=== PATIENT | female | born 1960 | race Caucasian/White ===

== ENCOUNTER 2023-07-01 11:01 | Emergency (ER) | payer MEDICARE, SELFPAY ==
--- NOTE | ~2023-07-01 | CT_ITS ---
EXAMINATION: CT abdomen pelvis w con DATE: 07/01/2023 12:59 INDICATION: Abdominal pain TECHNIQUE: Computed tomography (CT) of the abdomen and pelvis was performed with 100 mL Omnipaque-350 intravenous contrast. Automated exposure control and iterative reconstruction technique were employe d. The dose-length product was 860.96 mGy-cm. COMPARISON: None FINDINGS: Severe emphysema in the dependent lower lungs. Mild atelectasis/scarring at the lingula. Calcified ri ght lower lobe nodule and calcified splenic nodules consistent with old granulomatous disease. Heart size is normal. Atherosclerotic coronary artery calcification. No pericardial or pleural effusion. Th ere is mild enlargement of the central pulmonary arteries which can be seen with pulmonary arterial h ypertension. Small sliding-type hiatal hernia. Focal hepatic steatosis at the ligamentum teres. Yudy cystectomy clips the gallbladder fossa. Pancreas and bilateral adrenal glands are normal. Bilateral r enal cysts, tiny on the left and large on the right, the largest measuring up to 5.0 cm. Nonobstructi ng 2-3 mm stone at an upper pole calyx of the right kidney. Normal appendix at the tip of the wanderi ng cecum which is located in the left upper quadrant. There are multiple diverticula along the sigmoi d colon where there is some wall thickening and surrounding inflammatory stranding which could be rel ated to diverticulitis or a distal colitis. No bowel obstruction. Bladder is normal. The uterus is no t identified and has likely been surgically resected. Minimal likely reactive free fluid in the deep pelvis. No abscess or free intraperitoneal gas. Small fat-containing umbilical hernia. No pathologica lly enlarged abdominal or pelvic lymphadenopathy. Relatively recent-appearing L4 burst fracture with linear sclerosis underlying the depressed superior endplate with one third vertebral body height loss and with couple millimeter retropulsion. Severe lower thoracic spondylosis with a few chronic mild c ompression fractures in the lower thoracic spine. IMPRESSION: 1. Radiographically uncomplicated sigmoid diverticulitis versus colitis. 2. Relatively recent-appearing L4 burst fracture. 3. Small sliding-type hiatal hernia. Reviewed, dictated and finalized at location A.
[2023-07-01 11:16] VITALS: BP 131/80; PULSE 110; RESP 20; TEMP 36.4; O2SAT 98
[2023-07-01 12:30] LABS: Basophils Percent Auto 0.2 % (0.2-1.2); Eosinophils Absolute Auto 0.5 K/mm3 (0-0.3); Eosinophils Percent Auto 3.8 % (0-4.4); Hematocrit 43.1 % (37.0-47.0); Immature Granulocyte Absolute 0.08 K/mm3 (0.00-0.031); Immature Granulocyte Percent A 0.6 % (0-0.5); Immature Platelet Fraction Pct 3.4 % (0.9-11.2); Lymphocytes Absolute Auto 1.14 K/mm3 (0.9-3.2); Lymphocytes Percent Auto 9.1 % (18.3-44.2); Mean Corpuscular HGB Conc 27.8 g/dl (32-36); Mean Corpuscular Hemoglobin 20.5 pg (26-34); Mean Corpuscular Volume 73.8 fl (80-100); Mean Platelet Volume 9.6 fl (7.4-10.4); Monocytes Absolute Auto 1.1 K/mm3 (0.1-0.6); Monocytes Percent Auto 8.9 % (2.6-8.5); Neutrophils Absolute Auto 9.6 K/mm3 (1.3-6.7); Neutrophils Percent Auto 77.4 % (45.5-73.1); Platelet Count Result 272 k/mm3 (150-375); Red Blood Count 5.84 M/mm3 (4.2-5.4); Red Cell Distribution Width 18.6 % (11.5-14.5); White Blood Count 12.5 K/mm3 (4.5-10.0)
[2023-07-01 12:38] LABS: Lactic Acid Reflex 2.1 mmol/L (0.7-2.0)
[2023-07-01 12:40] LABS: Alanine Aminotransferase 18 U/L (6-35); Albumin Level 4.1 g/dL (3.5-5.1); Alkaline Phosphatase 113 U/L (38-126); Anion Gap 8 mmol/L (8-16); Aspartate Amino Transferase 21 U/L (14-36); Bilirubin,Total 0.6 mg/dL (0.2-1.3); Blood Urea Nitrogen 16 mg/dL (7-17); Calcium 8.9 mg/dL (8.4-10.2); Carbon Dioxide 27 mmol/L (22-30); Chloride 102 mmol/L (98-107); Estimated CRCL calculation 57 ml/min; Estimated Glomerular Filt Rate > 60; Glucose 74 mg/dL (65-110); Lipase 37 U/L (23-300); Potassium 4.1 mmol/L (3.4-5.0); Sodium 137 mmol/L (137-145)
--- NOTE | 2023-07-01 12:40 | ED.ABDPAIN ---
HPI - Abdominal Pain General Chief Complaint: Abdominal Pain Stated Complaint: abdominal pain Time Seen by Provider: 07/01/23 12:04 History of Present Illness HPI narrative: 63-year-old female present emerged department for evaluation of persistent lower abdominal pain. Patient reports she was seen at [facility] approximately 3 weeks ago and was diagnosed with constipation. Patient was treated with a fleets enema but states that symptoms not improved. Patient states she has not been taking stool softeners. Patient reports she is still passing stool. Patient is complaining of lower abdominal pain. Patient denies any pain with urination Related Data Allergies Allergy/AdvReac Type Severity Reaction Status Date / Time codeine Allergy Unknown Swelling Verified 07/01/23 11:02 of Lip/Tongue/Throat Review of Systems Review of Systems: All systems reviewed & are unremarkable except as noted in HPI and below Exam Narrative: APPEARANCE: Well appearing, no pain, no distress, well-nourished. HEAD: normocephalic, atraumatic. EYES: PERRLA/EOMI, conjunctivae clear. NOSE: Normal no drainage NECK: Supple. No adenopathy, no masses. RESPIRATORY: Airway patent, respirations nonlabored. Clear to auscultation bilaterally, no rales, rhonchi, wheezing. CARDIOVASCULAR: Regular rate and rhythm without murmurs rubs or gallops. ABDOMINAL: Soft, suprapubic tenderness to palpation, nondistended, normal bowel sounds MUSCULOSKELETAL: Moves all extremities. Strength/ROM intact, No edema, No calf tenderness. NEURO: Alert. Cranial nerves II through XII intact. Grossly intact SKIN: Warm, dry. Normal Color Course Course Emergency Course: 63-year-old female presented ED for evaluation of persistent abdominal pain. Patient is afebrile with a leukocytosis of 12.5. Hemoglobin stable at 12.0. No significant abnormalities on her CMP mildly elevated lactic acid at 2.1. Patient does feel improved with treatment. CT scan showed uncomplicated diverticulitis versus colitis. Patient was at the results of the work-up and patient is comfortable with discharge to home. Patient has no underlying medication allergies. Patient was started Augmentin in the emergency department discharged home with Augmentin. Patient was also provided medications for pain control for home. Vital Signs Vital signs: Vital Signs Temperature 97.6 F 07/01/23 11:16 Pulse Rate 110 H 07/01/23 11:16 Respiratory Rate 20 10/20/23 11:16 Blood Pressure 131/80 07/01/23 11:16 Pulse Oximetry 98 07/01/23 11:16 Oxygen Delivery Room Air 07/01/23 11:16 Temperature 97.6 F 07/01/23 11:16 Pulse Rate 102 H 07/01/23 14:12 Respiratory Rate 18 07/01/23 14:12 Blood Pressure 106/82 07/01/23 14:12 Pulse Oximetry 100 07/01/23 14:12 Oxygen Delivery Room Air 07/01/23 11:16 MDM - Abdominal Pain Differential Diagnosis Differential diagnosis: Likely abdominal pain, acute appendicitis, constipation, diverticulitis and small bowel obstruction Lab Data Attestation: I reviewed the patient's lab results. 07/01/23 12:22 07/01/23 12:22 Labs: Lab Results 07/01/23 Range/Units 12:22 WBC 12.5 H (4.5-10.0) K/mm3 RBC 5.84 H (4.2-5.4) M/mm3 Hgb 12.0 (12.0-15.0) g/dL Hct 43.1 (37.0-47.0) % MCV 73.8 L (80-100) fl MCH 20.5 L (26-34) pg MCHC 27.8 L (32-36) g/dl RDW 18.6 H (11.5-14.5) % Plt Count 272 (150-375) k/mm3 MPV 9.6 (7.4-10.4) fl Immature Gran % (Auto) 0.6 H (0-0.5) % Neut % (Auto) 77.4 H (45.5-73.1) % Lymph % (Auto) 9.1 L (18.3-44.2) % [place] % (Auto) 8.9 H (2.6-8.5) % Eos % (Auto) 3.8 (0-4.4) % Baso % (Auto) 0.2 (0.2-1.2) % Lymph # (Auto) 1.14 (0.9-3.2) K/mm3 [place] # (Auto) 1.1 H (0.1-0.6) K/mm3 Eos # (Auto) 0.5 H (0-0.3) K/mm3 Baso # (Auto) 0.0 (0.0-0.1) K/mm3 Abs Immat Gran (auto) 0.08 H (0.00-0.031) K/mm3 Absolute Neuts (auto) 9.6 H (1.3-6.7) K/mm3 Ab
[2023-07-01 12:43] LABS: Hypochromasia 2+ (NORMAL); Platelet Estimate Adequate (Adequate)
[2023-07-01 12:44] LABS: Anisocytosis 1+ (NORMAL); INR 0.9; Microcytosis 1+ (NORMAL); Partial Thromboplastin Time 25.6 SECONDS (22.3-36.8); Prothrombin Time 12.6 Seconds (11.1-14.7); Schistocytes None Seen (NORMAL)
[2023-07-01 13:16] VITALS: BP 136/88; PULSE 101; RESP 16; O2SAT 95
[2023-07-01] MEDS: fentaNYL CITRATE INJ (*CRX) 100 MCG/2 ML VIAL 50 MCG IV PUSH (13:23)
[2023-07-01] MEDS: AMOXICILLIN/CLAVULANATE K 875-125 MG TAB 1 TABLET PO (14:11)
[2023-07-01 14:12] VITALS: BP 106/82; PULSE 102; RESP 18; O2SAT 100
[2023-07-01 15:26] LABS: Reflex Lactic Acid Yes or No Add Lactic
== END 2023-07-01 14:23 | disposition home or self-care (01) ==
PROVIDERS: Emergency Provider Emergency Medicine
DX: K57.92 Diverticulitis of intestine, part unspecified, without perforation or abscess without bleeding (principal)
CPT/HCPCS: 36415; 74177; 80053; 83605; 83690; 85025; 85055; 85610; 85730; 96374; 99284; A9270; J3010; Q9967

== ENCOUNTER 2023-07-04 13:09 | Inpatient (IN) | payer MEDICARE, SELFPAY ==
--- NOTE | ~2023-07-04 | XR_ITS ---
Portable chest x-ray Comparison: 02/19/2019 Clinical History: Shortness of breath Findings: There is patchy, hazy airspace disease bilaterally, left lung worse than right. There is a dditional areas of interstitial prominence. Cardiomediastinal silhouette is stable. Bones and soft t issues are unremarkable. Impression: Patchy hazy and interstitial pulmonary disease bilaterally, left lung worse than right. Correlate for pulmonary edema, infection, and/or underlying chronic interstitial disease. Reviewed, dictated and finalized at location . Impression: Patchy hazy and interstitial pulmonary disease bilaterally, left lung worse nohemi n right. Correlate for pulmonary edema, infection, and/or underlying chronic in terstitial disease.
--- NOTE | ~2023-07-04 | CT_ITS ---
EXAMINATION: CT abdomen pelvis w con DATE: 07/04/2023 18:23 INDICATION: abdominal pain TECHNIQUE: Computed tomography (CT) of the abdomen and pelvis was performed with 200 mL Omnipaque-350 intravenous contrast. Automated exposure control and iterative reconstruction technique were employe d. The dose-length product was 942.24 mGy-cm. COMPARISON: None. FINDINGS: Lower thorax: Severe emphysematous change. Coronary artery calcification. Liver: Normal. Biliary/Gallbladder: Gallbladder is normal. No bile duct dilation. Pancreas: Fatty atrophy. Punctate calcifications may be related to chronic pancreatitis or vascular c alcification. Spleen: Granulomatous calcification. Adrenals:No mass. Kidneys: No suspicious mass, obstructing stone, or hydronephrosis. Multiple simple renal cysts and lyons bcentimeter hypodensities that are too small to characterize but most likely represent cysts. GI tract: Mild distal esophageal and gastric wall edema. No small or large bowel dilation. Normal hayes endix. Long segment area of wall thickening, prominent diverticulosis and surrounding inflammatory ch jose in the sigmoid colon, not significantly changed. No abscess or free air. Mesentery/Peritoneum: No ascites, mass, or free air. Retroperitoneum: No mass. Atherosclerotic abdominal aortic and/or arterial calcifications. Pelvis: Normal urinary bladder. Absent uterus. Soft Tissues: Soft tissues and body wall unremarkable. Bones: No acute osseous finding. Stable L4 burst fracture. IMPRESSION: Unchanged sigmoid diverticulitis versus sigmoid colitis. No CT evidence of abscess or perforation. Reviewed, dictated and finalized at location K. IMPRESSION: Unchanged sigmoid diverticulitis versus sigmoid colitis. No CT evidence of absc ess or perforation.
[2023-07-04 13:48] VITALS: BP 128/88; PULSE 114; RESP 20; TEMP 36.2; O2SAT 87
--- NOTE | 2023-07-04 14:54 | ED.GENADULT ---
HPI - General Adult General Chief complaint: Abdominal Pain <Rnadi Lopez A/C TECHNICIAN - Last Filed: 07/04/23 14:56> Stated complaint: abdominal pain <Randi Lopez A/C TECHNICIAN - Last Filed: 07/04/23 14:56> Time Seen by Provider: 07/04/23 17:58 <Randi Hutchison January A/C TECHNICIAN - Last Filed: 07/04/23 14:56> Source: patient <Nakia Neff PA-C - Last Filed: 07/04/23 20:11> Mode of arrival: ambulatory <Nakia Neff PA-C - Last Filed: 07/04/23 20:11> Limitations: no limitations <Nakia Neff PA-C - Last Filed: 07/04/23 20:11> History of Present Illness HPI narrative: Dipti Luna is a 63 y/o female with PMhx of Diverticulitis , she states she was here 3 days ago, d/c home with oral antibiotics but she came back today because her pain is getting much worse to her lower abdomen , worse then it was tuesday. She has been taking her antibiotics. reports some nausea/ last BM was today <Randi Hutchison January, A/C TECHNICIAN - Last Filed: 07/04/23 14:56> Dipti Luna is a 63 y/o female with PMhx of Diverticulitis , she states she was here 3 days ago, d/c home with oral antibiotics but she came back today because her pain is getting much worse to her lower abdomen , worse than it was tuesday. She has been taking her antibiotics. reports some nausea/ last BM was today. Diagnosed with diverticulitis on 07/01, started on oral Augmentin. Denies fevers. Reports occasional rectal bleeding, but states her bowels have been moving. Last took ibuprofen this morning. <Nakia Neff PA-C - Last Filed: 07/04/23 20:11> Related Data Home medications: Home Medications Medication Instructions Recorded Confirmed albuterol sulfate 2.5 mg/3 mL 2.5 mg QID 07/04/23 07/04/23 (0.083 %) solution for nebulization albuterol sulfate 90 mcg/actuation 2 puff inhalation Q6H PRN Wheezing 07/04/23 07/04/23 aerosol inhaler alprazolam 1 mg tablet 1 mg PO TID 07/04/23 07/04/23 atorvastatin 10 mg tablet 10 mg PO QHS 07/04/23 07/04/23 diclofenac sodium 75 mg 75 mg PO BID 07/04/23 07/04/23 tablet,delayed release dicyclomine 20 mg tablet 20 mg PO BID 07/04/23 07/04/23 esomeprazole magnesium 40 mg 40 mg PO BID 07/04/23 07/04/23 capsule,delayed release fluticasone fur. 200 mcg-umeclid 1 inh inhalation DAILY 07/04/23 07/04/23 62.5 mcg-vilant 25 mcg inhalat.powder (Trelegy Ellipta) hydroxyzine HCl 25 mg tablet 25 mg PO DAILY PRN Anxiety 07/04/23 07/04/23 metoclopramide HCl 10 mg tablet 10 mg PO QID 07/04/23 07/04/23 ondansetron HCl 4 mg tablet 4 mg PO Q6H 07/04/23 07/04/23 tizanidine 2 mg tablet 2 mg PO QID 07/04/23 07/04/23 valacyclovir 500 mg tablet 500 mg PO DAILY 07/04/23 07/04/23 venlafaxine 150 mg 300 mg PO DAILY 07/04/23 07/04/23 capsule,extended release 24 hr <Randi Hutchison January, - Last Filed: 07/04/23 14:56> Allergies/adverse reactions: Allergies Allergy/AdvReac Type Severity Reaction Status Date / Time codeine Allergy Unknown Swelling Verified 07/04/23 13:10 of Lip/Tongue/Throat <Randi Hutchison January, - Last Filed: 07/04/23 14:56> Review of Systems Review of Systems: CONSTITUTIONAL: Denies fever, chills, or sweats. CARDIOVASCULAR: Denies chest pain. RESPIRATORY: Denies dyspnea. GASTROINTESTINAL: See HPI. GENITOURINARY: Denies dysuria or hematuria. SKIN: Denies rash or itching. MUSCULOSKELETAL: Denies back pain, joint pain, or myalgia. <Nakia Neff PA-C - Last Filed: 07/04/23 20:11> All systems reviewed & are unremarkable except as noted in HPI and below <Nakia Neff PA-C - Last Filed: 07/04/23 20:11> [facility] Social History Social History: Social History Smoking status: Former smoker Alcohol intake: never Substance use: never Lack of Transportation: YES Lack of Food: Often True Current Housing: I Have Housing Concerned About Future Housing: No Difficulty Paying Gas/Electric Bills: No
[2023-07-04 15:05] LABS: Basophils Percent Auto 0.4 % (0.2-1.2); Eosinophils Absolute Auto 0.5 K/mm3 (0-0.3); Eosinophils Percent Auto 6.6 % (0-4.4); Hematocrit 43.1 % (37.0-47.0); Hemoglobin 12.2 g/dL (12.0-15.0); Immature Granulocyte Absolute 0.12 K/mm3 (0.00-0.031); Immature Granulocyte Percent A 1.5 % (0-0.5); Immature Platelet Fraction Pct 3.5 % (0.9-11.2); Lymphocytes Absolute Auto 1.05 K/mm3 (0.9-3.2); Mean Corpuscular HGB Conc 28.3 g/dl (32-36); Mean Corpuscular Hemoglobin 20.5 pg (26-34); Mean Corpuscular Volume 72.4 fl (80-100); Monocytes Absolute Auto 0.8 K/mm3 (0.1-0.6); Monocytes Percent Auto 9.3 % (2.6-8.5); Neutrophils Absolute Auto 5.6 K/mm3 (1.3-6.7); Neutrophils Percent Auto 69.2 % (45.5-73.1); Platelet Count Result 346 k/mm3 (150-375); Red Blood Count 5.95 M/mm3 (4.2-5.4); Red Cell Distribution Width 18.3 % (11.5-14.5); White Blood Count 8.1 K/mm3 (4.5-10.0)
[2023-07-04 15:13] LABS: Alanine Aminotransferase 16 U/L (6-35); Alkaline Phosphatase 150 U/L (38-126); Anion Gap 10 mmol/L (8-16); Aspartate Amino Transferase 21 U/L (14-36); Bilirubin,Total 0.5 mg/dL (0.2-1.3); Blood Urea Nitrogen 12 mg/dL (7-17); Calcium 8.9 mg/dL (8.4-10.2); Carbon Dioxide 22 mmol/L (22-30); Chloride 106 mmol/L (98-107); Estimated CRCL calculation 72 ml/min; Estimated Glomerular Filt Rate > 60; Glucose 91 mg/dL (65-110); Lipase 86 U/L (23-300); Potassium 3.8 mmol/L (3.4-5.0); Sodium 138 mmol/L (137-145)
[2023-07-04 15:25] LABS: Platelet Estimate Adequate (Adequate); Schistocytes None Seen (NORMAL)
[2023-07-04 15:26] LABS: Anisocytosis 2+ (NORMAL); Microcytosis 2+ (NORMAL)
[2023-07-04 15:27] LABS: Hypochromasia 1+ (NORMAL)
--- NOTE | 2023-07-04 18:33 | ED.ABDPAIN ---
HPI - Abdominal Pain General Chief Complaint: Abdominal Pain Stated Complaint: abdominal pain Time Seen by Provider: 07/04/23 17:58 Related Data Allergies Allergy/AdvReac Type Severity Reaction Status Date / Time codeine Allergy Unknown Swelling Verified 07/04/23 13:10 of Lip/Tongue/Throat Course Vital Signs Vital signs: Vital Signs Temperature 97.2 F L 07/04/23 13:48 Pulse Rate 114 H 07/04/23 13:48 Respiratory Rate 20 07/04/23 13:48 Blood Pressure 128/88 07/04/23 13:48 Pulse Oximetry 87 L 07/04/23 13:48 Oxygen Delivery Room Air 07/04/23 13:48 Temperature 97.2 F L 07/04/23 13:48 Pulse Rate 114 H 07/04/23 13:48 Respiratory Rate 20 07/04/23 13:48 Blood Pressure 128/88 07/04/23 13:48 Pulse Oximetry 87 L 07/04/23 13:48 Oxygen Delivery Room Air 07/04/23 13:48 MDM - Abdominal Pain Lab Data 07/04/23 14:54 07/04/23 14:54 Labs: Lab Results 07/04/23 07/04/23 Range/Units 14:54 14:55 WBC 8.1 (4.5-10.0) K/mm3 RBC 5.95 H (4.2-5.4) M/mm3 Hgb 12.2 (12.0-15.0) g/dL Hct 43.1 (37.0-47.0) % MCV 72.4 L (80-100) fl MCH 20.5 L (26-34) pg MCHC 28.3 L (32-36) g/dl RDW 18.3 H (11.5-14.5) % Plt Count 346 (150-375) k/mm3 MPV 11.0 H (7.4-10.4) fl Immature Gran % (Auto) 1.5 H (0-0.5) % Neut % (Auto) 69.2 (45.5-73.1) % Lymph % (Auto) 13.0 L (18.3-44.2) % [place] % (Auto) 9.3 H (2.6-8.5) % Eos % (Auto) 6.6 H (0-4.4) % Baso % (Auto) 0.4 (0.2-1.2) % Lymph # (Auto) 1.05 (0.9-3.2) K/mm3 [place] # (Auto) 0.8 H (0.1-0.6) K/mm3 Eos # (Auto) 0.5 H (0-0.3) K/mm3 Baso # (Auto) 0.0 (0.0-0.1) K/mm3 Abs Immat Gran (auto) 0.12 H (0.00-0.031) K/mm3 Absolute Neuts (auto) 5.6 (1.3-6.7) K/mm3 Absolute Nucleated RBC 0.0 (0.0-0.012) K/mm3 Nucleated RBC % 0.0 (0.0-0.2) % Platelet Estimate Adequate (Adequate) % Immature Plt Fraction 3.5 (0.9-11.2) % Hypochromasia 1+ (NORMAL) Anisocytosis 2+ (NORMAL) Microcytosis 2+ (NORMAL) Schistocytes None seen (NORMAL) Sodium 138 (137-145) mmol/L Potassium 3.8 (3.4-5.0) mmol/L Chloride 106 (98-107) mmol/L Carbon Dioxide 22 (22-30) mmol/L Anion Gap 10 (8-16) mmol/L BUN 12 (7-17) mg/dL Creatinine 0.70 (0.7-1.0) mg/dL Estim Creat Clear Calc 72 ml/min Estimated GFR > 60 (59 - ) Glucose 91 (65-110) mg/dL Lactic Acid 1.0 (0.7-2.0) mmol/L Calcium 8.9 (8.4-10.2) mg/dL Total Bilirubin 0.5 (0.2-1.3) mg/dL AST 21 (14-36) U/L ALT 16 (6-35) U/L Alkaline Phosphatase 150 H (38-126) U/L Total Protein 8.0 (6.3-8.2) g/dL Albumin 4.0 (3.5-5.1) g/dL Lipase 86 (23-300) U/L Discharge Plan Discharge Instructions: Antibiotic Form Prescriptions: No Action amoxicillin-pot clavulanate 875-125 mg tablet 1 tablet PO Q12H Qty: 14 0RF Follow-up/Referrals: UNKNOWN,DOCTOR [Non-Staff] -
[2023-07-04] MEDS: fentaNYL CITRATE INJ (*CRX) 100 MCG/2 ML VIAL 50 MCG IV PUSH ×3 (18:50→22:19)
[2023-07-04] MEDS: ONDANSETRON INJ 4 MG/2 ML VIAL IV PUSH (18:50)
--- NOTE | 2023-07-04 19:34 | PM.IMHP ---
H&P: HPI History of Present Illness Date/Time: 07/04/23 19:34 Chief Complaint: LLQ pain Narrative: This is a 63-year-old female with past medical history significant for COPD/emphysema, uses 1 L of supplemental oxygen with activity dyslipidemia. Patient presents to the emergency room due to left lower quadrant pain which has been present for the last 3 weeks or so had been to the emergency room the day before and after extensive workup was sent home on oral antibiotics however patient returns due to nausea vomiting and persistent left lower quadrant pain, fevers, chills, generalized malaise, generalize weakness, poor per orally intake, poor appetite. In emergency room patient was found to have low pulse ox and placed on supplemental oxygen by nasal cannula. preliminary workup was significant for CT of abdomen and pelvis was reported as: EXAMINATION: CT abdomen pelvis w con DATE: 07/04/2023 18:23 INDICATION: abdominal pain TECHNIQUE: Computed tomography (CT) of the abdomen and pelvis was performed with 200 mL Omnipaque-350 intravenous contrast. Automated exposure control and iterative reconstruction technique were employed. The dose-length product was 942.24 mGy-cm. COMPARISON: None. FINDINGS: Lower thorax: Severe emphysematous change. Coronary artery calcification. Liver: Normal.? Biliary/Gallbladder: Gallbladder is normal. No bile duct dilation. Pancreas: Fatty atrophy. Punctate calcifications may be related to chronic pancreatitis or vascular calcification. Spleen: Granulomatous calcification. Adrenals:No mass. Kidneys: No suspicious mass, obstructing stone, or hydronephrosis. Multiple simple renal cysts and subcentimeter hypodensities that are too small to characterize but most likely represent cysts. GI tract: Mild distal esophageal and gastric wall edema. No small or large bowel dilation. Normal appendix. Long segment area of wall thickening, prominent diverticulosis and surrounding inflammatory change in the sigmoid colon, not significantly changed. No abscess or free air. Mesentery/Peritoneum: No ascites, mass, or free air. Retroperitoneum: No mass. Atherosclerotic abdominal aortic and/or arterial calcifications. Pelvis: Normal urinary bladder. Absent uterus. Soft Tissues: Soft tissues and body wall unremarkable. Bones:? No acute osseous finding. Stable L4 burst fracture. IMPRESSION: Unchanged sigmoid diverticulitis versus sigmoid colitis. No CT evidence of abscess or perforation. Review of Systems Review of Systems: Left lower quadrant pain Constitutional: Constitutional: Reports chills, Reports fatigue, Reports fever(s), Reports malaise, Reports night sweats, Reports poor appetite and Reports weakness Eyes: Eyes: Denies change in vision ENT: Denies dysphagia, Denies vertigo, Denies dizziness and Denies odynophagia Cardiovascular: Cardiovascular: Denies chest pain, Denies radiating jaw, neck or arm pain and Denies palpitations Respiratory: Respiratory: Denies cough and Denies excessive phlegm production Gastrointestinal: Gastrointestinal: Reports abdominal pain, Reports hematochezia (Single episode), Denies dyspepsia, Denies heartburn, Denies diarrhea, Reports nausea and Denies vomiting Genitourinary: Genitourinary: Denies dysuria and Denies flank pain Musculoskeletal: Musculoskeletal: Denies arthralgias, Denies joint swelling and Denies muscle weakness Integumentary/Breasts: Skin/Breast: Denies rash Neurologic: Denies vertigo, Denies dizziness, Denies focal weakness and Denies Sensory deficit (Neuro) Psychiatric: Psychiatric: Reports no additional psychiatric complaints and Reports as per HPI Endocrine: Endocrine: Denies cold intolerance, Denies flushing, Denies heat intolerance, Denies polyphagia, Denies polydipsia and Denies palpitations Hematologic/Lymphatic: Hematologic/Lymphatic: Reports no additional hematologic/lymphatic complaints and Reports as per HPI Allergic/Immunologic: Allergic/Immuno
[2023-07-04] MEDS: SODIUM CHLORIDE 0.9% IV 1,000 ML 999 ML IV CONT (19:50)
[2023-07-04] MEDS: PIPERACILLN/TAZ 3.375GM/NS50ML 3.375 GM/50 ML BAG IVPB (19:51)
[2023-07-04 20:28] VITALS: BP 106/71; PULSE 99; RESP 18; O2SAT 97
[2023-07-04] MEDS: ACETAMINOPHEN 500 MG TABLET 1000 MG PO (20:41)
[2023-07-04 21:00] VITALS: BP 120/86; PULSE 101; RESP 16; TEMP 35.9; O2SAT 94
[2023-07-04 21:01] LABS: Appearance Urine Clear (Clear); Bacteria Urine None Seen /hpf; Bilirubin Urine Negative (Negative); Blood Urine Negative (Negative); Color Urine Yellow (Yellow); Glucose Urine UA Negative (Negative); Ketones Urine Negative (Negative); Leukocyte Esterase Ur Negative LEU/UL (Negative); Need Manual Microscopic Reviewed; Nitrate Urine Negative (Negative); Non Pathogenic Casts 0-2; Protein Urine Trace mg/dL (Negative); RBC Urine 0-2 /hpf (0-2); Squamous Epithelial Cell Urine None seen /hpf (Few); Urobilinogen Urine 0.2 mg/dL (<2.0); WBC Urine 0-5 /hpf
[2023-07-04 21:04] LABS: Add Urine Microscopic? YES; Specific Grav Ur 1.092 (1.001-1.035)
[2023-07-04 21:58] VITALS: BMI 30.7
--- NOTE | 2023-07-04 22:00 | ADMGEN ---
This patient, Dipti Luna, was admitted to [facility] Surg Room 321-02. Patient/family oriented to hospital policies and general routines including ID bracelet, bed and alarms, visiting hours, pain management, procedures, bathroom and other care routines, personal items, smoking policy, room service/diet, and visiting hours. Information on how to activate the Rapid Response Team has been discussed. Patient/Family are encouraged to report perceived risks to care and to ask questions if they do not understand what they are told or what they should do.
--- NOTE | 2023-07-04 22:36 | PC.NURSE ---
Home meds counted by myself and second RN. Meds placed in security bag and then placed in home med boring machine operator horizontal med room.
[2023-07-05] VITALS (13 sets, daily range): BP systolic 100–125; BP diastolic 61–80; PULSE 87–99; RESP 18–20; TEMP 35.5–36.3; O2SAT 93–94
[2023-07-05] MEDS: PIPERACILLN/TAZ 3.375GM/NS50ML 3.375 GM/50 ML BAG IVPB ×4 (01:22→20:53)
[2023-07-05] MEDS: HYDROmorphone HCL INJ (*CRX) 1 MG/ML SYR 0.5 MG IV PUSH ×5 (01:23→19:59)
[2023-07-05] MEDS: FLUTICASONE/UMECLIDIN/VILANTER 200-62.5-25 MCG ELLIPTA 1 PUFF INHALATION (08:30)
[2023-07-05] MEDS: ALBUTEROL SULFATE NEB 2.5 MG/3 ML INH INHALATION ×4 (08:30→20:28)
[2023-07-05] MEDS: DICLOFENAC SOD 75 MG TABLET.EC PO ×2 (09:22→20:53)
[2023-07-05] MEDS: VENLAFAXINE HCL XR 75 MG CAP.ER.24H 300 MG PO (09:23)
[2023-07-05] MEDS: DICYCLOMINE HCL 10 MG CAPSULE 20 MG PO ×2 (09:23→16:48)
[2023-07-05] MEDS: ALPRAZolam (*CRX) 0.5 MG TABLET 1 MG PO ×3 (09:24→16:48)
[2023-07-05] MEDS: valACYclovir HCL 500 MG TABLET PO (09:25)
[2023-07-05] MEDS: TIZANIDINE HCL 2 MG TABLET PO ×4 (09:25→20:53)
[2023-07-05] MEDS: PANTOPRAZOLE 40 MG TABLET PO ×2 (09:26→20:53)
--- NOTE | 2023-07-05 09:52 | P.PNIM_ITS ---
Progress Note: A&P Assessment and Plan (1) Sepsis: Code(s): A41.9 - Sepsis, unspecified organism Status: Acute Assessment and Plan: 07/05/23: * Patient meeting sepsis criteria with white blood cell count 12.5, respiratory rate 20 rate 99, patient has an active diverticulitis infection. lactic acid 2.1 without hypotension or drop in B/P from baseline. * CT scan of abdomen/pelvis showing unchanged sigmoid diverticulitis versus sigmoid colitis, no CT evidence of abscess or perforation. * Lactic acid down to 1.0 this morning * Patient received 1L NS while in ER * Will obtain blood cultures x2 today, however she has already received antibiotics. * Patient currently on Zosyn 3.375 g q.6 hours * continue to trend labs (2) Diverticulitis large intestine: Qualifiers: Diverticulitis bleeding: with bleeding Diverticulitis complication: without perforation or abscess Qualified Code(s): K57.33 - Diverticulitis of large intestine without perforation or abscess with bleeding Code(s): K57.32 - Diverticulitis of large intestine without perforation or abscess without bleeding Status: Acute Assessment and Plan: 07/04/23: (copied from chart) * Admit to med tele * Patient is started on Zosyn * Cultures in progress * General surgery consult * Supportive care * Continue to monitor 07/05/23: * CT scan of abdomen/pelvis Showing unchanged sigmoid diverticulitis versus sigmoid colitis, no CT evidence of abscess or perforation. * will obtain blood cultures x2 today * continue Zosyn * continue cardiac monitoring * general surgery consulted and is following (3) Acute on chronic respiratory failure with hypoxia: Code(s): J96.21 - Acute and chronic respiratory failure with hypoxia Status: Acute Assessment and Plan: 07/04/23: (copied from chart) * On supplemental oxygen by nasal cannula * Likely secondary to acute illness * Continue to monitor 07/05/23: * patient currently on 2 L nasal cannula, she does use oxygen home * chest x-ray revealed patchy and interstitial pulmonary disease bilaterally, left greater than right. * albuterol neb treatments ordered q.i.d. scheduled, and q.6 hours p.r.n. * continue to monitor (4) Left lower quadrant abdominal pain: Code(s): R10.32 - Left lower quadrant pain Status: Acute Assessment and Plan: 07/04/23: (copied from chart) * Likely secondary to diverticulitis * Supportive care 07/05/23: * secondary to diverticulitis * dilaudid 0.5 mg IV push q.3 hours p.r.n. pain ordered (5) COPD exacerbation: Code(s): J44.1 - Chronic obstructive pulmonary disease with (acute) exacerbation Status: Acute Assessment and Plan: 07/04/23: (copied from chart) * On nebulizer treatments * Continue to monitor 07/05/23: * currently on 2 L nasal cannula * continue nebulizer treatments * see above Time Spent With Patient Time with patient: Greater than 35 minutes Subjective Date/time seen: 07/05/23 09:52 Interval history: This is a 63 year old female who presents to the ER with worsening lower nausea, vomiting, abdominal pain, fever, chills, fatigue, weakness, poor appetite since Tuesday. She was seen 3 days prior and was DC home with oral antibiotics for diverticulitis. workup in hospital includes CT of abdomen pelvis with contrast showing unchanged sigmoid diverticulitis versus sigmoid colitis, no CT evidence of abscess or perforation. No blood or urine cultures obtained. Patient was started on Zosyn 3.375 g q.6 hours. W
--- NOTE | 2023-07-05 09:52 | PM.IMPN ---
Progress Note: A&P Assessment and Plan (1) Sepsis: Code(s): A41.9 - Sepsis, unspecified organism Status: Acute Assessment and Plan: 07/05/23: Patient meeting sepsis criteria with white blood cell count 12.5, respiratory rate 20 rate 99, patient has an active diverticulitis infection. lactic acid 2.1 without hypotension or drop in B/P from baseline. CT scan of abdomen/pelvis showing unchanged sigmoid diverticulitis versus sigmoid colitis, no CT evidence of abscess or perforation. Lactic acid down to 1.0 this morning Patient received 1L NS while in ER Will obtain blood cultures x2 today, however she has already received antibiotics. Patient currently on Zosyn 3.375 g q.6 hours continue to trend labs (2) Diverticulitis large intestine: Qualifiers: Diverticulitis bleeding: with bleeding Diverticulitis complication: without perforation or abscess Qualified Code(s): K57.33 - Diverticulitis of large intestine without perforation or abscess with bleeding Code(s): K57.32 - Diverticulitis of large intestine without perforation or abscess without bleeding Status: Acute Assessment and Plan: 07/04/23: (copied from chart) Admit to med tele Patient is started on Zosyn Cultures in progress General surgery consult Supportive care Continue to monitor 07/05/23: CT scan of abdomen/pelvis Showing unchanged sigmoid diverticulitis versus sigmoid colitis, no CT evidence of abscess or perforation. will obtain blood cultures x2 today continue Zosyn continue cardiac monitoring general surgery consulted and is following (3) Acute on chronic respiratory failure with hypoxia: Code(s): J96.21 - Acute and chronic respiratory failure with hypoxia Status: Acute Assessment and Plan: 07/04/23: (copied from chart) On supplemental oxygen by nasal cannula Likely secondary to acute illness Continue to monitor 07/05/23: patient currently on 2 L nasal cannula, she does use oxygen home chest x-ray revealed patchy and interstitial pulmonary disease bilaterally, left greater than right. albuterol neb treatments ordered q.i.d. scheduled, and q.6 hours p.r.n. continue to monitor (4) Left lower quadrant abdominal pain: Code(s): R10.32 - Left lower quadrant pain Status: Acute Assessment and Plan: 07/04/23: (copied from chart) Likely secondary to diverticulitis Supportive care 07/05/23: secondary to diverticulitis dilaudid 0.5 mg IV push q.3 hours p.r.n. pain ordered (5) COPD exacerbation: Code(s): J44.1 - Chronic obstructive pulmonary disease with (acute) exacerbation Status: Acute Assessment and Plan: 07/04/23: (copied from chart) On nebulizer treatments Continue to monitor 07/05/23: currently on 2 L nasal cannula continue nebulizer treatments see above Time Spent With Patient Time with patient: Greater than 35 minutes Subjective Date/time seen: 07/05/23 09:52 Interval history: This is a 63 year old female who presents to the ER with worsening lower nausea, vomiting, abdominal pain, fever, chills, fatigue, weakness, poor appetite since Tuesday. She was seen 3 days prior and was DC home with oral antibiotics for diverticulitis. workup in hospital includes CT of abdomen pelvis with contrast showing unchanged sigmoid diverticulitis versus sigmoid colitis, no CT evidence of abscess or perforation. No blood or urine cultures obtained. Patient was started on Zosyn 3.375 g q.6 hours. While in the ED she was and to be hypoxic requiring 2 L nasal cannula. Chest x-ray was performed showing patchy hazy and interstitial pulmonary disease bilaterally, L>R. Initial white blood cell count 12.5, absolute neutrophils 9.6, lactic acid 2.1 without hypotension. Patient initially meeting sepsis criteria with a white blood count 12.5, pulse rate 99, respiratory rate 20 on initial assessment. UA was also obtained which was
[2023-07-05 10:27] LABS: Hematocrit 40.9 % (37.0-47.0); Hemoglobin 11.4 g/dL (12.0-15.0); Mean Corpuscular HGB Conc 27.9 g/dl (32-36); Mean Corpuscular Hemoglobin 20.5 pg (26-34); Mean Corpuscular Volume 73.7 fl (80-100); Mean Platelet Volume 10.4 fl (7.4-10.4); Platelet Count Result 356 k/mm3 (150-375); Red Blood Count 5.55 M/mm3 (4.2-5.4); Red Cell Distribution Width 17.4 % (11.5-14.5); White Blood Count 5.3 K/mm3 (4.5-10.0)
[2023-07-05 10:33] LABS: Alanine Aminotransferase 16 U/L (6-35); Albumin Level 3.8 g/dL (3.5-5.1); Alkaline Phosphatase 119 U/L (38-126); Anion Gap 9 mmol/L (8-16); Aspartate Amino Transferase 21 U/L (14-36); Bilirubin,Total 0.4 mg/dL (0.2-1.3); Blood Urea Nitrogen 8 mg/dL (7-17); Calcium 8.7 mg/dL (8.4-10.2); Carbon Dioxide 21 mmol/L (22-30); Chloride 108 mmol/L (98-107); Estimated CRCL calculation 71 ml/min; Estimated Glomerular Filt Rate > 60; Glucose 83 mg/dL (65-110); Potassium 3.1 mmol/L (3.4-5.0); Sodium 138 mmol/L (137-145)
[2023-07-05] MEDS: ATORVASTATIN 10 MG TABLET PO (20:53)
[2023-07-06] VITALS (14 sets, daily range): BP systolic 90–123; BP diastolic 65–73; PULSE 75–93; RESP 14–18; TEMP 35.7–36.4; O2SAT 91–99
[2023-07-06] MEDS: HYDROmorphone HCL INJ (*CRX) 1 MG/ML SYR 0.5 MG IV PUSH ×4 (02:20→21:24)
[2023-07-06] MEDS: PIPERACILLN/TAZ 3.375GM/NS50ML 3.375 GM/50 ML BAG IVPB ×4 (02:20→20:13)
[2023-07-06 06:01] LABS: Hematocrit 34.7 % (37.0-47.0); Hemoglobin 9.7 g/dL (12.0-15.0); Mean Corpuscular Hemoglobin 20.3 pg (26-34); Mean Corpuscular Volume 72.4 fl (80-100); Mean Platelet Volume 10.1 fl (7.4-10.4); Platelet Count Result 298 k/mm3 (150-375); Red Blood Count 4.79 M/mm3 (4.2-5.4); Red Cell Distribution Width 17.3 % (11.5-14.5); White Blood Count 4.3 K/mm3 (4.5-10.0)
[2023-07-06 06:16] LABS: Potassium 3.5 mmol/L (3.4-5.0)
[2023-07-06 06:19] LABS: Alanine Aminotransferase 23 U/L (6-35); Albumin Level 3.1 g/dL (3.5-5.1); Alkaline Phosphatase 139 U/L (38-126); Anion Gap 7 mmol/L (8-16); Aspartate Amino Transferase 39 U/L (14-36); Bilirubin,Total 0.4 mg/dL (0.2-1.3); Blood Urea Nitrogen 6 mg/dL (7-17); Calcium 8.4 mg/dL (8.4-10.2); Carbon Dioxide 24 mmol/L (22-30); Chloride 108 mmol/L (98-107); Estimated CRCL calculation 71 ml/min; Estimated Glomerular Filt Rate > 60; Glucose 79 mg/dL (65-110); Sodium 139 mmol/L (137-145)
[2023-07-06] MEDS: DICYCLOMINE HCL 10 MG CAPSULE 20 MG PO ×2 (07:41→16:55)
[2023-07-06] MEDS: DICLOFENAC SOD 75 MG TABLET.EC PO ×2 (08:11→20:13)
[2023-07-06] MEDS: ALPRAZolam (*CRX) 0.5 MG TABLET 1 MG PO ×3 (08:11→16:55)
[2023-07-06] MEDS: ENOXAPARIN 40 MG/0.4 ML SYRINGE SUB-Q (08:11)
[2023-07-06] MEDS: PANTOPRAZOLE 40 MG TABLET PO ×2 (08:11→20:12)
[2023-07-06] MEDS: TIZANIDINE HCL 2 MG TABLET PO ×4 (08:11→20:12)
[2023-07-06] MEDS: valACYclovir HCL 500 MG TABLET PO (08:12)
[2023-07-06] MEDS: VENLAFAXINE HCL XR 75 MG CAP.ER.24H 300 MG PO (08:12)
[2023-07-06] MEDS: ALBUTEROL SULFATE NEB 2.5 MG/3 ML INH INHALATION ×4 (09:12→22:15)
[2023-07-06] MEDS: FLUTICASONE/UMECLIDIN/VILANTER 200-62.5-25 MCG ELLIPTA 1 PUFF INHALATION (09:12)
--- NOTE | 2023-07-06 16:05 | PM.IMPN ---
Progress Note: A&P Assessment and Plan (1) Sepsis: Code(s): A41.9 - Sepsis, unspecified organism Status: Acute Assessment and Plan: Patient meeting sepsis criteria with white blood cell count 12.5, respiratory rate 20 rate 99, patient has an active diverticulitis infection. lactic acid 2.1 without hypotension or drop in B/P from baseline. CT scan of abdomen/pelvis showing unchanged sigmoid diverticulitis versus sigmoid colitis, no CT evidence of abscess or perforation. Lactic acid Trended down Blood cultures x2 ordered Patient currently on Zosyn 3.375 g q.6 hours Continue to trend labs (2) Diverticulitis large intestine: Qualifiers: Diverticulitis bleeding: with bleeding Diverticulitis complication: without perforation or abscess Qualified Code(s): K57.33 - Diverticulitis of large intestine without perforation or abscess with bleeding Code(s): K57.32 - Diverticulitis of large intestine without perforation or abscess without bleeding Status: Acute Assessment and Plan: CT scan of abdomen/pelvis showing unchanged sigmoid diverticulitis versus sigmoid colitis, no CT evidence of abscess or perforation. blood cultures pending continue Zosyn continue monitor labs. Advance diet as tolerated (3) Acute on chronic respiratory failure with hypoxia: Code(s): J96.21 - Acute and chronic respiratory failure with hypoxia Status: Acute Assessment and Plan: patient currently on 2 L nasal cannula, she does use oxygen home with activity chest x-ray revealed patchy and interstitial pulmonary disease bilaterally, left greater than right. albuterol neb treatments ordered q.i.d. scheduled, and q.6 hours p.r.n. continue to monitor (4) Left lower quadrant abdominal pain: Code(s): R10.32 - Left lower quadrant pain Status: Acute Assessment and Plan: secondary to diverticulitis dilaudid 0.5 mg IV push q.3 hours p.r.n. pain ordered (5) COPD exacerbation: Code(s): J44.1 - Chronic obstructive pulmonary disease with (acute) exacerbation Status: Acute Assessment and Plan: currently on 2 L nasal cannula continue nebulizer treatments see above Subjective Date/time seen: 07/06/23 16:05 Interval history: patient doing well today still complains of some moderate left lower quadrant pain. It is well controlled with medications. Plan on advancing diet as tolerated. Once able to tolerate diet will discharge. Hopeful discharge tomorrow. Exam Narrative: GENERAL: Comfortable, no acute distress HENMT: moist mucous membranes EYES: EOM intact b/l NECK: no lymphadenopathy RESPIRATORY: clear to auscultation CARDIO: RRR GI: soft, Mild left lower quadrant tenderness, bowel sounds present SKIN: no rashes EXTREMITIES: no edema, redness or tenderness Objective Data Vital Signs Vital Signs: Vital Signs - 24 hr 07/05/23 16:38 07/05/23 16:47 07/05/23 20:29 Temperature Pulse Rate 93 92 92 Respiratory Rate 18 18 18 Blood Pressure Pulse Oximetry 94 Oxygen Delivery Nasal Cannula Oxygen Flow Rate 1 07/05/23 20:29 07/05/23 20:34 07/05/23 22:26 Temperature 96 F L Pulse Rate 92 93 88 Respiratory Rate 18 18 20 Blood Pressure 100/62 Pulse Oximetry 93 Oxygen Delivery Oxygen Flow Rate 07/06/23 06:00 07/06/23 08:00 07/06/23 09:13 Temperature 96.3 F L Pulse Rate 84 Respiratory Rate 18 Blood Pressure 120/73 Pulse Oximetry 96 96 91 Oxygen Delivery Nasal Cannula Nasal Cannula Oxygen Flow Rate 2 2 07/06/23 09:10 07/06/23 09:22 07/06/23 14:00 Temperature 96.3 F L Pulse Rate 88 93 93 Respiratory Rate 18 18 14 Blood Pressure 123/70 Pulse Oximetry 97 Oxygen Delivery Oxygen Flow Rate 07/06/23 14:27 07/06/23 14:37 Temperature Pulse Rate 80 83 Respiratory Rate 18 18 Blood Pressure Pulse Oximetry Oxygen Delivery
[2023-07-06] MEDS: ATORVASTATIN 10 MG TABLET PO (20:13)
[2023-07-07] MEDS: PIPERACILLN/TAZ 3.375GM/NS50ML 3.375 GM/50 ML BAG IVPB ×3 (02:09→13:11)
[2023-07-07] MEDS: HYDROmorphone HCL INJ (*CRX) 1 MG/ML SYR 0.5 MG IV PUSH ×2 (02:25→09:14)
[2023-07-07 04:54] VITALS: BP 108/58; PULSE 77; RESP 18; TEMP 36.4; O2SAT 90
[2023-07-07 06:27] LABS: Hematocrit 33.9 % (37.0-47.0); Hemoglobin 9.5 g/dL (12.0-15.0); Mean Corpuscular Hemoglobin 20.7 pg (26-34); Mean Corpuscular Volume 73.9 fl (80-100); Mean Platelet Volume 11.1 fl (7.4-10.4); Platelet Count Result 315 k/mm3 (150-375); Red Blood Count 4.59 M/mm3 (4.2-5.4); Red Cell Distribution Width 17.6 % (11.5-14.5); White Blood Count 4.1 K/mm3 (4.5-10.0)
[2023-07-07 06:38] LABS: Alanine Aminotransferase 18 U/L (6-35); Albumin Level 3.1 g/dL (3.5-5.1); Alkaline Phosphatase 108 U/L (38-126); Anion Gap 2 mmol/L (8-16); Aspartate Amino Transferase 21 U/L (14-36); Bilirubin,Total 0.3 mg/dL (0.2-1.3); Blood Urea Nitrogen 8 mg/dL (7-17); Calcium 8.1 mg/dL (8.4-10.2); Carbon Dioxide 29 mmol/L (22-30); Chloride 107 mmol/L (98-107); Estimated CRCL calculation 71 ml/min; Estimated Glomerular Filt Rate > 60; Glucose 97 mg/dL (65-110); Potassium 3.3 mmol/L (3.4-5.0); Sodium 138 mmol/L (137-145)
[2023-07-07] MEDS: ALBUTEROL SULFATE NEB 2.5 MG/3 ML INH INHALATION (07:30)
[2023-07-07 07:31] VITALS: PULSE 90; RESP 16
[2023-07-07] MEDS: FLUTICASONE/UMECLIDIN/VILANTER 200-62.5-25 MCG ELLIPTA 1 PUFF INHALATION (07:31)
[2023-07-07 07:36] VITALS: PULSE 90; RESP 16; O2SAT 92
[2023-07-07 07:43] VITALS: PULSE 92; RESP 16
[2023-07-07 08:00] VITALS: O2SAT 92
[2023-07-07] MEDS: VENLAFAXINE HCL XR 75 MG CAP.ER.24H 300 MG PO (09:03)
[2023-07-07] MEDS: ALPRAZolam (*CRX) 0.5 MG TABLET 1 MG PO ×2 (09:03→12:49)
[2023-07-07] MEDS: PANTOPRAZOLE 40 MG TABLET PO (09:04)
[2023-07-07] MEDS: DICLOFENAC SOD 75 MG TABLET.EC PO (09:04)
[2023-07-07] MEDS: TIZANIDINE HCL 2 MG TABLET PO ×2 (09:04→12:49)
[2023-07-07] MEDS: valACYclovir HCL 500 MG TABLET PO (09:04)
[2023-07-07] MEDS: DICYCLOMINE HCL 10 MG CAPSULE 20 MG PO (09:04)
[2023-07-07] MEDS: POTASSIUM CHLORIDE 20 MEQ PACKET (FOR LIQUID) 40 MEQ PO (09:14)
--- NOTE | 2023-07-07 11:21 | PM.DS ---
DS: Admitting Diagnosis Discharge Date 07/07/23 Admitting Diagnosis diverticulitis DS: Discharge Diagnosis Discharge Diagnosis (1) Sepsis: Code(s): A41.9 - Sepsis, unspecified organism Status: Acute (2) Diverticulitis large intestine: Qualifiers: Diverticulitis bleeding: with bleeding Diverticulitis complication: without perforation or abscess Qualified Code(s): K57.33 - Diverticulitis of large intestine without perforation or abscess with bleeding Code(s): K57.32 - Diverticulitis of large intestine without perforation or abscess without bleeding Status: Acute (3) Acute on chronic respiratory failure with hypoxia: Code(s): J96.21 - Acute and chronic respiratory failure with hypoxia Status: Acute (4) Left lower quadrant abdominal pain: Code(s): R10.32 - Left lower quadrant pain Status: Acute (5) COPD exacerbation: Code(s): J44.1 - Chronic obstructive pulmonary disease with (acute) exacerbation Status: Acute DS: Summary Hospital Course Hospital Course: this is a 63-year-old female with past medical history of COPD that uses 2 L of oxygen with activity at home the presents to the ED on 07/04/2023 due to left lower quadrant pain this been present for approximately 3 weeks. She was seen in the emergency department the day prior and was sent home on oral antibiotics only to return to the ED due to nausea, vomiting, pain, fever, chills weakness and poor appetite. CT abdomen pelvis revealed unchanged sigmoid diverticulitis without abscess or perforation. She was started on Zosyn and admitted to the hospital. Blood cultures have remained negative x4 days but will continue to monitor. Patient's abdominal pain improved with IV antibiotics and her diet was resumed. Patient tolerated the diet well. She did require 2 L of oxygen while in the hospital which is her home regimen. Advised patient to increase fiber in her diet. Time Spent with Patient Time attestation: Total time spent providing and/or coordinating discharge services: Exam Narrative: GENERAL: Comfortable, no acute distress HENMT: moist mucous membranes EYES: EOM intact b/l NECK: no lymphadenopathy RESPIRATORY: clear to auscultation CARDIO: RRR GI: soft, Mild left lower quadrant tenderness, bowel sounds present SKIN: no rashes EXTREMITIES: no edema, redness or tenderness DS: Data Data Completed and Pending Labs on day of discharge: Labs from last 24 hours 07/07/23 05:49 WBC 4.1 L RBC 4.59 Hgb 9.5 L Hct 33.9 L MCV 73.9 L MCH 20.7 L MCHC 28.0 L RDW 17.6 H Plt Count 315 MPV 11.1 H Sodium 138 Potassium 3.3 L Chloride 107 Carbon Dioxide 29 Anion Gap 2 L BUN 8 Creatinine 0.70 Estim Creat Clear Calc 71 Estimated GFR > 60 Glucose 97 Calcium 8.1 L Total Bilirubin 0.3 AST 21 ALT 18 Alkaline Phosphatase 108 Total Protein 6.0 L Albumin 3.1 L Preliminary micro results at discharge 07/05/23 14:44 Blood Culture - Preliminary Blood 07/05/23 14:34 Blood Culture - Preliminary Blood Discharge Plan Discharge Attending physician on discharge: Marcelino Prajapati Discharging Clinician: Irma Pérez Patient Disposition: Home, Self-Care Activity: as tolerated Diet: regular Discharge Instructions: Augmentin twice daily. Complete entire prescription. Tylenol for pain. Do not exceed more than 4 g daily. Increase daily activity in order to prevent recurrent diverticulitis/diverticulosis Take all medications as prescribed even if feeling better Wear a mask in public, and stay away from large crowds Diet: Recommend increasing fiber in the diet by eating more fruits and vegetables, whole grain food in beings. Would also recommend taking a fiber supplement such as Metamucil or fiber pills. If you should experience any chest pain, shortness of breath, temps >100.4 or any other worrisome symptoms please follow up with your
--- NOTE | 2023-07-07 13:58 | PCRCNOTE ---
Window of time for administration has passed. See next scheduled administration.
[2023-07-07 14:00] VITALS: BP 122/72; PULSE 84; RESP 18; TEMP 36.1; O2SAT 97
== END 2023-07-07 15:25 | disposition home or self-care (01) | DRG 377 ==
LOC: ANHED 20:11 → ANH3MEDSUR 20:33
PROVIDERS: Emergency Medicine; Nurse Practitioner Acute Care; Nurse Practitioner Family; Admitting Provider Internal Medicine; Emergency Provider Physician Assistant; PCP Family Medicine; Visit Provider Internal Medicine Critical Care Medicine
DX: K57.33 Diverticulitis of large intestine without perforation or abscess with bleeding (principal); A41.9 Sepsis, unspecified organism; J96.21 Acute and chronic respiratory failure with hypoxia; Z87.891 Personal history of nicotine dependence; J43.9 Emphysema, unspecified; E78.5 Hyperlipidemia, unspecified
CPT/HCPCS: 36415; 71045; 74177; 80053; 81001; 83605; 83690; 83735; 85025; 85027; 85055; 87040; 94640; 96365; 96366; 96372; 96375; 96376; 99285; A9270; G0378; J1170; J1650; J2405; J2543; J3010; J7030; Q9967

== ENCOUNTER 2023-10-15 16:46 | Emergency (ER) | payer MEDICARE, MEDICAID, SELFPAY ==
--- NOTE | ~2023-10-15 | CT_ITS ---
EXAMINATION: CT thoracic lumbar wo con DATE: 10/15/2023 19:00 INDICATION: pain . TECHNIQUE: Computed tomography (CT) of the thoracic and lumbar spine was performed without intravenou s contrast. Automated exposure control and iterative reconstruction technique were employed. The dose -length product was 1276.62 mGy-cm. COMPARISON: CT abdomen pelvis 07/04/2023 FINDINGS: THORACIC SPINE: Vertebral body alignment intact. Mild scoliosis. Vertebral body heights preserved. Multilevel degener ative disc disease with vacuum phenomenon at multiple levels. No traumatic malalignment or fracture. Visualized lung parenchyma is clear. Small hiatal hernia. Severe paraseptal emphysematous change. Sev ere left neural foraminal narrowing at T7-8 and T8-9. No severe central canal narrowing. LUMBAR SPINE: 5 nonrib-bearing lumbar-type vertebral bodies. Pedicles intact. Normal vertebral body alignment. Supe rior endplate deformity and mild height loss at L4, with involvement of the posterior cortex. Multile adalid degenerative disc disease, severe at L5-S1. Multilevel severe lower lumbar facet arthropathy. No severe central canal or neural foraminal narrowing. Diverticulosis. Partially visualized, likely simp le right renal cysts. IMPRESSION: Severe left neural foraminal narrowing at T7-8 and T8-9, on a degenerative basis. Chronic stable mild burst fracture deformity at L4. Reviewed, dictated and finalized at location [facility] [employer] IMPRESSION: Severe left neural foraminal narrowing at T7-8 and T8-9, on a degenerative basi s. Chronic stable mild burst fracture deformity at L4.
--- NOTE | ~2023-10-15 | CT_ITS ---
EXAMINATION: CT cervical spine wo con DATE: 10/15/2023 18:59 INDICATION: pain TECHNIQUE: Computed tomography (CT) of the cervical spine was performed without intravenous contrast. Automated exposure control and iterative reconstruction technique were employed. The dose-length pro duct was 410.75 mGy-cm. COMPARISON: None. FINDINGS: Vertebral Body Alignment: Intact. Reversed lordosis. Multilevel trace listheses, presumably on a dege nerative basis. Craniocervical and atlantoaxial alignment: Moderate degenerative change. Alignment intact. Osseous structures/fracture: No evidence of a lytic or blastic process in the visualized spine. No e vidence of acute fracture. Cervical soft tissues: The paraspinal soft tissues planes are maintained. Emphysematous change in the lung apices. Degenerative changes: Degenerative changes, without severe neural foraminal or central canal narrowin g. IMPRESSION: No acute fracture or traumatic malalignment in the cervical spine. Reviewed, dictated and finalized at location [facility] [employer]
[2023-10-15 17:17] VITALS: BP 141/98; PULSE 100; RESP 16; TEMP 36.3; O2SAT 99
[2023-10-15 17:27] VITALS: BP 149/97; PULSE 103; RESP 16; TEMP 36.6; O2SAT 95
--- NOTE | 2023-10-15 17:52 | ED.BACK ---
HPI - Back Pain/Injury General Chief Complaint: Back Pain/Injury Stated Complaint: chronic back pain Time Seen by Provider: 10/15/23 17:29 History of Present Illness HPI Narrative: Patient is a 63-year-old female with history of chronic back pain, COPD here with worsening back pain. She states that she has chronic back pain and follows with a pain specialist through [facility]. She has gotten spinal injections in the past, the last was given 2 and half to 3 months ago with no help of her pain. She states that over the last 6-8 weeks she has had significantly worsening of pain. The pain is located in her lower back, mid back, upper back, neck. Pain is worse with movement and does feel stiff. She denies any additional trauma. She does note MRIs in the distant past and has seen a neurosurgeon through [facility] as well who noted no immediate surgery was needed but would likely require surgery in the future. She notes that over the last 6-8 weeks she started having difficulty holding her urine, she notes that a couple of days ago she got out of her car and started urinating on herself as she walked into her apartment. She additionally notes that occasionally she feels diarrhea like stool come out of her rectum without realizing she has to go to the bathroom. Other new symptoms over the last 6-8 weeks include bilateral numbness in her upper extremities as well as some subjective weakness in her bilateral upper extremities. She has chronic aching pain in her bilateral lower extremities associated with her back pain. No numbness or weakness. She notes that yesterday around 4:30 p.m. the pain was finally enough to prompt her to contact her pain medicine specialist. The on-call doctors last night (Dr. Rosenberg and Dr. Waddell) recommended that she go to the [facility] emergency department get an MRI of her neck and back and to see a neurosurgeon for concerns of needing emergent surgery for spinal cord compression. She notes that she went to [facility] yesterday as advised and waited in the emergency department waiting room for approximately 3 hours and then went home because it seems too busy to wait any longer. Today she came to our emergency department. She has never been seen by any specialists in our system for her back pain. Related Data Home Medications Medication Instructions Recorded Confirmed albuterol sulfate 2.5 mg/3 mL 2.5 mg QID 07/04/23 07/04/23 (0.083 %) solution for nebulization albuterol sulfate 90 mcg/actuation 2 puff inhalation Q6H PRN Wheezing 07/04/23 07/04/23 aerosol inhaler alprazolam 1 mg tablet 1 mg PO TID 07/04/23 07/04/23 atorvastatin 10 mg tablet 10 mg PO QHS 07/04/23 07/04/23 diclofenac sodium 75 mg 75 mg PO BID 07/04/23 07/04/23 tablet,delayed release dicyclomine 20 mg tablet 20 mg PO BID 07/04/23 07/04/23 esomeprazole magnesium 40 mg 40 mg PO BID 07/04/23 07/04/23 capsule,delayed release fluticasone fur. 200 mcg-umeclid 1 inh inhalation DAILY 07/04/23 07/04/23 62.5 mcg-vilant 25 mcg inhalat.powder (Trelegy Ellipta) hydroxyzine HCl 25 mg tablet 25 mg PO DAILY PRN Anxiety 07/04/23 07/04/23 metoclopramide HCl 10 mg tablet 10 mg PO QID 07/04/23 07/04/23 ondansetron HCl 4 mg tablet 4 mg PO Q6H 07/04/23 07/04/23 tizanidine 2 mg tablet 2 mg PO QID 07/04/23 07/04/23 valacyclovir 500 mg tablet 500 mg PO DAILY 07/04/23 07/04/23 venlafaxine 150 mg 300 mg PO DAILY 07/04/23 07/04/23 capsule,extended release 24 hr Allergies Allergy/AdvReac Type Severity Reaction Status Date / Time codeine Allergy Unknown Swelling Verified 10/15/23 17:26 of Lip/Tongue/Throat Review of Systems Review of Systems: All systems reviewed & are unremarkable except as noted in HPI and below PMFSH Social History Social History Smoking status: Former smoker Alcohol intake: never Substance use: never Lack of Transportation: YES Lack of Food: Often True Julia
[2023-10-15] MEDS: ACETAMINOPHEN 500 MG TABLET 1000 MG PO (18:41)
[2023-10-15] MEDS: diazePAM (*CRX) 5 MG TABLET PO (18:41)
[2023-10-15 18:42] VITALS: BP 152/91; PULSE 92; RESP 16; O2SAT 99
[2023-10-15 18:50] LABS: Basophils Percent Auto 0.2 % (0.2-1.2); Hematocrit 40.5 % (37.0-47.0); Hemoglobin 11.6 g/dL (12.0-15.0); Immature Granulocyte Absolute 0.05 K/mm3 (0.00-0.031); Immature Granulocyte Percent A 0.5 % (0-0.5); Immature Platelet Fraction Pct 3.5 % (0.9-11.2); Lymphocytes Absolute Auto 1.15 K/mm3 (0.9-3.2); Lymphocytes Percent Auto 10.7 % (18.3-44.2); Mean Corpuscular HGB Conc 28.6 g/dl (32-36); Mean Corpuscular Hemoglobin 20.9 pg (26-34); Mean Corpuscular Volume 73.1 fl (80-100); Mean Platelet Volume 11.4 fl (7.4-10.4); Monocytes Absolute Auto 0.4 K/mm3 (0.1-0.6); Monocytes Percent Auto 4.1 % (2.6-8.5); Neutrophils Absolute Auto 9.1 K/mm3 (1.3-6.7); Neutrophils Percent Auto 84.5 % (45.5-73.1); Platelet Count Result 268 k/mm3 (150-375); Red Blood Count 5.54 M/mm3 (4.2-5.4); Red Cell Distribution Width 19.4 % (11.5-14.5); White Blood Count 10.8 K/mm3 (4.5-10.0)
[2023-10-15 18:57] LABS: INR 0.9; Partial Thromboplastin Time 21.8 SECONDS (22.3-36.8); Prothrombin Time 12.6 Seconds (11.1-14.7)
[2023-10-15 19:06] LABS: Alanine Aminotransferase 23 U/L (6-35); Albumin Level 4.2 g/dL (3.5-5.1); Alkaline Phosphatase 99 U/L (38-126); Anion Gap 10 mmol/L (8-16); Aspartate Amino Transferase 22 U/L (14-36); Bilirubin,Total 0.4 mg/dL (0.2-1.3); Blood Urea Nitrogen 15 mg/dL (7-17); Carbon Dioxide 24 mmol/L (22-30); Chloride 107 mmol/L (98-107); Estimated CRCL calculation 62 ml/min; Estimated Glomerular Filt Rate > 60; Glucose 91 mg/dL (65-110); Potassium 3.7 mmol/L (3.4-5.0); Sodium 141 mmol/L (137-145)
[2023-10-15 19:11] LABS: CRP < 0.5 mg/dL (<1.0)
--- NOTE | 2023-10-15 19:12 | PC.NURSE ---
Report given to Jud KIRBY, all questions answered
[2023-10-15 19:15] LABS: Hypochromasia 1+ (NORMAL); Platelet Estimate Adequate (Adequate); Schistocytes None Seen (NORMAL)
[2023-10-15 19:16] LABS: Anisocytosis 3+ (NORMAL); Microcytosis 1+ (NORMAL)
--- NOTE | 2023-10-15 19:20 | PC.NURSE ---
this rn assumed care of patient. this rn took patient care from ellis evans.
[2023-10-15 19:27] LABS: Erythrocyte Sedimentation Rate 5 mm/hr (0-20)
[2023-10-15] MEDS: ONDANSETRON INJ 4 MG/2 ML VIAL IV PUSH (20:53)
[2023-10-15] MEDS: HYDROmorphone HCL INJ (*CRX) 1 MG/ML SYR IV PUSH (20:53)
[2023-10-15 21:33] VITALS: BP 126/84; PULSE 97; RESP 17; TEMP 36.2; O2SAT 95
== END 2023-10-15 21:53 | disposition short-term general hospital (02) ==
PROVIDERS: Emergency Provider Student in an Organized Health Care Education/Training Program; PCP Family Medicine
DX: M54.50 Low back pain, unspecified (principal); M54.2 Cervicalgia; R32 Unspecified urinary incontinence; R15.9 Full incontinence of feces; J44.9 Chronic obstructive pulmonary disease, unspecified; Z87.891 Personal history of nicotine dependence; M79.605 Pain in left leg; M79.604 Pain in right leg
CPT/HCPCS: 36415; 72125; 72128; 72131; 80053; 85025; 85055; 85610; 85652; 85730; 86140; 96374; 96375; 99284; 99285; A9270; J1170; J2405

== ENCOUNTER 2024-01-28 18:38 | Emergency (ER) | payer MEDICARE, MEDICAID, SELFPAY ==
--- NOTE | 2024-01-28 18:39 | ED.GENADULT ---
HPI - General Adult General Chief complaint: Shortness of Breath/Dyspnea Stated complaint: Fatigue,Shortness of Breath,Cough Time Seen by Provider: 01/28/24 18:50 Source: patient, RN notes reviewed and old records reviewed Mode of arrival: ambulatory Limitations: no limitations History of Present Illness HPI narrative: 63-year-old female presents to the [facility] with significant shortness of breath, cough, fatigue. Reports symptoms started about a week ago when she called her pulmonary doctor and was prescribed doxycycline and prednisone. Patient states that the symptoms got worse 5 days ago but was hoping the prednisone and the doxycycline would start working. Patient finished the doxycycline and prednisone on Tuesday, 4 days ago. Patient states that she was told if those medications did not work that she should be going to the emergency room for further evaluation, so she came to the urgent care Lips and tongue were great of blue, finger tips were blue. Patient is talking 1 or 2 word sentences. Patient placed on oxygen, EKG done. Patient would prefer to go to [facility] for further evaluation Onset (ago): week(s) (2) Related Data Home Medications Medication Instructions Recorded Confirmed albuterol sulfate 2.5 mg/3 mL 2.5 mg QID 07/04/23 01/28/24 (0.083 %) solution for nebulization albuterol sulfate 90 mcg/actuation 2 puff inhalation Q6H PRN Wheezing 07/04/23 01/28/24 aerosol inhaler alprazolam 1 mg tablet 1 mg PO TID 07/04/23 01/28/24 atorvastatin 10 mg tablet 10 mg PO QHS 07/04/23 01/28/24 diclofenac sodium 75 mg 75 mg PO BID 07/04/23 01/28/24 tablet,delayed release dicyclomine 20 mg tablet 20 mg PO BID 07/04/23 01/28/24 esomeprazole magnesium 40 mg 40 mg PO BID 07/04/23 01/28/24 capsule,delayed release fluticasone fur. 200 mcg-umeclid 1 inh inhalation DAILY 07/04/23 01/28/24 62.5 mcg-vilant 25 mcg inhalat.powder (Trelegy Ellipta) hydroxyzine HCl 25 mg tablet 25 mg PO DAILY PRN Anxiety 07/04/23 01/28/24 metoclopramide HCl 10 mg tablet 10 mg PO QID 07/04/23 01/28/24 ondansetron HCl 4 mg tablet 4 mg PO Q6H 07/04/23 01/28/24 tizanidine 2 mg tablet 2 mg PO QID 07/04/23 01/28/24 valacyclovir 500 mg tablet 500 mg PO DAILY 07/04/23 01/28/24 venlafaxine 150 mg 300 mg PO DAILY 07/04/23 01/28/24 capsule,extended release 24 hr Allergies Allergy/AdvReac Type Severity Reaction Status Date / Time codeine Allergy Severe Swelling Verified 01/28/24 18:41 of Lip/Tongue/Throat Review of Systems Review of Systems: All systems reviewed & are unremarkable except as noted in HPI and below Constitutional: Constitutional: Reports no additional constitutional complaints Eyes: Eyes: Reports no additional eye complaints ENT: Reports system reviewed and no additional complaints, except as documented Cardiovascular: Cardiovascular: Reports as per HPI, Reports chest pain, Reports rapid heart rate and Reports dyspnea Respiratory: Respiratory: Reports as per HPI, Reports chest congestion, Reports cough and Reports dyspnea Gastrointestinal: Gastrointestinal: Reports no additional gastrointestinal complaints, Denies abdominal pain, Denies nausea and Denies vomiting Musculoskeletal: Musculoskeletal: Reports no additional musculoskeletal complaints Integumentary/Breasts: Skin/Breast: Reports system reviewed and no additional complaints, except as docu Neurologic: Reports system reviewed and no additional complaints, except as documented Psychiatric: Psychiatric: Reports no additional psychiatric complaints Allergic/Immunologic: Allergic/Immunologic: Reports no additional allergic/immunologic complaints [facility] Past Medical History Medical History Acute on chronic respiratory failure with hypoxia COPD exacerbation Social History Social History Smoking status: Former smoker Alcohol intake: never
[2024-01-28 18:48] VITALS: BP 137/81; PULSE 132; RESP 24; TEMP 36.3; O2SAT 91
--- NOTE | 2024-01-28 18:48 | ECG_ITS ---
SEE SCANNED COPY FOR CONFIRMED REPORT MTDD
[2024-01-28 18:53] VITALS: O2SAT 97
[2024-01-28 19:10] VITALS: O2SAT 97
== END 2024-01-28 19:10 | disposition short-term general hospital (02) ==
PROVIDERS: Emergency Provider Nurse Practitioner; PCP Family Medicine
DX: J44.1 Chronic obstructive pulmonary disease with (acute) exacerbation (principal); R09.02 Hypoxemia; Z87.891 Personal history of nicotine dependence
CPT/HCPCS: 93005; 94640; 99215; G0463

== ENCOUNTER 2024-11-23 15:00 | Emergency (ER) | payer MEDICARE, MEDICAID, SELFPAY ==
--- OUTSIDE RECORDS SUMMARY | 2024-11-23 15:03 | XMS_ITS | Patient Health Summary ---
Author Organization [facility] Social [employer] Step Address [address] [place] [address] Care Team Providers Care Sales Porter Name Role Phone Maya Mcclain MD Primary Care Provider Note from [facility],non-owned Affiliates and Associated Physician Practices is amultiple site organization consisting of ambulatory clinics and hospital sitesin [place] and [place]. This disclosure is being madepursuant to the Care Everywhere program and may not contain all information available regarding this patient. Last updated 18.[facility] Allergies * Codeine(Anaphylaxis,Angioedema,Urticaria,Swelling,Unknown) -High Criticality Medications * Be aware that medications may not be up to date on this document. Alwaysverify current medications with the patient. * Nebulizers MISC * prednisoLONE acetate (PRED FORTE) 1 % ophthalmic suspension(Started 10/24/2020) Instill 1 (one) drop into right eye 4 times daily * cyclopentolate (CYCLOGYL) 1 % ophthalmic solution(Started 10/24/2020) Instill 1 (one) drop into right eye 2 times daily * albuterol HFA (PROVENTIL; VENTOLIN; PROAIR) 108 (90 Base) MCG/ACT inhaler (Started 06/22/2021) Inhale 2 puffs by mouth every 4 hours as needed * ALPRAZolam (XANAX) 1 MG tablet(Started 03/16/2022) Take 1 mg by mouth 3 times daily * ALPRAZolam, disintegrating, (NIRAVAM) 2 MG tablet 1 tablet on the tongue and allow to dissolve * ARIPiprazole (ABILIFY) 5 MG tablet 1 tablet * aspirin EC (ECOTRIN) 81 MG tablet(Started 02/11/2022) Take 1 tablet by mouth once daily * budesonide-formoterol (SYMBICORT) 160-4.5 MCG/ACT inhaler 2 puffs * vitamin D3 (CHOLECALCIFEROL) 125 MCG (5000 UT) capsule(Started 01/09/2022) Take 5,000 Units by mouth once daily * cloNIDine (CATAPRES) 0.2 MG/24HR patch(Started 09/02/2021) Apply 1 patch to skin * clotrimazole-betamethasone (LOTRISONE) 1-0.05 % cream(Started 03/10/2022) APPLY TOPICALLY TO THE AFFECTED AND SURROUNDING AREAS TWICE DAILY IN THE MORNING AND IN THE EVENINGFOR 2 WEEKS * dilTIAZem ER 24hr (TIAZAC) 120 MG capsule(Started 12/23/2021) TAKE 1 CAPSULE(120 MG) BY MOUTH DAILY * Docusate Sodium (DSS) 100 MG(Started 04/12/2022) Take 100 mg by mouth 2 times daily * Cnjvprmhmmw-Rvkmxdmuh-Coygme (TRELEGY ELLIPTA) 100-62.5-25 MCG/INH Inhale 1 puff by mouth once daily * gabapentin (NEURONTIN) 100 MG capsule(Started 03/16/2022) TAKE 1 CAPSULE(100 MG) BY MOUTH TWICE DAILY * hydrOXYzine HCl (ATARAX) 25 MG tablet(Started 10/06/2021) TAKE 1 TABLET BY MOUTH EVERY EVENING NEEDED FOR INSOMINA * ibuprofen (MOTRIN) 600 MG tablet Take 600 mg by mouth 4 times daily * albuterol-ipratropium (DUO-NEB) 0.5-2.5 (3) MG/3ML nebulizer solution Inhale 3 mL by mouth every 6 hours as needed * ondansetron, disintegrating, (ZOFRAN ODT) 4 MG tablet(Started 09/11/2020) * ondansetron (ZOFRAN) 4 MG tablet(Started 04/12/2022) Take 4 mg by mouth every 6 hours * sucralfate (CARAFATE) 1 GM tablet Take 1 g by mouth 4 times daily * esomeprazole (NEXIUM) 40 MG capsule Take 40 mg by mouth 2 times daily * venlafaxine XR 24hr (EFFEXOR XR) 150 MG capsule Take 300 mg by mouth once daily * guaiFENesin ER 12hr (MUCINEX) 600 MG tablet Take 600 mg by mouth every 12 hours Active Problems No known active problems Social History Tobacco Use Types Packs/Day Years Used Date Smoking Tobacco: Former Cigarettes Q uit: 10/24/2009 Smokeless Tobacco: Never Alcohol Use Standard Drinks/Week Comments Never 0 (1 standard drink = 0.6 oz pur e alcohol) Sex and Gender Information Value Date Recorded Sex Assigned at Not on file Gender Identity Not on file Sexual Orientation Not on file Last Filed Vital Signs Vital Sign Reading Time Taken Comments Blood Pressure 114/60 07/09/2014 2:52 PM CDT Pulse - - Temperature - - Respiratory Rate - - Oxygen Saturation - - Inhaled Oxygen Concentration - - Weight 90.7 kg (200 lb) 04/14/2022 9:49 AM CDT Height 167.6 cm (5' 6 ) 04/14/2022 9:49 AM CDT Body Mass Index 32.28 04/14/2022 9:49 AM CDT Procedures * DERMATOPATHOLOGY(Performed 10/14/2023) Performed for Dermatitis, unspecified * ESOPHAGUS/GASTROESOPHAGEAL REFLUX TEST(Performed 04/14/2022) Performed for Dysphagia, unspecified type, Gastroesophageal reflux disease, unspecified whether esophagitis present, Epigastric pain * GASTRIC MOTILITY STUDY(Performed 04/14/2022) Performed for Dysphagia, unspecified type, Gastroesophageal reflux disease, unspecified whether esophagitis present, Epigastric pain * CULTURE URINE COMPREHENSIVE(Performed 07/09/2014) * URINALYSIS - POINT OF CARE (AMB) [facility](Performed 06/19/2014) * CULTURE URINE COMPREHENSIVE(Performed 06/19/2014) * XR SHOULDER RIGHT 2VW OR MORE(Performed 11/12/2012) Results * DERMATOPATHOLOGY (10/14/2023 3:33 AM BLUE PRINT CONTROL CLERK) Case Report Dermatopathology Report Case: [id number] Authorizing Provider: Ketan Sheppard MD Collected: 10/14/2023 03:33 AM Ordering Location: [facility] DermPath Lab Received: 10/17/2023 02:24 PM Pathologist: Ruby Licona MD Specimen: Skin, left buttock 4:27 PM BLUE PRINT CONTROL CLERK DERMATOPATHOLOGY LABORATORY Final Diagnosis Specimen A. SKIN, left buttock: EPIDERMAL NECROSIS SUGGESTIVE OF EXCORIATION (L98.499) (see microscopic description) 4 4:27 PM [facility] DERMATOPATHOLOGY LABORATORY Clinical History Atopic dermatitis vs contact dermatitis other vs scabies 4 4:27 PM [facility] DERMATOPATHOLOGY LABORATORY Gross Description Specimen A: Received is one formalin filled container labeled with the patient's name and designated left buttock. The specimen consists of a punch biopsy measuring 4x4x4 mm, bisected. Jar 0. 4 4:27 PM [facility] DERMATOPATHOLOGY LABORATORY Microscopic Description Specimen A. SKIN, left buttock: The epidermis is focally necrotic and covered with a scale-crust. There is fibrin at the base. Additional deeper sections were obtained and reviewed. Grocott's methenamine silver (GMS) stain is negative for fungal elements in the sections examined. 4:27 PM [facility] DERMATOPATHOLOGY LABORATORY Disclaimer An external and internal positive and negative controls are appropriate for the histochemical, immunohistochemical and immunofluorescence stain(s) in this case (if any), except where stated explicitly. The performance characteristics of the stain(s) cited in this report were developed and its performance characteristic determined by the Dermatopathology Laboratory at [facility], directed by Dr. Jaylan Cunningham. These tests need not be, and therefore are not, approved by the [place] Food and Drug Administration. The tests are used for clinical purposes. Billing Codes Specimen Charges Stain Charges 23640 1 02286 1 4 4:27 PM [facility] DERMATOPATHOLOGY LABORATORY Embedded Images 4 4:27 PM [facility] DERMATOPATHOLOGY LABORATORY Pathology/Cytolo gy TISSUE SPECIMEN FROM SKIN / Unknown 10/14/2023 3:33 AM BLUE PRINT CONTROL CLERK 10/17/2023 2:24 PM BLUE PRINT CONTROL CLERK Ketan Sheppard MD LAB - PATHOLOGY/CYTO LOGY ORDERABLES DERMATOPATHOLOGY LABORATORY [facility] - Department of Dermatology [address], [address] [phone] * CULTURE URINE COMPREHENSIVE (07/09/2014) Only the most recent of2 resultswithin the time period is included. Culture SEE NOTE [facility] ([facility]) Comment: CULTURE, URINE, SPECIAL MICRO NUMBER: [id number] TEST STATUS: FINAL SPECIMEN SOURCE: URINE SPECIMEN QUALITY: ADEQUATE RESULT: No Growth REPORT COMMENT: PREFERRED LAB:->[facility] Test Performed at: [facility] [id number] SALMA CAMPBELL MD Urine specimen (specimen) 07/09/2014 07/10/2014 3:51 AM CDT Narrative [facility] ([facility]) - 07/12/2014 8:00 AM CDT Preferred Lab:->[facility] Victor Hugo Li MD LAB - MICROBIOLOGY O RDERABLES Performing Organization Address City/[facility]/ZIP Co de Phone Number [facility] ([facility]) * URINALYSIS - POINT OF CARE (AMB) [facility] (06/19/2014) Glucose UA neg [facility] Bilirubin UA POCT neg [facility] Ketones UA POCT neg [facility] Specific [place] UA 1.010 [facility] Blood Urine POCT neg [facility] pH UA 5.0 [facility] Protein UA neg [facility] Urobilinogen UA neg [facility] Nitrite UA neg [facility] WBC UA neg [facility] Urine specimen (specimen) 06/19/2014 Victor Hugo Li MD LAB - POINT OF CARE ORDERABLES Performing Organization Address [facility] Co de Phone Number [facility] * XR SHOULDER RIGHT 2VW OR MORE (11/12/2012 1:02 PM BLUE PRINT CONTROL CLERK) Anatomical Region Laterality Modality Upper Extremity Other Impressions 11/12/2012 4:01 PM BLUE PRINT CONTROL CLERK Impression: No radiographic evidence of bone or joint disease. This report has been dictated by Cornelius Grace M.D. (Resident). I, Dr. JACKIE MEDINA M.D. have personally reviewed and interpreted this examination/study. This report was electronically signed by JACKIE MEDINA M.D. on 11/12/2012 4:01 PM . Narrative 11/12/2012 4:01 PM BLUE PRINT CONTROL CLERK Exam: Right shoulder, 3 views Date: 11/12/2012 History: Pain, no injury Comparison: None available Findings: The osseous structures are intact and well aligned. No focal joint space narrowing. No focal soft tissue swelling or focal bone demineralization. Procedure Note Jackie Medina MD - 12/11/2017 Exam: Right shoulder, 3 views Date: 11/12/2012 History: Pain, no injury Comparison: None available Findings: The osseous structures are intact and well aligned. No focal joint spacenarrowing. No focal soft tissue swelling or focal bone demineralization. IMPRESSION Impression: No radiographic evidence of bone or joint disease. This report has been dictated by Cornelius Grace M.D. (Resident). I, Dr. JACKIE MEDINA M.D. have personally reviewed and interpreted thisexamination/study. This report was electronically signed by JACKIE MEDINA M.D. on 11/12/20124:01 PM . Mahogany Gibson MD [facility] Care Teams Sales Porter Relationship Specialty Start Date End Date Maya Mcclain MD [address] [place] [phone] PCP - General 10/31/20
--- OUTSIDE RECORDS SUMMARY | 2024-11-23 15:03 | XMS_ITS | Patient Health Record ---
Author Organization [facility] Address [address] [place] [address] Care Team Providers Care Civil Structural Engineer Name Role Phone Diane Burgess Primary Care Provider Nuvia Ireland [phone] Allergies Allergen (clinical drug ingredient) Drug/Non Drug Allergy documented on EMR Reaction Allergy Type Onset Date Status codeine Codeine anaphylaxis Drug Allergy Activ e Reason For Referral No Information Medications Medication SIG (Take, Route, Frequency, Duration) Notes Start Date End Date Status Dupixent 300 MG/2ML as directed Subcutan eous every other week Active Venlafaxine HCl ER 75 MG 1 capsule with food Orally Once a day for 30 days 11/08/2024 Active ALPRAZolam 1 MG 1 tablet Orally four times a day for 7 days 11/09/2024 Active Metoprolol Succinate 50 MG 1 capsule Ora lly Once a day Active oxyCODONE HCl ER 15 MG 1 tablet as neede d Orally three times a day PRN Active Mirtazapine 15 MG 0.5 tablet for 7.5 m g Orally Once a day for 30 days 11/08/2024 Active valACYclovir HCl 500 MG 1 tablet Orally Once a day Active Venlafaxine HCl ER 37.5 MG 1 capsule wit h food Orally Once a day Active ALPRAZolam 1 MG 1 tablet Orally four times a day for 30 days 11/13/2024 Active Albuterol Sulfate (2.5 MG/3ML) 0.083% 3 mL as needed Inhalation four times a day Active OneTouch Verio Activ e Trelegy Ellipta 200-62.5-25 MCG/ACT 1 puff Inhalation Once a day Active Social History Tobacco Use: Social History Observation Description Date Details (start date - stop date) Former Smoker NA - NA Tobacco Control (Standard) Question Answer Notes Tobacco use: Former smoker Problems Problem Type SNOMED Code ICD Code Onset Dates Problem Status W/U Status Risk Notes Problem Generalized anxiety disorder (13427424) RUSS (generalized anxiety disorder) (F41.1) 025 Active confirmed consideration to separate panic disorder Problem Insomnia due to mental disorder (29791546) Insomnia due to mental disorder (F51.05) 025 Active confirmed Problem Major depressive disorder (477411252) MDD (major depressive disorder) (F32.9) 025 Active confirmed Problem Nondependent cocaine abuse in remission (050475870) Cocaine use disorder, mild, in sustained remission (F14.11) 025 Active confirmed last use age 46 Encounters Encounter Location Date Provider Diagnosis [address] [address] 11/08/2024 Diane Burgess MDD (major depressive disorder) F32.9 ; RUSS (generalized anxiety disorder) F41.1 ; Insomnia due to mental disorder F51.05 and Cocaine use disorder, mild, in sustained remission F14.11 [address] [place] [address] 11/09/2024 Diane Burgess RUSS (generalized anxiety disorder) F41.1 [address] [place] [address] 11/09/2024 Nuvia Ireland [address] [place] [address] 11/09/2024 Diane Burgess Assessments Encounter Date Diagnosis (ICD Code) Assessment Notes Treatment Notes Treatment Clinical Notes Section Notes 11/08/2024 RUSS (generalized anxiety disorder) (ICD-10 - F41.1) consideration to separate panic disorder 11/08/2024 MDD (major depressive disorder) (ICD-10 - F32.9) 11/09/2024 RUSS (generalized anxiety disorder) (ICD-10 - F41.1) consideration to separate panic disorder 11/08/2024 Insomnia due to mental disorder (ICD-10 - F51.05) Today's visit: Patient is a 64-year-old female who presents for a psychiatric evaluation over Zoom and is located in [place], caregiver present in room. PHQ-9 score of 21, RUSS-7 score of 18, MDQ with 7 yes. History of depression, anxiety, panic disorder and cocaine use disorder in sustained remission presenting with worsening depression and anxiety symptoms in the setting of abrupt discontinuation of Effexor. Patient was previously on Effexor 300mg daily with good effect but stopped taking it when forgetting to have it refilled with new provider. Will increase Effexor to 75 mg and recommend f/u in 6 weeks. Will also start mirtazapine 7.5mg qhs for insomnia - off label from FDA use and this was discussed with pt. Continue alprazolam 1mg qid for anxiety, has been taking for 30+ years - has formed dependence and would need a slower taper if decreasing - will discuss further in upcoming appts. No acute safety concerns the time of this appt, he is agreeable to treatment plan and was provided an opportunity to ask questions. May self-administer medications or be administered own oral medications per [facility] protocols. Provided informed consent with understanding of side effects, adverse effects, risks and benefits as well as alternative treatments as previously discussed and with the above recommended medications & other aspects of the treatment program. Agrees to return sooner if symptoms worsen or suicidal or homicidal ideations occur. 11/08/2024 Cocaine use disorder, mild, in sustained remission (ICD-10 - F14.11) last use age 46 Plan Of Treatment No Information Insurance Providers Payer Name Payer Address Payer Phone Subscriber Number Group Number Insured Name Patient Relationship to Insured Coverage Start Date Coverage End Date MEDICAID [address] [place] [phone] [id number] Dipti Luna Self - patient is the insured 5 [employer] [address] [place] [address] [id number] Dipti Luna Self - patient is the insured Medical (General) History Medical History History ICD Code COPD Lupus Chronic pain Diverticulitis Surgical History Surgery Date(Month/Year) tubal ligation oopherectomy tonsillectomy hysterecomy Hospitalization History Reason Date(Month/Year) [facility] 5x for psych iatric inpatient for anxiety one time I had a nervous break down , last time in her 30s Psychiatric inpatient at [facility] for aggravation/HI, was there for a week age 46 Multiple for medical
--- OUTSIDE RECORDS SUMMARY | 2024-11-23 15:03 | XMS_ITS ---
Author Organization [facility] Address [address] [place] [address] Care Team Providers Care Product Support Manager Name Role Phone Diane Burgess Primary Care Provider [phone] REASON FOR VISIT Alprazolam Medications Medication SIG (Take, Route, Fr equency, Duration) Notes Start Date End Date Status ALPRAZolam 1 MG 1 tablet Orally four times a day for 7 days 11/09/2024 Active ALPRAZolam 1 MG 1 tablet Orally four times a day for 30 days 11/13/2024 Active Encounters Encounter Location Date Provider Diagnosis [address] [place] [address] 11/09/2024 Diane Burgess RUSS (generalized anxiety disorder) F41.1 Assessments Encounter Date Diagnosis (ICD Code) Assessment Notes Treatment Notes Treatment Clinical Notes Section Notes 11/09/2024 RUSS (generalized anxiety disorder) (ICD-10 - F41.1) consideration to separate panic disorder Plan Of Treatment Medication Medication Name Sig Start Date Stop Date Notes ALPRAZolam 1 MG 1 tablet Orally four times a day for 7 days 11/09/2024 ALPRAZolam 1 MG 1 tablet Orally four times a day for 30 days 11/13/2024 Progress Notes * Dipti BRIDGESDOB:1960 (64 yo F)Acc No.[id number]:11/09/2024 Patient: Dipti GLEZ :1960 A ge:64 Y S ex:Female Address:[address] [place] [address], [place], [address] * Refills Refill ALPRAZolam Tablet, 1 MG, Orally, 28 Tablet, 1 tablet, four times a day, 7 days, Refills=0 Start ALPRAZolam Tablet, 1 MG, Orally, 120 Tablet, 1 tablet, four times a day, 30 days, Refills=0 * true * Date: Generated for Betzaida alicea/John/Heydiitting on: 0 11/23/2024 03:03 PM CDT
--- OUTSIDE RECORDS SUMMARY | 2024-11-23 15:03 | XMS_ITS ---
Author Organization [facility] Address [address] [place] [address] Care Team Providers Care Patcher Name Role Phone Diane Burgess Primary Care Provider Encounters Encounter Location Date Provider Diagnosis [address] [place] [address] 11/09/2024 Diane Burgess Plan Of Treatment No Information Progress Notes * Dipti LUNADOB:1960 (64 yo F)Acc No.[id number]:11/09/2024 Patient: Dipti GLEZ :1960 A ge:64 Y S ex:Female Address:[address] [place], [address] * true * Date: Generated for Printi ng/Faxing/eTransmitting on: 0 11/23/2024 03:03 PM CDT
--- OUTSIDE RECORDS SUMMARY | 2024-11-23 15:03 | XMS_ITS | Referral Summary ---
Author Organization [facility] [employer] Address [address] [facility] [place] [address] Care Team Providers Care Patrol Guard Name Role Phone Maya Mcclain MD Primary Care Provider [phone] Source Comments [facility] [employer],non-owned Affiliates and Associated Physician Practices is amultiple site organization consisting of ambulatory clinics and hospital sitesin [place], [place], [place] and [place]. This disclosure is being madepursuant to the Care Everywhere program and may not contain all information available regarding this patient. Last updated 18.[employer] Allergies Active Allergy Reactions Criticality Noted Date Comments Codeine Anaphylaxis,Angioede ma,Urtica liz,Swelling,Unknown High 11/12/2012 throat closes Medications * Be aware that medications may not be up to date on this document. Alwaysverify current medications with the patient. Medication Sig Dispensed Refills Start Date End Date Status Nebulizers MISC Active prednisoLONE acetate (PRED FORTE) 1 % ophthalmic suspension Instill 1 (one) drop into right eye 4 times daily 15 mL 10/24/2020 Active Additional Information Patient not taking.Reported on 04/14/2022 cyclopentolate (CYCLOGYL) 1 % ophthalmic solution Instill 1 (one) drop into right eye 2 times daily 5 mL 10/24/2020 Active Additional Information Patient not taking.Reported on 04/14/2022 albuterol HFA (PROVENTIL; VENTOLIN; PROAIR) 108 (90 Base) MCG/ACT inhaler Inhale 2 puffs by mouth every 4 hours as needed 06/22/2021 Active ALPRAZolam (XANAX) 1 MG tablet Take 1 mg by mouth 3 times daily 03/16/2022 Active ALPRAZolam, disintegrating, (NIRAVAM) 2 MG tablet 1 tablet on the tongue and allow to dissolve Active ARIPiprazole (ABILIFY) 5 MG tablet 1 tablet Active aspirin EC (ECOTRIN) 81 MG tablet Take 1 tablet by mouth once daily 02/11/2022 Active budesonide-formotero l (SYMBICORT) 160-4.5 MCG/ACT inhaler 2 puffs Active vitamin D3 (CHOLECALCIFEROL) 125 MCG (5000 UT) capsule Take 5,000 Units by mouth once daily 01/09/2022 Active cloNIDine (CATAPRES) 0.2 MG/24HR patch Apply 1 patch to skin 09/02/2021 Active clotrimazole-betamet hasone (LOTRISONE) 1-0.05 % cream APPLY TOPICALLY TO THE AFFECTED AND SURROUNDING AREAS TWICE DAILY IN THE MORNING AND IN THE EVENING FOR 2 WEEKS 03/10/2022 Active dilTIAZem ER 24hr (TIAZAC) 120 MG capsule TAKE 1 CAPSULE(120 MG) BY MOUTH DAILY 12/23/2021 Active Docusate Sodium (DSS) 100 MG Take 100 mg by mouth 2 times daily 04/12/2022 Active Fluticasone-Umeclidi n-Vilant (TRELEGY ELLIPTA) 100-62.5-25 MCG/INH Inhale 1 puff by mouth once daily Active gabapentin (NEURONTIN) 100 MG capsule TAKE 1 CAPSULE(100 MG) BY MOUTH TWICE DAILY 03/16/2022 Active hydrOXYzine HCl (ATARAX) 25 MG tablet TAKE 1 TABLET BY MOUTH EVERY EVENING NEEDED FOR INSOMINA 10/06/2021 Active ibuprofen (MOTRIN) 600 MG tablet Take 600 mg by mouth 4 times daily Active albuterol-ipratropiu m (DUO-NEB) 0.5-2.5 (3) MG/3ML nebulizer solution Inhale 3 mL by mouth every 6 hours as needed Active ondansetron, disintegrating, (ZOFRAN ODT) 4 MG tablet 09/11/2020 Active ondansetron (ZOFRAN) 4 MG tablet Take 4 mg by mouth every 6 hours 04/12/2022 Active sucralfate (CARAFATE) 1 GM tablet Take 1 g by mouth 4 times daily Active esomeprazole (NEXIUM) 40 MG capsule Take 40 mg by mouth 2 times daily Active venlafaxine XR 24hr (EFFEXOR XR) 150 MG capsule Take 300 mg by mouth once daily Active guaiFENesin ER 12hr (MUCINEX) 600 MG tablet Take 600 mg by mouth every 12 hours Active Active Problems No known active problems Social [...] Mass Index 32.28 04/14/2022 9:49 AM CDT Plan of Treatment Not on file Care Teams Patrol Guard Relationship Specialty Start Date End Date Maya Mcclain MD [address] [place] [phone] PCP - General 10/31/20
[2024-11-23 15:04] VITALS: BP 154/105; PULSE 94; RESP 25; TEMP 36.3; O2SAT 95
--- OUTSIDE RECORDS SUMMARY | 2024-11-23 15:04 | XMS_ITS | Encounter Summary ---
Author Organization [facility] Address [address] [facility] [place] [address] Care Team Providers Care Arcade Game Technician Name Role Phone Maya Mcclain MD Primary Care Provider [phone] Encounter Details Date Type Department Care Team (Late st Contact Info) Description 10/14/2023 Lab Requisition [facility] - DermPath Lab [address] [facility] [place] [address] Ketan Sheppard MD [facility] DERMATOLOGY [address] [place] [phone] Dermatitis, unspecified Social History Tobacco Use Types Packs/Day Years Used Date Smoking Tobacco: Former Cigarettes Q uit: 10/24/2009 Smokeless Tobacco: Never Alcohol Use Standard Drinks/Week Comments Never 0 (1 standard drink = 0.6 oz pur e alcohol) Sex and Gender Information Value Date Recorded Sex Assigned at Not on file Gender Identity Not on file Sexual Orientation Not on file documented as of this encounter Plan of Treatment Not on file documented as of this encounter Procedures Procedure Name Priority Date/Time Associated Diagnosis Comments DERMATOPATHOLOGY Routine 10/14/2023 3:33 AM MANAGER PHYSICAL Dermatitis, unspecified documented in this encounter Results * DERMATOPATHOLOGY (10/14/2023 3:33 AM MANAGER PHYSICAL) Case Report Dermatopathology Report Case: [id number] Authorizing Provider: Ketan Sheppard MD Collected: 10/14/2023 03:33 AM Ordering Location: [facility] DermPath Lab Received: 10/17/2023 02:24 PM Pathologist: Ruby Licona MD Specimen: Skin, left buttock 4:27 PM [facility] DERMATOPATHOLOGY [facility]ORATORY Final Diagnosis Specimen A. SKIN, left buttock: EPIDERMAL NECROSIS SUGGESTIVE OF EXCORIATION (L98.499) (see microscopic description) 4 4:27 PM [facility] DERMATOPATHOLOGY [facility]ORAT[facility] Clinical History Atopic dermatitis vs contact dermatitis other vs scabies 4:27 PM [facility] DERMAT[facility] Gross Description Specimen A: Received is one formalin filled container labeled with the patient's name and designated left buttock. The specimen consists of a punch biopsy measuring 4x4x4 mm, bisected. Jar 0. 4:27 PM [facility] DERMATOPATHOLOGY [facility] Microscopic Description Specimen A. SKIN, left buttock: The epidermis is focally necrotic and covered with a scale-crust. There is fibrin at the base. Additional deeper sections were obtained and reviewed. Grocott's methenamine silver (GMS) stain is negative for fungal elements in the sections examined. 4:27 PM [facility] DERMATOPATHOLOGY [facility]ORATORY Disclaimer An external and internal positive and negative controls are appropriate for the histochemical, immunohistochemical and immunofluorescence stain(s) in this case (if any), except where stated explicitly. The performance characteristics of the stain(s) cited in this report were developed and its performance characteristic determined by the Dermatopathology Laboratory at [facility], directed by Dr. Jaylan Cunningham. These tests need not be, and therefore are not, approved by the [place] Food and Drug Administration. The tests are used for clinical purposes. Billing Codes Specimen Charges Stain Charges 95893 1 65485 1 4 4:27 PM [facility] DERMATOP[facility] Embedded Images 4 4:27 PM [facility]MAT[facility] Pathology/Cytolo gy TISSUE SPECIMEN FROM SKIN / Unknown 10/14/2023 3:33 AM MANAGER PHYSICAL 10/17/2023 2:24 PM MANAGER PHYSICAL Ketan Sheppard MD LAB - PATHOLOGY/CYTO [facility] DERMATOPATHOLOGY LABORATORY [facility] - Department of Dermatology [address] [phone] documented in this encounter Visit Diagnoses Diagnosis Dermatitis, unspecified documented in this encounter Care Teams Arcade Game Technician Relationship Specialty Start Date End Date Maya Mcclain MD [address] [place] [address] [phone] PCP - General 10/31/20 documented as of this encounter
--- OUTSIDE RECORDS SUMMARY | 2024-11-23 15:04 | XMS_ITS | Clinical Summary ---
Author Organization [facility] Address [address] [facility] [place] [address] Care Team Providers Care State'S Attorney Name Role Phone Maya Mcclain MD Primary Care Provider [phone] Source Comments [facility],non-owned Affiliates and Associated Physician Practices is amultiple site organization consisting of ambulatory clinics and hospital sitesin [place], [place], [place] and [place]. This disclosure is being madepursuant to the Care Everywhere program and may not contain all information available regarding this patient. Last updated 18.[facility] Allergies Active Allergy Reactions Criticality Noted Date [...] Active Active Problems No known active problems Family History Medical History Relation Name Comments Cataract Brother Glaucoma Mother Relation Name Status Comments Brother Mother Social History Tobacco Use Types Packs/Day Years [...] 04/14/2022 9:49 AM CDT Plan of Treatment Health Maintenance Due Date Last Done Comments BONE DENSITY TESTING 1960 COLOGUARD (AGES 45-75) - COLON CA SCREENING 1960 COLON MONITORING 1960 COLONOSCOPY - COLON CA SCREENING 1960 CT COLONOGRAPHY - COLON CA SCREENING 1960 Colorectal Cancer Screening 1960 FIT - COLON CA SCREENING 1960 FLEX SIG - COLON CA SCREENING 1960 LIPID TESTING 1960 HEPATITIS C SCREENING 06/24/1976 DTAP/TDAP/TD VACCINES (1 - Tdap) 1977 PNEUMOCOCCAL VACCINE 50+ (1 of 1 - PCV) 2008 ZOSTER VACCINE (1 of 2) 2008 MAMMOGRAM 02/24/2024 02/23/2022 COVID-19 VACCINE (3 - 2023- season) 2024 07/31/2021, 07/03/2021 INFLUENZA VACCINE (#1) 2024 , 07/08/2020, 06/12/2020, Additional history exists DEPRESSION SCREENING 09/12/2024 MEDICARE AWV CALENDAR YEAR 2024 Respiratory Syncytial Virus (RSV) Vaccine Pt: or over 60 yrs (1 - 1-dose 75+ series) 2033 HEPATITIS B VACCINE Aged Out No longe r eligible based on patient's age to complete this topic HIB VACCINE Aged Out No longer eligi ble based on patient's age to complete this topic HPV VACCINE Aged Out No longer eligi ble based on patient's age to complete this topic MENINGOCOCCAL (Group B) VACCINE SHARED DECISION-MAKING Aged Out No longer eligible based on patient's age to complete this topic MENINGOCOCCAL GROUPS A/C/Y/W VACCINE Aged Out No longer eligible based on patient's age to complete this topic Care Teams State'S Attorney Relationship Specialty Start Date End Date Maya Mcclain MD [address] [place] [phone] PCP - General 10/31/20
--- OUTSIDE RECORDS SUMMARY | 2024-11-23 15:04 | XMS_ITS ---
Author Organization [facility] Address [address] [place] [address] Care Team Providers Care Minibus Driver Name Role Phone Diane Burgess Primary Care Provider Nuvia Ireland [phone] Encounters Encounter Location Date Provider Diagnosis [place] [address] [place] [address] 11/09/2024 Nuvia Ireland Plan Of Treatment No Information Progress Notes * Dipti LUNADOB:1960 (64 yo F)Acc No.[id number]:11/09/2024 Patient: Dipti GLEZ :1960 A ge:64 Y S ex:Female [address] [place], [address] * true * Date: Generated for Printi ng/Faxing/eTransmitting on: 0 11/23/2024 03:04 PM CDT
--- NOTE | 2024-11-23 18:58 | PC.NURSE ---
Pt. alerted this RN that she is leaving the [place] and will drive herself home. Pt. has home 02 with her. Requested that security take her out to her car via .
--- OUTSIDE RECORDS SUMMARY | 2024-11-23 19:48 | XMS_ITS | Clinical Summary ---
Author Organization [facility] Address [address] [facility] [place] [address] Care Team Providers Care Twine Winder Name Role Phone Maya Mcclain MD Primary Care Provider [phone] Source Comments [facility],non-owned Affiliates and Associated Physician Practices is amultiple site organization consisting of ambulatory clinics and hospital sitesin [place], [place], [place] and [place]. This disclosure is being madepursuant to the Care Everywhere program and may not contain all information available regarding this patient. Last updated 18.[employer] [facility] Allergies Active Allergy Reactions Criticality Noted Date [...] age to complete this topic Care Teams Twine Winder Relationship Specialty Start Date End Date Maya Mcclain MD [address] [place] [phone] PCP - General 10/31/20
--- OUTSIDE RECORDS SUMMARY | 2024-11-23 19:48 | XMS_ITS | Encounter Summary ---
Author Organization [facility] Address [address] [place] [address] Care Team Providers Care Head Refrigerating Engineer Name Role Phone Luis Saunders MD Unavailable [phone] Jammie Burdick MD Unavailable [phone] Ervin Garcia MD Unavailable [phone] Haleigh Young MD Primary Care Provi naye Jean Carlos Berrios MD Unavailable [phone] Rosa Herr RN Unavailable [phone] Braden Sherwood DO Unavailable [phone] Ladonna Martinez AUTOMAT WATCHER Unavailable [phone] Kamila Witt NP Unavailable [phone] Encounter Details Date Type Department Care Team (Late st Contact Info) Description 10/29/2024 Telephone [facility] Medical Group Family Medicine [address] [phone] Haleigh Young MD [address] [address] Social History Tobacco Use Types Packs/Day Years Used Date Smoking Tobacco: Former Cigarettes 1 40 0 10/05/1972 - 1998 Vaping Smokeless Tobacco: Never Comments:Smoking History Pac ks/day: 1 Packs Alcohol Use Standard Drinks/Week Comments No 0 (1 standard drink = 0.6 oz pur e alcohol) OASIS D0700: Social Isolation Answer Da te Recorded Frequency of experiencing loneliness or isolatio n Often 09/22/2023 OASIS A1250: Transportation Answer Date Recorded Lack of Transportation (Medical) No 09/22/2023 Lack of Transportation (Non-Medical) No 09/22/2023 Patient Unable or Declines to Respond No 09/22/2023 OASIS B1300: Health Literacy Answer Lucas e Recorded Frequency of needing help to read materials from doctor or pharmacy Sometimes 09/22/2023 [facility] Utilities Answer Date Recorded In the past 12 months has th e backstitch, gas, oil, or water PhoneFusion threatened to shut off services in your home? No 10/18/2024 Social Connection and Isolat ion Panel [NHANES] Answer Date Recorded In a typical week, how many times do you talk on the phone with family, friends, or neighbors? More than three times a week 10/18/2024 How often do you get togethe r with friends or relatives? More than three times a week 10/18/2024 How often do you attend chur ch or taoism services? Never 10/18/2024 Do you belong to any clubs o r organizations such as yarsanism groups, unions, fraternal or athletic groups, or school groups? No 10/18/2024 How often do you attend meet ings of the clubs or organizations you belong to? Never 10/18/2024 Are you , , di vorced, , never , or living with a partner? 10/18/2024 AUDIT-C Answer Date Recorded Q1: How often do you have a drink containing alcohol? Never 10/29/2024 Q2: How many drinks containi ng alcohol do you have on a typical day when you are drinking? Patient does not drink Q3: How often do you have si x or more drinks on one occasion? Never 10/29/2024 Overall Financial Resource Strain (CARDIA) Answe r Date Recorded How hard is it for you to pa y for the very basics like food, housing, medical care, and heating? Not very hard 10/18/2024 PHQ-2 Answer Date Recorded PHQ-2 Total Score (If total score is 3 or more points, staff should administer the PHQ-9) 0 10/29/2024 Hunger Vital Sign Answer Date Recorded Within the past 12 months, y ou worried that your food would run out before you got the money to buy more. Never true 10/18/19 25 Within the past 12 months, t he food you bought just didn't last and you didn't have money to get more. Never true 10/18/2024 PRAPARE - Transportation Answer Date Re corded In the past 12 months, has l ack of transportation kept you from medical appointments or from getting medications? No 02/2025 In the past 12 months, has l ack of transportation kept you from meetings, work, or from getting things needed for daily living? No 10/18/2024 Housing Stability Vital Sign Answer Lucas e Recorded In the last 12 months, was t here a time when you were not able to pay the mortgage or rent on time? No 10/17/2023 In the last 12 months, how many places have you lived? 1 10/17/2023 In the last 12 months, was t here a time when you did not have a steady place to sleep or slept in a correction (including now)? No 10/17/2023 Housing Stability Vital Sign Answer Lucas e Recorded In the last 12 months, was t here a time when you were not able to pay the mortgage or rent on time? No 10/18/2024 In the past 12 months, how m any times have you moved where you were living? 1 10/18/2024 At any time in the past 12 m [facility], were you homeless or living in a correction (including now)? No 10/18/2024 Personal Safety Answer Date Recorded Have you ever been in or are you currently in a harmful physical or emotional relationship or is someone making you feel afraid or unsafe? Denies 10/10/2024 Comments No Sex and Gender Information Value Date Recorded Sex Assigned at Not on file Legal Sex Female 1:41 PM HEALTH UNIT CLERK Gender Identity Not on file Sexual Orientation Not on file Occupation Industry Job Start Date Job End Date DISABILITY Not on file Not on file Not on file documented as of this encounter Functional Status * Audit-C Score Answer Date of Assessment Author 0 10/29/2024 1:23 PM HEALTH UNIT CLERK Tami Mota MA * Question Answer Date of Assessment Author Q1: How often do you have a drink containing alcohol? Never 10/29/2024 1:23 PM HEALTH UNIT CLERK Tami Mota MA Q2: How many drinks containing alcohol do you have on a typical day when you are drinking? Patient does not drink 10/29/2024 1:23 PM HEALTH UNIT CLERK Tami Mota MA Q3: How often do you have six or more drinks on one occasion? Never 10/29/2024 1:23 PM HEALTH UNIT CLERK Tami Mota MA documented as of this encounter Miscellaneous Notes * Telephone Encounter - Neda Cisneros LPN - 10/29/2024 11:52 AM CST Referral placed and supporting documentation sent TH UNIT CLERK * Telephone Encounter - Nicolas German LCSW - 10/29/2024 10:29 AM HEALTH UNIT CLERK Good morning. I spoke with patient and she confirmed plan to attend scheduled appointment today. She has if a new referral may be placed to palliative care provider due to chronic health conditions/symptoms management with discontinuous of habit forming medications. Her son will be moving to [place], where her daughter is also located. She will not have local familial support. Please assess/assist. Kindest regards, Nicolas German LCSW [facility] Medical Group Accountable Care Organization [phone] [email or web address] TH UNIT CLERK documented in this encounter Plan of Treatment Not on file documented as of this encounter Goals Goal Patient Goal Type Associated Problems Recent Progress Patient-Stated? Author RIMA General Goal - Patient is knowledgeable about condition when worsening and how to respond ACO Care Management On track(2023 1:13 PM HEALTH UNIT CLERK) Rosa Gu RN Note: Problem: Knowledge deficit related to signs and symptoms of worsening condition Interventions: - Assess patient's level of understanding related to their condition(s), specific medications and self-management of their chronic conditions. - Send educational materials to patient related to their chronic condition, including signs and symptoms, self-management actions, and serious symptoms that require urgent medical intervention. - Assist patient/provider in developing an action plan for symptom management. - Review with patient weekly: s/s worsening condition, self-management actions to take, when to call CM or provider. ACO SW Goal - Patient can identify and utilize needed community resources ACO Care Management On track(2024 10:21 AM HEALTH UNIT CLERK) No Bev Du LCSW Note: Problem: Need for Community Resources Interventions: - Provide patient/family with a list of appropriate resources for their specific need. - Help to coordinate resources. - Follow up to ensure patient/family has connected with the appropriate resources / personnel. CCM Chronic Pain Care Plan Chronic Care Management No Manjula Caal, COLLIN Note: Problem: Chronic Pain Goals: 1. Minimize further functional decline 2. Maximize quality of life 3. Control pain Strategies: - Activity/exercise program recommendation - Conservative stepwise pain medicine strategy with multi-disciplinary approach - Recommend healthy lifestyle strategies and compensatory methods as needed documented as of this encounter Visit Diagnoses Not on filedocumented in this encounter Care Teams Head Refrigerating Engineer Relationship Specialty Start Date End Date Haleigh Young MD [address] [place] [address] PCP - General Family Medicine 11/24/21 Luis Saunders MD Referring Physician Gastroenterology 07/31/18 Jammie Burdick MD Referring Physician Gastroenterology 07/31/18 Ervin Garcia MD [facility] [facility] [place] [address] Consulting Physician Pulmonary Disease 07/08/20 Jean Carlos Berrios MD [address] [place] [address] Referring Physician Obstetrics and Gynecology 02/23/22 Rosa Herr, RN [address] [place] [address] [address] [place] [address] Angular Js Developer 06/03/22 Braden Sherwood DO [address] [facility] [address] [place] [address] Referring Physician Psychiatry 06/04/22 Ladonna Martinez NP [address] [facility] [address] [place] [address] Nurse Practitioner Nurse Practitioner 10/31/23 Kamila Witt NP [address] [facility] [place] [address] Nurse Practitioner Hospice and Palliative Medicine 03/01/24 documented as of this encounter
--- OUTSIDE RECORDS SUMMARY | 2024-11-23 19:48 | XMS_ITS | Clinical Summary ---
Author Organization [facility] Address [address] [place] [address] Care Team Providers Care Day Treatment Clinician/Art Therapist Name Role Phone Luis Saunders MD Unavailable [phone] Jammie Burdick MD Unavailable [phone] Ervin Garcia MD Unavailable Haleigh Young MD Primary Care Provi naye Jean Carlos Berrios MD Unavailable [phone] Rosa Herr RN Unavailable Braden Sherwood DO Unavailable [phone] Ladonna Martinez DONATION WORKER Unavailable Kamila Witt NP Unavailable [phone] Allergies Active Allergy Reactions Criticality Noted Date Comments Codeine Angioedema High throat closes Medications esomeprazole DR (NexIUM) 40 mg capsuleIndications :Treatment of Non-Bleeding Gastric Disorder Take 1 capsule (40 mg total) by mouth 2 (two) times a day Active oxygenIndications: Dyspnea Administer 2 L/min into each nostril continuously Active sucralfate (CARAFATE) 1 gram tablet Take 1 tablet (1 g total) by mouth 4 (four) times a day Active albuterol 2.5 mg /3 mL (0.083 %) nebulizer solutionIndication s:Chronic obstructive pulmonary disease, unspecified COPD type (HCC) USE ONE VIAL IN NEBULIZER FOUR TIMES DAILY 360 mL 3 04/17/20 24 Active SharpSafety Container misc as directed 02/27/20 Active Dupixent Pen pen injector 03/19/20 24 Active metoprolol tartrate (LOPRESSOR) 25 mg immediate release tablet Take 1 tablet (25 mg total) by mouth 2 (two) times a day 60 tablet 11 06/12/20 24 Active aspirin 81 mg enteric coated tablet Take 1 tablet (81 mg total) by mouth daily 30 tablet 11 06/12/20 24 Active atorvastatin (LIPITOR) 10 mg tabletIndications: Mixed hyperlipidemia Take 1 tablet (10 mg total) by mouth nightly 90 tablet 1 06/22/20 Active albuterol HFA (PROVENTIL HFA,VENTOLIN HFA,PROAIR HFA) 90 mcg/actuation inhaler INHALE 2 PUFFS BY MOUTH EVERY 6 HOURS NEEDED FOR WHEEZING 18 g 3 06/25/20 24 Active diclofenac sodium (VOLTAREN) 1 % gel Apply 2 g topically 3 (three) times a day 50 g 07/11/20 24 Active Trelegy Ellipta 200-62.5-25 mcg inhalerIndications :Maintenance Therapy for Asthma INHALE 1 PUFF BY MOUTH DAILY. RINSE MOUTH AFTER USE 180 each 3 08/16/20 24 Active naloxone (NARCAN) 4 mg/actuation spray,non-aerosol Administer 1 spray into affected nostril(s) as needed for opioid reversal or respiratory depression Call 911. Administer a single spray in one nostril. Repeat every 3 minutes as needed if no or minimal response. 1 each 10/02/19 25 Active valACYclovir (VALTREX) 500 mg tablet TAKE 1 TABLET BY MOUTH DAILY 30 tablet 1 10/02/19 25 Active venlafaxine XR (EFFEXOR-XR) 37.5 mg 24 hr capsule Take 1 capsule (37.5 mg total) by mouth daily 30 capsule 1 10/12/19 25 Active benzonatate (TESSALON) 200 mg capsule Take 1 capsule (200 mg total) by mouth 3 (three) times a day as needed for cough for up to 30 doses 30 capsule 2 10/24/19 25 Active alcohol swabs pads, medicatedIndicatio ns:Hyperglycemia Apply 1 each topically daily 200 each 3 02/13/20 25 Active blood-glucose meter kitIndications:Hyp erglycemia Use to check blood sugars daily 1 kit 10/25/19 Active lancets miscIndications:Hy perglycemia 1 each by other route as directed Use to check blood sugars daily 200 each 3 10/25/19 Active blood glucose diagnostic (glucose blood) stripIndications:H yperglycemia Use to check blood sugar daily as directed 100 each 3 10/25/19 Active metroNIDAZOLE (FLAGYL) 500 mg tablet Take 1 tablet (500 mg total) by mouth 2 (two) times a day for 7 days 14 tablet 10/29/19 25 025 ciprofloxacin (CIPRO) 500 mg tablet Take 1 tablet (500 mg total) by mouth 2 (two) times a day for 7 days 14 tablet 10/29/19 25 025 Active Problems Problem Noted Date Diagnosed Date Urinary retention 02/09/2024 Assessment & Plan (02/09/2024 11:32 AM CDT): Mild issue over the last few months but had to be catheterized in the hospital. Currently stable. - continue tamsulosin until you have follow-up with Urology Pulmonary hypertension 01/30/2024 Diastolic dysfunction 01/30/2024 COPD exacerbation 01/28/2024 Assessment & Plan (07/27/2024 3:57 PM SUPERVISOR BUILDING [employer]INTENANCE): Symptom duration 2 weeks Recent covid, flu testing negative from ER Hx of COPD, on trelegy daily, albuterol daily On 3L O2 supplemental oxygen at rest saturating at 96%, lungs CTAB, NAD Chest x-ray ordered, patient declined getting it done at this time, stated she would like to go after 2 days of starting medications. Prednisone as prescribed Azithromycin as prescribed ER for increased SOB, CP, dizziness, fevers, worsening symptoms, confusion See pcp for ongoing memory issues Assessment & Plan (02/09/2024 11:30 AM CDT): With recent hospital admission and pneumonia. Recovering well. - continue nebulizer treatments 4 times daily - continue Trelegy daily - continue albuterol inhaler as needed - follow with pulmonology in February. Chronic bilateral thoracic back pain 11/01/2023 Assessment & Plan (11/01/2023 10:01 AM SUPERVISOR BUILDING [employer]INTENANCE): Chronic, persistent Encouraged to follow up with pain management Encouraged to update me after the visit Continue lyrica as prescribed Urinary incontinence 11/01/2023 Assessment & Plan (11/01/2023 10:05 AM SUPERVISOR BUILDING [employer]INTENANCE): Chronic, persistent Will place referral to urology for guidance Update me after the visit Incontinence of feces with fecal urgency Assessment & Plan (11/01/2023 10:02 AM SUPERVISOR BUILDING MAINTENANCE): Chronic, persistent Encouraged to follow up with Dr Burdick Update me after the visit Call for questions Chronic respiratory failure with hypoxia Assessment & Plan (06/28/2024 11:25 AM CDT): Chronic. Stable. Continue supplemental oxygen, 2 L. continue to follow with pulmonology. Assessment & Plan (04/12/2024 1:17 PM CDT): Chronic, persistent Oxygen level improved today Will reach out to her sole dyer given her numbers, I do worry her oxygen levels running higher We discussed her breathing, palliative care and hospice The patient is visibly tearful and upset, and does not want to go to the hospital Given symptomatically she is better than she has been, we agreed to not go to the hospital currently, but that we will check labs and an x-ray If her symptoms worsen, she does need to be evaluated in the emergency room This was reviewed with the patient and her elderly sitter Assessment & Plan (02/09/2024 11:30 AM CDT): Chronic. Doing well on room air - O2 97%. Continue supplemental oxygen 2 L when at home. Mixed hyperlipidemia 06/17/2023 Irritable bowel syndrome without diarrhea 2022 Osteoporosis 03/29/2023 COVID-19 virus infection 03/26/2022 Assessment & Plan (04/12/2022 11:43 AM CDT): With possible aspiration pneumonia Antibiotics completed, but white count keep climbing Given her shortness of breath cough and overall poor feeling, will refer back to the ER for further evaluation Update me after the visit Call for questions or concerns Menopausal symptom 01/26/2022 Class 1 obesity due to exces s calories with serious comorbidity and body mass index (BMI) of 30.0 to 30.9 in adult 01/26/2022 Assessment & Plan (10/29/2024 1:54 PM SUPERVISOR BUILDING [employer]INTENANCE): BMI Follow-up includes: education provided. Assessment & Plan (10/17/2024 12:08 PM SUPERVISOR [employer]ILDING [employer]INTENANCE): Chronic, stable BMI Follow-up includes: Encouraged healthy changes including eating regularly . Assessment & Plan (12/02/2023 2:30 PM CDT): Chronic, slightly less BMI Follow-up includes: encouraged eating at least 2 meals a day and a snack . Assessment & Plan (03/29/2023 2:24 PM CDT): BMI Follow-up includes: nutrition counseling. Assessment & Plan (02/22/2023 8:26 AM CDT): BMI Follow-up includes: nutrition counseling. Assessment & Plan (01/26/2022 1:06 PM CDT): BMI Follow-up includes: nutrition counseling. Primary hypertension 01/17/2022 Assessment & Plan (06/28/2024 11:24 AM CDT): Chronic. Well-controlled. Per Cardiology she will stay off amlodipine and continue metoprolol. Assessment & Plan (04/12/2024 1:17 PM CDT): Chronic, elevated today For now, continue amlodipine Continue to monitor her blood pressure Update me with how her pressures are running Assessment & Plan (02/09/2024 11:29 AM CDT): Chronic. Stable. Continue amlodipine 2.5 mg Assessment & Plan (01/26/2022 12:54 PM CDT): Continue clonidine and cardizem Continue to follow with her seafood harvester Update me with any changes Call for questions or concerns Assessment & Plan (01/17/2022 12:10 PM CDT): Blood pressure controlled. Continue clonidine 0.2 mg weekly, diltiazem XR 120 mg daily,. Monitor blood pressure, adjust meds accordingly Generalized weakness 01/06/2022 Assessment & Plan (03/29/2023 2:29 PM CDT): Chronic, persistent Continue supportive care We discussed PT- unable to afford. Assessment & Plan (01/26/2022 1:02 PM CDT): We discussed PT/OT Patient said no at the hospital I want her to consider it- it may help! Mild episode of recurrent major depressive disor naye 11/24/2021 Assessment & Plan (03/29/2023 2:35 PM CDT): Chronic, persistent Continue to follow with psychiatry Continue effexor Assessment & Plan (11/24/2021 10:22 AM CDT): Continue to follow with Dr Sherwood Update me with any changes Continue alprazolam and effexor through him Call for questions Cervical spine arthritis 11/24/2021 Assessment & Plan (11/01/2023 10:01 AM SUPERVISOR BUILDING [employer]INTENANCE): Chronic, persistent Encouraged to follow up with pain management Update me after the visit Assessment & Plan (03/29/2023 2:22 PM CDT): Chronic, persistent She has an appt pending with pain management She has had difficulty with her medications- but will check on any issues Update me with any changes Call for questions Assessment & Plan (11/24/2021 10:41 AM CDT): Will check xrays Tylenol, ice/heat as needed, consider salonpas as well Consider PT Consider pain management Attention deficit hyperactiv ity disorder, predominantly inattentive type 08/17/2021 Assessment & Plan (03/29/2023 12:46 PM CDT): Chronic, uncontrolled Continue to follow with her psychiatrist Update me if she starts any new medications Assessment & Plan (11/24/2021 10:32 AM CDT): Currently not on medication Continue to follow with her psychiatrist Atypical chest pain 08/17/2021 Assessment & Plan (02/09/2024 11:27 AM CDT): Chronic. EKG and echocardiogram on 02/03/2024 were overall normal with sinus tachycardia. - follow-up with cardiology as scheduled, may need stress test Assessment & Plan (03/29/2023 12:46 PM CDT): Asymptomatic currently Continue to follow with Cardiology Assessment & Plan (07/01/2022 2:43 PM CDT): CT scan and stress test reviewed Continue to treat GERD, and continue to treat anxiety Continue to follow Cardiology Cobalamin deficiency 08/17/2021 Assessment & Plan (03/29/2023 2:25 PM CDT): By history Will recheck Other dysphagia 08/17/2021 History of drug overdose 08/17/2021 Degenerative joint disease of upper arm 08/17/20 21 Assessment & Plan (03/29/2023 2:25 PM CDT): Chronic Encouraged tylenol arthritis Keep appt with pain management Colitis 08/17/2021 Assessment & Plan (03/29/2023 2:25 PM CDT): Resolved Continue to monitor her symptoms HSV (herpes simplex virus) infection 08/17/2021 Assessment & Plan (03/29/2023 2:30 PM CDT): Chronic, stable Continue valtrex through [employer] MACH[employer] KNIFE SETTER History of Lena fundoplication 08/17/2021 History of diverticulitis 08/17/2021 Palpitations with regular cardiac rhythm 12/06/2 021 Assessment & Plan (11/24/2021 10:39 AM CDT): Continue to follow with cardiology Continue current regimen Update me with any changes Nicotine vapor product user 08/17/2021 History of GI bleed 08/17/2021 Assessment & Plan (03/29/2023 4:55 PM CDT): Low blood counts Advised to set up an appointment with Hematology, she has that referral Tachycardia 08/17/2021 Assessment & Plan (02/09/2024 11:29 AM CDT): Chronic. Mild, 112 today. Patient will follow up with Cardiology though this could be related to lung issues. Assessment & Plan (06/04/2022 12:46 PM CDT): Continue Doug Set up follow-up with her seafood harvester as well Update me with any changes Call for questions or concerns Assessment & Plan (05/21/2022 6:17 PM CDT): With SVT during her hospital stay at [facility] Continue doug Encouraged follow up with cardiology For now- she is being referred to the er for her pain/distress Update me with any changes Assessment & Plan (04/12/2022 11:46 AM CDT): With high white blood cell count, malaise. She was septic in the hospital, I worry about sepsis again Will refer to the emergency room for further guidance Sleep-related hypoxia 08/17/2021 Encounter for Medicare annual wellness exam 02/2021 Overview (03/29/2023): Discussed healthy diet and , working on daily activity to your level, wearing sun screen, seat belts. Discussed importance of scheduling recommended screening tests. Discussed importance of regular physical examinations for health maintenance She has a POA- son Health Maintenance: Last mammogram: scheduled next week Last DEXA: 02/2023- osteoporosis Last colonoscopy: 01/27/17- repeat in 10 years Last Tdap: encouraged Last pneumonia: encouraged Last Shingrix: encouraged Last Flu: up to date Last COVID: up to date Test results: if you have not received communication about test results within 7 days of the test being performed, please contact the office. I strongly encourage myChart sign ups. It can facilitate communication flow. Please contact the office for instructions on signing up. Assessment & Plan (03/29/2023 2:17 PM CDT): Discussed healthy diet and , working on daily activity to your level, wearing sun screen, seat belts. Discussed importance of scheduling recommended screening tests. Discussed importance of regular physical examinations for health maintenance She has a POA- son Health Maintenance: Last mammogram: scheduled next week Last DEXA: 02/2023- osteoporosis Last colonoscopy: 01/27/17- repeat in 10 years Last Tdap: encouraged Last pneumonia: encouraged Last Shingrix: encouraged Last Flu: up to date Last COVID: up to date Test results: if you have not received communication about test results within 7 days of the test being performed, please contact the office. I strongly encourage myChart sign ups. It can facilitate communication flow. Please contact the office for instructions on signing up. Weight loss 08/17/2021 Vitamin D deficiency 09/16/2020 Assessment & Plan (01/26/2022 1:03 PM CDT): Continue replacement Recheck in 6 months Call for questions Assessment & Plan (11/24/2021 10:39 AM CDT): Labs ordered Dizziness 09/16/2020 Assessment & Plan (03/29/2023 2:26 PM CDT): Chronic, intermittent symptoms Continue to monitor Assessment & Plan (09/16/2020 3:02 PM SUPERVISOR BUILDING MAINTENANCE): Unclear etiology She is not specific on her complaint Will provide antivert and scopolamine patches Fibromyalgia 07/15/2020 Assessment & Plan (06/28/2024 11:26 AM CDT): Chronic. Somewhat stable. Patient has also opted for palliative care. Continue venlafaxine, alprazolam, oxycodone per palliative care. She is no longer taking Lyrica she felt this did not help Assessment & Plan (02/09/2024 11:41 AM CDT): Chronic. Stable. We will change from tizanidine to baclofen due to potential interactions of tizanidine with valacyclovir and venlafaxine. Assessment & Plan (03/29/2023 2:27 PM CDT): Chronic Continue tizanidine Keep appt with pain management Consider pt Assessment & Plan (09/16/2020 3:01 PM SUPERVISOR BUILDING MAINTENANCE): Currently only taking effexor contineu current management Assessment & Plan (07/15/2020 8:50 AM SUPERVISOR BUILDING MAINTENANCE): We will start lyrica 150 mg BID When we follow-up with her she will need to submit a drug screen to rule out other possible street drugs with the reported history from previous provider Bipolar disorder 07/08/2020 Assessment & Plan (06/28/2024 11:25 AM CDT): Chronic. Worsening depression recently. Patient may want to see a new psychiatrist, given list of resources today. Continue venlafaxine. - Continue to see counselor - Encouraged to talk with counseling about support groups. Assessment & Plan (11/01/2023 10:06 AM SUPERVISOR BUILDING MAINTENANCE): Chronic, worse Encouraged to reach out to her psychiatrist Continue xanax, effexor for now Continue healthy habits for her mood Update me if anything changes To the er for any dangerous thoughts Call for questions Assessment & Plan (03/29/2023 2:21 PM CDT): Chronic, stable Continue to follow with her psychiatrist Continue Effexor, Xanax Encouraged working with a therapist Update me with any changes Assessment & Plan (05/21/2022 6:13 PM CDT): Tearful, anxious Encouraged to set up follow up with Psych as soon as she is able to Update me with any changes Assessment & Plan (04/12/2022 11:45 AM CDT): Continue to follow with her psychiatrist Assessment & Plan (01/17/2022 12:07 PM CDT): Continue venlafaxine 150 mg daily. Follows up with Dr. Sherwood Assessment & Plan (11/24/2021 10:33 AM CDT): Continue effexor Continue to follow with Dr Sherwood Update me with any changes Call for questions or concerns Assessment & Plan (07/15/2020 8:48 AM SUPERVISOR BUILDING MAINTENANCE): We will continue this current regime, she states she is more in the class of major depressive disorder With her neurological complaints of inablity to move her arm we stopped her abilify and it appears to not have affected her mood Start remeron at night Assessment & Plan (07/08/2020 8:30 AM CDT): Continue Abilify Stopping addrell-does not make much sense to be on this at the age of 60 and unemployed Discuss need to cut back her medications and number of schedule II she is on Also cutting back on the effexor, starting remeron for sleep, hoping to be able to possible change this out Chronic bilateral low back pain with bilateral s ciatica 07/08/2020 Assessment & Plan (11/01/2023 10:01 AM SUPERVISOR BUILDING MAINTENANCE): Chronic, persistent Encouraged to follow up with pain management-she has stated she will follow up Update me with changes Assessment & Plan (03/29/2023 2:24 PM CDT): Chronic, persistent/ poor control Continue tizanidine Reach out to her pharmacy about gabapentin-?if she needs to go to mail order vs other Keep appt with pain management Continue supportive care Assessment & Plan (01/17/2022 12:03 PM CDT): Chronic back pain 2/2multilevel spondylosis seen on CT scan of lumbar spine. Continue pain management with Ballantine 5/325 mg q.6 p.r.n., lidocaine patch, Flexeril 5 mg t.i.d. p.r.n.. PT/OT care. Patient need to follow up with Dr. Delatorre outpatient Assessment & Plan (11/24/2021 10:34 AM CDT): Will check xray We discussed PT- she is unable to afford it She is going home exercises Continue supportive care Further guidance once we have the results Assessment & Plan (07/15/2020 8:48 AM SUPERVISOR BUILDING MAINTENANCE): Recommend THC, we will seek out a medical THC card if she wishes to pursue this Assessment & Plan (07/08/2020 8:36 AM CDT): Has been an issue for years Nothing can be offered from a surgical standpoint Patient admits to taking several schedule II drugs including lyrica and oxycodone Recommend we find a better regime Gastroesophageal reflux disease without esophagi tis 07/08/2020 Assessment & Plan (03/29/2023 2:28 PM CDT): Chronic, stable Continue nexium Continue to follow with Dr Saunders Assessment & Plan (01/26/2022 12:53 PM CDT): With a patchy esophagus Will refer to Dr Saunders Continue nexium Update me after the visit Call for questions or concerns Assessment & Plan (01/17/2022 12:08 PM CDT): Continue Nexium 40 mg daily. Assessment & Plan (11/24/2021 10:37 AM CDT): Currently on nexium BID through Dr Saunders Reviewed the risks/benefits of medication, including c diff, pneumonia, and bone loss Generalized anxiety disorder 07/08/2020 Assessment & Plan (03/29/2023 2:28 PM CDT): Chronic, persistent Continue to follow with psychiatry Continue her current regimen Assessment & Plan (01/17/2022 12:08 PM CDT): Continue alprazolam 0.5 mg b.i.d.. Assessment & Plan (11/24/2021 10:22 AM CDT): Continue to follow with Dr Sherwood Update me with any changes Continue alprazolam and effexor through him Call for questions Assessment & Plan (07/15/2020 8:49 AM SUPERVISOR BUILDING MAINTENANCE): Remeron and effecor Taking only 150 mg of effexor right now Recommend psych phsysician to handle her medications, however I believe her being on double of the recommended dose on top of ambilgy, lyrica and other schedule II drugs likely was playing a component in her medications Assessment & Plan (07/08/2020 8:34 AM CDT): Taking alprazaolam disntergrating table, last recevied this on 05/14, and received 90 tablets on 05/14 We will do atraxax for now Lung nodules 01/09/2019 Assessment & Plan (03/29/2023 2:34 PM CDT): Last CT in 07/03- stable Continue to follow with pulmonary Assessment & Plan (06/04/2022 10:55 AM CDT): CT scan reviewed Will need a F/U CT in 1-3 months Keep appointment with pulmonary Update me with any changes Call for questions or concerns Assessment & Plan (05/21/2022 6:20 PM CDT): Will need repeat CT scan in Sep/2022 Continue to follow with her Pulm/Dr Garcia Update me with any changes or concerns Hiatal hernia with GERD 09/07/2018 Overview (09/07/2018): Added automatically from request for surgery [id number] Assessment & Plan (03/29/2023 4:54 PM CDT): Chronic, stable Continue Nexium Continue to follow with Dr. Saunders Assessment & Plan (01/26/2022 12:53 PM CDT): Referral to Dr Saundesr placed Continue nexium Chronic obstructive pulmonary disease 07/11/2018 Overview (08/17/2021): Patient has diagnosis of COPD. Unable to afford inhalers. Assessment & Plan (04/12/2024 1:16 PM CDT): Chronic, possible COPD exacerbation versus other On exam today, symptomatically improved Continue albuterol, oxygen Start prednisone and doxycycline Will check chest x-ray If her symptoms worsen, she does need to be evaluated in the emergency room Follow-up with me in two weeks Call for questions Assessment & Plan (03/29/2023 2:24 PM CDT): Chronic, stable Continue to follow with pulmonary Continue her inhalers Assessment & Plan (06/04/2022 12:41 PM CDT): It chronic, stable Continue her inhalers Continue to follow with Pulmonary Update me with any changes or concerns Call for questions Assessment & Plan (05/21/2022 6:14 PM CDT): Chronic, but improved today per the patient Continue her inhalers Continue to follow with cardiology Update me with any changes Assessment & Plan (01/17/2022 12:10 PM CDT): Continue albuterol p.r.n., Katharine, Melchor, Mucinex. Follows up with Pulmonary outpatient with Dr. Garcia Assessment & Plan (11/24/2021 10:34 AM CDT): Continue to follow with pulmonary Continue her inhalers Assessment & Plan (09/16/2020 3:02 PM SUPERVISOR BUILDING MAINTENANCE): Continue seeing pulm travel information center supervisor antibiotic and steroids Assessment & Plan (07/08/2020 8:35 AM CDT): Continue to follow-up with pulm History of aspiration pneumonia 05/18/2018 Iron deficiency anemia, unspecified 03/20/2018 Assessment & Plan (11/01/2023 10:09 AM SUPERVISOR BUILDING MAINTENANCE): Chronic, stable Managed by heme/onc Update me with any changes or concerns Call for questions Assessment & Plan (03/29/2023 2:31 PM CDT): Chronic Will place referral to heme Update me after the visit Assessment & Plan (07/08/2020 8:34 AM CDT): As required iron tranfusions in the past per the patient Apparently has a GI bleed somewhere but she is unclear on where Dyspnea on exertion 10/26/2016 Overview (12/17/2016): Dyspnea on exertion Assessment & Plan (02/09/2024 11:26 AM CDT): Chronic. Patient reports shortness of breath is worse when her heart rate seems to be elevated. - she has a call in to the new seafood harvester to see if she can follow-up sooner than May Assessment & Plan (03/29/2023 2:26 PM CDT): Resolved with treatment of her copd Assessment & Plan (04/12/2022 11:44 AM CDT): Chronic but slightly worse since the hospital stay Given her increasing white count, will refer back to the hospital Update me with any changes Call for questions or concerns History of tobacco use 10/26/2016 Overview (12/17/2016): History of tobacco abuse Assessment & Plan (03/29/2023 2:29 PM CDT): Last cigarette was 14 years ago Continue to follow with pulmonary Assessment & Plan (07/08/2020 8:34 AM CDT): Now uses vaping Chronic bullous emphysema ([facility]/HCC) 10/26/2016 Overview (12/17/2016): Bullous emphysema Assessment & Plan (06/28/2024 11:24 AM CDT): Chronic. Stable. Continue to follow with pulmonology. Continue supplemental O2 2 L, Trelegy Ellipta inhaler, albuterol inhaler as needed. Assessment & Plan (02/09/2024 11:27 AM CDT): Chronic. With recent exacerbation and hospitalization. Recovering well. - follow-up with pulmonology as scheduled in February - continue Trelegy inhaler daily - continue nebulizer treatments 4 times daily - continue albuterol inhaler as needed Assessment & Plan (03/29/2023 12:47 PM CDT): Chronic, stable Continue to follow with pulmonology Continue her inhalers Assessment & Plan (04/12/2022 11:45 AM CDT): Past her O2 walk test, but breathing harder during her visit today Will refer back to the emergency room Continue her inhalers Keep her follow-up visit with Pulmonary Update me with any changes or concerns Assessment & Plan (01/26/2022 12:52 PM CDT): Continue to follow with Dr Garcia Continue her inhalers Reviewed both benzos and pain medication could affect her breathing Update me with any changes Call for questions or concerns Assessment & Plan (11/24/2021 10:34 AM CDT): Continue albuterol, trelegy, and duonebs Continue to follow with Dr Garcia Assessment & Plan (07/15/2020 8:47 AM SUPERVISOR [employer]ILD[employer]INTENANCE): Likely resulting in her SOB with the change in medications Continue inhaler and seeing pulm History of gastric ulcer 08/04/2015 Assessment & Plan (03/29/2023 4:54 PM CDT): Resolved Continue Nexium Update me with changes or concerns Continue to follow with GI History of fall Spinal stenosis of lumbar region at multiple lev els Assessment & Plan (11/01/2023 10:02 AM SUPERVIS[employer]INTENANCE): Chronic, persistent Encouraged to follow up with pain management Continue lyrica Call for questions or concerns Assessment & Plan (01/26/2022 1:01 PM CDT): Will refer to Dr Delatorre I reviewed with her that we are not able to do chronic narcotics with her xanax- it is not safe Will do a small of gabapentin twice daily I want to keep doing her home exercises Continue supportive care Update me with any changes Update me in 1 week to review how she is doing Call if her symptoms change or worsen Resolved Problems Problem Noted Date Diagnosed Date Resolved Date Chest pain, unspecified type 06/24/2022 03/29/2023 Abdominal pain 05/27/2022 03/29/2023 Overview (05/30/2022): Added automatically from request for surgery [id number] Diverticulitis large intesti ne w/o perforation or abscess w/o bleeding 05/12/202203/12 Assessment & Plan (06/04/2022 10:51 AM CDT): Recurrent episodes We discussed that she needs to complete her antibiotics She needs to set up an appointment with GI/Dr Saunders If anything worsens or changes, she needs to be evaluated Update me with any concerns Call for questions or concerns Diverticulitis 03/26/2022 03/29/2023 Assessment & Plan (05/21/2022 6:13 PM CDT): Improving at the time of discharge- but now with worsening pain, difficulty eating/drinking We reviewed that she has had a difficult month with 2 hospitalizations With 10/10 pain not responding to medication, encouraged to go to the er Reviewed that if she is admitted, we may need to look at SNF or something similar to recover and get ready to come home Consider referral to social work to help Update us on Tuesday Call for questions Aspiration pneumonia of right lower lobe 03/26/2022 03/29/2023 Assessment & Plan (04/12/2022 11:45 AM CDT): Antibiotics have been completed Continues to have cough and shortness of breath with increasing white count Will refer to ER to complete evaluation Update me with any changes or concerns Inability to perform activit ies of daily living 01/06/2022 03/29/2023 Assessment & Plan (03/29/2023 2:31 PM CDT): Currently able to help with her ADL's Assessment & Plan (05/21/2022 6:22 PM CDT): She has had 2 hospitalizations, and is having difficulty at home I reviewed with her that she may need to look into SNF or a similar option to help her recover Encouraged to be open to It- especially as she has had a difficult time at home Consider social work referral through the ACO if she is not admitted Update me after the visit callf or questions Abdominal pain 08/17/2021 11/24/2021 Acute blood loss anemia 08/17/202111/10 Acute renal failure syndrome 08/17/2021 11/24/2021 Altered level of consciousness 08/17/2021 11/24/2021 Anxiety 08/17/2021 03/29/2023 Assessment & Plan (07/01/2022 2:45 PM CDT): Chronic, followed by Psychiatry Continue Shravan We reviewed controlled substances, and that they normally have to be prescribed by 1 person, and that it is important for her to reach out to her psychiatrist when she is due Advised she has to keep the medication safe Update us with any questions or concerns Assessment & Plan (01/26/2022 12:51 PM CDT): On xanaxshravan Encouraged to follow up with her psychiatrist, psychologist Update me after her visit Call for questions or concerns Anxiety with depression 08/17/202111/10 Adamaris infection 08/17/2021 11/24/2021 Community acquired pneumonia, bilateral 08/17/2021 11/24/2021 Encephalopathy 08/17/2021 03/29/2023 Assessment & Plan (03/29/2023 2:26 PM CDT): resolved Hypokalemia due to loss of potassium 08/17/2021 03/29/2023 Assessment & Plan (03/29/2023 2:30 PM CDT): resolved Hypotension 08/17/2021 03/29/2023 Assessment & Plan (03/29/2023 2:30 PM CDT): resolved Leukocytosis 08/17/2021 03/29/2023 Assessment & Plan (03/29/2023 2:32 PM CDT): resolved Assessment & Plan (04/12/2022 11:46 AM CDT): Getting higher with each lab test, patient with malaise, abdominal pain, shortness of breath Will refer back to the emergency room for further evaluation Update me with any changes or concerns Melena 08/17/2021 03/29/2023 Anemia 08/17/2021 03/29/2023 Assessment & Plan (05/21/2022 6:18 PM CDT): Chronic, persistent Labs reviewed from her exchange architect Referral to hematology pending Update me after the visit Call for questions History of substance abuse 08/17/2021 0 11/01/2023 Chronic, continuous use of opioids 08/17/2021 02/22/2023 Assessment & Plan (06/04/2022 10:52 AM CDT): She was off opioids earlier this year We reviewed at that time, we are not able to do chronic narcotics given her chronic xanax She requested pain medication- I did let her know she has enough until next week. I can give her one refill, but she needs to see pain management Update me with any changes or concerns Assessment & Plan (11/24/2021 10:36 AM CDT): Off opioids currently Reviewed currently guidelines, and that we cannot do chronic medications for anxiety like benzos and opioids Will start with xrays Further guidance once we have the results Nicotine dependence with current use 08/17/2021 11/24/2021 Postprandial epigastric pain 08/17/2021 03/29/2023 Vaginitis 08/17/2021 03/29/2023 UTI (urinary tract infection) 08/17/2021 03/29/2023 Stimulant abuse 08/17/2021 11/01/2023 Weakness 08/17/2021 03/29/2023 Calculus of gallbladder with out cholecystitis without obstruction 09/07/2018 11/24/2021 Overview (09/07/2018): Added automatically from request for surgery [id number] Gastric ulcer 08/04/2015 03/29/2023 Encounters Date Type Department Care Team Description 11/23/2024 Nurse Triage [address] [phone] Haleigh Young MD 11/23/2024 Telephone [facility] Pulmonology [address] [place] [phone] Syl Jaimes RN 11/19/2024 Orders Only [address] [phone] Haleigh Young MD Chronic respiratory failure with hypoxia (HCC) (Primary Dx) 11/14/[address] [phone] Haleigh Young MD Medical Question/Miscellaneo us 11/09/[address] [phone] Haleigh Young MD Medical Question/Miscellaneo us 10/29/2024 1:30 PM [employer] Office Visit [address] [phone] Heather Arteaga PA Acute bilateral lower abdominal pain (Primary Dx); Chronic bullous emphysema (CMS/HCC) (HCC); Chronic respiratory failure with hypoxia (HCC); Class 1 obesity due to excess calories with serious comorbidity and body mass index (BMI) of 30.0 to 30.9 in adult 10/29/2024 Orders Only [address] [phone] Haleigh Young MD Chronic respiratory failure with hypoxia (HCC) (Primary Dx) 10/29/[address] [phone] Haleigh Young MD 10/24/2024 10:55 AM [employer]PER[employer]ILD[employer]INTENAN[employer] Lab [facility] Medical Office Building [address] [place] [address] Hyperglycemia; Iron deficiency anemia due to chronic blood loss 10/24/2024 10:30 AM [employer]TENAN[employer] Office Visit [facility] Pulmonary [place] [address] [facility] [address] [place] [phone] Ervin Garcia MD Chronic obstructive pulmonary disease, unspecified COPD type (HCC) (Primary Dx); PEREZ (dyspnea on exertion); Chronic respiratory failure with hypoxia (HCC) 10/17/2024 10:45 AM [employer]TENAN[employer] Office Visit [address] [phone] Haleigh Young MD Narcotic dependence (HCC) (Primary Dx); Benzodiazepine dependence (HCC); Generalized anxiety disorder; Iron deficiency anemia due to chronic blood loss; Hyperglycemia; Class 1 obesity due to excess calories with serious comorbidity and body mass index (BMI) of 32.0 to 32.9 in adult 10/16/2024 [facility] Outreach [facility] Care Organization [address] [place] [phone] Sally Castañeda MA 10/15/2024 Nurse Triage [address] [phone] Haleigh Young MD 10/12/2024 Orders Only [address] [phone] Heather Arteaga PA 10/12/2024 [facility] Outreach [facility] Accountable Care Organization [address] [place] [address] Sally Castañeda MA 10/11/2024 3:06 AM SUPER[employer]ILD[employer]TENANCE - 10/11/2024 7:25 AM [facility] Emergency [facility] Emergency Department [address] [place] [address] Jean Claude Matta Jr., MD Paruchuri, Tharun, MD Narcotic dependence (HCC) (Primary Dx); Benzodiazepine dependence (HCC); Atypical chest pain; End stage COPD (HCC); Palliative care patient Discharge Disposition: Discharge to home or self care 10/11/2024 Telephone [facility] Palliative Care [address] [place] [phone] Kamila Witt NP 10/11/2024 Orders Only Hospitalists [address] [facility] [address] [place] [address] Manuelito Baltazar MD 10/11/[address] [phone] Haleigh Young MD Med Refill 10/11/[address] [phone] Haleigh Young MD Appointment Request 10/10/2024 Documentation [facility] Palliative Care [address] [place] [phone] Kaimla Witt NP 10/02/2024 Orders Only [facility] Palliative Care [address] [place] [phone] Kamila Witt NP Chronic bilateral low back pain with bilateral sciatica; Spinal stenosis of lumbar region at multiple levels 09/26/[address] [phone] Hlaeigh Young MD Poor Memory/Concentration 09/24/2024 Telephone [facility] Family Medicine [address] [place] [phone] Haleigh Young MD 09/23/2024 5:01 AM [employer]TE[employer]NCE - 09/23/2024 11:05 AM [facility] Emergency Department [address] [place] [address] Sushant Ramirez DO Medication refill (Primary Dx); Chronic pain syndrome; Chronic bilateral low back pain with bilateral sciatica; Spinal stenosis of lumbar region at multiple levels; Hypoglycemia Discharge Disposition: Discharge to home or self care 09/22/2024 Telephone [facility] Palliative Care [address] [place] [phone] Kamila Witt NP 09/18/2024 Orders Only [facility] Palliative Care [address] [place] [phone] Kamila Witt NP COPD exacerbation (HCC) (Primary Dx) 09/10/2024 Orders Only [facility] Palliative Care [address] [place] [phone] Kamila Witt NP Chronic bilateral low back pain with bilateral sciatica; Spinal stenosis of lumbar region at multiple levels 09/07/2024 1:35 PM [facility] - 09/07/2024 1:45 PM [facility] Emergency Department [address] [place] [phone] Discharge Disposition: Left without being seen 09/06/2024 Telephone [facility] Family Medicine [address] [place] [phone] Haleigh Young MD Shortness of Breath 08/30/2024 Telephone [facility] [address] [phone] Ervin Garcia MD Sick Call from Last 3 Months Immunizations Immunization Administration Dates Next Due Influenza, Quadrivalent, Hig h Dose, Preservative Free, Intrr 08/02/2023 Influenza, Quadrivalent, Spl it, Preservative Free, Intramuscular 06/25/2022,07/08/2020,06/12/2018 Influenza, Trivalent, High D ose, Split, Preservative Free, Intramuscular 06/28/2024 Influenza, Trivalent, IM (MDV) 06/01/2019 Influenza, Trivalent, Preser vative Free, Intramuscular 06/11/2018,06/01/2016 Influenza, Unspecified 06/17/2023(Deferr ed: Patient decision),05/21/2022(Deferred: Patient ill today),06/12/2021,06/12/2021(Deferred: Patient Refused),06/12/2021(Deferred: Patient Refused),06/12/2021(Deferred: Patient Refused),06/12/2020,09/01/2012 PPD TEST 01/09/2022 Pneumococcal Conjugate Pcv20 03/29/2023 Pneumococcal Polysaccharide PPV23 07/11/2018, Surgical History Surgery Date Site/Laterality Comments HYSTERECTOMY TUBAL LIGATION HEMORROIDECTOMY BLADDER SUSPENSION CHOLECYSTECTOMY HERNIA REPAIR TONSILLECTOMY ESOPHAGOGASTRODUODENOSCOPY BREAST BIOPSY Right Medical History Medical History Date Comments Depression Depression Pulmonary emphysema (HCC) Emphys edwin Gastroesophageal reflux disease GERD Arthritis Bulging lumbar disc Asthma Anxiety COPD (chronic obstructive pu lmonary disease) (HCC) Peptic ulcer Chronic pain disorder Extremity pain Alcoholism (HCC) Anemia Bipolar disorder (HCC) Gastric reflux History of transfusion Abdominal pain 08/17/2021 Acute blood loss anemia 08/17/2021 Acute renal failure syndrome 08/17/2021 Altered level of consciousness 08/17/2021 Calculus of gallbladder with out cholecystitis without obstruction 09/07/2018 Added automatically from request for surgery [id number] Community acquired pneumonia, bilateral 08/17/20 21 Diverticulitis Kidney infection Chronic, continuous use of opioids 08/17/2021 Diverticulitis large intesti ne w/o perforation or abscess w/o bleeding 05/12/2022 Gastric ulcer 08/04/2015 Hypotension 08/17/2021 Inability to perform activit ies of daily living 01/06/2022 Leukocytosis 08/17/2021 Low back pain Joint pain Knee pain Varicella Family History Medical History Relation Name Comments No Known Problems Brother Lung disease Father No Known Problems Father's Sister No Known Problems Maternal Grandfather No Known Problems Maternal Grandmother Macular degeneration Mother No Known Problems Mother's Brother No Known Problems Mother's Sister Other Other 1 No family histo ry of Asthma; Other Other 2 No family histo ry of Emphysema; Other Other 3 No family histo ry of Cancer, lung; No Known Problems Paternal Grandfather No Known Problems Paternal Grandmother No Known Problems Sister Relation Name Status Comments Brother Father Father's Sister Maternal Grandfather Maternal Grandmother Mother Alive Mother's Brother Mother's Sister Other 1 Other 2 Other 3 Paternal Grandfather Paternal Grandmother Sister Social History Tobacco Use Types Packs/Day Years Used Date Smoking Tobacco: Former Cigarettes 1 40 0 10/05/1972 - 1998 Vaping Smokeless Tobacco: Never Tobacco Cessation:Counseling Given: Not Answered Comments:Smoking History Packs/day: 1 Packs Alcohol Use Standard Drinks/Week Comments [...] materials from doctor or pharmacy Sometimes 09/22/2023 [facility] Utilities Answer Date Recorded In the past 12 months has th e [place], gas, oil, or water [employer] threatened to shut off services in your [...] often do you attend chur ch or religion services? Never 10/18/2024 Do you belong to any clubs o r organizations such as voodoo groups, unions, fraternal or athletic groups, or [...] place to sleep or slept in a care home (including now)? No 10/17/2023 Housing Stability Vital Sign Answer Lucas e Recorded In the last 12 months, was t here a time when you were not able to pay the mortgage or rent on time? No 10/18/2024 In the past 12 months, how m any times have you moved where you were living? 1 10/18/2024 At any time in the past 12 m [facility], were you homeless or living in a care home (including now)? No 10/18/2024 Personal Safety Answer Date Recorded Have you ever been in or are you currently in a harmful physical or emotional relationship or is someone making you feel afraid or unsafe? Denies 10/10/2024 Comments No Sex and Gender Information Value Date Recorded Sex Assigned at Not on file Legal Sex Female 1:41 PM [employer]PER[employer] Gender Identity Not on file Sexual Orientation Not on file Occupation Industry Job Start Date Job End Date DISABILITY Not on file Not on file Not on file Obstetrics History Para Term AB IAB SAB Ectopic Multiple Livin g Live Births 3 3 3 Date Outcome GA Total Labor Labor/2nd/3rd Weight Sex Type Anes PTL Guillermina A1 A5 Name Clin Term Term Term Last Filed Vital Signs Vital Sign Reading Time Taken Comments Blood Pressure 124/78 10/29/2024 1:23 PM [employer] Pulse 97 10/29/2024 1:23 PM [employer] Temperature 36.7 C (98.1 F) 10/29/2024 1:23 PM [employer] Respiratory Rate 16 10/29/2024 1:23 PM [employer]TENANCE Oxygen Saturation 98% 10/29/2024 1:23 PM [employer] Inhaled Oxygen Concentration - - Weight 80.7 kg (178 lb) 10/29/2024 1:23 PM [employer]TE[employer] Height 162.6 cm (5' 4 ) 10/29/2024 1:23 PM [employer]TE[employer] Body Mass Index 30.55 10/29/2024 1:23 PM [employer] Plan of Treatment Health Maintenance Due Date Last Done Comments DTaP/Tdap/Td Vaccine (1 - Tdap) 1969 Zoster Vaccine (1 of 2) 2008 Well Visit 65+ 03/29/2024 03/29/2023 Covid-19 Vaccine (4 - 2023-2 5 season) 2024 07/09/2022, 07/31/2021, 07/03/2021 Fall Risk Assessment 02/03/2025 02/04/2024, 03/29/20 Osteoporosis Screening-Bone Density Scan 02/22/2025 02/22/2023 Breast Cancer Screening-Mammogram 04/09/2025 04/09/2024, 04/06/2023, 10/07/2022, Additional history exists Depression Screening 10/29/2025 10/29/2024, 06/28/2024, 02/09/2024, Additional history exists Cervical Cancer Screening-Pa p and HPV 12/23/2027 12/22/2022 Colon Cancer Screening-Colonoscopy 10/28/2033 10/28/2023, 06/21/2019, 01/27/2017 Cervical Cancer Screening Discontinued 12/22/2022 Pneumococcal vaccine 65+ Completed 023, 07/11/2018, 04/07/2012 Hepatitis B Screening Completed 08/09/2023 Hepatitis C Screening Completed 08/09/2023, 022 Colon Cancer Screening-CT Colonography Discontinued 10/28/2023, 06/21/2019, 01/27/2017 Colon Cancer Screening-DNA Stool Discontinued 10/28/2023, 06/21/2019, 01/27/2017 Colon Cancer Screening-FIT Discontinued 10/28, 06/21/2019, 10/31/2018, Additional history exists Colon Cancer Screening-Sigmoidoscopy Discontinued 10/28/2023, 06/21/2019, 01/27/2017 Influenza Vaccine Completed 06/28/2024, , 06/25/2022, Additional history exists Goals Goal Patient Goal Type Associated Problems Recent Progress Patient-Stated? Author [facility] General Goal - Patient is knowledgeable about condition when worsening and how to respond ACO Care Management On track(2023 1:13 PM SUPER[employer]ILD[employer]INTENANCE) Rosa Gu, RN Note: Problem: Knowledge deficit related to [...] [facility]CO Care Management On track(2024 10:21 AM SUPERVISOR [employer]ILDING [employer]INTENANCE) No Bev Du, TAX REPRESENTATIVE Note: Problem: Need for Community Resources Interventions: - Provide patient/family with a list of appropriate resources for their specific need. - Help to coordinate resources. - Follow up to ensure patient/family has connected with the appropriate resources / personnel. CCM Chronic Pain Care Plan Chronic Care Management No Manjula Caal, DONATION WORKER Note: Problem: Chronic Pain Goals: 1. Minimize further functional decline 2. Maximize quality of life 3. Control pain Strategies: - Activity/exercise program recommendation - Conservative stepwise pain medicine strategy with multi-disciplinary approach - Recommend healthy lifestyle strategies and compensatory methods as needed Medical Devices Implanted Type Area Grip Device Identifier Shelf Expiration Date Model / Serial / Lot Left Foot Screws Foot Procedures Procedure Name Priority Date/Time Associated Diagnosis Comments ALBUMIN CREATININE RATIO, URINE Routine 10/24/2024 11:10 AM [employer] Hyperglycemia IRON PROFILE W/ IBC Routine 10/24/2024 1 1:07 AM [employer] Iron deficiency anemia due to chronic blood loss HEMOGLOBIN A1C Routine 10/24/2024 11:07 AM [employer] Hyperglycemia TROPONIN T HIGH-SENSITIVITY 2-HOUR Timed 10/10/2024 9:50 PM [employer]INTENANCE XR CHEST 1 VIEW ED 10/10/2024 8:17 PM [employer]TENANCE ECG 12-LEAD STAT 10/10/2024 8:07 PM SUPER[employer]ILD[employer]INTENANCE EGFR STAT 10/10/2024 7:55 PM [employer]INTENANCE DIFFERENTIAL AUTO STAT 10/10/2024 7:5 5 PM SUPER[employer]ILDING [employer]INTENANCE TROPONIN T HIGH-SENSITIVITY SERIES (BASELINE, 2HR, 4HR, 6HR) STAT 10/10/2024 7:55 PM SUPER[employer]ILDING [employer]INTENANCE COMPREHENSIVE METABOLIC PANEL STAT 10/10/2024 7:55 PM SUPER[employer]ILDING [employer]INTENANCE CBC WITH AUTO DIFFERENTIAL STAT 10/10/2024 7:55 PM SUPER[employer]ILD[employer]INTENANCE POCT GLUCOSE DEVICE Routine 09/23/2024 1 0:55 AM SUPER[employer]ILD[employer]INTENANCE POCT GLUCOSE DEVICE Routine 09/23/2024 9 :09 AM SU[employer]INTENANCE POCT GLUCOSE DEVICE Routine 09/23/2024 8 :39 AM SUPER[employer]ILD[employer]INTENANCE POCT GLUCOSE DEVICE Routine 09/23/2024 7 :57 AM SUPER[employer]INTENANCE POCT GLUCOSE DEVICE Routine 09/23/2024 7 :07 AM [employer]ILD[employer]INTENANCE URINALYSIS AND REFLEX TO MICROSCOPIC AND CULTURE STAT 09/23/2024 6:06 AM SUPERVISOR [employer]ILDING [employer]INTENANCE EGFR STAT 09/23/2024 5:06 AM SUPER[employer]ILDING [employer]INTENANCE DIFFERENTIAL AUTO STAT 09/23/2024 5:0 6 AM SUPER[employer]ILDING [employer]INTENANCE COMPREHENSIVE METABOLIC PANEL STAT 09/23/2024 5:06 AM SUPER[employer]ILDING [employer]INTENANCE CBC WITH AUTO DIFFERENTIAL STAT 09/23/2024 5:06 AM SUPER[employer]ILDING [employer]INTENANCE POCT GLUCOSE DEVICE Routine 09/23/2024 5 :04 AM SUPERVISOR BUILDING MAINTENANCE DIAGNOSTIC MAMMOGRAM BILATERAL W SUKUMAR Schedule Routine, Read Routine (OP Routine) 04/09/2024 8:33 AM CDT Follow-up examination of abnormal mammogram COLONOSCOPY 10/28/2023 3:01 PM SUPER[employer]ILD[employer]INTENANCE HEPATITIS C ANTIBODY Routine 08/09/2023 1:28 PM SUPER[employer]ILDING [employer]INTENANCE DEXA AXIAL SKELETON BONE DENSITY 1 OR MORE SITES Schedule Routine, Read Routine (OP Routine) 02/22/2023 10:45 AM CDT Chronic midline low back pain without sciatica Spondylolisthesis of lumbar region Sacroiliac joint pain Localized osteoporosis ([place]) PAP AND HIGH RISK HPV, REFLEX TO GENOTYPING Routine 12/22/2022 7:56 AM CDT Encounter for screening for malignant neoplasm of cervix from Last 3 Months or Most Recently Relevant to Health Maintenance Results * (ABNORMAL) Albumin Creatinine Ratio, Urine (10/24/2024 11:10 AM SUPERVISOR BUILDING MAINTENANCE) Albumin Ur <12.0 mg/L Comment: Interpretive Data No reference range established. Current interpretive data was last revised 2019. Testing performed by: [address] [id number] Creatinine Ur 33.4 mg/dL ROSAL[facility] HOLT Comment: Interpretive Data No reference range established. Current interpretive data was last revised 2019. Testing performed by: [address] [address] Albumin Creatinine Ratio, Ur <36(H) 1 - 29 mg/g ROSALBA Comment:Testing performed by : [address] [address] Urine 10/24/2024 11:1 0 AM [employer] 10/24/2024 11:54 AM SUPER[employer]OR [employer]ILD[employer]TENA[employer] us Haleigh Young MD LAB URINE ORDERABLE S Final Result [facility] [facility] [place] [address] * (ABNORMAL) Iron profile w/ IBC (10/24/2024 11:07 AM SUPERVISOR [employer]ILD[employer]INTENANCE) Iron 45 35 - 145 mcg/dL Comment:Testing performed by : [address] [address] TIBC 271 250 - 400 mcg/dL ROSALBA HOLT Comment:Testing performed by : [address] [address] Transferrin saturation 17(L) 20 - 50 % ROSALBA Comment:Testing performed by : [address] [address] Blood 10/24/2024 11:0 7 AM [employer]TE[employer]NCE 10/24/2024 11:53 AM SUPER[employer]OR [employer]ILD[employer]INTENANCE Haleigh Young MD LAB BLOOD ORDERABLE S Final Result Performing Organization Address [facility] Co de Phone Number ROSALBA [address] [place] [address] * Hemoglobin A1c (10/24/2024 11:07 AM SUPER[employer]OR [employer]ILD[employer]INTENANCE) Hgb A1C 5.4 4.0 - 5.6 % Comment:Testing performed by : [address] [address] Estimated Average Glucose 108 mg/dL ROSALBA HOLT Comment: The ADA recommends reporting an estimated Average Glucose (eAG) with all Hemoglobin A1c results using the equation derived from a study of 507 normal and diabetic adults. Minority populations were underrepresented and children were not included. (Diabetes Care 31:0967-0634, 2008). The eAG is not equivalent to a fasting glucose. Testing performed by: [address] [address] Blood 10/24/2024 11:0 7 AM [employer]TE[employer]NCE 10/24/2024 11:57 AM SUPERVISOR BUILDING [employer]INTENANCE Haleigh Young MD LAB BLOOD ORDERABLE S Final Result Performing Organization Address [facility] de Phone Number [place] [id number] [place] [address] * Troponin T high-sensitivity 2-hour (10/10/2024 9:50 PM SUPERVISOR BUILDING [employer]INTENANCE) Pathologist [facility] [place] Trop T hs 10 <=14 ng/L Comment: Interpretive Data For further hscTnT resources including the diagnostic algorithm and an aid in interpretation, copy and paste this link: https://nrl.testcatalog.org/show/hsTrop Current Interpretive Data last revised 2020. Testing performed by: [address] [address] Trop T hs delta -1 ng/L ROSALBA HOLT Comment:Testing performed by : [facility], [address] [place] [address]., [address] Trop T hs interp Insignificant ROSALBA HOLT Comment:Testing performed by : [facility], [address] [place] [address]., [address] Blood 10/10/2024 9:50 PM [employer]ILD[employer]CE 10/10/2024 10:02 PM SUPER[employer]OR [employer]TE[employer] us Jean Claude Matta Jr., MD LAB BLOOD ORDERABLES Fi nal Result ROSALBA HOLT [address] [facility] Department [place] [address] * XR Chest 1 Vw Portable (if patient condition/safety warrant portable) (10/10/2024 8:17 PM SUPERVISOR [employer]ILDING [employer]INTENANCE) Anatomical Region Laterality Modality Body, Chest N/A Computed Radiogr aphy 10/10/2024 9:08 PM SUPERVISOR [employer]ILDING [employer]INTENANCE Narrative 10/10/2024 9:11 PM SUPERVISOR [employer]ILDING [employer]INTENANCE EXAM DESCRIPTION: XR CHEST 1 VIEW REASON FOR STUDY: chest pain Patient states she has chest pain x6 hours TECHNIQUE: Single radiographic view of the chest. COMPARISON: 04/12/2024 04/24/2024 FINDINGS: Suboptimal examination due to patient positioning, rotation, and technique. Findings made within these confines. LINES/TUBES: None. LUNGS: Background of emphysematous changes and chronic scarring. No new focal consolidation. Obscuration of the right costophrenic angle could reflect atelectasis/scarring, or small pleural effusion. Unchanged 8 mm calcified right lower lobe pulmonary nodule, likely sequela of previous granulomatous disease. No definite pneumothorax. HEART/MEDIASTINUM: Unchanged cardiomediastinal contours when accounting for patient rotation. BONES/SOFT TISSUES: No acute osseous abnormality. Degenerative changes of the left glenohumeral joint with osseous remodeling of the left proximal humerus versus chronic deformity of the proximal left humerus. IMPRESSION: Suboptimal examination as above. Obscuration of the right costophrenic angle could reflect atelectasis/scarring or small pleural effusion. Background of emphysematous change and parenchymal scarring. THIS IS AN ELECTRONICALLY VERIFIED FINAL REPORT 10/10/2024 9:11 PM - Electronically signed by Ac Mcdonald M.D. NS: NS Report ID: [id number] Reading Location: [id number] Procedure Note Ac Mcdonald MD - 10/10/2024 EXAM DESCRIPTION: XR CHEST 1 VIEW REASON FOR STUDY: chest pain Patient states she has chest pain x6 hours TECHNIQUE: Single radiographic view of the chest. COMPARISON: 04/12/2024 04/24/2024 FINDINGS: Suboptimal examination due to patient positioning, rotation, andtechnique. Findings made within these confines. LINES/TUBES: None. LUNGS: Background of emphysematous changes and chronic scarring. No new focal consolidation. Obscuration of the right costophrenic angle could reflect atelectasis/scarring, or small pleural effusion. Unchanged 8 mm calcified right lower lobe pulmonary nodule, likely sequela of previous granulomatous disease. No definite pneumothorax. HEART/MEDIASTINUM: Unchanged cardiomediastinal contours when accountingfor patient rotation. BONES/SOFT TISSUES: No acute osseous abnormality. Degenerative changesof the left glenohumeral joint with osseous remodeling of the left proximal humerus versus chronic deformity of the proximal left humerus. IMPRESSION: Suboptimal examination as above. Obscuration of the right costophrenic angle could reflect atelectasis/scarring or small pleural effusion. Background of emphysematous change and parenchymal scarring. THIS IS AN ELECTRONICALLY VERIFIED FINAL REPORT 10/10/2024 9:11 PM - Electronically signed by Ac Mcdonald M.D. NS: NS Report ID: [id number] Reading Location: [id number] us Jean Claude Matta Jr., MD IMG XR PROCEDURES Final Result * ECG 12 lead (10/10/2024 8:07 PM SUPERVISOR [employer]TENANCE) Ventricular Rate EKG/Min 79 BPM [facility] Atrial Rate 79 BPM [facility] TX-Interval (MSEC) 170 ms [facility] QRS-Interval (MSEC) 72 ms [facility] QT-Interval (MSEC) 398 ms [facility] QTc 456 ms [facility] P [place] 57 degrees [facility] R [place] 21 degrees [facility] T [place] 27 degrees [facility] Diagnosis Normal sinus rhythm Normal ECG When compared with ECG of 03-FEB-2024 18:59, No significant change was found Confirmed by LYNDSAY GARLAND M.D. ([id number]) on 10/12/2024 12:10:20 PM [facility] 10/10/2024 8:07 PM SUPER[employer]OR [employer]ILD[employer]TENANCE 10/12/2024 12:10 PM SUPER[employer]OR [employer]ILD[employer]TENANCE us Jean Claude Matta Jr., MD ECG ORDERABLES Final R esult Performing Organization Address City/[facility]/ZIP Co de Phone Number [facility] * Troponin T high-sensitivity series (baseline, 2hr, 4hr, 6hr) (10/10/2024 7:55 PM SUPERVISOR BUILDING [employer]INTENANCE) Pathologist [facility] [place] Trop T hs 11 <=14 ng/L Comment: Interpretive Data For further hscTnT resources including the diagnostic algorithm and an aid in interpretation, copy and paste this link: https://nrl.testcatalog.org/show/hsTrop Current Interpretive Data last revised 2020. Testing performed by: [facility], [address] [place] [address]., [address] Blood 10/10/2024 7:55 PM SUPER[employer]OR [employer]ILD[employer]TENANCE 10/10/2024 8:03 PM SUPERVISOR [employer]TENAN[employer] us Jean Claude Matta Jr., MD LAB BLOOD ORDERABLES Fi nal Result ROSALBA [address] [facility] Department [place] [address] * eGFR (10/10/2024 7:55 PM SUPERVISOR BUILDING [employer]INTENANCE) [facility] eGFR >90 >=60 mL/min/1. 73 m2 Comment: Interpretive Data Reference Interval Normal >/= 90 mL/min/1.73m2 Mildly decreased* 60 - 89 mL/min/1.73m2 Mildly to moderately decreased 45 - 59 mL/min/1.73m2 Moderately to severely decreased 30 - 44 mL/min/1.73m2 Severely decreased 15 - 29 mL/min/1.73m2 Kidney Failure < 15 mL/min/1.73m2 *Relative to young adult level Estimated glomerular filtration rate is determined by the 2020 CKD-EPI equation recommended by the National Kidney Foundation (A Unifying Approach to GFR Estimation: Recommendations of the NKF-ASK Task Force on Reassessing the Inclusion of Race in Diagnosing Kidney Disease, JASN 2020). The CKD-EPI equation should not be used for patients with unstable renal function and has not been validated in children and those over 70. Current interpretive data was last reviewed 2021. Testing performed by: [address] [address] Blood 10/10/2024 7:55 PM SUPERVISOR [employer]ILDING [employer]INTENANCE 10/10/2024 8:03 PM SUPERVISOR [employer]ILD[employer]TENANCE us Jean Claude Matta Jr., MD LAB BLOOD ORDERABLES Fi nal Result ROSALBA [address] [facility] Department [place] [address] * Differential, auto (10/10/2024 7:55 PM SUPERVISOR [employer]ILDING [employer]INTENANCE) Neutrophil abs 4.6 1.5 - 6.5 K/cumm Comment:Testing performed by : [address] [address] Imm gran abs 0.0 0.0 - 0.1 K/cumm ROSALBA Comment:Testing performed by : [address] [address] Lymphocyte abs 1.5 0.8 - 3.3 K/cumm ROSALBA Comment:Testing performed by : [address] [address] Monocyte abs 0.7 0.2 - 0.8 K/cumm ROSALBA Comment:Testing performed by : [address] [address] Eosinophil abs 0.3 0.0 - 0.5 K/cumm ROSALBA Comment:Testing performed by : [address] [address] Basophil abs 0.0 0.0 - 0.1 K/cumm ROSALBA Comment:Testing performed by : [address] [address] Neutrophil pct 64.8 % [facility] Comment: Interpretive Data Percent cell count reference ranges are not reported, since discordance with absolute values may lead to misinterpretation of CBC data. Current Interpretive Data was last revised on 2017. Testing performed by: [address] [address] Imm gran pct 0.4 % [facility] Comment: Interpretive Data Percent cell count reference ranges are not reported, since discordance with absolute values may lead to misinterpretation of CBC data. Current Interpretive Data was last revised on 2017. Testing performed by: [address] [address] Lymphocyte pct 20.8 % [facility] Comment: Interpretive Data Percent cell count reference ranges are not reported, since discordance with absolute values may lead to misinterpretation of CBC data. Current Interpretive Data was last revised on 2017. Testing performed by: [address] [address] Monocyte pct 9.4 % [facility] Comment: Interpretive Data Percent cell count reference ranges are not reported, since discordance with absolute values may lead to misinterpretation of CBC data. Current Interpretive Data was last revised on 2017. Testing performed by: [address] [address] Eosinophil pct 4.2 % [facility] Comment: Interpretive Data Percent cell count reference ranges are not reported, since discordance with absolute values may lead to misinterpretation of CBC data. Current Interpretive Data was last revised on 2017. Testing performed by: [address] [address] Basophil pct 0.4 % [facility] Comment: Interpretive Data Percent cell count reference ranges are not reported, since discordance with absolute values may lead to misinterpretation of CBC data. Current Interpretive Data was last revised on 2017. Testing performed by: [address] [address] Blood 10/10/2024 7:55 PM SUPERVISOR [employer]ILDING [employer]INTENANCE 10/10/2024 8:03 PM SUPERVISOR [employer]INTENANCE us Jean Claude Matta Jr., MD LAB BLOOD ORDERABLES Fi nal Result [facility] [address] [facility] Department [place] [address] * (ABNORMAL) CBC with auto differential (10/10/2024 7:55 PM SUPERVISOR [employer]ILDING [employer]INTENANCE) WBC 7.1 3.8 - 9.9 K/cumm Comment:Testing performed by : [address] [address] Hgb 10.9(L) 11.9 - 15.5 g/dL ROSALBA Comment:Testing performed by : [address] [address] Hct 37.0 35.6 - 45.5 % ROSALBA Comment:Testing performed by : [address] [address] Plt 355 150 - 400 K/cumm ROSALBA Comment:Testing performed by : [address] [address] MPV 10.5 9.1 - 12.3 fL ROSALBA Comment:Testing performed by : [address] [address] RBC 5.01 3.90 - 5.20 M/cumm ROSALBA Comment:Testing performed by : [address] [address] MCV 73.9(L) 81.3 - 96.4 fL ORSALBA Comment:Testing performed by : [address] [address] MCH 21.8(L) 27.1 - 33.3 pg ROSALBA HOLT Comment:Testing performed by : [address] [address] MCHC 29.5(L) 32.3 - 35.7 g/dL ROSALBA HOLT Comment:Testing performed by : [address] [address] RDW CV 17.1(H) 11.1 - 14.9 % ROSALBA HOLT Comment:Testing performed by : [address] [address] RDW SD 44.8 35.7 - 48.1 fL ROSALBA HOLT Comment:Testing performed by : [address] [address] NRBC abs 0.00 0.00 - 0.01 K/cumm ROSALBA HOLT Comment:Testing performed by : [address], [place]., [address] Blood Venous blood specimen / Unknown 10/10/2024 7:55 PM SUPERVISOR [employer]ILD[employer]TENANCE 10/10/2024 8:03 PM SUPERVISOR [employer]TENANCE us Jean Claude Matta Jr., MD LAB BLOOD ORDERABLES Fi nal Result [facility] Department [place] [address] * (ABNORMAL) Comprehensive metabolic panel (10/10/2024 7:55 PM SUPERVISOR [employer]ILDING [employer]INTENANCE) Sodium 136 135 - 145 mmol/L Comment:Testing performed by : [address] [address] Potassium, pl 3.3 3.3 - 4.9 mmol/L ROSALBA HOLT Comment: Hemolyzed; Potassium value may be falsely elevated by as much as 1.0 mmol/L. Suggest redraw and reanalysis. Testing performed by: [address] [address] Chloride 99 97 - 110 mmol/L ROSALBA HOLT Comment:Testing performed by : [address] [address] CO2 23 22 - 32 mmol/L ROSALBA HOLT Comment:Testing performed by : [address] [address] Anion gap 14 2 - 15 mmol/L ROSALBA HOLT Comment:Testing performed by : [address] [place]., [address] BUN 4(L) 6 - 25 mg/dL [facility] Comment:Testing performed by : [address] [address] Creatinine 0.69 0.60 - 1.10 mg/dL ROSALBA Comment:Testing performed by : [address] [address] Glucose 118 70 - 199 mg/dL [facility] Comment: Interpretive Data Fasting glucose >/= 126 mg/dl is diagnostic for diabetes. Fasting is defined as no caloric intake for at least 8 hours. Fasting glucose between 100 mg/dl to 125 mg/dl is diagnostic of prediabetes. In a patient with classic symptoms of hyperglycemia or hyperglycemic crisis, a random glucose >/= 200 mg/dl is diagnostic for diabetes. In the absence of unequivocal hyperglycemia, results should be confirmed by repeat testing. The classification and Diagnosis of Diabetes Diabetes Care 2021; 46: S19-S40. Current interpretive data was last revised 2022. Testing performed by: [address] [address] Calcium 9.7 8.5 - 10.3 mg/dL [facility] Comment:Testing performed by : [address] [address] Bilirubin, total 0.4 0.1 - 1.2 mg/dL [facility] Comment:Testing performed by : [address] [address] Protein, pl 7.0 6.5 - 8.5 g/dL [facility] Comment:Testing performed by : [address] [address] Albumin 3.7 3.5 - 5.0 g/dL [facility] Comment:Testing performed by : [address] [address] Alk phos 124 40 - 130 Units/L ROSALBA Comment:Testing performed by : [address] [address] ALT 16 7 - 45 Units/L ROSALBA Comment:Testing performed by : [address] [address] AST 18 10 - 45 Units/L ROSALBA Comment: Hemolyzed; result may be falsely elevated Testing performed by: [address] [address] Blood 10/10/2024 7:55 PM SUPERVISOR [employer]ILDING [employer]TENANCE 10/10/2024 8:03 PM SUPERVISOR [employer]ILDING [employer]INTENANCE Jean Claude Matta Jr., MD LAB BLOOD ORDERABLES Fi nal Result Performing Organization Address [facility] Co de Phone Number BARBARA[address] [address] * POCT glucose (09/23/2024 10:55 AM SUPERVISOR BUILDING [employer]INTENANCE) Glucose, POC 92 70 - 199 mg/dL Comment:Testing performed by : [address] [address] Glucose comment 1 Use This Result ROSALBA Comment:Testing performed by : [address] [address] Blood 09/23/2024 10:5 5 AM SUPERVISOR [employer]ILDING [employer]INTENANCE 09/23/2024 10:55 AM SUPERVISOR BUILDING MAINTENANCE Sushant Ramirez DO LAB POCT ORDERABLES - DEVICE F inal Result Performing Organization Address [facility] de Phone Number [address] [address] * POCT glucose (09/23/2024 9:09 AM SUPERVISOR BUILDING MAINTENANCE) Glucose, POC 103 70 - 199 mg/dL Comment:Testing performed by : [address] [address] Glucose comment 1 Use This Result ROSALBA Comment:Testing performed by : [address] [address] Blood 09/23/2024 9:09 AM SUPERVISOR BUILDING MAINTENANCE 09/23/2024 9:09 AM SUPERVISOR BUILDING MAINTENANCE Sushant Ramirez DO LAB POCT ORDERABLES - DEVICE F inal Result Performing Organization Address [facility] Co de Phone Number ROSALBA [address] [address] * POCT glucose (09/23/2024 8:39 AM SUPERVISOR BUILDING MAINTENANCE) Glucose, POC 96 70 - 199 mg/dL Comment:Testing performed by : [address] [address] Glucose comment 1 Use This Result ROSALBA Comment:Testing performed by : [address] [address] Blood 09/23/2024 8:39 AM SUPERVISOR BUILDING MAINTENANCE 09/23/2024 8:39 AM SUPERVISOR BUILDING MAINTENANCE Sushant Ramirez DO LAB POCT ORDERABLES - DEVICE F inal Result Performing Organization Address [facility] de Phone Number BARBARA[address] [address] * POCT glucose (09/23/2024 7:57 AM SUPERVISOR BUILDING MAINTENANCE) Glucose, POC 91 70 - 199 mg/dL Comment:Testing performed by : [address] [address] Glucose comment 1 Use This Result ROSALBA Comment:Testing performed by : [address] [address] Blood 09/23/2024 7:57 AM SUPERVISOR BUILDING MAINTENANCE 09/23/2024 7:57 AM SUPERVISOR BUILDING MAINTENANCE Sushant Ramirez DO LAB POCT ORDERABLES - DEVICE F inal Result Performing Organization Address [facility] de Phone Number [address] [address] * (ABNORMAL) POCT glucose (09/23/2024 7:07 AM SUPERVISOR BUILDING MAINTENANCE) Glucose, POC 49(C) 70 - 199 mg/dL Comment:Testing performed by : [address] [address] Glucose comment 1 Use This Result ROSALBA HOLT Comment:Testing performed by : [address] [address] Blood 09/23/2024 7:07 AM SUPERVISOR BUILDING [employer]INTENANCE 09/23/2024 7:07 AM SUPERVISOR BUILDING [employer]INTENANCE us Sushant James DO LAB POCT ORDERABLES - DEVICE F inal Result ROSALBA [address] [facility] [place] [address] * Urinalysis reflex to microscopic and culture Urine (09/23/2024 6:06 AM SUPERVISOR [employer]ILDING [employer]INTENANCE) Color, ur Straw Yellow Comment:Testing performed by : [address] [address] Clarity, ur Clear Clear ROSALBA Comment:Testing performed by : [address] [address] Specific gravity, ur 1.009 1.003 - 1.030 ROSALBA Comment:Testing performed by : [address] [address] pH, urine 6.5 ROSALBA Comment: Interpretive Data U rine pH is affected by diet, medications, systemic acid-base disturbances, and renal tubular function. pH may affect urinary stone formation. For example, urine pH below 6.0 may help reduce the tendency for calcium phosphate stones and pH greater than 6.0 may reduce the tendency for uric acid stone formation. Source: [facility] [employer] Current Interpretive Data was last revised on 2017 Testing performed by: [address] [address] Protein, ur ql Negative Negative ROSALBA HOLT Comment:Testing performed by : [address] [address] Glucose, ur ql Negative Negative ROSALBA HOLT Comment:Testing performed by : [address] [address] Ketones, ur Negative Negative ROSALBA HOLT Comment:Testing performed by : [address] [address] Bilirubin, ur Negative Negative ROSLABA HOLT Comment:Testing performed by : [facility], [address] [place] [address], [place]., [address] Blood, ur Negative Negative ROSALBA HOLT Comment:Testing performed by : [facility], [address] [place] [address], [place]., [address] Urobilinogen, ur <2.0 <2.0 mg/dL ROSALBA HOLT Comment:Testing performed by : [address], [place]., [address] Nitrite, ur Negative Negative ROSALBA Comment:Testing performed by : [address], [place]., [address] Leukocyte esterase, ur Negative Negative ROSALBA Comment:Testing performed by : [address], [place]., [address] UA reflex comment Reflex conditions for microscopic UA and culture not met. ROSALBA HOLT Comment:Testing performed by : [address], [place]., [address] Urine 09/23/2024 6:06 AM SUPERVISOR [employer]ILDING [employer]INTENANCE 09/23/2024 6:09 AM SUPERVISOR [employer]ILDING [employer]INTENANCE us Jean Claude Matta Jr., MD LAB MICROBIOLOGY - GENE RAL ORDERABLES Final Result ROSALBA HOLT [address] [facility] [place] [address] * eGFR (09/23/2024 5:06 AM SUPERVISOR [employer]ILD[employer]INTENANCE) eGFR 81 >=60 mL/min/1. 73 m2 Comment: Interpretive Data Reference Interval Normal >/= 90 mL/min/1.73m2 Mildly decreased* 60 - 89 mL/min/1.73m2 Mildly to moderately decreased 45 - 59 mL/min/1.73m2 Moderately to severely decreased 30 - 44 mL/min/1.73m2 Severely decreased 15 - 29 mL/min/1.73m2 Kidney Failure < 15 mL/min/1.73m2 *Relative to young adult level Estimated glomerular filtration rate is determined by the 2020 CKD-EPI equation recommended by the National Kidney Foundation (A Unifying Approach to GFR Estimation: Recommendations of the NKF-ASK Task Force on Reassessing the Inclusion of Race in Diagnosing Kidney Disease, JASN 2020). The CKD-EPI equation should not be used for patients with unstable renal function and has not been validated in children and those over 70. Current interpretive data was last reviewed 2021. Testing performed by: [address] [address] Blood 09/23/2024 5:06 AM SUPERVISOR BUILDING [employer]INTENANCE 09/23/2024 5:10 AM SUPERVISOR [employer]ILD[employer]INTENANCE us Jean Claude Matta Jr., MD LAB BLOOD ORDERABLES Fi nal Result [facility] [address] [facility] [place] [address] * (ABNORMAL) Differential, auto (09/23/2024 5:06 AM SUPERVISOR [employer]ILDING [employer]INTENANCE) Neutrophil abs 6.8(H) 1.5 - 6.5 K/cumm Comment:Testing performed by : [address] [address] Imm gran abs 0.1 0.0 - 0.1 K/cumm ROSALBA Comment:Testing performed by : [address] [address] Lymphocyte abs 0.8 0.8 - 3.3 K/cumm ROSALBA Comment:Testing performed by : [address] [address] Monocyte abs 0.6 0.2 - 0.8 K/cumm ROSALBA Comment:Testing performed by : [address] [address] Eosinophil abs 0.0 0.0 - 0.5 K/cumm ROSALBA Comment:Testing performed by : [address] [address] Basophil abs 0.0 0.0 - 0.1 K/cumm ROSALBA Comment:Testing performed by : [address] [address] Neutrophil pct 81.8 % ROSALBA Comment: Interpretive Data Percent cell count reference ranges are not reported, since discordance with absolute values may lead to misinterpretation of CBC data. Current Interpretive Data was last revised on 2017. Testing performed by: [address] [address] Imm gran pct 0.7 % CERNER Comment: Interpretive Data Percent cell count reference ranges are not reported, since discordance with absolute values may lead to misinterpretation of CBC data. Current Interpretive Data was last revised on 2017. Testing performed by: [address] [address] Lymphocyte pct 9.3 % CERNER Comment: Interpretive Data Percent cell count reference ranges are not reported, since discordance with absolute values may lead to misinterpretation of CBC data. Current Interpretive Data was last revised on 2017. Testing performed by: [address] [address] Monocyte pct 7.7 % [facility] Comment: Interpretive Data Percent cell count reference ranges are not reported, since discordance with absolute values may lead to misinterpretation of CBC data. Current Interpretive Data was last revised on 2017. Testing performed by: [address] [address] Eosinophil pct 0.5 % [facility] Comment: Interpretive Data Percent cell count reference ranges are not reported, since discordance with absolute values may lead to misinterpretation of CBC data. Current Interpretive Data was last revised on 2017. Testing performed by: [address] [address] Basophil pct 0.0 % [facility] Comment: Interpretive Data Percent cell count reference ranges are not reported, since discordance with absolute values may lead to misinterpretation of CBC data. Current Interpretive Data was last revised on 2017. Testing performed by: [address] [address] Blood 09/23/2024 5:06 AM SUPERVISOR BUILDING MAINTENANCE 09/23/2024 5:10 AM SUPERVISOR BUILDING MAINTENANCE us Jean Claude Matta Jr., MD LAB BLOOD ORDERABLES Fi nal Result [facility] [address] [facility] [place] [address] * (ABNORMAL) CBC with auto differential (09/23/2024 5:06 AM SUPERVISOR BUILDING MAINTENANCE) WBC 8.3 3.8 - 9.9 K/cumm Comment:Testing performed by : [address] [address] Hgb 12.5 11.9 - 15.5 g/dL [facility] Comment:Testing performed by : [address] [address] Hct 41.7 35.6 - 45.5 % [facility]BA Comment:Testing performed by : [address] [address] Plt 207 150 - 400 K/cumm ROSALBA Comment:Testing performed by : [address] [address] MPV 11.7 9.1 - 12.3 fL [facility] Comment:Testing performed by : [address] [address] RBC 5.66(H) 3.90 - 5.20 M/cumm ROSALBA Comment:Testing performed by : [address] [address] MCV 73.7(L) 81.3 - 96.4 fL [facility] Comment:Testing performed by : [address] [address] MCH 22.1(L) 27.1 - 33.3 pg [facility] Comment:Testing performed by : [address] [address] MCHC 30.0(L) 32.3 - 35.7 g/dL [facility] Comment:Testing performed by : [address] [address] RDW CV 18.3(H) 11.1 - 14.9 % [facility] Comment:Testing performed by : [address] [address] RDW SD 45.1 35.7 - 48.1 fL [facility] Comment:Testing performed by : [address] [address] NRBC abs 0.00 0.00 - 0.01 K/cumm ROS[facility] Comment:Testing performed by : [address] [address] Blood 09/23/2024 5:06 AM SUPERVISOR BUILDING MAINTENANCE 09/23/2024 5:10 AM SUPERVISOR BUILDING MAINTENANCE us Jean Claude Matta Jr., MD LAB BLOOD ORDERABLES Fi nal Result [facility] [address] [facility] Department [place] [address] * (ABNORMAL) Comprehensive metabolic panel (09/23/2024 5:06 AM SUPERVISOR BUILDING MAINTENANCE) Sodium 139 135 - 145 mmol/L Comment:Testing performed by : [address] [address] Potassium, pl 3.4 3.3 - 4.9 mmol/L [facility] Comment:Testing performed by : [address] [address] Chloride 103 97 - 110 mmol/L [facility] Comment:Testing performed by : [address] [address] CO2 24 22 - 32 mmol/L [facility] Comment:Testing performed by : [address] [address] Anion gap 12 2 - 15 mmol/L [facility] Comment:Testing performed by : [address] [address] BUN 26(H) 6 - 25 mg/dL [facility] Comment:Testing performed by : [address] [address] Creatinine 0.80 0.60 - 1.10 mg/dL [facility] Comment:Testing performed by : [address] [address] Glucose 77 70 - 199 mg/dL [facility] Comment: Interpretive Data Fasting glucose >/= 126 mg/dl is diagnostic for diabetes. Fasting is defined as no caloric intake for at least 8 hours. Fasting glucose between 100 mg/dl to 125 mg/dl is diagnostic of prediabetes. In a patient with classic symptoms of hyperglycemia or hyperglycemic crisis, a random glucose >/= 200 mg/dl is diagnostic for diabetes. In the absence of unequivocal hyperglycemia, results should be confirmed by repeat testing. The classification and Diagnosis of Diabetes Diabetes Care 2021; 46: S19-S40. Current interpretive data was last revised 2022. Testing performed by: [address] [address] Calcium 9.5 8.5 - 10.3 mg/dL [facility] Comment:Testing performed by : [address] [address] Bilirubin, total 0.5 0.1 - 1.2 mg/dL [facility] Comment:Testing performed by : [address] [address] Protein, pl 7.0 6.5 - 8.5 g/dL [facility] Comment:Testing performed by : [address] [address] Albumin 3.7 3.5 - 5.0 g/dL [facility] Comment:Testing performed by : [address] [address] Alk phos 82 40 - 130 Units/L [facility] Comment:Testing performed by : [address] [address] ALT 11 7 - 45 Units/L [facility] Comment:Testing performed by : [address] [address] AST 11 10 - 45 Units/L [facility] Comment:Testing performed by : [address] [address] Blood 09/23/2024 5:06 AM SUPERVISOR BUILDING MAINTENANCE 09/23/2024 5:10 AM SUPERVISOR BUILDING MAINTENANCE us Jean Claude Matta Jr., MD LAB BLOOD ORDERABLES Fi nal Result [facility] [address] [place] [address] * POCT glucose (09/23/2024 5:04 AM SUPERVISOR BUILDING MAINTENANCE) Glucose, POC 71 70 - 199 mg/dL Comment:Testing performed by : [facility], [address] [place] [address]., [address] Glucose comment 1 Use This Result [facility] HOLT Comment:Testing performed by : [address] [address] Glucose comment 2 RN/MD Notified [facility] HOLT Comment:Testing performed by : [address] [address] Blood 09/23/2024 5:04 AM SUPERVISOR BUILDING MAINTENANCE 09/23/2024 5:04 AM SUPERVISOR BUILDING MAINTENANCE us Notinfile Unknown LAB POCT ORDERABLES - DEVICE F inal Result [facility] [address] [place] [address] * Diagnostic Mammogram Bilateral W Sukumar (04/09/2024 8:33 AM CDT) Anatomical Region Laterality Modality Breast Bilateral Mammography 04/09/2024 8:52 AM CDT Narrative 04/09/2024 8:59 AM CDT EXAM DESCRIPTION: US BREAST BILATERAL LIMITED; DIAGNOSTIC MAMMOGRAM BILATERAL W SUKUMAR REASON FOR STUDY: 63-year-old woman comes in today for follow-up of probably benign findings in both breasts. COMPARISON: Diagnostic mammogram and sonogram dated 04/06/2023, 10/07/2022, 04/05/2022. Screening mammogram dated 02/23/2022. FINDINGS: CC and MLO digital breast tomosynthesis of both breasts with C view was performed. Targeted sonographic examination of both breasts was also performed with real-time grayscale images and color Doppler. FINDINGS: MAMMOGRAPHIC FINDINGS: DENSITY: The breasts are almost entirely fatty. BREASTS: The small probably benign mass of concern previously seen at the 10 o'clock position of the right breast anterior depth has markedly decreased in size, and is nearly imperceptible. No new suspicious findings identified in the right breast. The small oval low-density mass with circumscribed margins at approximately the 9 o'clock position of the left breast anterior depth has not suspiciously changed in size or appearance. No new suspicious findings identified in the left breast. ULTRASOUND FINDINGS: Targeted sonographic examination of the right breast at the 10 o'clock position 5 cm from the nipple demonstrates no suspicious findings. The probably benign mass of concern previously seen at this level is no longer identified. This is in keeping with marked decrease in size on mammogram. Targeted sonographic examination of the left breast at the 9:30 o'clock position 5 cm from the nipple demonstrates a small lobular mass with circumscribed margins, measuring 4 x 3 x 4 mm. The mass has an unchanged mixed anechoic and hypoechoic internal echo pattern, no posterior acoustic enhancement or shadowing, and no internal blood flow on color Doppler. IMPRESSION: 1. The mass of concern at the 10 o'clock position of the right breast anterior depth has markedly decreased in size on mammogram, and is no longer seen on mammogram. The probably benign mass of concern at the 9:30 o'clock position of the left breast 5 cm from the nipple has not suspiciously changed. These findings are now considered benign, and no additional specific workup or follow-up is required. Continued monthly breast self-examination is recommended, and annual bilateral screening mammography in 12 months. BIRADS: 2 - Benign The patient was notified of the results and recommendations at the time of the examination. THIS IS AN ELECTRONICALLY VERIFIED FINAL REPORT 04/09/2024 8:59 AM - Electronically signed by Gen Anderson M.D. RL: REBECCA Report ID: [id number] Reading Location: MAMME us Haleigh Young MD IMG MAMMO PROCEDURE S Final Result * COLONOSCOPY (10/28/2023 3:01 PM SUPERVISOR BUILDING MAINTENANCE) Anatomical Region Laterality Modality Other Narrative Procedure Note Jammie Burdick MD - 10/28/2023 3:01 PM CST [facility] END[facility]COPY Patient Name: Dipti Luna Procedure Date: 10/28/2023 3:01 PM Date of : 1960 Admit Type: Outpatient Age: 63 Gender: Female Attending MD: Jammie Burdick M.D. Room: [facility] ENDOSCOPY ROOM 06 Note Status: Finalized Procedure: Colonoscopy Indications: Abdominal pain in the left lower quadrant Referring MD: Providers: Jammie Burdick M.D. Medicines: See the Anesthesia note for documentation of the administered medications Complications: No immediate complications. Estimated Blood Loss: Estimated blood loss: none. Procedure: Pre-Anesthesia Assessment: - Prior to the procedure, a History and Physicalwas performed, and patient medications, allergies and sensitivities were reviewed. The patient'stolerance of previous anesthesia was reviewed. - The risks and benefits of the procedure and the sedation options and risks were discussed with the patient. All questions were answered and informed consent was obtained. The benefits, risks and alternatives of theprocedure and sedation were discussed and informed consentwas obtained. All questions were answered. Please referto the signed informed consent document in the medical record. The scope was passed under direct vision.The [id number] colonoscope was introduced through theanus and advanced to the cecum, identified byappendiceal orifice and ileocecal valve. The colonoscopy was performed without difficulty. The patient tolerated the procedure well. The quality of the bowel preparation was fair. The ileocecal valve,appendiceal orifice, and rectum were photographed. Prep was administered in a single dose. Findings: The perianal and digital rectal examinations were normal. Pertinent negatives include normal sphincter tone. Multiple large-mouthed diverticula were found in the left colon. Two sessile polyps were found in the sigmoid colon and ascendingcolon. The polyps were 7 to 12 mm in size. These polyps were removed with a cold snare. Resection and retrieval were complete. The retroflexed view of the distal rectum and anal verge was normaland showed no anal or rectal abnormalities. Impression: - Preparation of the colon was fair. - Diverticulosis in the left colon. - Two 7 to 12 mm polyps in the sigmoid colon and in the ascending colon, removed with a cold snare. Resected and retrieved. - The distal rectum and anal verge are normal on retroflexion view. Recommendation: - Resume previous diet. - Continue present medications. - Await pathology results. Jammie Burdick M.D. Jammie Burdick M.D. 10/28/2023 3:54:50 PM . Number of Addenda: 0 Note Initiated On: 10/28/2023 3:01 PM Recognized by the [place] [employer] for promoting quality in endoscopy Jammie Burdick MD ENDOSCOPY PROCEDURES Tash l Result * Hepatitis C antibody Blood (08/09/2023 1:28 PM SUPERVISOR BUILDING MAINTENANCE) Hep C Ab Nonreactive Nonreactive [facility] Comment: Interpretive Data Nonreactive: Antibodies to HCV not detected. Does NOT exclude the possibility of recent exposure to HCV. Equivocal: Equivocal for HCV antibodies. Supplemental molecular testing will be automatically performed to determine infection status in accordance with current CDC screening recommendations. Reactive: Positive for HCV antibodies. This may represent current or past HCV infection. Supplemental molecular testing will be automatically performed to determine current infection status in accordance with current CDC screening recommendations. Interpretive data was last revised on 2019. Blood 08/09/2023 1:28 PM SUPERVISOR BUILDING MAINTENANCE 08/09/2023 6:31 PM SUPERVISOR BUILDING MAINTENANCE us Jammie Burdick MD LAB MICROBIOLOGY - GENERA L ORDERABLES Final Result [facility] [address] [facility] [place] [address] * DEXA Axial Skeleton Bone Density Multi Site (02/22/2023 10:45 AM CDT) Anatomical Region Laterality Modality Body N/A Mammography 02/22/2023 3:45 PM CDT Narrative 02/22/2023 3:45 PM CDT EXAM DESCRIPTION: DEXA AXIAL SKELETON BONE DENSITY 1 OR MORE SITES REASON FOR STUDY: 62 y/o year old F with given history of screening. Grip/Model: WeLab A (S/N [id number]) CLINICAL INFORMATION: Current height: 64 inches Maximum height: 66 inches Weight: 201 pounds Risk factors: None COMPARISON: None available FINDINGS: AP LUMBAR SPINE L1-L4: Total BMD is 0.693 g/cm2 T-score is -3.2 LEFT HIP: Total BMD is 0.750 g/cm2 T-score is -1.6 Femoral neck BMD is 0.592 g/cm2 T-score is -2.3 FRAX: FRAX not reported due to T-scores of hip, femoral neck and/or spine being at or below -2.5 (Osteoporosis). IMPRESSION: Osteoporosis REFERENCE: Bone mineral density: Normal (T-score above or = -1.0) Low bone mass (T-score between -1.0 and -2.5) replaces the previously used term osteopenia Osteoporosis (T-score = or below -2.5) Medical evaluation for secondary causes of low bone mineral density may be appropriate. FRAX is a World Health Organization validated fracture risk assessment tool that calculates a person's 10 year probability of a major osteoporosis related fracture and hip fracture. According to the National Osteoporosis Foundation guidelines, postmenopausal women and men age 50 or older with low bone mass and a 10 year probability of a major osteoporosis related fracture = or greater than 20% or a 10 year probability of a hip fracture = or greater than 3% should be considered for treatment. For further information, including treatment recommendations, please refer to the 2019 ISCD Official Positions (http://www.iscd.org) and the NOF's Clinician's Guide to Prevention and Treatment of Osteoporosis (http://www.nof.org/professionals/clinical-guidelines) THIS IS AN ELECTRONICALLY VERIFIED FINAL REPORT 02/22/2023 3:45 PM - Electronically signed by Elodia Recinos M.D. TW: TW Report ID: [id number] Reading Location: [id number] Procedure Note Elodia Recinos MD - 02/22/2023 EXAM DESCRIPTION: DEXA AXIAL SKELETON BONE DENSITY 1 OR MORE SITES REASON FOR STUDY: 62 y/o year old F with given history of screening. Grip/Model: WeLab A (S/N [id number]) CLINICAL INFORMATION: Current height: 64 inches Maximum height: 66 inches Weight: 201 pounds Risk factors: None COMPARISON: None available FINDINGS: AP LUMBAR SPINE L1-L4: Total BMD is 0.693 g/cm2 T-score is -3.2 LEFT HIP: Total BMD is 0.750 g/cm2 T-score is -1.6 Femoral neck BMD is 0.592 g/cm2 T-score is -2.3 FRAX: FRAX not reported due to T-scores of hip, femoral neck and/or spine beingat or below -2.5 (Osteoporosis). IMPRESSION: Osteoporosis REFERENCE: Bone mineral density: Normal (T-score above or = -1.0) Low bone mass (T-score between -1.0 and -2.5) replaces thepreviously used term osteopenia Osteoporosis (T-score = or below -2.5) Medical evaluation for secondary causes of low bone mineral density may be appropriate. FRAX is a World Health Organization validated fracture risk assessmenttool that calculates a person's 10 year probability of a major osteoporosisrelated fracture and hip fracture. According to the National OsteoporosisFoundation guidelines, postmenopausal women and men age 50 or older with low bonemass and a 10 year probability of a major osteoporosis related fracture = or greater than 20% or a 10 year probability of a hip fracture = or greaterthan 3% should be considered for treatment. For further information, including treatment recommendations, please referto the 2019 ISCD Official Positions (http://www.iscd.org) and the NOF's Clinician's Guide to Prevention and Treatment of Osteoporosis (http://www.nof.org/professionals/clinical-guidelines) THIS IS AN ELECTRONICALLY VERIFIED FINAL REPORT 02/22/2023 3:45 PM - Electronically signed by Elodia Recinos M.D. TW: TW Report ID: [id number] Reading Location: [place] [address] [address] Stewart DONATION WORKER IMG DXA PROCEDURES Final Result * Pap and High Risk HPV, reflex to Genotyping (12/22/2022 7:56 AM CDT) Thin prep (Pap test) 12/22/2022 7:56 AM CDT 12/23/2022 7:56 AM CDT Narrative PATHOLOGY [facility] - 12/28/2022 11:38 AM CDT [facility] Department of Pathology [address] [place] [address] Final Report with Addendum Note to Patients: This report may contain a detailed description of human tissue sent by a health care provider to the laboratory for pathologic evaluation. The content of this report is essential for diagnosis and may provide important critical findings. This information may be unfamiliar to patients to review without a medical professional present. It is advised that the patient review this report in the presence of a health care provider who can answer questions and explain the details. Patient Name: DIPTI LUNA Address: [address] [place] [address], [address] [place] [address] Gender: F : 1960 (Age: 62) [id number] Patient Type: [facility] SPECIMEN Taken: 12/22/2022 Received: 12/23/2022 Accessioned:: 12/24/2022 Reported: 12/28/2022 Physician(s): Nia Alfred M.D. [facility] Diagnosis: SOURCE OF SPECIMEN SCREENING THIN PREP IMAGED PAP w/ HPV: STATEMENT OF ADEQUACY - Specimen satisfactory for evaluation (vaginal pap) GENERAL CATEGORIZATION: - Negative for intraepithelial lesion or malignancy LEANDRO Golden(ASCP) Report Electronically Reviewed and Signed Out By LEANDRO Golden(ASCP) 12/28/2022 11:38:28Addenda: HPV Test Interpretation NEGATIVE for types 16, 18, 31, 33, 35, 39, 45, 51, 52, 56, 58, 59, 66 and 68. Test performed utilizing Gen-Probe Aptima assay. LEANDRO Golden(ASCP)Report Electronically Reviewed and Signed Out By CJ GoldenASCP) 12/27/2022 09:52:45 Specimen(s) Received: A: SCREENING THIN PREP IMAGED PAP w/ HPV Clinical History: Menstrual History: Hysterectomy Clinical History: Vaginal source The Pap test is a screening test used to aid in the detection of cervical cancer and its precursors. It should not be the sole means by which malignant and premalignant lesions are diagnosed. Both false negative and false positive results may occur. It also has poor sensitivity for the detection of endometrial lesions and should not be used to evaluate suspected endometrial abnormalities. For these reasons it is most important to obtain Pap tests at regular intervals. The performance characteristics of some immunohistochemical stains, fluorescence in-situ hybridization tests and immunophenotyping by flow cytometry cited in this report (if any) were determined by the Surgical Pathology Department at [facility] as part of an ongoing senior supplier quality engineer program and in compliance with federally mandated regulations drawn from the Clinical Laboratory Improvement Act of 1988 (CLIA '88). Some of these tests rely on the use of analyte specific reagents and are subject to specific labeling requirements by the US Food and Drug Administration. Such diagnostic tests may only be performed in a facility that is certified by the Department of Health and Human Services as a high complexity laboratory under CLIA '88. The FDA has determined that such clearance or approval is not necessary. This test is used for clinical purposes. It should not be regarded as investigational or for research. Nevertheless, federal rules concerning the medical use of analyte specific reagents require that the following disclaimer be attached to the report: This test was developed and its performance characteristics determined by the Surgical Pathology Department [facility]. It has not been cleared or approved by the U. S. Food and Drug Administration. Nia Alfred MD LAB CYTOLOGY ORDERABLES F inal Result [facility] from Last 3 Months or Most Recently Relevant to Health Maintenance Insurance [facility] [employer] [facility] [employer] Advance Directives For more information, please contact: [phone] Documents on File Type Date Recorded Patient Mold Forms Builder Expl anation ADVANCE DIRECTIVE 02/01/2024 1:59 PM POLST - Phys Order for PT Preferences ADVANCE DIRECTIVE 01/30/2024 1:03 PM Power of Division Supervisor-Medical ADVANCE DIRECTIVE 06/02/2022 12:57 PM Jami r of Division Supervisor-Medical ADVANCE DIRECTIVE 06/02/2022 12:56 PM Yoon ng Will * LIMITED - No CPR (Latest Code Status on File) Date Activated Date Inactivated Comments 02/01/2024 1:55 PM 02/04/2024 4:51 PM * Full Code Date Activated Date Inactivated Comments 01/28/2024 11:17 PM 02/01/2024 1:55 PM * Full Code Date Activated Date Inactivated Comments 06/24/2022 5:32 PM 06/25/2022 9:38 PM * Full Code Date Activated Date Inactivated Comments 05/31/2022 2:29 PM 06/02/2022 10:04 PM * Full Code Date Activated Date Inactivated Comments 05/27/2022 4:56 PM 05/31/2022 2:29 PM Care Teams Day Treatment Clinician/Art Therapist Relationship Specialty Start Date End Date Haleigh Young MD [address] [place], [place] [id number] PCP - General Family Medicine 11/24/21 Luis Saunders MD Referring Physician Gastroenterology 07/31/18 Jammie Burdick MD Referring Physician Gastroenterology 07/31/18 Ervin Garcia MD [address] [facility] [address] [place] [address] Consulting Physician Pulmonary Disease 07/08/20 Jean Carlos Berrios MD [address] [place] [address] Referring Physician Obstetrics and Gynecology 02/23/22 Rosa Herr, MIRTA [address] [place] [address] [facility] [address] [place] [address] Lens Inserter 06/03/22 Braden Sherwood DO [address] [facility] [place] [address] Referring Physician Psychiatry 06/04/22 Ladonna Martinez, COLLIN [address] [facility] [place] [address] Nurse Practitioner Nurse Practitioner 10/31/23 Kamlia Witt NP [address] [place] [address] [place] [address] Nurse Practitioner Hospice and Palliative Medicine 03/01/24
--- OUTSIDE RECORDS SUMMARY | 2024-11-23 19:48 | XMS_ITS | Patient Health Summary ---
Author Organization [facility] [employer] Address [address] [place] [address] Care Team Providers Care Bench Scientist Name Role Phone Maya Mcclain MD Primary Care Provider [phone] Note from [facility],non-owned Affiliates and Associated Physician Practices is amultiple site organization consisting of ambulatory clinics and hospital sitesin [place], [place], [place]. This disclosure is being madepursuant to the Care Everywhere program and may not contain all information available regarding this patient. Last updated 18.[facility] Allergies * Codeine(Anaphylaxis,Angioedema,Urticaria,Swelling,Unknown) -High Criticality Medications * [...] mg by mouth 2 times daily * Tcpnlxzuhsy-Ztzzanptc-Jqjewz (TRELEGY ELLIPTA) 100-62.5-25 MCG/INH Inhale 1 puff [...] 11/12/2012) Results * DERMATOPATHOLOGY (10/14/2023 3:33 AM DRYING TUNNEL OPERATOR) Case Report Dermatopathology Report Case: [id number] Authorizing Provider: Ketan Sheppard MD Collected: 10/14/2023 03:33 AM Ordering Location: [facility] DermPath Lab Received: 10/17/2023 02:24 PM Pathologist: Ruby Licona MD Specimen: Skin, left buttock 4:27 PM DRYING TUNNEL OPERATOR DERMATOPATHOLOGY LABORATORY Final Diagnosis Specimen A. SKIN, left buttock: EPIDERMAL NECROSIS SUGGESTIVE OF EXCORIATION (L98.499) (see microscopic description) 4 4:27 PM [facility] DERMATOPATHOLOGY LABORATORY Clinical History Atopic dermatitis vs contact dermatitis other vs scabies 4 4:27 PM [facility] DERMATOPATHOLOGY LABORATORY Gross Description Specimen A: Received is one formalin filled container labeled with the patient's name and designated left buttock. The specimen consists of a punch biopsy measuring 4x4x4 mm, bisected. Jar 0. 4 4:27 PM [facility] DERMATOPATHOLOGY LABORATORY Microscopic Description Specimen A. SKIN, left buttock: The epidermis is focally necrotic and covered with a scale-crust. There is fibrin at the base. Additional deeper sections were obtained and reviewed. Grocott's methenamine silver (GMS) stain is negative for fungal elements in the sections examined. 4:27 PM [facility] DERMATOPATHOLOGY LABORATORY Disclaimer An external and internal positive and negative controls are appropriate for the histochemical, immunohistochemical and immunofluorescence stain(s) in this case (if any), except where stated explicitly. The performance characteristics of the stain(s) cited in this report were developed and its performance characteristic determined by the Dermatopathology Laboratory at [facility], directed by Dr. Jaylan Cunningham. These tests need not be, and therefore are not, approved by the [place] Food and Drug Administration. The tests are used for clinical purposes. Billing Codes Specimen Charges Stain Charges 00439 1 40718 1 4 4:27 PM [facility] DERMATOPATHOLOGY LABORATORY Embedded Images 4 4:27 PM [facility] DERMATOPATHOLOGY LABORATORY Pathology/Cytolo gy TISSUE SPECIMEN FROM SKIN / Unknown 10/14/2023 3:33 AM DRYING TUNNEL OPERATOR 10/17/2023 2:24 PM DRYING TUNNEL OPERATOR Ketan Sheppard MD LAB - PATHOLOGY/CYTO LOGY ORDERABLES DERMATOPATHOLOGY LABORATORY [facility] - Department of Dermatology [address], [address] [phone] * CULTURE URINE COMPREHENSIVE (07/09/2014) Only the most recent of2 resultswithin the time period is included. Culture SEE NOTE [facility] ([facility]) Comment: CULTURE, URINE, SPECIAL MICRO NUMBER: [id number] TEST STATUS: FINAL SPECIMEN SOURCE: URINE SPECIMEN QUALITY: ADEQUATE RESULT: No Growth REPORT COMMENT: PREFERRED LAB:->[facility] Test Performed at: [facility] [id number] SALMA CAMPBELL MD Urine specimen (specimen) 07/09/2014 07/10/2014 3:51 AM CDT Narrative [facility] ([facility]) - 07/12/2014 8:00 AM CDT Preferred Lab:->[facility] Victor Hugo Li MD LAB - MICROBIOLOGY O RDERABLES Performing Organization Address City/[facility]/ZIP Co de Phone Number [facility] ([facility]) * URINALYSIS - POINT OF CARE (AMB) [facility] (06/19/2014) Glucose UA neg [facility] Bilirubin UA POCT neg [facility] Ketones UA POCT neg [facility] Specific Higgins UA 1.010 [facility] Blood Urine POCT neg [facility] pH UA 5.0 [facility] Protein UA neg [facility] Urobilinogen UA neg [facility] Nitrite UA neg [facility] WBC UA neg [facility] Urine specimen (specimen) 06/19/2014 Victor Hugo Li MD LAB - POINT OF CARE ORDERABLES Performing Organization Address [facility] Co de Phone Number [facility] * XR SHOULDER RIGHT 2VW OR MORE (11/12/2012 1:02 PM DRYING TUNNEL OPERATOR) Anatomical Region Laterality Modality Upper Extremity Other Impressions 11/12/2012 4:01 PM DRYING TUNNEL OPERATOR Impression: No radiographic evidence of bone or joint disease. This report has been dictated by Cornelius Grace M.D. (Resident). I, Dr. JACKIE MEDINA M.D. have personally reviewed and interpreted this examination/study. This report was electronically signed by JACKIE MEDINA M.D. on 11/12/2012 4:01 PM . Narrative 11/12/2012 4:01 PM DRYING TUNNEL OPERATOR Exam: Right shoulder, 3 views Date: 11/12/2012 [...] . Mahogany Gibson MD [facility] Care Teams Bench Scientist Relationship Specialty Start Date End Date Maya Mcclain MD [address] [place] [phone] PCP - General 10/31/20
--- OUTSIDE RECORDS SUMMARY | 2024-11-23 19:48 | XMS_ITS | Patient Health Record ---
[facility] Address [address] [place] [address] Care Team Providers Care Dock Operations Supervisor Name Role Phone Razia Salcedo Primary Care Provider [phone] Jez Giraldo Unavailable [phone] Allergies Allergen (clinical drug ingredient) Drug/Non Drug Allergy documented on EMR Reaction Allergy Type Onset Date Status ammonia AMMONIA INHALANT (uncoded) Unknown Allergy Active codeine CODEINE Unknown Drug Allergy Active AMMONIA AROMATIC Unknown Drug Allergy Active Reason For Referral No Information Medications Medication SIG (Take, Route, Frequency, Duration) Notes Start Date End Date Status Adderall 20 MG 1 tablet Orally Twice a day for 30 days last refill for patient 05/15/2020 Active Zofran 8 MG 1 tablet as needed Orally Once a day for 30 days 02/01/2020 Active Pregabalin 150 MG 1 capsule Orally TID for 30 days 04/02/2020 Active Esomeprazole Magnesium 40 MG 1 capsule Orally Once a day for 30 days 01/11/2020 Active Abilify 5 MG 1 tablet Orally Once a day for 30 Active ALPRAZolam 2 MG 1 tablet on the tongue and allow to dissolve Orally Three times a day for 30 days Active Effexor XR 150 MG take 2 caps Orally Once a day for 30 Active Symbicort 160-4.5 MCG/ACT 2 puffs Inhalation Twice a day Active NexIUM 20 MG 1 capsule ORAL Once a day 09/16/2013 Not-Taking Budesonide 32 MCG/ACT 1 spray in each nostril Nasally Once a day for 30 day(s) 11/30/2019 Active ProAir HFA 90mcg/actuation INHALE 2 PUFFS BY MO INHALATION 03/11/2015 Unknown Immunizations Vaccine Route Administration Date Status Comme nts Flulaval IM Intramuscular 06/01/2019 Administered Influenza (split), 3 yrs and above IM Intramuscular 05/25/2013 Administered Tdap (Boostrix, Adacel) Unknown 05/27/2015 Administered zzFluvirin IM Intramuscular 06/01/2016 Administered zzInfluenza, High dose, injectable, preservative free (Fluzone) Unknown 05/20/2014 Administered Pneumococcal conjugate PCV 13 (Prevnar 13) Unknown 12/25/2015 Administered Social History Tobacco Use: Social History Observation Description Date Details (start date - stop date) Current Smoker NA - NA Tobacco Use/Smoking Question Answer Notes Smoking Status: current smoker How often do you smoke cigarettes? every day Additional Findings: Tobacco User User of moist powdered tobacco Problems Problem Type SNOMED Code ICD Code Onset Dates Problem Status W/U Status Risk Notes Problem Allergic rhinitis (65291636) Allergic rhinitis (J30.9) Active confirmed Problem Depression (048541509) Depression (F32.9) Active confirmed Problem Menopausal symptom (51929201) Hot flashes due to menopause (N95.1) Active confirmed Problem Osteoarthritis (955497853) Osteoarthritis involving multiple joints on both sides of body (M15.9) Active confirmed Problem Cervical arthritis (653137594) Cervical arthritis (M46.92) Active confirmed Problem Iron deficiency anemia (35165389) Iron deficiency anemia, unspecified (D50.9) 0 confirmed Young Problem Morbid obesity (325794392) Morbid (severe) obesity due to excess calories (E66.01) 0 confirmed Young Problem Bipolar disorder (10989309) Bipolar disorder, unspecified (F31.9) 0 confirmed Young Problem Anxiety disorder (161523031) Anxiety disorder, unspecified (F41.9) 0 confirmed Young Problem Chronic obstructive pulmonary disease (59906542) Chronic obstructive pulmonary disease, unspecified (J44.9) 0 confirmed Young Problem Gastro-esophageal reflux disease with esophagitis (742227093) Gastro-esophageal reflux disease with esophagitis (K21.0) 0 confirmed Young Problem Peptic ulcer without haemorrhage AND without perforation (67112864) Peptic ulcer, site unspecified, unspecified as acute or chronic, without hemorrhage or perforation (K27.9) 0 confirmed Young Problem 69174423 Other and unspecified hyperlipidemia (E78.5) 0 confirmed Young Problem 72769978 Vitamin D deficiency (E55.9) 0 confirmed Young Problem 83121447 Lumbar disc disorder (M51.9) 0 confirmed Yougn Plan Of Treatment Pending Test Test Name Order Date Urinalysis, Routine 07/23/2016 REFLEXIVE URINE CULTURE 07/23/2016 Insurance Providers Payer Name Payer Address Payer Phone Subscriber Number Group Number Insured Name Patient Relationship to Insured Coverage Start Date Coverage End Date [facility] [employer] Solutions PPO [address] [address] [place] [address] [phone] [id number] Dipti Luna Self - patient is the insured 6 Medical (General) History Medical History History ICD Code Tonsillectomy Alcoholism Anxiety TAHBSO Right Rotator Cuff Tendinopathy PUD Iron Deficiency Anemia Vitamin D Deficiency Bladder Sling Borderline Diabetes Mellitus COPD
--- OUTSIDE RECORDS SUMMARY | 2024-11-23 19:48 | XMS_ITS | Encounter Summary ---
Author Organization [facility] Healthcare Address [address] [place] [address] Care Team Providers Care Intermediate Accountant Name Role Phone Luis Saunders MD Unavailable [phone] Jammie Burdick MD Unavailable [phone] Ervin Garcia MD Unavailable [phone] Haleigh Young MD Primary Care Provi naye Jean Carlos Berrios MD Unavailable [phone] Rosa Herr RN Unavailable Braden Sherwood DO Unavailable [phone] Ladonna Martinez ACID CORRECTION HAND Unavailable Kamila Witt NP Unavailable Sally Castañeda MA Unavailable [phone] Encounter Details Date Type Department Care Team (Late st Contact Info) Description 02/07/2024 Telephone [facility] Family Medicine [address] [address] Haleigh Young MD [address] [place] [address] Social History Tobacco Use Types Packs/Day [...] materials from doctor or pharmacy Sometimes 09/22/2023 [facility] Utilities Answer Date Recorded In the past 12 months has th e [employer], gas, oil, or water OLED-T threatened to shut off services in your home? No 01/30/2024 Social Connection and Isolat ion Panel [NHANES] Answer Date Recorded In a typical week, how many times do you talk on the phone with family, friends, or neighbors? More than three times a week 01/30/2024 How often do you get togethe r with friends or relatives? More than three times a week 01/30/2024 How often do you attend chur ch or lutheran services? Never 01/30/2024 Do you belong to any clubs o r organizations such as faith groups, unions, fraternal or athletic groups, or school groups? No 01/30/2024 How often do you attend meet ings of the clubs or organizations you belong to? Never 01/30/2024 Are you , , di vorced, , never , or living with a partner? 01/30/2024 AUDIT-C Answer Date Recorded Q1: How often do you have a drink containing alcohol? Never 02/09/2024 Q2: How many drinks containi ng alcohol do you have on a typical day when you are drinking? Patient does not drink Q3: How often do you have si x or more drinks on one occasion? Never 02/09/2024 Overall Financial Resource Strain (CARDIA) Answe r Date Recorded How hard is it for you to pa y for the very basics like food, housing, medical care, and heating? Not very hard 01/30/2024 PHQ-2 Answer Date Recorded PHQ-2 Total Score (If total score is 3 or more points, staff should administer the PHQ-9) 0 02/09/2024 Hunger Vital Sign Answer Date Recorded Within the past 12 months, y ou worried that your food would run out before you got the money to buy more. Never true 01/30/20 24 Within the past 12 months, t he food you bought just didn't last and you didn't have money to get more. Never true 01/30/2024 PRAPARE - Transportation Answer Date Re corded In the past 12 months, has l ack of transportation kept you from medical appointments or from getting medications? No 01/11 In the past 12 months, has l ack of transportation kept you from meetings, work, or from getting things needed for daily living? No 01/30/2024 Housing Stability Vital Sign Answer Lucas e [...] place to sleep or slept in a mcfp (including now)? No 10/17/2023 Housing Stability Vital Sign Answer Lucas e Recorded In the last 12 months, was t here a time when you were not able to pay the mortgage or rent on time? No 01/30/2024 In the past 12 months, how m any times have you moved where you were living? 1 01/30/2024 At any time in the past 12 m [facility], were you homeless or living in a mcfp (including now)? No 01/30/2024 Personal Safety Answer Date Recorded Have you ever been in or are you currently in a harmful physical or emotional relationship or is someone making you feel afraid or unsafe? Denies 01/28/2024 Comments No Sex and Gender Information Value Date Recorded Sex Assigned at Not on file Legal Sex Female 1:41 PM RAPID EXTRACTOR OPERATOR Gender Identity Not on file Sexual Orientation Not on file Occupation Industry Job Start Date Job End Date DISABILITY Not on file Not on file Not on file documented as of this encounter Functional Status * Audit-C Score Answer Date of Assessment Author 0 02/09/2024 10:56 AM CDT Tami Jimenez MA * Question Answer Date of Assessment Author Q1: How often do you have a drink containing alcohol? Never 02/09/2024 10:56 AM CDSergio Sanchez MA Q2: How many drinks containing alcohol do you have on a typical day when you are drinking? Patient does not drink 02/09/2024 10:56 AM Tami Shelley MA Q3: How often do you have six or more drinks on one occasion? Never 02/09/2024 10:56 AM CDSergio Sanchez MA documented as of this encounter Plan of Treatment Not on file documented as of this encounter Goals Goal Patient Goal Type Associated Problems Recent Progress Patient-Stated? Author RIMA General Goal - Patient is knowledgeable about condition when worsening and how to respond ACO Care Management On track(2023 1:13 PM RAPID EXTRACTOR OPERATOR) No Rosa Herr, RN Note: Problem: Knowledge deficit related to [...] ACO Care Management On track(2024 10:21 AM RAPID EXTRACTOR OPERATOR) No Bev Du LCSW Note: Problem: Need for Community Resources Interventions: - Provide patient/family with a list of appropriate resources for their specific need. - Help to coordinate resources. - Follow up to ensure patient/family has connected with the appropriate resources / personnel. CCM Chronic Pain Care Plan Chronic Care Management No Manjula Caal NP Note: Problem: Chronic Pain Goals: 1. Minimize further functional decline 2. Maximize quality of life 3. 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 [address] [place] [address] Consulting Physician Pulmonary Disease 07/08/20 Jean Carlos Berrios MD [address] [facility] [place] [address] Referring Physician Obstetrics and Gynecology 02/23/22 Rosa Herr RN [address] [place] [address] [address] [place] [address] Flatbed Truck Driver 06/03/22 Braden Sherwood DO [address] [facility] [address] [place] [address] Referring Physician Psychiatry 06/04/22 Ladonna Martinez, [place] [address] [facility] [address] [place] [address] Nurse Practitioner Nurse Practitioner 10/31/23 Kamila Witt NP [address] [facility] [place] [address] Nurse Practitioner Hospice and Palliative Medicine 03/01/24 Sally Castañeda, TYRESE [address] [place] [address] [address] [place] [address] ACO Care Speech And Language Specialist 10/15/24 10/15/24 documented as of this encounter
--- OUTSIDE RECORDS SUMMARY | 2024-11-23 19:48 | XMS_ITS | Encounter Summary ---
Author Organization [facility] Address [address] [facility] [address] Care Team Providers Care Salesperson Stereo Equipment Name Role Phone Maya Mcclain MD Primary Care Provider [phone] Encounter Details Date Type Department Care Team (Late st Contact Info) Description 10/14/2023 Lab Requisition [facility] - DermPath Lab [address] [facility] [place] [address] Ketan Sheppard MD [facility] DERMATOLOGY [address] [place] [phone] Dermatitis, unspecified Social History Tobacco Use [...] Diagnosis Comments DERMATOPATHOLOGY Routine 10/14/2023 3:33 AM PROFESSOR COMPUTER SCIENCE Dermatitis, unspecified documented in this encounter Results * DERMATOPATHOLOGY (10/14/2023 3:33 AM PROFESSOR COMPUTER SCIENCE) Case Report Dermatopathology Report Case: [id number] Authorizing Provider: Ketan Sheppard MD Collected: 10/14/2023 03:33 AM Ordering Location: [facility] DermPath Lab Received: 10/17/2023 02:24 PM Pathologist: Ruby Licona MD Specimen: Skin, left buttock 4:27 PM [facility] DERMATOPATHOLOGY LABORATORY Final Diagnosis Specimen A. SKIN, left buttock: EPIDERMAL NECROSIS SUGGESTIVE OF EXCORIATION (L98.499) (see microscopic description) 4 4:27 PM [facility] DERMATOPATHOLOGY LABORATORY Clinical History Atopic dermatitis vs contact dermatitis other vs scabies 4:27 PM [facility] DERMATOPATHOLOGY LABORATORY Gross Description Specimen A: Received is one formalin filled container labeled with the patient's name and designated left buttock. The specimen consists of a punch biopsy measuring 4x4x4 mm, bisected. Jar 0. 4:27 PM [facility] DERMATOPATHOLOGY LABORATORY Microscopic Description Specimen A. SKIN, left buttock: The epidermis is focally necrotic and covered with a scale-crust. There is fibrin at the base. Additional deeper sections were obtained and reviewed. Grocott's methenamine silver (GMS) stain is negative for fungal elements in the sections examined. 4:27 PM [facility] DERMATOPATHOLOGY LABORATORY Disclaimer An external and internal positive and negative controls are appropriate for the histochemical, immunohistochemical and immunofluorescence stain(s) in this case (if any), except where stated explicitly. The performance characteristics of the stain(s) cited in this report were developed and its performance characteristic determined by the Dermatopathology Laboratory at [facility], directed by Dr. Jaylan Cunningham. These tests need not be, and therefore are not, approved by the [place] Food and Drug Administration. The tests are used for clinical purposes. Billing Codes Specimen Charges Stain Charges 41214 1 15752 1 4 4:27 PM [facility] DERMATOPATHOLOGY LABORATORY Embedded Images 4 4:27 PM [facility] DERMATOPATHOLOGY LABORATORY Pathology/Cytolo gy TISSUE SPECIMEN FROM SKIN / Unknown 10/14/2023 3:33 AM PROFESSOR COMPUTER SCIENCE 10/17/2023 2:24 PM PROFESSOR COMPUTER SCIENCE Ketan Sheppard MD LAB - PATHOLOGY/CYTO LOGY ORDERABLES DERMATOPATHOLOGY LABORATORY [facility] - Department of Dermatology [address] [phone] documented in this encounter Visit Diagnoses Diagnosis Dermatitis, unspecified documented in this encounter Care Teams Salesperson Stereo Equipment Relationship Specialty Start Date End Date Maya Mcclain MD [address] [place] [phone] PCP - General 10/31/20 documented as of this encounter
--- OUTSIDE RECORDS SUMMARY | 2024-11-23 19:48 | XMS_ITS | Encounter Summary ---
Author Organization [facility] Healthcare Address [address] [place] [address] Care Team Providers Care Clinical Staff Rn Name Role Phone Luis Saunders MD Unavailable [phone] Jammie Burdick MD Unavailable [phone] Ervin Garcia MD Unavailable [phone] Haleigh Young MD Primary Care Provi naye Jean Carlos Berrios MD Unavailable [phone] Rosa Herr RN Unavailable [phone] Braden Sherwood DO Unavailable [phone] Ladonna Martinez SUPERVISOR PLATE FORMING Unavailable [phone] Kamila Witt NP Unavailable [phone] Encounter Details Date Type Department Care Team (Late st Contact Info) Description 11/23/2024 Telephone [facility] Medical Group Pulmonology [address] [facility] [address] [place] [phone] Syl Jaimes, RN Social History Tobacco Use Types Packs/Day Years [...] doctor or pharmacy Sometimes 09/22/2023 [facility] Utilities Answer Date Recorded In the past 12 months has th e electric, gas, oil, or water company threatened to shut off services in your [...] often do you attend chur ch or mormonism services? Never 10/18/2024 Do you belong to any clubs o r organizations such as yazdanism groups, unions, fraternal or athletic groups, or [...] place to sleep or slept in a fci (including now)? No 10/17/2023 Housing Stability Vital Sign Answer Lucas e Recorded In the last 12 months, was t here a time when you were not able to pay the mortgage or rent on time? No 10/18/2024 In the past 12 months, how m any times have you moved where you were living? 1 10/18/2024 At any time in the past 12 m [facility], were you homeless or living in a fci (including now)? No 10/18/2024 Personal Safety Answer Date Recorded Have you ever been in or are you currently in a harmful physical or emotional relationship or is someone making you feel afraid or unsafe? Denies 10/10/2024 Comments No Sex and Gender Information Value Date Recorded Sex Assigned at Not on file Legal Sex Female 1:41 PM WELFARE SERVICE AIDE Gender Identity Not on file Sexual Orientation Not on file Occupation Industry Job Start Date Job End Date DISABILITY Not on file Not on file Not on file documented as of this encounter Miscellaneous Notes * Telephone Encounter - Syl Jaimes, MIRTA - 11/23/2024 11:19 AM CDT Pt called stating she is experiencing worsening sob. Pt stated she was making her bed this morning,with her oxygen on at 2L, and she desatted to 79%. Informed pt she would need to be evaluated in the ED due to desatting. Pt stated she refused to go to the ED because the staff is always rude to her. Pt stated she thinks she may be low on blood, maybe that's why her oxygen is dropping. Reiterated again, desatting could be caused by a multitude of things, but if it is due to her hgb, this wouldalso warrant an ED visit. Pt again refused. I informed pt that treatment was very limited from an outpt setting for this problem. documented in this encounter Plan of Treatment Not on file documented as of this encounter Goals Goal Patient Goal Type Associated Problems Recent Progress Patient-Stated? Author RIMA General Goal - Patient is knowledgeable about condition when worsening and how to respond ACO Care Management On track(2023 1:13 PM WELFARE SERVICE AIDE) No Rosa Herr, RN Note: Problem: Knowledge [...] ACO Care Management On track(2024 10:21 AM WELFARE SERVICE AIDE) No Bev Du LCSW Note: Problem: Need [...] on filedocumented in this encounter Care Teams Clinical Staff Rn Relationship Specialty Start Date End Date Haleigh Young MD [address] [place] [address] PCP - General Family Medicine 11/24/21 Luis Saunders MD Referring Physician Gastroenterology 07/31/18 Jammie Burdick MD Referring Physician Gastroenterology 07/31/18 Ervin Garcia MD [address] [facility] [address] [place] [address] Consulting Physician Pulmonary Disease 07/08/20 Jean Carlos Berrios MD [address] [place] [address] Referring Physician Obstetrics and Gynecology 02/23/22 Rosa Herr, MIRTA [address] [place] [address] [address] [place] [address] Production Assembler 06/03/22 Braden Sherwood DO [address] [facility] [address] [place] [address] Referring Physician Psychiatry 06/04/22 Ladonna Martinez, COLLIN [address] [facility] [address] [place] [address] Nurse Practitioner Nurse Practitioner 10/31/23 Kamila Witt NP [address] [facility] [place] [address] Nurse Practitioner Hospice and Palliative Medicine 03/01/24 documented as of this encounter
--- OUTSIDE RECORDS SUMMARY | 2024-11-23 19:48 | XMS_ITS | Encounter Summary ---
Author Organization [facility] Healthcare Address [address] [place] [address] Care Team Providers Care Footwear Sales Representative Name Role Phone Luis Saunders MD Unavailable [phone] Jammie Burdick MD Unavailable [phone] Ervin Garcia MD Unavailable [phone] Haleigh Young MD Primary Care Provi naye Jean Carlos Berrios MD Unavailable [phone] Rosa Herr RN Unavailable [phone] Braden Sherwood DO Unavailable [phone] Ladonna Martinez WOODS SUPERINTENDENT Unavailable [phone] Kamila Witt NP Unavailable [phone] Encounter Details Date Type Department Care Team (Late st Contact Info) Description 11/23/2024 Nurse Triage [facility] Medical Group Family Medicine [address] [phone] Haleigh Young MD [address] [place] [id number] Social History Tobacco Use Types Packs/Day [...] materials from doctor or pharmacy Sometimes 09/22/2023 [facility] Utilities Answer Date Recorded In the past 12 months has th e [employer], oil, or water [employer] threatened to shut off services in your [...] often do you attend chur ch or oriental orthodox services? Never 10/18/2024 Do you belong to any clubs o r organizations such as oriental orthodox groups, unions, fraternal or athletic groups, or [...] place to sleep or slept in a mcc (including now)? No 10/17/2023 Housing Stability Vital Sign Answer Lucas e Recorded In the last 12 months, was t here a time when you were not able to pay the mortgage or rent on time? No 10/18/2024 In the past 12 months, how m any times have you moved where you were living? 1 10/18/2024 At any time in the past 12 m [facility], were you homeless or living in a mcc (including now)? No 10/18/2024 Personal Safety Answer Date Recorded Have you ever been in or are you currently in a harmful physical or emotional relationship or is someone making you feel afraid or unsafe? Denies 10/10/2024 Comments No Sex and Gender Information Value Date Recorded Sex Assigned at Not on file Legal Sex Female 1:41 PM IT SECURITY CONSULTING DIRECTOR Gender Identity Not on file Sexual Orientation Not on file Occupation Industry Job Start Date Job End Date DISABILITY Not on file Not on file Not on file documented as of this encounter Miscellaneous Notes * Telephone Encounter - Haleigh Young MD - 11/23/2024 2:49 PM CDT Noted, thank you * Telephone Encounter - Neda Cisneros LPN - 11/23/2024 2:12 PM CDT I spoke with patient, she is going to go to [place]. She will touch base with us when discharged * Telephone Encounter - Lorena Floyd RN - 11/23/2024 12:04 PM CDT Dipti Luna reports SpO2 of 79% on 2 L O2 via NC at home while making bed. Pt states she felt SOB while doing task and checked SAT. Pt increased O2 to 3L with current SpO2 96% during this RN call at 1205. Pt states she is not currently in resp distress. Pt called Pulm and they advised ED. Pt refuses ED. Pt states ED tells her this is chronic condition and needs to be managed by PCP. Pt states ED is unkind to her and does not help. Pt is asking to have her HGB checked as she states this is a causative factor when she gets SOB with activity like this. DISPO: Go to office now Routing to clin pool: Pt asking for lab orders to check HGB instead of Ed visit r/t desaturation on home O2 with activitytoday. Pls contact Dipti Luna at [phone] for further assist. Reason for Disposition Longstanding difficulty breathing (e.g., CHF, COPD, emphysema) and worse than normal Protocols used: Breathing [id number]-Vtkrh-SM * Telephone Encounter - Lorena Floyd RN - 11/23/2024 11:54 AM CDT Regarding: SOB ----- Message from Froylan Silveira sent at 11/23/2024 11:54 AM CDT ----- Symptom Based Call Chief Complaint(s): SOB, oxygen 79 Duration: What type of symptom(s) is the patient experiencing? Red Flag. Is the patient concerned they are experiencing a medical emergency requiring an ambulance? No Additional Comments: patient called purification supervisor to go to ED, she refused. Was advised by lead to send to durability engineer for eval [facility] since backline of [facility] clinical staff was on lunch Does message need to be routed? Yes-Action Needed documented in this encounter Plan of Treatment Not on file documented as of this encounter Goals Goal Patient Goal Type Associated Problems Recent Progress Patient-Stated? Author RIMA General Goal - Patient is knowledgeable about condition when worsening and how to respond ACO Care Management On track(2023 1:13 PM IT SECURITY CONSULTING DIRECTOR) No Rosa Herr, RN Note: Problem: Knowledge [...] ACO Care Management On track(2024 10:21 AM IT SECURITY CONSULTING DIRECTOR) No Bev Du LCSW Note: Problem: Need [...] on filedocumented in this encounter Care Teams Footwear Sales Representative Relationship Specialty Start Date End Date Haleigh Young MD [address] [place] [address] PCP - General Family Medicine 11/24/21 Luis Saunders MD Referring Physician Gastroenterology 07/31/18 Jammie Burdick MD Referring Physician Gastroenterology 07/31/18 Ervin Garcia MD [address] [facility] [address] [address] Consulting Physician Pulmonary Disease 07/08/20 Jean Carlos Berrios MD [address] [place] [address] Referring Physician Obstetrics and Gynecology 02/23/22 Rosa Herr RN [address] [place] [address] [address] [place] [address] Television Operator 06/03/22 Braden Sherwood DO [address] [facility] [address] [place] [address] Referring Physician Psychiatry 06/04/22 Ladonna Martinez, COLLIN [address] [facility] [address] [place] [address] Nurse Practitioner Nurse Practitioner 10/31/23 Kamila Witt NP [address] [facility] [place] [address] Nurse Practitioner Hospice and Palliative Medicine 03/01/24 documented as of this encounter
--- OUTSIDE RECORDS SUMMARY | 2024-11-23 19:48 | XMS_ITS | Encounter Summary ---
Author Organization [facility] Healthcare Address [address] [place] [address] Care Team Providers Care Floor Molder Name Role Phone Luis Saunders MD Unavailable [phone] Jammie Burdick MD Unavailable [phone] Ervin Garcia MD Unavailable [phone] Haleigh Young MD Primary Care Provi naye Jean Carlos Berrios MD Unavailable [phone] Rosa Herr RN Unavailable [phone] Braden Sherwood DO Unavailable [phone] Ladonna Martinez CREDIT REVIEW OFFICER Unavailable [phone] Kamila Witt NP Unavailable [phone] Reason for Visit * Reason Onset Date Comments Medical Question/Miscellaneous 11/09/2024 Encounter Details Date Type Department Care Team (Late st Contact Info) Description 11/09/[address] [facility] Medical Group Family Medicine [address] [phone] Haleigh Young MD [address] [place] [id number] Medical Question/Miscellaneous Social History Tobacco Use Types Packs/Day Years [...] from doctor or pharmacy Sometimes 09/22/2023 [facility] Utilities Answer Date Recorded In the past 12 months has e electric, gas, oil, or water company [...] often do you attend chur ch or yazidi services? Never 10/18/2024 Do you belong to any clubs o r organizations such as rastafari groups, unions, fraternal or athletic groups, or [...] place to sleep or slept in a residential (including now)? No 10/17/2023 Housing Stability Vital Sign Answer Lucas e Recorded In the last 12 months, was t here a time when you were not able to pay the mortgage or rent on time? No 10/18/2024 In the past 12 months, how m any times have you moved where you were living? 1 10/18/2024 At any time in the past 12 m [facility], were you homeless or living in a residential (including now)? No 10/18/2024 Personal Safety Answer Date Recorded Have you ever been in or are you currently in a harmful physical or emotional relationship or is someone making you feel afraid or unsafe? Denies 10/10/2024 Comments No Sex and Gender Information Value Date Recorded Sex Assigned at Not on file Legal Sex Female 1:41 PM PROCUREMENT MANAGER Gender Identity Not on file Sexual Orientation Not on file Occupation Industry Job Start Date Job End Date DISABILITY Not on file Not on file Not on file documented as of this encounter Miscellaneous Notes * Telephone Encounter - Neda Cisneros LPN - 11/09/2024 2:33 PM CST [facility] refused patient, [facility] will not see patient for palliative care. Any other palliative care suggestions? UREMENT MANAGER * Telephone Encounter - Elvia Sterling. - 11/09/2024 1:19 PM CST Medical Question/Miscellaneous Caller???s Concern: Kathe with Paliative Care states they have to Decline the Referral the Office sent to them. Does message need to be routed? Yes-Action Needed UREMENT MANAGER documented in this encounter Plan of Treatment Not on file documented as of this encounter Goals Goal Patient Goal Type Associated Problems Recent Progress Patient-Stated? Author RIMA General Goal - Patient is knowledgeable about condition when worsening and how to respond ACO Care Management On track(2023 1:13 PM PROCUREMENT MANAGER) No Rosa Herr, RN Note: Problem: Knowledge [...] ACO Care Management On track(2024 10:21 AM PROCUREMENT MANAGER) No Bev Du LCSW Note: Problem: Need [...] on filedocumented in this encounter Care Teams Floor Molder Relationship Specialty Start Date End Date Haleigh Young MD [address] [place] [address] PCP - General Family Medicine 11/24/21 Luis Saunders MD Referring Physician Gastroenterology 07/31/18 Jammie Burdick MD Referring Physician Gastroenterology 07/31/18 Ervin Garcia MD [address] [facility] [address] [place] [address] Consulting Physician Pulmonary Disease 07/08/20 Jean Carlos Berrios MD [address] [place] [address] Referring Physician Obstetrics and Gynecology 02/23/22 Rosa Herr RN [address] [place] [address] [address] [place] [address] Associate Professor Of Literature 06/03/22 Brdaen Sherwood DO [address] [facility] [address] [place], [place] [id number] Referring Physician Psychiatry 06/04/22 Ladonna Martinez NP [address] [facility] [address] [place] [address] Nurse Practitioner Nurse Practitioner 10/31/23 Kamila Witt NP [address] [facility] [place] [address] Nurse Practitioner Hospice and Palliative Medicine 03/01/24 documented as of this encounter
--- OUTSIDE RECORDS SUMMARY | 2024-11-23 19:48 | XMS_ITS | Referral Summary ---
Author Organization [facility] [email or web address] Address [address] [facility] [place] [address] Care Team Providers Care Account Clerk Name Role Phone Maya Mcclain MD Primary Care Provider [phone] Source Comments [facility] [email or web address],non-owned Affiliates and Associated Physician Practices is amultiple site organization consisting of ambulatory clinics and hospital sitesin [place], [place], [place] and [place]. This disclosure is being madepursuant to the Care Everywhere program and may not contain all information available regarding this patient. Last updated 18[email or web address] Allergies Active Allergy Reactions Criticality Noted Date [...] of Treatment Not on file Care Teams Account Clerk Relationship Specialty Start Date End Date Maya Mcclain MD [address] [place] [phone] PCP - General 10/31/20
--- OUTSIDE RECORDS SUMMARY | 2024-11-23 19:48 | XMS_ITS | Referral Summary ---
Author Organization [facility] Address [address] [place] [address] Care Team Providers Care Adventure Education Teacher Name Role Phone Luis Saunders MD Unavailable [phone] Jammie Burdick MD Unavailable [phone] Ervin Garcia MD Unavailable Haleigh Young MD Primary Care Provi naye Jean Carlos Berrios MD Unavailable Rosa Herr RN Unavailable [phone] Braden Sherwood DO Unavailable Ladonna Martinez CLINICAL EXERCISE SPECIALIST Unavailable [phone] Kamila Witt CLINICAL EXERCISE SPECIALIST Unavailable [phone] Encounters Date Type Department Care Team Description 11/23/2024 Nurse Triage [facility] Medical [facility] Family Medicine [address] [phone] Haleigh Young MD 11/23/2024 Telephone [facility] Pulmonology [facility] [address] [place] [phone] Syl Jaimes, MIRTA 11/19/2024 Orders Only [facility] Family Medicine [address] [phone] Haleigh Young MD Chronic respiratory failure with hypoxia (HCC) (Primary Dx) 11/14/[address] [phone] Haleigh Young MD Medical Question/Miscellaneo us 11/09/[address] [phone] Haleigh Young MD Medical Question/Miscellaneo us 10/29/2024 Orders Only [address] [phone] Haleigh Young MD Chronic respiratory failure with hypoxia (HCC) (Primary Dx) 10/29/[address] [phone] Haleigh Young MD 10/29/2024 1:30 PM POINTER HELPER Office Visit [address] [phone] Heather Arteaga PA Acute bilateral lower abdominal pain (Primary Dx); Chronic bullous emphysema (CMS/HCC) (HCC); Chronic respiratory failure with hypoxia (HCC); Class 1 obesity due to excess calories with serious comorbidity and body mass index (BMI) of 30.0 to 30.9 in adult 10/24/2024 10:55 AM POINTER HELPER Lab [facility] Office Building [address] [place] [address] Hyperglycemia; Iron deficiency anemia due to chronic blood loss 10/24/2024 10:30 AM POINTER HELPER Office Visit [facility] Pulmonary [address] [place] [phone] Ervin Garcia MD Chronic obstructive pulmonary disease, unspecified COPD type (HCC) (Primary Dx); PEREZ (dyspnea on exertion); Chronic respiratory failure with hypoxia (HCC) 10/17/2024 10:45 AM POINTER HELPER Office Visit [address] [phone] Haleigh Young MD Narcotic dependence (HCC) (Primary Dx); Benzodiazepine dependence (HCC); Generalized anxiety disorder; Iron deficiency anemia due to chronic blood loss; Hyperglycemia; Class 1 obesity due to excess calories with serious comorbidity and body mass index (BMI) of 32.0 to 32.9 in adult 10/16/2024 [facility] [address] [address] Sally Castañeda MA 10/15/2024 Nurse Triage [address] [phone] Haleigh Young MD 10/12/2024 Orders Only [address] [phone] Heather Arteaga PA 10/12/2024 [facility] [address] [address] Sally Castañeda MA 10/11/2024 Telephone [facility] Palliative Care 1 [facility] [address] [place] [phone] Kamila Witt NP 10/11/2024 Orders Only Hospitalists [address] [facility] [address] [place] [phone] Manuelito Baltazar MD 10/11/[address] [phone] Haleigh Young MD Med Refill 10/11/[address] [phone] Haleigh Young MD Appointment Request 10/11/2024 3:06 AM POINTER HELPER - 10/11/2024 7:25 AM [facility] Emergency Department [address] [place] [phone] Jean Claude Matta Jr., MD Paruchuri, Tharun, MD Narcotic dependence (HCC) (Primary Dx); Benzodiazepine dependence (HCC); Atypical chest pain; End stage COPD (HCC); Palliative care patient Discharge Disposition: Discharge to home or self care 10/10/2024 Documentation [facility] Palliative Care [address] [place] [phone] Kamila Witt NP 10/02/2024 Orders Only [facility] Palliative Care [address] [place] [phone] Kamila Witt NP Chronic bilateral low back pain with bilateral sciatica; Spinal stenosis of lumbar region at multiple levels 09/26/[address] [phone] Haleigh Young MD Poor Memory/Concentration 09/24/[address] [phone] Haleigh Young MD 09/23/2024 5:01 AM [facility] - 09/23/2024 11:05 AM [facility] Emergency [facility] Emergency Department [address] [place] [phone] Sushant Ramirez DO Medication refill (Primary Dx); Chronic pain syndrome; Chronic bilateral low back pain with bilateral sciatica; Spinal stenosis of lumbar region at multiple levels; Hypoglycemia Discharge Disposition: Discharge to home or self care 09/22/2024 Telephone [facility] Palliative Care [address] [place] [address] Kamila Witt NP 09/18/2024 Orders Only [facility] Palliative Care [address] [place] [phone] Kamila Witt NP COPD exacerbation (HCC) (Primary Dx) 09/10/2024 Orders Only [facility] Palliative Care [address] [place] [phone] Kamila Witt NP Chronic bilateral low back pain with bilateral sciatica; Spinal stenosis of lumbar region at multiple levels 09/07/2024 1:35 PM POINTER HELPER - 09/07/2024 1:45 PM [facility] Emergency [facility] Emergency Department [address] [place] [address] Discharge Disposition: Left without being seen 09/06/2024 Telephone [facility] Family Medicine [address] [phone] Haleigh Young MD Shortness of Breath 08/30/2024 Telephone [facility] Pulmonary [place] [address] [facility] [address] [place] [address] Ervin Garcia MD Sick Call from Last 3 Months Allergies Active Allergy Reactions Criticality Noted Date [...] NEBULIZER FOUR TIMES DAILY 360 mL 3 12/28/19 24 Active SharpSafety Container misc as directed 02/27/20 24 Active Dupixent Pen pen injector 03/19/20 24 Active metoprolol tartrate (LOPRESSOR) 25 mg immediate release tablet Take 1 tablet (25 mg total) by mouth 2 (two) times a day 60 tablet 11 06/12/20 24 025 Active aspirin 81 mg enteric coated tablet Take 1 tablet (81 mg total) by mouth daily 30 tablet 11 06/12/20 24 025 Active atorvastatin (LIPITOR) 10 mg tabletIndications: Mixed hyperlipidemia Take 1 tablet (10 mg total) by mouth nightly 90 tablet 1 06/22/20 24 Active albuterol HFA (PROVENTIL HFA,VENTOLIN HFA,PROAIR HFA) [...] mouth daily 30 capsule 1 10/12/19 25 025 Active benzonatate (TESSALON) 200 mg capsule Take 1 capsule (200 mg total) by mouth 3 (three) times a day as needed for cough for up to 30 doses 30 capsule 2 10/24/19 25 Active alcohol swabs pads, medicatedIndicatio ns:Hyperglycemia Apply 1 each topically daily 200 each 3 10/25/19 25 Active blood-glucose meter kitIndications:Hyp erglycemia Use to check blood sugars daily 1 kit 10/25/19 25 Active lancets miscIndications:Hy perglycemia 1 each by other route as directed Use to check blood sugars daily 200 each 3 10/25/19 25 Active blood glucose diagnostic (glucose blood) stripIndications:H yperglycemia Use to check blood sugar daily as directed 100 each 3 10/25/19 25 Active metroNIDAZOLE (FLAGYL) 500 mg tablet Take [...] 01/28/2024 Assessment & Plan (07/27/2024 3:57 PM POINTER HELPER): Symptom duration 2 weeks Recent covid, flu [...] 11/01/2023 Assessment & Plan (11/01/2023 10:01 AM POINTER HELPER): Chronic, persistent Encouraged to follow up with pain management Encouraged to update me after the visit Continue lyrica as prescribed Urinary incontinence 11/01/2023 Assessment & Plan (11/01/2023 10:05 AM POINTER HELPER): Chronic, persistent Will place referral to urology for guidance Update me after the visit Incontinence of feces with fecal urgency 024 Assessment & Plan (11/01/2023 10:02 AM POINTER HELPER): Chronic, persistent Encouraged to follow up with Dr Burdick Update me after the visit Call for questions Chronic respiratory failure with hypoxia 024 Assessment & Plan (06/28/2024 11:25 AM CDT): Chronic. Stable. Continue supplemental oxygen, 2 L. continue to follow with pulmonology. Assessment & Plan (04/12/2024 1:17 PM CDT): Chronic, persistent Oxygen level improved today Will reach out to her floor specialist given her numbers, I do worry her [...] was reviewed with the patient and her rubber goods supervisor Assessment & Plan (02/09/2024 11:30 AM CDT): [...] 01/26/2022 Assessment & Plan (10/29/2024 1:54 PM POINTER HELPER): BMI Follow-up includes: education provided. Assessment & Plan (10/17/2024 12:08 PM POINTER HELPER): Chronic, stable BMI Follow-up includes: Encouraged healthy [...] and cardizem Continue to follow with her nailing machine operator automatic Update me with any changes Call for [...] 11/24/2021 Assessment & Plan (11/01/2023 10:01 AM POINTER HELPER): Chronic, persistent Encouraged to follow up with [...] PM CDT): Chronic, stable Continue valtrex through CONSULTING ANALYST History of Lena fundoplication 08/17/2021 History of diverticulitis 08/17/2021 Palpitations with regular cardiac rhythm 021 Assessment & Plan (11/24/2021 10:39 AM [...] Continue Doug Set up follow-up with her nailing machine operator automatic as well Update me with any changes Call for questions or concerns Assessment & Plan (05/21/2022 6:17 PM CDT): With SVT during her hospital stay at [facility] Felicitas hammer Encouraged follow up with cardiology For now- [...] please contact the office. I strongly encourage GTxhart sign ups. It can facilitate communication flow. [...] monitor Assessment & Plan (09/16/2020 3:02 PM POINTER HELPER): Unclear etiology She is not specific on [...] pt Assessment & Plan (09/16/2020 3:01 PM POINTER HELPER): Currently only taking effexor contineu current management Assessment & Plan (07/15/2020 8:50 AM POINTER HELPER): We will start lyrica 150 mg BID [...] groups. Assessment & Plan (11/01/2023 10:06 AM POINTER HELPER): Chronic, worse Encouraged to reach out to [...] concerns Assessment & Plan (07/15/2020 8:48 AM POINTER HELPER): We will continue this current regime, she [...] 07/08/2020 Assessment & Plan (11/01/2023 10:01 AM POINTER HELPER): Chronic, persistent Encouraged to follow up with [...] of lumbar spine. Continue pain management with [place] 5/325 mg q.6 p.r.n., lidocaine patch, Flexeril 5 mg t.i.d. p.r.n.. PT/OT care. Patient need to follow up with Dr. Delatorre outpatient Assessment & Plan (11/24/2021 10:34 AM CDT): Will check xray We discussed PT- she is unable to afford it She is going home exercises Continue supportive care Further guidance once we have the results Assessment & Plan (07/15/2020 8:48 AM POINTER HELPER): Recommend THC, we will seek out a [...] questions Assessment & Plan (07/15/2020 8:49 AM POINTER HELPER): Remeron and effecor Taking only 150 mg [...] (09/07/2018): Added automatically from request for surgery [id number] Assessment & Plan (03/29/2023 4:54 PM CDT): Chronic, stable Continue Nexium Continue to follow with Dr. Saunders Assessment & Plan (01/26/2022 12:53 PM CDT): Referral to Dr Saunders placed Continue nexium Chronic obstructive pulmonary disease [...] (01/17/2022 12:10 PM CDT): Continue albuterol p.r.n., Trelegy, DuoNebs, Mucinex. Follows up with Pulmonary outpatient with Dr. Garcia Assessment & Plan (11/24/2021 10:34 AM CDT): Continue to follow with pulmonary Continue her inhalers Assessment & Plan (09/16/2020 3:02 PM POINTER HELPER): Continue seeing pulm animal maintenance supervisor antibiotic and steroids Assessment & Plan (07/08/2020 8:35 AM CDT): Continue to follow-up with pulm History of aspiration pneumonia 05/18/2018 Iron deficiency anemia, unspecified 03/20/2018 Assessment & Plan (11/01/2023 10:09 AM POINTER HELPER): Chronic, stable Managed by heme/onc Update me [...] has a call in to the new nailing machine operator automatic to see if she can follow-up sooner [...] CDT): Now uses vaping Chronic bullous emphysema ([facility]) 10/26/2016 Overview (12/17/2016): Bullous emphysema Assessment & [...] Garcia Assessment & Plan (07/15/2020 8:47 AM POINTER HELPER): Likely resulting in her SOB with the change in medications Continue inhaler and seeing pulm History of gastric ulcer 08/04/2015 Assessment & Plan (03/29/2023 4:54 PM CDT): Resolved Continue Nexium Update me with changes or concerns Continue to follow with GI History of fall Spinal stenosis of lumbar region at multiple lev els Assessment & Plan (11/01/2023 10:02 AM POINTER HELPER): Chronic, persistent Encouraged to follow up with [...] (05/30/2022): Added automatically from request for surgery [id number] Diverticulitis large intesti ne w/o perforation or [...] PM CDT): Chronic, followed by Psychiatry Continue Stacijaysonkim We reviewed controlled substances, and that they normally have to be prescribed by 1 person, and that it is important for her to reach out to her psychiatrist when she is due Advised she has to keep the medication safe Update us with any questions or concerns Assessment & Plan (01/26/2022 12:51 PM CDT): On xanax, radha Encouraged to follow up with her psychiatrist, [...] CDT): Chronic, persistent Labs reviewed from her building construction superintendent Referral to hematology pending Update me after [...] (09/07/2018): Added automatically from request for surgery [id number] Gastric ulcer 08/04/2015 03/29/2023 Immunizations Immunization Administration Dates Next Due Influenza, [...] Conjugate Pcv20 03/29/2023 Pneumococcal Polysaccharide PPV23 07/11/2018, Social History Tobacco Use Types Packs/Day Years [...] materials from doctor or pharmacy Sometimes 09/22/[address] [facility] Utilities Answer Date Recorded In the past 12 months has th e [employer], gas, oil, or water [employer] threatened to shut off services in your [...] often do you attend chur ch or moravian services? Never 10/18/2024 Do you belong to any clubs o r organizations such as sikh groups, unions, fraternal or athletic groups, or [...] place to sleep or slept in a penitentiary (including now)? No 10/17/2023 Housing Stability Vital [...] time in the past 12 m [facility], were you homeless or living in a penitentiary (including now)? No 10/18/2024 Personal Safety Answer Date Recorded Have you ever been in or are you currently in a harmful physical or emotional relationship or is someone making you feel afraid or unsafe? Denies 10/10/2024 Comments No Sex and Gender Information Value Date Recorded Sex Assigned at Not on file Legal Sex Female 1:41 PM POINTER HELPER Gender Identity Not on file Sexual Orientation Not on file Occupation Industry Job Start Date Job End Date DISABILITY Not on file Not on file Not on file Last Filed Vital Signs Vital Sign Reading Time Taken Comments Blood Pressure 124/78 10/29/2024 1:23 PM POINTER HELPER Pulse 97 10/29/2024 1:23 PM POINTER HELPER Temperature 36.7 C (98.1 F) 10/29/2024 1:23 PM POINTER HELPER Respiratory Rate 16 10/29/2024 1:23 PM POINTER HELPER Oxygen Saturation 98% 10/29/2024 1:23 PM POINTER HELPER Inhaled Oxygen Concentration - - Weight 80.7 kg (178 lb) 10/29/2024 1:23 PM POINTER HELPER Height 162.6 cm (5' 4 ) 10/29/2024 1:23 PM POINTER HELPER Body Mass Index 30.55 10/29/2024 1:23 PM POINTER HELPER Plan of Treatment Not on file Goals Goal Patient Goal Type Associated Problems Recent Progress Patient-Stated? Author [facility] General Goal - Patient is knowledgeable about condition when worsening and how to respond ACO Care Management On track(2023 1:13 PM POINTER HELPER) Rosa Gu, RN Note: Problem: Knowledge deficit [...] ACO Care Management On track(2024 10:21 AM POINTER HELPER) No Bev Du LCSW Note: Problem: Need [...] as needed Medical Devices Implanted Type Area Hspt Tutor Device Identifier Shelf Expiration Date Model / Serial / Lot Left Foot Screws Foot Procedures Procedure Name Priority Date/Time Associated Diagnosis Comments ALBUMIN CREATININE RATIO, URINE Routine 10/24/2024 11:10 AM POINTER HELPER Hyperglycemia IRON PROFILE W/ IBC Routine 10/24/2024 1 1:07 AM POINTER HELPER Iron deficiency anemia due to chronic blood loss HEMOGLOBIN A1C Routine 10/24/2024 11:07 AM POINTER HELPER Hyperglycemia TROPONIN T HIGH-SENSITIVITY 2-HOUR Timed 10/10/2024 9:50 PM POINTER HELPER XR CHEST 1 VIEW ED 10/10/2024 8:17 PM POINTER HELPER ECG 12-LEAD STAT 10/10/2024 8:07 PM POINTER HELPER EGFR STAT 10/10/2024 7:55 PM POINTER HELPER DIFFERENTIAL AUTO STAT 10/10/2024 7:5 5 PM POINTER HELPER TROPONIN T HIGH-SENSITIVITY SERIES (BASELINE, 2HR, 4HR, 6HR) STAT 10/10/2024 7:55 PM POINTER HELPER COMPREHENSIVE METABOLIC PANEL STAT 10/10/2024 7:55 PM POINTER HELPER CBC WITH AUTO DIFFERENTIAL STAT 10/10/2024 7:55 PM POINTER HELPER POCT GLUCOSE DEVICE Routine 09/23/2024 1 0:55 AM POINTER HELPER POCT GLUCOSE DEVICE Routine 09/23/2024 9 :09 AM POINTER HELPER POCT GLUCOSE DEVICE Routine 09/23/2024 8 :39 AM POINTER HELPER POCT GLUCOSE DEVICE Routine 09/23/2024 7 :57 AM POINTER HELPER POCT GLUCOSE DEVICE Routine 09/23/2024 7 :07 AM POINTER HELPER URINALYSIS AND REFLEX TO MICROSCOPIC AND CULTURE STAT 09/23/2024 6:06 AM POINTER HELPER EGFR STAT 09/23/2024 5:06 AM POINTER HELPER DIFFERENTIAL AUTO STAT 09/23/2024 5:0 6 AM POINTER HELPER COMPREHENSIVE METABOLIC PANEL STAT 09/23/2024 5:06 AM POINTER HELPER CBC WITH AUTO DIFFERENTIAL STAT 09/23/2024 5:06 AM POINTER HELPER POCT GLUCOSE DEVICE Routine 09/23/2024 5 :04 AM POINTER HELPER DIAGNOSTIC MAMMOGRAM BILATERAL W SUKUMAR Schedule Routine, Read Routine (OP Routine) 04/09/2024 8:33 AM CDT Follow-up examination of abnormal mammogram COLONOSCOPY 10/28/2023 3:01 PM POINTER HELPER HEPATITIS C ANTIBODY Routine 08/09/2023 1:28 PM POINTER HELPER DEXA AXIAL SKELETON BONE DENSITY 1 OR [...] Albumin Creatinine Ratio, Urine (10/24/2024 11:10 AM POINTER HELPER) Albumin Ur <12.0 mg/L Comment: Interpretive Data No reference range established. Current interpretive data was last revised 2019. Testing performed by: [address] [address] Creatinine Ur 33.4 mg/dL [facility] Comment: Interpretive Data No reference range established. Current interpretive data was last revised 2019. Testing performed by: [address] [address] Albumin Creatinine Ratio, Ur <36(H) 1 - 29 mg/g [facility] Comment:Testing performed by : [address] [address] Urine 10/24/2024 11:1 0 AM POINTER HELPER 10/24/2024 11:54 AM POINTER HELPER us Haleigh Young MD LAB URINE ORDERABLE S Final Result [facility] [address] [facility] Department [place] [address] * (ABNORMAL) Iron profile w/ IBC (10/24/2024 11:07 AM POINTER HELPER) Iron 45 35 - 145 mcg/dL Comment:Testing performed by : [address] [address] TIBC 271 250 - 400 mcg/dL [facility] Comment:Testing performed by : [address] [address] Transferrin saturation 17(L) 20 - 50 % [facility] Comment:Testing performed by : [address] [address] Blood 10/24/2024 11:0 7 AM POINTER HELPER 10/24/2024 11:53 AM POINTER HELPER Haleigh Young MD LAB BLOOD ORDERABLE S Final Result Performing Organization Address [facility] de Phone Number [address] [employer] [place] [address] * Hemoglobin A1c (10/24/2024 11:07 AM POINTER HELPER) [facility] Hgb A1C 5.4 4.0 - 5.6 % Comment:Testing performed by : [address] [address] Estimated Average Glucose 108 mg/dL [facility] Comment: The ADA recommends reporting an estimated Average Glucose (eAG) with all Hemoglobin A1c results using the equation derived from a study of 507 normal and diabetic adults. Minority populations were underrepresented and children were not included. (Diabetes Care 31:3992-5654, 2008). The eAG is not equivalent to a fasting glucose. Testing performed by: [address] [address] Blood 10/24/2024 11:0 7 AM POINTER HELPER 10/24/2024 11:57 AM POINTER HELPER Haleigh Young MD LAB BLOOD ORDERABLE S Final Result Performing Organization Address [facility] de Phone Number [address] [employer] [place] [address] * Troponin T high-sensitivity 2-hour (10/10/2024 9:50 PM POINTER HELPER) Trop T hs 10 <=14 ng/L Comment: Interpretive Data For further hscTnT resources including the diagnostic algorithm and an aid in interpretation, copy and paste this link: https://nrl.testcatalog.org/show/hsTrop Current Interpretive Data last revised 2020. Testing performed by: [facility], [address] [place] [address]., [address] Trop T hs delta -1 ng/L [facility] HOLT Comment:Testing performed by : [facility], [address] [place] [address]., [address] Trop T hs interp Insignificant [facility] HOLT Comment:Testing performed by : [facility], [address] [place] [address]., [address] Blood 10/10/2024 9:50 PM POINTER HELPER 10/10/2024 10:02 PM POINTER HELPER us Jean Claude Matta Jr., MD LAB BLOOD ORDERABLES Fi nal Result Performing Organization Address City/State/[facility] Co de Phone Number [facility] [address] [facility] Department [place] [address] * XR Chest 1 Vw Portable (if patient condition/safety warrant portable) (10/10/2024 8:17 PM POINTER HELPER) Anatomical Region Laterality Modality Body, Chest N/A Computed Radiogr aphy 10/10/2024 9:08 PM POINTER HELPER Narrative 10/10/2024 9:11 PM POINTER HELPER EXAM DESCRIPTION: XR CHEST 1 VIEW REASON [...] Ac Mcdonald M.D. NS: NS Report ID: [id number] Reading Location: [id number] Procedure Note Ac Mcdonald MD - 10/10/2024 [...] Ac Mcdonald M.D. NS: NS Report ID: [id number] Reading Location: [id number] Jean Claude Matta Jr., MD IMG XR PROCEDURES Final Result * ECG 12 lead (10/10/2024 8:07 PM POINTER HELPER) Ventricular Rate EKG/Min 79 BPM [facility] Atrial Rate 79 BPM [facility] ID-Interval (MSEC) 170 ms [facility] QRS-Interval (MSEC) 72 ms [facility] QT-Interval (MSEC) 398 ms [facility] QTc 456 ms [facility] P [place]aver 57 degrees [facility] R Deaver 21 degrees [facility] T Deaver 27 degrees [facility] Diagnosis Normal sinus rhythm Normal ECG When compared with ECG of 03-FEB-2024 18:59, No significant change was found Confirmed by LYNDSAY GARLAND M.D. ([id number]) on 10/12/2024 12:10:20 PM [facility] 10/10/2024 8:07 PM POINTER HELPER 10/12/2024 12:10 PM POINTER HELPER us Jean Claude Matta Jr., MD ECG ORDERABLES Final R esult Performing Organization Address City/[facility]/ZIP Co de Phone Number [facility] * Troponin T high-sensitivity series (baseline, 2hr, 4hr, 6hr) (10/10/2024 7:55 PM POINTER HELPER) Pathologist [facility] Trop T hs 11 <=14 ng/L Comment: Interpretive Data For further hscTnT resources including the diagnostic algorithm and an aid in interpretation, copy and paste this link: https://nrl.testcatalog.org/show/hsTrop Current Interpretive Data last revised 2020. Testing performed by: [facility], [address] [place] [address], [place]., [address] Blood 10/10/2024 7:55 PM POINTER HELPER 10/10/2024 8:03 PM POINTER HELPER Jean Claude Matta Jr., MD LAB BLOOD ORDERABLES Fi nal Result [facility] [address] [facility] Department [place] [address] * eGFR (10/10/2024 7:55 PM POINTER HELPER) Pathologist [facility] eGFR >90 >=60 mL/min/1. 73 m2 Comment: [...] was last reviewed 2021. Testing performed by: [address] [address] Blood 10/10/2024 7:55 PM POINTER HELPER 10/10/2024 8:03 PM POINTER HELPER us Jean Claude Matta Jr., MD LAB BLOOD ORDERABLES Fi nal Result [facility] [address] [facility] Department [place] [address] * Differential, auto (10/10/2024 7:55 PM POINTER HELPER) Pathologist [facility] Neutrophil abs 4.6 1.5 - 6.5 K/cumm Comment:Testing performed by : [address] [address] Imm gran abs 0.0 0.0 - 0.1 K/cumm [facility] Comment:Testing performed by : [address] [address] Lymphocyte abs 1.5 0.8 - 3.3 K/cumm [facility] Comment:Testing performed by : [address] [address] Monocyte abs 0.7 0.2 - 0.8 K/cumm [facility] Comment:Testing performed by : [address], [place]., [address] Eosinophil abs 0.3 0.0 - 0.5 K/cumm [facility] Comment:Testing performed by : [address] [address] Basophil abs 0.0 0.0 - 0.1 K/cumm [facility] Comment:Testing performed by : [address] [address] Neutrophil pct 64.8 % [facility] Comment: Interpretive Data Percent cell count reference ranges are not reported, since discordance with absolute values may lead to misinterpretation of CBC data. Current Interpretive Data was last revised on 2017. Testing performed by: [address] [address] Imm gran pct 0.4 % [facility] Comment: Interpretive Data Percent cell count reference ranges are not reported, since discordance with absolute values may lead to misinterpretation of CBC data. Current Interpretive Data was last revised on 2017. Testing performed by: [address] [address] Lymphocyte pct 20.8 % [facility] Comment: Interpretive Data Percent cell count reference ranges are not reported, since discordance with absolute values may lead to misinterpretation of CBC data. Current Interpretive Data was last revised on 2017. Testing performed by: [address] [address] Monocyte pct 9.4 % [facility] Comment: Interpretive Data Percent cell count reference ranges are not reported, since discordance with absolute values may lead to misinterpretation of CBC data. Current Interpretive Data was last revised on 2017. Testing performed by: [address] [address] Eosinophil pct 4.2 % [facility] Comment: Interpretive Data Percent cell count reference ranges are not reported, since discordance with absolute values may lead to misinterpretation of CBC data. Current Interpretive Data was last revised on 2017. Testing performed by: [address] [address] Basophil pct 0.4 % [facility] Comment: Interpretive Data Percent cell count reference ranges are not reported, since discordance with absolute values may lead to misinterpretation of CBC data. Current Interpretive Data was last revised on 2017. Testing performed by: [address] [address] Blood 10/10/2024 7:55 PM POINTER HELPER 10/10/2024 8:03 PM POINTER HELPER us Jean Claude Matta Jr., MD LAB BLOOD ORDERABLES Fi nal Result [facility]0 [facility] Department [place] [address] * (ABNORMAL) CBC with auto differential (10/10/2024 7:55 PM POINTER HELPER) WBC 7.1 3.8 - 9.9 K/cumm Comment:Testing performed by : [address] [address] Hgb 10.9(L) 11.9 - 15.5 g/dL [facility] Comment:Testing performed by : [address] [address] Hct 37.0 35.6 - 45.5 % [facility] Comment:Testing performed by : [address] [address] Plt 355 150 - 400 K/cumm [facility] Comment:Testing performed by : [address] [address] MPV 10.5 9.1 - 12.3 fL [facility] Comment:Testing performed by : [address] [address] RBC 5.01 3.90 - 5.20 M/cumm [facility] Comment:Testing performed by : [address] [address] MCV 73.9(L) 81.3 - 96.4 fL [facility] Comment:Testing performed by : [address] [address] MCH 21.8(L) 27.1 - 33.3 pg [facility] Comment:Testing performed by : [address] [address] MCHC 29.5(L) 32.3 - 35.7 g/dL [facility] Comment:Testing performed by : [address] [address] RDW CV 17.1(H) 11.1 - 14.9 % [facility] Comment:Testing performed by : [address] [address] RDW SD 44.8 35.7 - 48.1 fL [facility] Comment:Testing performed by : [address] [address] NRBC abs 0.00 0.00 - 0.01 K/cumm [facility] Comment:Testing performed by : [address] [address] Blood Venous blood specimen / Unknown 10/10/2024 7:55 PM POINTER HELPER 10/10/2024 8:03 PM POINTER HELPER us Jean Claude Matta Jr., MD LAB BLOOD ORDERABLES Fi nal Result [facility] [address] [facility] Department of Laboratories [place], [place] [id number] * (ABNORMAL) Comprehensive metabolic panel (10/10/2024 7:55 PM POINTER HELPER) Sodium 136 135 - 145 mmol/L Comment:Testing performed by : [address] [address] Potassium, pl 3.3 3.3 - 4.9 mmol/L [facility] Comment: Hemolyzed; Potassium value may be falsely elevated by as much as 1.0 mmol/L. Suggest redraw and reanalysis. Testing performed by: [address] [address] Chloride 99 97 - 110 mmol/L [facility] Comment:Testing performed by : [address], [place]., [address] CO2 23 22 - 32 mmol/L [facility] Comment:Testing performed by : [address], [place]., [address] Anion gap 14 2 - 15 mmol/L [facility] Comment:Testing performed by : [address], [place]., [address] BUN 4(L) 6 - 25 mg/dL [facility] Comment:Testing performed by : [address], [place]., [address] Creatinine 0.69 0.60 - 1.10 mg/dL [facility] Comment:Testing performed by : [address], [place]., [address] Glucose 118 70 - 199 mg/dL [facility] Comment: Interpretive Data Fasting glucose >/= 126 [...] classification and Diagnosis of Diabetes Diabetes Care 202; 46: S19-S40. Current interpretive data was last revised 2022. Testing performed by: [address] [address] Calcium 9.7 8.5 - 10.3 mg/dL [facility] Comment:Testing performed by : [address] [address] Bilirubin, total 0.4 0.1 - 1.2 mg/dL [facility] Comment:Testing performed by : [address] [address] Protein, pl 7.0 6.5 - 8.5 g/dL [facility] Comment:Testing performed by : [address], [place]., [address] Albumin 3.7 3.5 - 5.0 g/dL [facility] Comment:Testing performed by : [address] [address] Alk phos 124 40 - 130 Units/L [facility] Comment:Testing performed by : [address] [address] ALT 16 7 - 45 Units/L [facility] Comment:Testing performed by : [address] [address] AST 18 10 - 45 Units/L [facility] Comment: Hemolyzed; result may be falsely elevated Testing performed by: [address] [address] Blood 10/10/2024 7:55 PM POINTER HELPER 10/10/2024 8:03 PM POINTER HELPER us Jean Claude Matta Jr., MD LAB BLOOD ORDERABLES Fi nal Result Performing Organization Address [facility] Co de Phone Number BARBARA[address] [place] [address] * POCT glucose (09/23/2024 10:55 AM POINTER HELPER) Glucose, POC 92 70 - 199 mg/dL Comment:Testing performed by : [address] [address] Glucose comment 1 Use This Result [facility] Comment:Testing performed by : [address] [address] Blood 09/23/2024 10:5 5 AM POINTER HELPER 09/23/2024 10:55 AM POINTER HELPER us Sushant Ramirez DO LAB POCT ORDERABLES - DEVICE F inal Result Performing Organization Address [facility] de Phone Number [address] [place] [address] * POCT glucose (09/23/2024 9:09 AM POINTER HELPER) Glucose, POC 103 70 - 199 mg/dL Comment:Testing performed by : [address] [address] Glucose comment 1 Use This Result [facility] Comment:Testing performed by : [address] [address] Blood 09/23/2024 9:09 AM POINTER HELPER 09/23/2024 9:09 AM POINTER HELPER [employer] LAB POCT ORDERABLES - DEVICE F inal Result Performing Organization Address [facility] de Phone Number BARBARA[address] [address] * POCT glucose (09/23/2024 8:39 AM POINTER HELPER) Glucose, POC 96 70 - 199 mg/dL Comment:Testing performed by : [address] [address] Glucose comment 1 Use This Result [facility] Comment:Testing performed by : [address] [address] Blood 09/23/2024 8:39 AM POINTER HELPER 09/23/2024 8:39 AM POINTER HELPER [employer] LAB POCT ORDERABLES - DEVICE F inal Result Performing Organization Address [facility] de Phone Number [address] [address] * POCT glucose (09/23/2024 7:57 AM POINTER HELPER) Glucose, POC 91 70 - 199 mg/dL Comment:Testing performed by : [address] [address] Glucose comment 1 Use This Result [facility] Comment:Testing performed by : [address] [address] Blood 09/23/2024 7:57 AM POINTER HELPER 09/23/2024 7:57 AM POINTER HELPER [employer] DO LAB POCT ORDERABLES - DEVICE F inal Result Performing Organization Address [facility] Co de Phone Number [facility]0 [facility] [place] [address] * (ABNORMAL) POCT glucose (09/23/2024 7:07 AM POINTER HELPER) Glucose, POC 49(C) 70 - 199 mg/dL Comment:Testing performed by : [address] [address] Glucose comment 1 Use This Result [facility] Comment:Testing performed by : [address] [address] Blood 09/23/2024 7:07 AM POINTER HELPER 09/23/2024 7:07 AM POINTER HELPER Sushant Ramirez DO LAB POCT ORDERABLES - DEVICE F inal Result Performing Organization Address [facility] de Phone Number [facility] [address] [place] [address] * Urinalysis reflex to microscopic and culture Urine (09/23/2024 6:06 AM POINTER HELPER) Color, ur Straw Yellow Comment:Testing performed by : [address] [address] Clarity, ur Clear Clear [facility] Comment:Testing performed by : [address] [address] Specific gravity, ur 1.009 1.003 - 1.030 [facility] Comment:Testing performed by : [address] [address] pH, urine 6.5 [facility] Comment: Interpretive Data U rine pH is affected by diet, medications, systemic acid-base disturbances, and renal tubular function. pH may affect urinary stone formation. For example, urine pH below 6.0 may help reduce the tendency for calcium phosphate stones and pH greater than 6.0 may reduce the tendency for uric acid stone formation. Source: [facility] [employer] Current Interpretive Data was last revised on 2017 Testing performed by: [address] [address] Protein, ur ql Negative Negative [facility] Comment:Testing performed by : [facility], [address] [place] [address], [place]., [address] Glucose, ur ql Negative Negative [facility] Comment:Testing performed by : [facility], [address] [place] [address], [place]., [address] Ketones, ur Negative Negative [facility] Comment:Testing performed by : [address], [place]., [address] Bilirubin, ur Negative Negative [facility] Comment:Testing performed by : [facility], [address] [place] [address], [place]., [address] Blood, ur Negative Negative [facility] Comment:Testing performed by : [address], [place]., [address] Urobilinogen, ur <2.0 <2.0 mg/dL [facility] Comment:Testing performed by : [address], [place]., [address] Nitrite, ur Negative Negative [facility] Comment:Testing performed by : [address], [place]., [address] Leukocyte esterase, ur Negative Negative [facility] Comment:Testing performed by : [address], [place]., [address] UA reflex comment Reflex conditions for microscopic UA and culture not met. [facility] Comment:Testing performed by : [facility], [address] [place] [address], [place]., [address] Urine 09/23/2024 6:06 AM POINTER HELPER 09/23/2024 6:09 AM POINTER HELPER us Jean Claude Matta Jr., MD LAB MICROBIOLOGY - GENE RAL ORDERABLES Final Result [facility]2 [facility] Department of Laboratories [place], [place] [id number] * eGFR (09/23/2024 5:06 AM POINTER HELPER) eGFR 81 >=60 mL/min/1. 73 m2 Comment: [...] was last reviewed 2021. Testing performed by: [address] [address] Blood 09/23/2024 5:06 AM POINTER HELPER 09/23/2024 5:10 AM POINTER HELPER Jean Claude Matta Jr., MD LAB BLOOD ORDERABLES Fi nal Result [facility]6 [facility] Department [place] [address] * (ABNORMAL) Differential, auto (09/23/2024 5:06 AM POINTER HELPER) Neutrophil abs 6.8(H) 1.5 - 6.5 K/cumm Comment:Testing performed by : [address] [address] Imm gran abs 0.1 0.0 - 0.1 K/cumm [facility] Comment:Testing performed by : [address] [address] Lymphocyte abs 0.8 0.8 - 3.3 K/cumm [facility] Comment:Testing performed by : [address] [address] Monocyte abs 0.6 0.2 - 0.8 K/cumm [facility] Comment:Testing performed by : [address] [address] Eosinophil abs 0.0 0.0 - 0.5 K/cumm [facility] Comment:Testing performed by : [address] [address] Basophil abs 0.0 0.0 - 0.1 K/cumm [facility] Comment:Testing performed by : [address] [address] Neutrophil pct 81.8 % [facility] Comment: Interpretive Data Percent cell count reference ranges are not reported, since discordance with absolute values may lead to misinterpretation of CBC data. Current Interpretive Data was last revised on 2017. Testing performed by: [address] [address] Imm gran pct 0.7 % [facility] Comment: Interpretive Data Percent cell count reference ranges are not reported, since discordance with absolute values may lead to misinterpretation of CBC data. Current Interpretive Data was last revised on 2017. Testing performed by: [address] [address] Lymphocyte pct 9.3 % [facility] Comment: Interpretive Data Percent cell count reference ranges are not reported, since discordance with absolute values may lead to misinterpretation of CBC data. Current Interpretive Data was last revised on 2017. Testing performed by: [address] [address] Monocyte pct 7.7 % [facility] Comment: Interpretive Data Percent cell count reference ranges are not reported, since discordance with absolute values may lead to misinterpretation of CBC data. Current Interpretive Data was last revised on 2017. Testing performed by: [address] [address] Eosinophil pct 0.5 % [facility] Comment: Interpretive Data Percent cell count reference ranges are not reported, since discordance with absolute values may lead to misinterpretation of CBC data. Current Interpretive Data was last revised on 2017. Testing performed by: [address] [address] Basophil pct 0.0 % [facility] Comment: Interpretive Data Percent cell count reference ranges are not reported, since discordance with absolute values may lead to misinterpretation of CBC data. Current Interpretive Data was last revised on 2017. Testing performed by: [address] [address] Blood 09/23/2024 5:06 AM POINTER HELPER 09/23/2024 5:10 AM POINTER HELPER us Jean Claude Matta Jr., MD LAB BLOOD ORDERABLES Fi nal Result [facility] [address] [facility] Department [place] [address] * (ABNORMAL) CBC with auto differential (09/23/2024 5:06 AM POINTER HELPER) WBC 8.3 3.8 - 9.9 K/cumm Comment:Testing performed by : [address] [address] Hgb 12.5 11.9 - 15.5 g/dL [facility] Comment:Testing performed by : [address] [address] Hct 41.7 35.6 - 45.5 % [facility] Comment:Testing performed by : [address] [address] Plt 207 150 - 400 K/cumm [facility] Comment:Testing performed by : [address] [address] MPV 11.7 9.1 - 12.3 fL [facility] Comment:Testing performed by : [address] [address] RBC 5.66(H) 3.90 - 5.20 M/cumm [facility] Comment:Testing performed by : [address] [address] MCV 73.7(L) 81.3 - 96.4 fL [facility] Comment:Testing performed by : [address] [address] MCH 22.1(L) 27.1 - 33.3 pg [facility] Comment:Testing performed by : [address] [address] MCHC 30.0(L) 32.3 - 35.7 g/dL [facility] Comment:Testing performed by : [address] [address] RDW CV 18.3(H) 11.1 - 14.9 % [facility] Comment:Testing performed by : [address] [address] RDW SD 45.1 35.7 - 48.1 fL [facility] Comment:Testing performed by : [address] [address] NRBC abs 0.00 0.00 - 0.01 K/cumm [facility] Comment:Testing performed by : [address] [address] Blood 09/23/2024 5:06 AM POINTER HELPER 09/23/2024 5:10 AM POINTER HELPER Jean Claude Matta Jr., MD LAB BLOOD ORDERABLES Fi nal Result [facility] [address] [facility] Department [place] [address] * (ABNORMAL) Comprehensive metabolic panel (09/23/2024 5:06 AM POINTER HELPER) Sodium 139 135 - 145 mmol/L Comment:Testing performed by : [address] [address] Potassium, pl 3.4 3.3 - 4.9 mmol/L [facility] Comment:Testing performed by : [address] [address] Chloride 103 97 - 110 mmol/L [facility] Comment:Testing performed by : [address] [address] CO2 24 22 - 32 mmol/L [facility] Comment:Testing performed by : [address] [address] Anion gap 12 2 - 15 mmol/L [facility] Comment:Testing performed by : [address] [address] BUN 26(H) 6 - 25 mg/dL [facility] Comment:Testing performed by : [address] [address] Creatinine 0.80 0.60 - 1.10 mg/dL [facility] Comment:Testing performed by : [address] [address] Glucose 77 70 - 199 mg/dL [facility] [...] was last revised 2022. Testing performed by: [address] [address] Calcium 9.5 8.5 - 10.3 mg/dL [facility] Comment:Testing performed by : [address] [address] Bilirubin, total 0.5 0.1 - 1.2 mg/dL [facility] Comment:Testing performed by : [address] [address] Protein, pl 7.0 6.5 - 8.5 g/dL [facility] Comment:Testing performed by : [address] [address] Albumin 3.7 3.5 - 5.0 g/dL [facility] Comment:Testing performed by : [address] [address] Alk phos 82 40 - 130 Units/L [facility] Comment:Testing performed by : [address] [address] ALT 11 7 - 45 Units/L [facility] Comment:Testing performed by : [address], [address] AST 11 10 - 45 Units/L [facility] Comment:Testing performed by : [address] [address] Blood 09/23/2024 5:06 AM POINTER HELPER 09/23/2024 5:10 AM POINTER HELPER Jean Claude Matta Jr., MD LAB BLOOD ORDERABLES Fi nal Result Performing Organization Address [facility] de Phone Number ROS[facility] [place] [address] * POCT glucose (09/23/2024 5:04 AM POINTER HELPER) Glucose, POC 71 70 - 199 mg/dL Comment:Testing performed by : [address] [address] Glucose comment 1 Use This Result [facility]T Comment:Testing performed by : [address] [address] Glucose comment 2 RN/MD Notified [facility] Comment:Testing performed by : [address] [address] Blood 09/23/2024 5:04 AM POINTER HELPER 09/23/2024 5:04 AM POINTER HELPER Notinfile Unknown LAB POCT ORDERABLES - DEVICE F inal Result Performing Organization Address [facility] de Phone Number ROSALBA [address] [address] * Diagnostic Mammogram Bilateral W Sukumar (04/09/2024 [...] Gen Anderson M.D. RL: REBECCA Report ID: [id number] Reading Location: [facility] us Haleigh Young MD IMG MAMMO PROCEDURE S Final Result * COLONOSCOPY (10/28/2023 3:01 PM POINTER HELPER) Anatomical Region Laterality Modality Other Narrative Procedure Note Jammie Burdick MD - 10/28/2023 3:01 PM CST [facility] GI ENDOSCOPY Patient Name: Dipti Luna Procedure Date: 10/28/2023 3:01 PM Date of : 1960 Admit Type: Outpatient Age: 63 Gender: Female Attending MD: Jammie Burdick M.D. Room: [facility] ENDOSCOPY ROOM 06 Note Status: Finalized [...] The scope was passed under direct vision.The [id number]-[id number] colonoscope was introduced through theanus and advanced [...] On: 10/28/2023 3:01 PM Recognized by the [employer] for promoting quality in endoscopy Jammie Burdick MD ENDOSCOPY PROCEDURES Tash l Result * Hepatitis C antibody Blood (08/09/2023 1:28 PM POINTER HELPER) Hep C Ab Nonreactive Nonreactive [facility] Comment: Interpretive Data Nonreactive: Antibodies to HCV [...] revised on 2019. Blood 08/09/2023 1:28 PM POINTER HELPER 08/09/2023 6:31 PM POINTER HELPER us Jammie Burdikc MD LAB MICROBIOLOGY - [facility] L ORDERABLES Final Result [facility] [address] [facility] Department [place] [address] * DEXA Axial Skeleton Bone Density Multi Site (02/22/2023 10:45 AM CDT) Anatomical Region Laterality Modality Body N/A Mammography 02/22/2023 3:45 PM CDT Narrative 02/22/2023 3:45 PM CDT EXAM DESCRIPTION: DEXA AXIAL SKELETON BONE DENSITY 1 OR MORE SITES REASON FOR STUDY: 62 y/o year old F with given history of screening. Hspt Tutor/Model: Revo Round A (S/N [id number]) CLINICAL INFORMATION: Current height: 64 inches Maximum [...] Elodia Recinos M.D. TW: TW Report ID: [id number] Reading Location: [id number] Procedure Note Elodia Recinos MD - 02/22/2023 EXAM DESCRIPTION: DEXA AXIAL SKELETON BONE DENSITY 1 OR MORE SITES REASON FOR STUDY: 62 y/o year old F with given history of screening. Hspt Tutor/Model: Revo Round A (S/N [id number]) CLINICAL INFORMATION: Current height: 64 inches Maximum [...] Electronically signed by Elodia Recinos M.D. TW: BEV Report ID: [id number] Reading Location: [place] [address] Brenda Stewart NP IMG DXA PROCEDURES Final Result * Pap and High Risk HPV, reflex to Genotyping (12/22/2022 7:56 AM CDT) Thin prep (Pap test) 12/22/2022 7:56 AM CDT 12/23/2022 7:56 AM CDT Narrative PATHOLOGY [facility] - 12/28/2022 11:38 AM CDT [facility] Department of Pathology [address] [place] [id number] Final Report with Addendum Note to Patients: [...] the details. Patient Name: DIPTI LUNA Address: [address] [place] [address], [address] [place] [address] Gender: F : 1960 (Age: 62) Service: Location: N : [id number] [facility] #: [id number] Patient Type: [facility] SPECIMEN Taken: 12/22/2022 Received: 12/23/2022 Accessioned:: 12/24/2022 Reported: 12/28/2022 Physician(s): Nia Alfred M.D. [facility] Diagnosis: SOURCE OF SPECIMEN SCREENING THIN [...] Golden(ASCP)Report Electronically Reviewed and Signed Out By LEANDRO Golden(ASCP) 12/27/2022 09:52:45 Specimen(s) Received: A: SCREENING THIN [...] determined by the Surgical Pathology Department at [facility] as part of an ongoing clinical quality rn program and in compliance with federally mandated [...] characteristics determined by the Surgical Pathology Department [facility]. It has not been cleared or approved by the U. S. Food and Drug Administration. Nia Alfred MD LAB CYTOLOGY ORDERABLES F inal Result PATHOLOGY [facility] from Last 3 Months or Most Recently Relevant to Health Maintenance Insurance [facility] IDMT [employer]ETNA [facility] ADVANTRA Advance Directives For more information, please contact: [phone] Documents on File Type Date Recorded Patient Synthetic Department Supervisor Expl anation ADVANCE DIRECTIVE 02/01/2024 1:59 PM POLST - Phys Order for PT Preferences ADVANCE DIRECTIVE 01/30/2024 1:03 PM Power of Dumper Operator-Medical ADVANCE DIRECTIVE 06/02/2022 12:57 PM Jami r of Dumper Operator-Medical ADVANCE DIRECTIVE 06/02/2022 12:56 PM Yoon ng [...] 4:56 PM 05/31/2022 2:29 PM Care Teams [employer] Education Teacher Relationship Specialty Start Date End Date Haleigh Young MD [address] [place] [address] PCP - General Family Medicine 11/24/21 Luis Saunders MD Referring Physician Gastroenterology 07/31/18 Jammie Burdick MD Referring Physician Gastroenterology 07/31/18 Ervin Garcia MD [address] [place] [address] Consulting Physician Pulmonary Disease 07/08/20 Jean Carlos Berrios MD 2015 [facility] [place] [address] Referring Physician Obstetrics and Gynecology 02/23/22 Rosa Herr, MIRTA [address] [place] [address] [address] [place] [address] Women Specialist 06/03/22 Braden Sherwood DO [address] [facility] [address] [place] [address] Referring Physician Psychiatry 06/04/22 Ladonna Martinez, COLLIN [address] [facility] [address] [place] [address] Nurse Practitioner Nurse Practitioner 10/31/23 Kamila Witt NP [address] [place] [address] Nurse Practitioner Hospice and Palliative Medicine 03/01/24
== END 2024-11-23 19:47 | disposition left against medical advice (07) ==
LOC: ANHED 19:46
PROVIDERS: PCP Family Medicine
DX: R06.02 Shortness of breath (principal)
CPT/HCPCS: 99199

== ENCOUNTER 2024-11-26 09:49 | Emergency (ER) | payer MEDICARE, MEDICAID, SELFPAY ==
[2024-11-26] VITALS (12 sets, daily range): BP systolic 122–136; BP diastolic 71–104; PULSE 78–98; RESP 15–26; TEMP 36.4–36.7; O2SAT 89–100
--- NOTE | ~2024-11-26 | XR_ITS ---
XR chest 2V 11/26/2024 15:28 Indication: Shortness of breath Procedure: PA and lateral views of the chest Comparison: Findings: Heart size normal. There are chronic interstitial infiltrates bilaterally. There is chronic upper lobe scarring bilaterally. Chronic blunting of the costophrenic recesses bilaterally which may represent small effusions or pleural thickening. No acute focal pneumonia, edema or pneumothorax. Impression: 1: No acute cardiopulmonary disease. Stable chronic bilateral interstitial infiltrates and upper lobe scarring. Reviewed, dictated and finalized at location B. Impression: 1: No acute cardiopulmonary disease. Stable chronic bilateral interstitial infi ltrates and upper lobe scarring.
--- OUTSIDE RECORDS SUMMARY | 2024-11-26 11:00 | XMS_ITS ---
Author Organization [facility] Address [address] [place] [address] Care Team Providers Care Financial Operations Consultant Name Role Phone Diane Burgess Primary Care Provider Nuvia Ireland [phone] Encounters Encounter Location Date Provider Diagnosis [place] [address] [place] [address] 11/09/2024 Nuvia Ireland Plan Of Treatment No Information Progress Notes * Dipti LUNADOB:1960 (64 yo F)Acc No.[id number]:11/09/2024 Patient: Dipti GLEZ :1960 A ge:64 Y S ex:Female Address:[address] [place], [address] * true * Date: Generated for Printi ng/Faxing/eTransmitting on: 0 11/26/2024 11:00 AM CDT
--- OUTSIDE RECORDS SUMMARY | 2024-11-26 11:01 | XMS_ITS | Referral Summary ---
Author Organization [facility] Address [address] [place] [address] Care Team Providers Care Clinical Account Executive Name Role Phone Maya Mcclain MD Primary Care Provider [phone] Source Comments [facility],non-owned Affiliates and Associated Physician Practices is amultiple site organization consisting of ambulatory clinics and hospital sitesin [place], [place], [place] and [place]. This disclosure is being madepursuant to the Care Everywhere program and may not contain all information available regarding this patient. Last updated 18.[facility] Allergies Active Allergy Reactions Criticality Noted Date [...] of Treatment Not on file Care Teams Clinical Account Executive Relationship Specialty Start Date End Date Maya Mcclain MD [address] [place] [phone] PCP - General 10/31/20
--- OUTSIDE RECORDS SUMMARY | 2024-11-26 11:01 | XMS_ITS | Referral Summary ---
Author Organization [facility] Address [address] [place] [address] Care Team Providers Care Extra Gang Supervisor Name Role Phone Luis Saunders MD Unavailable [phone] Jammie Burdick MD Unavailable [phone] Ervin Garcia MD Unavailable [phone] Haleigh Young MD Primary Care Provi naye Jean Carlos Berrios MD Unavailable [phone] Rosa Herr RN Unavailable Braden Sherwood DO Unavailable [phone] Ladonna Martinez SUPERVISOR [employer] Unavailable [phone] Kamila Witt SUPERVISOR [employer] Unavailable [phone] Encounters Date Type Department Care Team Description 11/26/2024 Nurse Triage [facility] Family Medicine [address] [place] [phone] Haleigh Young MD 11/23/2024 Nurse Triage [facility] Family Medicine [address] [place] [phone] Haleigh Young MD 11/23/2024 Telephone [facility] Pulmonology [facility] [address] [place] [phone] Syl Jaimes, MIRTA 11/19/2024 Orders Only [address] [phone] Haleigh Young MD Chronic respiratory failure with hypoxia (HCC) (Primary Dx) 11/14/[address] [phone] Haleigh Young MD Medical Question/Miscellaneo us 11/09/[address] [phone] Haleigh Young MD Medical Question/Miscellaneo us 10/29/2024 Orders Only [address] [phone] Haleigh Young MD Chronic respiratory failure with hypoxia (HCC) (Primary Dx) 10/29/[address] [phone] Haleigh Young MD 10/29/2024 1:30 PM [employer] OPERATOR Office Visit [address] [phone] Heather Arteaga PA Acute bilateral lower abdominal pain (Primary Dx); Chronic bullous emphysema (CMS/HCC) (HCC); Chronic respiratory failure with hypoxia (HCC); Class 1 obesity due to excess calories with serious comorbidity and body mass index (BMI) of 30.0 to 30.9 in adult 10/24/2024 10:55 AM [employer] OPERATOR Lab [facility] Office Building [address] [place] [address] Hyperglycemia; Iron deficiency anemia due to chronic blood loss 10/24/2024 10:30 AM [employer] OPERATOR Office Visit [facility] Pulmonary [address] [place] [phone] Ervin Garcia MD Chronic obstructive pulmonary disease, unspecified COPD type (HCC) (Primary Dx); PEREZ (dyspnea on exertion); Chronic respiratory failure with hypoxia (HCC) 10/17/2024 10:45 AM [employer] OPERATOR Office Visit [address] [phone] Haleigh Young MD Narcotic dependence (HCC) (Primary Dx); Benzodiazepine dependence (HCC); Generalized anxiety disorder; Iron deficiency anemia due to chronic blood loss; Hyperglycemia; Class 1 obesity due to excess calories with serious comorbidity and body mass index (BMI) of 32.0 to 32.9 in adult 10/16/2024 [facility] Outreach [address] [address] Sally Castañeda MA 10/15/2024 Nurse Triage [address] [phone] Haleigh Young MD 10/12/2024 Orders Only [address] [phone] Heather rAteaga PA 10/12/2024 [facility] ED Outreach [address] [address] Sally Castañeda MA 10/11/2024 Telephone [facility] [address] [place] [address] [place] [phone] Kamila Witt NP 10/11/2024 Orders Only Hospitalists [address] [facility] [address] [place] [phone] Manuelito Baltazar MD 10/11/[address] [phone] Haleigh Young MD Med Refill 10/11/[address] [phone] Haleigh Young MD Appointment Request 10/11/2024 3:06 AM [employer] OPERATOR - 10/11/2024 7:25 AM [facility] Emergency [facility] Emergency Department [facility] [place] [address] Jean Claude Matta Jr., MD Paruchuri, Tharun, MD Narcotic dependence (HCC) (Primary Dx); Benzodiazepine dependence (HCC); Atypical chest pain; End stage COPD (HCC); Palliative care patient Discharge Disposition: Discharge to home or self care 10/10/2024 Documentation [facility] Palliative Care [address] [place] [phone] Kamila Witt NP 10/02/2024 Orders Only [facility] Palliative Care [address] [place] [address] Kamila Witt NP Chronic bilateral low back pain with bilateral sciatica; Spinal stenosis of lumbar region at multiple levels 09/26/[address] [phone] Haleigh Young MD Poor Memory/Concentration 09/24/[address] [phone] Haleigh Young MD 09/23/2024 5:01 AM [facility] - 09/23/2024 11:05 AM [facility] Emergency [facility] Emergency Department [facility] [place] [address] Sushant Ramirez DO Medication refill (Primary Dx); Chronic pain syndrome; Chronic bilateral low back pain with bilateral sciatica; Spinal stenosis of lumbar region at multiple levels; Hypoglycemia Discharge Disposition: Discharge to home or self care 09/22/2024 Telephone [facility] Palliative Care [address] [place] [phone] Kamila Witt NP 09/18/2024 Orders Only [facility] Palliative Care [address] [place] [address] Eduar, Kamila A., SUPERVISOR [employer] COPD exacerbation (HCC) (Primary Dx) 09/10/2024 Orders Only [facility] Palliative Care [address] [place] [phone] Kamila Witt NP Chronic bilateral low back pain with bilateral sciatica; Spinal stenosis of lumbar region at multiple levels 09/07/2024 1:35 PM [employer] OPERATOR - 09/07/2024 1:45 PM [employer] OPERATOR Emergency [facility] Emergency Department [address] [place] [address] Discharge Disposition: Left without being seen 09/06/2024 Telephone [facility] Family Medicine [address] [phone] Haleigh Young MD Shortness of Breath 08/30/2024 Telephone [facility] Pulmonary [place] [address] [facility] [address] [place] [address] Ervin Garcia MD Sick Call [...] 01/28/2024 Assessment & Plan (07/27/2024 3:57 PM [employer] OPERATOR): Symptom duration 2 weeks Recent covid, flu [...] 11/01/2023 Assessment & Plan (11/01/2023 10:01 AM [employer] OPERATOR): Chronic, persistent Encouraged to follow up with pain management Encouraged to update me after the visit Continue lyrica as prescribed Urinary incontinence 11/01/2023 Assessment & Plan (11/01/2023 10:05 AM [employer] OPERATOR): Chronic, persistent Will place referral to urology for guidance Update me after the visit Incontinence of feces with fecal urgency Assessment & Plan (11/01/2023 10:02 AM [employer] OPERATOR): Chronic, persistent Encouraged to follow up with Dr Burdick Update me after the visit Call for questions Chronic respiratory failure with hypoxia Assessment & Plan (06/28/2024 11:25 AM CDT): Chronic. Stable. Continue supplemental oxygen, 2 L. continue to follow with pulmonology. Assessment & Plan (04/12/2024 1:17 PM CDT): Chronic, persistent Oxygen level improved today Will reach out to her field artillery operations specialist given her numbers, I do worry [...] was reviewed with the patient and her customer experience intern Assessment & Plan (02/09/2024 11:30 AM CDT): [...] 01/26/2022 Assessment & Plan (10/29/2024 1:54 PM [employer] OPERATOR): BMI Follow-up includes: education provided. Assessment & Plan (10/17/2024 12:08 PM [employer] OPERATOR): Chronic, stable BMI Follow-up includes: Encouraged healthy [...] and cardizem Continue to follow with her frame opener Update me with any changes Call for [...] 11/24/2021 Assessment & Plan (11/01/2023 10:01 AM [employer] OPERATOR): Chronic, persistent Encouraged to follow up with [...] PM CDT): Chronic, stable Continue valtrex through [employer] History of Lena fundoplication 08/17/2021 History of [...] Continue Doug Set up follow-up with her frame opener as well Update me with any changes Call for questions or concerns Assessment & Plan (05/21/2022 6:17 PM CDT): With SVT during her hospital stay at [facility] Continue doug Encouraged follow up with cardiology [...] please contact the office. I strongly encourage [employer] sign ups. It can facilitate communication flow. [...] please contact the office. I strongly encourage [employer] sign ups. It can facilitate communication flow. [...] monitor Assessment & Plan (09/16/2020 3:02 PM [employer] OPERATOR): Unclear etiology She is not specific on [...] pt Assessment & Plan (09/16/2020 3:01 PM [employer] OPERATOR): Currently only taking effexor contineu current management Assessment & Plan (07/15/2020 8:50 AM [employer] SE[employer] OPERATOR): We will start lyrica 150 mg BID [...] groups. Assessment & Plan (11/01/2023 10:06 AM [employer] OPERATOR): Chronic, worse Encouraged to reach out to [...] concerns Assessment & Plan (07/15/2020 8:48 AM [employer] OPERATOR): We will continue this current regime, she [...] 07/08/2020 Assessment & Plan (11/01/2023 10:01 AM [employer] OPERATOR): Chronic, persistent Encouraged to follow up with [...] of lumbar spine. Continue pain management with Hope 5/325 mg q.6 p.r.n., lidocaine patch, Flexeril 5 mg t.i.d. p.r.n.. PT/OT care. Patient need to follow up with Dr. Delatorre outpatient Assessment & Plan (11/24/2021 10:34 AM CDT): Will check xray We discussed PT- she is unable to afford it She is going home exercises Continue supportive care Further guidance once we have the results Assessment & Plan (07/15/2020 8:48 AM [employer] SE[employer] PLANT OPERATOR): Recommend THC, we will seek out a [...] questions Assessment & Plan (07/15/2020 8:49 AM [employer] OPERATOR): Remeron and effecor Taking only 150 mg [...] (09/07/2018): Added automatically from request for surgery [id number] Assessment & Plan (03/29/2023 4:54 PM CDT): [...] inhalers Assessment & Plan (09/16/2020 3:02 PM [employer] OPERATOR): Continue seeing pulm backup sawyer antibiotic and steroids Assessment & Plan (07/08/2020 8:35 AM CDT): Continue to follow-up with pulm History of aspiration pneumonia 05/18/2018 Iron deficiency anemia, unspecified 03/20/2018 Assessment & Plan (11/01/2023 10:09 AM [employer] OPERATOR): Chronic, stable Managed by heme/onc Update me [...] has a call in to the new frame opener to see if she can follow-up sooner [...] CDT): Now uses vaping Chronic bullous emphysema ([facility]) 10/26/2016 Overview (12/17/2016): Bullous emphysema Assessment & [...] Garcia Assessment & Plan (07/15/2020 8:47 AM [employer] OPERATOR): Likely resulting in her SOB with the change in medications Continue inhaler and seeing pulm History of gastric ulcer 08/04/2015 Assessment & Plan (03/29/2023 4:54 PM CDT): Resolved Continue Nexium Update me with changes or concerns Continue to follow with GI History of fall Spinal stenosis of lumbar region at multiple lev els Assessment & Plan (11/01/2023 10:02 AM [employer] OPERATOR): Chronic, persistent Encouraged to follow up with [...] (05/30/2022): Added automatically from request for surgery [id number] Diverticulitis large intesti ne w/o perforation or [...] & Plan (01/26/2022 12:51 PM CDT): On xahaleyx, shravan Encouraged to follow up with her psychiatrist, [...] CDT): Chronic, persistent Labs reviewed from her sterile processing manager Referral to hematology pending Update me after [...] (09/07/2018): Added automatically from request for surgery [id number] Gastric ulcer 08/04/2015 03/29/2023 Immunizations Immunization Administration [...] materials from doctor or pharmacy Sometimes 09/22/2023 [facility] Utilities Answer Date Recorded In the past 12 months has th e [employer], gas, oil, or water company threatened to [...] often do you attend chur ch or yazidism services? Never 10/18/2024 Do you belong to any clubs o r organizations such as muslim groups, unions, fraternal or athletic groups, or [...] place to sleep or slept in a halfway (including now)? No 10/17/2023 Housing Stability Vital Sign Answer Lucas e Recorded In the last 12 months, was t here a time when you were not able to pay the mortgage or rent on time? No 10/18/2024 In the past 12 months, how m any times have you moved where you were living? 1 10/18/2024 At any time in the past 12 m [address] [place], were you homeless or living in a halfway (including now)? No 10/18/2024 Personal Safety Answer Date Recorded Have you ever been in or are you currently in a harmful physical or emotional relationship or is someone making you feel afraid or unsafe? Denies 10/10/2024 Comments No Sex and Gender Information Value Date Recorded Sex Assigned at Not on file Legal Sex Female 1:41 PM [employer] OPERATOR Gender Identity Not on file Sexual Orientation Not on file Occupation Industry Job Start Date Job End Date DISABILITY Not on file Not on file Not on file Last Filed Vital Signs Vital Sign Reading Time Taken Comments Blood Pressure 124/78 10/29/2024 1:23 PM [employer] OPERATOR Pulse 97 10/29/2024 1:23 PM [employer] OPERATOR Temperature 36.7 C (98.1 F) 10/29/2024 1:23 PM [employer] OPERATOR Respiratory Rate 16 10/29/2024 1:23 PM [employer] OPERATOR Oxygen Saturation 98% 10/29/2024 1:23 PM [employer] OPERATOR Inhaled Oxygen Concentration - - Weight 80.7 kg (178 lb) 10/29/2024 1:23 PM [employer] OPERATOR Height 162.6 cm (5' 4 ) 10/29/2024 1:23 PM [employer] OPERATOR Body Mass Index 30.55 10/29/2024 1:23 PM [employer] OPERATOR Plan of Treatment Not on file Goals Goal Patient Goal Type Associated Problems Recent Progress Patient-Stated? Author [facility] General Goal - Patient is knowledgeable about condition when worsening and how to respond ACO Care Management On track(2023 1:13 PM [employer] OPERATOR) No Rosa Herr, RN Note: Problem: [...] ACO Care Management On track(2024 10:21 AM [employer] OPERATOR) No Bev Du LCSW Note: Problem: [...] as needed Medical Devices Implanted Type Area Bdc Manager Device Identifier Shelf Expiration Date Model / Serial / Lot Left Foot Screws Foot Procedures Procedure Name Priority Date/Time Associated Diagnosis Comments ALBUMIN CREATININE RATIO, URINE Routine 10/24/2024 11:10 AM [employer] OPERATOR Hyperglycemia IRON PROFILE W/ IBC Routine 10/24/2024 1 1:07 AM [employer] OPERATOR Iron deficiency anemia due to chronic blood loss HEMOGLOBIN A1C Routine 10/24/2024 11:07 AM [employer] OPERATOR Hyperglycemia TROPONIN T HIGH-SENSITIVITY 2-HOUR Timed 10/10/2024 9:50 PM [employer] OPERATOR XR CHEST 1 VIEW ED 10/10/2024 8:17 PM [employer] OPERATOR ECG 12-LEAD STAT 10/10/2024 8:07 PM [employer] OPERATOR EGFR STAT 10/10/2024 7:55 PM [employer] OPERATOR DIFFERENTIAL AUTO STAT 10/10/2024 7:5 5 PM [employer] OPERATOR TROPONIN T HIGH-SENSITIVITY SERIES (BASELINE, 2HR, 4HR, 6HR) STAT 10/10/2024 7:55 PM [employer] OPERATOR COMPREHENSIVE METABOLIC PANEL STAT 10/10/2024 7:55 PM [employer] OPERATOR CBC WITH AUTO DIFFERENTIAL STAT 10/10/2024 7:55 PM [employer] OPERATOR POCT GLUCOSE DEVICE Routine 09/23/2024 1 0:55 AM [employer] OPERATOR POCT GLUCOSE DEVICE Routine 09/23/2024 9 :09 AM [employer] OPERATOR POCT GLUCOSE DEVICE Routine 09/23/2024 8 :39 AM [employer] OPERATOR POCT GLUCOSE DEVICE Routine 09/23/2024 7 :57 AM [employer] OPERATOR POCT GLUCOSE DEVICE Routine 09/23/2024 7 :07 AM [employer] OPERATOR URINALYSIS AND REFLEX TO MICROSCOPIC AND CULTURE STAT 09/23/2024 6:06 AM [employer] OPERATOR EGFR STAT 09/23/2024 5:06 AM [employer] OPERATOR DIFFERENTIAL AUTO STAT 09/23/2024 5:0 6 AM [employer] OPERATOR COMPREHENSIVE METABOLIC PANEL STAT 09/23/2024 5:06 AM [employer] OPERATOR CBC WITH AUTO DIFFERENTIAL STAT 09/23/2024 5:06 AM [employer] OPERATOR POCT GLUCOSE DEVICE Routine 09/23/2024 5 :04 AM [employer] SE[employer] PL[employer] OPERATOR DIAGNOSTIC MAMMOGRAM BILATERAL W SUKUMAR Schedule Routine, Read Routine (OP Routine) 04/09/2024 8:33 AM CDT Follow-up examination of abnormal mammogram COLONOSCOPY 10/28/2023 3:01 PM [employer] OPERATOR HEPATITIS C ANTIBODY Routine 08/09/2023 1:28 PM [employer] OPERATOR DEXA AXIAL SKELETON BONE DENSITY 1 OR [...] Albumin Creatinine Ratio, Urine (10/24/2024 11:10 AM [employer] OPERATOR) Albumin Ur <12.0 mg/L Comment: Interpretive Data No reference range established. Current interpretive data was last revised 2019. Testing performed by: [address] [address] Creatinine Ur 33.4 mg/dL [facility] Comment: Interpretive Data No reference range established. Current interpretive data was last revised 2019. Testing performed by: [address] [address] Albumin Creatinine Ratio, Ur <36(H) 1 - 29 mg/g [facility] Comment:Testing performed by : [address] [address] Urine 10/24/2024 11:1 0 AM [employer] OPERATOR 10/24/2024 11:54 AM [employer] OPERATOR us Haleigh Young MD LAB URINE ORDERABLE S Final Result [facility] [address] [facility] Department [place] [address] * (ABNORMAL) Iron profile w/ IBC (10/24/2024 11:07 AM [employer] SE[employer] PLANT OPERATOR) Iron 45 35 - 145 mcg/dL Comment:Testing performed by : [address] [address] TIBC 271 250 - 400 mcg/dL [facility] Comment:Testing performed by : [address] [address] Transferrin saturation 17(L) 20 - 50 % [facility] Comment:Testing performed by : [address] [address] Blood 10/24/2024 11:0 7 AM [employer] SE[employer]ANT OPERATOR 10/24/2024 11:53 AM [employer] SE[employer] PLANT OPERATOR us Haleigh Young MD LAB BLOOD ORDERABLE S Final Result Performing Organization Address [facility] de Phone Number [place] [phone] [facility] [place] [address] * Hemoglobin A1c (10/24/2024 11:07 AM [employer] SE[employer] PLANT OPERATOR) Hgb A1C 5.4 4.0 - 5.6 % Comment:Testing performed by : [address] [address] Estimated Average Glucose 108 mg/dL [facility] Comment: The ADA recommends reporting an estimated Average Glucose (eAG) with all Hemoglobin A1c results using the equation derived from a study of 507 normal and diabetic adults. Minority populations were underrepresented and children were not included. (Diabetes Care 31:4434-8453, 2008). The eAG is not equivalent to a fasting glucose. Testing performed by: [address] [address] Blood 10/24/2024 11:0 7 AM [employer] SE[employer] PLANT OPERATOR 10/24/2024 11:57 AM [employer] SE[employer]ATION PLANT OPERATOR us Haleigh Young MD LAB BLOOD ORDERABLE S Final Result Performing Organization Address [facility] de Phone Number [place] [phone] Department [place] [address] * Troponin T high-sensitivity 2-hour (10/10/2024 9:50 PM [employer] SE[employer] OPERATOR) Trop T hs 10 <=14 ng/L Comment: Interpretive Data For further hscTnT resources including the diagnostic algorithm and an aid in interpretation, copy and paste this link: https://nrl.testcatalog.org/show/hsTrop Current Interpretive Data last revised 2020. Testing performed by: [facility], [address] [place] [address]., [address] Trop T hs delta -1 ng/L [facility] Comment:Testing performed by : [address] [address] Trop T hs interp Insignificant [facility] Comment:Testing performed by : [address] [address] Blood 10/10/2024 9:50 PM [employer] SE[employer] PLANT OPERATOR 10/10/2024 10:02 PM [employer] SE[employer] PLANT OPERATOR us Jean Claude Matta Jr., MD LAB BLOOD ORDERABLES Fi nal Result [facility] [address] [facility] [place] [address] * XR Chest 1 Vw Portable (if patient condition/safety warrant portable) (10/10/2024 8:17 PM [employer] SE[employer] PLANT OPERATOR) Anatomical Region Laterality Modality Body, Chest N/A Computed Radiogr aphy 10/10/2024 9:08 PM [employer] SE[employer] PLANT OPERATOR Narrative 10/10/2024 9:11 PM [employer] SE[employer]ANT OPERATOR EXAM DESCRIPTION: XR CHEST 1 VIEW REASON [...] Ac Mcdonald M.D. NS: NS Report ID: [id number] Reading Location: [place] [address] Procedure Note Ac Mcdonald MD - 10/10/2024 [...] Ac Mcdonald M.D. NS: NS Report ID: [id number] Reading Location: [id number] us Jean Claude Matta Jr., MD IMG XR PROCEDURES Final Result * ECG 12 lead (10/10/2024 8:07 PM [employer] SE[employer] PLANT OPERATOR) Ventricular Rate EKG/Min 79 BPM [facility] Atrial Rate 79 BPM [facility] LA-Interval (MSEC) 170 ms [facility] QRS-Interval (MSEC) 72 ms [facility] QT-Interval (MSEC) 398 ms [facility] QTc 456 ms [facility] P [place] 57 degrees [facility] R [place] 21 degrees [facility] T [place] 27 degrees [facility] Diagnosis Normal sinus rhythm Normal ECG When compared with ECG of 03-FEB-2024 18:59, No significant change was found Confirmed by LYNDSAY GARLAND M.D. ([id number]) on 10/12/2024 12:10:20 PM [facility] 10/10/2024 8:07 PM [employer] SE[employer] OPERATOR 10/12/2024 12:10 PM [employer] SE[employer] PLANT OPERATOR us Jean Claude Matta Jr., MD ECG ORDERABLES Final R esult [facility] * Troponin T high-sensitivity series (baseline, 2hr, 4hr, 6hr) (10/10/2024 7:55 PM [employer] SE[employer] PLANT OPERATOR) Pathologist [facility] Trop T hs 11 <=14 ng/L Comment: Interpretive Data For further hscTnT resources including the diagnostic algorithm and an aid in interpretation, copy and paste this link: https://nrl.testcatalog.org/show/hsTrop Current Interpretive Data last revised 2020. Testing performed by: [facility], [address] [place] [address]., [address] Blood 10/10/2024 7:5 5 PM [employer] SE[employer] PLANT OPERATOR 10/10/2024 8:03 PM [employer] SE[employer] PLANT OPERATOR us Jean Claude Matta Jr., MD LAB BLOOD ORDERABLES Fi nal Result Performing Organization Address [facility] de Phone Number [facility] [address] [place] [address] * eGFR (10/10/2024 7:55 PM [employer] SE[employer]ANT OPERATOR) eGFR >90 >=60 mL/min/1. 73 m2 Comment: [...] was last reviewed 2021. Testing performed by: [address] [address] Blood 10/10/2024 7:55 PM [employer] SE[employer] PLANT OPERATOR 10/10/2024 8:03 PM [employer] SE[employer] PLANT OPERATOR us Jean Claude Matta Jr., MD LAB BLOOD ORDERABLES Fi nal Result Performing Organization Address [facility] Co de Phone Number [facility] [facility] [place] [address] * Differential, auto (10/10/2024 7:55 PM [employer]) Neutrophil abs 4.6 1.5 - 6.5 K/cumm Comment:Testing performed by : [address] [address] Imm gran abs 0.0 0.0 - 0.1 K/cumm [facility] Comment:Testing performed by : [address], [place]., [address] Lymphocyte abs 1.5 0.8 - 3.3 K/cumm [facility] Comment:Testing performed by : [address], [place]., [address] Monocyte abs 0.7 0.2 - 0.8 K/cumm [facility] Comment:Testing performed by : [address], [place]., [address] Eosinophil abs 0.3 0.0 - 0.5 K/cumm [facility] Comment:Testing performed by : [address] [address] Basophil abs 0.0 0.0 - 0.1 K/cumm [facility] Comment:Testing performed by : [address] [address] Neutrophil pct 64.8 % [facility] Comment: Interpretive Data Percent cell count reference ranges are not reported, since discordance with absolute values may lead to misinterpretation of CBC data. Current Interpretive Data was last revised on 2017. Testing performed by: [address] [address] Imm gran pct 0.4 % [facility] Comment: Interpretive Data Percent cell count reference ranges are not reported, since discordance with absolute values may lead to misinterpretation of CBC data. Current Interpretive Data was last revised on 2017. Testing performed by: [address] [address] Lymphocyte pct 20.8 % [facility] Comment: Interpretive Data Percent cell count reference ranges are not reported, since discordance with absolute values may lead to misinterpretation of CBC data. Current Interpretive Data was last revised on 2017. Testing performed by: [address] [address] Monocyte pct 9.4 % [facility] Comment: Interpretive Data Percent cell count reference ranges are not reported, since discordance with absolute values may lead to misinterpretation of CBC data. Current Interpretive Data was last revised on 2017. Testing performed by: [address] [address] Eosinophil pct 4.2 % [facility] Comment: Interpretive Data Percent cell count reference ranges are not reported, since discordance with absolute values may lead to misinterpretation of CBC data. Current Interpretive Data was last revised on 2017. Testing performed by: [address] [address] Basophil pct 0.4 % [facility] Comment: Interpretive Data Percent cell count reference ranges are not reported, since discordance with absolute values may lead to misinterpretation of CBC data. Current Interpretive Data was last revised on 2017. Testing performed by: [address] [address] Blood 10/10/2024 7:55 PM [employer] 10/10/2024 8:03 PM [employer] us Jean Claude Matta Jr., MD LAB BLOOD ORDERABLES Fi nal Result [facility] 02[address] [facility] Department [place] [address] * (ABNORMAL) CBC with auto differential (10/10/2024 7:55 PM [employer]) WBC 7.1 3.8 - 9.9 K/cumm Comment:Testing performed by : [address] [address] Hgb 10.9(L) 11.9 - 15.5 g/dL [facility] Comment:Testing performed by : [address] [address] Hct 37.0 35.6 - 45.5 % [facility] Comment:Testing performed by : [address] [address] Plt 355 150 - 400 K/cumm [facility] Comment:Testing performed by : [address] [address] MPV 10.5 9.1 - 12.3 fL [facility] Comment:Testing performed by : [address] [address] RBC 5.01 3.90 - 5.20 M/cumm [facility] Comment:Testing performed by : [address] [address] MCV 73.9(L) 81.3 - 96.4 fL [facility] Comment:Testing performed by : [address] [address] MCH 21.8(L) 27.1 - 33.3 pg [facility] Comment:Testing performed by : [address] [address] MCHC 29.5(L) 32.3 - 35.7 g/dL [facility] Comment:Testing performed by : [address] [address] RDW CV 17.1(H) 11.1 - 14.9 % [facility] Comment:Testing performed by : [address] [address] RDW SD 44.8 35.7 - 48.1 fL [facility] Comment:Testing performed by : [address] [address] NRBC abs 0.00 0.00 - 0.01 K/cumm [facility] Comment:Testing performed by : [address] [address] Blood Venous blood specimen / Unknown 10/10/2024 7:55 PM [employer] 10/10/2024 8:03 PM [employer]PER[employer] us Jean Claude Matta Jr., MD LAB BLOOD ORDERABLES Fi nal Result [facility] [facility] Department [place] [address] * (ABNORMAL) Comprehensive metabolic panel (10/10/2024 7:55 PM [employer]) Sodium 136 135 - 145 mmol/L Comment:Testing performed by : [address] [address] Potassium, pl 3.3 3.3 - 4.9 mmol/L [facility] Comment: Hemolyzed; Potassium value may be falsely elevated by as much as 1.0 mmol/L. Suggest redraw and reanalysis. Testing performed by: [address] [address] Chloride 99 97 - 110 mmol/L [facility] Comment:Testing performed by : [address], [place]., [address] CO2 23 22 - 32 mmol/L [facility] Comment:Testing performed by : [address] [address] Anion gap 14 2 - 15 mmol/L [facility] Comment:Testing performed by : [address], [place]., [address] BUN 4(L) 6 - 25 mg/dL [facility] Comment:Testing performed by : [address], [place]., [address] Creatinine 0.69 0.60 - 1.10 mg/dL [facility] Comment:Testing performed by : [address] [address] Glucose 118 70 - 199 mg/dL [facility] Comment: Interpretive [...] was last revised 2022. Testing performed by: [address] [address] Calcium 9.7 8.5 - 10.3 mg/dL [facility] Comment:Testing performed by : [address] [address] Bilirubin, total 0.4 0.1 - 1.2 mg/dL [facility] Comment:Testing performed by : [address] [address] Protein, pl 7.0 6.5 - 8.5 g/dL [facility] Comment:Testing performed by : [address] [address] Albumin 3.7 3.5 - 5.0 g/dL [facility] Comment:Testing performed by : [address] [address] Alk phos 124 40 - 130 Units/L [facility] Comment:Testing performed by : [address] [address] ALT 16 7 - 45 Units/L [facility] Comment:Testing performed by : [address] [address] AST 18 10 - 45 Units/L [facility] Comment: Hemolyzed; result may be falsely elevated Testing performed by: [address] [address] Blood 10/10/2024 7:55 PM [employer] 10/10/2024 8:03 PM [employer]PER[employer] Jean Claude Matta Jr., MD LAB BLOOD ORDERABLES Fi nal Result Performing Organization Address [facility]/ZIP Co de Phone Number [address] [place] [address] * POCT glucose (09/23/2024 10:55 AM [employer]) [facility] Glucose, POC 92 70 - 199 mg/dL Comment:Testing performed by : [address] [address] Glucose comment 1 Use This Result [facility] Comment:Testing performed by : [address] [address] Blood 09/23/2024 10:5 5 AM [employer] 09/23/2024 10:55 AM [employer] Sushant Ramirez DO LAB POCT ORDERABLES - DEVICE F inal Result Performing Organization Address City/[facility] Co de Phone Number [address] [place] [address] * POCT glucose (09/23/2024 9:09 AM [employer]) Glucose, POC 103 70 - 199 mg/dL Comment:Testing performed by : [address] [address] Glucose comment 1 Use This Result [facility] Comment:Testing performed by : [address] [address] Blood 09/23/2024 9:09 AM [employer] 09/23/2024 9:09 AM [employer] OPERATOR [employer] LAB POCT ORDERABLES - DEVICE F inal Result Performing Organization Address [facility] de Phone Number BARBARA[address] [place] [address] * POCT glucose (09/23/2024 8:39 AM [employer]) Glucose, POC 96 70 - 199 mg/dL Comment:Testing performed by : [address] [address] Glucose comment 1 Use This Result [facility] Comment:Testing performed by : [address] [address] Blood 09/23/2024 8:39 AM [employer] OPERATOR 09/23/2024 8:39 AM [employer] OPER[employer] LAB POCT ORDERABLES - DEVICE F inal Result Performing Organization Address City/[facility] Co de Phone Number [address] [place] [address] * POCT glucose (09/23/2024 7:57 AM [employer]) Glucose, POC 91 70 - 199 mg/dL Comment:Testing performed by : [address] [address] Glucose comment 1 Use This Result [facility] Comment:Testing performed by : [address] [address] Blood 09/23/2024 7:57 AM [employer] OPERATOR 09/23/2024 7:57 AM [employer] OPER[employer] LAB POCT ORDERABLES - DEVICE F inal Result Performing Organization Address [facility] de Phone Number [facility] [address] [place] [address] * (ABNORMAL) POCT glucose (09/23/2024 7:07 AM [employer]) Glucose, POC 49(C) 70 - 199 mg/dL Comment:Testing performed by : [address] [address] Glucose comment 1 Use This Result [facility] Comment:Testing performed by : [address] [address] Blood 09/23/2024 7:07 AM [employer]PERATOR 09/23/2024 7:07 AM [employer] OPERATOR [employer] LAB POCT ORDERABLES - DEVICE F inal Result Performing Organization Address [facility] de Phone Number ROSAL[facility] [address] [place] [address] * Urinalysis reflex to microscopic and culture Urine (09/23/2024 6:06 AM [employer]) Color, ur Straw Yellow Comment:Testing performed by : [address] [address] Clarity, ur Clear Clear [facility] Comment:Testing performed by : [address] [address] Specific gravity, ur 1.009 1.003 - 1.030 [facility] Comment:Testing performed by : [address] [address] pH, urine 6.5 [facility] Comment: Interpretive Data U rine pH is affected by diet, medications, systemic acid-base disturbances, and renal tubular function. pH may affect urinary stone formation. For example, urine pH below 6.0 may help reduce the tendency for calcium phosphate stones and pH greater than 6.0 may reduce the tendency for uric acid stone formation. Source: [facility] Current Interpretive Data was last revised on 2017 Testing performed by: [facility], [address] [place] [address], [place]., [address] Protein, ur ql Negative Negative [facility] Comment:Testing performed by : [address], [place]., [address] Glucose, ur ql Negative Negative [facility] Comment:Testing performed by : [address], [place]., [address] Ketones, ur Negative Negative [facility] Comment:Testing performed by : [address], [place]., [address] Bilirubin, ur Negative Negative [facility] Comment:Testing performed by : [address], [place]., [address] Blood, ur Negative Negative [facility] Comment:Testing performed by : [address], [place]., [address] Urobilinogen, ur <2.0 <2.0 mg/dL [facility] Comment:Testing performed by : [address], [place]., [address] Nitrite, ur Negative Negative [facility] Comment:Testing performed by : [address], [place]., [address] Leukocyte esterase, ur Negative Negative [facility] Comment:Testing performed by : [address], [place]., [address] UA reflex comment Reflex conditions for microscopic UA and culture not met. [facility] Comment:Testing performed by : [address], [place]., [address] Urine 09/23/2024 6:06 AM [employer] OPERATOR 09/23/2024 6:09 AM [employer] OPERATOR us Jean Claude Matta Jr., MD LAB MICROBIOLOGY - GENE RAL ORDERABLES Final Result [facility] [address] [facility] Department [place] [address] * eGFR (09/23/2024 5:06 AM [employer]PER[employer]) eGFR 81 >=60 mL/min/1. 73 m2 Comment: [...] was last reviewed 2021. Testing performed by: [address] [address] Blood 09/23/2024 5:06 AM [employer] OPERATOR 09/23/2024 5:10 AM [employer] OPERATOR us Jean Claude Matta Jr., MD LAB BLOOD ORDERABLES Fi nal Result [facility] 265[address] [facility] Department [place] [address] * (ABNORMAL) Differential, auto (09/23/2024 5:06 AM [employer] OPER[employer]) Pathologist [facility] Neutrophil abs 6.8(H) 1.5 - 6.5 K/cumm Comment:Testing performed by : [address] [address] Imm gran abs 0.1 0.0 - 0.1 K/cumm [facility] Comment:Testing performed by : [address] [address] Lymphocyte abs 0.8 0.8 - 3.3 K/cumm [facility] Comment:Testing performed by : [address] [address] Monocyte abs 0.6 0.2 - 0.8 K/cumm [facility] Comment:Testing performed by : [address] [address] Eosinophil abs 0.0 0.0 - 0.5 K/cumm [facility] Comment:Testing performed by : [address] [address] Basophil abs 0.0 0.0 - 0.1 K/cumm [facility] Comment:Testing performed by : [address] [address] Neutrophil pct 81.8 % [facility] Comment: Interpretive Data Percent cell count reference ranges are not reported, since discordance with absolute values may lead to misinterpretation of CBC data. Current Interpretive Data was last revised on 2017. Testing performed by: [address] [address] Imm gran pct 0.7 % [facility] Comment: Interpretive Data Percent cell count reference ranges are not reported, since discordance with absolute values may lead to misinterpretation of CBC data. Current Interpretive Data was last revised on 2017. Testing performed by: [address] [address] Lymphocyte pct 9.3 % [facility] Comment: Interpretive Data Percent cell count reference ranges are not reported, since discordance with absolute values may lead to misinterpretation of CBC data. Current Interpretive Data was last revised on 2017. Testing performed by: [address] [address] Monocyte pct 7.7 % [facility] Comment: Interpretive Data Percent cell count reference ranges are not reported, since discordance with absolute values may lead to misinterpretation of CBC data. Current Interpretive Data was last revised on 2017. Testing performed by: [address] [address] Eosinophil pct 0.5 % [facility] Comment: Interpretive Data Percent cell count reference ranges are not reported, since discordance with absolute values may lead to misinterpretation of CBC data. Current Interpretive Data was last revised on 2017. Testing performed by: [address] [address] Basophil pct 0.0 % [facility] Comment: Interpretive Data Percent cell count reference ranges are not reported, since discordance with absolute values may lead to misinterpretation of CBC data. Current Interpretive Data was last revised on 2017. Testing performed by: [address] [address] Blood 09/23/2024 5:06 AM [employer] OPERATOR 09/23/2024 5:10 AM [employer] OPERATOR us Jean Claude Matta Jr., MD LAB BLOOD ORDERABLES Fi nal Result [facility] [address] [facility] Department of Laboratories [place], [place] [id number] * (ABNORMAL) CBC with auto differential (09/23/2024 5:06 AM [employer] OPERATOR) WBC 8.3 3.8 - 9.9 K/cumm Comment:Testing performed by : [address] [address] Hgb 12.5 11.9 - 15.5 g/dL [facility] Comment:Testing performed by : [address] [address] Hct 41.7 35.6 - 45.5 % [facility] Comment:Testing performed by : [address] [address] Plt 207 150 - 400 K/cumm [facility] Comment:Testing performed by : [address] [address] MPV 11.7 9.1 - 12.3 fL [facility] Comment:Testing performed by : [address] [address] RBC 5.66(H) 3.90 - 5.20 M/cumm [facility] Comment:Testing performed by : [address] [address] MCV 73.7(L) 81.3 - 96.4 fL [facility] Comment:Testing performed by : [address] [address] MCH 22.1(L) 27.1 - 33.3 pg [facility] Comment:Testing performed by : [address] [address] MCHC 30.0(L) 32.3 - 35.7 g/dL [facility] Comment:Testing performed by : [address] [address] RDW CV 18.3(H) 11.1 - 14.9 % [facility] Comment:Testing performed by : [address] [address] RDW SD 45.1 35.7 - 48.1 fL [facility] Comment:Testing performed by : [address] [address] NRBC abs 0.00 0.00 - 0.01 K/cumm [facility] Comment:Testing performed by : [address] [address] Blood 09/23/2024 5:06 AM [employer] OPERATOR 09/23/2024 5:10 AM [employer] OPERATOR us Jean Claude Matta Jr., MD LAB BLOOD ORDERABLES Fi nal Result [facility] [address] [facility] Department [place] [address] * (ABNORMAL) Comprehensive metabolic panel (09/23/2024 5:06 AM [employer] OPERATOR) Sodium 139 135 - 145 mmol/L Comment:Testing performed by : [address] [address] Potassium, pl 3.4 3.3 - 4.9 mmol/L [facility] Comment:Testing performed by : [address] [address] Chloride 103 97 - 110 mmol/L [facility] Comment:Testing performed by : [address] [address] CO2 24 22 - 32 mmol/L [facility]OT Comment:Testing performed by : [address] [address] Anion gap 12 2 - 15 mmol/L [facility] Comment:Testing performed by : [address] [address] BUN 26(H) 6 - 25 mg/dL [facility] Comment:Testing performed by : [address] [address] Creatinine 0.80 0.60 - 1.10 mg/dL [facility] Comment:Testing performed by : [address] [address] Glucose 77 70 - 199 mg/dL [facility] [...] was last revised 2022. Testing performed by: [address] [address] Calcium 9.5 8.5 - 10.3 mg/dL [facility] Comment:Testing performed by : [address] [address] Bilirubin, total 0.5 0.1 - 1.2 mg/dL [facility] Comment:Testing performed by : [address] [address] Protein, pl 7.0 6.5 - 8.5 g/dL [facility] Comment:Testing performed by : [address] [address] Albumin 3.7 3.5 - 5.0 g/dL [facility] Comment:Testing performed by : [address] [address] Alk phos 82 40 - 130 Units/L [facility] Comment:Testing performed by : [address] [address] ALT 11 7 - 45 Units/L [facility] Comment:Testing performed by : [address] [address] AST 11 10 - 45 Units/L [facility] Comment:Testing performed by : [address] [address] Blood 09/23/2024 5:06 AM [employer] OPERATOR 09/23/2024 5:10 AM [employer] OPERATOR Jean Claude Matta Jr., MD LAB BLOOD ORDERABLES Fi nal Result Performing Organization Address [facility] de Phone Number [facility] [address] [place] [address] [place] [address] * POCT glucose (09/23/2024 5:04 AM [employer] OPERATOR) [facility] Glucose, POC 71 70 - 199 mg/dL Comment:Testing performed by : [address] [address] Glucose comment 1 Use This Result [facility] Comment:Testing performed by : [address] [address] Glucose comment 2 RN/MD Notified [facility] Comment:Testing performed by : [address] [address] Blood 09/23/2024 5:04 AM [employer] OPERATOR 09/23/2024 5:04 AM [employer] OPERATOR Notinfile Unknown LAB POCT ORDERABLES - DEVICE F inal Result Performing Organization Address [facility] de Phone Number [facility] [address] [facility] [place] [address] * Diagnostic Mammogram Bilateral W Sukumar (04/09/2024 [...] Gen Anderson M.D. RL: REBECCA Report ID: [id number] Reading Location: [facility] us Haleigh Young MD IMG MAMMO PROCEDURE S Final Result * COLONOSCOPY (10/28/2023 3:01 PM [employer] OPERATOR) Anatomical Region Laterality Modality Other Narrative Procedure Note Jammie Burdick MD - 10/28/2023 3:01 PM CST [facility] ENDOSCOPY Patient Name: Dipti Lnua Procedure Date: 10/28/2023 3:01 PM Date of : 1960 Admit Type: Outpatient Age: 63 Gender: Female Attending MD: Jammie Burdick M.D. Room: [facility] ENDOSCOPY ROOM 06 Note Status: Finalized [...] The scope was passed under direct vision.The [id number]-[id number] colonoscope was introduced through theanus and advanced [...] On: 10/28/2023 3:01 PM Recognized by the [employer] for promoting quality in endoscopy Jammie Burdick MD ENDOSCOPY PROCEDURES Tash l Result * Hepatitis C antibody Blood (08/09/2023 1:28 PM [employer] OPERATOR) Hep C Ab Nonreactive Nonreactive [facility] Comment: Interpretive Data Nonreactive: Antibodies to [...] revised on 2019. Blood 08/09/2023 1:28 PM [employer] OPERATOR 08/09/2023 6:31 PM [employer] OPERATOR Jammie Burdick MD LAB MICROBIOLOGY - GENERA L ORDERABLES Final Result [facility] [address] [facility] Department [place] [address] * DEXA Axial Skeleton Bone Density Multi Site (02/22/2023 10:45 AM CDT) Anatomical Region Laterality Modality Body N/A Mammography 02/22/2023 3:45 PM CDT Narrative 02/22/2023 3:45 PM CDT EXAM DESCRIPTION: DEXA AXIAL SKELETON BONE DENSITY 1 OR MORE SITES REASON FOR STUDY: 62 y/o year old F with given history of screening. Bdc Manager/Model: [employer] A (S/N [id number]) CLINICAL INFORMATION: Current height: 64 inches Maximum [...] Elodia Recinos M.D. TW: TW Report ID: [id number] Reading Location: [place] [address] Procedure Note Elodia Recinos MD - 02/22/2023 EXAM DESCRIPTION: DEXA AXIAL SKELETON BONE DENSITY 1 OR MORE SITES REASON FOR STUDY: 62 y/o year old F with given history of screening. Bdc Manager/Model: [employer] A ([id number]/N [id number]) CLINICAL INFORMATION: Current height: 64 inches Maximum [...] Elodia Recinos M.D. TW: TW Report ID: [id number] Reading Location: [place] [address] Brenda Stewart NP [facility] DXA PROCEDURES Final Result * Pap and High Risk HPV, reflex to Genotyping (12/22/2022 7:56 AM CDT) Thin prep (Pap test) 12/22/2022 7:56 AM CDT 12/23/2022 7:56 AM CDT Narrative PATHOLOGY [facility] - 12/28/2022 11:38 AM CDT [facility] Department of Pathology [address] [place] [id number] Final Report with Addendum Note to [...] the details. Patient Name: DIPTI LUNA Address: [address] [place] [address], [address] [place] [address] Gender: F : 1960 (Age: 62) Service: Location: [facility] : [id number] [facility] #: [id number] Patient Type: [facility] SPECIMEN Taken: 12/22/2022 Received: 12/23/2022 Accessioned:: 12/24/2022 Reported: 12/28/2022 Physician(s): Nia Alfred M.D. [facility] Diagnosis: SOURCE OF SPECIMEN SCREENING THIN [...] determined by the Surgical Pathology Department at [facility] as part of an ongoing clinical [...] determined by the Surgical Pathology Department [facility]. It has not been cleared or approved by the [place]. [place]. Food and Drug Administration. Nia Alfred MD LAB CYTOLOGY ORDERABLES F inal Result PATHOLOGY [facility] from Last 3 Months or Most Recently Relevant to Health Maintenance Insurance [facility] ADVANTRA Advance Directives For more information, please contact: [phone] Documents on File Type Date Recorded Patient Aircraft Captain Expl anation ADVANCE DIRECTIVE 02/01/2024 1:59 PM POLST - Phys Order for PT Preferences ADVANCE DIRECTIVE 01/30/2024 1:03 PM Power of Commercial Leasing Agent-Medical ADVANCE DIRECTIVE 06/02/2022 12:57 PM Jami r of [employer] Agent-Medical ADVANCE DIRECTIVE 06/02/2022 12:56 PM Yoon ng [...] 4:56 PM 05/31/2022 2:29 PM Care Teams Extra Gang Supervisor Relationship Specialty Start Date End Date Haleigh Young MD [address] [address] PCP - General Family Medicine 11/24/21 Luis Saunders MD Referring Physician Gastroenterology 07/31/18 Jammie Burdick MD Referring Physician Gastroenterology 07/31/18 Ervin Garcia MD 46[address] [facility] [address] [address] Consulting Physician Pulmonary Disease 07/08/20 Jean Carlos Berrios MD 2015 [facility] [address] Referring Physician Obstetrics and Gynecology 02/23/22 Rosa Herr RN [address] [place] [address] [facility] [address] [place] [address] Production Mechanic Tin Cans 06/03/22 Braden Sherwood DO [address] [facility] [address] [place] [address] Referring Physician Psychiatry 06/04/22 Ladonna Martinez, COLLIN [address] [facility] [address] [place] [address] Nurse Practitioner Nurse Practitioner 10/31/23 Kamila Witt NP [address] [place] [place] [address] Nurse Practitioner Hospice and Palliative Medicine 03/01/24
--- OUTSIDE RECORDS SUMMARY | 2024-11-26 11:01 | XMS_ITS | Encounter Summary ---
Author Organization [facility] Healthcare Address [address] [place] [address] Care Team Providers Care Renovator Machine Operator Name Role Phone Luis Saunders MD Unavailable [phone] Jammie Burdick MD Unavailable [phone] Ervin Garcia MD Unavailable [phone] Haleigh Young MD Primary Care Provi naye Jean Carlos Berrios MD Unavailable [phone] Rosa Herr RN Unavailable [phone] Braden Sherwood DO Unavailable [phone] Ladonna Martinez TRAINING AND DEVELOPMENT PROFESSIONAL Unavailable [phone] Kamila Witt NP Unavailable [phone] Encounter Details Date Type Department Care Team (Late st Contact Info) Description 10/29/2024 Telephone [facility] Family Medicine [address] [address] Haleigh Young MD [address] [address] Social History Tobacco Use Types [...] materials from doctor or pharmacy Sometimes 09/22/2023 [facility] Utilities Answer Date Recorded In the past 12 months has th e [employer], gas, oil, or water [employer] threatened to shut off services in your [...] often do you attend chur ch or sabianism services? Never 10/18/2024 Do you belong to [...] any time in the past 12 m [facility], were you homeless or living in a [...] on file Legal Sex Female 1:41 PM TRAINING PERSONNEL SUPERVISOR Gender Identity Not on file Sexual Orientation Not on file Occupation Industry Job Start Date Job End Date DISABILITY Not on file Not on file Not on file documented as of this encounter Functional Status * Audit-C Score Answer Date of Assessment Author 0 10/29/2024 1:23 PM TRAINING PERSONNEL SUPERVISOR Tami Mota MA * Question Answer Date of Assessment Author Q1: How often do you have a drink containing alcohol? Never 10/29/2024 1:23 PM TRAINING PERSONNEL SUPERVISOR Tami Mota MA Q2: How many drinks containing alcohol do you have on a typical day when you are drinking? Patient does not drink 10/29/2024 1:23 PM TRAINING PERSONNEL SUPERVISOR Tami Mota MA Q3: How often do you have six or more drinks on one occasion? Never 10/29/2024 1:23 PM TRAINING PERSONNEL SUPERVISOR Tami Mota MA documented as of this encounter Miscellaneous Notes * Telephone Encounter - Neda Cisneros LPN - 10/29/2024 11:52 AM CST Referral placed and supporting documentation sent NING PERSONNEL SUPERVISOR * Telephone Encounter - Nicolas German LCSW - 10/29/2024 10:29 AM TRAINING PERSONNEL SUPERVISOR Good morning. I spoke with patient and she confirmed plan to attend scheduled appointment today. She has if a new referral may be placed to palliative care provider due to chronic health conditions/symptoms management with discontinuous of habit forming medications. Her son will be moving to [place], where her daughter is also located. She will not have local familial support. Please assess/assist. Kindest regards, Nicolas German LCSW [facility] Medical Group Accountable Care Organization [phone] [email or web address] NING PERSONNEL SUPERVISOR documented in this encounter Plan of Treatment Not on file documented as of this encounter Goals Goal Patient Goal Type Associated Problems Recent Progress Patient-Stated? Author RIMA General Goal - Patient is knowledgeable about condition when worsening and how to respond ACO Care Management On track(2023 1:13 PM TRAINING PERSONNEL SUPERVISOR) Rosa Gu RN Note: Problem: Knowledge deficit [...] ACO Care Management On track(2024 10:21 AM TRAINING PERSONNEL SUPERVISOR) No Bev Du LCSW Note: Problem: Need [...] on filedocumented in this encounter Care Teams Renovator Machine Operator Relationship Specialty Start Date End Date Haleigh Young MD [address] [place] [address] PCP - General Family Medicine 11/24/21 Luis Saunders MD Referring Physician Gastroenterology 07/31/18 Jammie Burdick MD Referring Physician Gastroenterology 07/31/18 Ervin Garcia MD [facility] [place] [address] Consulting Physician Pulmonary Disease 07/08/20 Jean Carlos Berrios MD [address] [place] [address] Referring Physician Obstetrics and Gynecology 02/23/22 Rosa Herr, RN [address] [place] [address] [address] [place] [address] Optical Mechanic 06/03/22 Braden Sherwood DO [address] [facility] [address] [place] [address] Referring Physician Psychiatry 06/04/22 Ladonna Martinez NP [address] [facility] [address] [place] [address] Nurse Practitioner Nurse Practitioner 10/31/23 Kamila Witt NP 1 [facility] [place] [address] Nurse Practitioner Hospice and Palliative Medicine 03/01/24 documented as of this encounter
--- OUTSIDE RECORDS SUMMARY | 2024-11-26 11:01 | XMS_ITS | Encounter Summary ---
Author Organization [facility] Healthcare Address [address] [place] [address] Care Team Providers Care Structural Steel Worker Name Role Phone Luis Saunders MD Unavailable [phone] Jammie Burdick MD Unavailable [phone] Ervin Garcia MD Unavailable [phone] Haleigh Young MD Primary Care Provi naye Jean Carlos Berrios MD Unavailable [phone] Rosa Herr RN Unavailable [phone] Braden Sherwood DO Unavailable [phone] Ladonna Martinez BALLISTICS TEACHER Unavailable [phone] Kamila Witt NP Unavailable [phone] Reason for Visit * Reason Onset Date Comments Medical Question/Miscellaneous 11/09/2024 Encounter Details Date Type Department Care Team (Late st Contact Info) Description 11/09/2024 Telephone [facility] Family Medicine [address] [phone] Haleigh Young MD [address] [place] [address] Medical Question/Miscellaneous Social History Tobacco Use [...] materials from doctor or pharmacy Sometimes 09/22/[address] [facility] Utilities Answer Date Recorded In the [...] often do you attend chur ch or sabianist services? Never 10/18/2024 Do you belong to any clubs o r organizations such as taoist groups, unions, fraternal or athletic groups, or [...] place to sleep or slept in a intermediate (including now)? No 10/17/2023 Housing Stability Vital Sign Answer Lucas e Recorded In the last 12 months, was t here a time when you were not able to pay the mortgage or rent on time? No 10/18/2024 In the past 12 months, how m any times have you moved where you were living? 1 10/18/2024 At any time in the past 12 m [facility], were you homeless or living in a intermediate (including now)? No 10/18/2024 Personal Safety Answer Date Recorded Have you ever been in or are you currently in a harmful physical or emotional relationship or is someone making you feel afraid or unsafe? Denies 10/10/2024 Comments No Sex and Gender Information Value Date Recorded Sex Assigned at Not on file Legal Sex Female 1:41 PM WEATHER TEACHER Gender Identity Not on file Sexual Orientation Not on file Occupation Industry Job Start Date Job End Date DISABILITY Not on file Not on file Not on file documented as of this encounter Miscellaneous Notes * Telephone Encounter - Neda Cisneros LPN - 11/09/2024 2:33 PM CST Ardent refused patient, [facility] will not see patient for palliative care. Any other palliative care suggestions? HER TEACHER * Telephone Encounter - Elvia Sterling. - 11/09/2024 1:19 PM CST Medical Question/Miscellaneous Caller???s Concern: Kathe with Paliative Care states they have to Decline the Referral the Office sent to them. Does message need to be routed? Yes-Action Needed HER TEACHER documented in this encounter Plan of Treatment Not on file documented as of this encounter Goals Goal Patient Goal Type Associated Problems Recent Progress Patient-Stated? Author RIMA General Goal - Patient is knowledgeable about condition when worsening and how to respond ACO Care Management On track(2023 1:13 PM WEATHER TEACHER) No Rosa Herr, RN Note: Problem: Knowledge [...] ACO Care Management On track(2024 10:21 AM WEATHER TEACHER) No Bev Du LCSW Note: Problem: Need [...] on filedocumented in this encounter Care Teams Structural Steel Worker Relationship Specialty Start Date End Date Haleigh Young MD [address] [place] [address] PCP - General Family Medicine 11/24/21 Luis Saunders MD Referring Physician Gastroenterology 07/31/18 Jammie Burdick MD Referring Physician Gastroenterology 07/31/18 Ervin Garcia MD 4600 [facility] [address] [place] [address] Consulting Physician Pulmonary Disease 07/08/20 Jean Carlos Berrios MD 2015 [facility] [place] [address] Referring Physician Obstetrics and Gynecology 02/23/22 Rosa Herr RN [address] [place] [address] [address] [place] [address] Tipping Machine Operator 06/03/22 Braden Sherwood DO [address] [facility] [address] [place], [place] [id number] Referring Physician Psychiatry 06/04/22 Ladonna Martinez NP [address] [facility] [address] [place] [address] Nurse Practitioner Nurse Practitioner 10/31/23 Kamila Witt NP [address] [facility] [place] [address] Nurse Practitioner Hospice and Palliative Medicine 03/01/24 documented as of this encounter
--- OUTSIDE RECORDS SUMMARY | 2024-11-26 11:01 | XMS_ITS | Encounter Summary ---
Author Organization [facility] Healthcare Address [address] [place] [address] Care Team Providers Care Floor Scraper Name Role Phone Luis Saunders MD Unavailable [phone] Jammie Burdick MD Unavailable [phone] Ervin Garcia MD Unavailable [phone] Haleigh Young MD Primary Care Provi naye Jean Carlos Berrios MD Unavailable [phone] Rosa Herr RN Unavailable Braden Sherwood DO Unavailable [phone] Ladonna Martinez PSYCHOSOCIAL REHABILITATION COUNSELOR Unavailable Kamila Witt NP Unavailable Sally Castañeda MA Unavailable [phone] Encounter Details Date Type Department Care Team (Late st Contact Info) Description 02/07/2024 Telephone [facility] Family Medicine [address] [address] Haleigh Young MD [address] [place] [address] Social History Tobacco Use Types Packs/Day [...] materials from doctor or pharmacy Sometimes 09/22/2023 [facility] Utilities Answer Date Recorded In the past 12 months has th e [employer], gas, oil, or water [employer] threatened to shut off services in your [...] often do you attend chur ch or episcopal services? Never 01/30/2024 Do you belong to any clubs o r organizations such as nondenominational groups, unions, fraternal or athletic groups, or [...] living in a intermediate (including now)? No 01/30/2024 Personal Safety Answer Date Recorded Have you ever been in or are you currently in a harmful physical or emotional relationship or is someone making you feel afraid or unsafe? Denies 01/28/2024 Comments No Sex and Gender Information Value Date Recorded Sex Assigned at Not on file Legal Sex Female 1:41 PM NEUROLOGY PROFESSOR Gender Identity Not on file Sexual Orientation [...] ACO Care Management On track(2023 1:13 PM NEUROLOGY PROFESSOR) No Rosa Herr, RN Note: Problem: Knowledge [...] ACO Care Management On track(2024 10:21 AM NEUROLOGY PROFESSOR) No Bev Du LCSW Note: Problem: Need [...] Time MRSA 01/30/2024 01/30/2024 07/28/2024 3:05 AM NEUROLOGY PROFESSOR documented as of this encounter Care Teams Floor Scraper Relationship Specialty Start Date End Date Haleigh Young MD [address] [place] [address] PCP - General Family Medicine 11/24/21 Luis Saunders MD Referring Physician Gastroenterology 07/31/18 Jammie Burdick MD Referring Physician Gastroenterology 07/31/18 Ervin Garcia MD [address] [facility] [address] [place] [address] Consulting Physician Pulmonary Disease 07/08/20 Jean Carlos Berrios MD [address] [place] [address] Referring Physician Obstetrics and Gynecology 02/23/22 Rosa Herr RN [address] [place] [address] [address] [place] [address] Railroad Carman 06/03/22 Braden Sherwood DO [address] [facility] [address] [place] [address] Referring Physician Psychiatry 06/04/22 Ladonna Martinez, COLLIN [address] [facility] [address] [place] [address] Nurse Practitioner Nurse Practitioner 10/31/23 Kamila Witt NP 1 [facility] [place] [address] Nurse Practitioner Hospice and Palliative Medicine 03/01/24 Sally Castañeda, TYRESE [address] [place] [address] [address] [place] [address] ACO Care Gas Plant Technician 10/15/24 10/15/24 documented as of this encounter
--- OUTSIDE RECORDS SUMMARY | 2024-11-26 11:01 | XMS_ITS | Clinical Summary ---
Author Organization [facility] [employer] Address [address] [facility] [place] [address] Care Team Providers Care Field Director Name Role Phone Maya Mcclain MD Primary Care Provider [phone] Source Comments [facility] [employer],non-owned Affiliates and Associated Physician Practices is amultiple site organization consisting of ambulatory clinics and hospital sitesin [place], [place], [place] and [place]. This disclosure is being madepursuant to the Care Everywhere program and may not contain all information available regarding this patient. Last updated 18.[employer] Allergies Active Allergy Reactions Criticality Noted Date [...] age to complete this topic Care Teams Field Director Relationship Specialty Start Date End Date Maya Mcclain MD [address] [place] [phone] PCP - General 10/31/20
--- OUTSIDE RECORDS SUMMARY | 2024-11-26 11:01 | XMS_ITS ---
Author Organization [facility] Address [address] [place] [address] Care Team Providers Care Mutual Fund Accountant Name Role Phone Diane Burgess Primary Care Provider REASON FOR VISIT Alprazolam Medications Medication SIG (Take, Route, Fr equency, Duration) Notes Start Date End Date Status ALPRAZolam 1 MG 1 tablet Orally four times a day for 7 days 11/09/2024 Active ALPRAZolam 1 MG 1 tablet Orally four times a day for 30 days 11/13/2024 Active Encounters Encounter Location Date Provider Diagnosis [address] [place] [address] 11/09/2024 Diane Burgess RUSS (generalized anxiety disorder) [...] Notes * Dipti BRIDGESDOB:1960 (64 yo F)Acc No.[id number]:11/09/2024 Patient: Dipti GLEZ :1960 A ge:64 Y S ex:Female Address:[address] [place] [address], [place], [address] * Refills Refill ALPRAZolam Tablet, 1 MG, Orally, 28 Tablet, 1 tablet, four times a day, 7 days, Refills=0 Start ALPRAZolam Tablet, 1 MG, Orally, 120 Tablet, 1 tablet, four times a day, 30 days, Refills=0 * true * Date: Generated for Betzaida alicea/John/Heydiitting on: 0 11/26/2024 11:01 AM CDT
--- OUTSIDE RECORDS SUMMARY | 2024-11-26 11:01 | XMS_ITS | Encounter Summary ---
Author Organization [facility] Address [address] [facility] [place] [address] Care Team Providers Care Quality Assurance Supervisor Trim Name Role Phone Maya Mcclain MD Primary Care Provider [phone] Encounter Details Date Type Department Care Team (Late st Contact Info) Description 10/14/2023 Lab Requisition [facility] - DermPath Lab [address] [facility] [place] [address] Ketan Sheppard MD [facility] DER[facility] [address] [place] [phone] Dermatitis, unspecified Social History Tobacco Use [...] Diagnosis Comments DERMATOPATHOLOGY Routine 10/14/2023 3:33 AM RN DELIVERY Dermatitis, unspecified documented in this encounter Results * DERMATOPATHOLOGY (10/14/2023 3:33 AM RN DELIVERY) Case Report Dermatopathology Report Case: [id number] Authorizing Provider: Ketan Sheppard MD Collected: 10/14/2023 03:33 AM Ordering Location: [facility] DermPath Lab Received: 10/17/2023 02:24 PM Pathologist: Ruby Licona MD Specimen: Skin, left buttock 4:27 PM [facility] DERMATOPATHOLOGY [facility]OR[facility] Final Diagnosis Specimen A. SKIN, left buttock: EPIDERMAL NECROSIS SUGGESTIVE OF EXCORIATION (L98.499) (see microscopic description) 4 4:27 PM [facility] DERMATOPATHOLOGY [facility]OR[facility] Clinical History Atopic dermatitis vs contact dermatitis other vs scabies 4:27 PM [facility] DERMATOPATHOLOGY [facility] Gross Description Specimen A: Received is one formalin filled container labeled with the patient's name and designated left buttock. The specimen consists of a punch biopsy measuring 4x4x4 mm, bisected. Jar 0. 4:27 PM [facility] DERMATOPATHOLOGY [facility] Microscopic Description Specimen A. SKIN, left buttock: The epidermis is focally necrotic and covered with a scale-crust. There is fibrin at the base. Additional deeper sections were obtained and reviewed. Grocott's methenamine silver (GMS) stain is negative for fungal elements in the sections examined. 4:27 PM [facility] DERMATOPATHOLOGY [facility]OR[facility] Disclaimer An external and internal positive and negative controls are appropriate for the histochemical, immunohistochemical and immunofluorescence stain(s) in this case (if any), except where stated explicitly. The performance characteristics of the stain(s) cited in this report were developed and its performance characteristic determined by the Dermatopathology Laboratory at [facility], directed by Dr. Jaylan Cunningham. These tests need not be, and therefore are not, approved by the [place] Food and Drug Administration. The tests are used for clinical purposes. Billing Codes Specimen Charges Stain Charges 74531 1 96423 1 4 4:27 PM [facility] DERMATOPATH[facility]Y [facility] Embedded Images 4 4:27 PM [facility] DERMATOPATH[facility]Y [facility] Pathology/Cytolo gy TISSUE SPECIMEN FROM SKIN / Unknown 10/14/2023 3:33 AM RN DELIVERY 10/17/2023 2:24 PM RN DELIVERY Ketan Sheppard MD LAB - PATHOLOGY/CYTO LOGY ORDER[facility]LES DERMATOPATHOLOGY LABORATORY [facility] - Department of Dermatology [address], [address] [phone] documented in this encounter Visit Diagnoses Diagnosis Dermatitis, unspecified documented in this encounter Care Teams Quality Assurance Supervisor Trim Relationship Specialty Start Date End Date Maya Mcclain MD [address] [place] [phone] PCP - General 10/31/20 documented as of this encounter
--- OUTSIDE RECORDS SUMMARY | 2024-11-26 11:01 | XMS_ITS | Encounter Summary ---
Author Organization [facility] Address [address] [place] [address] Care Team Providers Care Fiberglass Container Winding Operator Name Role Phone Luis Saunders MD Unavailable [phone] Jammie Burdick MD Unavailable [phone] Ervin Garcia MD Unavailable [phone] Haleigh Young MD Primary Care Provi naye Jean Carlos Berrios MD Unavailable [phone] Rosa Herr RN Unavailable [phone] Braden Sherwood DO Unavailable [phone] Ladonna Martinez PRODUCE FIELD MERCHANDISER Unavailable [phone] Kamila Witt PRODUCE FIELD MERCHANDISER Unavailable [phone] Reason for Visit * Reason Onset Date Comments Shortness of Breath 11/26/2024 Encounter Details Date Type Department Care Team (Late st Contact Info) Description 11/26/2024 Nurse Triage [facility] Family Medicine [address] [phone] Haleigh Young MD [address] [place] [id number] Social History Tobacco Use Types Packs/Day [...] materials from doctor or pharmacy Sometimes 09/22/2023 [facility] Utilities Answer Date Recorded In the past 12 months has e [employer], gas, oil, or water [employer] threatened to shut off services in your [...] often do you attend chur ch or uatsdin services? Never 10/18/2024 Do you belong to any clubs o r organizations such as mu-ism groups, unions, fraternal or athletic groups, or [...] place to sleep or slept in a usp (including now)? No 10/17/2023 Housing Stability Vital Sign Answer Lucas e Recorded In the last 12 months, was t here a time when you were not able to pay the mortgage or rent on time? No 10/18/2024 In the past 12 months, how m any times have you moved where you were living? 1 10/18/2024 At any time in the past 12 m [facility], were you homeless or living in a usp (including now)? No 10/18/2024 Personal Safety Answer Date Recorded Have you ever been in or are you currently in a harmful physical or emotional relationship or is someone making you feel afraid or unsafe? Denies 10/10/2024 Comments No Sex and Gender Information Value Date Recorded Sex Assigned at Not on file Legal Sex Female 1:41 PM NON DESTRUCTIVE TESTING ENGINEER Gender Identity Not on file Sexual Orientation Not on file Occupation Industry Job Start Date Job End Date DISABILITY Not on file Not on file Not on file documented as of this encounter Miscellaneous Notes * Telephone Encounter - Latasha Vyas RN - 11/26/2024 8:43 AM CDT Tearful and upset on phone. Chronic breathing issues for years and sees air gun operator. She reports last direction from air gun operator-was ED or PCP. Pt called on 11/23/24 for SOB with pulse ox in 80%s-pt was redirected to ED by PCP office as well. Pt went to [facility] on 11/23/24 and reports she waited for 5 hours without being seen and left. She has been home in same condition-On 3L(pt upped on her own from 2L), coughing, congestion and increased SOB at rest, pulse ox ranges all over in the 80srange with oxygen, generalized fatigue. Pt is terribly upset and reports she can no longer handle the EDs and wants tot discuss hospice (she sees no other way-has no family and no assistance)(air gun operator when discussing hospice directs her to PCP)Provider contacted via secure chat for ED disposition consult. Recommendation from provider:Other: Alvaro PA- ED is her best option now to get stabilized and once stabilized an office visit would be appropriate w/ PCP. With much discussion pt agreed to [facility]. Reason for Disposition Oxygen level (e.g., pulse oximetry) 90% or lower Protocols used: Breathing [id number] * Telephone Encounter - Latasha Vyas RN - 11/26/2024 8:29 AM CDT Regarding: SOB, Generalized Weakness & Low Oxygen ----- Message from Arlen Dumont sent at 11/26/2024 8:25 AM CDT ----- Symptom Based Call Chief Complaint(s): SOB, Generalized Weakness & Low Oxygen Duration: 3 weeks What type of symptom(s) is the patient experiencing? Red Flag. Is the patient concerned they are experiencing a medical emergency requiring an ambulance? No Additional Comments: Patient calling symptomatic with SOB and low oxygen in the 70's when walking, pt spoke with press writer on 11/23/2024 and was advised to be seen in the ED. Pt states she went to [facility] on Tuesday and waited 5 hours and still hadn't been seen, pt ended up leaving without treatment. Pt would like to discuss Hospice care, CS will route over as HP due to red flag symptoms and ptis aware of the turnaround timeframe. Does message need to be routed? Yes-Action Needed documented in this encounter Plan of Treatment Not on file documented as of this encounter Goals Goal Patient Goal Type Associated Problems Recent Progress Patient-Stated? Author RIMA General Goal - Patient is knowledgeable about condition when worsening and how to respond ACO Care Management On track(2023 1:13 PM NON DESTRUCTIVE TESTING ENGINEER) No Rosa Herr, RN Note: Problem: Knowledge [...] ACO Care Management On track(2024 10:21 AM NON DESTRUCTIVE TESTING ENGINEER) No Bev Du LCSW Note: Problem: Need [...] on filedocumented in this encounter Care Teams Fiberglass Container Winding Operator Relationship Specialty Start Date End Date Haleigh Young MD [address] [place] [id number] PCP - General Family Medicine 11/24/21 Luis Saunders MD Referring Physician Gastroenterology 07/31/18 Jammie Burdick MD Referring Physician Gastroenterology 07/31/18 Ervin Garcia MD [address] [facility] [address] [place] [address] Consulting Physician Pulmonary Disease 07/08/20 Jean Carlos Berrios MD [address] [address] Referring Physician Obstetrics and Gynecology 02/23/22 Rosa Herr, MIRTA [address] [place] [address] [address] [place] [address] Quality Assurance Representative 06/03/22 Braden Sherwood DO [address] [facility] [address] [place] [address] Referring Physician Psychiatry 06/04/22 Ladonna Martinez, COLLIN [address] [facility] [address] [place] [address] Nurse Practitioner Nurse Practitioner 10/31/23 Kamila Witt NP [address] [place] [address] Nurse Practitioner Hospice and Palliative Medicine 03/01/24 documented as of this encounter
--- OUTSIDE RECORDS SUMMARY | 2024-11-26 11:01 | XMS_ITS | Clinical Summary ---
Author Organization [facility] Address [address] [place] [address] Care Team Providers Care Stiff Straw Hat Washer Name Role Phone Luis Saunders MD Unavailable [phone] Jammie Burdick MD Unavailable [phone] Ervin Garcia MD Unavailable Haleigh Young MD Primary Care Provi naye Jean Carlos Berrios MD Unavailable [phone] Rosa Herr RN Unavailable Braden Sherwood DO Unavailable [phone] Ladonna Martinez MAITRE D' Unavailable Kamila Witt NP Unavailable [phone] Allergies Active Allergy Reactions Criticality Noted Date [...] 01/28/2024 Assessment & Plan (07/27/2024 3:57 PM VICE PRESIDENT CORPORATE COMMUNICATIONS): Symptom duration 2 weeks Recent covid, flu [...] 11/01/2023 Assessment & Plan (11/01/2023 10:01 AM VICE PRESIDENT CORPORATE COMMUNICATIONS): Chronic, persistent Encouraged to follow up with pain management Encouraged to update me after the visit Continue lyrica as prescribed Urinary incontinence 11/01/2023 Assessment & Plan (11/01/2023 10:05 AM VICE PRESIDENT CORPORATE COMMUNICATIONS): Chronic, persistent Will place referral to urology for guidance Update me after the visit Incontinence of feces with fecal urgency Assessment & Plan (11/01/2023 10:02 AM VICE PRESIDENT CORPORATE COMMUNICATIONS): Chronic, persistent Encouraged to follow up with Dr Burdick Update me after the visit Call for questions Chronic respiratory failure with hypoxia Assessment & Plan (06/28/2024 11:25 AM CDT): Chronic. Stable. Continue supplemental oxygen, 2 L. continue to follow with pulmonology. Assessment & Plan (04/12/2024 1:17 PM CDT): Chronic, persistent Oxygen level improved today Will reach out to her industrial chemicals supervisor given her numbers, I do worry her [...] was reviewed with the patient and her electronic warfare operator Assessment & Plan (02/09/2024 11:30 AM CDT): [...] 01/26/2022 Assessment & Plan (10/29/2024 1:54 PM VICE PRESIDENT CORPORATE COMMUNICATIONS): BMI Follow-up includes: education provided. Assessment & Plan (10/17/2024 12:08 PM VICE PRESIDENT CORPORATE COMMUNICATIONS): Chronic, stable BMI Follow-up includes: Encouraged healthy [...] and cardizem Continue to follow with her real estate legal assistant Update me with any changes Call for [...] 11/24/2021 Assessment & Plan (11/01/2023 10:01 AM VICE PRESIDENT CORPORATE COMMUNICATIONS): Chronic, persistent Encouraged to follow up with [...] PM CDT): Chronic, stable Continue valtrex through HAND I THERMAL CUTTER History of Lena fundoplication 08/17/2021 History of [...] Continue Doug Set up follow-up with her real estate legal assistant as well Update me with any changes Call for questions or concerns Assessment & Plan (05/21/2022 6:17 PM CDT): With SVT during her hospital stay at [facility] Continue doug Encouraged follow up with [...] monitor Assessment & Plan (09/16/2020 3:02 PM VICE PRESIDENT CORPORATE COMMUNICATIONS): Unclear etiology She is not specific on [...] pt Assessment & Plan (09/16/2020 3:01 PM VICE PRESIDENT CORPORATE COMMUNICATIONS): Currently only taking effexor contineu current management Assessment & Plan (07/15/2020 8:50 AM VICE PRESIDENT CORPORATE COMMUNICATIONS): We will start lyrica 150 mg BID [...] groups. Assessment & Plan (11/01/2023 10:06 AM VICE PRESIDENT CORPORATE COMMUNICATIONS): Chronic, worse Encouraged to reach out to [...] concerns Assessment & Plan (07/15/2020 8:48 AM VICE PRESIDENT CORPORATE COMMUNICATIONS): We will continue this current regime, she [...] 07/08/2020 Assessment & Plan (11/01/2023 10:01 AM VICE PRESIDENT CORPORATE COMMUNICATIONS): Chronic, persistent Encouraged to follow up with [...] of lumbar spine. Continue pain management with [place] 5/325 mg q.6 p.r.n., lidocaine patch, Flexeril 5 mg t.i.d. p.r.n.. PT/OT care. Patient need to follow up with Dr. Delatorre outpatient Assessment & Plan (11/24/2021 10:34 AM CDT): Will check xray We discussed PT- she is unable to afford it She is going home exercises Continue supportive care Further guidance once we have the results Assessment & Plan (07/15/2020 8:48 AM VICE PRESIDENT CORPORATE COMMUNICATIONS): Recommend THC, we will seek out a [...] questions Assessment & Plan (07/15/2020 8:49 AM VICE PRESIDENT CORPORATE COMMUNICATIONS): Remeron and effecor Taking only 150 mg [...] (09/07/2018): Added automatically from request for surgery [id number] Assessment & Plan (03/29/2023 4:54 PM CDT): [...] inhalers Assessment & Plan (09/16/2020 3:02 PM VICE PRESIDENT CORPORATE COMMUNICATIONS): Continue seeing pulm faculty support coordinator antibiotic and steroids Assessment & Plan (07/08/2020 8:35 AM CDT): Continue to follow-up with pulm History of aspiration pneumonia 05/18/2018 Iron deficiency anemia, unspecified 03/20/2018 Assessment & Plan (11/01/2023 10:09 AM VICE PRESIDENT CORPORATE COMMUNICATIONS): Chronic, stable Managed by heme/onc Update me [...] has a call in to the new real estate legal assistant to see if she can follow-up sooner [...] CDT): Now uses vaping Chronic bullous emphysema ([facility]/HCC) 10/26/2016 Overview (12/17/2016): Bullous emphysema Assessment & [...] Garcia Assessment & Plan (07/15/2020 8:47 AM VICE PRESIDENT CORPORATE COMMUNICATIONS): Likely resulting in her SOB with the change in medications Continue inhaler and seeing pulm History of gastric ulcer 08/04/2015 Assessment & Plan (03/29/2023 4:54 PM CDT): Resolved Continue Nexium Update me with changes or concerns Continue to follow with GI History of fall Spinal stenosis of lumbar region at multiple lev els Assessment & Plan (11/01/2023 10:02 AM VICE PRESIDENT CORPORATE COMMUNICATIONS): Chronic, persistent Encouraged to follow up with [...] (05/30/2022): Added automatically from request for surgery [id number] Diverticulitis large intesti ne w/o perforation or [...] CDT): Chronic, persistent Labs reviewed from her materials engineer Referral to hematology pending Update me after [...] (09/07/2018): Added automatically from request for surgery [id number] Gastric ulcer 08/04/2015 03/29/2023 Encounters Date Type Department Care Team Description 11/26/2024 Nurse Triage [address] [phone] Haleigh Young MD 11/23/2024 Nurse Triage [address] [phone] Haleigh Young MD 11/23/2024 Telephone [facility] Pulmonology [address] [place] [address] [place] [phone] Syl Jaimes, MIRTA 11/19/2024 Orders Only [address] [phone] Haleigh Young MD Chronic respiratory failure with hypoxia (HCC) (Primary Dx) 11/14/[address] [phone] Haleigh Young MD Medical Question/Miscellaneo us 11/09/[address] [phone] Haleigh Young MD Medical Question/Miscellaneo us 10/29/2024 1:30 PM VICE PRESIDENT CORPORATE COMMUNICATIONS Office Visit [address] [phone] Heather Arteaga PA Acute bilateral lower abdominal pain (Primary Dx); Chronic bullous emphysema (CMS/HCC) (HCC); Chronic respiratory failure with hypoxia (HCC); Class 1 obesity due to excess calories with serious comorbidity and body mass index (BMI) of 30.0 to 30.9 in adult 10/29/2024 Orders Only [address] [phone] Haleigh Young MD Chronic respiratory failure with hypoxia (HCC) (Primary Dx) 10/29/[address] [phone] Haleigh Young MD 10/24/2024 10:55 AM VICE PRESIDENT CORPORATE COMMUNICATIONS Lab [facility] [address] [place] [id number] Hyperglycemia; Iron deficiency anemia due to chronic blood loss 10/24/2024 10:30 AM VICE PRESIDENT CORPORATE COMMUNICATIONS Office Visit [facility] Pulmonary [address] [place] [phone] Ervin Garcia MD Chronic obstructive pulmonary disease, unspecified COPD type (HCC) (Primary Dx); PEREZ (dyspnea on exertion); Chronic respiratory failure with hypoxia (HCC) 10/17/2024 10:45 AM VICE PRESIDENT CORPORATE COMMUNICATIONS Office Visit [address] [phone] Haleigh Young MD Narcotic dependence (HCC) (Primary Dx); Benzodiazepine dependence (HCC); Generalized anxiety disorder; Iron deficiency anemia due to chronic blood loss; Hyperglycemia; Class 1 obesity due to excess calories with serious comorbidity and body mass index (BMI) of 32.0 to 32.9 in adult 10/16/2024 [facility] Outreach [facility] Organization [address] [place] [phone] Sally Castañeda MA 10/15/2024 Nurse Triage [address] [phone] Haleigh Young MD 10/12/2024 Orders Only [facility] [address] [phone] Heather Arteaga PA 10/12/2024 [facility] ED Outreach [facility] Accountable Care Organization [address] [place] [address] Sally Castañeda MA 10/11/2024 3:06 AM VICE PRESIDENT CORPORATE COMMUNICATIONS - 10/11/2024 7:25 AM [facility] Emergency Department [address] [place] [address] Jean Claude Matta Jr., MD Paruchuri, Tharun, MD Narcotic dependence (HCC) (Primary Dx); Benzodiazepine dependence (HCC); Atypical chest pain; End stage COPD (HCC); Palliative care patient Discharge Disposition: Discharge to home or self care 10/11/2024 Telephone [facility] Pall[facility] Care [address] [place] [phone] Kamila Witt NP 10/11/2024 Orders Only Hospitalists [address] [facility] Suite [facility] [place] [address] Manuelito Baltazar MD 10/11/[address] [phone] Haleigh Young MD Med Refill 10/11/2024 Telephone [facility] [address] [phone] Haleigh Young MD Appointment Request 10/10/2024 Documentation [facility] Palliative Care [address] [place] [phone] Kamila Witt NP 10/02/2024 Orders Only [facility] Palliative Care [address] [place] [phone] Kamila Witt NP Chronic bilateral low back pain with bilateral sciatica; Spinal stenosis of lumbar region at multiple levels 09/26/2024 Telephone [facility] [address] [phone] Haleigh Young MD Poor Memory/Concentration 09/24/2024 Telephone [facility] [address] [phone] Haleigh Young MD 09/23/2024 5:01 AM [facility] - 09/23/2024 11:05 AM [facility] Emergency [facility] Emergency Department [address] [place] [address] Sushant Ramirez DO Medication refill (Primary Dx); Chronic pain syndrome; Chronic bilateral low back pain with bilateral sciatica; Spinal stenosis of lumbar region at multiple levels; Hypoglycemia Discharge Disposition: Discharge to home or self care 09/22/2024 Telephone [facility] Palliative Care [address] [place] [phone] Kamila Witt NP 09/18/2024 Orders Only [facility] Palliative Care [address] [place] [phone] Kamila Witt NP COPD exacerbation (HCC) (Primary Dx) 09/10/2024 Orders Only [facility] Palliative Care [address] [place] [phone] Kamila Witt NP Chronic bilateral low back pain with bilateral sciatica; Spinal stenosis of lumbar region at multiple levels 09/07/2024 1:35 PM [facility] - 09/07/2024 1:45 PM [facility] Emergency Department [address] [place] [address] Discharge Disposition: Left without being seen 09/06/[address] [phone] Haleigh Young MD Shortness of Breath 08/30/2024 Telephone [facility] [address] [facility] [address] [place] [address] Ervin Garcia MD Sick Call [...] 09/07/2018 Added automatically from request for surgery [id number] Community acquired pneumonia, bilateral 08/17/20 Diverticulitis Kidney infection Chronic, continuous use of [...] materials from doctor or pharmacy Sometimes 09/22/2023 [facility] Utilities Answer Date Recorded In the past 12 months has th e [employer], gas, oil, or water [employer] threatened to shut off services in your [...] week 10/18/2024 How often do you attend [facility] or temple services? Never 10/18/2024 Do you belong to any clubs o r organizations such as christian groups, unions, fraternal or athletic groups, or [...] place to sleep or slept in a custodial (including now)? No 10/17/2023 Housing Stability Vital Sign Answer Lucas e Recorded In the last 12 months, was t here a time when you were not able to pay the mortgage or rent on time? No 10/18/2024 In the past 12 months, how m any times have you moved where you were living? 1 10/18/2024 At any time in the past 12 m [facility], were you homeless or living in a custodial (including now)? No 10/18/2024 Personal Safety Answer Date Recorded Have you ever been in or are you currently in a harmful physical or emotional relationship or is someone making you feel afraid or unsafe? Denies 10/10/2024 Comments No Sex and Gender Information Value Date Recorded Sex Assigned at Not on file Legal Sex Female 1:41 PM VICE PRESIDENT CORPORATE COMMUNICATIONS Gender Identity Not on file Sexual Orientation [...] Comments Blood Pressure 124/78 10/29/2024 1:23 PM VICE PRESIDENT CORPORATE COMMUNICATIONS Pulse 97 10/29/2024 1:23 PM VICE PRESIDENT CORPORATE COMMUNICATIONS Temperature 36.7 C (98.1 F) 10/29/2024 1:23 PM VICE PRESIDENT CORPORATE COMMUNICATIONS Respiratory Rate 16 10/29/2024 1:23 PM VICE PRESIDENT CORPORATE COMMUNICATIONS Oxygen Saturation 98% 10/29/2024 1:23 PM VICE PRESIDENT CORPORATE COMMUNICATIONS Inhaled Oxygen Concentration - - Weight 80.7 kg (178 lb) 10/29/2024 1:23 PM VICE PRESIDENT CORPORATE COMMUNICATIONS Height 162.6 cm (5' 4 ) 10/29/2024 1:23 PM VICE PRESIDENT CORPORATE COMMUNICATIONS Body Mass Index 30.55 10/29/2024 1:23 PM VICE PRESIDENT CORPORATE COMMUNICATIONS Plan of Treatment Health Maintenance Due Date Last Done Comments DTaP/Tdap/Td Vaccine (1 - Tdap) 1969 Zoster Vaccine (1 of 2) 2008 Well Visit 65+ 03/29/2024 03/29/2023 Covid-19 Vaccine (4 - 2023-2 5 season) 2024 07/09/2022, 07/31/2021, 07/03/2021 Fall Risk Assessment 02/03/2025 02/04/2024, 03/29/20 23 Osteoporosis Screening-Bone Density Scan 02/22/2025 02/22/2023 Breast [...] ACO Care Management On track(2023 1:13 PM VICE PRESIDENT CORPORATE COMMUNICATIONS) Rosa Gu, RN Note: Problem: Knowledge deficit [...] ACO Care Management On track(2024 10:21 AM VICE PRESIDENT CORPORATE COMMUNICATIONS) No Bev Du LCSW Note: Problem: Need for Community Resources Interventions: - Provide patient/family with a list of appropriate resources for their specific need. - Help to coordinate resources. - Follow up to ensure patient/family has connected with the appropriate resources / personnel. CCM Chronic Pain Care Plan Chronic Care Management No Manjula Caal MAITRE D' Note: Problem: Chronic Pain Goals: 1. Minimize further functional decline 2. Maximize quality of life 3. Control pain Strategies: - Activity/exercise program recommendation - Conservative stepwise pain medicine strategy with multi-disciplinary approach - Recommend healthy lifestyle strategies and compensatory methods as needed Medical Devices Implanted Type Area Cloth Washer Operator Device Identifier Shelf Expiration Date Model / Serial / Lot Left Foot Screws Foot Procedures Procedure Name Priority Date/Time Associated Diagnosis Comments ALBUMIN CREATININE RATIO, URINE Routine 10/24/2024 11:10 AM VICE PRESIDENT CORPORATE COMMUNICATIONS Hyperglycemia IRON PROFILE W/ IBC Routine 10/24/2024 1 1:07 AM VICE PRESIDENT CORPORATE COMMUNICATIONS Iron deficiency anemia due to chronic blood loss HEMOGLOBIN A1C Routine 10/24/2024 11:07 AM VICE PRESIDENT CORPORATE COMMUNICATIONS Hyperglycemia TROPONIN T HIGH-SENSITIVITY 2-HOUR Timed 10/10/2024 9:50 PM VICE PRESIDENT CORPORATE COMMUNICATIONS XR CHEST 1 VIEW ED 10/10/2024 8:17 PM VICE PRESIDENT CORPORATE COMMUNICATIONS ECG 12-LEAD STAT 10/10/2024 8:07 PM VICE PRESIDENT CORPORATE COMMUNICATIONS EGFR STAT 10/10/2024 7:55 PM VICE PRESIDENT CORPORATE COMMUNICATIONS DIFFERENTIAL AUTO STAT 10/10/2024 7:5 5 PM VICE PRESIDENT CORPORATE COMMUNICATIONS TROPONIN T HIGH-SENSITIVITY SERIES (BASELINE, 2HR, 4HR, 6HR) STAT 10/10/2024 7:55 PM VICE PRESIDENT CORPORATE COMMUNICATIONS COMPREHENSIVE METABOLIC PANEL STAT 10/10/2024 7:55 PM VICE PRESIDENT CORPORATE COMMUNICATIONS CBC WITH AUTO DIFFERENTIAL STAT 10/10/2024 7:55 PM VICE PRESIDENT CORPORATE COMMUNICATIONS POCT GLUCOSE DEVICE Routine 09/23/2024 1 0:55 AM VICE PRESIDENT CORPORATE COMMUNICATIONS POCT GLUCOSE DEVICE Routine 09/23/2024 9 :09 AM VICE PRESIDENT CORPORATE COMMUNICATIONS POCT GLUCOSE DEVICE Routine 09/23/2024 8 :39 AM VICE PRESIDENT CORPORATE COMMUNICATIONS POCT GLUCOSE DEVICE Routine 09/23/2024 7 :57 AM VICE PRESIDENT CORPORATE COMMUNICATIONS POCT GLUCOSE DEVICE Routine 09/23/2024 7 :07 AM VICE PRESIDENT CORPORATE COMMUNICATIONS URINALYSIS AND REFLEX TO MICROSCOPIC AND CULTURE STAT 09/23/2024 6:06 AM VICE PRESIDENT CORPORATE COMMUNICATIONS EGFR STAT 09/23/2024 5:06 AM VICE PRESIDENT CORPORATE COMMUNICATIONS DIFFERENTIAL AUTO STAT 09/23/2024 5:0 6 AM VICE PRESIDENT CORPORATE COMMUNICATIONS COMPREHENSIVE METABOLIC PANEL STAT 09/23/2024 5:06 AM VICE PRESIDENT CORPORATE COMMUNICATIONS CBC WITH AUTO DIFFERENTIAL STAT 09/23/2024 5:06 AM VICE PRESIDENT CORPORATE COMMUNICATIONS POCT GLUCOSE DEVICE Routine 09/23/2024 5 :04 AM VICE PRESIDENT CORPORATE COMMUNICATIONS DIAGNOSTIC MAMMOGRAM BILATERAL W SUKUMAR Schedule Routine, Read Routine (OP Routine) 04/09/2024 8:33 AM CDT Follow-up examination of abnormal mammogram COLONOSCOPY 10/28/2023 3:01 PM VICE PRESIDENT CORPORATE COMMUNICATIONS HEPATITIS C ANTIBODY Routine 08/09/2023 1:28 PM VICE PRESIDENT CORPORATE COMMUNICATIONS DEXA AXIAL SKELETON BONE DENSITY 1 OR [...] Albumin Creatinine Ratio, Urine (10/24/2024 11:10 AM VICE PRESIDENT CORPORATE COMMUNICATIONS) Albumin Ur <12.0 mg/L Comment: Interpretive Data No reference range established. Current interpretive data was last revised 2019. Testing performed by: [address] [address] Creatinine Ur 33.4 mg/dL [facility] Comment: Interpretive Data No reference range established. Current interpretive data was last revised 2019. Testing performed by: [address] [address] Albumin Creatinine Ratio, Ur <36(H) 1 - 29 mg/g [facility] Comment:Testing performed by : [address] [address] Urine 10/24/2024 11:1 0 AM VICE PRESIDENT CORPORATE COMMUNICATIONS 10/24/2024 11:54 AM VICE PRESIDENT CORPORATE COMMUNICATIONS us Haleigh Young MD LAB URINE ORDERABLE S Final Result [facility] [address] [facility] Department [place] [address] * (ABNORMAL) Iron profile w/ IBC (10/24/2024 11:07 AM VICE PRESIDENT CORPORATE COMMUNICATIONS) Pathologist [facility] Iron 45 35 - 145 mcg/dL Comment:Testing performed by : [address] [address] TIBC 271 250 - 400 mcg/dL [facility] HOLT Comment:Testing performed by : [address] [address] Transferrin saturation 17(L) 20 - 50 % [facility] Comment:Testing performed by : [address] [address] Blood 10/24/2024 11:0 7 AM VICE PRESIDENT CORPORATE COMMUNICATIONS 10/24/2024 11:53 AM VICE PRESIDENT CORPORATE COMMUNICATIONS Haleigh Young MD LAB BLOOD ORDERABLE S Final Result Performing Organization Address [facility] [[email or web address]] Co de Phone Number [facility] [place] [address] * Hemoglobin A1c (10/24/2024 11:07 AM VICE PRESIDENT CORPORATE COMMUNICATIONS) Pathologist [facility] Hgb A1C 5.4 4.0 - 5.6 % Comment:Testing performed by : [address] [address] Estimated Average Glucose 108 mg/dL [facility] Comment: The ADA recommends reporting an estimated Average Glucose (eAG) with all Hemoglobin A1c results using the equation derived from a study of 507 normal and diabetic adults. Minority populations were underrepresented and children were not included. (Diabetes Care 31:6457-6805, 2008). The eAG is not equivalent to a fasting glucose. Testing performed by: [address] [address] Blood 10/24/2024 11:0 7 AM VICE PRESIDENT CORPORATE COMMUNICATIONS 10/24/2024 11:57 AM VICE PRESIDENT CORPORATE COMMUNICATIONS us Haleigh Young MD LAB BLOOD ORDERABLE S Final Result Performing Organization Address City/[facility] [[email or web address]] Co de Phone Number [facility] Department [place] [address] * Troponin T high-sensitivity 2-hour (10/10/2024 9:50 PM VICE PRESIDENT CORPORATE COMMUNICATIONS) Pathologist [facility] Trop T hs 10 <=14 ng/L Comment: Interpretive Data For further hscTnT resources including the diagnostic algorithm and an aid in interpretation, copy and paste this link: [email or web address].testcatalog.org/show/[email or web address] Current Interpretive Data last revised 2020. Testing performed by: [facility], [address] [place] [address]., [address] Trop T hs delta -1 ng/L [facility] HOLT Comment:Testing performed by : [facility], [address] [place] [address]., [address] Trop T hs interp Insignificant [facility] HOLT Comment:Testing performed by : [address] [address] Blood 10/10/2024 9:50 PM VICE PRESIDENT CORPORATE COMMUNICATIONS 10/10/2024 10:02 PM VICE PRESIDENT CORPORATE COMMUNICATIONS us Jean Claude Matta Jr., MD LAB BLOOD ORDERABLES Fi nal Result [facility] [address] [facility] Department [place] [address] * XR Chest 1 Vw Portable (if patient condition/safety warrant portable) (10/10/2024 8:17 PM VICE PRESIDENT CORPORATE COMMUNICATIONS) Anatomical Region Laterality Modality Body, Chest N/A Computed Radiogr aphy 10/10/2024 9:08 PM VICE PRESIDENT CORPORATE COMMUNICATIONS Narrative 10/10/2024 9:11 PM VICE PRESIDENT CORPORATE COMMUNICATIONS EXAM DESCRIPTION: XR CHEST 1 VIEW REASON [...] Ac Mcdonald M.D. NS: NS Report ID: [id number] Reading Location: [id number] Procedure Note Ac Mcdonald MD - 10/10/2024 [...] Ac Mcdonald M.D. NS: NS Report ID: [id number] Reading Location: [id number] Jean Claude Matta Jr., MD IMG XR PROCEDURES Final Result * ECG 12 lead (10/10/2024 8:07 PM VICE PRESIDENT CORPORATE COMMUNICATIONS) Ventricular Rate EKG/Min 79 BPM [facility] Atrial Rate [address] [facility] OR-Interval (MSEC) [address] [facility] QRS-Interval (MSEC) [address] [facility] QT-Interval (MSEC) [address] [facility] QTc [address] [facility] P [place] [address] [facility] R [place] [address] [facility] T [place] [address] [facility] Diagnosis Normal sinus rhythm Normal ECG When compared with ECG of 03-FEB-2024 18:59, No significant change was found Confirmed by LYNDSAY GARLAND M.D. ([id number]) on 10/12/2024 12:10:[address] [facility] 10/10/2024 8:07 PM VICE PRESIDENT CORPORATE COMMUNICATIONS 10/12/2024 12:10 PM VICE PRESIDENT CORPORATE COMMUNICATIONS us Jean Claude Matta Jr., MD ECG ORDERABLES Final R esult Performing Organization Address [facility] [[email or web address]] Co de Phone Number [facility] * Troponin T high-sensitivity series (baseline, 2hr, 4hr, 6hr) (10/10/2024 7:55 PM VICE PRESIDENT CORPORATE COMMUNICATIONS) [facility] Trop T hs 11 <=14 ng/L Comment: Interpretive Data For further hscTnT resources including the diagnostic algorithm and an aid in interpretation, copy and paste this link: [email or web address].testcatalog.org/[email or web address] Current Interpretive Data last revised 2020. Testing performed by: [facility], [address] [place] [address]., [address] Blood 10/10/2024 7:55 PM VICE PRESIDENT CORPORATE COMMUNICATIONS 10/10/2024 8:03 PM VICE PRESIDENT CORPORATE COMMUNICATIONS us Jean Claude Matta Jr., MD LAB BLOOD ORDERABLES Fi nal Result ROSALBA [address] [facility] [place] [address] * eGFR (10/10/2024 7:55 PM VICE PRESIDENT CORPORATE COMMUNICATIONS) [facility] eGFR >90 >=60 mL/min/1. 73 m2 Comment: [...] was last reviewed 2021. Testing performed by: [address] [address] Blood 10/10/2024 7:55 PM VICE PRESIDENT CORPORATE COMMUNICATIONS 10/10/2024 8:03 PM VICE PRESIDENT CORPORATE COMMUNICATIONS us Jean Claude Matta Jr., MD LAB BLOOD ORDERABLES nal Result BARBARAMEHDI [address] [facility] [place] [address] * Differential, auto (10/10/2024 7:55 PM VICE PRESIDENT CORPORATE COMMUNICATIONS) Neutrophil abs 4.6 1.5 - 6.5 K/cumm Comment:Testing performed by : [address] [address] Imm gran abs 0.0 0.0 - 0.1 K/cumm ROSALBA HOLT Comment:Testing performed by : [address] [address] Lymphocyte abs 1.5 0.8 - 3.3 K/cumm ROSALBA HOLT Comment:Testing performed by : [address] [address] Monocyte abs 0.7 0.2 - 0.8 K/cumm ROSALBA HOLT Comment:Testing performed by : [address] [address] Eosinophil abs 0.3 0.0 - 0.5 K/cumm ROSALBA Comment:Testing performed by : [address] [address] Basophil abs 0.0 0.0 - 0.1 K/cumm ROSALBA Comment:Testing performed by : [address] [address] Neutrophil pct 64.8 % ROSALBA Comment: Interpretive Data Percent cell count reference ranges are not reported, since discordance with absolute values may lead to misinterpretation of CBC data. Current Interpretive Data was last revised on 2017. Testing performed by: [address] [address] Imm gran pct 0.4 % ROSALBA Comment: Interpretive Data Percent cell count reference ranges are not reported, since discordance with absolute values may lead to misinterpretation of CBC data. Current Interpretive Data was last revised on 2017. Testing performed by: [address] [address] Lymphocyte pct 20.8 % [facility] Comment: Interpretive Data Percent cell count reference ranges are not reported, since discordance with absolute values may lead to misinterpretation of CBC data. Current Interpretive Data was last revised on 2017. Testing performed by: [address] [address] Monocyte pct 9.4 % ROSALBA Comment: Interpretive Data Percent cell count reference ranges are not reported, since discordance with absolute values may lead to misinterpretation of CBC data. Current Interpretive Data was last revised on 2017. Testing performed by: [address] [address] Eosinophil pct 4.2 % ROSALBA Comment: Interpretive Data Percent cell count reference ranges are not reported, since discordance with absolute values may lead to misinterpretation of CBC data. Current Interpretive Data was last revised on 2017. Testing performed by: [address] [address] Basophil pct 0.4 % [facility]ER[facility] HOLT Comment: Interpretive Data Percent cell count reference ranges are not reported, since discordance with absolute values may lead to misinterpretation of CBC data. Current Interpretive Data was last revised on 2017. Testing performed by: [address] [address] Blood 10/10/2024 7:55 PM VICE PRESIDENT CORPORATE COMMUNICATIONS 10/10/2024 8:03 PM VICE PRESIDENT CORPORATE COMMUNICATIONS us Jean Claude Matta Jr., MD LAB BLOOD ORDERABLES Fi nal Result ROSALBA [address] [facility] Department [place] [address] * (ABNORMAL) CBC with auto differential (10/10/2024 7:55 PM VICE PRESIDENT CORPORATE COMMUNICATIONS) WBC 7.1 3.8 - 9.9 K/cumm Comment:Testing performed by : [address] [address] Hgb 10.9(L) 11.9 - 15.5 g/dL ROSALBA HOLT Comment:Testing performed by : [address] [address] Hct 37.0 35.6 - 45.5 % ROSALBA HOLT Comment:Testing performed by : [address] [address] Plt 355 150 - 400 K/cumm ROSALBA HOLT Comment:Testing performed by : [address] [address] MPV 10.5 9.1 - 12.3 fL ROSALBA Comment:Testing performed by : [address] [address] RBC 5.01 3.90 - 5.20 M/cumm ROSALBA HOLT Comment:Testing performed by : [address] [address] MCV 73.9(L) 81.3 - 96.4 fL ROSALBA HOLT Comment:Testing performed by : [address] [address] MCH 21.8(L) 27.1 - 33.3 pg ROSALBA HOLT Comment:Testing performed by : [address] [address] MCHC 29.5(L) 32.3 - 35.7 g/dL ROSALBA HOLT Comment:Testing performed by : [address] [address] RDW CV 17.1(H) 11.1 - 14.9 % ROSALBA HOLT Comment:Testing performed by : [address] [address] RDW SD 44.8 35.7 - 48.1 fL ROSALBA HOLT Comment:Testing performed by : [address] [address] NRBC abs 0.00 0.00 - 0.01 K/cumm ROSALBA HOLT Comment:Testing performed by : [address] [address] Blood Venous blood specimen / Unknown 10/10/2024 7:55 PM VICE PRESIDENT CORPORATE COMMUNICATIONS 10/10/2024 8:03 PM VICE PRESIDENT CORPORATE COMMUNICATIONS us Jean Claude Matta Jr., MD LAB BLOOD ORDERABLES Fi nal Result ROSALBA [address] [facility] Department of Laboratories [place], [place] [id number] * (ABNORMAL) Comprehensive metabolic panel (10/10/2024 7:55 PM VICE PRESIDENT CORPORATE COMMUNICATIONS) Sodium 136 135 - 145 mmol/L Comment:Testing performed by : [address] [address] Potassium, pl 3.3 3.3 - 4.9 mmol/L ROSALBA HOLT Comment: Hemolyzed; Potassium value may be falsely elevated by as much as 1.0 mmol/L. Suggest redraw and reanalysis. Testing performed by: [address] [address] Chloride 99 97 - 110 mmol/L ROSALBA HOLT Comment:Testing performed by : [address] [address] CO2 23 22 - 32 mmol/L ROSALBA HOLT Comment:Testing performed by : [address] [address] Anion gap 14 2 - 15 mmol/L ROSALBA Comment:Testing performed by : [address] [address] BUN 4(L) 6 - 25 mg/dL ROSALBA Comment:Testing performed by : [address] [address] Creatinine 0.69 0.60 - 1.10 mg/dL ROSALBA Comment:Testing performed by : [address] [address] Glucose 118 70 - 199 mg/dL ROSALBA [...] was last revised 2022. Testing performed by: [address] [address] Calcium 9.7 8.5 - 10.3 mg/dL ROSALBA Comment:Testing performed by : [address] [address] Bilirubin, total 0.4 0.1 - 1.2 mg/dL ROSALBA Comment:Testing performed by : [address] [address] Protein, pl 7.0 6.5 - 8.5 g/dL ROSALBA Comment:Testing performed by : [address] [address] Albumin 3.7 3.5 - 5.0 g/dL ROSALBA Comment:Testing performed by : [address] [address] Alk phos 124 40 - 130 Units/L ROSALBA Comment:Testing performed by : [address] [place]., [address] ALT 16 7 - 45 Units/L ROSALBA Comment:Testing performed by : [address] [address] AST 18 10 - 45 Units/L ROSALBA Comment: Hemolyzed; result may be falsely elevated Testing performed by: [address] [address] Blood 10/10/2024 7:55 PM VICE PRESIDENT CORPORATE COMMUNICATIONS 10/10/2024 8:03 PM VICE PRESIDENT CORPORATE COMMUNICATIONS Jean Claude Matta Jr., MD LAB BLOOD ORDERABLES Fi nal Result Performing Organization Address [facility] de Phone Number [address] [employer] [place] [address] * POCT glucose (09/23/2024 10:55 AM VICE PRESIDENT CORPORATE COMMUNICATIONS) Glucose, POC 92 70 - 199 mg/dL Comment:Testing performed by : [address], [address] Glucose comment 1 Use This Result ROSALBA Comment:Testing performed by : [address] [address] Blood 09/23/2024 10:5 5 AM VICE PRESIDENT CORPORATE COMMUNICATIONS 09/23/2024 10:55 AM VICE PRESIDENT CORPORATE COMMUNICATIONS Sushant Ramirez DO LAB POCT ORDERABLES - DEVICE F inal Result Performing Organization Address [facility] de Phone Number [address] [employer] [place] [address] * POCT glucose (09/23/2024 9:09 AM VICE PRESIDENT CORPORATE COMMUNICATIONS) Glucose, POC 103 70 - 199 mg/dL Comment:Testing performed by : [address] [address] Glucose comment 1 Use This Result ROSALBA Comment:Testing performed by : [address] [address] Blood 09/23/2024 9:09 AM VICE PRESIDENT CORPORATE COMMUNICATIONS 09/23/2024 9:09 AM VICE PRESIDENT CORPORATE COMMUNICATIONS Sushant [employer] LAB POCT ORDERABLES - DEVICE F inal Result Performing Organization Address City/[facility] [[email or web address]] Co de Phone Number ROSALBA [facility] [employer] [place] [address] * POCT glucose (09/23/2024 8:39 AM VICE PRESIDENT CORPORATE COMMUNICATIONS) Glucose, POC 96 70 - 199 mg/dL Comment:Testing performed by : [address] [address] Glucose comment 1 Use This Result ROSALBA Comment:Testing performed by : [address] [address] Blood 09/23/2024 8:39 AM VICE PRESIDENT CORPORATE COMMUNICATIONS 09/23/2024 8:39 AM VICE PRESIDENT CORPORATE COMMUNICATIONS Sushant [employer] LAB POCT ORDERABLES - DEVICE F inal Result Performing Organization Address [facility] de Phone Number BARBARA[address] [address] * POCT glucose (09/23/2024 7:57 AM VICE PRESIDENT CORPORATE COMMUNICATIONS) Glucose, POC 91 70 - 199 mg/dL Comment:Testing performed by : [address] [address] Glucose comment 1 Use This Result ROSALBA Comment:Testing performed by : [address] [address] Blood 09/23/2024 7:57 AM VICE PRESIDENT CORPORATE COMMUNICATIONS 09/23/2024 7:57 AM VICE PRESIDENT CORPORATE COMMUNICATIONS Sushant [employer] LAB POCT ORDERABLES - DEVICE F inal Result Performing Organization Address City/[facility] [[email or web address] Co de Phone Number ROSALBA [facility] [employer] [place] [address] * (ABNORMAL) POCT glucose (09/23/2024 7:07 AM VICE PRESIDENT CORPORATE COMMUNICATIONS) Glucose, POC 49(C) 70 - 199 mg/dL Comment:Testing performed by : [address] [address] Glucose comment 1 Use This Result ROSALBA HOLT Comment:Testing performed by : [address] [address] Blood 09/23/2024 7:07 AM VICE PRESIDENT CORPORATE COMMUNICATIONS 09/23/2024 7:07 AM VICE PRESIDENT CORPORATE COMMUNICATIONS us Sushant Aidanrukhsana DO LAB POCT ORDERABLES - DEVICE F inal Result ROSALBA [address] [facility] Department [place] [address] * Urinalysis reflex to microscopic and culture Urine (09/23/2024 6:06 AM VICE PRESIDENT CORPORATE COMMUNICATIONS) Color, ur Straw Yellow Comment:Testing performed by : [address] [address] Clarity, ur Clear Clear ROSALBA Comment:Testing performed by : [address] [address] Specific gravity, ur 1.009 1.003 - 1.030 ROSALBA Comment:Testing performed by : [address] [address] pH, urine 6.5 ROSALBA Comment: Interpretive Data U rine pH is affected by diet, medications, systemic acid-base disturbances, and renal tubular function. pH may affect urinary stone formation. For example, urine pH below 6.0 may help reduce the tendency for calcium phosphate stones and pH greater than 6.0 may reduce the tendency for uric acid stone formation. Source: [employer] Current Interpretive Data was last revised on 2017 Testing performed by: [address] [address] Protein, ur ql Negative Negative ROSALBA HOLT Comment:Testing performed by : [address] [address] Glucose, ur ql Negative Negative ROSALBA HOLT Comment:Testing performed by : [place] [address], [place]., [address] Ketones, ur Negative Negative ROSALBA Comment:Testing performed by : [address], [place]., [address] Bilirubin, ur Negative Negative ROSALBA Comment:Testing performed by : [address], [place]., [address] Blood, ur Negative Negative ROSALBA Comment:Testing performed by : [address], [place]., [address] Urobilinogen, ur <2.0 <2.0 mg/dL ROSALBA Comment:Testing performed by : [address], [place]., [address] Nitrite, ur Negative Negative ROSALBA Comment:Testing performed by : [address], [place]., [address] Leukocyte esterase, ur Negative Negative ROSALBA Comment:Testing performed by : [address], [place]., [address] UA reflex comment Reflex conditions for microscopic UA and culture not met. ROSALBA Comment:Testing performed by : [address], [place]., [address] Urine 09/23/2024 6:06 AM VICE PRESIDENT CORPORATE COMMUNICATIONS 09/23/2024 6:09 AM VICE PRESIDENT CORPORATE COMMUNICATIONS us Jean Claude Matta Jr., MD LAB MICROBIOLOGY - GENE RAL ORDERABLES Final Result ROSALBA [address] [facility] Department of Laboratories [place], [place] [id number] * eGFR (09/23/2024 5:06 AM VICE PRESIDENT CORPORATE COMMUNICATIONS) eGFR 81 >=60 mL/min/1. 73 m2 Comment: [...] was last reviewed 2021. Testing performed by: [address] [address] Blood 09/23/2024 5:06 AM VICE PRESIDENT CORPORATE COMMUNICATIONS 09/23/2024 5:10 AM VICE PRESIDENT CORPORATE COMMUNICATIONS us Jean Claude Matta Jr., MD LAB BLOOD ORDERABLES Fi nal Result [place] [address] [facility] [place] [address] * (ABNORMAL) Differential, auto (09/23/2024 5:06 AM VICE PRESIDENT CORPORATE COMMUNICATIONS) Neutrophil abs 6.8(H) 1.5 - 6.5 K/cumm Comment:Testing performed by : [address] [address] Imm gran abs 0.1 0.0 - 0.1 K/cumm ROSALBA Comment:Testing performed by : [address] [address] Lymphocyte abs 0.8 0.8 - 3.3 K/cumm ROSALBA Comment:Testing performed by : [address] [address] Monocyte abs 0.6 0.2 - 0.8 K/cumm ROSALBA Comment:Testing performed by : [address] [address] Eosinophil abs 0.0 0.0 - 0.5 K/cumm ROSALBA Comment:Testing performed by : [address] [address] Basophil abs 0.0 0.0 - 0.1 K/cumm ROSALBA Comment:Testing performed by : [address] [address] Neutrophil pct 81.8 % ROSALBA Comment: Interpretive Data Percent cell count reference ranges are not reported, since discordance with absolute values may lead to misinterpretation of CBC data. Current Interpretive Data was last revised on 2017. Testing performed by: [address] [address] Imm gran pct 0.7 % ROSALBA Comment: Interpretive Data Percent cell count reference ranges are not reported, since discordance with absolute values may lead to misinterpretation of CBC data. Current Interpretive Data was last revised on 2017. Testing performed by: [address] [address] Lymphocyte pct 9.3 % [facility] Comment: Interpretive Data Percent cell count reference ranges are not reported, since discordance with absolute values may lead to misinterpretation of CBC data. Current Interpretive Data was last revised on 2017. Testing performed by: [address] [address] Monocyte pct 7.7 % [facility] Comment: Interpretive Data Percent cell count reference ranges are not reported, since discordance with absolute values may lead to misinterpretation of CBC data. Current Interpretive Data was last revised on 2017. Testing performed by: [address] [address] Eosinophil pct 0.5 % [facility] Comment: Interpretive Data Percent cell count reference ranges are not reported, since discordance with absolute values may lead to misinterpretation of CBC data. Current Interpretive Data was last revised on 2017. Testing performed by: [address] [address] Basophil pct 0.0 % [facility] Comment: Interpretive Data Percent cell count reference ranges are not reported, since discordance with absolute values may lead to misinterpretation of CBC data. Current Interpretive Data was last revised on 2017. Testing performed by: [address] [address] Blood 09/23/2024 5:06 AM VICE PRESIDENT CORPORATE COMMUNICATIONS 09/23/2024 5:10 AM VICE PRESIDENT CORPORATE COMMUNICATIONS us Jean Claude Matta Jr., MD LAB BLOOD ORDERABLES Fi nal Result ROSALBA [address] [facility] Department [place] [address] * (ABNORMAL) CBC with auto differential (09/23/2024 5:06 AM VICE PRESIDENT CORPORATE COMMUNICATIONS) WBC 8.3 3.8 - 9.9 K/cumm Comment:Testing performed by : [address] [address] Hgb 12.5 11.9 - 15.5 g/dL ROSALBA Comment:Testing performed by : [address], [address] Hct 41.7 35.6 - 45.5 % ROSALBA Comment:Testing performed by : [address] [address]23 Plt 207 150 - 400 K/cumm ROSALBA Comment:Testing performed by : [address] [address] MPV 11.7 9.1 - 12.3 fL ROSALBA Comment:Testing performed by : [address] [address] RBC 5.66(H) 3.90 - 5.20 M/cumm ROSALBA Comment:Testing performed by : [address] [address] MCV 73.7(L) 81.3 - 96.4 fL ROSALBA Comment:Testing performed by : [address] [address] MCH 22.1(L) 27.1 - 33.3 pg ROSALBA HOLT Comment:Testing performed by : [address] [address] MCHC 30.0(L) 32.3 - 35.7 g/dL ROSALBA Comment:Testing performed by : [address] [address] RDW CV 18.3(H) 11.1 - 14.9 % ROSALBA HOLT Comment:Testing performed by : [address] [address] RDW SD 45.1 35.7 - 48.1 fL ROSALBA HOLT Comment:Testing performed by : [address] [address] NRBC abs 0.00 0.00 - 0.01 K/cumm ROSALBA HOLT Comment:Testing performed by : [address] [address] Blood 09/23/2024 5:06 AM VICE PRESIDENT CORPORATE COMMUNICATIONS 09/23/2024 5:10 AM VICE PRESIDENT CORPORATE COMMUNICATIONS us Jean Claude Matta Jr., MD LAB BLOOD ORDERABLES Fi nal Result ROSALBA [facility] [place] [address] * (ABNORMAL) Comprehensive metabolic panel (09/23/2024 5:06 AM VICE PRESIDENT CORPORATE COMMUNICATIONS) Sodium 139 135 - 145 mmol/L Comment:Testing performed by : [address] [address] Potassium, pl 3.4 3.3 - 4.9 mmol/L ROSALBA HOLT Comment:Testing performed by : [address] [address] Chloride 103 97 - 110 mmol/L ROSALBA HOLT Comment:Testing performed by : [address] [address] CO2 24 22 - 32 mmol/L ROSALAB HOLT Comment:Testing performed by : [address] [address] Anion gap 12 2 - 15 mmol/L ROSALBA HOLT Comment:Testing performed by : [address] [address] BUN 26(H) 6 - 25 mg/dL ROSALBA HOLT Comment:Testing performed by : [address] [address] Creatinine 0.80 0.60 - 1.10 mg/dL ROSALBA HOLT Comment:Testing performed by : [address] [address] Glucose 77 70 - 199 mg/dL ROSALBA [...] was last revised 2022. Testing performed by: [address] [address] Calcium 9.5 8.5 - 10.3 mg/dL ROSALBA Comment:Testing performed by : [address] [address] Bilirubin, total 0.5 0.1 - 1.2 mg/dL ROSALBA Comment:Testing performed by : [address] [address] Protein, pl 7.0 6.5 - 8.5 g/dL ROSALBA Comment:Testing performed by : [address] [address] Albumin 3.7 3.5 - 5.0 g/dL ROSALBA Comment:Testing performed by : [address] [address] Alk phos 82 40 - 130 Units/L ROSALBA Comment:Testing performed by : [address] [address] ALT 11 7 - 45 Units/L ROSALBA Comment:Testing performed by : [address] [address] AST 11 10 - 45 Units/L ROSALBA Comment:Testing performed by : [address] [address] Blood 09/23/2024 5:06 AM VICE PRESIDENT CORPORATE COMMUNICATIONS 09/23/2024 5:10 AM VICE PRESIDENT CORPORATE COMMUNICATIONS us Jean Claude Matta Jr., MD LAB BLOOD ORDERABLES Fi nal Result Performing Organization Address [facility] [[email or web address]] Co de Phone Number ROSALBA [facility] [employer] [place] [address] * POCT glucose (09/23/2024 5:04 AM VICE PRESIDENT CORPORATE COMMUNICATIONS) Glucose, POC 71 70 - 199 mg/dL Comment:Testing performed by : [address] [address] Glucose comment 1 Use This Result ROSALBA Comment:Testing performed by : [address] [address] Glucose comment 2 RN/MD Notified ROSALBA Comment:Testing performed by : [address] [address] Blood 09/23/2024 5:04 AM VICE PRESIDENT CORPORATE COMMUNICATIONS 09/23/2024 5:04 AM VICE PRESIDENT CORPORATE COMMUNICATIONS Notinfile Unknown LAB POCT ORDERABLES - DEVICE F inal Result Performing Organization Address [facility] [[email or web address]] Co de Phone Number ROSALBA [facility] [employer] [place] [address] * Diagnostic Mammogram Bilateral W Sukumar (04/09/2024 [...] Gen Anderson M.D. RL: REBECCA Report ID: [id number] Reading Location: [facility] us Haleigh Young MD IMG MAMMO PROCEDURE S Final Result * COLONOSCOPY (10/28/2023 3:01 PM VICE PRESIDENT CORPORATE COMMUNICATIONS) Anatomical Region Laterality Modality Other Narrative Procedure Note Jammie Burdick MD - 10/28/2023 3:01 PM CST [facility] GI ENDOSCOPY Patient Name: Dipti Luna Procedure Date: 10/28/2023 3:01 PM Date of : 1960 Admit Type: Outpatient Age: 63 Gender: Female Attending MD: Jammie Burdick M.D. Room: [facility] ENDOSCOPY ROOM 06 Note Status: Finalized Procedure: [...] The scope was passed under direct vision.The PCF-[id number] colonoscope was introduced through theanus and advanced [...] On: 10/28/2023 3:01 PM Recognized by the [employer] for promoting quality in endoscopy Jammie Burdick MD ENDOSCOPY PROCEDURES Tash asencio Result * Hepatitis C antibody Blood (08/09/2023 1:28 PM VICE PRESIDENT CORPORATE COMMUNICATIONS) Hep C Ab Nonreactive Nonreactive ROSALBA Comment: [...] revised on 2019. Blood 08/09/2023 1:28 PM VICE PRESIDENT CORPORATE COMMUNICATIONS 08/09/2023 6:31 PM VICE PRESIDENT CORPORATE COMMUNICATIONS us Jammie Burdick MD LAB MICROBIOLOGY - [facility] L ORDERABLES Final Result [facility] [address] [facility] [place] [address] * DEXA Axial Skeleton Bone Density Multi Site (02/22/2023 10:45 AM CDT) Anatomical Region Laterality Modality Body N/A Mammography 02/22/2023 3:45 PM CDT Narrative 02/22/2023 3:45 PM CDT EXAM DESCRIPTION: DEXA AXIAL SKELETON BONE DENSITY 1 OR MORE SITES REASON FOR STUDY: 62 y/o year old F with given history of screening. 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 TW: TW Report ID: [id number] Reading Location: [place] [address] Procedure Note Elodia Recinos MD - 02/22/2023 EXAM DESCRIPTION: DEXA AXIAL SKELETON BONE DENSITY 1 OR MORE SITES REASON FOR STUDY: 62 y/o year old F with given history of screening. 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 TW: TW Report ID: [id number] Reading Location: [place] [address] Brenda Stewart NP IMG DXA PROCEDURES Final Result * Pap and High Risk HPV, reflex to Genotyping (12/22/2022 7:56 AM CDT) Thin prep (Pap test) 12/22/2022 7:56 AM CDT 12/23/2022 7:56 AM CDT Narrative PATHOLOGY [facility] - 12/28/2022 11:[address] [facility] Department of Pathology [address] [place] [address] Final Report with Addendum Note to Patients: [...] the details. Patient Name: DIPTI LUNA [address]: [address] [place] [address], [address] [place] [address] Gender: F : 1960 (Age: 62) Service: Location: [facility] #: [id number] Patient Type: [facility] SPECIMEN Taken: 12/22/2022 Received: 12/23/2022 Accessioned:: 12/24/2022 Reported: 12/28/2022 Physician(s): Nia Alfred M.D. [facility] Diagnosis: SOURCE OF SPECIMEN SCREENING THIN [...] determined by the Surgical Pathology Department at [facility] as part of an ongoing quality audit representative program and in compliance with federally mandated [...] determined by the Surgical Pathology Department [facility]. It has not been cleared or approved by the U. S. Food and Drug Administration. 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 Expl anation ADVANCE DIRECTIVE 02/01/2024 1:59 PM POLST - Phys Order for PT Preferences ADVANCE DIRECTIVE 01/30/2024 1:03 PM Power of Campus Administrator-Medical ADVANCE DIRECTIVE 06/02/2022 12:57 PM Jami r of Campus Administrator-Medical ADVANCE DIRECTIVE 06/02/2022 12:56 PM Yoon ng [...] 4:56 PM 05/31/2022 2:29 PM Care Teams Stiff Straw Hat Washer Relationship Specialty Start Date End Date Haleigh Young MD [address] [place] [address] PCP - General Family Medicine 11/24/21 Luis Saunders MD Referring Physician Gastroenterology 07/31/18 Jammie Burdick MD Referring Physician Gastroenterology 07/31/18 Ervin Garcia MD [address] [facility] [address] [address] Consulting Physician Pulmonary Disease 07/08/20 Jean Carlos Berrios MD [address] [facility] [place] [address] Referring Physician Obstetrics and Gynecology 02/23/22 Rosa Herr RN [address] [place] [address] DR ADAIR [address] [place] [address] Carbon Brusher Assembler 06/03/22 Braden Sherwood DO [address] [facility] [place] [address] Referring Physician Psychiatry 06/04/22 Ladonna Martinez, COLLIN [address] [facility] [place] [address] Nurse Practitioner Nurse Practitioner 10/31/23 Kamila Witt NP [address] [facility] [place] [address] Nurse Practitioner Hospice and Palliative Medicine 03/01/24
--- OUTSIDE RECORDS SUMMARY | 2024-11-26 11:01 | XMS_ITS | Patient Health Summary ---
Author Organization [facility] [employer] Address [address] [place] [address] Care Team Providers Care Certified Medical Coder Name Role Phone Maya Mcclain MD Primary Care Provider [phone] Note from [facility],non-owned Affiliates and Associated Physician Practices is amultiple site organization consisting of ambulatory clinics and hospital sitesin [place], [place], [place] and [place]. This disclosure is being madepursuant to the Care Everywhere program and may not contain all information available regarding this patient. Last updated 18.[facility] Allergies * Codeine(Anaphylaxis,Angioedema,Urticaria,Swelling,Unknown) -High Criticality Medications [...] mg by mouth 2 times daily * Llvmfqwjatc-Rsimsucid-Ouhslv (TRELEGY ELLIPTA) 100-62.5-25 MCG/INH Inhale 1 puff [...] 11/12/2012) Results * DERMATOPATHOLOGY (10/14/2023 3:33 AM STAKING ENGINEER) Case Report Dermatopathology Report Case: [id number] Authorizing Provider: Ketan Sheppard MD Collected: 10/14/2023 03:33 AM Ordering Location: [facility] DermPath Lab Received: 10/17/2023 02:24 PM Pathologist: Ruby Licona MD Specimen: Skin, left buttock 4:27 PM STAKING ENGINEER DERMATOPATHOLOGY LABORATORY Final Diagnosis Specimen A. SKIN, left buttock: EPIDERMAL NECROSIS SUGGESTIVE OF EXCORIATION (L98.499) (see microscopic description) 4 4:27 PM [facility] DERMATOPATH[facility]ORAT[facility] Clinical History Atopic dermatitis vs contact dermatitis other vs scabies 4 4:27 PM [facility] DERMAT[facility] Gross Description Specimen A: Received is one formalin filled container labeled with the patient's name and designated left buttock. The specimen consists of a punch biopsy measuring 4x4x4 mm, bisected. Jar 0. 4 4:27 PM [facility] DERMATOP[facility] Microscopic Description Specimen A. SKIN, left buttock: The epidermis is focally necrotic and covered with a scale-crust. There is fibrin at the base. Additional deeper sections were obtained and reviewed. Grocott's methenamine silver (GMS) stain is negative for fungal elements in the sections examined. 4:27 PM [facility] DERMAT[facility] Disclaimer An external and internal positive and negative controls are appropriate for the histochemical, immunohistochemical and immunofluorescence stain(s) in this case (if any), except where stated explicitly. The performance characteristics of the stain(s) cited in this report were developed and its performance characteristic determined by the Dermatopathology Laboratory at [facility], directed by Dr. Jaylan Cunningham. These tests need not be, and therefore are not, approved by the [place] Food and Drug Administration. The tests are used for clinical purposes. Billing Codes Specimen Charges Stain Charges 62504 1 25188 1 4 4:27 PM [facility] Embedded Images 4 4:27 PM [facility] Pathology/Cytolo gy TISSUE SPECIMEN FROM SKIN / Unknown 10/14/2023 3:33 AM STAKING ENGINEER 10/17/2023 2:24 PM STAKING ENGINEER Ketan Sheppard MD LAB - PATHOLOGY/CYTO LOGY ORDERABLES DERMATOPATHOLOGY LABORATORY [facility] - Department of Dermatology [address], [address] [phone] * CULTURE URINE COMPREHENSIVE (07/09/2014) Only the most recent of2 resultswithin the time period is included. Culture SEE NOTE [facility] ([facility]) Comment: CULTURE, URINE, SPECIAL MICRO NUMBER: [id number] TEST STATUS: FINAL SPECIMEN SOURCE: URINE SPECIMEN QUALITY: ADEQUATE RESULT: No Growth REPORT COMMENT: PREFERRED LAB:->[facility] Test Performed at: [facility] [address] SALMA CAMPBELL MD Urine specimen (specimen) 07/09/2014 07/10/2014 3:51 AM CDT Narrative [facility] ([facility]) - 07/12/2014 8:00 AM CDT Preferred Lab:->[facility] Victor Hugo Li MD LAB - MICROBIOLOGY O RDERABLES Performing Organization Address City/[facility]/ZIP Co de Phone Number [facility] ([facility]) * URINALYSIS - POINT OF CARE (AMB) [facility] (06/19/2014) Glucose UA neg [facility] Bilirubin UA POCT neg [facility] Ketones UA POCT neg [facility] Specific [place] UA 1.010 [facility] Blood Urine POCT neg [facility] pH UA 5.0 [facility] Protein UA neg [facility] Urobilinogen UA neg [facility] Nitrite UA neg [facility] WBC UA neg [facility] Urine specimen (specimen) 06/19/2014 Victor Hugo Li MD LAB - POINT OF CARE ORDERABLES Performing Organization Address [facility] Co de Phone Number [facility] * XR SHOULDER RIGHT 2VW OR MORE (11/12/2012 1:02 PM STAKING ENGINEER) Anatomical Region Laterality Modality Upper Extremity Other Impressions 11/12/2012 4:01 PM STAKING ENGINEER Impression: No radiographic evidence of bone or joint disease. This report has been dictated by Cornelius Grace M.D. (Resident). I, Dr. JACKIE MEDINA M.D. have personally reviewed and interpreted this examination/study. This report was electronically signed by JACKIE MEDINA M.D. on 11/12/2012 4:01 PM . Narrative 11/12/2012 4:01 PM STAKING ENGINEER Exam: Right shoulder, 3 views Date: 11/12/2012 [...] . Mahogany Gibson MD [facility] Care Teams Certified Medical Coder Relationship Specialty Start Date End Date Maya Mcclain MD [address] [place] [id number] PCP - General 10/31/20
--- OUTSIDE RECORDS SUMMARY | 2024-11-26 11:02 | XMS_ITS ---
Author Organization [facility] Address [address] [place] [address] Care Team Providers Care Ramp Service Employee Name Role Phone Diane Burgess Primary Care Provider Encounters Encounter Location Date Provider Diagnosis [address] [place] [address] 11/09/2024 Diane Burgess Plan Of Treatment No Information Progress Notes * Dipti LUNADOB:1960 (64 yo F)Acc No.[id number]:11/09/2024 Patient: Dipti GLEZ :1960 A ge:64 Y S ex:Female Address:[address] [place], [address] * true * Date: Generated for Printi ng/Fasethg/eTransmitting on: 0 11/26/2024 11:01 AM CDT
--- OUTSIDE RECORDS SUMMARY | 2024-11-26 11:02 | XMS_ITS | Patient Health Record ---
Author Organization [facility] Address [address] [place] [address] Care Team Providers Care Product Development Engineer Name Role Phone Diane Burgess Primary Care Provider Nuvia Ireland [phone] Allergies Allergen (clinical drug ingredient) Drug/Non Drug [...] Status Risk Notes Problem Generalized anxiety disorder (30712796) RUSS (generalized anxiety disorder) (F41.1) 025 Active confirmed consideration to separate panic disorder Problem Insomnia due to mental disorder (05808134) Insomnia due to mental disorder (F51.05) 025 Active confirmed Problem Major depressive disorder (151478138) MDD (major depressive disorder) (F32.9) 025 Active confirmed Problem Nondependent cocaine abuse in remission (033686494) Cocaine use disorder, mild, in sustained remission (F14.11) 025 Active confirmed last use age 46 Encounters Encounter Location Date Provider Diagnosis [address] [address] 11/08/2024 Diane Burgess MDD (major depressive disorder) F32.9 ; RUSS (generalized anxiety disorder) F41.1 ; Insomnia due to mental disorder F51.05 and Cocaine use disorder, mild, in sustained remission F14.11 [place] [address] [place] [address] 11/09/2024 Diane Burgess RUSS (generalized anxiety disorder) F41.1 [place] [place] [address] 11/09/2024 Nuvia Ireland [address] [place] [address] 11/09/2024 Diane Burgess Assessments Encounter Date Diagnosis [...] evaluation over Zoom and is located in [place], caregiver present in room. PHQ-9 score of [...] or be administered own oral medications per [place] protocols. Provided informed consent with understanding of [...] End Date MEDICAID [address] [place] [phone] [id number] Dipti Luna Self - patient is the insured 5 [employer] [address] [place] [address] [id number] Dipti Luna Self - patient is the insured Medical (General) History Medical History History ICD Code COPD Lupus Chronic pain Diverticulitis Surgical History Surgery Date(Month/Year) tubal ligation oopherectomy tonsillectomy hysterecomy Hospitalization History Reason Date(Month/Year) [facility] 5x for psych iatric inpatient for anxiety one time I had a nervous break down , last time in her 30s Psychiatric inpatient at [facility] for aggravation/HI, was there for a week age 46 Multiple for medical
--- NOTE | 2024-11-26 14:32 | ECG_ITS ---
Test Date: 2024-11-26 15:40:03 Measurements Intervals [place] Rate: 81 P: 33 [place]: 180 QRS: 6 QRSD: 81 T: 42 QT: 356 QTc: 414 Interpretive Statements SINUS RHYTHM No previous ECG available for comparison Electronically Signed On 11-27-2024 16:41:13 CDT by Mina Real M.D.
--- NOTE | 2024-11-26 14:34 | ED.WEAKNESS ---
HPI - Weakness General Chief complaint: Weakness <Dee Taylor APRN - Last Filed: 11/26/24 14:38> Stated complaint: sob <Dee Taylor APRN - Last Filed: 11/26/24 14:38> Time Seen by Provider: 11/26/24 14:52 <Dee Taylor APRN - Last Filed: 11/26/24 14:38> Focused HPI: Patient is a 64-year-old female who presents to the ER with complaints shortness of breath and lower extremity pain. She reports she has had extensive discussions with her nipping machine operator and primary care provider who have advised her to go on hospice. Patient reports she has come to terms with this and is ready to proceed. She endorses a significant history of COPD and fibromyalgia. Patient denies any current chest pain, recent fevers, altered mental status, or urinary symptoms. GENERAL: Well-appearing, well-nourished, and in mild distress d/t dyspnea. HEAD: Normocephalic, atraumatic. CHEST: Crackles upon auscultation. ?Mild respiratory distress. HEART: Regular rate and rhythm.? NEURO: ?Alert and oriented x3. Patient screened in triage and initial orders placed.? ?Additional care and disposition to be based upon?diagnostic testing and treatment. <Dee Taylor APRN - Last Filed: 11/26/24 14:38> History of Present Illness HPI Narrative: Agree with HPI. Reports she has been wearing 4 L nasal cannula. She reports she gets short of breath when she walks but no chest pain. No cough. She has not been him wheezing. She has been in touch with any hospice but they cannot come out for several weeks. <Kobe Guillen MD - Last Filed: 11/26/24 18:22> Related Data Home medications: Home Medications ?Medication ?Instructions ?Recorded ?Confirmed ?Last Taken ?Type albuterol sulfate 2.5 mg/3 mL 2.5 mg QID 07/04/23 01/28/24 1 Day Ago History (0.083 %) solution for nebulization ~07/03/23 albuterol sulfate 90 mcg/actuation 2 puff inhalation Q6H PRN Wheezing 07/04/23 01/28/24 Unknown History aerosol inhaler alprazolam 1 mg tablet 1 mg PO TID 07/04/23 01/28/24 1 Day Ago History ~07/03/23 atorvastatin 10 mg tablet 10 mg PO QHS 07/04/23 01/28/24 1 Day Ago History ~07/03/23 diclofenac sodium 75 mg 75 mg PO BID 07/04/23 01/28/24 1 Day Ago History tablet,delayed release ~07/03/23 dicyclomine 20 mg tablet 20 mg PO BID 07/04/23 01/28/24 1 Day Ago History ~07/03/23 esomeprazole magnesium 40 mg 40 mg PO BID 07/04/23 01/28/24 1 Day Ago History capsule,delayed release ~07/03/23 fluticasone fur. 200 mcg-umeclid 1 inh inhalation DAILY 07/04/23 01/28/24 1 Day Ago History 62.5 mcg-vilant 25 mcg ~07/03/23 inhalat.powder (Trelegy Ellipta) hydroxyzine HCl 25 mg tablet 25 mg PO DAILY PRN Anxiety 07/04/23 01/28/24 Unknown History metoclopramide HCl 10 mg tablet 10 mg PO QID 07/04/23 01/28/24 1 Day Ago History ~07/03/23 ondansetron HCl 4 mg tablet 4 mg PO Q6H 07/04/23 01/28/24 1 Day Ago History ~07/03/23 tizanidine 2 mg tablet 2 mg PO QID 07/04/23 01/28/24 1 Day Ago History ~07/03/23 valacyclovir 500 mg tablet 500 mg PO DAILY 07/04/23 01/28/24 1 Day Ago History ~07/03/23 venlafaxine 150 mg 300 mg PO DAILY 07/04/23 01/28/24 1 Day Ago History capsule,extended release 24 hr ~07/03/23 <Dee Taylor APRN - Last Filed: 11/26/24 14:38> Allergies/Adverse reactions: Allergies Allergy/AdvReac Type Severity Reaction Status Date / Time codeine Allergy Severe Swelling Verified 11/26/24 17:57 of Lip/Tongue/Throat <Dee Taylor APRN - Last Filed: 11/26/24 14:38> Review of Systems Review of Systems: All systems reviewed & are unremarkable except as noted in HPI and below <Kobe Guillen MD - Last Filed: 11/26/24 18:22> Constitutional: Constitutional: Reports no additional constitutional complaints <Kobe Guillen MD - Last Filed: 11/26/24 18:22> Cardiovascular: Cardiovascular: Reports no additional cardiovascular complaints <Kobe Guillen MD - Last Filed: 11/26/24 18:22> Respiratory: Respiratory: Reports no additional respiratory complaints <Kobe Guillen MD - Last Filed: 11/26/24 18:22> Gastrointestinal: Gastrointestinal: Reports no additional gastrointestinal complaints <Kobe Guillen MD - Last Filed: 11/26/24 18:22> PMFSH Past Medical History Medical History: Medical History Acute on chronic respiratory failure with hypoxia COPD exacerbation <Dee Taylor APRN - Last Filed: 11/26/24 14:38> Social History Social History: Social History Smoking status: Former smoker Alcohol intake: never Substance use: never Lack of Transportation: YES Lack of Food: Often True Current Housing: I Have Housing Concerned About Future Housing: No Difficulty Paying Gas/Electric Bills: No Difficulty Paying for Meds: No Currently Unemployed: No Education: High School Diploma/GED Difficulty w/ Childcare or Family Care: No Spiritual care concerns: No <Dee Taylor APRN - Last Filed: 11/26/24 14:38> Exam Narrative: GENERAL: Chronically ill-appearing, well-nourished, and in no acute distress. HEAD: Normocephalic, atraumatic. ENT: Nares clear, no rhinorrhea or epistaxis. Mucous membranes moist. CHEST: Clear to auscultation. No respiratory distress. HEART: Regular rate and rhythm. Normal peripheral pulses. ABDOMEN: Soft, nontender, nondistended. EXTREMITIES: Normal range of motion. No edema. SKIN: Warm, dry, no rash. NEURO: Alert and oriented x3. PSYCH: Normal mood and affect. <Kobe Guillen MD - Last Filed: 11/26/24 18:22> Course Course Emergency Course: Unremarkable evaluation patient. X-ray without acute findings. Labs within normal limits. No hypoxia no wheezing. Patient was given a breathing treatment. Care coordination has seen the patient. She does have numbers for palliative care and hospice care. One palliative care that she spoke to is not willing to let her have narcotics at home due to the previous issues with [facility] hospice where she accused a care provider of stealing her medications. They feel she has drug-seeking behavior. Patient stable for discharge and can arrange hospice and/or palliative care. <Kobe Guillen MD - Last Filed: 11/26/24 18:22> Vital Signs Vital signs: Vital Signs Temperature 97.6 F 11/26/24 09:57 Pulse Rate 94 11/26/24 09:57 Respiratory Rate 26 H 11/26/24 09:57 Blood Pressure 136/95 H 11/26/24 09:57 Pulse Oximetry 95 11/26/24 09:57 Oxygen Delivery Nasal Cannula 11/26/24 09:57 Oxygen Flow Rate 2 11/26/24 09:57 Temperature 98.1 F 11/26/24 12:20 Pulse Rate 90 11/26/24 16:10 Respiratory Rate 22 H 11/26/24 16:10 Blood Pressure 122/71 11/26/24 12:20 Pulse Oximetry 98 11/26/24 15:40 Oxygen Delivery Nasal Cannula 11/26/24 15:40 Oxygen Flow Rate 4 11/26/24 15:40 Fraction of Inspired Oxygen 36 11/26/24 15:40 <Dee Taylor, ALMA ROSA - Last Filed: 11/26/24 14:38> Vital Signs Temperature 97.6 F 11/26/24 09:57 Pulse Rate 94 11/26/24 09:57 Respiratory Rate 26 H 11/26/24 09:57 Blood Pressure 136/95 H 11/26/24 09:57 Pulse Oximetry 95 11/26/24 09:57 Oxygen Delivery Nasal Cannula 11/26/24 09:57 Oxygen Flow Rate 2 11/26/24 09:57 Temperature 98.1 F 11/26/24 12:20 Pulse Rate 90 11/26/24 16:10 Respiratory Rate 22 H 11/26/24 16:10 Blood Pressure 122/71 11/26/24 12:20 Pulse Oximetry 98 11/26/24 15:40 Oxygen Delivery Nasal Cannula 11/26/24 15:40 Oxygen Flow Rate 4 11/26/24 15:40 Fraction of Inspired Oxygen 36 11/26/24 15:40 <Kobe Guillen MD - Last Filed: 11/26/24 18:22> MDM - Weakness Lab Data Result diagrams: 11/26/24 14:57 11/26/24 14:57 <Dee Taylor APRN - Last Filed: 11/26/24 14:38> Labs: Lab Results 11/26/24 Range/Units 14:57 WBC 7.1 (4.5-10.0) K/mm3 RBC 5.41 H (4.2-5.4) M/mm3 Hgb 12.3 (12.0-15.0) g/dL Hct 42.2 (37.0-47.0) % MCV 78.0 L (80-100) fl MCH 22.7 L (26-34) pg MCHC 29.1 L (32-36) g/dl RDW 19.6 H (11.5-14.5) % Plt Count 291 (150-375) k/mm3 MPV 10.0 (7.4-10.4) fl Immature Gran % (Auto) 0.4 (0-0.5) % Neut % (Auto) 60.2 (45.5-73.1) % Lymph % (Auto) 26.6 (18.3-44.2) % Haskell % (Auto) 6.8 (2.6-8.5) % Eos % (Auto) 5.6 H (0-4.4) % Baso % (Auto) 0.4 (0.2-1.2) % Lymph # (Auto) 1.88 (0.9-3.2) K/mm3 Haskell # (Auto) 0.5 (0.1-0.6) K/mm3 Eos # (Auto) 0.4 H (0-0.3) K/mm3 Baso # (Auto) 0.0 (0.0-0.1) K/mm3 Abs Immat Gran (auto) 0.03 (0.00-0.031) K/mm3 Absolute Neuts (auto) 4.3 (1.3-6.7) K/mm3 Absolute Nucleated RBC 0.000 (0.0-0.012) K/mm3 Band Neutrophils % 0 (0-6) % Nucleated RBC % 0.0 (0.0-0.2) % Platelet Estimate Adequate (Adequate) Hypochromasia 1+ Anisocytosis 3+ Schistocytes None seen PT 12.8 (11.1-14.7) Seconds INR 0.9 APTT 25.0 (22.3-36.8) Seconds Sodium 140 (137-145) mmol/L Potassium 3.5 (3.4-5.0) mmol/L Chloride 107 (98-107) mmol/L Carbon Dioxide 19 L (22-30) mmol/L Anion Gap 14 H (4-12) mmol/L BUN 24 H (7-17) mg/dL Creatinine 0.69 L (0.7-1.0) mg/dL Estim Creat Clear Calc 70 ml/min Estimated GFR > 60 (59 - ) Glucose 89 (65-110) mg/dL Calcium 9.8 (8.4-10.2) mg/dL Magnesium 1.8 (1.6-2.3) mg/dL Total Bilirubin 0.4 (0.2-1.3) mg/dL AST 24 (14-36) U/L ALT 36 H (6-35) U/L Alkaline Phosphatase 111 (38-126) U/L Troponin I < 0.012 (0.000-0.034) ng/mL Total Protein 8.0 (6.3-8.2) g/dL Albumin 4.6 (3.5-5.1) g/dL <Dee Taylor, [employer] - Last Filed: 11/26/24 14:38> Lab Results 11/26/24 Range/Units 14:57 WBC 7.1 (4.5-10.0) K/mm3 RBC 5.41 H (4.2-5.4) M/mm3 Hgb 12.3 (12.0-15.0) g/dL Hct 42.2 (37.0-47.0) % MCV 78.0 L (80-100) fl MCH 22.7 L (26-34) pg MCHC 29.1 L (32-36) g/dl RDW 19.6 H (11.5-14.5) % Plt Count 291 (150-375) k/mm3 MPV 10.0 (7.4-10.4) fl Immature Gran % (Auto) 0.4 (0-0.5) % Neut % (Auto) 60.2 (45.5-73.1) % Lymph % (Auto) 26.6 (18.3-44.2) % Haskell % (Auto) 6.8 (2.6-8.5) % Eos % (Auto) 5.6 H (0-4.4) % Baso % (Auto) 0.4 (0.2-1.2) % Lymph # (Auto) 1.88 (0.9-3.2) K/mm3 Haskell # (Auto) 0.5 (0.1-0.6) K/mm3 Eos # (Auto) 0.4 H (0-0.3) K/mm3 Baso # (Auto) 0.0 (0.0-0.1) K/mm3 Abs Immat Gran (auto) 0.03 (0.00-0.031) K/mm3 Absolute Neuts (auto) 4.3 (1.3-6.7) K/mm3 Absolute Nucleated RBC 0.000 (0.0-0.012) K/mm3 Band Neutrophils % 0 (0-6) % Nucleated RBC % 0.0 (0.0-0.2) % Platelet Estimate Adequate (Adequate) Hypochromasia 1+ Anisocytosis 3+ Schistocytes None seen PT 12.8 (11.1-14.7) Seconds INR 0.9 APTT 25.0 (22.3-36.8) Seconds Sodium 140 (137-145) mmol/L Potassium 3.5 (3.4-5.0) mmol/L Chloride 107 (98-107) mmol/L Carbon Dioxide 19 L (22-30) mmol/L Anion Gap 14 H (4-12) mmol/L BUN 24 H (7-17) mg/dL Creatinine 0.69 L (0.7-1.0) mg/dL Estim Creat Clear Calc 70 ml/min Estimated GFR > 60 (59 - ) Glucose 89 (65-110) mg/dL Calcium 9.8 (8.4-10.2) mg/dL Magnesium 1.8 (1.6-2.3) mg/dL Total Bilirubin 0.4 (0.2-1.3) mg/dL AST 24 (14-36) U/L ALT 36 H (6-35) U/L Alkaline Phosphatase 111 (38-126) U/L Troponin I < 0.012 (0.000-0.034) ng/mL Total Protein 8.0 (6.3-8.2) g/dL Albumin 4.6 (3.5-5.1) g/dL <Kobe Guillen MD - Last Filed: 11/26/24 18:22> Imaging Data Radiologist's impression: ITS Impressions Chest X-Ray 11/26/24 15:30 Impression: 1: No acute cardiopulmonary disease. Stable chronic bilateral interstitial infiltrates and upper lobe scarring. <Kobe Guillen MD - Last Filed: 11/26/24 18:22> ECG Data EKG #1: ECG completion date: 11/26/24 <Kobe Guillen MD - Last Filed: 11/26/24 18:22> ECG completion time: 15:40 <Kobe Guillen MD - Last Filed: 11/26/24 18:22> EKG Interpretation: normal rate (81), sinus rhythm, non-specific ST changes, normal QRS, normal QT and NL axis <Kobe Guillen MD - Last Filed: 11/26/24 18:22> Discharge Plan Discharge Clinical Impression: COPD (chronic obstructive pulmonary disease) <Dee Taylor APRN - Last Filed: 11/26/24 14:38> Patient Disposition: Home, Self-Care <Dee Taylor APRN - Last Filed: 11/26/24 14:38> Condition: Stable <Dee Taylor APRN - Last Filed: 11/26/24 14:38> Instructions: COPD (Chronic Obstructive Pulmonary Disease) (ED) <Dee Taylor APRN - Last Filed: 11/26/24 14:38> Additional Instructions: Please return to the emergency department if you develop severe and persistent chest pain, difficulty breathing, dizziness, leg swelling or if you are coughing up blood as these can be signs of a medical emergency. Please call your doctor for a follow up appointment to determine the need for further testing. <Dee Taylor APRN - Last Filed: 11/26/24 14:38> Patient Language: Kenyan <Dee Taylor APRN - Last Filed: 11/26/24 14:38> Prescriptions: No Action tizanidine 2 mg tablet 2 mg PO QID albuterol sulfate 2.5 mg /3 mL (0.083 %) solution for nebulization 2.5 mg QID atorvastatin 10 mg tablet 10 mg PO QHS alprazolam 1 mg tablet 1 mg PO TID ondansetron HCl 4 mg tablet 4 mg PO Q6H venlafaxine 150 mg capsule,extended release 24hr 300 mg PO DAILY valacyclovir 500 mg tablet 500 mg PO DAILY dicyclomine 20 mg tablet 20 mg PO BID esomeprazole magnesium 40 mg capsule,delayed release(DR/EC) 40 mg PO BID diclofenac sodium 75 mg tablet,delayed release (DR/EC) 75 mg PO BID hydroxyzine HCl 25 mg tablet 25 mg PO DAILY PRN (Reason: Anxiety) albuterol sulfate 90 mcg/actuation HFA aerosol inhaler 2 puff INHALATION Q6H PRN (Reason: Wheezing) metoclopramide HCl 10 mg tablet 10 mg PO QID Trelegy Ellipta 200-62.5-25 mcg blister with device 1 inh INHALATION DAILY <Dee Taylor APRN - Last Filed: 11/26/24 14:38> Follow-up/Referrals: Hector,MD Haleigh [Primary Care Provider] - 1 Week <Dee Taylor APRN - Last Filed: 11/26/24 14:38>
[2024-11-26 15:05] LABS: Basophils Percent Auto 0.4 % (0.2-1.2); Eosinophils Absolute Auto 0.4 K/mm3 (0-0.3); Eosinophils Percent Auto 5.6 % (0-4.4); Hematocrit 42.2 % (37.0-47.0); Hemoglobin 12.3 g/dL (12.0-15.0); Immature Granulocyte Absolute 0.03 K/mm3 (0.00-0.031); Immature Granulocyte Percent A 0.4 % (0-0.5); Lymphocytes Absolute Auto 1.88 K/mm3 (0.9-3.2); Lymphocytes Percent Auto 26.6 % (18.3-44.2); Mean Corpuscular HGB Conc 29.1 g/dl (32-36); Mean Corpuscular Hemoglobin 22.7 pg (26-34); Monocytes Absolute Auto 0.5 K/mm3 (0.1-0.6); Monocytes Percent Auto 6.8 % (2.6-8.5); Neutrophils Absolute Auto 4.3 K/mm3 (1.3-6.7); Neutrophils Percent Auto 60.2 % (45.5-73.1); Platelet Count Result 291 k/mm3 (150-375); Red Blood Count 5.41 M/mm3 (4.2-5.4); Red Cell Distribution Width 19.6 % (11.5-14.5); White Blood Count 7.1 K/mm3 (4.5-10.0)
[2024-11-26 15:16] LABS: Alanine Aminotransferase 36 U/L (6-35); Albumin Level 4.6 g/dL (3.5-5.1); Alkaline Phosphatase 111 U/L (38-126); Anion Gap 14 mmol/L (4-12); Aspartate Amino Transferase 24 U/L (14-36); Bilirubin,Total 0.4 mg/dL (0.2-1.3); Blood Urea Nitrogen 24 mg/dL (7-17); Calcium 9.8 mg/dL (8.4-10.2); Carbon Dioxide 19 mmol/L (22-30); Chloride 107 mmol/L (98-107); Estimated CRCL calculation 70 ml/min; Estimated Glomerular Filt Rate > 60; Glucose 89 mg/dL (65-110); Magnesium 1.8 mg/dL (1.6-2.3); Potassium 3.5 mmol/L (3.4-5.0); Sodium 140 mmol/L (137-145)
[2024-11-26 15:20] LABS: INR 0.9; Prothrombin Time 12.8 Seconds (11.1-14.7)
[2024-11-26 15:24] LABS: Platelet Estimate Adequate (Adequate); Schistocytes None Seen
[2024-11-26 15:25] LABS: Anisocytosis 3+; Hypochromasia 1+
[2024-11-26 15:27] LABS: Band Neutrophils Percent 0 % (0-6)
[2024-11-26 15:28] LABS: Troponin I < 0.012 ng/mL (0.000-0.034)
[2024-11-26] MEDS: ALPRAZolam (*CRX) 0.5 MG TABLET 1 MG PO (15:35)
[2024-11-26] MEDS: IPRATROPIUM 0.5 MG/ALBUTEROL SULFATE 2.5 MG AMPUL.NEB 3 ML INHALATION ×4 (15:40→15:47)
--- NOTE | 2024-11-26 16:32 | PCCCNOTE ---
Called to the ED to talk to pt about palliative and hospice care. Pt expressed to the ED that she wanted hospice, but to me she wanted palliative care. She said she has been talking to [facility] regarding palliative care, but it was going to be 4-5 weeks before they could start seeing her. I called and spoke with Cristal with [facility], she said they could see her for palliative care, but would be unable to prescribe her pain or anxiety medications due to pt being let go by [facility] for drug seeking. Therefore they can not provide this for her. I told her this information and I gave her the list of hospice/palliative care companies so she could try one of the other ones if she wanted to. Pt is being discharged. She did not have any further questions for me at this time.
--- OUTSIDE RECORDS SUMMARY | 2024-11-26 17:14 | XMS_ITS | Referral Summary ---
Author Organization [facility] Address [address] [place] [address] Care Team Providers Care Neurology Epilepsy Physician Name Role Phone Luis Saunders MD Unavailable [phone] Jammie Burdick MD Unavailable [phone] Ervin Garcia MD Unavailable [phone] Haleigh Young MD Primary Care Provi naye Jean Carlos Berrios MD Unavailable Rosa Herr RN Unavailable Braden Sherwood DO Unavailable [phone] Ladonna Martinez HOME CARE NURSE Unavailable [phone] Kamila Witt HOME CARE NURSE Unavailable [phone] Encounters Date Type Department Care Team Description 11/26/2024 Nurse Triage [facility] Family Medicine [address] [place] [phone] Haleigh Young MD 11/23/2024 Nurse Triage [facility] Family Medicine [address] [place] [phone] Haleigh Young MD 11/23/2024 Telephone [facility] Pulmonology [facility] [address] [place] [phone] Syl Jaimes, MIRTA 11/19/2024 Orders Only [address] [phone] Haleigh Young MD Chronic respiratory failure with hypoxia (HCC) (Primary Dx) 11/14/[address] [phone] Haleigh Young MD Medical Question/Miscellaneo us 11/09/[address] [phone] Haleigh Young MD Medical Question/Miscellaneo us 10/29/2024 Orders Only [address] [phone] Haleigh Young MD Chronic respiratory failure with hypoxia (HCC) (Primary Dx) 10/29/[address] [phone] Haleigh Young MD 10/29/2024 1:30 PM ADVERTISING PRODUCTION MANAGER Office Visit [address] [phone] Heather Arteaga PA Acute bilateral lower abdominal pain (Primary Dx); Chronic bullous emphysema (CMS/HCC) (HCC); Chronic respiratory failure with hypoxia (HCC); Class 1 obesity due to excess calories with serious comorbidity and body mass index (BMI) of 30.0 to 30.9 in adult 10/24/2024 10:55 AM ADVERTISING PRODUCTION MANAGER Lab [facility] Medical Office Building [address] [place] [address] Hyperglycemia; Iron deficiency anemia due to chronic blood loss 10/24/2024 10:30 AM ADVERTISING PRODUCTION MANAGER Office Visit [facility] Pulmonary [address] [place] [phone] Ervin Garcia MD Chronic obstructive pulmonary disease, unspecified COPD type (HCC) (Primary Dx); PEREZ (dyspnea on exertion); Chronic respiratory failure with hypoxia (HCC) 10/17/2024 10:45 AM ADVERTISING PRODUCTION MANAGER Office Visit [address] [phone] Haleigh Young MD Narcotic dependence (HCC) (Primary Dx); Benzodiazepine dependence (HCC); Generalized anxiety disorder; Iron deficiency anemia due to chronic blood loss; Hyperglycemia; Class 1 obesity due to excess calories with serious comorbidity and body mass index (BMI) of 32.0 to 32.9 in adult 10/16/2024 [facility] Outreach [address] [address] Sally Castañeda MA 10/15/2024 Nurse Triage [address] [phone] Haleigh Young MD 10/12/2024 Orders Only [address] [phone] Heather Arteaga PA 10/12/2024 [facility] ED Outreach [address] [address] Sally Castañeda MA 10/11/2024 Telephone [facility] [address] [place] [address] [place] [phone] Kamila Witt NP 10/11/2024 Orders Only Hospitalists [address] [facility] [address] [place] [phone] Manuelito Baltazar MD 10/11/[address] [phone] Haleigh Young MD Med Refill 10/11/[address] [phone] Haleigh Young MD Appointment Request 10/11/2024 3:06 AM ADVERTISING PRODUCTION MANAGER - 10/11/2024 7:25 AM [facility] Emergency Department [facility] [place] [address] Jean Claude Matta Jr., MD Paruchuri, Tharun, MD Narcotic dependence (HCC) (Primary Dx); Benzodiazepine dependence (HCC); Atypical chest pain; End stage COPD (HCC); Palliative care patient Discharge Disposition: Discharge to home or self care 10/10/2024 Documentation [facility] [address] [place] [phone] Kamila Witt NP 10/02/2024 Orders Only [facility] [address] [place] [address] Kamila Witt NP Chronic bilateral low back pain with bilateral sciatica; Spinal stenosis of lumbar region at multiple levels 09/26/[address] [phone] Haleigh Young MD Poor Memory/Concentration 09/24/[address] [phone] Haleigh Young MD 09/23/2024 5:01 AM RUST - 09/23/2024 11:05 AM [facility] Emergency Department [facility] [place] [address] Sushant Ramirez DO Medication refill (Primary Dx); Chronic pain syndrome; Chronic bilateral low back pain with bilateral sciatica; Spinal stenosis of lumbar region at multiple levels; Hypoglycemia Discharge Disposition: Discharge to home or self care 09/22/2024 Telephone [facility] [address] [place] [phone] Kamila Witt NP 09/18/2024 Orders Only [facility] [address] [place] [phone] Eduar, Kamila A., HOME CARE NURSE COPD exacerbation (HCC) (Primary Dx) 09/10/2024 Orders Only [facility] [address] [place] [phone] Kamila Witt NP Chronic bilateral low back pain with bilateral sciatica; Spinal stenosis of lumbar region at multiple levels 09/07/2024 1:35 PM ADVERTISING PRODUCTION MANAGER - 09/07/2024 1:45 PM ADVERTISING PRODUCTION MANAGER [facility] Emergency Department [address] [place] [address] Discharge Disposition: Left without being seen 09/06/2024 Telephone [facility] Family Medicine [address] [phone] Haleigh Young MD Shortness of Breath 08/30/2024 Telephone [facility] Pulmonary [place] [address] [facility] [address] [place] [phone] Ervin Garcia MD Sick Call [...] 01/28/2024 Assessment & Plan (07/27/2024 3:57 PM ADVERTISING PRODUCTION MANAGER): Symptom duration 2 weeks Recent covid, flu [...] 11/01/2023 Assessment & Plan (11/01/2023 10:01 AM ADVERTISING PRODUCTION MANAGER): Chronic, persistent Encouraged to follow up with pain management Encouraged to update me after the visit Continue lyrica as prescribed Urinary incontinence 11/01/2023 Assessment & Plan (11/01/2023 10:05 AM ADVERTISING PRODUCTION MANAGER): Chronic, persistent Will place referral to urology for guidance Update me after the visit Incontinence of feces with fecal urgency Assessment & Plan (11/01/2023 10:02 AM ADVERTISING PRODUCTION MANAGER): Chronic, persistent Encouraged to follow up with Dr Burdick Update me after the visit Call for questions Chronic respiratory failure with hypoxia Assessment & Plan (06/28/2024 11:25 AM CDT): Chronic. Stable. Continue supplemental oxygen, 2 L. continue to follow with pulmonology. Assessment & Plan (04/12/2024 1:17 PM CDT): Chronic, persistent Oxygen level improved today Will reach out to her supervisor claims given her numbers, I do worry her [...] was reviewed with the patient and her learning and development intern Assessment & Plan (02/09/2024 11:30 AM [...] 01/26/2022 Assessment & Plan (10/29/2024 1:54 PM ADVERTISING PRODUCTION MANAGER): BMI Follow-up includes: education provided. Assessment & Plan (10/17/2024 12:08 PM ADVERTISING PRODUCTION MANAGER): Chronic, stable BMI Follow-up includes: Encouraged healthy [...] and cardizem Continue to follow with her environmental maintenance worker Update me with any changes Call for [...] 11/24/2021 Assessment & Plan (11/01/2023 10:01 AM ADVERTISING PRODUCTION MANAGER): Chronic, persistent Encouraged to follow up with [...] PM CDT): Chronic, stable Continue valtrex through TECHNICAL BUYER History of Lena fundoplication 08/17/2021 History of [...] Continue Doug Set up follow-up with her environmental maintenance worker as well Update me with any changes Call for questions or concerns Assessment & Plan (05/21/2022 6:17 PM CDT): With SVT during her hospital stay at [facility] Continue doug Encouraged follow up with [...] please contact the office. I strongly encourage [employer] sign ups. It can facilitate communication flow. [...] please contact the office. I strongly encourage [employer] sign ups. It can facilitate communication flow. [...] monitor Assessment & Plan (09/16/2020 3:02 PM ADVERTISING PRODUCTION MANAGER): Unclear etiology She is not specific on [...] pt Assessment & Plan (09/16/2020 3:01 PM ADVERTISING PRODUCTION MANAGER): Currently only taking effexor contineu current management Assessment & Plan (07/15/2020 8:50 AM ADVERTISING PRODUCTION MANAGER): We will start lyrica 150 mg BID [...] groups. Assessment & Plan (11/01/2023 10:06 AM ADVERTISING PRODUCTION MANAGER): Chronic, worse Encouraged to reach out to [...] concerns Assessment & Plan (07/15/2020 8:48 AM ADVERTISING PRODUCTION MANAGER): We will continue this current regime, she [...] 07/08/2020 Assessment & Plan (11/01/2023 10:01 AM ADVERTISING PRODUCTION MANAGER): Chronic, persistent Encouraged to follow up with [...] of lumbar spine. Continue pain management with Savannah 5/325 mg q.6 p.r.n., lidocaine patch, Flexeril 5 mg t.i.d. p.r.n.. PT/OT care. Patient need to follow up with Dr. Delatorre outpatient Assessment & Plan (11/24/2021 10:34 AM CDT): Will check xray We discussed PT- she is unable to afford it She is going home exercises Continue supportive care Further guidance once we have the results Assessment & Plan (07/15/2020 8:48 AM ADVERTISING PRODUCTION MANAGER): Recommend THC, we will seek out a [...] questions Assessment & Plan (07/15/2020 8:49 AM ADVERTISING PRODUCTION MANAGER): Remeron and effecor Taking only 150 mg [...] (09/07/2018): Added automatically from request for surgery [id number] Assessment & Plan (03/29/2023 4:54 PM CDT): [...] (01/17/2022 12:10 PM CDT): Continue albuterol p.r.n., Ktaharine, Melchor, Mucinex. Follows up with Pulmonary outpatient with Dr. Garcia Assessment & Plan (11/24/2021 10:34 AM CDT): Continue to follow with pulmonary Continue her inhalers Assessment & Plan (09/16/2020 3:02 PM ADVERTISING PRODUCTION MANAGER): Continue seeing pulm spinning and winding supervisor antibiotic and steroids Assessment & Plan (07/08/2020 8:35 AM CDT): Continue to follow-up with pulm History of aspiration pneumonia 05/18/2018 Iron deficiency anemia, unspecified 03/20/2018 Assessment & Plan (11/01/2023 10:09 AM ADVERTISING PRODUCTION MANAGER): Chronic, stable Managed by heme/onc Update me [...] has a call in to the new environmental maintenance worker to see if she can follow-up sooner [...] CDT): Now uses vaping Chronic bullous emphysema ([facility]) 10/26/2016 Overview (12/17/2016): Bullous emphysema Assessment & [...] Garcia Assessment & Plan (07/15/2020 8:47 AM ADVERTISING PRODUCTION MANAGER): Likely resulting in her SOB with the change in medications Continue inhaler and seeing pulm History of gastric ulcer 08/04/2015 Assessment & Plan (03/29/2023 4:54 PM CDT): Resolved Continue Nexium Update me with changes or concerns Continue to follow with GI History of fall Spinal stenosis of lumbar region at multiple lev els Assessment & Plan (11/01/2023 10:02 AM ADVERTISING PRODUCTION MANAGER): Chronic, persistent Encouraged to follow up with [...] (05/30/2022): Added automatically from request for surgery [id number] Diverticulitis large intesti ne w/o perforation or [...] CDT): Chronic, persistent Labs reviewed from her working second hand Referral to hematology pending Update me after [...] (09/07/2018): Added automatically from request for surgery [id number] Gastric ulcer 08/04/2015 03/29/2023 Immunizations Immunization Administration [...] materials from doctor or pharmacy Sometimes 09/22/2023 [facility] Utilities Answer Date Recorded In the past 12 months has th e [employer], gas, oil, or water company threatened to [...] often do you attend chur ch or congregational services? Never 10/18/2024 Do you belong to any clubs o r organizations such as zoroastrian groups, unions, fraternal or athletic groups, or [...] place to sleep or slept in a chcf (including now)? No 10/17/2023 Housing Stability Vital [...] time in the past 12 m [facility], were you homeless or living in a chcf (including now)? No 10/18/2024 Personal Safety Answer Date Recorded Have you ever been in or are you currently in a harmful physical or emotional relationship or is someone making you feel afraid or unsafe? Denies 10/10/2024 Comments No Sex and Gender Information Value Date Recorded Sex Assigned at Not on file Legal Sex Female 1:41 PM ADVERTISING PRODUCTION MANAGER Gender Identity Not on file Sexual Orientation Not on file Occupation Industry Job Start Date Job End Date DISABILITY Not on file Not on file Not on file Last Filed Vital Signs Vital Sign Reading Time Taken Comments Blood Pressure 124/78 10/29/2024 1:23 PM ADVERTISING PRODUCTION MANAGER Pulse 97 10/29/2024 1:23 PM ADVERTISING PRODUCTION MANAGER Temperature 36.7 C (98.1 F) 10/29/2024 1:23 PM ADVERTISING PRODUCTION MANAGER Respiratory Rate 16 10/29/2024 1:23 PM ADVERTISING PRODUCTION MANAGER Oxygen Saturation 98% 10/29/2024 1:23 PM ADVERTISING PRODUCTION MANAGER Inhaled Oxygen Concentration - - Weight 80.7 kg (178 lb) 10/29/2024 1:23 PM ADVERTISING PRODUCTION MANAGER Height 162.6 cm (5' 4 ) 10/29/2024 1:23 PM ADVERTISING PRODUCTION MANAGER Body Mass Index 30.55 10/29/2024 1:23 PM ADVERTISING PRODUCTION MANAGER Plan of Treatment Not on file Goals Goal Patient Goal Type Associated Problems Recent Progress Patient-Stated? Author [facility] General Goal - Patient is knowledgeable about condition when worsening and how to respond ACO Care Management On track(2023 1:13 PM ADVERTISING PRODUCTION MANAGER) No Rosa Herr, RN Note: Problem: [...] ACO Care Management On track(2024 10:21 AM ADVERTISING PRODUCTION MANAGER) No Bev Du LCSW Note: Problem: [...] as needed Medical Devices Implanted Type Area Skip Locator Device Identifier Shelf Expiration Date Model / Serial / Lot Left Foot Screws Foot Procedures Procedure Name Priority Date/Time Associated Diagnosis Comments ALBUMIN CREATININE RATIO, URINE Routine 10/24/2024 11:10 AM ADVERTISING PRODUCTION MANAGER Hyperglycemia IRON PROFILE W/ IBC Routine 10/24/2024 1 1:07 AM ADVERTISING PRODUCTION MANAGER Iron deficiency anemia due to chronic blood loss HEMOGLOBIN A1C Routine 10/24/2024 11:07 AM ADVERTISING PRODUCTION MANAGER Hyperglycemia TROPONIN T HIGH-SENSITIVITY 2-HOUR Timed 10/10/2024 9:50 PM ADVERTISING PRODUCTION MANAGER XR CHEST 1 VIEW ED 10/10/2024 8:17 PM ADVERTISING PRODUCTION MANAGER ECG 12-LEAD STAT 10/10/2024 8:07 PM ADVERTISING PRODUCTION MANAGER EGFR STAT 10/10/2024 7:55 PM ADVERTISING PRODUCTION MANAGER DIFFERENTIAL AUTO STAT 10/10/2024 7:5 5 PM ADVERTISING PRODUCTION MANAGER TROPONIN T HIGH-SENSITIVITY SERIES (BASELINE, 2HR, 4HR, 6HR) STAT 10/10/2024 7:55 PM ADVERTISING PRODUCTION MANAGER COMPREHENSIVE METABOLIC PANEL STAT 10/10/2024 7:55 PM ADVERTISING PRODUCTION MANAGER CBC WITH AUTO DIFFERENTIAL STAT 10/10/2024 7:55 PM ADVERTISING PRODUCTION MANAGER POCT GLUCOSE DEVICE Routine 09/23/2024 1 0:55 AM ADVERTISING PRODUCTION MANAGER POCT GLUCOSE DEVICE Routine 09/23/2024 9 :09 AM ADVERTISING PRODUCTION MANAGER POCT GLUCOSE DEVICE Routine 09/23/2024 8 :39 AM ADVERTISING PRODUCTION MANAGER POCT GLUCOSE DEVICE Routine 09/23/2024 7 :57 AM ADVERTISING PRODUCTION MANAGER POCT GLUCOSE DEVICE Routine 09/23/2024 7 :07 AM ADVERTISING PRODUCTION MANAGER URINALYSIS AND REFLEX TO MICROSCOPIC AND CULTURE STAT 09/23/2024 6:06 AM ADVERTISING PRODUCTION MANAGER EGFR STAT 09/23/2024 5:06 AM ADVERTISING PRODUCTION MANAGER DIFFERENTIAL AUTO STAT 09/23/2024 5:0 6 AM ADVERTISING PRODUCTION MANAGER COMPREHENSIVE METABOLIC PANEL STAT 09/23/2024 5:06 AM ADVERTISING PRODUCTION MANAGER CBC WITH AUTO DIFFERENTIAL STAT 09/23/2024 5:06 AM ADVERTISING PRODUCTION MANAGER POCT GLUCOSE DEVICE Routine 09/23/2024 5 :04 AM ADVERTISING PRODUCTION MANAGER DIAGNOSTIC MAMMOGRAM BILATERAL W SUKUMAR Schedule Routine, Read Routine (OP Routine) 04/09/2024 8:33 AM CDT Follow-up examination of abnormal mammogram COLONOSCOPY 10/28/2023 3:01 PM ADVERTISING PRODUCTION MANAGER HEPATITIS C ANTIBODY Routine 08/09/2023 1:28 PM ADVERTISING PRODUCTION MANAGER DEXA AXIAL SKELETON BONE DENSITY 1 OR [...] Albumin Creatinine Ratio, Urine (10/24/2024 11:10 AM ADVERTISING PRODUCTION MANAGER) Albumin Ur <12.0 mg/L Comment: Interpretive Data No reference range established. Current interpretive data was last revised 2019. Testing performed by: [address] [address] Creatinine Ur 33.4 mg/dL [facility] Comment: Interpretive Data No reference range established. Current interpretive data was last revised 2019. Testing performed by: [address] [address] Albumin Creatinine Ratio, Ur <36(H) 1 - 29 mg/g [facility] Comment:Testing performed by : [address] [address] Urine 10/24/2024 11:1 0 AM ADVERTISING PRODUCTION MANAGER 10/24/2024 11:54 AM ADVERTISING PRODUCTION MANAGER us Haleigh Young MD LAB URINE ORDERABLE S Final Result [facility] [address] [facility] Department [place] [address] * (ABNORMAL) Iron profile w/ IBC (10/24/2024 11:07 AM ADVERTISING PRODUCTION MANAGER) Iron 45 35 - 145 mcg/dL Comment:Testing performed by : [address] [address] TIBC 271 250 - 400 mcg/dL [facility] Comment:Testing performed by : [address] [address] Transferrin saturation 17(L) 20 - 50 % [facility] Comment:Testing performed by : [address] [address] Blood 10/24/2024 11:0 7 AM ADVERTISING PRODUCTION MANAGER 10/24/2024 11:53 AM ADVERTISING PRODUCTION MANAGER us Haleigh Young MD LAB BLOOD ORDERABLE S Final Result Performing Organization Address [facility] de Phone Number [place] [id number] [facility] [place] [address] * Hemoglobin A1c (10/24/2024 11:07 AM ADVERTISING PRODUCTION MANAGER) Hgb A1C 5.4 4.0 - 5.6 % Comment:Testing performed by : [address] [address] Estimated Average Glucose 108 mg/dL [facility] Comment: The ADA recommends reporting an estimated Average Glucose (eAG) with all Hemoglobin A1c results using the equation derived from a study of 507 normal and diabetic adults. Minority populations were underrepresented and children were not included. (Diabetes Care 31:2631-6748, 2008). The eAG is not equivalent to a fasting glucose. Testing performed by: [address] [address] Blood 10/24/2024 11:0 7 AM ADVERTISING PRODUCTION MANAGER 10/24/2024 11:57 AM ADVERTISING PRODUCTION MANAGER us Haleigh Young MD LAB BLOOD ORDERABLE S Final Result Performing Organization Address [facility] de Phone Number [place] [phone] Department [place] [address] * Troponin T high-sensitivity 2-hour (10/10/2024 9:50 PM ADVERTISING PRODUCTION MANAGER) Trop T hs 10 <=14 ng/L Comment: Interpretive Data For further hscTnT resources including the diagnostic algorithm and an aid in interpretation, copy and paste this link: https://nrl.testcatalog.org/show/hsTrop Current Interpretive Data last revised 2020. Testing performed by: [facility], [address] [place] [address]., [address] Trop T hs delta -1 ng/L [facility] Comment:Testing performed by : [address] [address] Trop T hs interp Insignificant [facility] Comment:Testing performed by : [address] [address] Blood 10/10/2024 9:50 PM ADVERTISING PRODUCTION MANAGER 10/10/2024 10:02 PM ADVERTISING PRODUCTION MANAGER us Jean Claude Matta Jr., MD LAB BLOOD ORDERABLES Fi nal Result [facility] [address] [facility] [place] [address] * XR Chest 1 Vw Portable (if patient condition/safety warrant portable) (10/10/2024 8:17 PM ADVERTISING PRODUCTION MANAGER) Anatomical Region Laterality Modality Body, Chest N/A Computed Radiogr aphy 10/10/2024 9:08 PM ADVERTISING PRODUCTION MANAGER Narrative 10/10/2024 9:11 PM ADVERTISING PRODUCTION MANAGER EXAM DESCRIPTION: XR CHEST 1 VIEW REASON [...] Ac Mcdonald M.D. NS: NS Report ID: [id number] Reading Location: [place] [address] Procedure Note Ac Mcdonald MD - 10/10/2024 [...] Ac Mcdonald M.D. NS: NS Report ID: [id number] Reading Location: [id number] us Jean Claude Matta Jr., MD IMG XR PROCEDURES Final Result * ECG 12 lead (10/10/2024 8:07 PM ADVERTISING PRODUCTION MANAGER) Ventricular Rate EKG/Min 79 BPM [facility] Atrial Rate 79 BPM [facility] AL-Interval (MSEC) 170 ms [facility] QRS-Interval (MSEC) 72 ms [facility] QT-Interval (MSEC) 398 ms [facility] QTc 456 ms [facility] P [place] 57 degrees [facility] R [place] 21 degrees [facility] T [place] 27 degrees [facility] Diagnosis Normal sinus rhythm Normal ECG When compared with ECG of 03-FEB-2024 18:59, No significant change was found Confirmed by LYNDSAY GARLAND M.D. ([id number]) on 10/12/2024 12:10:20 PM [facility] 10/10/2024 8:07 PM ADVERTISING PRODUCTION MANAGER 10/12/2024 12:10 PM ADVERTISING PRODUCTION MANAGER us Jean Claude Matta Jr., MD ECG ORDERABLES Final R esult [facility] * Troponin T high-sensitivity series (baseline, 2hr, 4hr, 6hr) (10/10/2024 7:55 PM ADVERTISING PRODUCTION MANAGER) Pathologist [facility] Trop T hs 11 <=14 ng/L Comment: Interpretive Data For further hscTnT resources including the diagnostic algorithm and an aid in interpretation, copy and paste this link: https://nrl.testcatalog.org/show/hsTrop Current Interpretive Data last revised 2020. Testing performed by: [facility], [address] [place] [address]., [address] Blood 10/10/2024 7:5 5 PM ADVERTISING PRODUCTION MANAGER 10/10/2024 8:03 PM ADVERTISING PRODUCTION MANAGER us Jean Claude Matta Jr., MD LAB BLOOD ORDERABLES Fi nal Result Performing Organization Address [facility] de Phone Number [facility] [address] [place] [address] * eGFR (10/10/2024 7:55 PM ADVERTISING PRODUCTION MANAGER) eGFR >90 >=60 mL/min/1. 73 m2 Comment: [...] was last reviewed 2021. Testing performed by: [address] [address] Blood 10/10/2024 7:55 PM ADVERTISING PRODUCTION MANAGER 10/10/2024 8:03 PM ADVERTISING PRODUCTION MANAGER us Jean Claude Matta Jr., MD LAB BLOOD ORDERABLES Fi nal Result Performing Organization Address [facility] Co de Phone Number [facility] [place] [address] * Differential, auto (10/10/2024 7:55 PM ADVERTISING PRODUCTION MANAGER) Neutrophil abs 4.6 1.5 - 6.5 K/cumm Comment:Testing performed by : [address] [address] Imm gran abs 0.0 0.0 - 0.1 K/cumm [facility] Comment:Testing performed by : [address], [place]., [address] Lymphocyte abs 1.5 0.8 - 3.3 K/cumm [facility] Comment:Testing performed by : [address], [place]., [address] Monocyte abs 0.7 0.2 - 0.8 K/cumm [facility] Comment:Testing performed by : [address], [place]., [address] Eosinophil abs 0.3 0.0 - 0.5 K/cumm [facility] Comment:Testing performed by : [address] [address] Basophil abs 0.0 0.0 - 0.1 K/cumm [facility] Comment:Testing performed by : [address] [address] Neutrophil pct 64.8 % [facility] Comment: Interpretive Data Percent cell count reference ranges are not reported, since discordance with absolute values may lead to misinterpretation of CBC data. Current Interpretive Data was last revised on 2017. Testing performed by: [address] [address] Imm gran pct 0.4 % [facility] Comment: Interpretive Data Percent cell count reference ranges are not reported, since discordance with absolute values may lead to misinterpretation of CBC data. Current Interpretive Data was last revised on 2017. Testing performed by: [address] [address] Lymphocyte pct 20.8 % [facility] Comment: Interpretive Data Percent cell count reference ranges are not reported, since discordance with absolute values may lead to misinterpretation of CBC data. Current Interpretive Data was last revised on 2017. Testing performed by: [address] [address] Monocyte pct 9.4 % [facility] Comment: Interpretive Data Percent cell count reference ranges are not reported, since discordance with absolute values may lead to misinterpretation of CBC data. Current Interpretive Data was last revised on 2017. Testing performed by: [address] [address] Eosinophil pct 4.2 % [facility] Comment: Interpretive Data Percent cell count reference ranges are not reported, since discordance with absolute values may lead to misinterpretation of CBC data. Current Interpretive Data was last revised on 2017. Testing performed by: [address] [address] Basophil pct 0.4 % [facility] Comment: Interpretive Data Percent cell count reference ranges are not reported, since discordance with absolute values may lead to misinterpretation of CBC data. Current Interpretive Data was last revised on 2017. Testing performed by: [address] [address] Blood 10/10/2024 7:55 PM ADVERTISING PRODUCTION MANAGER 10/10/2024 8:03 PM ADVERTISING PRODUCTION MANAGER us Jean Claude Matta Jr., MD LAB BLOOD ORDERABLES Fi nal Result [facility] [address] [facility] Department [place] [address] * (ABNORMAL) CBC with auto differential (10/10/2024 7:55 PM ADVERTISING PRODUCTION MANAGER) WBC 7.1 3.8 - 9.9 K/cumm Comment:Testing performed by : [address] [address] Hgb 10.9(L) 11.9 - 15.5 g/dL [facility] Comment:Testing performed by : [address] [address] Hct 37.0 35.6 - 45.5 % [facility] Comment:Testing performed by : [address] [address] Plt 355 150 - 400 K/cumm [facility] Comment:Testing performed by : [address] [address] MPV 10.5 9.1 - 12.3 fL [facility] Comment:Testing performed by : [address] [address] RBC 5.01 3.90 - 5.20 M/cumm [facility] Comment:Testing performed by : [address] [address] MCV 73.9(L) 81.3 - 96.4 fL [facility] Comment:Testing performed by : [address] [address] MCH 21.8(L) 27.1 - 33.3 pg [facility] Comment:Testing performed by : [address] [address] MCHC 29.5(L) 32.3 - 35.7 g/dL [facility] Comment:Testing performed by : [address] [address] RDW CV 17.1(H) 11.1 - 14.9 % [facility] Comment:Testing performed by : [address] [address] RDW SD 44.8 35.7 - 48.1 fL [facility] Comment:Testing performed by : [address] [address] NRBC abs 0.00 0.00 - 0.01 K/cumm [facility] Comment:Testing performed by : [address] [address] Blood Venous blood specimen / Unknown 10/10/2024 7:55 PM ADVERTISING PRODUCTION MANAGER 10/10/2024 8:03 PM ADVERTISING PRODUCTION MANAGER us Jean Claude Matta Jr., MD LAB BLOOD ORDERABLES Fi nal Result [facility] [address] [facility] Department [place] [address] * (ABNORMAL) Comprehensive metabolic panel (10/10/2024 7:55 PM ADVERTISING PRODUCTION MANAGER) Sodium 136 135 - 145 mmol/L Comment:Testing performed by : [address] [address] Potassium, pl 3.3 3.3 - 4.9 mmol/L [facility] Comment: Hemolyzed; Potassium value may be falsely elevated by as much as 1.0 mmol/L. Suggest redraw and reanalysis. Testing performed by: [address] [address] Chloride 99 97 - 110 mmol/L [facility] Comment:Testing performed by : [address], [place]., [address] CO2 23 22 - 32 mmol/L [facility] Comment:Testing performed by : [address] [address] Anion gap 14 2 - 15 mmol/L [facility] Comment:Testing performed by : [address], [place]., [address] BUN 4(L) 6 - 25 mg/dL [facility] Comment:Testing performed by : [address], [place]., [address] Creatinine 0.69 0.60 - 1.10 mg/dL [facility] Comment:Testing performed by : [address] [address] Glucose 118 70 - 199 mg/dL [facility] [...] was last revised 2022. Testing performed by: [address] [address] Calcium 9.7 8.5 - 10.3 mg/dL [facility] Comment:Testing performed by : [address] [address] Bilirubin, total 0.4 0.1 - 1.2 mg/dL [facility] Comment:Testing performed by : [address] [address] Protein, pl 7.0 6.5 - 8.5 g/dL [facility] Comment:Testing performed by : [address] [address] Albumin 3.7 3.5 - 5.0 g/dL [facility] Comment:Testing performed by : [address] [address] Alk phos 124 40 - 130 Units/L [facility] Comment:Testing performed by : [address] [address] ALT 16 7 - 45 Units/L [facility] Comment:Testing performed by : [address] [address] AST 18 10 - 45 Units/L [facility] Comment: Hemolyzed; result may be falsely elevated Testing performed by: [address] [address] Blood 10/10/2024 7:55 PM ADVERTISING PRODUCTION MANAGER 10/10/2024 8:03 PM ADVERTISING PRODUCTION MANAGER Jean Claude Matta Jr., MD LAB BLOOD ORDERABLES Fi nal Result Performing Organization Address [facility]/ZIP Co de Phone Number [address] [place] [address] * POCT glucose (09/23/2024 10:55 AM ADVERTISING PRODUCTION MANAGER) [facility] Glucose, POC 92 70 - 199 mg/dL Comment:Testing performed by : [address] [address] Glucose comment 1 Use This Result [facility] Comment:Testing performed by : [address] [address] Blood 09/23/2024 10:5 5 AM ADVERTISING PRODUCTION MANAGER 09/23/2024 10:55 AM ADVERTISING PRODUCTION MANAGER Sushant Ramirez DO LAB POCT ORDERABLES - DEVICE F inal Result Performing Organization Address City/[facility] Co de Phone Number [address] [place] [employer] [place] [address] * POCT glucose (09/23/2024 9:09 AM ADVERTISING PRODUCTION MANAGER) Glucose, POC 103 70 - 199 mg/dL Comment:Testing performed by : [address] [address] Glucose comment 1 Use This Result [facility] Comment:Testing performed by : [address] [address] Blood 09/23/2024 9:09 AM ADVERTISING PRODUCTION MANAGER 09/23/2024 9:09 AM ADVERTISING PRODUCTION MANAGER Qonf LAB POCT ORDERABLES - DEVICE F inal Result Performing Organization Address [facility] de Phone Number [address] [place] [address] * POCT glucose (09/23/2024 8:39 AM ADVERTISING PRODUCTION MANAGER) Glucose, POC 96 70 - 199 mg/dL Comment:Testing performed by : [address] [address] Glucose comment 1 Use This Result [facility] Comment:Testing performed by : [address] [address] Blood 09/23/2024 8:39 AM ADVERTISING PRODUCTION MANAGER 09/23/2024 8:39 AM ADVERTISING PRODUCTION MANAGER Qonf LAB POCT ORDERABLES - DEVICE F inal Result Performing Organization Address City/[facility] Co de Phone Number [address] [place] [address] * POCT glucose (09/23/2024 7:57 AM ADVERTISING PRODUCTION MANAGER) Glucose, POC 91 70 - 199 mg/dL Comment:Testing performed by : [address] [address] Glucose comment 1 Use This Result [facility] Comment:Testing performed by : [address] [address] Blood 09/23/2024 7:57 AM ADVERTISING PRODUCTION MANAGER 09/23/2024 7:57 AM ADVERTISING PRODUCTION MANAGER Qonf LAB POCT ORDERABLES - DEVICE F inal Result Performing Organization Address [facility] de Phone Number [facility] [address] [place] [address] * (ABNORMAL) POCT glucose (09/23/2024 7:07 AM ADVERTISING PRODUCTION MANAGER) Glucose, POC 49(C) 70 - 199 mg/dL Comment:Testing performed by : [address] [address] Glucose comment 1 Use This Result [facility] Comment:Testing performed by : [address] [address] Blood 09/23/2024 7:07 AM ADVERTISING PRODUCTION MANAGER 09/23/2024 7:07 AM ADVERTISING PRODUCTION MANAGER Qonf LAB POCT ORDERABLES - DEVICE F inal Result Performing Organization Address [facility] de Phone Number [facility] [address] [place] [address] * Urinalysis reflex to microscopic and culture Urine (09/23/2024 6:06 AM ADVERTISING PRODUCTION MANAGER) Color, ur Straw Yellow Comment:Testing performed by : [address] [address] Clarity, ur Clear Clear [facility] Comment:Testing performed by : [address] [address] Specific gravity, ur 1.009 1.003 - 1.030 [facility] Comment:Testing performed by : [address] [address] pH, urine 6.5 [facility] Comment: Interpretive Data U rine pH is affected by diet, medications, systemic acid-base disturbances, and renal tubular function. pH may affect urinary stone formation. For example, urine pH below 6.0 may help reduce the tendency for calcium phosphate stones and pH greater than 6.0 may reduce the tendency for uric acid stone formation. Source: [facility] Current Interpretive Data was last revised on 2017 Testing performed by: [facility], [address] [place] [address], [place]., [address] Protein, ur ql Negative Negative [facility] Comment:Testing performed by : [address], [place]., [address] Glucose, ur ql Negative Negative [facility] Comment:Testing performed by : [address], [place]., [address] Ketones, ur Negative Negative [facility] Comment:Testing performed by : [address], [place]., [address] Bilirubin, ur Negative Negative [facility] Comment:Testing performed by : [address], [place]., [address] Blood, ur Negative Negative [facility] Comment:Testing performed by : [address], [place]., [address] Urobilinogen, ur <2.0 <2.0 mg/dL [facility] Comment:Testing performed by : [address], [place]., [address] Nitrite, ur Negative Negative [facility] Comment:Testing performed by : [address], [place]., [address] Leukocyte esterase, ur Negative Negative [facility] Comment:Testing performed by : [address], [place]., [address] UA reflex comment Reflex conditions for microscopic UA and culture not met. [facility] Comment:Testing performed by : [address], [place]., [address] Urine 09/23/2024 6:06 AM ADVERTISING PRODUCTION MANAGER 09/23/2024 6:09 AM ADVERTISING PRODUCTION MANAGER us Jean Claude Matta Jr., MD LAB MICROBIOLOGY - GENE RAL ORDERABLES Final Result [facility] [address] [facility] Department [place] [address] * eGFR (09/23/2024 5:06 AM ADVERTISING PRODUCTION MANAGER) eGFR 81 >=60 mL/min/1. 73 m2 Comment: [...] was last reviewed 2021. Testing performed by: [address] [address] Blood 09/23/2024 5:06 AM ADVERTISING PRODUCTION MANAGER 09/23/2024 5:10 AM ADVERTISING PRODUCTION MANAGER us Jean Claude Matta Jr., MD LAB BLOOD ORDERABLES Fi nal Result [facility] [address] [facility] Department [place] [address] * (ABNORMAL) Differential, auto (09/23/2024 5:06 AM ADVERTISING PRODUCTION MANAGER) Pathologist [facility] Neutrophil abs 6.8(H) 1.5 - 6.5 K/cumm Comment:Testing performed by : [address] [address] Imm gran abs 0.1 0.0 - 0.1 K/cumm [facility] Comment:Testing performed by : [address] [address] Lymphocyte abs 0.8 0.8 - 3.3 K/cumm [facility] Comment:Testing performed by : [address] [address] Monocyte abs 0.6 0.2 - 0.8 K/cumm [facility] Comment:Testing performed by : [address] [address] Eosinophil abs 0.0 0.0 - 0.5 K/cumm [facility] Comment:Testing performed by : [address] [address] Basophil abs 0.0 0.0 - 0.1 K/cumm [facility] Comment:Testing performed by : [address] [address] Neutrophil pct 81.8 % [facility] Comment: Interpretive Data Percent cell count reference ranges are not reported, since discordance with absolute values may lead to misinterpretation of CBC data. Current Interpretive Data was last revised on 2017. Testing performed by: [address] [address] Imm gran pct 0.7 % [facility] Comment: Interpretive Data Percent cell count reference ranges are not reported, since discordance with absolute values may lead to misinterpretation of CBC data. Current Interpretive Data was last revised on 2017. Testing performed by: [address] [address] Lymphocyte pct 9.3 % [facility] Comment: Interpretive Data Percent cell count reference ranges are not reported, since discordance with absolute values may lead to misinterpretation of CBC data. Current Interpretive Data was last revised on 2017. Testing performed by: [address] [address] Monocyte pct 7.7 % [facility] Comment: Interpretive Data Percent cell count reference ranges are not reported, since discordance with absolute values may lead to misinterpretation of CBC data. Current Interpretive Data was last revised on 2017. Testing performed by: [address] [address] Eosinophil pct 0.5 % [facility] Comment: Interpretive Data Percent cell count reference ranges are not reported, since discordance with absolute values may lead to misinterpretation of CBC data. Current Interpretive Data was last revised on 2017. Testing performed by: [address] [address] Basophil pct 0.0 % [facility] Comment: Interpretive Data Percent cell count reference ranges are not reported, since discordance with absolute values may lead to misinterpretation of CBC data. Current Interpretive Data was last revised on 2017. Testing performed by: [address] [address] Blood 09/23/2024 5:06 AM ADVERTISING PRODUCTION MANAGER 09/23/2024 5:10 AM ADVERTISING PRODUCTION MANAGER us Jean Claude Matta Jr., MD LAB BLOOD ORDERABLES Fi nal Result [facility] [address] [facility] Department of Laboratories [place], [place] [id number] * (ABNORMAL) CBC with auto differential (09/23/2024 5:06 AM ADVERTISING PRODUCTION MANAGER) WBC 8.3 3.8 - 9.9 K/cumm Comment:Testing performed by : [address] [address] Hgb 12.5 11.9 - 15.5 g/dL [facility] Comment:Testing performed by : [address] [address] Hct 41.7 35.6 - 45.5 % [facility] Comment:Testing performed by : [address] [address] Plt 207 150 - 400 K/cumm [facility] Comment:Testing performed by : [address] [address] MPV 11.7 9.1 - 12.3 fL [facility] Comment:Testing performed by : [address] [address] RBC 5.66(H) 3.90 - 5.20 M/cumm [facility] Comment:Testing performed by : [address] [address] MCV 73.7(L) 81.3 - 96.4 fL [facility] Comment:Testing performed by : [address] [address] MCH 22.1(L) 27.1 - 33.3 pg [facility] Comment:Testing performed by : [address] [address] MCHC 30.0(L) 32.3 - 35.7 g/dL [facility] Comment:Testing performed by : [address] [address] RDW CV 18.3(H) 11.1 - 14.9 % [facility] Comment:Testing performed by : [address] [address] RDW SD 45.1 35.7 - 48.1 fL [facility] Comment:Testing performed by : [address] [address] NRBC abs 0.00 0.00 - 0.01 K/cumm [facility] Comment:Testing performed by : [address] [address] Blood 09/23/2024 5:06 AM ADVERTISING PRODUCTION MANAGER 09/23/2024 5:10 AM ADVERTISING PRODUCTION MANAGER us Jean Claude Matta Jr., MD LAB BLOOD ORDERABLES Fi nal Result [facility] [address] [facility] Department [place] [address] * (ABNORMAL) Comprehensive metabolic panel (09/23/2024 5:06 AM ADVERTISING PRODUCTION MANAGER) Sodium 139 135 - 145 mmol/L Comment:Testing performed by : [address] [address] Potassium, pl 3.4 3.3 - 4.9 mmol/L [facility] Comment:Testing performed by : [address] [address] Chloride 103 97 - 110 mmol/L [facility] Comment:Testing performed by : [address] [address] CO2 24 22 - 32 mmol/L [facility] Comment:Testing performed by : [address] [address] Anion gap 12 2 - 15 mmol/L [facility] Comment:Testing performed by : [address] [address] BUN 26(H) 6 - 25 mg/dL [facility] Comment:Testing performed by : [address] [address] Creatinine 0.80 0.60 - 1.10 mg/dL [facility] Comment:Testing performed by : [address] [address] Glucose 77 70 - 199 mg/dL [facility] [...] was last revised 2022. Testing performed by: [address] [address] Calcium 9.5 8.5 - 10.3 mg/dL [facility] Comment:Testing performed by : [address] [address] Bilirubin, total 0.5 0.1 - 1.2 mg/dL [facility] Comment:Testing performed by : [address] [address] Protein, pl 7.0 6.5 - 8.5 g/dL [facility] Comment:Testing performed by : [address] [address] Albumin 3.7 3.5 - 5.0 g/dL [facility] Comment:Testing performed by : [address] [address] Alk phos 82 40 - 130 Units/L [facility] Comment:Testing performed by : [address] [address] ALT 11 7 - 45 Units/L [facility] Comment:Testing performed by : [address] [address] AST 11 10 - 45 Units/L [facility] Comment:Testing performed by : [address] [address] Blood 09/23/2024 5:06 AM ADVERTISING PRODUCTION MANAGER 09/23/2024 5:10 AM ADVERTISING PRODUCTION MANAGER Jean Claude Matta Jr., MD LAB BLOOD ORDERABLES Fi nal Result Performing Organization Address [facility] de Phone Number [facility] [address] [place] [address] [place] [address] * POCT glucose (09/23/2024 5:04 AM ADVERTISING PRODUCTION MANAGER) [facility] Glucose, POC 71 70 - 199 mg/dL Comment:Testing performed by : [address] [address] Glucose comment 1 Use This Result [facility] Comment:Testing performed by : [address] [address] Glucose comment 2 RN/MD Notified [facility] Comment:Testing performed by : [address] [address] Blood 09/23/2024 5:04 AM ADVERTISING PRODUCTION MANAGER 09/23/2024 5:04 AM ADVERTISING PRODUCTION MANAGER Notinfile Unknown LAB POCT ORDERABLES - DEVICE F inal Result Performing Organization Address [facility] de Phone Number [facility] [address] [facility] [place] [address] * Diagnostic Mammogram Bilateral W Sukumar (04/09/2024 [...] Gen Anderson M.D. RL: REBECCA Report ID: [id number] Reading Location: [facility] us Haleigh Young MD IMG MAMMO PROCEDURE S Final Result * COLONOSCOPY (10/28/2023 3:01 PM ADVERTISING PRODUCTION MANAGER) Anatomical Region Laterality Modality Other Narrative Procedure Note Jammie Burdick MD - 10/28/2023 3:01 PM CST [facility] ENDOSCOPY Patient Name: Dipti Luna Procedure Date: 10/28/2023 3:01 PM Date of : 1960 Admit Type: Outpatient Age: 63 Gender: Female Attending MD: Jammie Burdick M.D. Room: [facility] ENDOSCOPY ROOM 06 Note Status: [...] The scope was passed under direct vision.The [id number] colonoscope was introduced through theanus and advanced [...] On: 10/28/2023 3:01 PM Recognized by the [employer] for promoting quality in endoscopy Jammie Burdick MD ENDOSCOPY PROCEDURES Tash l Result * Hepatitis C antibody Blood (08/09/2023 1:28 PM ADVERTISING PRODUCTION MANAGER) Hep C Ab Nonreactive Nonreactive [facility] [...] revised on 2019. Blood 08/09/2023 1:28 PM ADVERTISING PRODUCTION MANAGER 08/09/2023 6:31 PM ADVERTISING PRODUCTION MANAGER Jammie Burdick MD LAB MICROBIOLOGY - GENERA L ORDERABLES Final Result [facility] [address] [facility] Department [place] [address] * DEXA Axial Skeleton Bone Density Multi Site (02/22/2023 10:45 AM CDT) Anatomical Region Laterality Modality Body N/A Mammography 02/22/2023 3:45 PM CDT Narrative 02/22/2023 3:45 PM CDT EXAM DESCRIPTION: DEXA AXIAL SKELETON BONE DENSITY 1 OR MORE SITES REASON FOR STUDY: 62 y/o year old F with given history of screening. Skip Locator/Model: Cartour A (S/N [id number]) CLINICAL INFORMATION: Current height: 64 inches Maximum [...] Elodia Recinos M.D. TW: TW Report ID: [id number] Reading Location: [place] [address] Procedure Note Elodia Recinos MD - 02/22/2023 EXAM DESCRIPTION: DEXA AXIAL SKELETON BONE DENSITY 1 OR MORE SITES REASON FOR STUDY: 62 y/o year old F with given history of screening. Skip Locator/Model: HoloTruist A (S/N [id number]) CLINICAL INFORMATION: Current height: 64 inches Maximum [...] Elodia Recinos M.D. TW: TW Report ID: [id number] Reading Location: [place] [address] [facility] DXA PROCEDURES Final Result * Pap and High Risk HPV, reflex to Genotyping (12/22/2022 7:56 AM CDT) Thin prep (Pap test) 12/22/2022 7:56 AM CDT 12/23/2022 7:56 AM CDT Narrative PATHOLOGY [facility] - 12/28/2022 11:38 AM CDT [facility] Department of Pathology [address] [place] [id number] Final Report with Addendum Note to [...] the details. Patient Name: DIPTI LUNA Address: [address] [place] [address], [address] [place] [address] Gender: F : 1960 (Age: 62) Service: Location: [facility] : [id number] [facility] #: [id number] Patient Type: [facility] SPECIMEN Taken: 12/22/2022 Received: 12/23/2022 Accessioned:: 12/24/2022 Reported: 12/28/2022 Physician(s): Nia Alfred M.D. [facility] Diagnosis: SOURCE OF SPECIMEN SCREENING THIN [...] determined by the Surgical Pathology Department at [facility] as part of an ongoing quality assurance director program and in compliance with federally mandated [...] characteristics determined by the Surgical Pathology Department [facility]. It has not been cleared or approved by the U. S. Food and Drug Administration. Nai Alfred MD LAB CYTOLOGY ORDERABLES F inal Result PATHOLOGY [facility] from Last 3 Months or Most Recently Relevant to Health Maintenance Insurance [facility]ANTRA Advance Directives For more information, please contact: [phone] Documents on File Type Date Recorded Patient Adult Basic Studies Teacher Expl anation ADVANCE DIRECTIVE 02/01/2024 1:59 PM POLST - Phys Order for PT Preferences ADVANCE DIRECTIVE 01/30/2024 1:03 PM Power of Territory Service Representative-Medical ADVANCE DIRECTIVE 06/02/2022 12:57 PM Jami r of Territory Service Representative-Medical ADVANCE DIRECTIVE 06/02/2022 12:56 PM Yoon ng [...] 4:56 PM 05/31/2022 2:29 PM Care Teams Neurology Epilepsy Physician Relationship Specialty Start Date End Date Haleigh Young MD [address] [address] PCP - General Family Medicine 11/24/21 Luis Saunders MD Referring Physician Gastroenterology 07/31/18 Jammie Burdick MD Referring Physician Gastroenterology 07/31/18 Ervin Garcia MD [address] [facility] [address] [address] Consulting Physician Pulmonary Disease 07/08/20 Jean Carlos Berrios MD [address] [place] [address] Referring Physician Obstetrics and Gynecology 02/23/22 Rosa Herr RN [address] [place] [address] [facility] [address] [place] [address] Blow Mold Technician 06/03/22 Braden Sherwood DO [address] [facility] [address] [place] [address] Referring Physician Psychiatry 06/04/22 Ladonna Martinez, COLLIN [address] [facility] [address] [place] [address] Nurse Practitioner Nurse Practitioner 10/31/23 Kamila Witt NP [address] [facility] [place] [address] Nurse Practitioner Hospice and Palliative Medicine 03/01/24
--- OUTSIDE RECORDS SUMMARY | 2024-11-26 17:14 | XMS_ITS | Encounter Summary ---
Author Organization [facility] Healthcare Address [address] [place] [address] Care Team Providers Care Supervisor Feed Mill Name Role Phone Luis Saunders MD Unavailable [phone] Jammie Burdick MD Unavailable [phone] Ervin Garcia MD Unavailable [phone] Haleigh Young MD Primary Care Provi naye Jean Carlos Berrios MD Unavailable [phone] Rosa Herr RN Unavailable [phone] Braden Sherwood DO Unavailable [phone] Ladonna Martinez INSPECTOR PACKER GLASS CONTAINER Unavailable [phone] Kamila Witt NP Unavailable [phone] Encounter Details Date Type Department Care Team (Late st Contact Info) Description 10/29/2024 Telephone [facility] Family Medicine [address] [address] Haleigh Young MD [address] [address] Social History Tobacco Use Types [...] materials from doctor or pharmacy Sometimes 09/22/2023 [facility] Utilities Answer Date Recorded In the past 12 months has th e [employer], gas, oil, or water [employer] threatened to shut off services in your [...] often do you attend chur ch or rastafari services? Never 10/18/2024 Do you belong to any clubs o r organizations such as judaism groups, unions, fraternal or athletic groups, or [...] place to sleep or slept in a nursing home (including now)? No 10/17/2023 Housing Stability [...] were you homeless or living in a nursing home (including now)? No 10/18/2024 Personal Safety Answer Date Recorded Have you ever been in or are you currently in a harmful physical or emotional relationship or is someone making you feel afraid or unsafe? Denies 10/10/2024 Comments No Sex and Gender Information Value Date Recorded Sex Assigned at Not on file Legal Sex Female 1:41 PM INFORMATION ASSURANCE ANALYST Gender Identity Not on file Sexual Orientation Not on file Occupation Industry Job Start Date Job End Date DISABILITY Not on file Not on file Not on file documented as of this encounter Functional Status * Audit-C Score Answer Date of Assessment Author 0 10/29/2024 1:23 PM INFORMATION ASSURANCE ANALYST Tami Mota MA * Question Answer Date of Assessment Author Q1: How often do you have a drink containing alcohol? Never 10/29/2024 1:23 PM INFORMATION ASSURANCE ANALYST Tami Mota MA Q2: How many drinks containing alcohol do you have on a typical day when you are drinking? Patient does not drink 10/29/2024 1:23 PM INFORMATION ASSURANCE ANALYST Tami Mota MA Q3: How often do you have six or more drinks on one occasion? Never 10/29/2024 1:23 PM INFORMATION ASSURANCE ANALYST Tami Mota MA documented as of this encounter Miscellaneous Notes * Telephone Encounter - Neda Cisneros LPN - 10/29/2024 11:52 AM CST Referral placed and supporting documentation sent RMATION ASSURANCE ANALYST * Telephone Encounter - Nicolas German LCSW - 10/29/2024 10:29 AM INFORMATION ASSURANCE ANALYST Good morning. I spoke with patient and she confirmed plan to attend scheduled appointment today. She has if a new referral may be placed to palliative care provider due to chronic health conditions/symptoms management with discontinuous of habit forming medications. Her son will be moving to [place], where her daughter is also located. She will not have local familial support. Please assess/assist. Kindest regards, Nicolas German LCSW [facility] Medical Group Accountable Care Organization [phone] [email or web address] RMATION ASSURANCE ANALYST documented in this encounter Plan of Treatment Not on file documented as of this encounter Goals Goal Patient Goal Type Associated Problems Recent Progress Patient-Stated? Author RIMA General Goal - Patient is knowledgeable about condition when worsening and how to respond ACO Care Management On track(2023 1:13 PM INFORMATION ASSURANCE ANALYST) Rosa Gu RN Note: Problem: Knowledge deficit [...] ACO Care Management On track(2024 10:21 AM INFORMATION ASSURANCE ANALYST) No Bev Du LCSW Note: Problem: Need [...] on filedocumented in this encounter Care Teams Supervisor Feed Mill Relationship Specialty Start Date End Date Haleigh Young MD [address] [place] [address] PCP - General Family Medicine 11/24/21 Luis Saunders MD Referring Physician Gastroenterology 07/31/18 Jammie Burdick MD Referring Physician Gastroenterology 07/31/18 Ervin Garcia MD [facility] [facility] [place] [address] Consulting Physician Pulmonary Disease 07/08/20 Jean Carlos Berrios MD [address] [place] [address] Referring Physician Obstetrics and Gynecology 02/23/22 Rosa Herr, RN [address] [place] [address] [address] [place] [address] Land Economist 06/03/22 Braden Sherwood DO [address] [facility] [address] [place] [address] Referring Physician Psychiatry 06/04/22 Ladonna Martinez NP [address] [facility] [address] [place] [address] Nurse Practitioner Nurse Practitioner 10/31/23 Kamila Witt NP [address] [facility] [place] [address] Nurse Practitioner Hospice and Palliative Medicine 03/01/24 documented as of this encounter
--- OUTSIDE RECORDS SUMMARY | 2024-11-26 17:14 | XMS_ITS | Encounter Summary ---
Author Organization [facility] Healthcare Address [address] [place] [address] Care Team Providers Care Skidder Runner Name Role Phone Luis Saunders MD Unavailable [phone] Jammie Burdick MD Unavailable [phone] Ervin Garcia MD Unavailable [phone] Haleigh Young MD Primary Care Provi naye Jean Carlos Berrios MD Unavailable [phone] Rosa Herr RN Unavailable [phone] Braden Sherwood DO Unavailable [phone] Ladonna Martinez CLINICAL APPLICATIONS SPECIALIST Unavailable [phone] Kamila Witt NP Unavailable [phone] Reason for Visit * Reason Onset Date Comments Medical Question/Miscellaneous 11/09/2024 Encounter Details Date Type Department Care Team (Late st Contact Info) Description 11/09/2024 Telephone [facility] Medical Group Family Medicine [address] [address] Haleigh Young MD [address] [place] [address] Medical Question/Miscellaneous Social History Tobacco Use [...] materials from doctor or pharmacy Sometimes 09/22/2023 [facility] Utilities Answer Date Recorded In the [...] often do you attend chur ch or anglican services? Never 10/18/2024 Do you belong to any clubs o r organizations such as anabaptism groups, unions, fraternal or athletic groups, or [...] place to sleep or slept in a fpc (including now)? No 10/17/2023 Housing Stability Vital Sign Answer Lucas e Recorded In the last 12 months, was t here a time when you were not able to pay the mortgage or rent on time? No 10/18/2024 In the past 12 months, how m any times have you moved where you were living? 1 10/18/2024 At any time in the past [address] [facility], were you homeless or living in a fpc (including now)? No 10/18/2024 Personal Safety Answer Date Recorded Have you ever been in or are you currently in a harmful physical or emotional relationship or is someone making you feel afraid or unsafe? Denies 10/10/2024 Comments No Sex and Gender Information Value Date Recorded Sex Assigned at Not on file Legal Sex Female 1:41 PM COMMUNITY AMBASSADOR Gender Identity Not on file Sexual Orientation Not on file Occupation Industry Job Start Date Job End Date DISABILITY Not on file Not on file Not on file documented as of this encounter Miscellaneous Notes * Telephone Encounter - Neda Cisneros LPN - 11/09/2024 2:33 PM CST Ardent refused patient, [facility] will not see patient for palliative care. Any other palliative care suggestions? UNITY AMBASSADOR * Telephone Encounter - Elvia Sterling. - 11/09/2024 1:19 PM CST Medical Question/Miscellaneous Caller???s Concern: Kathe with Paliative Care states they have to Decline the Referral the Office sent to them. Does message need to be routed? Yes-Action Needed UNITY AMBASSADOR documented in this encounter Plan of Treatment Not on file documented as of this encounter Goals Goal Patient Goal Type Associated Problems Recent Progress Patient-Stated? Author RIMA General Goal - Patient is knowledgeable about condition when worsening and how to respond ACO Care Management On track(2023 1:13 PM COMMUNITY AMBASSADOR) No Rosa Herr, RN Note: Problem: Knowledge [...] ACO Care Management On track(2024 10:21 AM COMMUNITY AMBASSADOR) No Bev Du LCSW Note: Problem: Need [...] on filedocumented in this encounter Care Teams Skidder Runner Relationship Specialty Start Date End Date Haleigh Young MD [address] [place] [address] PCP - General Family Medicine 11/24/21 Luis Saunders MD Referring Physician Gastroenterology 07/31/18 Jammie Burdick MD Referring Physician Gastroenterology 07/31/18 Ervin Garcia MD [address] [facility] [address] [place] [address] Consulting Physician Pulmonary Disease 07/08/20 Jean Carlos Berrios MD [address] [place] [address] Referring Physician Obstetrics and Gynecology 02/23/22 Rosa Herr RN [address] [place] [address] [address] [place] [address] Supervisor Braiding 06/03/22 Braden Sherwood DO [address] [place], [place] [id number] Referring Physician Psychiatry 06/04/22 Ladonna Martinez NP [address] [place] [address] Nurse Practitioner Nurse Practitioner 10/31/23 Kamila Witt NP [address] [facility] [place] [address] Nurse Practitioner Hospice and Palliative Medicine 03/01/24 documented as of this encounter
--- OUTSIDE RECORDS SUMMARY | 2024-11-26 17:14 | XMS_ITS | Patient Health Summary ---
Author Organization [facility] [employer] Address [address] [facility] [place] [address] Care Team Providers Care Music Industry Intern Name Role Phone Maya Mcclain MD Primary Care Provider [phone] Note from [facility],non-owned Affiliates and Associated Physician Practices is amultiple site organization consisting of ambulatory clinics and hospital sitesin [place], [place], [place] and [place]. This disclosure is being madepursuant to the Care Everywhere program and may not contain all information available regarding this patient. Last updated 18.[facility] Allergies * Codeine(Anaphylaxis,Angioedema,Urticaria,Swelling,Unknown) -High Criticality Medications * [...] mg by mouth 2 times daily * Ewgormjgddt-Xpazdelwn-Uiffyn (TRELEGY ELLIPTA) 100-62.5-25 MCG/INH Inhale 1 puff [...] 11/12/2012) Results * DERMATOPATHOLOGY (10/14/2023 3:33 AM DOOR CUTTER) Case Report Dermatopathology Report Case: [id number] Authorizing Provider: Ketan Sheppard MD Collected: 10/14/2023 03:33 AM Ordering Location: [facility] DermPath Lab Received: 10/17/2023 02:24 PM Pathologist: Ruby Licona MD Specimen: Skin, left buttock 4:27 PM DOOR CUTTER DERMATOPATHOLOGY LABORATORY Final Diagnosis Specimen A. SKIN, left buttock: EPIDERMAL NECROSIS SUGGESTIVE OF EXCORIATION (L98.499) (see microscopic description) 4 4:27 PM [facility] DERMATOPATHOLOGY LABORATORY Clinical History Atopic dermatitis vs contact dermatitis other vs scabies 4 4:27 PM [facility] DERMATOPATHOLOGY LABORATORY Gross Description Specimen A: Received is one formalin filled container labeled with the patient's name and designated left buttock. The specimen consists of a punch biopsy measuring 4x4x4 mm, bisected. Jar 0. 4 4:27 PM [facility] DERMATOPATHOLOGY LABORATORY Microscopic Description Specimen A. SKIN, left buttock: The epidermis is focally necrotic and covered with a scale-crust. There is fibrin at the base. Additional deeper sections were obtained and reviewed. Grocott's methenamine silver (GMS) stain is negative for fungal elements in the sections examined. 4:27 PM [facility] DERMATOPATHOLOGY LABORATORY Disclaimer An external and internal positive and negative controls are appropriate for the histochemical, immunohistochemical and immunofluorescence stain(s) in this case (if any), except where stated explicitly. The performance characteristics of the stain(s) cited in this report were developed and its performance characteristic determined by the Dermatopathology Laboratory at [facility], directed by Dr. Jaylan Cunningham. These tests need not be, and therefore are not, approved by the [place] Food and Drug Administration. The tests are used for clinical purposes. Billing Codes Specimen Charges Stain Charges 17838 1 35940 1 4 4:27 PM [facility] DERMATOPATHOLOGY LABORATORY Embedded Images 4 4:27 PM [facility] DERMATOPATHOLOGY LABORATORY Pathology/Cytolo gy TISSUE SPECIMEN FROM SKIN / Unknown 10/14/2023 3:33 AM DOOR CUTTER 10/17/2023 2:24 PM DOOR CUTTER Ketan Sheppard MD LAB - PATHOLOGY/CYTO LOGY ORDERABLES DERMATOPATHOLOGY LABORATORY [facility] - Department of Dermatology [address], [address] [phone] * CULTURE URINE COMPREHENSIVE (07/09/2014) Only the most recent of2 resultswithin the time period is included. Culture SEE NOTE [facility] ([facility]) Comment: CULTURE, URINE, SPECIAL MICRO NUMBER: [id number] TEST STATUS: FINAL SPECIMEN SOURCE: URINE SPECIMEN QUALITY: ADEQUATE RESULT: No Growth REPORT COMMENT: PREFERRED LAB:->[facility] Test Performed at: [facility] [address] SALMA CAMPBELL MD Urine specimen (specimen) 07/09/2014 07/10/2014 3:51 AM CDT Narrative [facility] ([facility]) - 07/12/2014 8:00 AM CDT Preferred Lab:->[facility] Victor Hugo Li MD LAB - MICROBIOLOGY O RDERABLES Performing Organization Address City/[facility]/ZIP Co de Phone Number [facility] ([facility]) * URINALYSIS - POINT OF CARE (AMB) [facility] (06/19/2014) Glucose UA neg [facility] Bilirubin UA POCT neg [facility] Ketones UA POCT neg [facility] Specific [place] UA 1.010 [facility] Blood Urine POCT neg [facility] pH UA 5.0 [facility] Protein UA neg [facility] Urobilinogen UA neg [facility] Nitrite UA neg [facility] WBC UA neg [facility] Urine specimen (specimen) 06/19/2014 Victor Hugo Li MD LAB - POINT OF CARE ORDERABLES Performing Organization Address [facility] Co de Phone Number [facility] * XR SHOULDER RIGHT 2VW OR MORE (11/12/2012 1:02 PM DOOR CUTTER) Anatomical Region Laterality Modality Upper Extremity Other Impressions 11/12/2012 4:01 PM DOOR CUTTER Impression: No radiographic evidence of bone or joint disease. This report has been dictated by Cornelius Grace M.D. (Resident). I, Dr. JACKIE MEDINA M.D. have personally reviewed and interpreted this examination/study. This report was electronically signed by JACKIE MEDINA M.D. on 11/12/2012 4:01 PM . Narrative 11/12/2012 4:01 PM DOOR CUTTER Exam: Right shoulder, 3 views Date: 11/12/2012 [...] . Mahogany Gibson MD [facility]STIC [facility] Care Teams Music Industry Intern Relationship Specialty Start Date End Date Maya Mcclain MD [address] [place] [phone] PCP - General 10/31/20
--- OUTSIDE RECORDS SUMMARY | 2024-11-26 17:14 | XMS_ITS | Clinical Summary ---
Author Organization [facility] [email or web address] Address [address] [facility] [place] [address] Care Team Providers Care Industrial Safety And Health Specialist Name Role Phone Maya Mcclain MD Primary Care Provider [phone] Source Comments [facility] [email or web address],non-owned Affiliates and Associated Physician Practices is amultiple site organization consisting of ambulatory clinics and hospital sitesin [place], [place], [place] and [place]. This disclosure is being madepursuant to the Care Everywhere program and may not contain all information available regarding this patient. Last updated 18.[email or web address] Allergies Active Allergy Reactions Criticality Noted Date [...] age to complete this topic Care Teams Industrial Safety And Health Specialist Relationship Specialty Start Date End Date aMya Mcclain MD [address] [place] [phone] PCP - General 10/31/20
--- OUTSIDE RECORDS SUMMARY | 2024-11-26 17:14 | XMS_ITS | Referral Summary ---
Author Organization [facility] [employer] Address [address] [facility] [place] [address] Care Team Providers Care Non Clinical Advisor Name Role Phone Maya Mcclain MD Primary Care Provider [phone] Source Comments [facility] [employer],non-owned Affiliates and Associated Physician Practices is amultiple site organization consisting of ambulatory clinics and hospital sitesin [place], [place], [place] and [place]. This disclosure is being madepursuant to the Care Everywhere program and may not contain all information available regarding this patient. Last updated 18.[employer] Allergies Active Allergy Reactions Criticality Noted [...] of Treatment Not on file Care Teams Non Clinical Advisor Relationship Specialty Start Date End Date Maya Mcclain MD [address] [place] [phone] PCP - General 10/31/20
--- OUTSIDE RECORDS SUMMARY | 2024-11-26 17:14 | XMS_ITS | Patient Health Record ---
Author [facility] Address [address] [place] [address] Care Team Providers Care Diesel Engine Operator Name Role Phone Razia Salcedo Primary Care Provider [phone] Jez Giraldo Unavailable [phone] Allergies Allergen (clinical drug ingredient) Drug/Non Drug [...] W/U Status Risk Notes Problem Allergic rhinitis (14628958) Allergic rhinitis (J30.9) Active confirmed Problem Depression (268841379) Depression (F32.9) Active confirmed Problem Menopausal symptom (86133532) Hot flashes due to menopause (N95.1) Active confirmed Problem Osteoarthritis (103894170) Osteoarthritis involving multiple joints on both sides of body (M15.9) Active confirmed Problem Cervical arthritis (733775815) Cervical arthritis (M46.92) Active confirmed Problem Iron deficiency anemia (82817512) Iron deficiency anemia, unspecified (D50.9) 0 confirmed Young Problem Morbid obesity (946030414) Morbid (severe) obesity due to excess calories (E66.01) 0 confirmed Young Problem Bipolar disorder (88828603) Bipolar disorder, unspecified (F31.9) 0 confirmed Young Problem Anxiety disorder (818467650) Anxiety disorder, unspecified (F41.9) 0 confirmed Young Problem Chronic obstructive pulmonary disease (22042415) Chronic obstructive pulmonary disease, unspecified (J44.9) 0 confirmed Young Problem Gastro-esophageal reflux disease with esophagitis (722115808) Gastro-esophageal reflux disease with esophagitis (K21.0) 0 confirmed Young Problem Peptic ulcer without haemorrhage AND without perforation (40149740) Peptic ulcer, site unspecified, unspecified as acute or chronic, without hemorrhage or perforation (K27.9) 0 confirmed Young Problem 74375973 Other and unspecified hyperlipidemia (E78.5) 0 confirmed Young Problem 55397634 Vitamin D deficiency (E55.9) 0 confirmed Oyung Problem 27749621 Lumbar disc disorder (M51.9) 0 confirmed Young Plan Of Treatment Pending Test Test Name Order Date Urinalysis, Routine 07/23/2016 REFLEXIVE URINE CULTURE 07/23/2016 Insurance Providers Payer Name Payer Address Payer Phone Subscriber Number Group Number Insured Name Patient Relationship to Insured Coverage Start Date Coverage End Date [facility] [employer] PPO [address] [address] [place] [address] [phone] [id number] Dipti Luna Self - patient is the insured 6 Medical (General) History Medical History History ICD Code Tonsillectomy Alcoholism Anxiety TAHBSO Right Rotator Cuff Tendinopathy PUD Iron Deficiency Anemia Vitamin D Deficiency Bladder Sling Borderline Diabetes Mellitus COPD
--- OUTSIDE RECORDS SUMMARY | 2024-11-26 17:14 | XMS_ITS | Clinical Summary ---
Author Organization [facility] Address [address] [place] [address] Care Team Providers Care Recreational Assistant Name Role Phone Luis Saunders MD Unavailable [phone] Jammie Burdick MD Unavailable [phone] Ervin Garcia MD Unavailable Haleigh Young MD Primary Care Provi naye Jean Carlos Berrios MD Unavailable [phone] Rosa Herr RN Unavailable [phone] Braden Sherwood DO Unavailable [phone] Ladonna Martinez AIRCRAFT SYSTEMS TECHNICIAN Unavailable Kamila Witt NP Unavailable [phone] Allergies Active Allergy Reactions Criticality Noted Date [...] 01/28/2024 Assessment & Plan (07/27/2024 3:57 PM MARINE ENGINE MECHANIC): Symptom duration 2 weeks Recent covid, flu [...] 11/01/2023 Assessment & Plan (11/01/2023 10:01 AM MARINE ENGINE MECHANIC): Chronic, persistent Encouraged to follow up with pain management Encouraged to update me after the visit Continue lyrica as prescribed Urinary incontinence 11/01/2023 Assessment & Plan (11/01/2023 10:05 AM MARINE ENGINE MECHANIC): Chronic, persistent Will place referral to urology for guidance Update me after the visit Incontinence of feces with fecal urgency Assessment & Plan (11/01/2023 10:02 AM MARINE ENGINE MECHANIC): Chronic, persistent Encouraged to follow up with Dr Burdick Update me after the visit Call for questions Chronic respiratory failure with hypoxia Assessment & Plan (06/28/2024 11:25 AM CDT): Chronic. Stable. Continue supplemental oxygen, 2 L. continue to follow with pulmonology. Assessment & Plan (04/12/2024 1:17 PM CDT): Chronic, persistent Oxygen level improved today Will reach out to her petroleum refinery operator given her numbers, I do worry her [...] was reviewed with the patient and her insulation installer Assessment & Plan (02/09/2024 11:30 AM CDT): [...] 01/26/2022 Assessment & Plan (10/29/2024 1:54 PM MARINE ENGINE MECHANIC): BMI Follow-up includes: education provided. Assessment & Plan (10/17/2024 12:08 PM MARINE ENGINE MECHANIC): Chronic, stable BMI Follow-up includes: Encouraged healthy [...] and cardizem Continue to follow with her skilled labor Update me with any changes Call for [...] 11/24/2021 Assessment & Plan (11/01/2023 10:01 AM MARINE ENGINE MECHANIC): Chronic, persistent Encouraged to follow up with [...] PM CDT): Chronic, stable Continue valtrex through BIOMEDICAL INSTRUMENT TECHNICIAN History of Lena fundoplication 08/17/2021 History of [...] Continue Doug Set up follow-up with her skilled labor as well Update me with any changes Call for questions or concerns Assessment & Plan (05/21/2022 6:17 PM CDT): With SVT during her hospital stay at [facility] Continue doug Encouraged follow up with [...] monitor Assessment & Plan (09/16/2020 3:02 PM MARINE ENGINE MECHANIC): Unclear etiology She is not specific on [...] pt Assessment & Plan (09/16/2020 3:01 PM MARINE ENGINE MECHANIC): Currently only taking effexor contineu current management Assessment & Plan (07/15/2020 8:50 AM MARINE ENGINE MECHANIC): We will start lyrica 150 mg BID [...] groups. Assessment & Plan (11/01/2023 10:06 AM MARINE ENGINE MECHANIC): Chronic, worse Encouraged to reach out to [...] concerns Assessment & Plan (07/15/2020 8:48 AM MARINE ENGINE MECHANIC): We will continue this current regime, she [...] 07/08/2020 Assessment & Plan (11/01/2023 10:01 AM MARINE ENGINE MECHANIC): Chronic, persistent Encouraged to follow up with [...] of lumbar spine. Continue pain management with Rico 5/325 mg q.6 p.r.n., lidocaine patch, Flexeril 5 mg t.i.d. p.r.n.. PT/OT care. Patient need to follow up with Dr. Delatorre outpatient Assessment & Plan (11/24/2021 10:34 AM CDT): Will check xray We discussed PT- she is unable to afford it She is going home exercises Continue supportive care Further guidance once we have the results Assessment & Plan (07/15/2020 8:48 AM MARINE ENGINE MECHANIC): Recommend THC, we will seek out a [...] questions Assessment & Plan (07/15/2020 8:49 AM MARINE ENGINE MECHANIC): Remeron and effecor Taking only 150 mg [...] (09/07/2018): Added automatically from request for surgery [id number] Assessment & Plan (03/29/2023 4:54 PM CDT): [...] inhalers Assessment & Plan (09/16/2020 3:02 PM MARINE ENGINE MECHANIC): Continue seeing pulm head up operator antibiotic and steroids Assessment & Plan (07/08/2020 8:35 AM CDT): Continue to follow-up with pulm History of aspiration pneumonia 05/18/2018 Iron deficiency anemia, unspecified 03/20/2018 Assessment & Plan (11/01/2023 10:09 AM MARINE ENGINE MECHANIC): Chronic, stable Managed by heme/onc Update me [...] has a call in to the new skilled labor to see if she can follow-up sooner [...] CDT): Now uses vaping Chronic bullous emphysema ([facility]/HCC) 10/26/2016 Overview (12/17/2016): Bullous emphysema Assessment [...] Garcia Assessment & Plan (07/15/2020 8:47 AM MARINE ENGINE MECHANIC): Likely resulting in her SOB with the change in medications Continue inhaler and seeing pulm History of gastric ulcer 08/04/2015 Assessment & Plan (03/29/2023 4:54 PM CDT): Resolved Continue Nexium Update me with changes or concerns Continue to follow with GI History of fall Spinal stenosis of lumbar region at multiple lev els Assessment & Plan (11/01/2023 10:02 AM MARINE ENGINE MECHANIC): Chronic, persistent Encouraged to follow up with [...] (05/30/2022): Added automatically from request for surgery [id number] Diverticulitis large intesti ne w/o perforation or [...] CDT): Chronic, persistent Labs reviewed from her plastic printer Referral to hematology pending Update me after [...] (09/07/2018): Added automatically from request for surgery [id number] Gastric ulcer 08/04/2015 03/29/2023 Encounters Date Type Department Care Team Description 11/26/2024 Nurse Triage [address] [phone] Haleigh Young MD 11/23/2024 Nurse Triage [address] [phone] Haleigh Young MD 11/23/2024 Telephone [facility] Pulmonology [address] [place] [address] [place] [phone] Syl Jaimes, MIRTA 11/19/2024 Orders Only [address] [phone] Haleigh Young MD Chronic respiratory failure with hypoxia (HCC) (Primary Dx) 11/14/[address] [phone] Haleigh Young MD Medical Question/Miscellaneo us 11/09/[address] [phone] Haleigh Young MD Medical Question/Miscellaneo us 10/29/2024 1:30 PM MARINE ENGINE MECHANIC Office Visit [address] [phone] Heather Arteaga PA Acute bilateral lower abdominal pain (Primary Dx); Chronic bullous emphysema (CMS/HCC) (HCC); Chronic respiratory failure with hypoxia (HCC); Class 1 obesity due to excess calories with serious comorbidity and body mass index (BMI) of 30.0 to 30.9 in adult 10/29/2024 Orders Only [address] [phone] Haleigh Young MD Chronic respiratory failure with hypoxia (HCC) (Primary Dx) 10/29/[address] [phone] Haleigh Young MD 10/24/2024 10:55 AM MARINE ENGINE MECHANIC Lab [facility] Medical Office Building [address] [place] [id number] Hyperglycemia; Iron deficiency anemia due to chronic blood loss 10/24/2024 10:30 AM MARINE ENGINE MECHANIC Office Visit [facility] Pulmonary [address] [place] [phone] Ervin Garcia MD Chronic obstructive pulmonary disease, unspecified COPD type (HCC) (Primary Dx); PEREZ (dyspnea on exertion); Chronic respiratory failure with hypoxia (HCC) 10/17/2024 10:45 AM MARINE ENGINE MECHANIC Office Visit [address] [phone] Haleigh Young MD Narcotic dependence (HCC) (Primary Dx); Benzodiazepine dependence (HCC); Generalized anxiety disorder; Iron deficiency anemia due to chronic blood loss; Hyperglycemia; Class 1 obesity due to excess calories with serious comorbidity and body mass index (BMI) of 32.0 to 32.9 in adult 10/16/2024 [facility] ED Outreach [facility] [address] [place] [address] Sally Castañeda MA 10/15/2024 Nurse Triage [address] [phone] Haleigh Young MD 10/12/2024 Orders Only [facility] [address] [phone] Heather Arteaga PA 10/12/2024 [facility] ED Outreach [facility] Accountable Care Organization [address] [place] [address] Sally Castañeda MA 10/11/2024 3:06 AM MARINE ENGINE MECHANIC - 10/11/2024 7:25 AM [facility] Emergency Department [address] [place] [address] Jean Claude Matta Jr., MD Paruchuri, Tharun, MD Narcotic dependence (HCC) (Primary Dx); Benzodiazepine dependence (HCC); Atypical chest pain; End stage COPD (HCC); Palliative care patient Discharge Disposition: Discharge to home or self care 10/11/2024 Telephone [facility] Pall[facility] Care [address] [place] [phone] Kamila Witt NP 10/11/2024 Orders Only Hospitalists [address] [facility] [address] [facility] [place] [address] Manuelito Baltazar MD 10/11/[address] [phone] Haleigh Young MD Med Refill 10/11/2024 Telephone [facility] [address] [phone] Haleigh Young MD Appointment Request 10/10/2024 Documentation [facility] Palliative Care [address] [place] [phone] Kamila Witt NP 10/02/2024 Orders Only [facility] Palliative Care [address] [place] [phone] Kamila Witt NP Chronic bilateral low back pain with bilateral sciatica; Spinal stenosis of lumbar region at multiple levels 09/26/2024 Telephone [facility] [address] [phone] Haleigh Young MD Poor Memory/Concentration 09/24/2024 Telephone [facility] [address] [phone] Haleigh Young MD 09/23/2024 5:01 AM [facility] - 09/23/2024 11:05 AM [facility] Emergency [facility] Emergency Department [address] [place] [address] Sushant Ramirez DO Medication refill (Primary Dx); Chronic pain syndrome; Chronic bilateral low back pain with bilateral sciatica; Spinal stenosis of lumbar region at multiple levels; Hypoglycemia Discharge Disposition: Discharge to home or self care 09/22/2024 Telephone [facility] Palliative Care [address] [place] [phone] Kamila Witt NP 09/18/2024 Orders Only [facility] Palliative Care [address] [place] [phone] Kamila Witt NP COPD exacerbation (HCC) (Primary Dx) 09/10/2024 Orders Only [facility] Palliative Care [address] [place] [phone] Kamila Witt NP Chronic bilateral low back pain with bilateral sciatica; Spinal stenosis of lumbar region at multiple levels 09/07/2024 1:35 PM [facility] - 09/07/2024 1:45 PM [facility] Emergency Department [address] [place] [address] Discharge Disposition: Left without being seen 09/06/[address] [phone] Haleigh Young MD Shortness of Breath 08/30/2024 Telephone [facility] [address] [facility] [address] [place] [address] Ervin Garcia MD Sick Call [...] 09/07/2018 Added automatically from request for surgery [id number] Community acquired pneumonia, bilateral 08/17/20 Diverticulitis Kidney [...] materials from doctor or pharmacy Sometimes 09/22/2023 [facility] Utilities Answer Date Recorded In the past 12 months has th e [employer], gas, oil, or water [employer] threatened to shut off services in your [...] week 10/18/2024 How often do you attend [facility] or [facility] services? Never 10/18/2024 Do you belong to [...] place to sleep or slept in a assisted (including now)? No 10/17/2023 Housing Stability Vital Sign Answer Lucas e Recorded In the last 12 months, was t here a time when you were not able to pay the mortgage or rent on time? No 10/18/2024 In the past 12 months, how m any times have you moved where you were living? 1 10/18/2024 At any time in the past 12 m [facility], were you homeless or living in a assisted (including now)? No 10/18/2024 Personal Safety Answer Date Recorded Have you ever been in or are you currently in a harmful physical or emotional relationship or is someone making you feel afraid or unsafe? Denies 10/10/2024 Comments No Sex and Gender Information Value Date Recorded Sex Assigned at Not on file Legal Sex Female 1:41 PM MARINE ENGINE MECHANIC Gender Identity Not on file Sexual Orientation [...] Comments Blood Pressure 124/78 10/29/2024 1:23 PM MARINE ENGINE MECHANIC Pulse 97 10/29/2024 1:23 PM MARINE ENGINE MECHANIC Temperature 36.7 C (98.1 F) 10/29/2024 1:23 PM MARINE ENGINE MECHANIC Respiratory Rate 16 10/29/2024 1:23 PM MARINE ENGINE MECHANIC Oxygen Saturation 98% 10/29/2024 1:23 PM MARINE ENGINE MECHANIC Inhaled Oxygen Concentration - - Weight 80.7 kg (178 lb) 10/29/2024 1:23 PM MARINE ENGINE MECHANIC Height 162.6 cm (5' 4 ) 10/29/2024 1:23 PM MARINE ENGINE MECHANIC Body Mass Index 30.55 10/29/2024 1:23 PM MARINE ENGINE MECHANIC Plan of Treatment Health Maintenance Due Date [...] ACO Care Management On track(2023 1:13 PM MARINE ENGINE MECHANIC) Rosa Gu, RN Note: Problem: Knowledge deficit [...] ACO Care Management On track(2024 10:21 AM MARINE ENGINE MECHANIC) No Bev Du LCSW Note: Problem: Need for Community Resources Interventions: - Provide patient/family with a list of appropriate resources for their specific need. - Help to coordinate resources. - Follow up to ensure patient/family has connected with the appropriate resources / personnel. CCM Chronic Pain Care Plan Chronic Care Management No Manjula Caal AIRCRAFT SYSTEMS TECHNICIAN Note: Problem: Chronic Pain Goals: 1. Minimize further functional decline 2. Maximize quality of life 3. Control pain Strategies: - Activity/exercise program recommendation - Conservative stepwise pain medicine strategy with multi-disciplinary approach - Recommend healthy lifestyle strategies and compensatory methods as needed Medical Devices Implanted Type Area Courtesy Bus Driver Device Identifier Shelf Expiration Date Model / Serial / Lot Left Foot Screws Foot Procedures Procedure Name Priority Date/Time Associated Diagnosis Comments ALBUMIN CREATININE RATIO, URINE Routine 10/24/2024 11:10 AM MARINE ENGINE MECHANIC Hyperglycemia IRON PROFILE W/ IBC Routine 10/24/2024 1 1:07 AM MARINE ENGINE MECHANIC Iron deficiency anemia due to chronic blood loss HEMOGLOBIN A1C Routine 10/24/2024 11:07 AM MARINE ENGINE MECHANIC Hyperglycemia TROPONIN T HIGH-SENSITIVITY 2-HOUR Timed 10/10/2024 9:50 PM MARINE ENGINE MECHANIC XR CHEST 1 VIEW ED 10/10/2024 8:17 PM MARINE ENGINE MECHANIC ECG 12-LEAD STAT 10/10/2024 8:07 PM MARINE ENGINE MECHANIC EGFR STAT 10/10/2024 7:55 PM MARINE ENGINE MECHANIC DIFFERENTIAL AUTO STAT 10/10/2024 7:5 5 PM MARINE ENGINE MECHANIC TROPONIN T HIGH-SENSITIVITY SERIES (BASELINE, 2HR, 4HR, 6HR) STAT 10/10/2024 7:55 PM MARINE ENGINE MECHANIC COMPREHENSIVE METABOLIC PANEL STAT 10/10/2024 7:55 PM MARINE ENGINE MECHANIC CBC WITH AUTO DIFFERENTIAL STAT 10/10/2024 7:55 PM MARINE ENGINE MECHANIC POCT GLUCOSE DEVICE Routine 09/23/2024 1 0:55 AM MARINE ENGINE MECHANIC POCT GLUCOSE DEVICE Routine 09/23/2024 9 :09 AM MARINE ENGINE MECHANIC POCT GLUCOSE DEVICE Routine 09/23/2024 8 :39 AM MARINE ENGINE MECHANIC POCT GLUCOSE DEVICE Routine 09/23/2024 7 :57 AM MARINE ENGINE MECHANIC POCT GLUCOSE DEVICE Routine 09/23/2024 7 :07 AM MARINE ENGINE MECHANIC URINALYSIS AND REFLEX TO MICROSCOPIC AND CULTURE STAT 09/23/2024 6:06 AM MARINE ENGINE MECHANIC EGFR STAT 09/23/2024 5:06 AM MARINE ENGINE MECHANIC DIFFERENTIAL AUTO STAT 09/23/2024 5:0 6 AM MARINE ENGINE MECHANIC COMPREHENSIVE METABOLIC PANEL STAT 09/23/2024 5:06 AM MARINE ENGINE MECHANIC CBC WITH AUTO DIFFERENTIAL STAT 09/23/2024 5:06 AM MARINE ENGINE MECHANIC POCT GLUCOSE DEVICE Routine 09/23/2024 5 :04 AM MARINE ENGINE MECHANIC DIAGNOSTIC MAMMOGRAM BILATERAL W SUKUMAR Schedule Routine, Read Routine (OP Routine) 04/09/2024 8:33 AM CDT Follow-up examination of abnormal mammogram COLONOSCOPY 10/28/2023 3:01 PM MARINE ENGINE MECHANIC HEPATITIS C ANTIBODY Routine 08/09/2023 1:28 PM MARINE ENGINE MECHANIC DEXA AXIAL SKELETON BONE DENSITY 1 OR [...] Albumin Creatinine Ratio, Urine (10/24/2024 11:10 AM MARINE ENGINE MECHANIC) Albumin Ur <12.0 mg/L Comment: Interpretive Data No reference range established. Current interpretive data was last revised 2019. Testing performed by: [address] [address] Creatinine Ur 33.4 mg/dL [facility] Comment: Interpretive Data No reference range established. Current interpretive data was last revised 2019. Testing performed by: [address] [address] Albumin Creatinine Ratio, Ur <36(H) 1 - 29 mg/g [facility] Comment:Testing performed by : [address] [address] Urine 10/24/2024 11:1 0 AM MARINE ENGINE MECHANIC 10/24/2024 11:54 AM MARINE ENGINE MECHANIC us Haleigh Young MD LAB URINE ORDERABLE S Final Result [facility] [address] [facility] Department [place] [address] * (ABNORMAL) Iron profile w/ IBC (10/24/2024 11:07 AM MARINE ENGINE MECHANIC) Pathologist [facility] Iron 45 35 - 145 mcg/dL Comment:Testing performed by : [address] [address] TIBC 271 250 - 400 mcg/dL [facility] Comment:Testing performed by : [address] [address] Transferrin saturation 17(L) 20 - 50 % [facility] Comment:Testing performed by : [address] [address] Blood 10/24/2024 11:0 7 AM MARINE ENGINE MECHANIC 10/24/2024 11:53 AM MARINE ENGINE MECHANIC Haleigh Young MD LAB BLOOD ORDERABLE S Final Result Performing Organization Address [facility] Co de Phone Number [facility] [place] [address] * Hemoglobin A1c (10/24/2024 11:07 AM MARINE ENGINE MECHANIC) Pathologist [facility] Hgb A1C 5.4 4.0 - 5.6 % Comment:Testing performed by : [address] [address] Estimated Average Glucose 108 mg/dL [facility] Comment: The ADA recommends reporting an estimated Average Glucose (eAG) with all Hemoglobin A1c results using the equation derived from a study of 507 normal and diabetic adults. Minority populations were underrepresented and children were not included. (Diabetes Care 31:7866-8045, 2008). The eAG is not equivalent to a fasting glucose. Testing performed by: [address] [address] Blood 10/24/2024 11:0 7 AM MARINE ENGINE MECHANIC 10/24/2024 11:57 AM MARINE ENGINE MECHANIC us Haleigh Young MD LAB BLOOD ORDERABLE S Final Result Performing Organization Address City/[facility] Co de Phone Number [facility] Department [place] [address] * Troponin T high-sensitivity 2-hour (10/10/2024 9:50 PM MARINE ENGINE MECHANIC) Pathologist [facility] Trop T hs 10 <=14 ng/L Comment: Interpretive Data For further hscTnT resources including the diagnostic algorithm and an aid in interpretation, copy and paste this link: https://nrl.testcatalog.org/show/hsTrop Current Interpretive Data last revised 2020. Testing performed by: [facility], [address] [place] [address]., [address] Trop T hs delta -1 ng/L [facility] Comment:Testing performed by : [facility], [address] [place] [address]., [address] Trop T hs interp Insignificant [facility] Comment:Testing performed by : [address] [address] Blood 10/10/2024 9:50 PM MARINE ENGINE MECHANIC 10/10/2024 10:02 PM MARINE ENGINE MECHANIC us Jean Claude Matta Jr., MD LAB BLOOD ORDERABLES Fi nal Result [facility] [address] [facility] Department [place] [address] * XR Chest 1 Vw Portable (if patient condition/safety warrant portable) (10/10/2024 8:17 PM MARINE ENGINE MECHANIC) Anatomical Region Laterality Modality Body, Chest N/A Computed Radiogr aphy 10/10/2024 9:08 PM MARINE ENGINE MECHANIC Narrative 10/10/2024 9:11 PM MARINE ENGINE MECHANIC EXAM DESCRIPTION: XR CHEST 1 VIEW REASON [...] Ac Mcdonald M.D. NS: NS Report ID: [id number] Reading Location: [id number] Procedure Note Ac Mcdonald MD - 10/10/2024 [...] Ac Mcdonald M.D. NS: NS Report ID: [id number] Reading Location: [id number] Jean Claude Matta Jr., MD IMG XR PROCEDURES Final Result * ECG 12 lead (10/10/2024 8:07 PM MARINE ENGINE MECHANIC) Ventricular Rate EKG/Min 79 BPM [facility] Atrial Rate 79 BPM [facility] TX-Interval (MSEC) 170 ms [facility] QRS-Interval (MSEC) 72 ms [facility] QT-Interval (MSEC) 398 ms [facility] QTc 456 ms [facility] P [place] 57 degrees [facility] R [place] 21 degrees [facility] T [place] 27 degrees [facility] Diagnosis Normal sinus rhythm Normal ECG When compared with ECG of 03-FEB-2024 18:59, No significant change was found Confirmed by LYNDSAY GARLAND M.D. ([id number]) on 10/12/2024 12:10:20 PM [facility] 10/10/2024 8:07 PM MARINE ENGINE MECHANIC 10/12/2024 12:10 PM MARINE ENGINE MECHANIC us Jean Claude Matta Jr., MD ECG ORDERABLES Final R esult Performing Organization Address [facility] Co de Phone Number [facility] * Troponin T high-sensitivity series (baseline, 2hr, 4hr, 6hr) (10/10/2024 7:55 PM MARINE ENGINE MECHANIC) [facility] Trop T hs 11 <=14 ng/L Comment: Interpretive Data For further hscTnT resources including the diagnostic algorithm and an aid in interpretation, copy and paste this link: https://nrl.testcatalog.org/show/hsTrop Current Interpretive Data last revised 2020. Testing performed by: [facility], [address] [place] [address]., [address] Blood 10/10/2024 7:55 PM MARINE ENGINE MECHANIC 10/10/2024 8:03 PM MARINE ENGINE MECHANIC us Jean Claude Matta Jr., MD LAB BLOOD ORDERABLES Fi nal Result [facility] [address] [facility] Department [place] [address] * eGFR (10/10/2024 7:55 PM MARINE ENGINE MECHANIC) [facility] eGFR >90 >=60 mL/min/1. 73 m2 Comment: [...] was last reviewed 2021. Testing performed by: [address] [address] Blood 10/10/2024 7:55 PM MARINE ENGINE MECHANIC 10/10/2024 8:03 PM MARINE ENGINE MECHANIC us Jean Claude Matta Jr., MD LAB BLOOD ORDERABLES nal Result [facility] [address] [facility] Department [place] [address] * Differential, auto (10/10/2024 7:55 PM MARINE ENGINE MECHANIC) Neutrophil abs 4.6 1.5 - 6.5 K/cumm Comment:Testing performed by : [address] [address] Imm gran abs 0.0 0.0 - 0.1 K/cumm [facility] Comment:Testing performed by : [address] [address] Lymphocyte abs 1.5 0.8 - 3.3 K/cumm [facility] Comment:Testing performed by : [address] [address] Monocyte abs 0.7 0.2 - 0.8 K/cumm [facility] Comment:Testing performed by : [address] [address] Eosinophil abs 0.3 0.0 - 0.5 K/cumm [facility] Comment:Testing performed by : [address] [address] Basophil abs 0.0 0.0 - 0.1 K/cumm [facility] Comment:Testing performed by : [address] [address] Neutrophil pct 64.8 % [facility] Comment: Interpretive Data Percent cell count reference ranges are not reported, since discordance with absolute values may lead to misinterpretation of CBC data. Current Interpretive Data was last revised on 2017. Testing performed by: [address] [address] Imm gran pct 0.4 % [facility] Comment: Interpretive Data Percent cell count reference ranges are not reported, since discordance with absolute values may lead to misinterpretation of CBC data. Current Interpretive Data was last revised on 2017. Testing performed by: [address] [address] Lymphocyte pct 20.8 % [facility] Comment: Interpretive Data Percent cell count reference ranges are not reported, since discordance with absolute values may lead to misinterpretation of CBC data. Current Interpretive Data was last revised on 2017. Testing performed by: [address] [address] Monocyte pct 9.4 % [facility] Comment: Interpretive Data Percent cell count reference ranges are not reported, since discordance with absolute values may lead to misinterpretation of CBC data. Current Interpretive Data was last revised on 2017. Testing performed by: [address] [address] Eosinophil pct 4.2 % [facility] Comment: Interpretive Data Percent cell count reference ranges are not reported, since discordance with absolute values may lead to misinterpretation of CBC data. Current Interpretive Data was last revised on 2017. Testing performed by: [address] [address] Basophil pct 0.4 % [facility] Comment: Interpretive Data Percent cell count reference ranges are not reported, since discordance with absolute values may lead to misinterpretation of CBC data. Current Interpretive Data was last revised on 2017. Testing performed by: [address] [address] Blood 10/10/2024 7:55 PM MARINE ENGINE MECHANIC 10/10/2024 8:03 PM MARINE ENGINE MECHANIC us Jean Claude Matta Jr., MD LAB BLOOD ORDERABLES Fi nal Result [facility] [address] [facility] Department [place] [address] * (ABNORMAL) CBC with auto differential (10/10/2024 7:55 PM MARINE ENGINE MECHANIC) WBC 7.1 3.8 - 9.9 K/cumm Comment:Testing performed by : [address] [address] Hgb 10.9(L) 11.9 - 15.5 g/dL [facility] HOLT Comment:Testing performed by : [address] [address] Hct 37.0 35.6 - 45.5 % [facility] HOLT Comment:Testing performed by : [address] [address] Plt 355 150 - 400 K/cumm [facility] HOLT Comment:Testing performed by : [address] [address] MPV 10.5 9.1 - 12.3 fL [facility] Comment:Testing performed by : [address] [address] RBC 5.01 3.90 - 5.20 M/cumm [facility] HOLT Comment:Testing performed by : [address] [address] MCV 73.9(L) 81.3 - 96.4 fL [facility] HOLT Comment:Testing performed by : [address] [address] MCH 21.8(L) 27.1 - 33.3 pg [facility] HOLT Comment:Testing performed by : [address] [address] MCHC 29.5(L) 32.3 - 35.7 g/dL [facility] HOLT Comment:Testing performed by : [address] [address] RDW CV 17.1(H) 11.1 - 14.9 % [facility] HOLT Comment:Testing performed by : [address] [address] RDW SD 44.8 35.7 - 48.1 fL [facility] HOLT Comment:Testing performed by : [address] [address] NRBC abs 0.00 0.00 - 0.01 K/cumm [facility] HOLT Comment:Testing performed by : [address] [address] Blood Venous blood specimen / Unknown 10/10/2024 7:55 PM MARINE ENGINE MECHANIC 10/10/2024 8:03 PM MARINE ENGINE MECHANIC us Jean Claude Matta Jr., MD LAB BLOOD ORDERABLES Fi nal Result [facility] [address] [facility] Department of Laboratories [place], [place] [id number] * (ABNORMAL) Comprehensive metabolic panel (10/10/2024 7:55 PM MARINE ENGINE MECHANIC) Sodium 136 135 - 145 mmol/L Comment:Testing performed by : [address] [address] Potassium, pl 3.3 3.3 - 4.9 mmol/L [facility] HOLT Comment: Hemolyzed; Potassium value may be falsely elevated by as much as 1.0 mmol/L. Suggest redraw and reanalysis. Testing performed by: [address] [address] Chloride 99 97 - 110 mmol/L [facility] HOLT Comment:Testing performed by : [address] [address] CO2 23 22 - 32 mmol/L [facility] HOLT Comment:Testing performed by : [address] [address] Anion gap 14 2 - 15 mmol/L [facility] Comment:Testing performed by : [address] [address] BUN 4(L) 6 - 25 mg/dL [facility] Comment:Testing performed by : [address] [address] Creatinine 0.69 0.60 - 1.10 mg/dL [facility] Comment:Testing performed by : [address] [address] Glucose 118 70 - 199 mg/dL ROSALBA [...] was last revised 2022. Testing performed by: [address] [address] Calcium 9.7 8.5 - 10.3 mg/dL [facility] Comment:Testing performed by : [address] [address] Bilirubin, total 0.4 0.1 - 1.2 mg/dL [facility] Comment:Testing performed by : [address] [address] Protein, pl 7.0 6.5 - 8.5 g/dL [facility] Comment:Testing performed by : [address] [address] Albumin 3.7 3.5 - 5.0 g/dL [facility] Comment:Testing performed by : [address] [address] Alk phos 124 40 - 130 Units/L [facility] Comment:Testing performed by : [address] [place]., [address] ALT 16 7 - 45 Units/L [facility] Comment:Testing performed by : [address] [address] AST 18 10 - 45 Units/L [facility] Comment: Hemolyzed; result may be falsely elevated Testing performed by: [address] [address] Blood 10/10/2024 7:55 PM MARINE ENGINE MECHANIC 10/10/2024 8:03 PM MARINE ENGINE MECHANIC Jean Claude Matta Jr., MD LAB BLOOD ORDERABLES Fi nal Result Performing Organization Address [facility] de Phone Number [address] [place] [address] * POCT glucose (09/23/2024 10:55 AM MARINE ENGINE MECHANIC) Glucose, POC 92 70 - 199 mg/dL Comment:Testing performed by : [address], [address] Glucose comment 1 Use This Result [facility] Comment:Testing performed by : [address] [address] Blood 09/23/2024 10:5 5 AM MARINE ENGINE MECHANIC 09/23/2024 10:55 AM MARINE ENGINE MECHANIC Sushant Ramirez DO LAB POCT ORDERABLES - DEVICE F inal Result Performing Organization Address [facility] de Phone Number [address] [place] [address] * POCT glucose (09/23/2024 9:09 AM MARINE ENGINE MECHANIC) Glucose, POC 103 70 - 199 mg/dL Comment:Testing performed by : [address] [address] Glucose comment 1 Use This Result [facility] Comment:Testing performed by : [address] [address] Blood 09/23/2024 9:09 AM MARINE ENGINE MECHANIC 09/23/2024 9:09 AM MARINE ENGINE MECHANIC Sushant [employer]points LAB POCT ORDERABLES - DEVICE F inal Result Performing Organization Address [facility] Co de Phone Number [facility] [place] [address] * POCT glucose (09/23/2024 8:39 AM MARINE ENGINE MECHANIC) Glucose, POC 96 70 - 199 mg/dL Comment:Testing performed by : [address] [address] Glucose comment 1 Use This Result [facility] Comment:Testing performed by : [address] [address] Blood 09/23/2024 8:39 AM MARINE ENGINE MECHANIC 09/23/2024 8:39 AM MARINE ENGINE MECHANIC Sushant [employer] LAB POCT ORDERABLES - DEVICE F inal Result Performing Organization Address [facility] de Phone Number BARBARA[address] [address] * POCT glucose (09/23/2024 7:57 AM MARINE ENGINE MECHANIC) Glucose, POC 91 70 - 199 mg/dL Comment:Testing performed by : [address] [address] Glucose comment 1 Use This Result [facility] Comment:Testing performed by : [address] [address] Blood 09/23/2024 7:57 AM MARINE ENGINE MECHANIC 09/23/2024 7:57 AM MARINE ENGINE MECHANIC Sushant [employer] LAB POCT ORDERABLES - DEVICE F inal Result Performing Organization Address [facility] Co de Phone Number [facility] [place] [address] * (ABNORMAL) POCT glucose (09/23/2024 7:07 AM MARINE ENGINE MECHANIC) Glucose, POC 49(C) 70 - 199 mg/dL Comment:Testing performed by : [address] [address] Glucose comment 1 Use This Result [facility]BA HOLT Comment:Testing performed by : [address] [address] Blood 09/23/2024 7:07 AM MARINE ENGINE MECHANIC 09/23/2024 7:07 AM MARINE ENGINE MECHANIC us Sushant Aidanrukhsana DO LAB POCT ORDERABLES - DEVICE F inal Result [facility] [address] [facility] Department [place] [address] * Urinalysis reflex to microscopic and culture Urine (09/23/2024 6:06 AM MARINE ENGINE MECHANIC) Color, ur Straw Yellow Comment:Testing performed by : [address] [address] Clarity, ur Clear Clear [facility]BA Comment:Testing performed by : [address] [address] Specific gravity, ur 1.009 1.003 - 1.030 [facility] Comment:Testing performed by : [address] [address] pH, urine 6.5 [facility] Comment: Interpretive Data U rine pH is affected by diet, medications, systemic acid-base disturbances, and renal tubular function. pH may affect urinary stone formation. For example, urine pH below 6.0 may help reduce the tendency for calcium phosphate stones and pH greater than 6.0 may reduce the tendency for uric acid stone formation. Source: [employer] Current Interpretive Data was last revised on 2017 Testing performed by: [address] [address] Protein, ur ql Negative Negative [facility] HOLT Comment:Testing performed by : [address] [address] Glucose, ur ql Negative Negative [facility] HOLT Comment:Testing performed by : [place] [address], [place]., [address] Ketones, ur Negative Negative [facility] Comment:Testing performed by : [address], [place]., [address] Bilirubin, ur Negative Negative [facility] Comment:Testing performed by : [address], [place]., [address] Blood, ur Negative Negative [facility] Comment:Testing performed by : [address], [place]., [address] Urobilinogen, ur <2.0 <2.0 mg/dL [facility] Comment:Testing performed by : [address], [place]., [address] Nitrite, ur Negative Negative [facility] Comment:Testing performed by : [address], [place]., [address] Leukocyte esterase, ur Negative Negative [facility] Comment:Testing performed by : [address], [place]., [address] UA reflex comment Reflex conditions for microscopic UA and culture not met. [facility] Comment:Testing performed by : [address], [place]., [address] Urine 09/23/2024 6:06 AM MARINE ENGINE MECHANIC 09/23/2024 6:09 AM MARINE ENGINE MECHANIC us Jean Claude Matta Jr., MD LAB MICROBIOLOGY - GENE RAL ORDERABLES Final Result [facility] [address] [facility] Department of Laboratories [place], [place] [id number] * eGFR (09/23/2024 5:06 AM MARINE ENGINE MECHANIC) eGFR 81 >=60 mL/min/1. 73 m2 Comment: [...] was last reviewed 2021. Testing performed by: [address] [address] Blood 09/23/2024 5:06 AM MARINE ENGINE MECHANIC 09/23/2024 5:10 AM MARINE ENGINE MECHANIC us Jean Claude Matta Jr., MD LAB BLOOD ORDERABLES Fi nal Result [place] [address] [facility] Department [place] [address] * (ABNORMAL) Differential, auto (09/23/2024 5:06 AM MARINE ENGINE MECHANIC) Neutrophil abs 6.8(H) 1.5 - 6.5 K/cumm Comment:Testing performed by : [address] [address] Imm gran abs 0.1 0.0 - 0.1 K/cumm ROS[facility]BA Comment:Testing performed by : [address] [address] Lymphocyte abs 0.8 0.8 - 3.3 K/cumm [facility] Comment:Testing performed by : [address] [address] Monocyte abs 0.6 0.2 - 0.8 K/cumm [facility] Comment:Testing performed by : [address] [address] Eosinophil abs 0.0 0.0 - 0.5 K/cumm ROS[facility] Comment:Testing performed by : [address] [address] Basophil abs 0.0 0.0 - 0.1 K/cumm ROS[facility] Comment:Testing performed by : [address] [address] Neutrophil pct 81.8 % ROS[facility]BA Comment: Interpretive Data Percent cell count reference ranges are not reported, since discordance with absolute values may lead to misinterpretation of CBC data. Current Interpretive Data was last revised on 2017. Testing performed by: [address] [address] Imm gran pct 0.7 % ROASLBA Comment: Interpretive Data Percent cell count reference ranges are not reported, since discordance with absolute values may lead to misinterpretation of CBC data. Current Interpretive Data was last revised on 2017. Testing performed by: [address] [address] Lymphocyte pct 9.3 % [facility] Comment: Interpretive Data Percent cell count reference ranges are not reported, since discordance with absolute values may lead to misinterpretation of CBC data. Current Interpretive Data was last revised on 2017. Testing performed by: [address] [address] Monocyte pct 7.7 % [facility] Comment: Interpretive Data Percent cell count reference ranges are not reported, since discordance with absolute values may lead to misinterpretation of CBC data. Current Interpretive Data was last revised on 2017. Testing performed by: [address] [address] Eosinophil pct 0.5 % [facility] Comment: Interpretive Data Percent cell count reference ranges are not reported, since discordance with absolute values may lead to misinterpretation of CBC data. Current Interpretive Data was last revised on 2017. Testing performed by: [address] [address] Basophil pct 0.0 % [facility] Comment: Interpretive Data Percent cell count reference ranges are not reported, since discordance with absolute values may lead to misinterpretation of CBC data. Current Interpretive Data was last revised on 2017. Testing performed by: [address] [address] Blood 09/23/2024 5:06 AM MARINE ENGINE MECHANIC 09/23/2024 5:10 AM MARINE ENGINE MECHANIC us Jean Claude Matta Jr., MD LAB BLOOD ORDERABLES Fi nal Result [facility] [address] [facility] Department [place] [address] * (ABNORMAL) CBC with auto differential (09/23/2024 5:06 AM MARINE ENGINE MECHANIC) WBC 8.3 3.8 - 9.9 K/cumm Comment:Testing performed by : [address] [address] Hgb 12.5 11.9 - 15.5 g/dL [facility] Comment:Testing performed by : [address], [address] Hct 41.7 35.6 - 45.5 % [facility]BA Comment:Testing performed by : [address] [address] Plt 207 150 - 400 K/cumm [facility] Comment:Testing performed by : [address] [address] MPV 11.7 9.1 - 12.3 fL [facility] Comment:Testing performed by : [address] [address] RBC 5.66(H) 3.90 - 5.20 M/cumm [facility] Comment:Testing performed by : [address] [address] MCV 73.7(L) 81.3 - 96.4 fL [facility] Comment:Testing performed by : [address] [address] MCH 22.1(L) 27.1 - 33.3 pg [facility] HOLT Comment:Testing performed by : [address] [address] MCHC 30.0(L) 32.3 - 35.7 g/dL [facility] Comment:Testing performed by : [address] [address] RDW CV 18.3(H) 11.1 - 14.9 % [facility] HOLT Comment:Testing performed by : [address] [address] RDW SD 45.1 35.7 - 48.1 fL [facility] HOLT Comment:Testing performed by : [address] [address] NRBC abs 0.00 0.00 - 0.01 K/cumm [facility] HOLT Comment:Testing performed by : [address] [address] Blood 09/23/2024 5:06 AM MARINE ENGINE MECHANIC 09/23/2024 5:10 AM MARINE ENGINE MECHANIC us Jean Claude Matta Jr., MD LAB BLOOD ORDERABLES Fi nal Result [facility] Department [place] [address] * (ABNORMAL) Comprehensive metabolic panel (09/23/2024 5:06 AM MARINE ENGINE MECHANIC) Sodium 139 135 - 145 mmol/L Comment:Testing performed by : [address] [address] Potassium, pl 3.4 3.3 - 4.9 mmol/L [facility] HOLT Comment:Testing performed by : [address] [address] Chloride 103 97 - 110 mmol/L ROS[facility] HOLT Comment:Testing performed by : [address] [address] CO2 24 22 - 32 mmol/L [facility] HOLT Comment:Testing performed by : [address] [address] Anion gap 12 2 - 15 mmol/L [facility] HOLT Comment:Testing performed by : [address] [address] BUN 26(H) 6 - 25 mg/dL [facility] HOLT Comment:Testing performed by : [address] [address] Creatinine 0.80 0.60 - 1.10 mg/dL [facility] HOLT Comment:Testing performed by : [address] [address] Glucose 77 70 - 199 mg/dL ROSALBA [...] was last revised 2022. Testing performed by: [address] [address] Calcium 9.5 8.5 - 10.3 mg/dL [facility] Comment:Testing performed by : [address] [address] Bilirubin, total 0.5 0.1 - 1.2 mg/dL [facility] Comment:Testing performed by : [address] [address] Protein, pl 7.0 6.5 - 8.5 g/dL [facility] Comment:Testing performed by : [address] [address] Albumin 3.7 3.5 - 5.0 g/dL [facility] Comment:Testing performed by : [address] [address] Alk phos 82 40 - 130 Units/L [facility] Comment:Testing performed by : [address] [address] ALT 11 7 - 45 Units/L [facility] Comment:Testing performed by : [address] [address] AST 11 10 - 45 Units/L [facility] Comment:Testing performed by : [address] [address] Blood 09/23/2024 5:06 AM MARINE ENGINE MECHANIC 09/23/2024 5:10 AM MARINE ENGINE MECHANIC us Jean Claude Matta Jr., MD LAB BLOOD ORDERABLES Fi nal Result Performing Organization Address [facility] Co de Phone Number [facility] [place] [address] * POCT glucose (09/23/2024 5:04 AM MARINE ENGINE MECHANIC) Glucose, POC 71 70 - 199 mg/dL Comment:Testing performed by : [address] [address] Glucose comment 1 Use This Result ROS[facility]BA Comment:Testing performed by : [address] [address] Glucose comment 2 RN/MD Notified [facility] Comment:Testing performed by : [address] [address] Blood 09/23/2024 5:04 AM MARINE ENGINE MECHANIC 09/23/2024 5:04 AM MARINE ENGINE MECHANIC Notinfile Unknown LAB POCT ORDERABLES - DEVICE F inal Result Performing Organization Address [facility] Co de Phone Number [facility] [place] [address] * Diagnostic Mammogram Bilateral W Sukumar (04/09/2024 [...] Gen Anderson M.D. RL: REBECCA Report ID: [id number] Reading Location: [facility] us Haleigh Young MD IMG MAMMO PROCEDURE S Final Result * COLONOSCOPY (10/28/2023 3:01 PM MARINE ENGINE MECHANIC) Anatomical Region Laterality Modality Other Narrative Procedure Note Jammie Burdick MD - 10/28/2023 3:01 PM CST ED [facility] GI ENDOSCOPY Patient Name: Dipti Luna Procedure Date: 10/28/2023 3:01 PM Date of : 1960 Admit Type: Outpatient Age: 63 Gender: Female Attending MD: Jammie Burdick M.D. Room: [facility] ENDOSCOPY ROOM 06 Note Status: Finalized [...] The scope was passed under direct vision.The [id number] colonoscope was introduced through theanus and advanced [...] On: 10/28/2023 3:01 PM Recognized by the [employer] for promoting quality in endoscopy Jammie Burdick MD ENDOSCOPY PROCEDURES Tash asencio Result * Hepatitis C antibody Blood (08/09/2023 1:28 PM MARINE ENGINE MECHANIC) Hep C Ab Nonreactive Nonreactive [facility] Comment: [...] revised on 2019. Blood 08/09/2023 1:28 PM MARINE ENGINE MECHANIC 08/09/2023 6:31 PM MARINE ENGINE MECHANIC us Jammie Burdick MD LAB MICROBIOLOGY - [facility] L ORDERABLES Final Result [facility] [address] [facility] Department [place] [address] * DEXA Axial Skeleton Bone Density Multi Site (02/22/2023 10:45 AM CDT) Anatomical Region Laterality Modality Body N/A Mammography 02/22/2023 3:45 PM CDT Narrative 02/22/2023 3:45 PM CDT EXAM DESCRIPTION: DEXA AXIAL SKELETON BONE DENSITY 1 OR MORE SITES REASON FOR STUDY: 62 y/o year old F with given history of screening. 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 TW: TW Report ID: [id number] Reading Location: [place] [address] Procedure Note Elodia Recinos MD - 02/22/2023 EXAM DESCRIPTION: DEXA AXIAL SKELETON BONE DENSITY 1 OR MORE SITES REASON FOR STUDY: 62 y/o year old F with given history of screening. 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 TW: TW Report ID: [id number] Reading Location: [place] [address] Brenda Stewart NP IMG DXA PROCEDURES Final Result * Pap and High Risk HPV, reflex to Genotyping (12/22/2022 7:56 AM CDT) Thin prep (Pap test) 12/22/2022 7:56 AM CDT 12/23/2022 7:56 AM CDT Narrative PATHOLOGY [facility] - 12/28/2022 11:38 AM CDT [facility] Department of Pathology [address] [place] [address] Final Report with Addendum Note to Patients: [...] the details. Patient Name: DIPTI LUNA Address: [address] [place] [address], [address] [place] [address] Gender: F : 1960 (Age: 62) Service: Location: [facility] #: [id number] Patient Type: [facility] SPECIMEN Taken: 12/22/2022 Received: 12/23/2022 Accessioned:: 12/24/2022 Reported: 12/28/2022 Physician(s): Nia Alfred M.D. [facility] Diagnosis: SOURCE OF SPECIMEN SCREENING THIN [...] determined by the Surgical Pathology Department at [facility] as part of an ongoing quality and reliability engineer program and in compliance with federally [...] characteristics determined by the Surgical Pathology Department [facility]. It has not been cleared or approved by the U. S. Food and Drug Administration. Nia Alfred MD LAB CYTOLOGY ORDERABLES F inal Result PATHOLOGY [facility] from Last 3 Months or Most Recently Relevant to Health Maintenance Insurance [facility] [employer] Advance Directives For more information, please contact: [phone] Documents on File Type Date Recorded Patient High Reach Operator Expl anation ADVANCE DIRECTIVE 02/01/2024 1:59 PM POLST - Phys Order for PT Preferences ADVANCE DIRECTIVE 01/30/2024 1:03 PM Power of Photonic Laboratory Technician-Medical ADVANCE DIRECTIVE 06/02/2022 12:57 PM Jami r of Photonic Laboratory Technician-Medical ADVANCE DIRECTIVE 06/02/2022 12:56 PM Yoon ng [...] 4:56 PM 05/31/2022 2:29 PM Care Teams Recreational Assistant Relationship Specialty Start Date End Date Haleigh Young MD [address] [place] [address] PCP - General Family Medicine 11/24/21 Luis Saunders MD Referring Physician Gastroenterology 07/31/18 Jammie Burdick MD Referring Physician Gastroenterology 07/31/18 Ervin Garcia MD [address] [facility] [address] [address] Consulting Physician Pulmonary Disease 07/08/20 Jean Carlos Berrios MD [address] [facility] [place] [address] Referring Physician Obstetrics and Gynecology 02/23/22 Rosa Herr RN [address] [place] [address] DR ADAIR [address] [place] [address] Hand Hide Stretcher 06/03/22 Braden Sherwood DO [address] [facility] [place] [address] Referring Physician Psychiatry 06/04/22 Ladonna Martinez, COLLIN [address] [facility] [place] [address] Nurse Practitioner Nurse Practitioner 10/31/23 Kamila Witt NP [address] [facility] [place] [address] Nurse Practitioner Hospice and Palliative Medicine 03/01/24
--- OUTSIDE RECORDS SUMMARY | 2024-11-26 17:14 | XMS_ITS | Encounter Summary ---
Author Organization [facility] Address [address] [place] [address] Care Team Providers Care Circuit Board Repair Technician Name Role Phone Maya Mcclain MD Primary Care Provider [phone] Encounter Details Date Type Department Care Team (Late st Contact Info) Description 10/14/2023 Lab Requisition [facility] - DermPath Lab [address] [facility] [place] [address] Ketan Sheppard MD [facility] DERMATOLOGY [address] [place] [phone] Dermatitis, unspecified Social History Tobacco Use [...] Diagnosis Comments DERMATOPATHOLOGY Routine 10/14/2023 3:33 AM CONSIGNEE Dermatitis, unspecified documented in this encounter Results * DERMATOPATHOLOGY (10/14/2023 3:33 AM CONSIGNEE) Case Report Dermatopathology Report Case: [id number] Authorizing Provider: Ketan Sheppard MD Collected: 10/14/2023 03:33 AM Ordering Location: [facility] DermPath Lab Received: 10/17/2023 02:24 PM Pathologist: Ruby Licona MD Specimen: Skin, left buttock 4:27 PM [facility] DERMATOPATHOLOGY LABORATORY Final Diagnosis Specimen A. SKIN, left buttock: EPIDERMAL NECROSIS SUGGESTIVE OF EXCORIATION (L98.499) (see microscopic description) 4 4:27 PM [facility] DERMATOPATHOLOGY LABORATORY Clinical History Atopic dermatitis vs contact dermatitis other vs scabies 4:27 PM [facility] DERMATOPATHOLOGY LABORATORY Gross Description Specimen A: Received is one formalin filled container labeled with the patient's name and designated left buttock. The specimen consists of a punch biopsy measuring 4x4x4 mm, bisected. Jar 0. 4:27 PM [facility] DERMATOPATHOLOGY LABORATORY Microscopic Description Specimen A. SKIN, left buttock: The epidermis is focally necrotic and covered with a scale-crust. There is fibrin at the base. Additional deeper sections were obtained and reviewed. Grocott's methenamine silver (GMS) stain is negative for fungal elements in the sections examined. 4:27 PM [facility] DERMATOPATHOLOGY LABORATORY Disclaimer An external and internal positive and negative controls are appropriate for the histochemical, immunohistochemical and immunofluorescence stain(s) in this case (if any), except where stated explicitly. The performance characteristics of the stain(s) cited in this report were developed and its performance characteristic determined by the Dermatopathology Laboratory at [facility], directed by Dr. Jaylan Cunningham. These tests need not be, and therefore are not, approved by the [place] Food and Drug Administration. The tests are used for clinical purposes. Billing Codes Specimen Charges Stain Charges 71039 1 35509 1 4 4:27 PM [facility] DERMATOPATHOLOGY LABORATORY Embedded Images 4 4:27 PM [facility] DERMATOPATHOLOGY LABORATORY Pathology/Cytolo gy TISSUE SPECIMEN FROM SKIN / Unknown 10/14/2023 3:33 AM CONSIGNEE 10/17/2023 2:24 PM CONSIGNEE Ketan Sheppard MD LAB - PATHOLOGY/[facility]TO [facility] ORDER[facility]LES DERMATOPATHOLOGY LABORATORY [facility] - Department of Dermatology [address], [address] [phone] documented in this encounter Visit Diagnoses Diagnosis Dermatitis, unspecified documented in this encounter Care Teams Circuit Board Repair Technician Relationship Specialty Start Date End Date Maya Mcclain MD [address] [place] [phone] PCP - General 10/31/20 documented as of this encounter
--- OUTSIDE RECORDS SUMMARY | 2024-11-26 17:14 | XMS_ITS | Encounter Summary ---
Author Organization [facility] Address [address] [place] [address] Care Team Providers Care Baby Attendant Name Role Phone Luis Saunders MD Unavailable [phone] Jammie Burdick MD Unavailable [phone] Ervin Garcia MD Unavailable [phone] Haleigh Young MD Primary Care Provi naye Jean Carlos Berrios MD Unavailable [phone] Rosa Herr RN Unavailable [phone] Braden Sherwood DO Unavailable [phone] Ladonna Martinez TREE GIRDLER Unavailable [phone] Kamila Witt TREE GIRDLER Unavailable [phone] Reason for Visit * Reason Onset Date Comments Shortness of Breath 11/26/2024 Encounter Details Date Type Department Care Team (Late st Contact Info) Description 11/26/2024 Nurse Triage [facility] Family Medicine [address] [phone] Haleigh Young MD [address] [place] [id number] Social History Tobacco Use Types Packs/Day [...] materials from doctor or pharmacy Sometimes 09/22/2023 [facility] Utilities Answer Date Recorded In the past 12 months has e [employer] gas, oil, or water [employer] threatened to shut off services in your [...] often do you attend chur ch or muslim services? Never 10/18/2024 Do you belong to any clubs o r organizations such as druze groups, unions, fraternal or athletic groups, or [...] place to sleep or slept in a detention (including now)? No 10/17/2023 Housing Stability Vital [...] time in the past 12 m [facility], were you homeless or living in a detention (including now)? No 10/18/2024 Personal Safety Answer Date Recorded Have you ever been in or are you currently in a harmful physical or emotional relationship or is someone making you feel afraid or unsafe? Denies 10/10/2024 Comments No Sex and Gender Information Value Date Recorded Sex Assigned at Not on file Legal Sex Female 1:41 PM LIBRARY CONSULTANT Gender Identity Not on file Sexual Orientation Not on file Occupation Industry Job Start Date Job End Date DISABILITY Not on file Not on file Not on file documented as of this encounter Miscellaneous Notes * Telephone Encounter - Latasha Vyas RN - 11/26/2024 8:43 AM CDT Tearful and upset on phone. Chronic breathing issues for years and sees player development executive. She reports last direction from player development executive-was ED or PCP. Pt called on 11/23/24 for SOB with pulse ox in 80%s-pt was redirected to ED by PCP office as well. Pt went to [facility] on 11/23/24 and reports she waited [...] no other way-has no family and no assistance)(player development executive when discussing hospice directs her to PCP)Provider contacted via secure chat for ED disposition consult. Recommendation from provider:Other: Alvaro PA- ED is her best option now to get stabilized and once stabilized an office visit would be appropriate w/ PCP. With much discussion pt agreed to [facility]. Reason for Disposition Oxygen level (e.g., pulse oximetry) 90% or lower Protocols used: Breathing Zeybcudgmi-Petef-EU * Telephone Encounter - Latasha Vyas RN [...] the 70's when walking, pt spoke with rn clinical coordinator on 11/23/2024 and was advised to be seen in the ED. Pt states she went to [facility] on Tuesday and waited 5 hours [...] ACO Care Management On track(2023 1:13 PM LIBRARY CONSULTANT) No Rosa Herr, RN Note: Problem: Knowledge [...] ACO Care Management On track(2024 10:21 AM LIBRARY CONSULTANT) No Bev Du LCSW Note: Problem: Need [...] on filedocumented in this encounter Care Teams Baby Attendant Relationship Specialty Start Date End Date Haleigh Young MD [address] [place] [address] PCP - General Family Medicine 11/24/21 Luis Saunders MD Referring Physician Gastroenterology 07/31/18 Jammie Burdick MD Referring Physician Gastroenterology 07/31/18 Ervin Garcia MD [address] [facility] [address] [place] [address] Consulting Physician Pulmonary Disease 07/08/20 Jean Carlos Berrios MD [address] [facility] [place] [address] Referring Physician Obstetrics and Gynecology 02/23/22 Rosa Herr, MIRTA [address] [place] [address] [address] [place] [address] Third Rail Installer 06/03/22 Braden Sherwood DO [address] [facility] [address] [place] [address] Referring Physician Psychiatry 06/04/22 Ladonna Martinez, COLLIN [address] [facility] [address] [place] [address] Nurse Practitioner Nurse Practitioner 10/31/23 Kamila Witt NP [address] [facility] [place] [address] Nurse Practitioner Hospice and Palliative Medicine 03/01/24 documented as of this encounter
--- OUTSIDE RECORDS SUMMARY | 2024-11-26 17:14 | XMS_ITS | Encounter Summary ---
Author Organization [facility] Healthcare Address [address] [place] [address] Care Team Providers Care Club Manager Name Role Phone Luis Saunders MD Unavailable [phone] Jammie Burdick MD Unavailable [phone] Ervin Garcia MD Unavailable [phone] Haleigh Young MD Primary Care Provi naye Jean Carlos Berrios MD Unavailable [phone] Rosa Herr RN Unavailable Braden Sherwood DO Unavailable [phone] Ladonna Martinez [employer] Unavailable Kamila Witt NP Unavailable Sally Castañeda MA Unavailable [phone] Encounter Details Date Type Department Care Team (Late st Contact Info) Description 02/07/2024 Telephone [facility] Family Medicine [address] [phone] Haleigh Young MD [address] [place] [address] Social History Tobacco Use Types Packs/Day [...] materials from doctor or pharmacy Sometimes 09/22/2023 [facility] Utilities Answer Date Recorded In the past 12 months has th e [employer], gas, oil, or water [employer] threatened to shut off services in your [...] often do you attend chur ch or islam services? Never 01/30/2024 Do you belong to [...] place to sleep or slept in a half-way (including now)? No 10/17/2023 Housing Stability Vital Sign Answer Lucas e Recorded In the last 12 months, was t here a time when you were not able to pay the mortgage or rent on time? No 01/30/2024 In the past 12 months, how m any times have you moved where you were living? 1 01/30/2024 At any time in the past [address] [facility], were you homeless or living in a half-way (including now)? No 01/30/2024 Personal Safety Answer Date Recorded Have you ever been in or are you currently in a harmful physical or emotional relationship or is someone making you feel afraid or unsafe? Denies 01/28/2024 Comments No Sex and Gender Information Value Date Recorded Sex Assigned at Not on file Legal Sex Female 1:41 PM HEAD RESIDENT Gender Identity Not on file Sexual Orientation [...] ACO Care Management On track(2023 1:13 PM HEAD RESIDENT) No Rosa Herr, RN Note: Problem: Knowledge [...] ACO Care Management On track(2024 10:21 AM HEAD RESIDENT) No Bev Du LCSW Note: Problem: Need [...] Time MRSA 01/30/2024 01/30/2024 07/28/2024 3:05 AM HEAD RESIDENT documented as of this encounter Care Teams Club Manager Relationship Specialty Start Date End Date Haleigh Young MD [address] [place] [address] PCP - General Family Medicine 11/24/21 Luis Saunders MD Referring Physician Gastroenterology 07/31/18 Jammie Burdick MD Referring Physician Gastroenterology 07/31/18 Ervin Garcia MD [address] [facility] [address] [place] [address] Consulting Physician Pulmonary Disease 07/08/20 Jean Carlos Berrios MD [address] [facility] [place] [address] Referring Physician Obstetrics and Gynecology 02/23/22 Rosa Herr RN [address] [place] [address] [address] [place] [address] Social Studies Teacher 06/03/22 Braden Sherwood DO [address] [facility] [address] [place] [address] Referring Physician Psychiatry 06/04/22 Ladonna Martinez, COLLIN [address] [facility] [address] [place] [address] Nurse Practitioner Nurse Practitioner 10/31/23 Kamila Witt NP [address] [place] [address] Nurse Practitioner Hospice and Palliative Medicine 03/01/24 Sally Castañeda, TYRESE [address] [place] [address] [address] [place] [address] ACO Care Mine Superintendent 10/15/24 10/15/24 documented as of this encounter
== END 2024-11-26 18:48 | disposition home or self-care (01) ==
PROVIDERS: Registered Nurse; Emergency Provider Emergency Medicine; PCP Family Medicine
DX: J44.9 Chronic obstructive pulmonary disease, unspecified (principal); J96.11 Chronic respiratory failure with hypoxia; M79.7 Fibromyalgia; Z87.891 Personal history of nicotine dependence; Z79.899 Other long term (current) drug therapy; Z79.51 Long term (current) use of inhaled steroids
CPT/HCPCS: 36415; 71046; 80053; 83735; 84484; 85025; 85610; 85730; 93005; 94640; 99284; A9270

== ENCOUNTER 2025-06-15 15:47 | Emergency (ER) | payer MEDICARE, MEDICAID, SELFPAY ==
[2025-06-15 15:48] VITALS: BP 119/74; PULSE 100; RESP 19; TEMP 36.7; O2SAT 96
[2025-06-15] MEDS: ONDANSETRON HCL ODT 4 MG TABLET PO (16:02)
--- NOTE | 2025-06-15 16:02 | ED.FEMALEGU ---
HPI - Female Genitourinary General Chief complaint: Urogenital-Female Stated complaint: possible UTI, fever Source: patient and EMS Mode of arrival: EMS Limitations: no limitations History of Present Illness HPI Narrative: This is a 64-year-old female, with history COPD on hospice and 4 L of O2, brought in by EMS from home with complaints of increased urination and not feeling well. The patient states she has had frequent, dark urine without abdominal pain. She states she has had some a nausea and vomiting but is able to pass gas and has nonbloody stools. She prefers to avoid IVs or invasive interventions. She has no other complaints at this time. Related Data Home Medications ?Medication ?Instructions ?Recorded ?Confirmed ?Last Taken ?Type albuterol sulfate 2.5 mg/3 mL 2.5 mg QID 07/04/23 01/28/24 1 Day Ago History (0.083 %) solution for nebulization ~07/03/23 albuterol sulfate 90 mcg/actuation 2 puff inhalation Q6H PRN Wheezing 07/04/23 01/28/24 Unknown History aerosol inhaler alprazolam 1 mg tablet 1 mg PO TID 07/04/23 01/28/24 1 Day Ago History ~07/03/23 atorvastatin 10 mg tablet 10 mg PO QHS 07/04/23 01/28/24 1 Day Ago History ~07/03/23 diclofenac sodium 75 mg 75 mg PO BID 07/04/23 01/28/24 1 Day Ago History tablet,delayed release ~07/03/23 dicyclomine 20 mg tablet 20 mg PO BID 07/04/23 01/28/24 1 Day Ago History ~07/03/23 esomeprazole magnesium 40 mg 40 mg PO BID 07/04/23 01/28/24 1 Day Ago History capsule,delayed release ~07/03/23 fluticasone fur. 200 mcg-umeclid 1 inh inhalation DAILY 07/04/23 01/28/24 1 Day Ago History 62.5 mcg-vilant 25 mcg ~07/03/23 inhalat.powder (Trelegy Ellipta) hydroxyzine HCl 25 mg tablet 25 mg PO DAILY PRN Anxiety 07/04/23 01/28/24 Unknown History metoclopramide HCl 10 mg tablet 10 mg PO QID 07/04/23 01/28/24 1 Day Ago History ~07/03/23 ondansetron HCl 4 mg tablet 4 mg PO Q6H 07/04/23 01/28/24 1 Day Ago History ~07/03/23 tizanidine 2 mg tablet 2 mg PO QID 07/04/23 01/28/24 1 Day Ago History ~07/03/23 valacyclovir 500 mg tablet 500 mg PO DAILY 07/04/23 01/28/24 1 Day Ago History ~07/03/23 venlafaxine 150 mg 300 mg PO DAILY 07/04/23 01/28/24 1 Day Ago History capsule,extended release 24 hr ~07/03/23 Allergies Allergy/AdvReac Type Severity Reaction Status Date / Time codeine Allergy Severe Swelling Verified 06/15/25 15:58 of Lip/Tongue/Throat Review of Systems Review of Systems: All systems reviewed & are unremarkable except as noted in HPI and below PMFSH Past Medical History Medical History COPD exacerbation Acute on chronic respiratory failure with hypoxia Social History Social History Smoking status: Former smoker Alcohol intake: never Substance use: never Lack of Transportation: YES Lack of Food: Often True Current Housing: I Have Housing Concerned About Future Housing: No Difficulty Paying Gas/Electric Bills: No Difficulty Paying for Meds: No Currently Unemployed: No Education: High School Diploma/GED Difficulty w/ Childcare or Family Care: No Spiritual care concerns: No Exam Narrative: GENERAL: Well-developed, well-nourished, and in no acute distress. HEAD: Normocephalic, atraumatic. EYES: PERRLA and EOMI. ENT: Nares clear, no rhinorrhea or epistaxis. Mucous membranes dry. Oropharynx without tonsillar hypertrophy exudate or other lesions. CHEST: Clear to auscultation. No respiratory distress. No wheezes rales or rhonchi HEART: Regular rate and rhythm. No murmur heard. Normal peripheral pulses. ABDOMEN: Soft, nontender, nondistended, normal active bowel sounds. No CVA tenderness EXTREMITIES: Normal range of motion. No edema. SKIN: Warm, dry, no rash. NEURO: Alert and oriented x3. No focal deficit. Moving all 4 limbs spontaneously PSYCH: Normal mood and affect. Course Course Emergency Course: 17:41 - Urinalysis shows changes consistent with urinary tract infection. The patient's vital signs have been within normal limits. Her O2 saturations remained in the high 90s on her baseline 4 L of oxygen. I had a shared decision-making conversation with the patient. She did not have a strong preference for admission verses discharge with oral antibiotics. Considering her home hospice status and exam not concerning for acute decompensation, will discharge with oral antibiotics and recommendation for hospice and primary care follow-up. I discussed the findings and recommendations with the patient. Discussed return and emergency precautions including signs/symptoms of acute abdomen and intractable vomiting. The patient voiced understanding and agreement with the plan. All questions answered to her satisfaction. Vital Signs Vital signs: Vital Signs Temperature 98.1 F 06/15/25 15:48 Pulse Rate 100 06/15/25 15:48 Respiratory Rate 19 06/15/25 15:48 Blood Pressure 119/74 06/15/25 15:48 Pulse Oximetry 96 06/15/25 15:48 Oxygen Delivery Nasal Cannula 06/15/25 15:48 Oxygen Flow Rate 4 06/15/25 15:48 Temperature 98.1 F 06/15/25 15:48 Pulse Rate 75 06/15/25 18:17 Respiratory Rate 18 06/15/25 18:17 Blood Pressure 111/64 06/15/25 18:17 Pulse Oximetry 100 06/15/25 18:17 Oxygen Delivery Nasal Cannula 06/15/25 15:48 Oxygen Flow Rate 4 06/15/25 15:48 MDM - Female Genitourinary MDM Narrative Medical decision making narrative: Plan: Labs, comfort care, reassess Differential Diagnosis Differential diagnosis: Likely urinary tract infection and other (COPD, other) Lab Data Labs: Lab Results 06/15/25 Range/Units 16:52 Urine Color Dark yellow (Yellow) Urine Appearance Turbid H (Clear) Urine pH 5.5 (5.0-9.0) Ur Specific [employer] 1.023 (1.001-1.035) Urine Protein 1+ H (Negative) mg/dL Urine Glucose (UA) Negative (Negative) mg/dL Urine Ketones Trace H (Negative) mg/dL Ur Blood (Man) Negative (Negative) Urine Nitrate Negative (Negative) Urine Bilirubin 1+ H (Negative) Urine Urobilinogen 1.0 (<2.0) mg/dL Add Ur Microanalysis Reviewed Leukocyte Esterase Rfl 1+ H (Negative) JOSE/UL Urine RBC 0-2 (0-2) /hpf Urine WBC 6-10 H (0-3) /hpf Ur Squamous Epith Cells Many H (Few) /hpf Urine Bacteria 3+ H /hpf Urine Casts >20 Hyaline Casts Present (None) /lpf Discharge Plan Discharge Clinical Impression: Acute UTI COPD (chronic obstructive pulmonary disease) Qualifiers: COPD type: unspecified COPD Qualified Code(s): J44.9 - Chronic obstructive pulmonary disease, unspecified Patient Disposition: Hospice - Home Condition: Stable Instructions: Acute Urinary Retention in Women (ED) Additional Instructions: You were seen in the emergency department. Your labs are changes consistent with urinary tract infection. I recommend a course of oral antibiotics and follow-up with your primary care doctor and hospice team. If you develop severe abdominal pain, abdominal pain with fevers, persistent vomiting, or if you have other emergent concerns for life, limb, or eyesight, return to the emergency department. Patient Language: Norwegian Prescriptions: New sulfamethoxazole-trimethoprim 800-160 mg tablet 1 tablet PO Q12H 7 Days Qty: 14 0RF No Action tizanidine 2 mg tablet 2 mg PO QID albuterol sulfate 2.5 mg /3 mL (0.083 %) solution for nebulization 2.5 mg QID atorvastatin 10 mg tablet 10 mg PO QHS alprazolam 1 mg tablet 1 mg PO TID ondansetron HCl 4 mg tablet 4 mg PO Q6H venlafaxine 150 mg capsule,extended release 24hr 300 mg PO DAILY valacyclovir 500 mg tablet 500 mg PO DAILY dicyclomine 20 mg tablet 20 mg PO BID esomeprazole magnesium 40 mg capsule,delayed release(DR/EC) 40 mg PO BID diclofenac sodium 75 mg tablet,delayed release (DR/EC) 75 mg PO BID hydroxyzine HCl 25 mg tablet 25 mg PO DAILY PRN (Reason: Anxiety) albuterol sulfate 90 mcg/actuation HFA aerosol inhaler 2 puff INHALATION Q6H PRN (Reason: Wheezing) metoclopramide HCl 10 mg tablet 10 mg PO QID Trelegy Ellipta 200-62.5-25 mcg blister with device 1 inh INHALATION DAILY Follow-up/Referrals: Hector,MD Haleigh [Non-Staff, Unknown] - 3 Days Time of Disposition: 17:45
[2025-06-15 17:04] LABS: Add Urine Microscopic? YES; Appearance Urine Turbid (Clear); Glucose Urine UA Negative (Negative); Leukocyte Esterase Ur 1+ LEU/UL (Negative); Need Manual Microscopic Reviewed; Nitrate Urine Negative (Negative); Non Pathogenic Casts >20; Specific Grav Ur 1.023 (1.001-1.035)
[2025-06-15] MEDS: SULFAMETHOXAZOLE/TRIMETHOPRIM 800/160 MG DS TABLET 1 TAB PO (18:13)
[2025-06-15] MEDS: HYDROmorphone HCL (*CRX) 2 MG TABLET PO (18:13)
[2025-06-15 18:17] VITALS: BP 111/64; PULSE 75; RESP 18; O2SAT 100
--- NOTE | 2025-06-15 18:39 | PC.NURSE ---
Notified Darrin, hospice clinical manager, that patient will be discharged home with oral antibiotics.
[2025-06-15 19:39] VITALS: BP 106/79; PULSE 89; RESP 20; O2SAT 95
--- NOTE | 2025-06-15 19:39 | PC.NURSE ---
Report received from MIRTA Valdes. Assumed care of patient at this time. Patient waiting for transport back home.
--- NOTE | 2025-06-15 21:09 | PC.NURSE ---
Patient requesting her home pain med, ERP notified and orders placed. Patient updated on ETA for transport.
[2025-06-15] MEDS: MORPHINE SULFATE (*CRX) 15 MG TAB IR PO (21:34)
[2025-06-16] VITALS (7 sets, daily range): BP systolic 107–124; BP diastolic 60–61; PULSE 88–94; RESP 17–18; O2SAT 96–100
[2025-06-16] MEDS: HYDROmorphone HCL (*CRX) 2 MG TABLET PO (01:05)
--- NOTE | 2025-06-16 03:56 | PC.NURSE ---
EMS here to take patient back home.
== END 2025-06-16 03:56 | disposition hospice, home (50) ==
PROVIDERS: Emergency Provider Preventive Medicine Aerospace Medicine
DX: N39.0 Urinary tract infection, site not specified (principal); J44.9 Chronic obstructive pulmonary disease, unspecified; Z99.81 Dependence on supplemental oxygen
CPT/HCPCS: 81001; 99283; A9270

== ENCOUNTER 2025-06-19 05:41 | Observation (INO) | payer MEDICARE, MEDICAID, SELFPAY ==
[2025-06-19] VITALS (45 sets, daily range): BP systolic 94–135; BP diastolic 60–107; PULSE 89–102; RESP 11–26; TEMP 36.6–37; O2SAT 81–99
--- NOTE | ~2025-06-19 | XR_ITS ---
Examination: XR chest 1V portable Clinical History: Trauma Comparison: 11/26/2024 Technique: Portable AP Findings: Slightly widened mediastinum but low lung volumes. Airspace opacity left upper lobe. Chronic interstitial markings. No acute bony abnormality. IMPRESSION: 1. Widened upper mediastinum. Recommend CT chest to exclude vascular injury. 2. Left upper lobe airspace opacity possibly contusion or airspace disease. Reviewed, dictated and finalized at location R.
--- NOTE | ~2025-06-19 | CT_ITS ---
EXAMINATION: CT pelvis wo con DATE: 06/19/2025 06:23 INDICATION: Right hip pain. TECHNIQUE: Computed tomography (CT) of the pelvis was performed without intravenous contrast. Automated exposure control and iterative reconstruction technique were employed. The dose-length product was 907.26 mGy-cm. COMPARISON: CT abdomen and pelvis 07/04/2023 FINDINGS: Alignment is normal. No fracture. There is mild osteoarthritis of the hips. There is severe osteoarthritis of the sacroiliac joints. There is severe lumbar spondylosis. IMPRESSION: 1. Mild osteoarthritis of the hips. Reviewed, dictated and finalized at location E.
--- NOTE | ~2025-06-19 | XR_ITS ---
EXAMINATION: XR hip RT 2V w AP pelvis, 06/19/2025 6:30 CDT HISTORY: Right hip pain COMPARISON: No comparisons available. Findings: No acute fracture or malalignment. Moderate degenerative changes Soft tissues unremarkable. Impression: No acute fracture or malalignment. Reviewed, dictated and finalized at location P. Impression: No acute fracture or malalignment.
--- NOTE | ~2025-06-19 | CT_ITS ---
EXAMINATION: CT lumbar spine wo con COMPARISON: None HISTORY: Back pain status post fall TECHNIQUE: Axial images were obtained through the spine without IV contrast. Coronal, sagittal reconstruction images were obtained from the axial views. CT scan performed using dose optimization techniques including the following automated exposure control; adjustment of mA and/or kV; use of iterative reconstruction technique. Automatic exposure control was used to reduce radiation dose. Permanent radiation dose record is archived to PACS. FINDINGS: There is a remote superior endplate fracture of L4 with loss of height 50%. Grade 1 anterolisthesis of L5 on S1, no acute fracture is identified. There is moderate to severe loss of disc height in the visualized thoracic spine with moderate loss of disc height at L3-4, L4-5 and L5-S1 with circumferential bulging of the disc and facet hypertrophy producing moderate to severe canal and foraminal stenosis. Soft tissues demonstrate a small hiatal hernia, right renal calculus 4 mm, large simple appearing right renal cyst 6 x 7 cm, outpatient ultrasound is suggested. Impression: No acute fracture. Incidental findings above Reviewed, dictated and finalized at location P. Impression: No acute fracture. Incidental findings above
--- NOTE | ~2025-06-19 | CT_ITS ---
EXAMINATION:CT diagnostic chest w con DATE: 06/19/2025 07:52 INDICATION: Widened mediastinum. Abnormal chest radiograph. Trauma. TECHNIQUE: Computed tomography (CT) of the chest was performed with 75 mL Omnipaque 350 intravenous contrast. Automated exposure control and iterative reconstruction technique were employed. The dose-length product (DLP) was 920.38 mGy-cm. COMPARISON: Chest single view 06/19/2025 FINDINGS: There is severe emphysema. There is mild atelectasis and scarring bilaterally. There are airspace opacities and nodules in right upper lobe, right middle lobe, and right lower lobe, consistent with pneumonia. A calcified right lung nodule is consistent with old granulomatous disease. No pleural effusion. The heart size is normal. There are coronary artery calcifications. No pericardial effusion. The central pulmonary arteries are enlarged, consistent with pulmonary arterial hypertension. There is a small sliding hiatal hernia. There are changes of cholecystectomy. There is a 4.0 cm cyst in right kidney. There is a 3 mm stone in right kidney. Calcifications in the spleen are consistent with old granulomatous disease. Aortic atherosclerosis is noted. There is severe thoracic spondylosis. There is mild chronic height loss of multiple vertebral bodies. IMPRESSION: 1. Multifocal right lung disease, consistent with pneumonia. 2. Severe emphysema. 3. Small sliding hiatal hernia. Reviewed, dictated and finalized at location E.
--- NOTE | ~2025-06-19 | CT_ITS ---
CT HEAD NON-CONTRAST CT C-SPINE Clinical History: fall, head injury Comparison: None Technique: Unenhanced axial images skull base to vertex. Coronal, sagittal reformats. Axial images thoracic inlet to skull base. Sagittal and coronal reformats. CT images acquired with automatic exposure control for dose reduction DLP: 605 mGy-cm Findings: Head: Sulci, ventricles: Unremarkable. No intracerebral hemorrhage. No evidence acute territorial infarct. No mass effect, midline shift, intra-/extra-axial fluid collection. Bony calvarium intact. Visualized paranasal sinuses: Clear. Mastoid air cells: Clear. C-spine: No acute fracture. Grade 1 anterolisthesis C2 on 3, C3 on 4, C4 on 5. Straightening of normal cervical lordosis. Mild degenerative changes. Disc spaces maintained. Prevertebral soft tissues within normal limits. Visualized lung apices: Emphysema. Scarring. A few small mediastinal nodes. Visualized thyroid: Unremarkable. IMPRESSION: HEAD: 1. No acute intracranial findings. C-SPINE: 1. No acute fracture. 2. Upper mediastinal widening due to fat. If any hemodynamic instability exists, can consider CT chest. Reviewed, dictated and finalized at location R. IMPRESSION: HEAD: 1. No acute intracranial findings. C-SPINE: 1. No acute fracture. 2. Upper mediastinal widening due to fat. If any hemodynamic instability exist s, can consider CT chest.
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
[2025-06-19 06:10] LABS: Hematocrit 37.3 % (37.0-47.0); Hemoglobin 10.4 g/dL (12.0-15.0); Immature Granulocyte Percent A 2.2 % (0-0.5); Lymphocytes Absolute Auto 1.55 K/mm3 (0.9-3.2); Mean Corpuscular HGB Conc 27.9 g/dl (32-36); Mean Corpuscular Hemoglobin 23.6 pg (26-34); Mean Corpuscular Volume 84.8 fl (80-100); Nucleated Red Blood Cells Absolute Auto 0.020 K/mm3 (0.0-0.012); Nucleated Red Blood Cells Perc 0.1 % (0.0-0.2); Platelet Count Result 276 k/mm3 (150-375); Red Blood Count 4.40 M/mm3 (4.2-5.4); White Blood Count 14.1 K/mm3 (4.5-10.0)
[2025-06-19 06:36] LABS: Alanine Aminotransferase 22 U/L (6-35); Albumin Level 3.8 g/dL (3.5-5.1); Alkaline Phosphatase 94 U/L (38-126); Anion Gap 9 mmol/L (4-12); Aspartate Amino Transferase 25 U/L (14-36); Bilirubin,Total 0.4 mg/dL (0.2-1.3); Blood Urea Nitrogen 21 mg/dL (7-17); Calcium 9.1 mg/dL (8.4-10.2); Carbon Dioxide 23 mmol/L (22-30); Chloride 107 mmol/L (98-107); Estimated Glomerular Filt Rate 41; Glucose 96 mg/dL (65-110); Potassium 4.8 mmol/L (3.4-5.0); Sodium 139 mmol/L (137-145); Total Protein 7.1 g/dL (6.3-8.2)
--- OUTSIDE RECORDS SUMMARY | 2025-06-19 06:39 | XMS_ITS | Encounter Summary ---
Author Organization [facility] Address [address] [place] [id number] Care Team Providers Care Biology Laboratory Assistant Name Role Phone Maya Mcclain MD Primary Care Provider [phone] None, Provider Primary Care Provider Haleigh Bai MD Primary Care Provider Encounter Details Date Type Department Care Team (Late st Contact Info) Description 12/08/[address] [facility] [place], [place] [id number] Luis Saunders MD [address] [id number] Social History Tobacco Use Types Packs/Day Years Used Date Smoking Tobacco: Every Day Electronic Cigarettes Smokeless Tobacco: Never Alcohol Use Standard Drinks/Week Comments Not Currently 0 (1 standard drink = 0.6 oz pur e alcohol) AUDIT-C Answer Date Recorded Q1: How often do you have a drink containing alc ohol? Never 07/03/2020 Average Number of Drinks Not on file 020 Frequency of Binge Drinking Not on file 06/13 Comments No Sex and Gender Information Value Date Recorded Sex Assigned at Female 12/19/2024 3:58 PM CDT Legal Sex Female 8:02 PM CDT Gender Identity Not on file Sexual Orientation Not on file COVID-19 Exposure Response Date Recorded In the last month, have you been in contact with someone who was confirmed or suspected to have Coronavirus / COVID-19? No / Unsure 12/11/2020 12:21 PM CDT documented as of this encounter Plan of Treatment Not on file documented as of this encounter Results * PRE-SURGICAL/PRE-PROCEDURE CORONAVIRUS (COVID 19) (12/08/2020 11:15 AM CDT) CORONAVIRUS SARS COV 2 PCR (RESP) NOT DETECTED NOT DETECTED 12/09/2020 6:16 PM CDT [facility] Comment: A Not Detected (negative) test result for this test means that SARS- CoV-2 RNA was not present in the specimen above the limit of detection. A negative result does not rule out the possibility of COVID-19 and should not be used as the sole basis for treatment or patient management decisions. If COVID-19 is still suspected, based on exposure history together with other clinical findings, re-testing should be considered in consultation with public health authorities. Laboratory test results should always be considered in the context of clinical observations and epidemiological data in making a final diagnosis and patient management decisions. Please review the Fact Sheets and FDA authorized labeling available for health care providers and patients using the following websites: https://www.[employer].com/home/Covid-19/HCP/[facility]/fact- sheet.html https://www.[employer]/home/Covid-19/Patients/ [employer]/fact-sheet.html This test has been authorized by the FDA under an Emergency Use Authorization (EUA) for use by authorized laboratories. Due to the current public health emergency, [facility] is receiving a high volume of samples from a wide variety of swabs and media for COVID-19 testing. In order to serve patients during this public health crisis, samples from appropriate clinical sources are being tested. Negative test results derived from specimens received in non-commercially manufactured viral collection and transport media, or in media and sample collection kits not yet authorized by FDA for COVID-19 testing should be cautiously evaluated and the patient potentially subjected to extra precautions such as additional clinical monitoring, including collection of an additional specimen. Methodology: Nucleic Acid Amplification Test (NAAT) includes RT-PCR or TMA Additional information about COVID-19 can be found at the [facility] website: www.[employer]/Covid19. Test performed at [facility] [address] [id number] Director: JAYLEEN CHO DO,MPH FIRST TEST NO 12/08/2020 1:31 PM CDT [facility] EMPLOYED IN HEALTHCARE NO 12/08/2020 1:31 PM CDT [facility] SYMPTOMATIC DEFINED BY CDC NO 12/08/2020 1:31 PM CDT [facility] DATE OF SYMPTOM ONSET UNKNOWN 12/08/2020 1:33 PM CDT [facility] HOSPITALIZATION STATUS NO 12/08/2020 1:31 PM CDT [facility] PATIENT IN ICU NO 12/08/2020 1:31 PM CDT [facility] RESIDENT OF [facility] NO 12/08/2020 1:31 PM CDT [facility] UNKNOWN 12/08/2020 1:33 PM CDT [facility] PATIENT'S RACE WHITE OR 12/08/2020 1:31 PM CDT [facility] ETHNICITY NONHISPANIC 12/08/2020 1:31 PM CDT [facility] SOURCE (QST) NASOPHARYNGEAL SWAB 12/08/2020 1:31 PM CDT [facility] NASOPHARYNGEAL SWAB / Unknown 12/08/2020 11:15 AM CDT us Luis Saunders MD MICROBIOLOGY - GENERAL KHLOE DURAND Final Result [facility] [address] [place] [address], [place] [phone] [facility] [address] [place] [address], documented in this encounter Visit Diagnoses Diagnosis Dysphagia- Primary Dysphagia, unspecified documented in this encounter Additional Health Concerns Infection Onset Date Last Indicated Resolved Time COVID-19 Rule Out 12/08/2020 12/08/2020 12/09/2020 6:16 PM CDT COVID-19 Rule Out 05/06/2022 05/06/2022 05/06/2022 11:48 PM CDT documented as of this encounter Care Teams Biology Laboratory Assistant Relationship Specialty Start Date End Date Maya Mcclain MD [facility] [address] [place] [address] PCP - General FAMILY PRACTICE 10/23/20 05/05/22 None, MD Margot PCP - General 05/06/22 12/18/24 Haleigh Young MD [facility] [address] [place] [address] PCP - General FAMILY PRACTICE 12/19/24 documented as of this encounter
[2025-06-19 06:45] LABS: Hypochromasia 2+
[2025-06-19 06:46] LABS: Anisocytosis 1+
[2025-06-19 06:47] LABS: Schistocytes None Seen
[2025-06-19 09:34] LABS: Alveolar/Arterial O2 Gradient 90.5 mmHg; Carboxyhemoglobin 0.7 % THb (0-2.0); Fractional Inspired Oxygen 28 %; HCO3 ABG 20.6 mEq/l (22.0-26.0); Methemoglobin ABG 0.2 %THb (0-1.5); Oxygen Content ABG 14.3 %vol (16.0-22.0); PCO2 ABG 45.2 mmHg (35.0-45.0); PO2 ABG 55.8 mmHg (80.0-100.0); PO2 FiO2 Ratio Arterial Blood 1.99 %; Reduced Hemoglobin 14.3 %THb (0-5.0)
[2025-06-19 09:37] LABS: Liters per Minute 2.0 LPM; Modified Allen's Test Pass; Oxygen Saturation ABG 85.1 % (95.0-100.0); Site Drawn LEFT RADIAL
--- NOTE | 2025-06-19 09:39 | PCRCNOTE ---
ABG'S done late pt is a hard stick
--- NOTE | 2025-06-19 09:42 | PCCCNOTE ---
Spoke with [facility] [phone] regarding pt. Pt has AMS possible d/t PNA or UTI and is not safe to return home at this time. I spoke with pt and she admits that she is having hallucinations more frequently. She is open to being placed in a care facility but she states she does not have the funds to afford one. Roxie Mora (career law clerk) from [facility] returned call and states that pt can be admitted as OBS for 24hr and stay on hospice; after 24 Hrs she would have to come off hospice. Dr. Elias will place as OBS from the ER.
[2025-06-19] MEDS: AZITHROMYCIN 250 MG TABLET 500 MG PO (09:43)
[2025-06-19] MEDS: MORPHINE SULFATE (*CRX) 4 MG/ML INJ 2 MG IV PUSH (09:43)
--- NOTE | 2025-06-19 10:29 | PC.NURSE ---
Pt refused being placed in a gown prior to being taken upstairs. Yifan KIRBY from [facility] was notified that the pt refused this when report was called.
--- NOTE | 2025-06-19 10:30 | PC.NURSE ---
Report was called to Yifan KIRBY at 1025 am. Hospitalist is in the room with the pt so she has not been brought up to her room yet.
--- NOTE | 2025-06-19 10:36 | ECG_ITS ---
Test Date: 2025-06-19 12:37:08 Measurements Intervals [place] Rate: 96 P: 43 MA: 170 QRS: -2 QRSD: 81 T: 3 QT: 316 QTc: 400 Interpretive Statements SINUS RHYTHM EARLY PRECORDIAL R/S TRANSITION BASELINE ARTIFACT- I, II, III, AVR, AVL, AVF, V1-V6 BORDERLINE ECG Compared to ECG 11/26/2024 15:40:03 No significant changes Electronically Signed On 06-19-2025 12:59:11 CDT by Shawn Rodriguez D.O.
--- NOTE | 2025-06-19 11:00 | PCCCNOTE ---
Spoke with Anna (Program Manufacturing Leader) [phone] at [facility]. She has been following pt. Anna states that she has had dicussions with pt regarding SNF or assisted living placement. At times pt receptive to placement then changes her mind. Kiel tierney is resistant to pt with high O2 requirements. Anna will continue to explore more placement options. Please contact her for more information regarding work done for placement. Anna [phone].
--- NOTE | 2025-06-19 11:19 | ADMGEN ---
This patient, Dipti Luna, was admitted to Medical Room 347-. Patient/family oriented to hospital policies and general routines including ID bracelet, bed and alarms, visiting hours, pain management, procedures, bathroom and other care routines, personal items, smoking policy, room service/diet, and visiting hours. Information on how to activate the Rapid Response Team has been discussed. Patient/Family are encouraged to report perceived risks to care and to ask questions if they do not understand what they are told or what they should do.
[2025-06-19] MEDS: LORazepam (*CRX) 1 MG TABLET PO (12:14)
--- NOTE | 2025-06-19 14:20 | PC.NURSE ---
Pt is a poor historian. Med list reconciled to the best of patient and this nurses ability.
[2025-06-19] MEDS: ALBUTEROL SULFATE NEB 2.5 MG/3 ML INH INHALATION (14:23)
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
--- NOTE | 2025-06-19 15:03 | PCCCNOTE ---
Attempted to contact Kobe Sharon (POA & Son) [phone]; no answer message left to call back. Called Jeanette Wang (daughter) [phone] with no answer and no message left.
[2025-06-19 15:26] LABS: Hematocrit 35.4 % (37.0-47.0); Hemoglobin 10.2 g/dL (12.0-15.0); Immature Granulocyte Percent A 2.6 % (0-0.5); Lymphocytes Absolute Auto 1.73 K/mm3 (0.9-3.2); Mean Corpuscular HGB Conc 28.8 g/dl (32-36); Mean Corpuscular Hemoglobin 23.9 pg (26-34); Mean Corpuscular Volume 83.1 fl (80-100); Nucleated Red Blood Cells Absolute Auto 0.000 K/mm3 (0.0-0.012); Nucleated Red Blood Cells Perc 0.0 % (0.0-0.2); Platelet Count Result 258 k/mm3 (150-375); Red Blood Count 4.26 M/mm3 (4.2-5.4); White Blood Count 11.0 K/mm3 (4.5-10.0)
[2025-06-19 15:35] LABS: Alanine Aminotransferase 19 U/L (6-35); Albumin Level 3.7 g/dL (3.5-5.1); Alkaline Phosphatase 88 U/L (38-126); Anion Gap 9 mmol/L (4-12); Aspartate Amino Transferase 24 U/L (14-36); Bilirubin,Total 0.2 mg/dL (0.2-1.3); Blood Urea Nitrogen 19 mg/dL (7-17); Calcium 9.0 mg/dL (8.4-10.2); Carbon Dioxide 22 mmol/L (22-30); Chloride 106 mmol/L (98-107); Estimated Glomerular Filt Rate 41; Glucose 117 mg/dL (65-110); Potassium 3.8 mmol/L (3.4-5.0); Sodium 137 mmol/L (137-145); Total Protein 6.6 g/dL (6.3-8.2)
[2025-06-19 15:41] LABS: Anisocytosis 1+; Hypochromasia 1+; Schistocytes None Seen
[2025-06-19 16:21] LABS: Add Urine Microscopic? YES; Appearance Urine Clear (Clear); Glucose Urine UA Negative (Negative); Leukocyte Esterase Ur Negative LEU/UL (Negative); Nitrate Urine Negative (Negative); Non Pathogenic Casts 0-2; Specific Grav Ur > 1.045 (1.001-1.035)
[2025-06-19 16:49] LABS: Magnesium 2.2 mg/dL (1.6-2.3)
[2025-06-19] MEDS: CEFEPIME 2 GM in SODIUM CHLORIDE 0.9% IV 50 ML 100 ML IVPB (16:55)
[2025-06-19] MEDS: LACTATED RINGERS 1,000 ML 50 ML IV CONT (16:55)
[2025-06-19] MEDS: BENZONATATE 100 MG CAPSULE 200 MG PO (16:57)
[2025-06-19] MEDS: clonazePAM (*CRX) 0.5 MG TABLET 1 MG PO (16:57)
[2025-06-19] MEDS: SENNA/DOCUSATE SODIUM TABLET 1 TAB PO (16:57)
--- NOTE | 2025-06-19 16:57 | PCCCNOTE ---
Spoke with Addie Ray from [facility] office [phone] mobile [phone] regarding?Dipti Luna?[id number]. She informed me that they have made arrangements for respite care at [facility] until permanent placement can be made.? The pt needs to be ready for transport at 9AM 06/20/25.? I spoke with Rosa the warehouse assistant and she will attempt to get the doctor to put in the dc order for tomorrow AM.??
[2025-06-19] MEDS: HYDROmorphone HCL (*CRX) 2 MG TABLET PO (17:21)
[2025-06-19] MEDS: MIRTAZAPINE 30 MG TABLET PO (21:37)
[2025-06-19] MEDS: guaiFENesin 12 HR 600 MG TABCR 1200 MG PO (21:37)
[2025-06-19] MEDS: MORPHINE SULFATE (*CRX) 15 MG TABCR PO (21:37)
[2025-06-19] MEDS: METOPROLOL TARTRATE 25 MG TABLET PO (21:37)
--- NOTE | 2025-06-19 22:56 | PC.NURSE ---
During assessment group underwriter noticed patient purse at bedside. Belt Sander noticed prescription bottles in purse and retrieved them to place in safe. 1st bottle: labeled Morphine 15mg q12H filled on Jun 13, 2025 quantity 30 (8 pills in bottle verified by group underwriter and charge nurse Kenyetta Finney), 2nd bottle: labeled Hydromorphone 2 mg Q4H filled Jun quantity 45 (13 pills in bottle verified by group underwriter and charge nurse Kenyetta Finney). Assessment of patient at the time included AXO 2/resp 16/ O2 98% on 4 L/ alert and following commands. No indication that patient had access or had taking any of these medications HospitalistReyna notified. Prescriptions counted and secured in med room
[2025-06-20] VITALS (9 sets, daily range): BP systolic 127; BP diastolic 80; PULSE 68–90; RESP 16–20; TEMP 36.3; O2SAT 91–100
--- NOTE | 2025-06-20 00:12 | PCRCNOTE ---
Window of time for administration has passed. See next scheduled administration.
[2025-06-20] MEDS: ALBUTEROL SULFATE NEB 2.5 MG/3 ML INH INHALATION ×2 (02:35→07:25)
[2025-06-20 04:44] LABS: Hematocrit 36.1 % (37.0-47.0); Hemoglobin 10.2 g/dL (12.0-15.0); Immature Granulocyte Percent A 3.8 % (0-0.5); Lymphocytes Absolute Auto 1.60 K/mm3 (0.9-3.2); Mean Corpuscular HGB Conc 28.3 g/dl (32-36); Mean Corpuscular Hemoglobin 23.9 pg (26-34); Mean Corpuscular Volume 84.5 fl (80-100); Nucleated Red Blood Cells Absolute Auto 0.000 K/mm3 (0.0-0.012); Nucleated Red Blood Cells Perc 0.0 % (0.0-0.2); Platelet Count Result 237 k/mm3 (150-375); Red Blood Count 4.27 M/mm3 (4.2-5.4); White Blood Count 7.6 K/mm3 (4.5-10.0)
[2025-06-20 04:59] LABS: Alanine Aminotransferase 19 U/L (6-35); Albumin Level 3.6 g/dL (3.5-5.1); Alkaline Phosphatase 88 U/L (38-126); Anion Gap 7 mmol/L (4-12); Aspartate Amino Transferase 20 U/L (14-36); Bilirubin,Total 0.3 mg/dL (0.2-1.3); Blood Urea Nitrogen 18 mg/dL (7-17); Calcium 8.9 mg/dL (8.4-10.2); Carbon Dioxide 26 mmol/L (22-30); Chloride 105 mmol/L (98-107); Estimated CRCL calculation 42 ml/min; Estimated Glomerular Filt Rate 38; Glucose 89 mg/dL (65-110); Potassium 4.0 mmol/L (3.4-5.0); Sodium 138 mmol/L (137-145); Total Protein 6.5 g/dL (6.3-8.2)
[2025-06-20 05:52] LABS: Anisocytosis 1+; Hypochromasia 1+; Ovalocytes 1+; Schistocytes None Seen
[2025-06-20 05:53] LABS: Polychromasia Occasional
[2025-06-20] MEDS: CEFEPIME 2 GM in SODIUM CHLORIDE 0.9% IV 50 ML 100 ML IVPB (07:25)
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
[2025-06-20] MEDS: guaiFENesin 12 HR 600 MG TABCR 1200 MG PO (08:53)
[2025-06-20] MEDS: ASPIRIN 81 MG ENTERIC TABLET PO (08:53)
[2025-06-20] MEDS: METOPROLOL TARTRATE 25 MG TABLET PO (08:53)
[2025-06-20] MEDS: VENLAFAXINE HCL XR 75 MG CAP.ER.24H 300 MG PO (08:54)
[2025-06-20] MEDS: BENZONATATE 100 MG CAPSULE 200 MG PO (08:54)
[2025-06-20] MEDS: FLUTICASONE/UMECLIDIN/VILANTER 200-62.5-25 MCG ELLIPTA 1 PUFF INHALATION (09:12)
[2025-06-20] MEDS: MORPHINE SULFATE (*CRX) 15 MG TABCR PO (10:44)
== END 2025-06-20 12:00 | disposition hospice, inpatient (51) ==
LOC: ANHED 09:53 → ANH3MED 10:08
PROVIDERS: Emergency Medicine; Admitting Provider Student in an Organized Health Care Education/Training Program; Emergency Provider Emergency Medicine; Visit Provider Student in an Organized Health Care Education/Training Program
DX: J15.9 Unspecified bacterial pneumonia (principal); J44.1 Chronic obstructive pulmonary disease with (acute) exacerbation; J96.21 Acute and chronic respiratory failure with hypoxia; N17.9 Acute kidney failure, unspecified; R41.82 Altered mental status, unspecified; D72.829 Elevated white blood cell count, unspecified; F41.9 Anxiety disorder, unspecified; R94.31 Abnormal electrocardiogram [ECG] [EKG]; D63.8 Anemia in other chronic diseases classified elsewhere; W18.30XA Fall on same level, unspecified, initial encounter; Z51.5 Encounter for palliative care; Z99.81 Dependence on supplemental oxygen; Z91.199 Patient's noncompliance with other medical treatment and regimen due to unspecified reason; M16.0 Bilateral primary osteoarthritis of hip; J43.9 Emphysema, unspecified; K44.9 Diaphragmatic hernia without obstruction or gangrene; Z79.51 Long term (current) use of inhaled steroids; Z79.82 Long term (current) use of aspirin; Z79.891 Long term (current) use of opiate analgesic; Z79.52 Long term (current) use of systemic steroids; Z87.891 Personal history of nicotine dependence
CPT/HCPCS: 36415; 36600; 70450; 71045; 71260; 72125; 72131; 72192; 73502; 80053; 81001; 82375; 82805; 83050; 83605; 83735; 84100; 85018; 85025; 87040; 87449; 87899; 93005; 94640; 96365; 96372; 96374; 96376; 99285; A9270; G0378; J0692; J1644; J2270; J7120; Q9967

== ENCOUNTER 2025-07-04 12:28 | Emergency (ER) | payer MEDICARE, MEDICAID, SELFPAY ==
[2025-07-04] VITALS (17 sets, daily range): BP systolic 85–157; BP diastolic 59–79; PULSE 95–118; RESP 17–36; O2SAT 93–98
--- NOTE | ~2025-07-04 | XR_ITS ---
Clinical history:Shortness of breath EXAM:X-ray chest 2 views TECHNIQUE:Frontal and lateral images of the chest were obtained. Comparisons:06/19/2025 FINDINGS: Cardiomediastinal silhouette is enlarged, unchanged. No pneumothorax. No pleural effusion. No free air under the diaphragm. Moderate-sized patchy opacities scattered throughout both lungs. There is a 5.9 x 4.3 cm masslike opacities in the left hilar region. Stable pulmonary nodule in the right lower lung. IMPRESSION: 1.There is a 5.9 x 4.3 cm masslike opacity in the left hilar region. Differential includes overlapping vasculature, focal consolidation, mass or vascular abnormality. A chest CT with contrast is recommended. The finding was not definitely seen in the chest x-ray from 06/19/2025. 2. Moderate-sized patchy opacities scattered throughout both lungs. Differential includes but is not limited to edema or pneumonia. Reviewed, dictated and finalized at location Q. IMPRESSION: 1.There is a 5.9 x 4.3 cm masslike opacity in the left hilar region. Differenti al includes overlapping vasculature, focal consolidation, mass or vascular abno rmality. A chest CT with contrast is recommended. The finding was not definitel y seen in the chest x-ray from 06/19/2025. 2. Moderate-sized patchy opacities scattered throughout both lungs. Differentia l includes but is not limited to edema or pneumonia.
--- NOTE | 2025-07-04 12:32 | ECG_ITS ---
Test Date: 2025-07-04 12:32:07 Measurements Intervals [place] Rate: 117 P: 17 SD: 175 QRS: 11 QRSD: 78 T: 28 QT: 285 QTc: 399 Interpretive Statements SINUS TACHYCARDIA EARLY PRECORDIAL R/S TRANSITION BASELINE ARTIFACT- I, II, III, AVR, AVL, AVF, V4-V6 ABNORMAL ECG Compared to ECG 06/19/2025 12:37:08 HEART RATE HAS INCREASED Electronically Signed On 07-04-2025 12:46:53 CDT by Shawn Rodriguez D.O.
[2025-07-04 12:43] LABS: Hematocrit 35.9 % (37.0-47.0); Hemoglobin 10.4 g/dL (12.0-15.0); Immature Granulocyte Percent A 1.4 % (0-0.5); Lymphocytes Absolute Auto 2.04 K/mm3 (0.9-3.2); Mean Corpuscular HGB Conc 29.0 g/dl (32-36); Mean Corpuscular Hemoglobin 23.5 pg (26-34); Mean Corpuscular Volume 81.0 fl (80-100); Nucleated Red Blood Cells Absolute Auto 0.020 K/mm3 (0.0-0.012); Nucleated Red Blood Cells Perc 0.1 % (0.0-0.2); Platelet Count Result 223 k/mm3 (150-375); Red Blood Count 4.43 M/mm3 (4.2-5.4); White Blood Count 14.9 K/mm3 (4.5-10.0)
[2025-07-04] MEDS: MORPHINE SULFATE (*CRX) 4 MG/ML INJ IV PUSH (13:01)
[2025-07-04 13:02] LABS: Alanine Aminotransferase 52 U/L (6-35); Albumin Level 4.0 g/dL (3.5-5.1); Alkaline Phosphatase 118 U/L (38-126); Anion Gap 8 mmol/L (4-12); Aspartate Amino Transferase 53 U/L (14-36); Bilirubin,Total 1.2 mg/dL (0.2-1.3); Blood Urea Nitrogen 15 mg/dL (7-17); Calcium 8.5 mg/dL (8.4-10.2); Carbon Dioxide 27 mmol/L (22-30); Chloride 101 mmol/L (98-107); Estimated Glomerular Filt Rate > 60; Glucose 99 mg/dL (65-110); Potassium 3.8 mmol/L (3.4-5.0); Sodium 136 mmol/L (137-145); Total Protein 6.9 g/dL (6.3-8.2)
[2025-07-04 13:03] LABS: Hypochromasia 1+; Schistocytes None Seen
[2025-07-04] MEDS: diazePAM INJ (*CRX) 10 MG/2 ML SYRINGE 2.5 MG IV PUSH (13:53)
--- NOTE | 2025-07-04 14:02 | ED_ITS ---
HPI - SOB/Dyspnea General Chief Complaint: Shortness of Breath/Dyspnea Stated Complaint: resp. distress Time Seen by Provider: 07/04/25 12:32 Source: patient Mode of arrival: EMS Limitations: no limitations History of Present Illness HPI Narrative: 65-year-old with a history of end-stage COPD presently on hospice care was brought in from home with the complaints of increased shortness of breath and low O2 sats. Patient is on home O2 however are O2 sats were in high 70 's she denies having any chest pain. No history of fever . Hospice care patient want pt to be admitted for stablization MD elicited complaint: shortness of breath Pertinent past history: COPD Onset (ago): day(s) (3) Timing: constant Severity: severe Exacerbating factors: nothing Relieving factors: oxygen Known history of: COPD Associated symptoms: denies other symptoms Related Data Home Medications ?Medication ?Instructions ?Recorded ?Confirmed ?Last Taken ?Type buspirone 5 mg tablet 5 mg PO TID 06/16/25 5 06/18/25 History hydromorphone 2 mg tablet 2 mg PO Q4H PRN pain 5 06/19/25 Unknown History morphine 15 mg tablet,extended 15 mg PO Q12H 06/16/25 06/19/25 06/18/25 History release Allergies Allergy/AdvReac Type Severity Reaction Status Date / Time codeine Allergy Severe Swelling Verified 07/04/25 12:34 of Lip/Tongue/Throat Review of Systems 2 Review of Systems: All systems reviewed & are unremarkable except as noted in HPI and below Constitutional: Constitutional: Reports no additional constitutional complaints Eyes: Eyes: Reports no additional eye complaints ENT: Reports system reviewed and no additional complaints, except as documented Cardiovascular: Cardiovascular: Reports no additional cardiovascular complaints Respiratory: Respiratory: Reports no additional respiratory complaints Gastrointestinal: Gastrointestinal: Reports no additional gastrointestinal complaints Musculoskeletal: Musculoskeletal: Reports no additional musculoskeletal complaints [facility] Past Medical History Medical History (Updated 07/04/25 @ 14:04 by Wander Moya MD) Anxiety Anemia in chronic illness Hospice care patient COPD exacerbation Acute on chronic respiratory failure with hypoxia Social History Social History Smoking status: Former smoker Alcohol intake: never Substance use: never Lack of Transportation: YES Lack of Food: Often True Current Housing: I Have Housing Concerned About Future Housing: No Difficulty Paying Gas/Electric Bills: No Difficulty Paying for Meds: No Currently Unemployed: No Education: High School Diploma/GED Difficulty w/ Childcare or Family Care: No Spiritual care concerns: No Exam 2 Narrative: GENERAL: Well-appearing, well-nourished, in moderate resp distress HEAD: Normocephalic, atraumatic. EYES: PERRLA and EOMI. ENT: Nares clear, no rhinorrhea or epistaxis. Mucous membranes moist. NECK: Supple. CHEST: Decreased air entry. HEART: Regular rate and rhythm. No murmur heard. Normal peripheral pulses. ABDOMEN: Soft, nontender, nondistended, normal active bowel sounds. EXTREMITIES: Normal range of motion. No edema. SKIN: Warm, dry, no rash. NEURO: No focal deficits. Alert and oriented x3. PSYCH: Normal mood and affect. Course Course Emergency Course: Patient finally calmed down with IV morphine and Valium. She was given IV Solu- Medrol. We will admit her to the hospital and continue hospice care Vital Signs Vital signs: Vital Signs Pulse Rate 118 H 07/04/25 12:26 Respiratory Rate 26 H 07/04/25 12:26 Blood Pressure 157/79 H 07/04/25 12:26 Pulse Oximetry 97 07/04/25 12:26 Oxygen Delivery Nasal Cannula 07/04/25 12:26 Oxygen Flow Rate 6 07/04/25 12:26 Pulse Rate 118 H 07/04/25 12:26 Respiratory Rate 26 H 07/04/25 12:26 Blood Pressure 157/79 H 07/04/25 12:26 Pulse Oximetry 97 07/04/25 12:42 Oxygen Delivery Nasal Cannula 07/04/25 12:42 Oxygen Flow Rate 6 07/04/25 12:42 MDM - SOB/Dyspnea MDM Narrative Medical decision making narrative: 65-year-old with his history of end-stage COPD now having exacerbation will do lab work control and chest x-rays needed meanwhile the morphine and Valium for agitation. Differential Diagnosis Differential diagnosis: Likely acute exacerbation of chronic obstructive airways disease, congestive heart failure, community acquired pneumonia and asthma with exacerbation Medical Records Attestation: I reviewed the patient's medical records. Lab Data Attestation: I reviewed the patient's lab results. 07/04/25 12:38 07/04/25 12:38 Labs: Lab Results 07/04/25 Range/Units 12:38 WBC 14.9 H (4.5-10.0) K/mm3 RBC 4.43 (4.2-5.4) M/mm3 Hgb 10.4 L (12.0-15.0) g/dL Hct 35.9 L (37.0-47.0) % MCV 81.0 (80-100) fl MCH 23.5 L (26-34) pg MCHC 29.0 L (32-36) g/dl RDW 16.0 H (11.5-14.5) % Plt Count 223 (150-375) k/mm3 MPV 10.8 H (7.4-10.4) fl Immature Gran % (Auto) 1.4 H (0-0.5) % Neut % (Auto) 76.5 H (45.5-73.1) % Lymph % (Auto) 13.7 L (18.3-44.2) % [place] % (Auto) 7.2 (2.6-8.5) % Eos % (Auto) 0.9 (0-4.4) % Baso % (Auto) 0.3 (0.2-1.2) % Lymph # (Auto) 2.04 (0.9-3.2) K/mm3 [place] # (Auto) 1.1 H (0.1-0.6) K/mm3 Eos # (Auto) 0.1 (0-0.3) K/mm3 Baso # (Auto) 0.1 (0.0-0.1) K/mm3 Abs Immat Gran (auto) 0.21 H (0.00-0.031) K/mm3 Absolute Neuts (auto) 11.4 H (1.3-6.7) K/mm3 Absolute Nucleated RBC 0.020 H (0.0-0.012) K/mm3 Band Neutrophils % Not Reportable Nucleated RBC % 0.1 (0.0-0.2) % Platelet Estimate Adequate (Adequate) Hypochromasia 1+ Schistocytes None seen Sodium 136 L (137-145) mmol/L Potassium 3.8 (3.4-5.0) mmol/L Chloride 101 (98-107) mmol/L Carbon Dioxide 27 (22-30) mmol/L Anion Gap 8 (4-12) mmol/L BUN 15 (7-17) mg/dL Creatinine 0.80 (0.7-1.0) mg/dL Estim Creat Clear Calc Not Reportable Estimated GFR > 60 (59 - ) Glucose 99 (65-110) mg/dL Calcium 8.5 (8.4-10.2) mg/dL Total Bilirubin 1.2 (0.2-1.3) mg/dL AST 53 H (14-36) U/L ALT 52 H (6-35) U/L Alkaline Phosphatase 118 (38-126) U/L Total Protein 6.9 (6.3-8.2) g/dL Albumin 4.0 (3.5-5.1) g/dL Imaging Data Radiologist's impression: ITS Impressions Chest X-Ray 07/04/25 13:26 IMPRESSION: 1.There is a 5.9 x 4.3 cm masslike opacity in the left hilar region. Differential includes overlapping vasculature, focal consolidation, mass or vascular abnormality. A chest CT with contrast is recommended. The finding was not definitely seen in the chest x-ray from 06/19/2025. 2. Moderate-sized patchy opacities scattered throughout both lungs. Differential includes but is not limited to edema or pneumonia. ECG Data EKG #1: ECG completion date: 07/04/25 ECG completion time: 12:32 EKG Interpretation: tachycardia (117), no ectopy, no ST changes, normal QRS, normal QT and NL axis Discharge Plan Discharge Clinical Impression: COPD exacerbation, Hospice care patient Patient Disposition: Still a Patient Condition: Stable Patient Language: Danish Prescriptions: No Action buspirone 5 mg tablet 5 mg PO TID hydromorphone 2 mg tablet 2 mg PO Q4H PRN (Reason: pain) morphine 15 mg tablet extended release 15 mg PO Q12H levofloxacin 750 mg tablet 750 mg PO .q48 3 Days Qty: 2 0RF Rx Instructions: take one tablet on 06/22, and another on 06/24 cefpodoxime 200 mg tablet 200 mg PO Q12H 4 Days Qty: 8 0RF Rx Instructions: must administer with a meal/food prednisone 10 mg tablet 10 mg PO DAILY 30 Days Qty: 0 0RF mirtazapine 30 mg tablet,disintegrating 30 mg PO HS 30 Days Qty: 0 0RF albuterol sulfate 2.5 mg /3 mL (0.083 %) solution for nebulization 2.5 mg continuous nebulization QID 30 Days Qty: 0 0RF benzonatate 200 mg capsule 200 mg PO TID 30 Days Qty: 0 0RF ondansetron HCl 4 mg tablet 4 mg PO DAILY PRN (Reason: nausea and vomiting) 30 Days Qty: 0 0RF sennosides-docusate sodium [Stimulant Laxative Plus] 8.6-50 mg tablet 1 tab-cap PO BID 30 Days Qty: 0 0RF venlafaxine 150 mg capsule,extended release 24hr 300 mg PO DAILY 30 Days Qty: 0 0RF aspirin 81 mg tablet,delayed release (DR/EC) 81 mg PO DAILY 30 Days Qty: 0 0RF hydromorphone 2 mg tablet 2 mg PO Q4H PRN (Reason: pain) 30 Days Qty: 0 0RF montelukast 10 mg tablet 10 mg PO DAILY 30 Days Qty: 0 0RF morphine 15 mg tablet extended release 15 mg PO Q12H 30 Days Qty: 0 0RF lorazepam 1 mg tablet 1 mg PO Q4H PRN (Reason: anxiety) 30 Days Qty: 0 0RF polyethylene glycol 3350 17 gram/dose powder 17 g PO DAILY PRN (Reason: constipation) 30 Days Qty: 0 0RF albuterol sulfate 90 mcg/actuation HFA aerosol inhaler 2 puff INHALATION Q6H PRN (Reason: Wheezing) 30 Days Qty: 0 0RF metoprolol tartrate 25 mg tablet 25 mg PO Q12H 30 Days Qty: 0 0RF guaifenesin [Mucinex] 1,200 mg tablet extended release 12hr 1,200 mg PO Q12H 30 Days Qty: 0 0RF Dupixent Pen 300 mg/2 mL pen injector 300 mg SUBCUT .COMPLEX 30 Days Qty: 0 0RF Rx Instructions: 300 mg subcutaneously every two weeks.; Trelegy Ellipta 200-62.5-25 mcg blister with device 1 inh INHALATION DAILY 30 Days Qty: 0 0RF Follow-up/Referrals: UNKNOWN,DOCTOR [Primary Care Provider] Time of Disposition: 15:04
--- OUTSIDE RECORDS SUMMARY | 2025-07-04 14:49 | XMS_ITS | Clinical Summary ---
Author Organization [facility] Address [address] [place] [address] Care Team Providers Care Sap Crm Developer Name Role Phone Luis Saunders MD Unavailable [phone] Jammie Burdick MD Unavailable [phone] Ervin Garcia MD Unavailable [phone] Haleigh Young MD Primary Care Provi naye Jean Carlos Berrios MD Unavailable [phone] Braden Sherwood DO Unavailable [phone] Ladonna Martinez NP Unavailable [phone] Kamila Witt NP Unavailable [phone] Allergies Active Allergy Reactions Criticality Noted Date Comments Codeine Angioedema High throat closes Medications oxygenIndications:Dyspn ea Administer 2 L/min into each nostril continuously Active SharpSafety Container misc as directed Active Dupixent Pen pen injector Active metoprolol tartrate (LOPRESSOR) 25 mg immediate release tablet Take 1 tablet (25 mg total) by mouth 2 (two) times a day 60 tablet 11 Active aspirin 81 mg enteric coated tablet Take 1 tablet (81 mg total) by mouth daily 30 tablet 11 Active diclofenac sodium (VOLTAREN) 1 % gel Apply 2 g topically 3 (three) times a day 50 g 10/30/2 024 Active naloxone (NARCAN) 4 mg/actuation spray,non-aerosol Administer 1 spray into affected nostril(s) as needed for opioid reversal or respiratory depression Call 911. Administer a single spray in one nostril. Repeat every 3 minutes as needed if no or minimal response. 1 each 025 Active alcohol swabs pads, medicatedIndications:Hy perglycemia Apply 1 each topically daily 200 each 3 025 Active blood-glucose meter kitIndications:Hypergly cemia Use to check blood sugars daily 1 kit 025 Active lancets miscIndications:Hypergl ycemia 1 each by other route as directed Use to check blood sugars daily 200 each 3 025 Active blood glucose diagnostic (glucose blood) stripIndications:Hyperg lycemia Use to check blood sugar daily as directed 100 each 3 025 Active ALPRAZolam (XANAX) 1 mg tablet Take 1 tablet (1 mg total) by mouth 4 (four) times a day 025 Active dicyclomine (BENTYL) 10 mg capsule TAKE 1 CAPSULE BY MOUTH THREE TIMES DAILY NEEDED 025 Active ondansetron (ZOFRAN) 4 mg tablet Take 1 tablet (4 mg total) by mouth daily as needed 025 Active venlafaxine XR (EFFEXOR-XR) 150 mg 24 hr capsule Take 1 capsule (150 mg total) by mouth 025 Active valACYclovir (VALTREX) 500 mg tabletIndications:HSV (herpes simplex virus) infection Take 1 tablet (500 mg total) by mouth daily 90 tablet [address] (NexIUM) 40 mg capsuleIndications:Skyla tment of Non-Bleeding Gastric Disorder Take 1 capsule (40 mg total) by mouth 2 (two) times a day 180 capsule 1 025 Active mirtazapine (REMERON) 15 mg tablet 025 Active atorvastatin (LIPITOR) 40 mg tabletIndications:Coron dinorah artery disease involving [place] coronary artery of [place] heart without angina pectoris,Pure hypercholesterolemia Take 1 tablet (40 mg total) by mouth nightly 90 tablet 3 025 Active benzonatate (TESSALON) 200 mg capsule Take 1 capsule (200 mg total) by mouth 3 (three) times a day as needed for cough 60 capsule 2 025 Active vvmzyyecupb-avadcfunl-k ilanter (Trelegy Ellipta) 200-62.5-25 mcg inhalerIndications:Main tenance Therapy for Asthma Inhale 1 puff daily 180 each 11 025 Active albuterol HFA (PROVENTIL HFA,VENTOLIN HFA,PROAIR HFA) 90 mcg/actuation inhalerIndications:[place]ry Baker blanca obstructive pulmonary disease, unspecified COPD type (HCC) Inhale 2 puffs every 6 (six) hours as needed for shortness of breath or wheezing for wheezing 18 g 3 025 Active albuterol 2.5 mg /3 mL (0.083 %) nebulizer solutionIndications:Chr onic obstructive pulmonary disease, unspecified COPD type (HCC) Take 3 mL (2.5 mg total) by nebulization every 6 (six) hours as needed for wheezing 360 mL 025 Active Active Problems Problem Noted Date Diagnosed Date Urinary retention 02/09/2024 Assessment & Plan (02/09/2024 11:32 AM CDT): Mild issue over the last few months but had to be catheterized in the hospital. Currently stable. - continue tamsulosin until you have follow-up with Urology Pulmonary hypertension 01/30/2024 Diastolic dysfunction 01/30/2024 Chronic bilateral thoracic back pain 11/01/2023 Assessment & Plan (11/01/2023 10:01 AM COAL HAULER OPERATOR): Chronic, persistent Encouraged to follow up with pain management Encouraged to update me after the visit Continue lyrica as prescribed Urinary incontinence 11/01/2023 Assessment & Plan (11/01/2023 10:05 AM COAL HAULER OPERATOR): Chronic, persistent Will place referral to urology for guidance Update me after the visit Incontinence of feces with fecal urgency 024 Assessment & Plan (11/01/2023 10:02 AM COAL HAULER OPERATOR): Chronic, persistent Encouraged to follow up with Dr Burdick Update me after the visit Call for questions Chronic respiratory failure with hypoxia 024 Assessment & Plan (06/28/2024 11:25 AM CDT): Chronic. Stable. Continue supplemental oxygen, 2 L. continue to follow with pulmonology. Assessment & Plan (04/12/2024 1:17 PM CDT): Chronic, persistent Oxygen level improved today Will reach out to her curator of manuscripts given her numbers, I do worry her [...] was reviewed with the patient and her maritime pilot Assessment & Plan (02/09/2024 11:30 AM CDT): Chronic. Doing well on room air - O2 97%. Continue supplemental oxygen 2 L when at home. Mixed hyperlipidemia 06/17/2023 Irritable bowel syndrome without diarrhea 2022 Osteoporosis 03/29/2023 Menopausal symptom 01/26/2022 Class 1 obesity due to exces s calories with serious comorbidity and body mass index (BMI) of 32.0 to 32.9 in adult 01/26/2022 Assessment & Plan (01/01/2025 1:24 PM CDT): Chronic, variable BMI Follow-up includes: education provided. Assessment & Plan (10/29/2024 1:54 PM COAL HAULER OPERATOR): BMI Follow-up includes: education provided. Assessment & Plan (10/17/2024 12:08 PM COAL HAULER OPERATOR): Chronic, stable BMI Follow-up includes: Encouraged [...] and cardizem Continue to follow with her rubber roller grinder operator Update me with any changes Call for [...] her to consider it- it may help! Cervical spine arthritis 11/24/2021 Assessment & Plan (11/01/2023 10:01 AM COAL HAULER OPERATOR): Chronic, persistent Encouraged to follow up [...] PM CDT): Chronic, stable Continue valtrex through [employer]Y CELL SEALER History of Lena fundoplication 08/17/2021 Leukocytosis 08/17/2021 Assessment & Plan (03/29/2023 2:32 PM CDT): resolved Assessment & Plan (04/12/2022 11:46 AM CDT): Getting higher with each lab test, patient with malaise, abdominal pain, shortness of breath Will refer back to the emergency room for further evaluation Update me with any changes or concerns History of diverticulitis 08/17/2021 Palpitations with regular [...] & Plan (06/04/2022 12:46 PM CDT): Continue Cardizem Set up follow-up with her rubber roller grinder operator as well Update me with any changes Call for questions or concerns Assessment & Plan (05/21/2022 6:17 PM CDT): With SVT during her hospital stay at [facility] Continue harman Encouraged follow up with cardiology For now- [...] for Medicare annual wellness exam 02/2021 Overview (01/01/2025): Discussed healthy diet and , working on daily activity to your level She has a POA- son Health Maintenance: Last mammogram: 04/09/24- benign Last DEXA: 01/26/2023- osteoporosis-ordered Last colonoscopy: 01/27/17- repeat in 10 years Last Tdap: encouraged Last pneumonia: encouraged Last Shingrix: encouraged Last Flu: up to date Last COVID: encouraged Test results: if you have not received communication about test results within 7 days of the test being performed, please contact the office. I strongly encourage myChart sign ups. It can facilitate communication flow. Please contact the office for instructions on signing up. Assessment & Plan (01/01/2025 12:59 PM CDT): Discussed healthy diet and , working on daily activity to your level She has a POA- son Health Maintenance: Last mammogram: 04/09/24- benign Last DEXA: 01/26/2023- osteoporosis-ordered Last colonoscopy: 01/27/17- repeat in 10 years Last Tdap: encouraged Last pneumonia: encouraged Last Shingrix: encouraged Last Flu: up to date Last COVID: encouraged Test results: if you have not received [...] please contact the office. I strongly encourage [employer] sign ups. It can facilitate communication flow. [...] monitor Assessment & Plan (09/16/2020 3:02 PM COAL HAULER OPERATOR): Unclear etiology She is not specific [...] pt Assessment & Plan (09/16/2020 3:01 PM COAL HAULER OPERATOR): Currently only taking effexor contineu current management Assessment & Plan (07/15/2020 8:50 AM COAL HAULER OPERATOR): We will start lyrica 150 mg [...] groups. Assessment & Plan (11/01/2023 10:06 AM COAL HAULER OPERATOR): Chronic, worse Encouraged to reach out [...] concerns Assessment & Plan (07/15/2020 8:48 AM COAL HAULER OPERATOR): We will continue this current regime, [...] 07/08/2020 Assessment & Plan (11/01/2023 10:01 AM COAL HAULER OPERATOR): Chronic, persistent Encouraged to follow up [...] of lumbar spine. Continue pain management with Conesus 5/325 mg q.6 p.r.n., lidocaine patch, Flexeril 5 mg t.i.d. p.r.n.. PT/OT care. Patient need to follow up with Dr. Delatorre outpatient Assessment & Plan (11/24/2021 10:34 AM CDT): Will check xray We discussed PT- she is unable to afford it She is going home exercises Continue supportive care Further guidance once we have the results Assessment & Plan (07/15/2020 8:48 AM COAL HAULER OPERATOR): Recommend THC, we will seek out [...] questions Assessment & Plan (07/15/2020 8:49 AM COAL HAULER OPERATOR): Remeron and effecor Taking only 150 [...] (09/07/2018): Added automatically from request for surgery [id number] Assessment & Plan (03/29/2023 4:54 PM CDT): Chronic, stable Continue Nexium Continue to follow with Dr. Saunders Assessment & Plan (01/26/2022 12:53 PM CDT): Referral to Dr Saunders placed Continue nexium History of aspiration pneumonia 05/18/2018 Iron deficiency anemia, unspecified 03/20/2018 Assessment & Plan (11/01/2023 10:09 AM COAL HAULER OPERATOR): Chronic, stable Managed by heme/onc Update me with any changes or concerns Call for questions Assessment & Plan (03/29/2023 2:31 PM CDT): Chronic Will place referral to heme Gilberto me after the visit Assessment & Plan (07/08/2020 8:34 AM CDT): As required iron tranfusions in the past per the patient Apparently has a GI bleed somewhere but she is unclear on where History of tobacco use 10/26/2016 Overview (12/17/2016): History of tobacco abuse Assessment & Plan (03/29/2023 2:29 PM CDT): Last cigarette was 14 years ago Continue to follow with pulmonary Assessment & Plan (07/08/2020 8:34 AM CDT): Now uses vaping Chronic bullous emphysema ([facility]) 10/26/2016 Overview (12/17/2016): Bullous emphysema Assessment [...] Garcia Assessment & Plan (07/15/2020 8:47 AM COAL HAULER OPERATOR): Likely resulting in her SOB with the change in medications Continue inhaler and seeing pulm History of gastric ulcer 08/04/2015 Assessment & Plan (03/29/2023 4:54 PM CDT): Resolved Continue Nexium Update me with changes or concerns Continue to follow with GI History of fall Spinal stenosis of lumbar region at multiple [facility] Assessment & Plan (11/01/2023 10:02 AM COAL HAULER OPERATOR): Chronic, persistent Encouraged to follow up [...] Problem Noted Date Diagnosed Date Resolved Date Acute on chronic respiratory failure with hypoxia 04/01/2025 04/02/2025 Pneumonia of right upper lob e due to infectious organism 03/27/2025 04/02/2025 Transaminitis 03/27/2025 04/02/2025 COPD exacerbation 01/28/2024 01/01/2025 Assessment & Plan (07/27/2024 3:57 PM COAL HAULER OPERATOR): Symptom duration 2 weeks Recent covid, [...] needed - follow with pulmonology in February. Chest pain, unspecified type 06/24/2022 03/29/2023 Abdominal pain 05/27/2022 03/29/2023 Overview (05/30/2022): Added automatically from request for surgery [id number] Diverticulitis large intesti ne w/o perforation or [...] Update us on Tuesday Call for questions COVID-19 virus infection 03/26/2022 Assessment & Plan (04/12/2022 11:43 AM CDT): With possible aspiration pneumonia Antibiotics completed, but white count keep climbing Given her shortness of breath cough and overall poor feeling, will refer back to the ER for further evaluation Update me after the visit Call for questions or concerns Aspiration pneumonia of right lower lobe 03/26/2022 [...] me after the visit callf or questions 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 11/24/2021 01/01/2025 Assessment & Plan (03/29/2023 2:35 PM CDT): Chronic, persistent Continue to follow with psychiatry Continue effexor Assessment & Plan (11/24/2021 10:22 AM CDT): Continue to follow with Dr Sherwood Update me with any changes Continue alprazolam and effexor through him Call for questions Abdominal pain 08/17/2021 11/24/2021 Acute blood [...] Plan (01/26/2022 12:51 PM CDT): On xanax, shravan Encouraged to follow up with her [...] & Plan (03/29/2023 2:30 PM CDT): resolved Melena 08/17/2021 03/29/2023 Anemia 08/17/2021 03/29/2023 Assessment & Plan (05/21/2022 6:18 PM CDT): Chronic, persistent Labs reviewed from her facilities manager Referral to hematology pending Update me [...] (09/07/2018): Added automatically from request for surgery [id number] COPD with acute exacerbation 07/11/2018 04/02/2025 Overview (08/17/2021): Patient has diagnosis of COPD. [...] (01/17/2022 12:10 PM CDT): Continue albuterol p.r.n., Treledalton, Melchor, Mucinex. Follows up with Pulmonary outpatient with Dr. Garcia Assessment & Plan (11/24/2021 10:34 AM CDT): Continue to follow with pulmonary Continue her inhalers Assessment & Plan (09/16/2020 3:02 PM COAL HAULER OPERATOR): Continue seeing pulm audit clerks supervisor antibiotic and steroids Assessment & Plan (07/08/2020 8:35 AM CDT): Continue to follow-up with pulm Shortness of breath 10/26/2016 01/02/20 25 Overview (12/17/2016): Dyspnea on exertion Assessment & Plan (02/09/2024 11:26 AM CDT): Chronic. Patient reports shortness of breath is worse when her heart rate seems to be elevated. - she has a call in to the new rubber roller grinder operator to see if she can follow-up sooner than May Assessment & Plan (03/29/2023 2:26 PM CDT): Resolved with treatment of her copd Assessment & Plan (04/12/2022 11:44 AM CDT): Chronic but slightly worse since the hospital stay Given her increasing white count, will refer back to the hospital Update me with any changes Call for questions or concerns Gastric ulcer 08/04/2015 03/29/2023 Encounters Date Type Department Care Team Description 07/02/2025 Telephone [facility] Family Medicine [address] [phone] Haleigh Young MD 06/19/2025 Telephone [facility] Cardiology [address] [facility] [address] [phone] González Dunlap MD 04/24/2025 10:30 AM CDT Office Visit [facility] Pulmonary [address] [place] [address] Ervin Garcia MD Dyspnea on exertion; Chronic obstructive pulmonary disease, unspecified COPD type (HCC); Wheezing 04/24/2025 Telephone [facility] Pulmonary [address] [place] [address] Ervin Garcia MD Medical Question/Miscellaneo us 04/03/2025 Telephone [facility] Medicine [facility] [address] [place] [address] [address] [place] [address] Fer Mckeon DO 04/03/2025 Telephone [facility] Family Medicine [address] [phone] Haleigh Young MD Medical Question/Miscellaneo us from Last 3 Months Immunizations Immunization Administration [...] History Date Comments Depression Depression Pulmonary emphysema Emphysema Gastroesophageal reflux disease GERD Arthritis Bulging lumbar disc Asthma Anxiety COPD (chronic obstructive pu lmonary disease) Peptic ulcer Chronic pain disorder Extremity pain Alcoholism (HCC) Anemia Bipolar disorder Gastric reflux History of transfusion Abdominal pain 08/17/2021 Acute blood loss anemia 08/17/2021 Acute renal failure syndrome 08/17/2021 Altered level of consciousness 08/17/2021 Calculus of gallbladder with out cholecystitis without obstruction 09/07/2018 Added automatically from request for surgery [id number] Community acquired pneumonia, bilateral 08/17/20 21 Diverticulitis [...] materials from doctor or pharmacy Sometimes 09/22/2023 [facility] Utilities Answer Date Recorded In the past 12 months has th e [employer], gas, oil, or water [employer] threatened to shut off services in your home? No 03/28/2025 Social Connection and Isolation Panel Answer Date Recorded In a typical week, how many times do you talk on the phone with family, friends, or neighbors? More than three times a week 03/28/2025 How often do you get togethe r with friends or relatives? More than three times a week 03/28/2025 How often do you attend [facility] or synagogue services? Never 03/28/2025 Do you belong to any clubs o r organizations such as baptism groups, unions, fraternal or athletic groups, or school groups? No 03/28/2025 How often do you attend meet ings of the clubs or organizations you belong to? Never 03/28/2025 Are you , , di vorced, , never , or living with a partner? 03/28/2025 AUDIT-C Answer Date Recorded Q1: How often do you have a drink containing alcohol? Never 01/01/2025 Q2: How many drinks containi ng alcohol do you have on a typical day when you are drinking? Patient does not drink Q3: How often do you have si x or more drinks on one occasion? Never 01/01/2025 Overall Financial Resource Strain (CARDIA) Answe r Date Recorded How hard is it for you to pa y for the very basics like food, housing, medical care, and heating? Not very hard 03/28/2025 PHQ-2 Answer Date Recorded PHQ-2 Total Score (If total score is 3 or more points, staff should administer the PHQ-9) 0 01/01/2025 Hunger Vital Sign Answer Date Recorded Within the past 12 months, y ou worried that your food would run out before you got the money to buy more. Never true 03/28/20 25 Within the past 12 months, t he food you bought just didn't last and you didn't have money to get more. Never true 03/28/2025 PRAPARE - Transportation Answer Date Re corded In the past 12 months, has l ack of transportation kept you from medical appointments or from getting medications? No 03/12 In the past 12 months, has l ack of transportation kept you from meetings, work, or from getting things needed for daily living? No 03/28/2025 Housing Stability Vital Sign Answer Lucas e [...] place to sleep or slept in a prison (including now)? No 10/17/2023 PHQ-9 Answer Date Recorded PHQ-9 Total Score 4 01/01/2025 Housing Stability Vital Sign Answer Lucas e Recorded In the last 12 months, was t here a time when you were not able to pay the mortgage or rent on time? No 03/28/2025 In the past 12 months, how m any times have you moved where you were living? 0 03/28/2025 At any time in the past 12 m [facility], were you homeless or living in a prison (including now)? No 03/28/2025 Personal Safety Answer Date Recorded Have you ever been in or are you currently in a harmful physical or emotional relationship or is someone making you feel afraid or unsafe? Denies 03/27/2025 Comments No Sex and Gender Information Value Date Recorded Sex Assigned at Not on file Legal Sex Female 1:41 PM COAL HAULER OPERATOR Gender Identity Not on file Sexual [...] Sign Reading Time Taken Comments Blood Pressure 112/62 04/24/2025 10:37 AM CDT Pulse 88 04/24/2025 10:37 AM CDT Temperature 36.2 C (97.1 F) 04/24/2025 10:37 AM CDT Respiratory Rate 20 04/24/2025 10:37 AM CDT Oxygen Saturation 98% 04/24/2025 10:37 AM CDT 5L 02 Inhaled Oxygen Concentration - - Weight 104.8 kg (231 lb) 04/24/2025 10:37 AM CDT Height 162.6 cm (5' 4) 04/24/2025 10:37 AM CDT Body Mass Index 39.65 04/24/2025 10:37 AM CDT Plan of Treatment Health Maintenance Due Date Last Done Comments DTaP/Tdap/Td Vaccine (1 - Tdap) 1969 Zoster Vaccine (1 of 2) 2008 Osteoporosis Screening-Bone Density Scan 02/22/2025 02/22/2023 Breast Cancer Screening-Mammogram 04/09/2025 04/09/2024, 04/06/2023, 10/07/2022, Additional history exists Covid-19 Vaccine (4 - 2024-2 6 season) 2025 07/09/2022, 07/31/2021, 07/03/2021 Influenza Vaccine (#1) 2025 , 08/02/2023, 06/25/2022, Additional history exists Depression Screening 01/01/2026 01/01/2025, 01/01/2025, 10/29/2024, Additional history exists Well Visit 65+ 01/01/2026 01/01/2025, 03/29/2023 Fall Risk Assessment 04/02/2026 04/02/2025, 01/01/2025, 03/29/2023 Cervical Cancer Screening-Pa p and HPV 12/23/2027 [...] Colon Cancer Screening-Sigmoidoscopy Discontinued 10/28/2023, 06/21/2019, 01/27/2017 Goals Goal Patient Goal Type Associated Problems Recent Progress Patient-Stated? Author ACO SW Goal - Patient can identify and utilize needed community resources ACO Care Management On track( 025 10:21 AM COAL HAULER OPERATOR) Bev Walton, COMMUNITY SERVICE COORDINATOR Note: Problem: Need for Community Resources Interventions: - Provide patient/family with a list of appropriate resources for their specific need. - Help to coordinate resources. - Follow up to ensure patient/family has connected with the appropriate resources / personnel. Medical Devices Implanted Type Area News Camera Person Device Identifier Shelf Expiration Date Model / Serial / Lot Left Foot Screws Foot Procedures Procedure Name Priority Date/Time Associated Diagnosis Comments DIAGNOSTIC MAMMOGRAM BILATERAL W SUKUMAR Schedule Routine, Read Routine (OP Routine) 04/09/2024 8:33 AM CDT Follow-up examination of abnormal mammogram COLONOSCOPY 10/28/2023 3:01 PM COAL HAULER OPERATOR HEPATITIS C ANTIBODY Routine 08/09/2023 1:28 PM COAL HAULER OPERATOR DEXA AXIAL SKELETON BONE DENSITY 1 [...] Recently Relevant to Health Maintenance Results * Diagnostic Mammogram Bilateral W Sukumar (04/09/2024 [...] Gen Anderson M.D. RL: REBECCA Report ID: [id number] Reading Location: [facility] us Haleigh Young MD IMG MAMMO PROCEDURE S Final Result * COLONOSCOPY (10/28/2023 3:01 PM COAL HAULER OPERATOR) Anatomical Region Laterality Modality Other Narrative Procedure Note Jammie Burdick MD - 10/28/2023 3:01 PM CST [facility] ENDOS[facility] Patient Name: Dipti Luna Procedure Date: 10/28/2023 3:01 PM Date of : 1960 Admit Type: Outpatient Age: 63 Gender: Female Attending MD: Jammie Burdick M.D. Room: [facility] ENDOSCOPY ROOM 06 Note Status: Finalized Procedure: [...] The scope was passed under direct vision.The [id number] colonoscope was introduced through theanus and advanced [...] On: 10/28/2023 3:01 PM Recognized by the [employer] for promoting quality in endoscopy Jammie Burdick MD ENDOSCOPY PROCEDURES Tash l Result * Hepatitis C antibody Blood (08/09/2023 1:28 PM COAL HAULER OPERATOR) Hep C Ab Nonreactive Nonreactive [facility]T [...] revised on 2019. Blood 08/09/2023 1:28 PM COAL HAULER OPERATOR 08/09/2023 6:31 PM COAL HAULER OPERATOR Jammie Burdick MD LAB MICROBIOLOGY - GENERA L ORDERABLES Final Result [facility] [address] [facility] Department [place] [address] * DEXA Axial Skeleton Bone Density Multi Site (02/22/2023 10:45 AM CDT) Anatomical Region Laterality Modality Body N/A Mammography 02/22/2023 3:45 PM CDT Narrative 02/22/2023 3:45 PM CDT EXAM DESCRIPTION: DEXA AXIAL SKELETON BONE DENSITY 1 OR MORE SITES REASON FOR STUDY: 62 y/o year old F with given history of screening. News Camera Person/Model: Birdpost A (S/N [id number]) CLINICAL INFORMATION: Current height: 64 inches Maximum [...] Elodia Recinos M.D. TW: BEV Report ID: [id number] Reading Location: [id number] Procedure Note Elodia Recinos MD - 02/22/2023 EXAM DESCRIPTION: DEXA AXIAL SKELETON BONE DENSITY 1 OR MORE SITES REASON FOR STUDY: 62 y/o year old F with given history of screening. News Camera Person/Model: Birdpost A (S/N [id number]) CLINICAL INFORMATION: Current height: 64 inches Maximum [...] Elodia Recinos M.D. TW: BEV Report ID: [id number] Reading Location: [id number] Brenda Stewart SHOT DROPPER IMG DXA PROCEDURES Final Result * Pap and High Risk HPV, reflex to Genotyping (12/22/2022 7:56 AM CDT) Thin prep (Pap test) 12/22/2022 7:56 AM CDT 12/23/2022 7:56 AM CDT Narrative PATHOLOGY [facility] - 12/28/2022 11:38 AM CDT [facility] Department of Pathology [address] [place] [address] Final Report with Addendum Note to Patients: [...] the details. Patient Name: DIPTI LUNA Address: [address] [place] [address], [address] [address] [place], [place] [address] Gender: F : 1960 (Age: 62) Service: Location: [facility] : [id number] [facility] #: [id number] Patient Type: [facility] SPECIMEN Taken: 12/22/2022 Received: 12/23/2022 Accessioned:: 12/24/2022 Reported: 12/28/2022 Physician(s): Nia Alfred M.D. [facility] Diagnosis: SOURCE OF SPECIMEN SCREENING THIN PREP [...] determined by the Surgical Pathology Department at [facility] as part of an ongoing quality assistant program and in compliance with federally mandated [...] characteristics determined by the Surgical Pathology Department [facility]. It has not been cleared or approved by the U. S. Food and Drug Administration. Nia Alfred MD LAB CYTOLOGY ORDERABLES F inal Result PATHOLOGY [facility] from Last 3 Months or Most Recently Relevant to Health Maintenance Insurance [facility] Advance Directives For more information, please contact: [phone] Documents on File Type Date Recorded Patient Water Fabricator Operator Expl anation ADVANCE DIRECTIVE 02/01/2024 1:59 PM POLST - Phys Order for PT Preferences ADVANCE DIRECTIVE 01/30/2024 1:03 PM Power of Online Communications Manager-Medical ADVANCE DIRECTIVE 06/02/2022 12:57 PM Jami r of Online Communications Manager-Medical ADVANCE DIRECTIVE 06/02/2022 12:56 PM Yoon ng Will * LIMITED - No CPR (Latest Code Status on File) Date Activated Date Inactivated Comments 03/27/2025 6:42 PM 04/02/2025 6:30 PM Question Answer Comments Provide aggressive medical m anagement before a full cardiopulmonary arrest occurs. Use antibiotics, IV Fluids, and medical treatment unless specifically selected below: No intubation * LIMITED - No CPR Date Activated Date Inactivated Comments 02/01/2024 1:55 PM 02/04/2024 4:51 PM * Full Code Date Activated Date Inactivated Comments 01/28/2024 11:17 PM 02/01/2024 1:55 PM * Full Code Date Activated Date Inactivated Comments 06/24/2022 5:32 PM 06/25/2022 9:38 PM * Full Code Date Activated Date Inactivated Comments 05/31/2022 2:29 PM 06/02/2022 10:04 PM Care Teams Sap Crm Developer Relationship Specialty Start Date End Date Haleigh Young MD [address] [place] [address] PCP - General Family Medicine 11/24/21 Luis Saunders MD Referring Physician Gastroenterology 07/31/18 Jammie Burdick MD Referring Physician Gastroenterology 07/31/18 Ervin Garcia MD [address] [facility] [address] [place] [address] Consulting Physician Pulmonary Disease 07/08/20 Jean Carlos Berrios MD [address] [facility] [place] [address] Referring Physician Obstetrics and Gynecology 02/23/22 Braden Sherwood DO [address] [facility] [address] [place] [address] Referring Physician Psychiatry 06/04/22 Ladonna Martinez, COLLIN [address] [facility] [address] [place] [address] Nurse Practitioner Nurse Practitioner 10/31/23 Kamila Witt NP [address] [facility] [address] [place] [address] Nurse Practitioner Hospice and Palliative Medicine 03/01/24
--- OUTSIDE RECORDS SUMMARY | 2025-07-04 14:49 | XMS_ITS | Encounter Summary ---
Author Organization [facility] Address [address] [place] [address] Care Team Providers Care Epic Beacon Specialists Name Role Phone Maya Mcclain MD Primary Care Provider [phone] Encounter Details Date Type Department Care Team (Late st Contact Info) Description 10/14/2023 Lab Requisition [facility] - DermPath Lab [address] [facility] [place] [address] Ketan Sheppard MD [facility] DERMATOLOGY [address] [place] [phone] Dermatitis, unspecified Social History Tobacco Use Types Packs/Day Years Used Date Smoking Tobacco: Former Cigarettes Q uit: 10/24/2009 Smokeless Tobacco: Never Alcohol Use Standard Drinks/Week Comments Never 0 (1 standard drink = 0.6 oz pur e alcohol) Comments Unknown Sex and Gender Information Value Date Recorded Sex Assigned at Not on file 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 Gender Identity Not on file Sexual Orientation Not on file documented as of this encounter Plan of Treatment Not on file documented as of this encounter Procedures Procedure Name Priority Date/Time Associated Diagnosis Comments DERMATOPATHOLOGY Routine 10/14/2023 3:33 AM VACUUM FRAME OPERATOR Dermatitis, unspecified documented in this encounter Results * DERMATOPATHOLOGY (10/14/2023 3:33 AM VACUUM FRAME OPERATOR) Case Report Dermatopathology Report Case: [id number] Authorizing Provider: Ketan Sheppard MD Collected: 10/14/2023 03:33 AM Ordering Location: [facility] DermPath Lab Received: 10/17/2023 02:24 PM Pathologist: Ruby Licona MD Specimen: Skin, left buttock 4:27 PM [facility] DERMATOPATHOLOGY LABORATORY Final Diagnosis Specimen A. SKIN, left buttock: EPIDERMAL NECROSIS SUGGESTIVE OF EXCORIATION (L98.499) (see microscopic description) 4:27 PM [facility] DERMATOPATHOLOGY LABORATORY at 1627 VACUUM FRAME OPERATOR Clinical History Atopic dermatitis vs contact dermatitis other vs scabies 4:27 PM [facility] DERMATOPATHOLOGY [facility]ORATORY Gross Description Specimen A: Received is one formalin filled container labeled with the patient's name and designated left buttock. The specimen consists of a punch biopsy measuring 4x4x4 mm, bisected. Jar 0. 4:27 PM [facility] DERMATOPATHOLOGY [facility]ORATORY Microscopic Description Specimen A. SKIN, left buttock: The epidermis is focally necrotic and covered with a scale-crust. There is fibrin at the base. Additional deeper sections were obtained and reviewed. Grocott's methenamine silver (GMS) stain is negative for fungal elements in the sections examined. 4:27 PM [facility] DERMATOPATHOLOGY LABORATORY Disclaimer An external and internal positive and negative controls are appropriate for the histochemical, immunohistochemical and immunofluorescence stain(s) in this case (if any), except where stated explicitly. The performance characteristics of the stain(s) cited in this report were developed and its performance characteristic determined by the Dermatopathology Laboratory at [facility] [place] [facility], directed by Dr. Jaylan Cunningham. These tests need not be, and therefore are not, approved by the [place] Food and Drug Administration. The tests are used for clinical purposes. Billing Codes Specimen Charges Stain Charges 15551 1 20512 1 4 4:27 PM [facility] DERMATOPATHOLOGY [facility]ORATORY Embedded Images 4 4:27 PM [facility] DERMATOPATHOLOGY [facility] Pathology/Cytolo gy TISSUE SPECIMEN FROM SKIN / Unknown 10/14/2023 3:33 AM VACUUM FRAME OPERATOR 10/17/2023 2:24 PM VACUUM FRAME OPERATOR us Ketan Sheppard MD LAB - PATHOLOGY/CYTOLOGY [facility]E [facility] Final Result DERMATOPATHOLOGY LABORATORY [facility] - Department of Dermatology [facility] Specialized Medicine [address] [place] [address], [address] [phone] documented in this encounter Visit Diagnoses Diagnosis Dermatitis, unspecified documented in this encounter Care Teams Epic [facility] Relationship Specialty Start Date End Date Maya Mcclain MD [address] [place] [phone] PCP - General 10/31/20 documented as of this encounter
--- OUTSIDE RECORDS SUMMARY | 2025-07-04 14:49 | XMS_ITS | Patient Health Record ---
Author Organization [facility] Address [address] [place] [address] Care Team Providers Care Refiner Operator Name Role Phone Razia Salcedo Primary Care Provider [phone] Jez Giraldo Unavailable [phone] Allergies Allergen (clinical drug ingredient) Drug/Non Drug [...] W/U Status Risk Notes Problem Allergic rhinitis (20617162) Allergic rhinitis (J30.9) Active confirmed Problem Depression (490890886) Depression (F32.9) Active confirmed Problem Menopausal symptom (42783808) Hot flashes due to menopause (N95.1) Active confirmed Problem Osteoarthritis (455167108) Osteoarthritis involving multiple joints on both sides of body (M15.9) Active confirmed Problem Cervical arthritis (125866074) Cervical arthritis (M46.92) Active confirmed Problem Iron deficiency anemia (27823562) Iron deficiency anemia, unspecified (D50.9) 0 confirmed Young Problem Morbid obesity (disorder) (562205117) Morbid (severe) obesity due to excess calories (E66.01) 0 confirmed Young Problem Bipolar disorder (42130901) Bipolar disorder, unspecified (F31.9) 0 confirmed Young Problem Anxiety disorder (840564320) Anxiety disorder, unspecified (F41.9) 0 confirmed Young Problem Chronic obstructive pulmonary disease (30077563) Chronic obstructive pulmonary disease, unspecified (J44.9) 0 confirmed Young Problem Gastro-esophageal reflux disease with esophagitis (555328869) Gastro-esophageal reflux disease with esophagitis (K21.0) 0 confirmed Young Problem Peptic ulcer without haemorrhage AND without perforation (47039670) Peptic ulcer, site unspecified, unspecified as acute or chronic, without hemorrhage or perforation (K27.9) 0 confirmed Young Problem Hyperlipidemia (17870207) Other and unspecified hyperlipidemia (E78.5) 0 confirmed Young Problem Vitamin D deficiency (92383161) Vitamin D deficiency (E55.9) 0 confirmed Young Problem Disorder of lumbar disc (297711638) Lumbar disc disorder (M51.9) 0 confirmed Young Plan Of Treatment Pending Test Test Name Order Date Urinalysis, Routine 07/23/2016 REFLEXIVE URINE CULTURE 07/23/2016 Insurance Providers Payer Name Payer Address Payer Phone Subscriber Number Group Number Insured Name Patient Relationship to Insured Coverage Start Date Coverage End Date [employer] PPO [address] [address] [place] [address] [id number] Dipti Luna Self - patient is the insured 6 Medical (General) History Medical History History ICD Code Tonsillectomy Alcoholism Anxiety TAHBSO Right Rotator Cuff Tendinopathy PUD Iron Deficiency Anemia Vitamin D Deficiency Bladder Sling Borderline Diabetes Mellitus COPD
--- OUTSIDE RECORDS SUMMARY | 2025-07-04 14:49 | XMS_ITS | Clinical Summary ---
Author Organization [facility] [employer] Address [address] [address] Care Team Providers Care Unit Receptionist Name Role Phone Maya Mcclain MD Primary Care Provider [phone] Source Comments [facility] [employer],non-owned Affiliates and Associated Physician Practices is amultiple site organization consisting of ambulatory clinics and hospital sitesin [place], [place], [place] and [place]. This disclosure is being madepursuant to the Care Everywhere program and may not contain all information available regarding this patient. 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
--- OUTSIDE RECORDS SUMMARY | 2025-07-04 14:49 | XMS_ITS | Encounter Summary ---
Author Organization [facility] Address [address] [place] [address] Care Team Providers Care Printer Maintainer Name Role Phone Maya Mcclain MD Primary Care Provider [phone] None, Provider Primary Care Provider Haleigh Bai MD Primary Care Provider Encounter Details Date Type Department Care Team (Late st Contact Info) Description 12/08/2020 Prep for Procedure [facility] [place], [place] [phone] Luis Saunders MD [address] [id number] Social History Tobacco Use Types Packs/Day Years [...] DETECTED NOT DETECTED 12/09/2020 6:16 PM CDT [facility] Comment: A Not Detected (negative) [...] providers and patients using the following websites: https://www.[employer].com/home/Covid-19/HCP/Quest[facility]/fact- sheet.html https://www.[employer]atro/home/Covid-19/Patients/ QuestIVD/fact-sheet.html This test has been authorized by the FDA under an Emergency Use Authorization (EUA) for use by authorized laboratories. Due to the current public health emergency, [facility] is receiving a high volume of samples [...] about COVID-19 can be found at the [facility] website: www.[employer].El Teatro/Covid19. Test performed at [facility] [address] [address] Director: JAYLEEN CHO DO,MPH FIRST TEST NO 12/08/2020 1:31 PM CDT [facility] EMPLOYED IN HEALTHCARE NO 12/08/2020 1:31 PM CDT [facility] SYMPTOMATIC DEFINED BY CDC NO 12/08/2020 1:31 PM CDT [facility] DATE OF SYMPTOM ONSET UNKNOWN 12/08/2020 1:33 PM CDT [facility] HOSPITALIZATION STATUS NO 12/08/2020 1:31 PM CDT [facility] PATIENT IN ICU NO 12/08/2020 1:31 PM CDT [facility] RESIDENT OF [facility] NO 12/08/2020 1:31 PM CDT [facility] UNKNOWN 12/08/2020 1:33 PM CDT [facility] PATIENT'S RACE WHITE OR 12/08/2020 1:31 PM CDT [facility] ETHNICITY NONHISPANIC 12/08/2020 1:31 PM CDT [facility] SOURCE (QST) NASOPHARYNGEAL SWAB 12/08/2020 1:31 PM CDT [facility] NASOPHARYNGEAL SWAB / Unknown 12/08/2020 11:15 AM CDT us Luis Saunders MD MICROBIOLOGY - GENERAL KHLOE DURAND Final Result [facility] [address] [place] [address], [place] [phone] [facility] [address] [place] [address], documented in this encounter Visit Diagnoses Diagnosis Dysphagia- Primary Dysphagia, unspecified documented in this encounter Additional Health Concerns Infection Onset Date Last Indicated Resolved Time COVID-19 Rule Out 12/08/2020 12/08/2020 12/09/2020 6:16 PM CDT COVID-19 Rule Out 05/06/2022 05/06/2022 05/06/2022 11:48 PM CDT documented as of this encounter Care Teams Printer Maintainer Relationship Specialty Start Date End Date Maya Mcclain MD [facility] [address] [place] [address] PCP - General FAMILY PRACTICE 10/23/20 05/05/22 None, MD Margot PCP - General 05/06/22 12/18/24 Haleigh Young MD [facility] [address] [facility] [address] [place] [address] PCP - General FAMILY PRACTICE 12/19/24 documented as of this encounter
--- OUTSIDE RECORDS SUMMARY | 2025-07-04 14:50 | XMS_ITS | Patient Health Record ---
Author Organization [facility] Address [address] [place] [address] Care Team Providers Care Laundry Aid Name Role Phone Angelina Taylor Primary Care Provider [phone] Nuvia Ireland Unavailable [phone] Diane Burgess Unavailable [phone] Allergies Allergen (clinical drug ingredient) Drug/Non Drug Allergy documented on EMR Reaction Allergy Type Onset Date Status codeine Codeine anaphylaxis Drug Allergy Activ e Reason For Referral No Information Medications Medication SIG (Take, Route, Frequency, Duration) Notes Start Date End Date Status valACYclovir HCl 500 MG 1 tablet Orally Once a day Active Metoprolol Succinate 50 MG 1 capsule Orally Once a day Active Morphine Sulfate 15 MG 1 tablet as neede d Orally twice a day Active Dilaudid 2 MG 1 tablet as needed Orally every 4 hrs Active Dupixent 300 MG/2ML as directed Subcutan eous every other week Active Trelegy Ellipta 200-62.5-25 MCG/ACT 1 puff Inhalation Once a day Active OneTouch Verio Activ e Albuterol Sulfate (2.5 MG/3ML) 0.083% 3 mL as needed Inhalation four times a day Active LORazepam 1 MG 1 tablet up to 6 hector es daily as needed Orally daily Active oxyCODONE HCl ER 15 MG 1 tablet as neede d Orally three times a day PRN Not-Taking Venlafaxine HCl ER 150 MG 2 capsules with food Orally Once a day; Duration: 30 days Active Social History Tobacco Use: Social History Observation Description Date Details (start date - stop date) Former Smoker NA - NA Tobacco Control (Standard) Question Answer Notes Tobacco use: Former smoker How long has it been since you last smoked? Grea ter than 10 years Problems Problem Type SNOMED Code ICD Code Onset Dates Problem Status W/U Status Risk Notes Problem Generalized anxiety disorder (68175850) RUSS (generalized anxiety disorder) (F41.1) 025 Active confirmed consideration to separate panic disorder Problem Insomnia due to mental disorder (09393503) Insomnia due to mental disorder (F51.05) 025 Active confirmed Problem Major depressive disorder (211390412) MDD (major depressive disorder) (F32.9) 025 Active confirmed Problem Nondependent cocaine abuse in remission (225773303) Cocaine use disorder, mild, in sustained remission (F14.11) 025 Active confirmed last use age 46 Vital Signs Weight 217 lbs 06/03/2025 Encounters Encounter Location Date Provider Diagnosis [address] [address] 11/08/2024 Diane Burgess MDD (major depressive disorder) F32.9 ; RUSS (generalized anxiety disorder) F41.1 ; Insomnia due to mental disorder F51.05 and Cocaine use disorder, mild, in sustained remission F14.[address] [address] 12/20/2024 Diane Burgess RUSS (generalized anxiety disorder) F41.1 ; MDD (major depressive disorder) F32.9 ; Insomnia due to mental disorder F51.05 and Cocaine use disorder, mild, in sustained remission F14.[address] [address] 02/14/2025 Diane Burgess RUSS (generalized anxiety disorder) F41.1 ; MDD (major depressive disorder) F32.9 ; Insomnia due to mental disorder F51.05 and Cocaine use disorder, mild, in sustained remission F14.[address] [address] 03/27/2025 Angelina Taylor RUSS (generalized anxiety disorder) F41.1 ; MDD (major depressive disorder) F32.9 ; Insomnia due to mental disorder F51.05 and Cocaine use disorder, mild, in sustained remission F14.11 Count Includes [facility] [address] [address] 04/15/2025 Angelina Brandon RUSS (generalized anxiety disorder) F41.1 ; MDD (major depressive disorder) F32.9 ; Insomnia due to mental disorder F51.05 and Cocaine use disorder, mild, in sustained remission F14.11 Count Includes [facility] [address] [address] 06/03/2025 Angelina Brandon RUSS (generalized anxiety disorder) F41.1 ; MDD (major depressive disorder) F32.9 ; Insomnia due to mental disorder F51.05 and Cocaine use disorder, mild, in sustained remission F14.[address] [place] [address] 03/27/2025 Angelina Taylor [place] [address] [place] [address] 11/09/2024 Kyliz Burgess RUSS (generalized anxiety disorder) F41.1 [address] [place] [place] [address] 11/09/2024 Nuvia Ireland [address] [place] [address] 11/09/2024 Diane Burgess [address] [place] [address] 12/12/2024 Kyria Burgess RUSS (generalized anxiety disorder) F41.1 Count Includes [facility] [address] [address] 02/15/2025 Diane Burgess [address] [place] [address] 02/22/2025 Kyria Burgess MDD (major depressive disorder) F32.9 Count Includes [facility] [address] [address] 04/22/2025 Angelina Taylor RUSS (generalized anxiety disorder) F41.1 Count Includes [facility] [address] [place] [address] 04/24/2025 Angelina Taylor Assessments Encounter Date Diagnosis (ICD Code) Assessment Notes Treatment Notes Treatment Clinical Notes Section Notes 11/08/2024 RUSS (generalized anxiety disorder) (ICD-10 - F41.1) consideration to separate panic disorder 11/08/2024 MDD (major depressive disorder) (ICD-10 - F32.9) 12/12/2024 RUSS (generalized anxiety disorder) (ICD-10 - F41.1) consideration to separate panic disorder 12/20/2024 RUSS (generalized anxiety disorder) (ICD-10 - F41.1) consideration to separate panic disorder 02/14/2025 RUSS (generalized anxiety disorder) (ICD-10 - F41.1) consideration to separate panic disorder 03/27/2025 RUSS (generalized anxiety disorder) (ICD-10 - F41.1) consideration to separate panic disorder 06/03/2025 RUSS (generalized anxiety disorder) (ICD-10 - F41.1) consideration to separate panic disorder 04/22/2025 RUSS (generalized anxiety disorder) (ICD-10 - F41.1) consideration to separate panic disorder 04/15/2025 RUSS (generalized anxiety disorder) (ICD-10 - F41.1) consideration to separate panic disorder 04/15/2025 MDD (major depressive disorder) (ICD-10 - F32.9) 02/22/2025 MDD (major depressive disorder) (ICD-10 - F32.9) 11/09/2024 RUSS (generalized anxiety disorder) (ICD-10 - F41.1) consideration to separate panic disorder 04/15/2025 Insomnia due to mental disorder (ICD-10 - F51.05) 06/03/2025 MDD (major depressive disorder) (ICD-10 - F32.9) 03/27/2025 MDD (major depressive disorder) (ICD-10 - F32.9) 02/14/2025 MDD (major depressive disorder) (ICD-10 - F32.9) 12/20/2024 MDD (major depressive disorder) (ICD-10 - F32.9) 11/08/2024 Insomnia due to mental disorder (ICD-10 - F51.05) Today's visit: Patient is a 64-year-old female who presents for a psychiatric evaluation over Zoom and is located in [place], caregiver present in room. PHQ-9 score of [...] or be administered own oral medications per [facility] protocols. Provided informed consent with understanding of side effects, adverse effects, risks and benefits as well as alternative treatments as previously discussed and with the above recommended medications & other aspects of the treatment program. Agrees to return sooner if symptoms worsen or suicidal or homicidal ideations occur. 11/08/2024 Cocaine use disorder, mild, in sustained remission (ICD-10 - F14.11) last use age 46 12/20/2024 Insomnia due to mental disorder (ICD-10 - F51.05) Today's visit: Patient is a 64-year-old female who presents for a psychiatric follow up over phone and is in [place]. Previous PHQ-9 score of 21, today is 17. Continue mirtazapine 15mg qhs (helping with sleep). Continue alprazolam at the current dose, with the long-term goal to taper if anxiety is controlled with venlafaxine. Increase venlafaxine from 75mg to 150mg daily for better anxiety control and possible improvement in concentration and for depression. Discussed Adderall; not recommended at this time. Will follow up in 2 months. No acute safety concerns the time of this appt, he is agreeable to treatment plan and was provided an opportunity to ask questions. May self-administer medications or be administered own oral medications per [facility] protocols. Provided informed consent with understanding of side effects, adverse effects, risks and benefits as well as alternative treatments as previously discussed and with the above recommended medications & other aspects of the treatment program. Agrees to return sooner if symptoms worsen or suicidal or homicidal ideations occur. 02/14/2025 Insomnia due to mental disorder (ICD-10 - F51.05) Today's visit: Patient is a 64-year-old female who presents for a psychiatric follow-up over phone and is in [place]. Last appt 12/20/24 and was increased on venlafaxine to 150 mg. Previous PHQ-9 score of 17, today is 18. Reports some improvement on venlafaxine however interpersonal stressors with son leaving (feeling more lonely) and chronic pain/medical conditions also significantly impacting her mood. She would like to trial increase dose of Effexor to 225 mg. Continues to take alprazolam for ongoing anxiety/panic-denie s any s/e. Will continue mirtazapine 7.5 mg for sleep - has been helpful. No acute safety concerns the time of this appt, he is agreeable to treatment plan and was provided an opportunity to ask questions. May self-administer medications or be administered own oral medications per [facility] protocols. Provided informed consent with understanding of side effects, adverse effects, risks and benefits as well as alternative treatments as previously discussed and with the above recommended medications & other aspects of the treatment program. Agrees to return sooner if symptoms worsen or suicidal or homicidal ideations occur. 03/27/2025 Insomnia due to mental disorder (ICD-10 - F51.05) 06/03/2025 Insomnia due to mental disorder (ICD-10 - F51.05) 04/15/2025 Cocaine use disorder, mild, in sustained remission (ICD-10 - F14.11) last use age 46 06/03/2025 Cocaine use disorder, mild, in sustained remission (ICD-10 - F14.11) last use age 46 03/27/2025 Cocaine use disorder, mild, in sustained remission (ICD-10 - F14.11) last use age 46 02/14/2025 Cocaine use disorder, mild, in sustained remission (ICD-10 - F14.11) last use age 46 12/20/2024 Cocaine use disorder, mild, in sustained remission (ICD-10 - F14.11) last use age 46 03/27/2025 Other May self-administer medications or be administered own oral medications per [facility] protocols. Provided informed consent with understanding of side effects, adverse effects, risks and benefits as well as alternative treatments as previously discussed and with the above recommended medications & other aspects of the treatment program. Agrees to return sooner if symptoms worsen or suicidal or homicidal ideations occur. Medication Hx: -Paxil -Prozac -Wellbutrin -Nortriptyline -Effexor for a long time and effective for anxiety, helped with thinking -Abilify 5 mg -hydroxyzine (ineffective) -trazodone (states she has to crawl when she takes it) -Seroquel (does not like the way it makes her feel) Plan: -Continue Venlafaxine HCl ER 150 mg once daily w/ food TOTAL 225 MG -Start Venlafaxine HCl ER 75 mg once daily w/ food TOTAL 225 MG -Continue Alprazolam 1 mg up to four times daily PRN *30 day filled 03/23 -Continue Mirtazapine 15 mg 0.5 tablet QHS for insomnia -Start OTC Melatonin 5-10 mg QHS PRN *labs reviewed in [facility], drawn on 02/2025 -Follow up: 3 weeks [] Hard Rx handed to patient [] Rx phoned into pharmacy [x] Rx faxed/e-prescribed into pharmacy [x] PDMP Reviewed [] [facility] Reviewed Encouraged by Angelina Taylor PMP- to: [x] consider utilizing therapist/counselor /social media marketing specialist/psychologist , referral given [] continue with therapist/counselor /social media marketing specialist/psychologist Psychoeducation: -Treatment options discussed in detail with patient/guardian verbalizing understanding of treatment rationales. -Side effects and benefits of all medications prescribed discussed at length between psychiatric prescribing provider and patient/guardian along with the risks associated of huyv-ny-zyed interactions, including but not limited to prescription medications, OTC medications, vitamins, minerals and herbal supplements. -Patient/Guardian and provider dialogue showcased verbalized understanding from patient on rationales of medication risk vs benefits. -Information with neurobiology of presenting neurotransmitter disorder, mood stability, sleep hygiene and 7-8 hours of uninterrupted sleep per night with wakeful and refreshed awakening and day long alertness discussed. -Reduction of stress and anxiety to aid in focus and concentration discussed, again, with patient/guardian physically nodding, voicing understanding, and engaged in treatment plan with Angelina Taylor [facility]. -Perceiving complete understanding of rationale by patient/guardian and willingness to adhere to formulated plan of care by prescriber with patient/guardian buy-in, willingness to participate actively in plan of care and willing to take charge of own care. -Although geared for female patients, all patients/guardians are informed by prescribing provider of risks of medications that could potentially be taken by female/women within their [place] and that women who use medicine during have a higher chance of having a baby with defects. -Patient/Guardian denies being and/or knowing of women who are at present and denies wanting to become in the foreseeable future, 0-6 months from now. -Patient/Guardian again informed of the risk of pharmaceutical medications consumed during and how there are potential negative effects on the developing fetus. -Patient/Guardian verbalizes understanding of rationale and physically nods head in agreement that if a should occur, to consult with provider, MODELING AGENT and/or Nurse Supervisor Carding to determine if prescribed medications should or should not be continued. -Instructions regarding both the medical/pharmacolog ical and non-pharmacologic aspects of the treatments employed were given, and the patient/guardian seemed to understand this. Risks and benefits of treatment, and of non-treatment, were also discussed. The patient/guardian understands the more frequent side effects associated with the medications. -The use of psychotherapy was addressed today and will continue on an as needed basis for the foreseeable future. The choice is, of course, ultimately left to the patient/guardian. -Patient/Guardian was encouraged to make a follow-up appointment for the next visit. -Additional treatment was discussed and has been addressed on an ongoing basis within the context of this patient's illness, resources, progress, and other appropriate factors. Being compliant with a regular exercise routine, consistent medication use, ongoing psychotherapy, eating and sleeping well, as well as the importance of handling stress, was discussed. 04/15/2025 Other May self-administer medications or be administered own oral medications per [facility] protocols. Provided informed consent with understanding of side effects, adverse effects, risks and benefits as well as alternative treatments as previously discussed and with the above recommended medications & other aspects of the treatment program. Agrees to return sooner if symptoms worsen or suicidal or homicidal ideations occur. Medication Hx: -Paxil -Prozac -Wellbutrin -Nortriptyline -Effexor for a long time and effective for anxiety, helped with thinking -Abilify 5 mg -hydroxyzine (ineffective) -trazodone (states she has to crawl when she takes it) -Seroquel (does not like the way it makes her feel) Medication Plan: -Increase Venlafaxine HCl ER to 300 mg once daily w/ food -Switch Alprazolam to dissolvable 1 mg and increase to 1-1.5 tablets up to four times daily PRN -Increase Mirtazapine to 15 mg tablet QHS for insomnia -Continue OTC Melatonin 5-10 mg QHS PRN Treatment Plan: -If insurance will not pay for the Xanax disintegrating tablets, switch back to regular ones at new dose. -Patient is on hospice care -Follow up: 4 weeks [] Hard Rx handed to patient [] Rx phoned into pharmacy [x] Rx faxed/e-prescribed into pharmacy [x] PDMP Reviewed [] [facility] Reviewed Encouraged by Angelina Taylor PMHNP-BC to: [x] consider utilizing therapist/counselor /social media marketing specialist/psychologist , referral given [] continue with therapist/counselor /social media marketing specialist/psychologist Psychoeducation: -Treatment options discussed in detail with patient/guardian verbalizing understanding of treatment rationales. -Side effects and benefits of all medications prescribed discussed at length between psychiatric prescribing provider and patient/guardian along with the risks associated of bwpe-jc-[id number] interactions, including but not limited to prescription medications, OTC medications, vitamins, minerals and herbal supplements. -Patient/Guardian and provider dialogue showcased verbalized understanding from patient on rationales of medication risk vs benefits. -Information with neurobiology of presenting neurotransmitter disorder, mood stability, sleep hygiene and 7-8 hours of uninterrupted sleep per night with wakeful and refreshed awakening and day long alertness discussed. -Reduction of stress and anxiety to aid in focus and concentration discussed, again, with patient/guardian physically nodding, voicing understanding, and engaged in treatment plan with Angelina Taylor [facility]. -Perceiving complete understanding of rationale by patient/guardian and willingness to adhere to formulated plan of care by prescriber with patient/guardian buy-in, willingness to participate actively in plan of care and willing to take charge of own care. -Although geared for female patients, all patients/guardians are informed by prescribing provider of risks of medications that could potentially be taken by female/women within their [place] and that women who use medicine during have a higher chance of having a baby with defects. -Patient/Guardian denies being and/or knowing of women who are at present and denies wanting to become in the foreseeable future, 0-6 months from now. -Patient/Guardian again informed of the risk of pharmaceutical medications consumed during and how there are potential negative effects on the developing fetus. -Patient/Guardian verbalizes understanding of rationale and physically nods head in agreement that if a should occur, to consult with provider, MODELING AGENT and/or Nurse Supervisor Carding to determine if prescribed medications should or should not be continued. -Instructions regarding both the medical/pharmacolog ical and non-pharmacologic aspects of the treatments employed were given, and the patient/guardian seemed to understand this. Risks and benefits of treatment, and of non-treatment, were also discussed. The patient/guardian understands the more frequent side effects associated with the medications. -The use of psychotherapy was addressed today and will continue on an as needed basis for the foreseeable future. The choice is, of course, ultimately left to the patient/guardian. -Patient/Guardian was encouraged to make a follow-up appointment for the next visit. -Additional treatment was discussed and has been addressed on an ongoing basis within the context of this patient's illness, resources, progress, and other appropriate factors. Being compliant with a regular exercise routine, consistent medication use, ongoing psychotherapy, eating and sleeping well, as well as the importance of handling stress, was discussed. 06/03/2025 Other May self-administer medications or be administered own oral medications per [facility] protocols. Provided informed consent with understanding of side effects, adverse effects, risks and benefits as well as alternative treatments as previously discussed and with the above recommended medications & other aspects of the treatment program. Agrees to return sooner if symptoms worsen or suicidal or homicidal ideations occur. Medication Hx: -Paxil -Prozac -Wellbutrin -Nortriptyline -Effexor for a long time and effective for anxiety, helped with thinking -Abilify 5 mg -hydroxyzine (ineffective) -trazodone (states she has to crawl when she takes it) -Seroquel (does not like the way it makes her feel) -Mirtazapine Medication Plan: -Continue Venlafaxine XR 300 mg once daily w/ food -Stop Mirtazapine 15 mg tablet QHS for insomnia (not effective) -Continue OTC Melatonin 5-10 mg QHS PRN -Stop Alprazolam 1 mg and increase to 1 tablet up to four times daily PRN *Pt has been receiving Lorazepam 1 mg up to 6 times daily from Tanish[facility] Rosenthal per [facility] Treatment Plan: -Patient is on hospice care -Follow up: 4 weeks [] Hard Rx handed to patient [] Rx phoned into pharmacy [x] Rx faxed/e-prescribed into pharmacy [x] PDMP Reviewed [] [facility] Reviewed Encouraged by Angelina BORREGOP-BC to: [] consider utilizing therapist/counselor /social media marketing specialist/psychologist , referral given [] continue with therapist/counselor /social media marketing specialist/psychologist Psychoeducation: -Treatment options discussed in detail with patient/guardian verbalizing understanding of treatment rationales. -Side effects and benefits of all medications prescribed discussed at length between psychiatric prescribing provider and patient/guardian along with the risks associated of [id number] interactions, including but not limited to prescription medications, OTC medications, vitamins, minerals and herbal supplements. -Patient/Guardian and provider dialogue showcased verbalized understanding from patient on rationales of medication risk vs benefits. -Information with neurobiology of presenting neurotransmitter disorder, mood stability, sleep hygiene and 7-8 hours of uninterrupted sleep per night with wakeful and refreshed awakening and day long alertness discussed. -Reduction of stress and anxiety to aid in focus and concentration discussed, again, with patient/guardian physically nodding, voicing understanding, and engaged in treatment plan with Angelina BORREGOP-BC. -Perceiving complete understanding of rationale by patient/guardian and willingness to adhere to formulated plan of care by prescriber with patient/guardian buy-in, willingness to participate actively in plan of care and willing to take charge of own care. -Although geared for female patients, all patients/guardians are informed by prescribing provider of risks of medications that could potentially be taken by female/women within their [place] and that women who use medicine during have a higher chance of having a baby with defects. -Patient/Guardian denies being and/or knowing of women who are at present and denies wanting to become in the foreseeable future, 0-6 months from now. -Patient/Guardian again informed of the risk of pharmaceutical medications consumed during and how there are potential negative effects on the developing fetus. -Patient/Guardian verbalizes understanding of rationale and physically nods head in agreement that if a should occur, to consult with provider, MODELING AGENT and/or Nurse Supervisor Carding to determine if prescribed medications should or should not be continued. -Instructions regarding both the medical/pharmacolog ical and non-pharmacologic aspects of the treatments employed were given, and the patient/guardian seemed to understand this. Risks and benefits of treatment, and of non-treatment, were also discussed. The patient/guardian understands the more frequent side effects associated with the medications. -The use of psychotherapy was addressed today and will continue on an as needed basis for the foreseeable future. The choice is, of course, ultimately left to the patient/guardian. -Patient/Guardian was encouraged to make a follow-up appointment for the next visit. -Additional treatment was discussed and has been addressed on an ongoing basis within the context of this patient's illness, resources, progress, and other appropriate factors. Being compliant with a regular exercise routine, consistent medication use, ongoing psychotherapy, eating and sleeping well, as well as the importance of handling stress, was discussed. Plan Of Treatment Next Appt Details Provider Name:Angelina Son sourav, 07/11/2025 10:00:00 AM, [address] [place] [address], [id number], Insurance Providers Payer Name Payer Address Payer Phone Subscriber Number Group Number Insured Name Patient Relationship to Insured Coverage Start Date Coverage End Date Aetna Medicare [address] [place] [address] [id number] Dipti Luna Self - patient is the insured 5 MEDICAID [employer] [address] [place] [address] [id number] Dipti Luna Self - patient is the insured 5 Medical (General) History Medical History History ICD Code COPD Lupus Chronic pain Diverticulitis Surgical History Surgery Date(Month/Year) tubal ligation oopherectomy tonsillectomy hysterecomy Hospitalization History Reason Date(Month/Year) [address] for psych iatric inpatient for anxiety one time I had a nervous break down, last time in her 30s Psychiatric inpatient at [facility] for aggravation/HI, was there for a week age 46 Multiple for medical
--- NOTE | 2025-07-04 15:49 | P.HP_ITS ---
<Statement entered by Lydia Adams APRN - 07/11/25 19:21> Entered in error under the incorrect encounter. Disregard this note H&P: HPI History of Present Illness Date/Time: 07/04/25 15:49 Chief Complaint: Acute respiratory distress: GIP admission Narrative: 65-year-old female past medical history of end-stage COPD, anxiety, fibromyalgia presents to the ED on 07/04/2025 via EMS from home alone with complaints of increased shortness of breath and hypoxia. She is active with [facility] and lives alone. Patient was initially recommended for hospice care in November 2024. Unsure when she was actually admitted to hospice. Today is the patient's 3rd ED visit this month for acute on chronic respiratory failure. Patient did not revoked hospice and will be admitted under GIP for symptom control of dyspnea, pain, and anxiety. Will likely need placement due to inability to take care of herself and living home alone. Discontinued labs and care directed therapies. Comfort meds ordered. Review of Systems Review of Systems: ROS unobtainable: Yes unobtainable due to mental status PMFSH Past Medical History Medical History Anxiety Anemia in chronic illness Hospice care patient COPD exacerbation Acute on chronic respiratory failure with hypoxia Social History Social History Smoking status: Current some day smoker Tobacco type: cigarettes Additional smoking assessment comments: Uses vape pen. Quit smoking 2000. Alcohol intake: never Substance use: never Lack of Transportation: YES Lack of Food: Often True Current Housing: I Have Housing Concerned About Future Housing: No Difficulty Paying Gas/Electric Bills: No Difficulty Paying for Meds: No Currently Unemployed: No Education: High School Diploma/GED Difficulty w/ Childcare or Family Care: No Spiritual care concerns: No Meds Home Medications and Allergies Home Medications ?Medication ?Instructions ?Recorded ?Confirmed ?Type buspirone 5 mg tablet 5 mg PO TID 06/16/25 5 History hydromorphone 2 mg tablet 2 mg PO Q4H PRN pain 5 07/04/25 History morphine 15 mg tablet,extended 15 mg PO Q12H 06/16/25 07/04/25 History release albuterol sulfate 2.5 mg/3 mL 2.5 mg (3 mL) continuous 06/20/25 07/04/25 Rx (0.083 %) solution for nebulization nebulization QID 3 0 days #0 mL albuterol sulfate 90 mcg/actuation 2 puff inhalation Q 6H PRN Wheezing 06/20/25 07/04/25 Rx aerosol inhaler 30 days #0 grams aspirin 81 mg tablet,delayed 81 mg PO DAILY 30 days #0 tabs 06/20/25 07/04/25 Rx release benzonatate 200 mg capsule 200 mg PO TID cough 30 days #0 caps 06/20/25 07/04/25 Rx dupilumab 300 mg/2 mL subcutaneous 300 mg (2 mL) subcu t .COMPLEX 30 06/20/25 07/04/25 Rx pen injector (Dupixent) days #0 mL fluticasone fur. 200 mcg-umeclid 1 inh inhalation RAMON Y 30 days #0 06/20/25 07/04/25 Rx 62.5 mcg-vilant 25 mcg ea inhalat.powder (Trelegy Ellipta) guaifenesin 1,200 mg tablet, 1,200 mg PO Q12H 30 days #0 tabs 06/20/25 07/04/25 Rx extended release 12 hr (Mucinex) hydromorphone 2 mg tablet 2 mg PO Q4H PRN pain 30 days #0 06/20/25 07/04/25 Rx tabs lorazepam 1 mg tablet 1 mg PO Q4H PRN anxiety 30 d ays #0 06/20/25 07/04/25 Rx tabs metoprolol tartrate 25 mg tablet 25 mg PO Q12H 30 days #0 tabs 06/20/25 07/04/25 Rx mirtazapine 30 mg disintegrating 30 mg PO HS 30 days # 0 tabs 06/20/25 07/04/25 Rx tablet ondansetron HCl 4 mg tablet 4 mg PO DAILY PRN nausea a nd 06/20/25 07/04/25 Rx vomiting 30 days #0 tabs prednisone 10 mg tablet 10 mg PO DAILY 30 days #0 ta bs 06/20/25 07/04/25 Rx sennosides 8.6 mg-docusate sodium 1 tab-cap PO BID 30 days #0 tabs 10/09/25 10/23/25 Rx 50 mg tablet (Stimulant Laxative Plus) venlafaxine 150 mg 300 mg (2 x 150 mg) PO DAILY 30 06/20/25 07/04/25 Rx capsule,extended release 24 hr days #0 caps diazepam 5 mg tablet (Valium) 5 mg PO TID PRN anxiety 07/04/25 07/04/25 History sertraline 50 mg tablet 50 mg PO QHS 07/04/25 History Allergies Allergy/AdvReac Type Severity Reaction Status Date / Time codeine Allergy Severe Swelling Verified 07/04/25 16:18 of Lip/Tongue/Throat Vital Signs Vital Signs - 24 hr 07/04/25 12:26 07/04/25 12:42 Pulse Rate 118 H Respiratory Rate 26 H Blood Pressure 157/79 H Pulse Oximetry 97 97 Oxygen Delivery Nasal Cannula Nasal Cannula Oxygen Flow Rate 6 6 Exam Narrative: GENERAL: non-toxic appearing, in no acute distress. HEAD: Normocephalic, atraumatic. EYES: PERRLA. Conjunctivae clear. EARS: NOSE: Normal no drainage. THROAT: Pharynx clear, no exudate. NECK: Trachea midline. Thyroid not palpable. No adenopathy, no masses. RESPIRATORY: Airway patent, respirations nonlabored. CTA. CARDIOVASCULAR: Regular rate and rhythm without murmurs, rubs, or gallops. BREASTS: Defer GASTROINTESTINAL: Abdomen is soft and nontender. No organomegaly. Bowel sounds normal in all quadrants. GENITOURINARY: Defer MUSCULOSKELETAL: Moves all extremities. No gross deformities. Moves all extremities well. No calf tenderness. SKIN: Warm, dry, normal color. NEURO: A&O X4. Speech clear PSYCHIATRIC: Normal interaction H&P: Results Labs Labs: Short CBC 07/04/25 Range/Units 12:38 WBC 14.9 H (4.5-10.0) K/mm3 Hgb 10.4 L (12.0-15.0) g/dL Hct 35.9 L (37.0-47.0) % Plt Count 223 (150-375) k/mm3 BMP 07/04/25 12:38 Sodium 136 L Potassium 3.8 Chloride 101 Carbon Dioxide 27 BUN 15 Creatinine 0.80 Glucose 99 Calcium 8.5 Liver Function 07/04/25 Range/Units 12:38 Total Bilirubin 1.2 (0.2-1.3) mg/dL AST 53 H (14-36) U/L ALT 52 H (6-35) U/L Alkaline Phosphatase 118 (38-126) U/L Albumin 4.0 (3.5-5.1) g/dL Assessment and Plan Assessment and plan (1) Hospice care patient: Code(s): Z51.5 - Encounter for palliative care Status: Acute Quality If No VTE Prophylaxis Answer both mechanical and pharmacologic: Reason no mechanical VTE proph: low risk/not indicated (Patient is hospice admit) Hospitalist MIPS Advance Care Plan The patient's Advanced Care plan is not present because:: Hospice care is currently being or has been provided this calendar yr Medication Reconciliation I have utilized all available resources to obtain, update and review the patients current medications (includes all prescriptions, OTC, herbals, cannabis, and nutritional supplements).: Yes
--- NOTE | 2025-07-04 15:56 | ADMGEN ---
This patient, Dipti Luna, was admitted to -. Patient/family oriented to hospital policies and general routines including ID bracelet, bed and alarms, visiting hours, pain management, procedures, bathroom and other care routines, personal items, smoking policy, room service/diet, and visiting hours. Information on how to activate the Rapid Response Team has been discussed. Patient/Family are encouraged to report perceived risks to care and to ask questions if they do not understand what they are told or what they should do.
== END 2025-07-08 15:59 | disposition hospice, inpatient (51) ==
PROVIDERS: Emergency Medicine; Emergency Provider Family Medicine
DX: J44.1 Chronic obstructive pulmonary disease with (acute) exacerbation (principal); Z51.5 Encounter for palliative care; J96.11 Chronic respiratory failure with hypoxia; Z99.81 Dependence on supplemental oxygen; D63.8 Anemia in other chronic diseases classified elsewhere; F41.9 Anxiety disorder, unspecified; Z79.82 Long term (current) use of aspirin; Z79.899 Other long term (current) drug therapy
CPT/HCPCS: 36415; 71046; 80053; 85025; 93005; 96374; 96375; 99284; 99285; J2270; J3360

== ENCOUNTER 2025-07-04 17:24 | HOS | payer OTHER, MEDICARE, MEDICAID, SELFPAY ==
[2025-07-04] VITALS (25 sets, daily range): BP systolic 85–157; BP diastolic 58–79; PULSE 92–118; RESP 17–36; TEMP 36.4–36.9; O2SAT 93–98; BMI 39.3
--- NOTE | ~2025-07-04 | XR_ITS ---
Clinical history:Shortness of breath EXAM:X-ray chest 2 views TECHNIQUE:Frontal and lateral images of the chest were obtained. Comparisons:06/19/2025 FINDINGS: Cardiomediastinal silhouette is enlarged, unchanged. No pneumothorax. No pleural effusion. No free air under the diaphragm. Moderate-sized patchy opacities scattered throughout both lungs. There is a 5.9 x 4.3 cm masslike opacities in the left hilar region. Stable pulmonary nodule in the right lower lung. IMPRESSION: 1.There is a 5.9 x 4.3 cm masslike opacity in the left hilar region. Differential includes overlapping vasculature, focal consolidation, mass or vascular abnormality. A chest CT with contrast is recommended. The finding was not definitely seen in the chest x-ray from 06/19/2025. 2. Moderate-sized patchy opacities scattered throughout both lungs. Differential includes but is not limited to edema or pneumonia. Reviewed, dictated and finalized at location Q.
--- NOTE | ~2025-07-04 | XR_ITS ---
CORRECTED REPORT moved images/report to [id number] from [id number] [place] 09/16/2025 This report was recreated on 09/16/2025. Original report was C Clinical history:Shortness of breath EXAM:X-ray chest 2 views TECHNIQUE:Frontal and lateral images of the chest were obtained. Comparisons:06/19/2025 FINDINGS: Cardiomediastinal silhouette is enlarged, unchanged. No pneumothorax. No pleural effusion. No free air under the diaphragm. Moderate-sized patchy opacities scattered throughout both lungs. There is a 5.9 x 4.3 cm masslike opacities in the left hilar region. Stable pulmonary nodule in the right lower lung. IMPRESSION: 1.There is a 5.9 x 4.3 cm masslike opacity in the left hilar region. Differential includes overlapping vasculature, focal consolidation, mass or vascular abnormality. A chest CT with contrast is recommended. The finding was not definitely seen in the chest x-ray from 06/19/2025. 2. Moderate-sized patchy opacities scattered throughout both lungs. Differential includes but is not limited to edema or pneumonia. Reviewed, dictated and finalized at location Q. IMPRESSION: 1.There is a 5.9 x 4.3 cm masslike opacity in the left hilar region. Differenti al includes overlapping vasculature, focal consolidation, mass or vascular abno rmality. A chest CT with contrast is recommended. The finding was not definitel y seen in the chest x-ray from 06/19/2025. 2. Moderate-sized patchy opacities scattered throughout both lungs. Differentia l includes but is not limited to edema or pneumonia.
--- NOTE | 2025-07-04 12:32 | ECG_ITS ---
Test Date: 2025-07-04 12:32:07 Measurements Intervals [place] Rate: 117 P: 17 [place]: 175 QRS: 11 QRSD: 78 T: 28 QT: 285 QTc: 399 Interpretive Statements SINUS TACHYCARDIA EARLY PRECORDIAL R/S TRANSITION BASELINE ARTIFACT- I, II, III, AVR, AVL, AVF, V4-V6 ABNORMAL ECG Compared to ECG 06/19/2025 12:37:08 HEART RATE HAS INCREASED Electronically Signed On 07-04-2025 12:46:53 CDT by Shawn Rodriguez D.O.
[2025-07-04 12:43] LABS: Hematocrit 35.9 % (37.0-47.0); Hemoglobin 10.4 g/dL (12.0-15.0); Immature Granulocyte Percent A 1.4 % (0-0.5); Lymphocytes Absolute Auto 2.04 K/mm3 (0.9-3.2); Mean Corpuscular HGB Conc 29.0 g/dl (32-36); Mean Corpuscular Hemoglobin 23.5 pg (26-34); Mean Corpuscular Volume 81.0 fl (80-100); Nucleated Red Blood Cells Absolute Auto 0.020 K/mm3 (0.0-0.012); Nucleated Red Blood Cells Perc 0.1 % (0.0-0.2); Platelet Count Result 223 k/mm3 (150-375); Red Blood Count 4.43 M/mm3 (4.2-5.4); White Blood Count 14.9 K/mm3 (4.5-10.0)
[2025-07-04] MEDS: MORPHINE SULFATE (*CRX) 4 MG/ML INJ IV PUSH ×2 (13:01→23:33)
[2025-07-04 13:02] LABS: Alanine Aminotransferase 52 U/L (6-35); Albumin Level 4.0 g/dL (3.5-5.1); Alkaline Phosphatase 118 U/L (38-126); Anion Gap 8 mmol/L (4-12); Aspartate Amino Transferase 53 U/L (14-36); Bilirubin,Total 1.2 mg/dL (0.2-1.3); Blood Urea Nitrogen 15 mg/dL (7-17); Calcium 8.5 mg/dL (8.4-10.2); Carbon Dioxide 27 mmol/L (22-30); Chloride 101 mmol/L (98-107); Estimated Glomerular Filt Rate > 60; Glucose 99 mg/dL (65-110); Potassium 3.8 mmol/L (3.4-5.0); Sodium 136 mmol/L (137-145); Total Protein 6.9 g/dL (6.3-8.2)
[2025-07-04 13:03] LABS: Hypochromasia 1+; Schistocytes None Seen
[2025-07-04] MEDS: diazePAM INJ (*CRX) 10 MG/2 ML SYRINGE 2.5 MG IV PUSH (13:53)
--- NOTE | 2025-07-04 14:04 | ER_ITS ---
This report was moved to the correct visit on 09/16/2025. The original report was signed by Wander Moya MD on 07/04/25 [id number]. HPI - SOB/Dyspnea General Chief Complaint: Shortness of Breath/Dyspnea Stated Complaint: resp. distress Time Seen by Provider: 07/04/25 12:32 Source: patient Mode of arrival: EMS Limitations: no limitations History of Present Illness HPI Narrative: 65-year-old with a history of end-stage COPD presently on hospice care was brought in from home with the complaints of increased shortness of breath and low O2 sats. Patient is on home O2 however are O2 sats were in high 70 's she denies having any chest pain. No history of fever . Hospice care patient want pt to be admitted for stablization MD elicited complaint: shortness of breath Pertinent past history: COPD Onset (ago): day(s) (3) Timing: constant Severity: severe Exacerbating factors: nothing Relieving factors: oxygen Known history of: COPD Associated symptoms: denies other symptoms Related Data Home Medications ?Medication ?Instructions ?Recorded ?Confirmed ?Last Taken ?Type buspirone 5 mg tablet 5 mg PO TID 06/16/25 06/19/25 06/18/25 H istory hydromorphone 2 mg tablet 2 mg PO Q4H PRN pain 06/16/25 06/19/25 U nknown History morphine 15 mg tablet,extended 15 mg PO Q12H 06/16/25 06/19/25 06/18/25 History release Allergies Allergy/AdvReac Type Severity Reaction Status Date / Time codeine Allergy Severe Swelling Verified 07/04/25 12:34 of Lip/Tongue/Throat Review of Systems Review of Systems: All systems reviewed & are unremarkable except as noted in HPI and below Constitutional: Constitutional: Reports no additional constitutional complaints Eyes: Eyes: Reports no additional eye complaints ENT: Reports system reviewed and no additional complaints, except as documented Cardiovascular: Cardiovascular: Reports no additional cardiovascular complaints Respiratory: Respiratory: Reports no additional respiratory complaints Gastrointestinal: Gastrointestinal: Reports no additional gastrointestinal complaints Musculoskeletal: Musculoskeletal: Reports no additional musculoskeletal complaints [facility] Past Medical History Medical History (Updated 07/04/25 @ 14:04 by Wander Moya MD) Anxiety Anemia in chronic illness Hospice care patient COPD exacerbation Acute on chronic respiratory failure with hypoxia Social History Social History Smoking status: Former smoker Alcohol intake: never Substance use: never Lack of Transportation: YES Lack of Food: Often True Current Housing: I Have Housing Concerned About Future Housing: No Difficulty Paying Gas/Electric Bills: No Difficulty Paying for Meds: No Currently Unemployed: No Education: High School Diploma/GED Difficulty w/ Childcare or Family Care: No Spiritual care concerns: No Exam Narrative: GENERAL: Well-appearing, well-nourished, in moderate resp distress HEAD: Normocephalic, atraumatic. EYES: PERRLA and EOMI. ENT: Nares clear, no rhinorrhea or epistaxis. Mucous membranes moist. NECK: Supple. CHEST: Decreased air entry. HEART: Regular rate and rhythm. No murmur heard. Normal peripheral pulses. ABDOMEN: Soft, nontender, nondistended, normal active bowel sounds. EXTREMITIES: Normal range of motion. No edema. SKIN: Warm, dry, no rash. NEURO: No focal deficits. Alert and oriented x3. PSYCH: Normal mood and affect. Course Course Emergency Course: Patient finally calmed down with IV morphine and Valium. She was given IV Solu- Medrol. We will admit her to the hospital and continue hospice care Vital Signs Vital signs: Vital Signs Pulse Rate 118 H 07/04/25 12:26 Respiratory Rate 26 H 07/04/25 12:26 Blood Pressure 157/79 H 07/04/25 12:26 Pulse Oximetry 97 07/04/25 12:26 Oxygen Delivery Nasal Cannula 07/04/25 12:26 Oxygen Flow Rate 6 07/04/25 12:26 Pulse Rate 118 H 07/04/25 12:26 Respiratory Rate 26 H 07/04/25 12:26 Blood Pressure 157/79 H 07/04/25 12:26 Pulse Oximetry 97 07/04/25 12:42 Oxygen Delivery Nasal Cannula 07/04/25 12:42 Oxygen Flow Rate 6 07/04/25 12:42 MDM - SOB/Dyspnea MDM Narrative Medical decision making narrative: 65-year-old with his history of end-stage COPD now having exacerbation will do lab work control and chest x-rays needed meanwhile the morphine and Valium for agitation. Differential Diagnosis Differential diagnosis: Likely acute exacerbation of chronic obstructive airways disease, congestive heart failure, community acquired pneumonia and asthma with exacerbation Medical Records Attestation: I reviewed the patient's medical records. Lab Data Attestation: I reviewed the patient's lab results. 07/04/25 12:38 07/04/25 12:38 Labs: Lab Results 07/04/25 Range/Units 12:38 WBC 14.9 H (4.5-10.0) K/mm3 RBC 4.43 (4.2-5.4) M/mm3 Hgb 10.4 L (12.0-15.0) g/dL Hct 35.9 L (37.0-47.0) % MCV 81.0 (80-100) fl MCH 23.5 L (26-34) pg MCHC 29.0 L (32-36) g/dl RDW 16.0 H (11.5-14.5) % Plt Count 223 (150-375) k/mm3 MPV 10.8 H (7.4-10.4) fl Immature Gran % (Auto) 1.4 H (0-0.5) % Neut % (Auto) 76.5 H (45.5-73.1) % Lymph % (Auto) 13.7 L (18.3-44.2) % [place] % (Auto) 7.2 (2.6-8.5) % Eos % (Auto) 0.9 (0-4.4) % Baso % (Auto) 0.3 (0.2-1.2) % Lymph # (Auto) 2.04 (0.9-3.2) K/mm3 [place] # (Auto) 1.1 H (0.1-0.6) K/mm3 Eos # (Auto) 0.1 (0-0.3) K/mm3 Baso # (Auto) 0.1 (0.0-0.1) K/mm3 Abs Immat Gran (auto) 0.21 H (0.00-0.031) K/mm3 Absolute Neuts (auto) 11.4 H (1.3-6.7) K/mm3 Absolute Nucleated RBC 0.020 H (0.0-0.012) K/mm3 Band Neutrophils % Not Reportable Nucleated RBC % 0.1 (0.0-0.2) % Platelet Estimate Adequate (Adequate) Hypochromasia 1+ Schistocytes None seen Sodium 136 L (137-145) mmol/L Potassium 3.8 (3.4-5.0) mmol/L Chloride 101 (98-107) mmol/L Carbon Dioxide 27 (22-30) mmol/L Anion Gap 8 (4-12) mmol/L BUN 15 (7-17) mg/dL Creatinine 0.80 (0.7-1.0) mg/dL Estim Creat Clear Calc Not Reportable Estimated GFR > 60 (59 - ) Glucose 99 (65-110) mg/dL Calcium 8.5 (8.4-10.2) mg/dL Total Bilirubin 1.2 (0.2-1.3) mg/dL AST 53 H (14-36) U/L ALT 52 H (6-35) U/L Alkaline Phosphatase 118 (38-126) U/L Total Protein 6.9 (6.3-8.2) g/dL Albumin 4.0 (3.5-5.1) g/dL Imaging Data Radiologist's impression: ITS Impressions Chest X-Ray 07/04/25 13:26 IMPRESSION: 1.There is a 5.9 x 4.3 cm masslike opacity in the left hilar region. Differential includes overlapping vasculature, focal consolidation, mass or vascular abnormality. A chest CT with contrast is recommended. The finding was not definitely seen in the chest x-ray from 06/19/2025. 2. Moderate-sized patchy opacities scattered throughout both lungs. Differential includes but is not limited to edema or pneumonia. ECG Data EKG #1: ECG completion date: 07/04/25 ECG completion time: 12:32 EKG Interpretation: tachycardia (117), no ectopy, no ST changes, normal QRS, normal QT and NL axis Discharge Plan Discharge Clinical Impression: COPD exacerbation, Hospice care patient Patient Disposition: Still a Patient Condition: Stable Patient Language: Hungarian Prescriptions: No Action buspirone 5 mg tablet 5 mg PO TID hydromorphone 2 mg tablet 2 mg PO Q4H PRN (Reason: pain) morphine 15 mg tablet extended release 15 mg PO Q12H levofloxacin 750 mg tablet 750 mg PO .q48 3 Days Qty: 2 0RF Rx Instructions: take one tablet on 06/22, and another on 06/24 cefpodoxime 200 mg tablet 200 mg PO Q12H 4 Days Qty: 8 0RF Rx Instructions: must administer with a meal/food prednisone 10 mg tablet 10 mg PO DAILY 30 Days Qty: 0 0RF mirtazapine 30 mg tablet,disintegrating 30 mg PO HS 30 Days Qty: 0 0RF albuterol sulfate 2.5 mg /3 mL (0.083 %) solution for nebulization 2.5 mg continuous nebulization QID 30 Days Qty: 0 0RF benzonatate 200 mg capsule 200 mg PO TID 30 Days Qty: 0 0RF ondansetron HCl 4 mg tablet 4 mg PO DAILY PRN (Reason: nausea and vomiting) 30 Days Qty: 0 0RF sennosides-docusate sodium [Stimulant Laxative Plus] 8.6-50 mg tablet 1 tab-cap PO BID 30 Days Qty: 0 0RF venlafaxine 150 mg capsule,extended release 24hr 300 mg PO DAILY 30 Days Qty: 0 0RF aspirin 81 mg tablet,delayed release (DR/EC) 81 mg PO DAILY 30 Days Qty: 0 0RF hydromorphone 2 mg tablet 2 mg PO Q4H PRN (Reason: pain) 30 Days Qty: 0 0RF montelukast 10 mg tablet 10 mg PO DAILY 30 Days Qty: 0 0RF morphine 15 mg tablet extended release 15 mg PO Q12H 30 Days Qty: 0 0RF lorazepam 1 mg tablet 1 mg PO Q4H PRN (Reason: anxiety) 30 Days Qty: 0 0RF polyethylene glycol 3350 17 gram/dose powder 17 g PO DAILY PRN (Reason: constipation) 30 Days Qty: 0 0RF albuterol sulfate 90 mcg/actuation HFA aerosol inhaler 2 puff INHALATION Q6H PRN (Reason: Wheezing) 30 Days Qty: 0 0RF metoprolol tartrate 25 mg tablet 25 mg PO Q12H 30 Days Qty: 0 0RF guaifenesin [Mucinex] 1,200 mg tablet extended release 12hr 1,200 mg PO Q12H 30 Days Qty: 0 0RF Dupixent Pen 300 mg/2 mL pen injector 300 mg SUBCUT .COMPLEX 30 Days Qty: 0 0RF Rx Instructions: 300 mg subcutaneously every two weeks.; Trelegy Ellipta 200-62.5-25 mcg blister with device 1 inh INHALATION DAILY 30 Days Qty: 0 0RF Follow-up/Referrals: UNKNOWN,DOCTOR [Primary Care Provider] Time of Disposition: 15:04 Please be advised this is a medical document. It is intended for [id number] communication. It is written in medical language and may contain unfamiliar abbreviations or verbiage. Medical documents are intended to carry relevant information, facts as evident, and the clinical opinion of the practitioner at the time of the encounter. This report may have been done utilizing a voice recognition system. Attempts have been made to correct errors. However, there may be uncorrected grammatical, spelling, and recognition errors present. The file time of this note does not necessarily represent the time the patient was seen. Report Initialized date/time: Wander Moya MD 07/04/25 / [id number] Electronically signed by: Wander Moya MD 07/04/25 [id number]
--- OUTSIDE RECORDS SUMMARY | 2025-07-04 14:49 | XMS_ITS | Patient Health Record ---
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 Name Role Phone Razia Salcedo Primary Care Provider [phone] Jez Giraldo Unavailable [phone] Allergies Allergen (clinical drug ingredient) Drug/Non Drug Allergy documented on EMR Reaction Allergy Type Onset Date Status ammonia AMMONIA INHALANT (uncoded) Unknown Allergy Active codeine CODEINE Unknown Drug Allergy Active AMMONIA AROMATIC Unknown Drug Allergy Active Reason For Referral No Information Medications Medication SIG (Take, Route, Frequency, Duration) Notes Start Date End Date Status Adderall 20 MG 1 tablet Orally Twice a day; Duration: 30 days last refill for patient 05/15/2020 Active Zofran 8 MG 1 tablet as needed Orally Once a day; Duration: 30 days 02/01/2020 Active Pregabalin 150 MG 1 capsule Orally TID; Duration: 30 days 04/02/2020 Active Esomeprazole Magnesium 40 MG 1 capsule Orally Once a day; Duration: 30 days 01/11/2020 Active Abilify 5 MG 1 tablet Orally Once a day; Duration: 30 Active ALPRAZolam 2 MG 1 tablet on the tongue and allow to dissolve Orally Three times a day; Duration: 30 days Active Effexor XR 150 MG take 2 caps Orally Once a day; Duration: 30 Active Symbicort 160-4.5 MCG/ACT 2 puffs Inhalation Twice a day Active NexIUM 20 MG 1 capsule ORAL Once a day 09/16/2013 Not-Taking Budesonide 32 MCG/ACT 1 spray in each nostril Nasally Once a day; Duration: 30 day(s) 11/30/2019 Active ProAir HFA 90mcg/actuation INHALE 2 PUFFS BY MO INHALATION 03/11/2015 Unknown Immunizations Vaccine Route Administration Date Status Comme nts zzInfluenza, High dose, injectable, preservative free (Fluzone) Unknown 05/20/2014 Administered zzFluvirin IM Intramuscular 06/01/2016 Administered Tdap (Boostrix, Adacel) Unknown 05/27/2015 Administered Influenza (split), 3 yrs and above IM Intramuscular 05/25/2013 Administered Flulaval IM Intramuscular 06/01/2019 Administered Pneumococcal conjugate PCV 13 (Prevnar 13) [...] W/U Status Risk Notes Problem Allergic rhinitis (13135706) Allergic rhinitis (J30.9) Active confirmed Problem Depression (319066322) Depression (F32.9) Active confirmed Problem Menopausal symptom (17061430) Hot flashes due to menopause (N95.1) Active confirmed Problem Osteoarthritis (537193082) Osteoarthritis involving multiple joints on both sides of body (M15.9) Active confirmed Problem Cervical arthritis (176033938) Cervical arthritis (M46.92) Active confirmed Problem Iron deficiency anemia (01687064) Iron deficiency anemia, unspecified (D50.9) 0 confirmed Young Problem Morbid obesity (disorder) (498368068) Morbid (severe) obesity due to excess calories (E66.01) 0 confirmed Young Problem Bipolar disorder (97177424) Bipolar disorder, unspecified (F31.9) 0 confirmed Young Problem Anxiety disorder (344195960) Anxiety disorder, unspecified (F41.9) 0 confirmed Young Problem Chronic obstructive pulmonary disease (64523989) Chronic obstructive pulmonary disease, unspecified (J44.9) 0 confirmed Young Problem Gastro-esophageal reflux disease with esophagitis (343147101) Gastro-esophageal reflux disease with esophagitis (K21.0) 0 confirmed Young Problem Peptic ulcer without haemorrhage AND without perforation (94735744) Peptic ulcer, site unspecified, unspecified as acute or chronic, without hemorrhage or perforation (K27.9) 0 confirmed Young Problem Hyperlipidemia (19360067) Other and unspecified hyperlipidemia (E78.5) 0 confirmed Young Problem Vitamin D deficiency (42864408) Vitamin D deficiency (E55.9) 0 confirmed Young Problem Disorder of lumbar disc (634180963) Lumbar disc disorder (M51.9) 0 confirmed Young Plan Of Treatment Pending Test Test Name Order Date Urinalysis, Routine 07/23/2016 REFLEXIVE URINE CULTURE 07/23/2016 Insurance Providers Payer Name Payer Address Payer Phone Subscriber Number Group Number Insured Name Patient Relationship to Insured Coverage Start Date Coverage End Date [facility] [employer] PPO [address] [address] [place] [address] [id number] Dipti Luna Self - patient is the insured 6 Medical (General) History Medical History History ICD Code Tonsillectomy Alcoholism Anxiety TAHBSO Right Rotator Cuff Tendinopathy PUD Iron Deficiency Anemia Vitamin D Deficiency Bladder Sling Borderline Diabetes Mellitus COPD
--- OUTSIDE RECORDS SUMMARY | 2025-07-04 14:49 | XMS_ITS | Clinical Summary ---
Author Organization [facility] Address [address] [facility] [place] [address] Care Team Providers Care Program Dir Name Role Phone Maya Mcclain MD Primary Care Provider Source Comments [facility],non-owned Affiliates and Associated Physician Practices is amultiple site organization consisting of ambulatory clinics and hospital sitesin [place], [place], [place] and [place]. This disclosure is being madepursuant to the Care Everywhere program and may not contain all information available regarding this patient. Last updated 18.[employer] [facility] Allergies Active Allergy Reactions Criticality Noted Date Comments Codeine Anaphylaxis,Angioede ma,Urtica liz,Swelling,Unknown High 11/12/2012 throat closes Medications * This document contains information received from the source organization and may not represent a complete record from that organization. * Be aware that medications may not be up to date on this document. Alwaysverify current medications with the patient. Nebulizers MISC Acti ve prednisoLONE acetate (PRED FORTE) 1 % ophthalmic suspension Instill 1 (one) drop into right eye 4 times daily 15 mL 1 Active Additional Information Patient not taking.Reported on 04/14/2022 cyclopentolate (CYCLOGYL) 1 % ophthalmic solution Instill 1 (one) drop into right eye 2 times daily 5 mL 1 Active Additional Information Patient not taking.Reported on 04/14/2022 albuterol HFA (PROVENTIL; VENTOLIN; PROAIR) 108 (90 Base) MCG/ACT inhaler Inhale 2 puffs by mouth every 4 hours as needed 1 Active ALPRAZolam (XANAX) 1 MG tablet Take 1 mg by mouth 3 times daily 2 Active ALPRAZolam, disintegrating, (NIRAVAM) 2 MG tablet 1 tablet on the tongue and allow to dissolve Active ARIPiprazole (ABILIFY) 5 MG tablet 1 tablet Active aspirin EC (ECOTRIN) 81 MG tablet Take 1 tablet by mouth once daily 2 Active budesonide-form oterol (SYMBICORT) 160-4.5 MCG/ACT inhaler 2 puffs Active vitamin D3 (CHOLECALCIFERO L) 125 MCG (5000 UT) capsule Take 5,000 Units by mouth once daily 2 Active cloNIDine (CATAPRES) 0.2 MG/24HR patch Apply 1 patch to skin 1 Active clotrimazole-be tamethasone (LOTRISONE) 1-0.05 % cream APPLY TOPICALLY TO THE AFFECTED AND SURROUNDING AREAS TWICE DAILY IN THE MORNING AND IN THE EVENING FOR 2 WEEKS 2 Active dilTIAZem ER 24hr (TIAZAC) 120 MG capsule TAKE 1 CAPSULE(120 MG) BY MOUTH DAILY 2 Active Docusate Sodium (DSS) 100 MG Take 100 mg by mouth 2 times daily 2 Active Fluticasone-Ume clidin-Vilant (TRELEGY ELLIPTA) 100-62.5-25 MCG/INH Inhale 1 puff by mouth once daily Active gabapentin (NEURONTIN) 100 MG capsule TAKE 1 CAPSULE(100 MG) BY MOUTH TWICE DAILY 2 Active hydrOXYzine HCl (ATARAX) 25 MG tablet TAKE 1 TABLET BY MOUTH EVERY EVENING NEEDED FOR INSOMINA 2 Active ibuprofen (MOTRIN) 600 MG tablet Take 600 mg by mouth 4 times daily Active albuterol-iprat ropium (DUO-NEB) 0.5-2.5 (3) MG/3ML nebulizer solution Inhale 3 mL by mouth every 6 hours as needed Active ondansetron, disintegrating, (ZOFRAN ODT) 4 MG tablet 0 Active ondansetron (ZOFRAN) 4 MG tablet Take 4 mg by mouth every 6 hours 2 Active sucralfate (CARAFATE) 1 GM tablet Take [...] drink = 0.6 oz pur e alcohol) Comments Unknown Sex and Gender Information Value Date Recorded Sex Assigned at Not on file 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 Gender Identity Not on file Sexual Orientation Not on file Last Filed Vital Signs Vital Sign Reading Time Taken Comments Blood Pressure 114/60 07/09/2014 2:52 PM CDT Pulse - - Temperature - - Respiratory Rate - - Oxygen Saturation - - Inhaled Oxygen Concentration - - Weight 90.7 kg (200 lb) 04/14/2022 9:49 AM CDT Height 167.6 cm (5' 6) 04/14/2022 9:49 AM CDT Body Mass Index [...] (1 of 2) 2008 MAMMOGRAM 02/24/2024 02/23/2022 DEPRESSION SCREENING 09/12/2024 MEDICARE AWV CALENDAR YEAR 2024 COVID-19 VACCINE ( - season) 2025 07/31/2021, 07/03/2021 INFLUENZA VACCINE (#1) 2025 , 07/08/2020, 06/12/2020, Additional history exists Respiratory Syncytial Virus (RSV) Vaccine Pt: or [...] on patient's age to complete this topic Insurance AETNA AETNA AETNA MEDICARE ADV Care Teams Program Dir Relationship Specialty Start Date End Date Maya Mcclain MD [address] [place] [phone] PCP - General 10/31/20
--- OUTSIDE RECORDS SUMMARY | 2025-07-04 14:49 | XMS_ITS | Encounter Summary ---
Author Organization [facility] Address [address] [place] [address] Care Team Providers Care Auto Dealership Porter Name Role Phone Maya Mcclain MD Primary Care Provider [phone] None, Provider Primary Care Provider Haleigh Bai MD Primary Care Provider Encounter Details Date Type Department Care Team (Late st Contact Info) Description 12/08/2020 Prep for Procedure [facility] Day [facility] ONE [place], [place] [id number] Luis Saunders MD [address] [id number] Social History Tobacco Use Types Packs/Day Years [...] DETECTED NOT DETECTED 12/09/2020 6:16 PM CDT [facility] Comment: A Not Detected (negative) test result [...] providers and patients using the following websites: https://www.[employer].com/home/Covid-19/HCP/QuestIVD/fact- sheet.html https://www.[employer].Zackfire.com/home/Covid-19/Patients/ QuestIVD/fact-sheet.html This test has been authorized by the FDA under an Emergency Use Authorization (EUA) for use by authorized laboratories. Due to the current public health emergency, [employer] is receiving a high volume of samples [...] about COVID-19 can be found at the [employer] website: www.[employer].Zackfire.com/Covid19. Test performed at [facility] [address] [address] Director: JAYLEEN CHO DO,MPH FIRST TEST NO 12/08/2020 1:31 PM CDT [facility] EMPLOYED IN HEALTHCARE NO 12/08/2020 1:31 PM CDT [facility] SYMPTOMATIC DEFINED BY CDC NO 12/08/2020 1:31 PM CDT [facility] DATE OF SYMPTOM ONSET UNKNOWN 12/08/2020 1:33 PM CDT [facility] HOSPITALIZATION STATUS NO 12/08/2020 1:31 PM CDT [facility] PATIENT IN ICU NO 12/08/2020 1:31 PM CDT [facility] RESIDENT OF [facility] NO 12/08/2020 1:31 PM CDT [facility] UNKNOWN 12/08/2020 1:33 PM CDT [facility] PATIENT'S RACE WHITE OR 12/08/2020 1:31 PM CDT [facility] ETHNICITY NONHISPANIC 12/08/2020 1:31 PM CDT [facility] SOURCE (QST) NASOPHARYNGEAL SWAB 12/08/2020 1:31 PM CDT [facility] NASOPHARYNGEAL SWAB / Unknown 12/08/2020 11:15 AM CDT us Luis Saunders MD MICROBIOLOGY - GENERAL [facility] Final Result [facility] [address] [place] [address], [place] [phone] [facility] [address] [place] [address], documented in this encounter Visit Diagnoses Diagnosis Dysphagia- Primary Dysphagia, unspecified documented in this encounter Additional Health Concerns Infection Onset Date Last Indicated Resolved Time COVID-19 Rule Out 12/08/2020 12/08/2020 12/09/2020 6:16 PM CDT COVID-19 Rule Out 05/06/2022 05/06/2022 05/06/2022 11:48 PM CDT documented as of this encounter Care Teams Auto Dealership Porter Relationship Specialty Start Date End Date Maya Mcclain MD [facility] [address] [place] [address] PCP - General FAMILY PRACTICE 10/23/20 05/05/22 None, MD Margot PCP - General 05/06/22 12/18/24 Haleigh Young MD [facility] [address] [place] [address] PCP - General FAMILY PRACTICE 12/19/24 documented as of this encounter
--- OUTSIDE RECORDS SUMMARY | 2025-07-04 14:49 | XMS_ITS | Clinical Summary ---
Author Organization [facility] Address [address] [place] [address] Care Team Providers Care Spoke Maker Name Role Phone Luis Saunders MD Unavailable [phone] Jammie Burdick MD Unavailable [phone] Ervin Garcia MD Unavailable [phone] Haleigh Young MD Primary Care Provi naye Jean Carlos Berrios MD Unavailable [phone] Braden Sherwood DO Unavailable [phone] Ladonna Martinez NP Unavailable [phone] Kamila Witt NP Unavailable [phone] Allergies Active Allergy Reactions Criticality Noted Date [...] 40 mg tabletIndications:Coron dinorah artery disease involving [place] coronary artery of [place] heart without angina pectoris,Pure hypercholesterolemia Take 1 tablet (40 mg total) by mouth nightly 90 tablet 3 025 Active benzonatate (TESSALON) 200 mg capsule Take 1 capsule (200 mg total) by mouth 3 (three) times a day as needed for cough 60 capsule 2 025 Active sxvqfbkevjr-fulahgkhw-w ilanter (Trelegy Ellipta) 200-62.5-25 mcg inhalerIndications:Main tenance Therapy for Asthma Inhale 1 puff daily 180 each 11 025 Active albuterol HFA (PROVENTIL HFA,VENTOLIN HFA,PROAIR HFA) 90 mcg/actuation inhalerIndications:C Consultant blanca obstructive pulmonary disease, unspecified COPD type [...] Assessment & Plan (11/01/2023 10:01 AM SUPERVISOR HAND SILVERING): Chronic, persistent Encouraged to follow up with pain management Encouraged to update me after the visit Continue lyrica as prescribed Urinary incontinence 11/01/2023 Assessment & Plan (11/01/2023 10:05 AM SUPERVISOR HAND SILVERING): Chronic, persistent Will place referral to urology for guidance Update me after the visit Incontinence of feces with fecal urgency 024 Assessment & Plan (11/01/2023 10:02 AM SUPERVISOR HAND SILVERING): Chronic, persistent Encouraged to follow up with Dr Burdick Update me after the visit Call for questions Chronic respiratory failure with hypoxia 024 Assessment & Plan (06/28/2024 11:25 AM CDT): Chronic. Stable. Continue supplemental oxygen, 2 L. continue to follow with pulmonology. Assessment & Plan (04/12/2024 1:17 PM CDT): Chronic, persistent Oxygen level improved today Will reach out to her door worker given her numbers, I do worry her [...] was reviewed with the patient and her animation producer Assessment & Plan (02/09/2024 11:30 AM CDT): [...] provided. Assessment & Plan (10/29/2024 1:54 PM SUPERVISOR HAND SILVERING): BMI Follow-up includes: education provided. Assessment & Plan (10/17/2024 12:08 PM SUPERVISOR HAND SILVERING): Chronic, stable BMI Follow-up includes: Encouraged healthy [...] and cardizem Continue to follow with her editorial manager Update me with any changes Call for [...] Assessment & Plan (11/01/2023 10:01 AM SUPERVISOR HAND SILVERING): Chronic, persistent Encouraged to follow up with [...] PM CDT): Chronic, stable Continue valtrex through [employer] SALES REPRESENTATIVE History of Lena fundoplication 08/17/2021 Leukocytosis 08/17/2021 [...] Continue Cardizem Set up follow-up with her editorial manager as well Update me with any changes Call for questions or concerns Assessment & Plan (05/21/2022 6:17 PM CDT): With SVT during her hospital stay at [facility] Continue harman Encouraged follow up with cardiology [...] please contact the office. I strongly encourage Curriculethart sign ups. It can facilitate communication flow. [...] Assessment & Plan (09/16/2020 3:02 PM SUPERVISOR HAND SILVERING): Unclear etiology She is not specific on [...] Assessment & Plan (09/16/2020 3:01 PM SUPERVISOR HAND SILVERING): Currently only taking effexor contineu current management Assessment & Plan (07/15/2020 8:50 AM SUPERVISOR HAND SILVERING): We will start lyrica 150 mg BID [...] Assessment & Plan (11/01/2023 10:06 AM SUPERVISOR HAND SILVERING): Chronic, worse Encouraged to reach out to [...] Assessment & Plan (07/15/2020 8:48 AM SUPERVISOR HAND SILVERING): We will continue this current regime, she [...] Assessment & Plan (11/01/2023 10:01 AM SUPERVISOR HAND SILVERING): Chronic, persistent Encouraged to follow up with [...] of lumbar spine. Continue pain management with Wolcott 5/325 mg q.6 p.r.n., lidocaine patch, Flexeril 5 mg t.i.d. p.r.n.. PT/OT care. Patient need to follow up with Dr. Delatorre outpatient Assessment & Plan (11/24/2021 10:34 AM CDT): Will check xray We discussed PT- she is unable to afford it She is going home exercises Continue supportive care Further guidance once we have the results Assessment & Plan (07/15/2020 8:48 AM SUPERVISOR HAND SILVERING): Recommend THC, we will seek out a [...] Assessment & Plan (07/15/2020 8:49 AM SUPERVISOR HAND SILVERING): Remeron and effecor Taking only 150 mg [...] (09/07/2018): Added automatically from request for surgery [id number] Assessment & Plan (03/29/2023 4:54 PM CDT): Chronic, stable Continue Nexium Continue to follow with Dr. Saunders Assessment & Plan (01/26/2022 12:53 PM CDT): Referral to Dr Saunders placed Continue nexium History of aspiration pneumonia 05/18/2018 Iron deficiency anemia, unspecified 03/20/2018 Assessment & Plan (11/01/2023 10:09 AM SUPERVISOR HAND SILVERING): Chronic, stable Managed by heme/onc Update me [...] CDT): Now uses vaping Chronic bullous emphysema ([facility]) 10/26/2016 Overview (12/17/2016): Bullous emphysema Assessment & [...] Assessment & Plan (07/15/2020 8:47 AM SUPERVISOR HAND SILVERING): Likely resulting in her SOB with the change in medications Continue inhaler and seeing pulm History of gastric ulcer 08/04/2015 Assessment & Plan (03/29/2023 4:54 PM CDT): Resolved Continue Nexium Update me with changes or concerns Continue to follow with GI History of fall Spinal stenosis of lumbar region at [facility] Assessment & Plan (11/01/2023 10:02 AM SUPERVISOR HAND SILVERING): Chronic, persistent Encouraged to follow up with [...] 01/01/2025 Assessment & Plan (07/27/2024 3:57 PM SUPERVISOR HAND SILVERING): Symptom duration 2 weeks Recent covid, flu [...] (05/30/2022): Added automatically from request for surgery [id number] Diverticulitis large intesti ne w/o perforation or [...] CDT): Chronic, persistent Labs reviewed from her pacu rn Referral to hematology pending Update me after [...] (09/07/2018): Added automatically from request for surgery [id number] COPD with acute exacerbation 07/11/2018 04/02/2025 Overview [...] Assessment & Plan (09/16/2020 3:02 PM SUPERVISOR HAND SILVERING): Continue seeing pulm cigar tobacco processing supervisor antibiotic and steroids Assessment & Plan (07/08/2020 8:35 AM CDT): Continue to follow-up with pulm Shortness of breath 10/26/2016 01/02/20 25 Overview (12/17/2016): Dyspnea on exertion Assessment & Plan (02/09/2024 11:26 AM CDT): Chronic. Patient reports shortness of breath is worse when her heart rate seems to be elevated. - she has a call in to the new editorial manager to see if she can follow-up sooner [...] Type Department Care Team Description 07/02/2025 Telephone [facility] Family Medicine [address] [address] Haleigh Young MD 06/19/2025 Telephone [facility] Cardiology [address] [facility] [address] [phone] González Dunlap MD 04/24/2025 10:30 AM CDT Office Visit [facility] Pulmonary [address] [place] [address] Ervin Garcia MD Dyspnea on exertion; Chronic obstructive pulmonary disease, unspecified COPD type (HCC); Wheezing 04/24/2025 Telephone [facility] Pulmonary [address] [place] [address] Ervin Garcia MD Medical Question/Miscellaneo us 04/03/2025 Telephone [facility] Oncology [address] [place] [address] [address] [place] [address] Fer Mckeon DO 04/03/2025 Telephone [facility] Family Medicine [address] [address] Haleigh Young MD Medical Question/Miscellaneo [...] 09/07/2018 Added automatically from request for surgery [id number] Community acquired pneumonia, bilateral 08/17/20 21 Diverticulitis [...] doctor or pharmacy Sometimes 09/22/2023 [facility] Utilities Answer Date Recorded In the past 12 months has th e [employer], gas, oil, or water [employer] threatened to shut off services in your [...] week 03/28/2025 How often do you attend [facility] or christianity services? Never 03/28/2025 Do you belong to any clubs o r organizations such as congregation groups, unions, fraternal or athletic groups, or [...] place to sleep or slept in a long-term (including now)? No 10/17/2023 PHQ-9 Answer Date [...] any time in the past 12 m [facility], were you homeless or living in a long-term (including now)? No 03/28/2025 Personal Safety Answer Date Recorded Have you ever been in or are you currently in a harmful physical or emotional relationship or is someone making you feel afraid or unsafe? Denies 03/27/2025 Comments No Sex and Gender Information Value Date Recorded Sex Assigned at Not on file Legal Sex Female 1:41 PM SUPERVISOR HAND SILVERING Gender Identity Not on file Sexual Orientation [...] Care Management On track( 025 10:21 AM SUPERVISOR HAND SILVERING) Bev Walton, POT HOLDER BINDER Note: Problem: Need for Community Resources Interventions: - Provide patient/family with a list of appropriate resources for their specific need. - Help to coordinate resources. - Follow up to ensure patient/family has connected with the appropriate resources / personnel. Medical Devices Implanted Type Area Communication Technician Device Identifier Shelf Expiration Date Model / Serial / Lot Left Foot Screws Foot Procedures Procedure Name Priority Date/Time Associated Diagnosis Comments DIAGNOSTIC MAMMOGRAM BILATERAL W SUKUMAR Schedule Routine, Read Routine (OP Routine) 04/09/2024 8:33 AM CDT Follow-up examination of abnormal mammogram COLONOSCOPY 10/28/2023 3:01 PM SUPERVISOR HAND SILVERING HEPATITIS C ANTIBODY Routine 08/09/2023 1:28 PM SUPERVISOR HAND SILVERING DEXA AXIAL SKELETON BONE DENSITY 1 OR [...] Gen Anderson M.D. RL: REBECCA Report ID: [id number] Reading Location: [facility] us Haleigh Young MD IMG MAMMO PROCEDURE S Final Result * COLONOSCOPY (10/28/2023 3:01 PM SUPERVISOR HAND SILVERING) Anatomical Region Laterality Modality Other Narrative Procedure Note Jammie Burdick MD - 10/28/2023 3:01 PM CST [facility] GI ENDOSCOPY Patient Name: Dipti Luna Procedure Date: 10/28/2023 3:01 PM Date of : 1960 Admit Type: Outpatient Age: 63 Gender: Female Attending MD: Jammie Burdick M.D. Room: [facility] ENDOSCOPY ROOM 06 Note Status: Finalized [...] The scope was passed under direct vision.The [id number]-[id number] colonoscope was introduced through theanus and advanced [...] On: 10/28/2023 3:01 PM Recognized by the [employer] for promoting quality in endoscopy Jammie Burdick MD ENDOSCOPY PROCEDURES Tash l Result * Hepatitis C antibody Blood (08/09/2023 1:28 PM SUPERVISOR HAND SILVERING) Hep C Ab Nonreactive Nonreactive ROSALBA HOLT [...] on 2019. Blood 08/09/2023 1:28 PM SUPERVISOR HAND SILVERING 08/09/2023 6:31 PM SUPERVISOR HAND SILVERING Jammie Burdick MD LAB MICROBIOLOGY - GENERA L ORDERABLES Final Result ROSALBA [address] [facility] Department [place] [address] * DEXA Axial Skeleton Bone Density Multi Site (02/22/2023 10:45 AM CDT) Anatomical Region Laterality Modality Body N/A Mammography 02/22/2023 3:45 PM CDT Narrative 02/22/2023 3:45 PM CDT EXAM DESCRIPTION: DEXA AXIAL SKELETON BONE DENSITY 1 OR MORE SITES REASON FOR STUDY: 62 y/o year old F with given history of screening. Communication Technician/Model: Mibio A (S/N [id number]) CLINICAL INFORMATION: Current height: 64 inches Maximum [...] Elodia Recinos M.D. TW: BEV Report ID: [id number] Reading Location: [id number] Procedure Note Eldoia Recinos MD - 02/22/2023 EXAM DESCRIPTION: DEXA AXIAL SKELETON BONE DENSITY 1 OR MORE SITES REASON FOR STUDY: 62 y/o year old F with given history of screening. Communication Technician/Model: Mibio A (S/N [id number]) CLINICAL INFORMATION: Current height: 64 inches Maximum [...] Elodia Recinos M.D. TW: BEV Report ID: [id number] Reading Location: [id number] Brenda Stewart SPORTS LEADERSHIP INSTRUCTOR IMG DXA PROCEDURES Final Result * Pap and High Risk HPV, reflex to Genotyping (12/22/2022 7:56 AM CDT) Thin prep (Pap test) 12/22/2022 7:56 AM CDT 12/23/2022 7:56 AM CDT Narrative PATHOLOGY [facility] - 12/28/2022 11:38 AM CDT [facility] Department of Pathology [address] [place] [address] Final Report with Addendum Note to Patients: [...] the details. Patient Name: DIPTI LUNA [address]: [address] [place] [address], [address] [place], [place] [address] Gender: F : 1960 (Age: 62) Service: Location: [facility] : [id number] [facility] #: [id number] Patient Type: [facility] SPECIMEN Taken: 12/22/2022 Received: 12/23/2022 Accessioned:: 12/24/2022 Reported: 12/28/2022 Physician(s): Nia Alfred M.D. [facility] Diagnosis: SOURCE OF SPECIMEN SCREENING THIN PREP [...] by the Surgical Pathology Department at [facility] as part of an ongoing senior quality methods specialist program and in compliance with federally mandated [...] characteristics determined by the Surgical Pathology Department [facility]. It has not been cleared or approved by the U. S. Food and Drug Administration. Nia Alfred MD LAB CYTOLOGY ORDERABLES F inal Result PATHOLOGY [facility] from Last 3 Months or Most Recently Relevant to Health Maintenance Insurance [facility] Advance Directives For more information, please contact: [phone] Documents on File Type Date Recorded Patient Assistant Teacher Expl anation ADVANCE DIRECTIVE 02/01/2024 1:59 PM POLST - Phys Order for PT Preferences ADVANCE DIRECTIVE 01/30/2024 1:03 PM Power of Anthropology Professor-Medical ADVANCE DIRECTIVE 06/02/2022 12:57 PM Jami r of Anthropology Professor-Medical ADVANCE DIRECTIVE 06/02/2022 12:56 PM Yoon ng [...] 2:29 PM 06/02/2022 10:04 PM Care Teams Spoke Maker Relationship Specialty Start Date End Date Haleigh Young MD [address] [place] [address] PCP - General Family Medicine 11/24/21 Luis Saunders MD Referring Physician Gastroenterology 07/31/18 Jammie Burdick MD Referring Physician Gastroenterology 07/31/18 Ervin Garcia MD [address] [facility] [address] [place] [address] Consulting Physician Pulmonary Disease 07/08/20 Jean Carlos Berrios MD [address] [facility] [place] [address] Referring Physician Obstetrics and Gynecology 02/23/22 Braden Sherwood DO [address] [facility] [address] [place] [address] Referring Physician Psychiatry 06/04/22 Ladonna Martinez, COLLIN [address] [facility] [address] [place] [address] Nurse Practitioner Nurse Practitioner 10/31/23 Kamila Witt NP [address] [facility] [address] [place] [address] Nurse Practitioner Hospice and Palliative Medicine 03/01/24
--- OUTSIDE RECORDS SUMMARY | 2025-07-04 14:49 | XMS_ITS | Encounter Summary ---
Author Organization [facility] Address [address] [place] [address] Care Team Providers Care Transportation Associate Name Role Phone Maya Mcclain MD Primary Care Provider [phone] Encounter Details Date Type Department Care Team (Late st Contact Info) Description 10/14/2023 Lab Requisition [facility] [address] [facility] [place] [address] Ketan Sheppard MD [facility] DERMATOLOGY [address] [place] [phone] Dermatitis, unspecified Social History Tobacco Use Types Packs/Day Years Used Date Smoking Tobacco: Former Cigarettes Q uit: 10/24/2009 Smokeless Tobacco: Never Alcohol Use Standard Drinks/Week Comments Never 0 (1 standard drink = 0.6 oz pur e alcohol) Comments Unknown Sex and Gender Information Value Date Recorded Sex Assigned at Not on file Legal Sex Female 6:32 AM JEWELRY DRILL OPERATOR Gender Identity Not on file Sexual Orientation Not on file documented as of this encounter Plan of Treatment Not on file documented as of this encounter Procedures Procedure Name Priority Date/Time Associated Diagnosis Comments DERMATOPATHOLOGY Routine 10/14/2023 3:33 AM JEWELRY DRILL OPERATOR Dermatitis, unspecified documented in this encounter Results * DERMATOPATHOLOGY (10/14/2023 3:33 AM JEWELRY DRILL OPERATOR) Case Report Dermatopathology Report Case: [id number] Authorizing Provider: Ketan Sheppard MD Collected: 10/14/2023 03:33 AM Ordering Location: [facility] DermPath Lab Received: 10/17/2023 02:24 PM Pathologist: Ruby Licona MD Specimen: Skin, left buttock 4:27 PM [facility] DERMATOPATHOLOGY LABORATORY Final Diagnosis Specimen A. SKIN, left buttock: EPIDERMAL NECROSIS SUGGESTIVE OF EXCORIATION (L98.499) (see microscopic description) 4:27 PM [facility] DERMATOPATHOLOGY LABORATORY at [address] JEWELRY DRILL OPERATOR Clinical History Atopic dermatitis vs contact dermatitis other vs scabies 4:27 PM [facility] DERMATOPATHOLOGY LABORATORY Gross Description Specimen A: Received is one formalin filled container labeled with the patient's name and designated left buttock. The specimen consists of a punch biopsy measuring 4x4x4 mm, bisected. Jar 0. 4:27 PM [facility] DERMATOPATHOLOGY LABORATORY Microscopic Description Specimen A. SKIN, left buttock: The epidermis is focally necrotic and covered with a scale-crust. There is fibrin at the base. Additional deeper sections were obtained and reviewed. Grocott's methenamine silver (GMS) stain is negative for fungal elements in the sections examined. 4:27 PM [facility] DERMATOPATHOLOGY LABORATORY Disclaimer An external and internal positive and negative controls are appropriate for the histochemical, immunohistochemical and immunofluorescence stain(s) in this case (if any), except where stated explicitly. The performance characteristics of the stain(s) cited in this report were developed and its performance characteristic determined by the Dermatopathology Laboratory at [facility], directed by Dr. Jaylan Cunningham. These tests need not be, and therefore are not, approved by the [place] Food and Drug Administration. The tests are used for clinical purposes. Billing Codes Specimen Charges Stain Charges 89492 1 [address]9519 1 4 4:27 PM [facility] DERMATOPATHOLOGY LABORATORY Embedded Images 4 4:27 PM [facility] DERMATOPATHOLOGY LABORATORY Pathology/Cytolo gy TISSUE SPECIMEN FROM SKIN / Unknown 10/14/2023 3:33 AM JEWELRY DRILL OPERATOR 10/17/2023 2:24 PM JEWELRY DRILL OPERATOR us Ketan Sheppard MD LAB - PATHOLOGY/CYTOLOGY KHLOE DURAND Final Result DERMATOPATHOLOGY LABORATORY [facility] - Department of Dermatology [facility] Specialized Medicine [address] [place] [address], [address] [phone] documented in this encounter Visit Diagnoses Diagnosis Dermatitis, unspecified documented in this encounter Care Teams Transportation Associate Relationship Specialty Start Date End Date Maya Mcclain MD [address] [place] [phone] PCP - General 10/31/20 documented as of this encounter
--- OUTSIDE RECORDS SUMMARY | 2025-07-04 14:50 | XMS_ITS | Patient Health Record ---
Author Organization [facility]ly [facility], later [facility] Address [address] [place] [address] Care Team Providers Care Motorcycle Police Name Role Phone Angelina Taylor Primary Care Provider [phone] Nvuia Ireland Unavailable [phone] Diane Burgess Unavailable [phone] Allergies Allergen (clinical drug ingredient) Drug/Non Drug [...] Status Risk Notes Problem Generalized anxiety disorder (53295876) RUSS (generalized anxiety disorder) (F41.1) 025 Active confirmed consideration to separate panic disorder Problem Insomnia due to mental disorder (01766170) Insomnia due to mental disorder (F51.05) 025 Active confirmed Problem Major depressive disorder (167754538) MDD (major depressive disorder) (F32.9) 025 Active confirmed Problem Nondependent cocaine abuse in remission (582115252) Cocaine use disorder, mild, in sustained remission (F14.11) 025 Active confirmed last use age 46 Vital Signs Weight 217 lbs 06/03/2025 Encounters Encounter Location Date Provider Diagnosis [address] [address] 11/08/2024 Diane Burgess MDD (major depressive disorder) F32.9 ; RUSS (generalized anxiety disorder) F41.1 ; Insomnia due to mental disorder F51.05 and Cocaine use disorder, mild, in sustained remission F14.[address] [address] 12/20/2024 Diane Burgess RUSS (generalized anxiety disorder) F41.1 ; MDD (major depressive disorder) F32.9 ; Insomnia due to mental disorder F51.05 and Cocaine use disorder, mild, in sustained remission F14.[address] [address] 02/14/2025 Diane Burgess RUSS (generalized anxiety disorder) F41.1 ; MDD (major depressive disorder) F32.9 ; Insomnia due to mental disorder F51.05 and Cocaine use disorder, mild, in sustained remission F14.[address] [address] 03/27/2025 Angelina Taylor RUSS (generalized anxiety disorder) F41.1 ; MDD (major depressive disorder) F32.9 ; Insomnia due to mental disorder F51.05 and Cocaine use disorder, mild, in sustained remission F14.11 [facility] [address] [address] 04/15/2025 Angelina [place] RUSS (generalized anxiety disorder) F41.1 ; MDD (major depressive disorder) F32.9 ; Insomnia due to mental disorder F51.05 and Cocaine use disorder, mild, in sustained remission F14.11 [facility] [address] [address] 06/03/2025 Angelina [place] RUSS (generalized anxiety disorder) F41.1 ; MDD (major depressive disorder) F32.9 ; Insomnia due to mental disorder F51.05 and Cocaine use disorder, mild, in sustained remission F14.[address] [place] [address] 03/27/2025 Angelina Taylor [place] [address] [place] [address] 11/09/2024 Kyliz Burgess RUSS (generalized anxiety disorder) F41.1 [place] [place] [address] 11/09/2024 Nuvia Ireland [address] [place] [address] 11/09/2024 Diane Burgess [address] [place] [address] 12/12/2024 Kyria Burgess RUSS (generalized anxiety disorder) F41.1 [facility] [address] [place] [address] 02/15/2025 Diane Burgess [address] [place] [address] 02/22/2025 Kyria Burgess MDD (major depressive disorder) F32.9 [facility] [address] [address] 04/22/2025 Angelina Taylor RUSS (generalized anxiety disorder) F41.1 [facility] [address] [place] [address] 04/24/2025 Angelina Taylor Assessments Encounter Date Diagnosis [...] over Zoom and is located in [place], caregiver present in room. PHQ-9 score of [...] or be administered own oral medications per [facility] protocols. Provided informed consent with understanding of [...] follow up over phone and is in [place]. Previous PHQ-9 score of 21, today is [...] or be administered own oral medications per [facility] protocols. Provided informed consent with understanding of [...] psychiatric follow-up over phone and is in [place]. Last appt 12/20/24 and was increased on [...] or be administered own oral medications per [facility] protocols. Provided informed consent with understanding of [...] or be administered own oral medications per [facility] protocols. Provided informed consent with understanding of [...] PMP- to: [x] consider utilizing therapist/counselor /social contact worker/psychologist , referral given [] continue with therapist/counselor /social contact worker/psychologist Psychoeducation: -Treatment options discussed in detail with patient/guardian verbalizing understanding of treatment rationales. -Side effects and benefits of all medications prescribed discussed at length between psychiatric prescribing provider and patient/guardian along with the risks associated of digj-yz-kvth interactions, including but not limited to prescription [...] engaged in treatment plan with Angelina Taylor [facility]. -Perceiving complete understanding of rationale by patient/guardian and willingness to adhere to formulated plan of care by prescriber with patient/guardian buy-in, willingness to participate actively in plan of care and willing to take charge of own care. -Although geared for female patients, all patients/guardians are informed by prescribing provider of risks of medications that could potentially be taken by female/women within their [place] influence and that women who use [...] a should occur, to consult with provider, PERSONAL PROPERTY APPRAISER and/or Nurse Doctor Of Veterinary Medicine to determine if prescribed medications should or [...] or be administered own oral medications per [facility] protocols. Provided informed consent with understanding of [...] PMHNP-BC to: [x] consider utilizing therapist/counselor /social contact worker/psychologist , referral given [] continue with therapist/counselor /social contact worker/psychologist Psychoeducation: -Treatment options discussed in detail with patient/guardian verbalizing understanding of treatment rationales. -Side effects and benefits of all medications prescribed discussed at length between psychiatric prescribing provider and patient/guardian along with the risks associated of wrok-fz-goyj interactions, including but not limited to prescription [...] engaged in treatment plan with Angelina Taylor [facility]. -Perceiving complete understanding of rationale by patient/guardian and willingness to adhere to formulated plan of care by prescriber with patient/guardian buy-in, willingness to participate actively in plan of care and willing to take charge of own care. -Although geared for female patients, all patients/guardians are informed by prescribing provider of risks of medications that could potentially be taken by female/women within their [place] influence and that women who use [...] a should occur, to consult with provider, PERSONAL PROPERTY APPRAISER and/or Nurse Doctor Of Veterinary Medicine to determine if prescribed medications should or [...] or be administered own oral medications per [facility] protocols. Provided informed consent with understanding of [...] 6 times daily from Tanisha Rosenthal per [facility] Treatment Plan: -Patient is on hospice care -Follow up: 4 weeks [] Hard Rx handed to patient [] Rx phoned into pharmacy [x] Rx faxed/e-prescribed into pharmacy [x] PDMP Reviewed [] [employer] Reviewed Encouraged by Angelina BORREGOP-BC to: [] consider utilizing therapist/counselor /social contact worker/psychologist , referral given [] continue with therapist/counselor /social contact worker/psychologist Psychoeducation: -Treatment options discussed in detail with patient/guardian verbalizing understanding of treatment rationales. -Side effects and benefits of all medications prescribed discussed at length between psychiatric prescribing provider and patient/guardian along with the risks associated of gexh-ho-bhza interactions, including but not limited to prescription [...] potentially be taken by female/women within their [place] influence and that women who use [...] a should occur, to consult with provider, PERSONAL PROPERTY APPRAISER and/or Nurse Doctor Of Veterinary Medicine to determine if prescribed medications should or [...] Son sourav, 07/11/2025 10:00:00 AM, [address] [place] [address], [phone], Insurance Providers Payer Name Payer Address Payer Phone Subscriber Number Group Number Insured Name Patient Relationship to Insured Coverage Start Date Coverage End Date Aetna Medicare [address] [place] [address] [id number] Dipti Luna Self - patient is the insured 5 MEDICAID [employer] [address] [place] [address] [id number] Dipti Luna Self - patient is the insured 5 Medical (General) History Medical History History ICD Code COPD Lupus Chronic pain Diverticulitis Surgical History Surgery Date(Month/Year) tubal ligation oopherectomy tonsillectomy hysterecomy Hospitalization History Reason Date(Month/Year) [address] for psych iatric inpatient for anxiety one time I had a nervous break down, last time in her 30s Psychiatric inpatient at [facility] for aggravation/HI, was there for a week age 46 Multiple for medical
--- NOTE | 2025-07-04 16:35 | PCCCNOTE ---
Called by Angelica with [facility] regarding pt in the ED. Pt is on their service at this time and they would like pt. admitted GIP for her COPD exacerbation. Went to the ED to speak with her, awaiting for the hospice nurse to come for orders. 1330 Brenda, the nurse for [facility] came to pt room. All information was given to her, pt will be admitted [facility].
--- OUTSIDE RECORDS SUMMARY | 2025-07-04 16:36 | XMS_ITS | Encounter Summary ---
Author Organization [facility] Address [address] [place] [address] Care Team Providers Care Trouble Clerk Name Role Phone Maya Mcclain MD Primary Care Provider [phone] None, Provider Primary Care Provider Haleigh Bai MD Primary Care Provider Encounter Details Date Type Department Care Team (Late st Contact Info) Description 12/08/2020 Prep for Procedure [facility] [place], [place] [address] Luis Saunders MD [address] [id number] Social History Tobacco Use Types Packs/Day Years [...] DETECTED NOT DETECTED 12/09/2020 6:16 PM CDT [facility] Comment: A Not Detected (negative) test result [...] providers and patients using the following websites: https://www.mobli.com/home/Covid-19/HCP/Quest[facility]/fact- sheet.html https://www.mobli.AdGrok/home/Covid-19/Patients/ QuestIVD/fact-sheet.html This test has been authorized by the FDA under an Emergency Use Authorization (EUA) for use by authorized laboratories. Due to the current public health emergency, [facility] is receiving a high volume of samples [...] about COVID-19 can be found at the [facility] website: www.[employer].AdGrok/Covid19. Test performed at [facility] [address] [address] Director: JAYLEEN CHO DO,MPH FIRST TEST NO 12/08/2020 1:31 PM CDT [facility] EMPLOYED IN HEALTHCARE NO 12/08/2020 1:31 PM CDT [facility] SYMPTOMATIC DEFINED BY CDC NO 12/08/2020 1:31 PM CDT [facility] DATE OF SYMPTOM ONSET UNKNOWN 12/08/2020 1:33 PM CDT [facility] HOSPITALIZATION STATUS NO 12/08/2020 1:31 PM CDT [facility] PATIENT IN ICU NO 12/08/2020 1:31 PM CDT [facility] RESIDENT OF [facility] NO 12/08/2020 1:31 PM CDT [facility] UNKNOWN 12/08/2020 1:33 PM CDT [facility] PATIENT'S RACE WHITE OR 12/08/2020 1:31 PM CDT [facility] ETHNICITY NONHISPANIC 12/08/2020 1:31 PM CDT [facility] SOURCE (QST) NASOPHARYNGEAL SWAB 12/08/2020 1:31 PM CDT [facility] NASOPHARYNGEAL SWAB / Unknown 12/08/2020 11:15 AM CDT us Luis Saunders MD MICROBIOLOGY - GENERAL KHLOE DURAND Final Result [facility] [address] [place] [address], [place] [phone] [facility] [address] [place] [address], documented in this encounter Visit Diagnoses Diagnosis Dysphagia- Primary Dysphagia, unspecified documented in this encounter Additional Health Concerns Infection Onset Date Last Indicated Resolved Time COVID-19 Rule Out 12/08/2020 12/08/2020 12/09/2020 6:16 PM CDT COVID-19 Rule Out 05/06/2022 05/06/2022 05/06/2022 11:48 PM CDT documented as of this encounter Care Teams Trouble Clerk Relationship Specialty Start Date End Date Maya Mcclain MD [facility] [address] [place] [address] PCP - General FAMILY PRACTICE 10/23/20 05/05/22 None, MD Margot PCP - General 05/06/22 12/18/24 Haleigh Young MD [facility] [address] [place] [address] PCP - General FAMILY PRACTICE 12/19/24 documented as of this encounter
--- OUTSIDE RECORDS SUMMARY | 2025-07-04 16:36 | XMS_ITS | Encounter Summary ---
Author Organization [facility] Address [address] [place] [address] Care Team Providers Care Customer Development Manager Name Role Phone Maya Mcclain MD Primary Care Provider [phone] Encounter Details Date Type Department Care Team (Late st Contact Info) Description 10/14/2023 Lab Requisition [facility] - DermPath Lab [address] [facility] [place] [address] Ketan Sheppard MD [facility] DERMATOLOGY [address] [place] [phone] Dermatitis, unspecified Social History Tobacco Use Types Packs/Day Years Used Date Smoking Tobacco: Former Cigarettes Q uit: 10/24/2009 Smokeless Tobacco: Never Alcohol Use Standard Drinks/Week Comments Never 0 (1 standard drink = 0.6 oz pur e alcohol) Comments Unknown Sex and Gender Information Value Date Recorded Sex Assigned at Not on file Legal Sex Female 6:32 AM BIAS MACHINE OPERATOR HELPER Gender Identity Not on file Sexual Orientation Not on file documented as of this encounter Plan of Treatment Not on file documented as of this encounter Procedures Procedure Name Priority Date/Time Associated Diagnosis Comments DERMATOPATHOLOGY Routine 10/14/2023 3:33 AM BIAS MACHINE OPERATOR HELPER Dermatitis, unspecified documented in this encounter Results * DERMATOPATHOLOGY (10/14/2023 3:33 AM BIAS MACHINE OPERATOR HELPER) Case Report Dermatopathology Report Case: [id number] Authorizing Provider: Ketan Sheppard MD Collected: 10/14/2023 03:33 AM Ordering Location: [facility] DermPath Lab Received: 10/17/2023 02:24 PM Pathologist: Ruby Licona MD Specimen: Skin, left buttock 4:27 PM [facility] DERMATOPATHOLOGY LABORATORY Final Diagnosis Specimen A. SKIN, left buttock: EPIDERMAL NECROSIS SUGGESTIVE OF EXCORIATION (L98.499) (see microscopic description) 4:27 PM [facility] DERMATOPATHOLOGY LABORATORY at 1627 BIAS MACHINE OPERATOR HELPER Clinical History Atopic dermatitis vs contact dermatitis [...] determined by the Dermatopathology Laboratory at [facility], directed by Dr. Jaylan Cunningham. These tests need not be, and therefore are not, approved by the [place] Food and Drug Administration. The tests are used for clinical purposes. Billing Codes Specimen Charges Stain Charges 58625 1 28704 1 4 4:27 PM [facility] DERMATOPATHOLOGY LABORATORY Embedded Images 4 4:27 PM [facility] DERMATOPATHOLOGY LABORATORY Pathology/Cytolo gy TISSUE SPECIMEN FROM SKIN / Unknown 10/14/2023 3:33 AM BIAS MACHINE OPERATOR HELPER 10/17/2023 2:24 PM BIAS MACHINE OPERATOR HELPER us Ketan Sheppard MD LAB - PATHOLOGY/CYTOLOGY [facility] Final Result DERMATOPATHOLOGY LABORATORY [facility] - Department of Dermatology [facility] Specialized Medicine [address] [place] [address], [address] [phone] documented in this encounter Visit Diagnoses Diagnosis Dermatitis, unspecified documented in this encounter Care Teams Customer Development Manager Relationship Specialty Start Date End Date Maya Mcclain MD [address] [place] [phone] PCP - General 10/31/20 documented as of this encounter
--- OUTSIDE RECORDS SUMMARY | 2025-07-04 16:36 | XMS_ITS | Clinical Summary ---
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,Pure hypercholesterolemia Take 1 tablet (40 mg total) by mouth nightly 90 tablet 3 025 Active benzonatate (TESSALON) 200 mg capsule Take 1 capsule (200 mg total) by mouth 3 (three) times a day as needed for cough 60 capsule 2 025 Active ypcwgbqrhfb-itzyicmcc-v ilanter (Trelegy Ellipta) 200-62.5-25 mcg inhalerIndications:Main tenance Therapy for Asthma Inhale 1 puff daily 180 each 11 025 Active albuterol HFA (PROVENTIL HFA,VENTOLIN HFA,PROAIR HFA) 90 mcg/actuation inhalerIndications: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 Stylist blanca obstructive pulmonary disease, unspecified COPD type [...] 11/01/2023 Assessment & Plan (11/01/2023 10:01 AM NAVY SENIOR OFFICER): Chronic, persistent Encouraged to follow up with pain management Encouraged to update me after the visit Continue lyrica as prescribed Urinary incontinence 11/01/2023 Assessment & Plan (11/01/2023 10:05 AM NAVY SENIOR OFFICER): Chronic, persistent Will place referral to urology for guidance Update me after the visit Incontinence of feces with fecal urgency 024 Assessment & Plan (11/01/2023 10:02 AM NAVY SENIOR OFFICER): Chronic, persistent Encouraged to follow up with Dr Burdick Update me after the visit Call for questions Chronic respiratory failure with hypoxia 024 Assessment & Plan (06/28/2024 11:25 AM CDT): Chronic. Stable. Continue supplemental oxygen, 2 L. continue to follow with pulmonology. Assessment & Plan (04/12/2024 1:17 PM CDT): Chronic, persistent Oxygen level improved today Will reach out to her sanforizing machine operator given her numbers, I do worry [...] was reviewed with the patient and her vat tender Assessment & Plan (02/09/2024 11:30 AM CDT): [...] provided. Assessment & Plan (10/29/2024 1:54 PM NAVY SENIOR OFFICER): BMI Follow-up includes: education provided. Assessment & Plan (10/17/2024 12:08 PM NAVY SENIOR OFFICER): Chronic, stable BMI Follow-up includes: Encouraged healthy [...] and cardizem Continue to follow with her superintendent gas distribution Update me with any changes Call for [...] 11/24/2021 Assessment & Plan (11/01/2023 10:01 AM NAVY SENIOR OFFICER): Chronic, persistent Encouraged to follow up with [...] PM CDT): Chronic, stable Continue valtrex through SENIOR RESEARCH MANAGER History of Lena fundoplication 08/17/2021 Leukocytosis 08/17/2021 [...] Continue Cardizem Set up follow-up with her superintendent gas distribution as well Update me with any changes Call for questions or concerns Assessment & Plan (05/21/2022 6:17 PM CDT): With SVT during her hospital stay at [facility] Continue harman Encouraged follow up with cardiology [...] please contact the office. I strongly encourage [employer]car[employer] sign ups. It can facilitate communication flow. [...] monitor Assessment & Plan (09/16/2020 3:02 PM NAVY SENIOR OFFICER): Unclear etiology She is not specific on [...] pt Assessment & Plan (09/16/2020 3:01 PM NAVY SENIOR OFFICER): Currently only taking effexor contineu current management Assessment & Plan (07/15/2020 8:50 AM NAVY SENIOR OFFICER): We will start lyrica 150 mg BID [...] groups. Assessment & Plan (11/01/2023 10:06 AM NAVY SENIOR OFFICER): Chronic, worse Encouraged to reach out to [...] concerns Assessment & Plan (07/15/2020 8:48 AM NAVY SENIOR OFFICER): We will continue this current regime, she [...] 07/08/2020 Assessment & Plan (11/01/2023 10:01 AM NAVY SENIOR OFFICER): Chronic, persistent Encouraged to follow up with [...] of lumbar spine. Continue pain management with [place] 5/325 mg q.6 p.r.n., lidocaine patch, Flexeril 5 mg t.i.d. p.r.n.. PT/OT care. Patient need to follow up with Dr. Delatorre outpatient Assessment & Plan (11/24/2021 10:34 AM CDT): Will check xray We discussed PT- she is unable to afford it She is going home exercises Continue supportive care Further guidance once we have the results Assessment & Plan (07/15/2020 8:48 AM NAVY SENIOR OFFICER): Recommend THC, we will seek out a [...] questions Assessment & Plan (07/15/2020 8:49 AM NAVY SENIOR OFFICER): Remeron and effecor Taking only 150 mg [...] (09/07/2018): Added automatically from request for surgery [id number] Assessment & Plan (03/29/2023 4:54 PM CDT): Chronic, stable Continue Nexium Continue to follow with Dr. Saunders Assessment & Plan (01/26/2022 12:53 PM CDT): Referral to Dr Saunders placed Continue nexium History of aspiration pneumonia 05/18/2018 Iron deficiency anemia, unspecified 03/20/2018 Assessment & Plan (11/01/2023 10:09 AM NAVY SENIOR OFFICER): Chronic, stable Managed by heme/onc Update me [...] uses vaping Chronic bullous emphysema ([facility]) 10/26/2016 Overview (12/17/2016): Bullous emphysema Assessment [...] Garcia Assessment & Plan (07/15/2020 8:47 AM NAVY SENIOR OFFICER): Likely resulting in her SOB with the change in medications Continue inhaler and seeing pulm History of gastric ulcer 08/04/2015 Assessment & Plan (03/29/2023 4:54 PM CDT): Resolved Continue Nexium Update me with changes or concerns Continue to follow with GI History of fall Spinal stenosis of lumbar region at multiple [facility] Assessment & Plan (11/01/2023 10:02 AM NAVY SENIOR OFFICER): Chronic, persistent Encouraged to follow up with [...] 01/01/2025 Assessment & Plan (07/27/2024 3:57 PM NAVY SENIOR OFFICER): Symptom duration 2 weeks Recent covid, flu [...] (05/30/2022): Added automatically from request for surgery [id number] Diverticulitis large intesti ne w/o perforation or [...] CDT): Chronic, persistent Labs reviewed from her despatch clerk Referral to hematology pending Update me after [...] (09/07/2018): Added automatically from request for surgery [id number] COPD with acute exacerbation 07/11/2018 04/02/2025 Overview [...] inhalers Assessment & Plan (09/16/2020 3:02 PM NAVY SENIOR OFFICER): Continue seeing pulm wood boat builder supervisor antibiotic and steroids Assessment & Plan (07/08/2020 8:35 AM CDT): Continue to follow-up with pulm Shortness of breath 10/26/2016 01/02/20 25 Overview (12/17/2016): Dyspnea on exertion Assessment & Plan (02/09/2024 11:26 AM CDT): Chronic. Patient reports shortness of breath is worse when her heart rate seems to be elevated. - she has a call in to the new superintendent gas distribution to see if she can follow-up sooner [...] Type Department Care Team Description 07/02/2025 Telephone [facility] Family Medicine [address] [address] Haleigh Young MD 06/19/2025 Telephone [facility] Cardiology [address] [facility] [address] [phone] González Dunlap MD 04/24/2025 10:30 AM CDT Office Visit [facility] Pulmonary [address] [place] [address] Ervin Garcia MD Dyspnea on exertion; Chronic obstructive pulmonary disease, unspecified COPD type (HCC); Wheezing 04/24/2025 Telephone [facility] Pulmonary [address] [place] [address] Ervin Garcia MD Medical Question/Miscellaneo us 04/03/2025 Telephone [facility] Medicine [facility] Oncology [address] [place] [address] [address] [place] [address] Fer Mckeon DO 04/03/2025 Telephone [facility] Family Medicine [address] [address] Haleigh Young MD Medical Question/Miscellaneo [...] 09/07/2018 Added automatically from request for surgery [id number] Community acquired pneumonia, bilateral 08/17/20 21 Diverticulitis [...] materials from doctor or pharmacy Sometimes 09/22/2023 [facility] Utilities Answer Date Recorded In the past 12 months has th e frestyl, gas, oil, or water [facility] threatened to shut off services in your [...] week 03/28/2025 How often do you attend [facility] or orthodox services? Never 03/28/2025 Do you belong to any clubs o r organizations such as quaker groups, unions, fraternal or athletic groups, or [...] in a custodial (including now)? No 10/17/2023 PHQ-9 Answer Date [...] any time in the past 12 m [facility], were you homeless or living in a custodial (including now)? No 03/28/2025 Personal Safety Answer Date Recorded Have you ever been in or are you currently in a harmful physical or emotional relationship or is someone making you feel afraid or unsafe? Denies 03/27/2025 Comments No Sex and Gender Information Value Date Recorded Sex Assigned at Not on file Legal Sex Female 1:41 PM NAVY SENIOR OFFICER Gender Identity Not on file Sexual Orientation [...] Care Management On track( 025 10:21 AM NAVY SENIOR OFFICER) Bev Walton, STEAM CONDITIONER OPERATOR Note: Problem: Need for Community Resources Interventions: - Provide patient/family with a list of appropriate resources for their specific need. - Help to coordinate resources. - Follow up to ensure patient/family has connected with the appropriate resources / personnel. Medical Devices Implanted Type Area Facing End Trimmer Device Identifier Shelf Expiration Date Model / Serial / Lot Left Foot Screws Foot Procedures Procedure Name Priority Date/Time Associated Diagnosis Comments DIAGNOSTIC MAMMOGRAM BILATERAL W SUKUMAR Schedule Routine, Read Routine (OP Routine) 04/09/2024 8:33 AM CDT Follow-up examination of abnormal mammogram COLONOSCOPY 10/28/2023 3:01 PM NAVY SENIOR OFFICER HEPATITIS C ANTIBODY Routine 08/09/2023 1:28 PM NAVY SENIOR OFFICER DEXA AXIAL SKELETON BONE DENSITY 1 OR [...] Gen Anderson M.D. RL: REBECCA Report ID: [id number] Reading Location: [facility] us Haleigh Young MD IMG MAMMO PROCEDURE S Final Result * COLONOSCOPY (10/28/2023 3:01 PM NAVY SENIOR OFFICER) Anatomical Region Laterality Modality Other Narrative Procedure Note Jammie Burdick MD - 10/28/2023 3:01 PM CST [facility] GI ENDOSCOPY Patient Name: Dipti Luna Procedure Date: 10/28/2023 3:01 PM Date of : 1960 Admit Type: Outpatient Age: 63 Gender: Female Attending MD: Jammie Burdick M.D. Room: [facility] ENDOSCOPY ROOM 06 Note Status: [...] The scope was passed under direct vision.The [id number] colonoscope was introduced through theanus and advanced [...] On: 10/28/2023 3:01 PM Recognized by the [place] [employer] for promoting quality in endoscopy Jammie Burdick MD ENDOSCOPY PROCEDURES Tash l Result * Hepatitis C antibody Blood (08/09/2023 1:28 PM NAVY SENIOR OFFICER) Hep C Ab Nonreactive Nonreactive [facility] HOLT [...] revised on 2019. Blood 08/09/2023 1:28 PM NAVY SENIOR OFFICER 08/09/2023 6:31 PM NAVY SENIOR OFFICER Jammie Burdick MD LAB MICROBIOLOGY - GENERA L ORDERABLES Final Result [facility] [address] [facility] [place] [address] * DEXA Axial Skeleton Bone Density Multi Site (02/22/2023 10:45 AM CDT) Anatomical Region Laterality Modality Body N/A Mammography 02/22/2023 3:45 PM CDT Narrative 02/22/2023 3:45 PM CDT EXAM DESCRIPTION: DEXA AXIAL SKELETON BONE DENSITY 1 OR MORE SITES REASON FOR STUDY: 62 y/o year old F with given history of screening. Facing End Trimmer/Model: Lettuce Eat A (S/N [id number]) CLINICAL INFORMATION: Current height: 64 inches Maximum [...] Elodia Recinos M.D. TW: BEV Report ID: [id number] Reading Location: [id number] Procedure Note Elodia Recinos MD - 02/22/2023 EXAM DESCRIPTION: DEXA AXIAL SKELETON BONE DENSITY 1 OR MORE SITES REASON FOR STUDY: 62 y/o year old F with given history of screening. Facing End Trimmer/Model: Lettuce Eat A (S/N [id number]) CLINICAL INFORMATION: Current height: 64 inches Maximum [...] Elodia Recinos M.D. TW: BEV Report ID: [id number] Reading Location: [id number] Brenda Stewart ANESTHETIST IMG DXA PROCEDURES Final Result * Pap and High Risk HPV, reflex to Genotyping (12/22/2022 7:56 AM CDT) Thin prep (Pap test) 12/22/2022 7:56 AM CDT 12/23/2022 7:56 AM CDT Narrative PATHOLOGY [facility] - 12/28/2022 11:38 AM CDT [facility] Department of Pathology [address] [place] [address] Final Report with Addendum Note to Patients: [...] the details. Patient Name: DIPTI LUNA [address]: [address] [place] [address], [address] [place], [place] [address] Gender: F : 1960 (Age: 62) Service: Location: [facility] : [id number] [facility] #: [id number] Patient Type: [facility] SPECIMEN Taken: 12/22/2022 Received: 12/23/2022 Accessioned:: 12/24/2022 Reported: 12/28/2022 Physician(s): Nia Alfred M.D. [facility] Diagnosis: SOURCE OF SPECIMEN SCREENING THIN [...] determined by the Surgical Pathology Department at [facility] as part of an ongoing quality control coordinator program and in compliance with federally mandated [...] characteristics determined by the Surgical Pathology Department [facility]. It has not been cleared or approved by the U. S. Food and Drug Administration. Nia Alfred MD LAB CYTOLOGY ORDERABLES F inal Result PATHOLOGY [facility] from Last 3 Months or Most Recently Relevant to Health Maintenance Insurance [facility] Advance Directives For more information, please contact: [phone] Documents on File Type Date Recorded Patient Stringer Up Soldering Machine Expl anation ADVANCE DIRECTIVE 02/01/2024 1:59 PM POLST - Phys Order for PT Preferences ADVANCE DIRECTIVE 01/30/2024 1:03 PM Power of Manager Infusion-Medical ADVANCE DIRECTIVE 06/02/2022 12:57 PM Jami r of Manager Infusion-Medical ADVANCE DIRECTIVE 06/02/2022 12:56 PM Yoon ng [...] 2:29 PM 06/02/2022 10:04 PM Care Teams Canoe Inspector Final Relationship Specialty Start Date End Date Haleigh Young MD [address] [place] [address] PCP - General Family Medicine 11/24/21 Luis Saunders MD Referring Physician Gastroenterology 07/31/18 Jammie Burdick MD Referring Physician Gastroenterology 07/31/18 Ervin Garcia MD [address] [facility] [address] [place] [id number] Consulting Physician Pulmonary Disease 07/08/20 Jean Carlos Berrios MD [address] [place] [address] Referring Physician Obstetrics and Gynecology 02/23/22 Braden Sherwood DO [address] [facility] [address] [place] [address] Referring Physician Psychiatry 06/04/22 Ladonna Martinez, COLLIN [address] [facility] [address] [place] [address] Nurse Practitioner Nurse Practitioner 10/31/23 Kamila Witt NP [address] [facility] [address] [place] [address] Nurse Practitioner Hospice and Palliative Medicine 03/01/24
--- OUTSIDE RECORDS SUMMARY | 2025-07-04 16:36 | XMS_ITS | Clinical Summary ---
Author Organization [facility] [employer] Address [address] [facility] [place] [address] Care Team Providers Care Clinical Assoc Name Role Phone Maya Mcclain MD Primary Care Provider Source Comments [facility] [employer],non-owned Affiliates and Associated Physician Practices is amultiple site organization consisting of ambulatory clinics and hospital sitesin [place], [place], [place] and [place]. This disclosure is being madepursuant to the Care Everywhere program and may not contain all information available regarding this patient. Last updated 18.[employer] Allergies Active Allergy Reactions Criticality Noted Date [...] on file Legal Sex Female 6:32 AM TESTER ARMATURE OR FIELDS Gender Identity Not on file Sexual Orientation [...] AETNA AETNA AETNA MEDICARE ADV Care Teams Clinical Assoc Relationship Specialty Start Date End Date Maya Mcclain MD [address] [place] [phone] PCP - General 10/31/20
--- OUTSIDE RECORDS SUMMARY | 2025-07-04 16:37 | XMS_ITS | Clinical Summary ---
Author Organization [facility] Address [facility] [place] [address] Care Team Providers Care Paediatric Thoracic Physician Name Role Phone Haleigh Young MD Primary Care Provider Allergies Active Allergy Reactions Criticality Noted Date Comments Codeine Anaphylaxis High 09/16/2020 Trazodone Other (see comment) Low 07/08/2020 Skin crawls Medications venlafaxine XR 150 MG 24 hr capsule Take 300 mg by mouth daily. 05/17/20 20 Active ipratropium-albute rol 0.5-2.5 (3) MG/3ML Solution Take by nebulization every 6 (six) hours as needed (SOB). Active ALPRAZolam (XANAX) 1 MG tablet Take 1 mg by mouth 3 (three) times daily as needed for Anxiety. 03/16/20 22 Active aspirin EC (ECOTRIN) 81 MG tablet Take 81 mg by mouth daily. 02/12/20 22 Active erythromycin (ROMYCIN) 5 MG/GM (0.5%) ophthalmic ointment Place 1 Application into the right eye nightly at bedtime. 05/05/20 22 Active TRELEGY 100-62.5-25 MCG/INH AEROSOL POWDER, BREATH ACTIVATED Inhale 1 puff into the lungs daily. 04/13/20 22 Active ondansetron (ZOFRAN) 4 MG tablet Take 4 mg by mouth every 6 (six) hours as needed for Nausea. 04/19/20 22 Active esomeprazole (NEXIUM) 40 MG capsule Take 40 mg by mouth 2 (two) times daily. Active albuterol sulfate HFA 108 (90 Base) MCG/ACT inhaler Inhale 2 puffs into the lungs every 4 (four) hours as needed for Wheezing. 06/22/20 21 Active dilTIAZem CD (CARDIZEM CD) 120 MG 24 hr capsule Take 120 mg by mouth daily. Active azithromycin (ZITHROMAX) 250 MG tablet Take 2 tablets by mouth on day one then 1 daily for four days. 6 tablet 05/09/20 22 Active ondansetron (ZOFRAN-ODT) 8 MG disintegrating tablet Take 1 tablet (8 mg total) by mouth every 8 (eight) hours as needed for Nausea. 20 tablet 05/09/20 22 Active Active Problems Problem Noted Date Diagnosed Date Sepsis 05/06/2022 Family History Medical History Relation Comments No Known Problems Father No Known Problems Mother Relation Status Comments Father Mother Alive Social History Tobacco Use Types Packs/Day Years [...] Sign Reading Time Taken Comments Blood Pressure 107/76 12/19/2024 4:15 PM CDT Pulse 101 12/19/2024 4:15 PM CDT Temperature 37.2 C (99 F) 12/19/2024 4:15 PM CDT Respiratory Rate 20 12/19/2024 4:15 PM CDT Oxygen Saturation 93% 12/19/2024 4:15 PM CDT Inhaled Oxygen Concentration - - Weight 81.6 kg (180 lb) 12/19/2024 4:15 PM CDT Height 167.6 cm (5' 6) 12/19/2024 4:15 PM CDT Body Mass Index 29.05 12/19/2024 4:15 PM CDT Plan of Treatment Health Maintenance Due Date Last Done Comments Colorectal Cancer Screening Colonoscopy (10 Years) 1960 DTaP, Tdap and Td Vaccines (1 - Tdap) 1977 Zoster Vaccines (1 of 2) 2008 Annual Medicare Wellness Visit 2023 COVID-19 Vaccine (1 - season) 2025 Influenza Adult (#1) 2025 06/28/2024, 06/25/2022, 06/12/2021, Additional history exists Mammogram Screening 04/09/2026 04/09/2024, 04/06/2023, 10/07/2022, Additional history exists RSV Immunization or 60+ Years (1 - 1-dose 75+ series) 2033 Dexa Scan (General) Completed 02/22/2023, Pneumococcal Vaccine: 50+ Years Completed 03/29/2023, 07/11/2018, 04/07/2012 Hepatitis C Completed 08/09/2023, 08/09/2023 Hepatitis A Vaccines Aged Out No long er eligible based on patient's age to complete this topic Meningococcal B Vaccine Aged Out No l onger eligible based on patient's age to complete this topic Meningococcal Vaccine Aged Out No jerzy jeramy eligible based on patient's age to complete this topic RSV Immunizations Under 20 Months Aged Out No longer eligible based on patient's age to complete this topic Insurance AETNA MEDICARE Advance Directives * Full Code (Latest Code Status on File) Date Activated Date Inactivated Comments 05/06/2022 6:12 PM 05/09/2022 5:44 PM Care Teams Paediatric Thoracic Physician Relationship Specialty Start Date End Date Haleigh Young MD [address] [facility] [address] [place], [place] [id number] PCP - General FAMILY PRACTICE 12/19/24
--- OUTSIDE RECORDS SUMMARY | 2025-07-04 17:43 | XMS_ITS | Encounter Summary ---
Author Organization [facility] Address [address] [facility] [place] [address] Care Team Providers Care Oncology Nurse Name Role Phone Maya Mcclain MD Primary Care Provider [phone] Encounter Details Date Type Department Care Team (Late st Contact Info) Description 10/14/2023 Lab Requisition [facility] - DermPath Lab [address] [facility] [place] [address] Ketan Sheppard MD [facility] DERMATOLOGY [address] [place] [phone] Dermatitis, unspecified Social History Tobacco Use Types Packs/Day Years Used Date Smoking Tobacco: Former Cigarettes Q uit: 10/24/2009 Smokeless Tobacco: Never Alcohol Use Standard Drinks/Week Comments Never 0 (1 standard drink = 0.6 oz pur e alcohol) Comments Unknown Sex and Gender Information Value Date Recorded Sex Assigned at Not on file Legal Sex Female 6:32 AM WORKERS COMPENSATION LEGAL SECRETARY Gender Identity Not on file Sexual Orientation Not on file documented as of this encounter Plan of Treatment Not on file documented as of this encounter Procedures Procedure Name Priority Date/Time Associated Diagnosis Comments DERMATOPATHOLOGY Routine 10/14/2023 3:33 AM WORKERS COMPENSATION LEGAL SECRETARY Dermatitis, unspecified documented in this encounter Results * DERMATOPATHOLOGY (10/14/2023 3:33 AM WORKERS COMPENSATION LEGAL SECRETARY) Case Report Dermatopathology Report Case: [id number] Authorizing Provider: Ketan Sheppard MD Collected: 10/14/2023 03:33 AM Ordering Location: [facility] DermPath Lab Received: 10/17/2023 02:24 PM Pathologist: Ruby Licona MD Specimen: Skin, left buttock 4:27 PM [facility] DERMATOPATHOLOGY LABORATORY Final Diagnosis Specimen A. SKIN, left buttock: EPIDERMAL NECROSIS SUGGESTIVE OF EXCORIATION (L98.499) (see microscopic description) 4:27 PM [facility] DERMATOPATHOLOGY LABORATORY at 1627 WORKERS COMPENSATION LEGAL SECRETARY Clinical History Atopic dermatitis vs contact dermatitis other vs scabies 4:27 PM [facility] DERMATOPATHOLOGY LABORATORY Gross Description Specimen A: Received is one formalin filled container labeled with the patient's name and designated left buttock. The specimen consists of a punch biopsy measuring 4x4x4 mm, bisected. Jar 0. 4:27 PM [facility] DERMATOPATHOLOGY LABORATORY Microscopic Description Specimen A. SKIN, left buttock: The epidermis is focally necrotic and covered with a scale-crust. There is fibrin at the base. Additional deeper sections were obtained and reviewed. Grocott's methenamine silver (GMS) stain is negative for fungal elements in the sections examined. 4:27 PM [facility] DERMATOPATHOLOGY LABORATORY Disclaimer An external and internal positive and negative controls are appropriate for the histochemical, immunohistochemical and immunofluorescence stain(s) in this case (if any), except where stated explicitly. The performance characteristics of the stain(s) cited in this report were developed and its performance characteristic determined by the Dermatopathology Laboratory at [facility], directed by Dr. Jaylan Cunningham. These tests need not be, and therefore are not, approved by the [place] Food and Drug Administration. The tests are used for clinical purposes. Billing Codes Specimen Charges Stain Charges 11138 1 98697 1 4 4:27 PM [facility] DERMATOPATHOLOGY LABORATORY Embedded Images 4 4:27 PM [facility] DERMATOPATHOLOGY LABORATORY Pathology/Cytolo gy TISSUE SPECIMEN FROM SKIN / Unknown 10/14/2023 3:33 AM WORKERS COMPENSATION LEGAL SECRETARY 10/17/2023 2:24 PM WORKERS COMPENSATION LEGAL SECRETARY us Ketan Sheppard MD LAB - PATHOLOGY/CYTOLOGY [facility] Final Result DERMATOPATHOLOGY LABORATORY [facility] - Department of Dermatology [facility] Specialized Medicine [address] [place] [address], [address] [phone] documented in this encounter Visit Diagnoses Diagnosis Dermatitis, unspecified documented in this encounter Care Teams Oncology Nurse Relationship Specialty Start Date End Date Maya Mcclain MD [address] [place] [phone] PCP - General 10/31/20 documented as of this encounter
--- OUTSIDE RECORDS SUMMARY | 2025-07-04 17:43 | XMS_ITS | Clinical Summary ---
Author Organization [facility] Address [address] [place] [address] Care Team Providers Care Grocery Clerk Stocking Name Role Phone Luis aSunders MD Unavailable [phone] Jammie Burdick MD Unavailable [phone] Ervin Garcia MD Unavailable [phone] Haleigh Young MD Primary Care Provi naye Jean Carlos Berrios MD Unavailable [phone] Braden Sherwood DO Unavailable [phone] Ladonna Martinez NP Unavailable Kamila Witt NP Unavailable [phone] Allergies Active Allergy Reactions Criticality Noted Date [...] 40 mg tabletIndications:Coron dinorah artery disease involving [place] coronary artery of [place] heart without angina pectoris,Pure hypercholesterolemia Take 1 tablet (40 mg total) by mouth nightly 90 tablet 3 025 Active benzonatate (TESSALON) 200 mg capsule Take 1 capsule (200 mg total) by mouth 3 (three) times a day as needed for cough 60 capsule 2 025 Active boitnfxyyvs-chlwzlxzr-l ilanter (Trelegy Ellipta) 200-62.5-25 mcg inhalerIndications:Main tenance Therapy for Asthma Inhale 1 puff daily 180 each 11 025 Active albuterol HFA (PROVENTIL HFA,VENTOLIN HFA,PROAIR HFA) 90 mcg/actuation inhalerIndications: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 obstructive pulmonary disease, unspecified COPD type [...] 11/01/2023 Assessment & Plan (11/01/2023 10:01 AM OVERWEAVER): Chronic, persistent Encouraged to follow up with pain management Encouraged to update me after the visit Continue lyrica as prescribed Urinary incontinence 11/01/2023 Assessment & Plan (11/01/2023 10:05 AM OVERWEAVER): Chronic, persistent Will place referral to urology for guidance Update me after the visit Incontinence of feces with fecal urgency 024 Assessment & Plan (11/01/2023 10:02 AM OVERWEAVER): Chronic, persistent Encouraged to follow up with Dr Burdick Update me after the visit Call for questions Chronic respiratory failure with hypoxia 024 Assessment & Plan (06/28/2024 11:25 AM CDT): Chronic. Stable. Continue supplemental oxygen, 2 L. continue to follow with pulmonology. Assessment & Plan (04/12/2024 1:17 PM CDT): Chronic, persistent Oxygen level improved today Will reach out to her grocery clerk selling given her numbers, I do worry her [...] was reviewed with the patient and her manpower development manager Assessment & Plan (02/09/2024 11:30 AM CDT): [...] provided. Assessment & Plan (10/29/2024 1:54 PM OVERWEAVER): BMI Follow-up includes: education provided. Assessment & Plan (10/17/2024 12:08 PM OVERWEAVER): Chronic, stable BMI Follow-up includes: Encouraged healthy [...] and cardizem Continue to follow with her licensed marriage and family therapist Update me with any changes Call for [...] 11/24/2021 Assessment & Plan (11/01/2023 10:01 AM OVERWEAVER): Chronic, persistent Encouraged to follow up with [...] PM CDT): Chronic, stable Continue valtrex through CARDIOVASCULAR SURGEON History of Lena fundoplication 08/17/2021 Leukocytosis 08/17/2021 [...] Continue Cardizem Set up follow-up with her licensed marriage and family therapist as well Update me with any changes Call for questions or concerns Assessment & Plan (05/21/2022 6:17 PM CDT): With SVT during her hospital stay at [facility] Continue harman Encouraged follow up with cardiology [...] please contact the office. I strongly encourage [employer] sign ups. It can facilitate communication flow. [...] monitor Assessment & Plan (09/16/2020 3:02 PM OVERWEAVER): Unclear etiology She is not specific on [...] pt Assessment & Plan (09/16/2020 3:01 PM OVERWEAVER): Currently only taking effexor contineu current management Assessment & Plan (07/15/2020 8:50 AM OVERWEAVER): We will start lyrica 150 mg BID [...] groups. Assessment & Plan (11/01/2023 10:06 AM OVERWEAVER): Chronic, worse Encouraged to reach out to [...] concerns Assessment & Plan (07/15/2020 8:48 AM OVERWEAVER): We will continue this current regime, she [...] 07/08/2020 Assessment & Plan (11/01/2023 10:01 AM OVERWEAVER): Chronic, persistent Encouraged to follow up with [...] of lumbar spine. Continue pain management with [place] 5/325 mg q.6 p.r.n., lidocaine patch, Flexeril 5 mg t.i.d. p.r.n.. PT/OT care. Patient need to follow up with Dr. Delatorre outpatient Assessment & Plan (11/24/2021 10:34 AM CDT): Will check xray We discussed PT- she is unable to afford it She is going home exercises Continue supportive care Further guidance once we have the results Assessment & Plan (07/15/2020 8:48 AM OVERWEAVER): Recommend THC, we will seek out a [...] questions Assessment & Plan (07/15/2020 8:49 AM OVERWEAVER): Remeron and effecor Taking only 150 mg [...] (09/07/2018): Added automatically from request for surgery [id number] Assessment & Plan (03/29/2023 4:54 PM CDT): Chronic, stable Continue Nexium Continue to follow with Dr. Saunders Assessment & Plan (01/26/2022 12:53 PM CDT): Referral to Dr Saunders placed Continue nexium History of aspiration pneumonia 05/18/2018 Iron deficiency anemia, unspecified 03/20/2018 Assessment & Plan (11/01/2023 10:09 AM OVERWEAVER): Chronic, stable Managed by heme/onc Update me [...] CDT): Now uses vaping Chronic bullous emphysema ([facility]) 10/26/2016 Overview (12/17/2016): Bullous emphysema [...] Garcia Assessment & Plan (07/15/2020 8:47 AM OVERWEAVER): Likely resulting in her SOB with the change in medications Continue inhaler and seeing pulm History of gastric ulcer 08/04/2015 Assessment & Plan (03/29/2023 4:54 PM CDT): Resolved Continue Nexium Update me with changes or concerns Continue to follow with GI History of fall Spinal stenosis of lumbar region at multiple [facility] els Assessment & Plan (11/01/2023 10:02 AM OVERWEAVER): Chronic, persistent Encouraged to follow up with [...] 01/01/2025 Assessment & Plan (07/27/2024 3:57 PM OVERWEAVER): Symptom duration 2 weeks Recent covid, flu [...] (05/30/2022): Added automatically from request for surgery [id number] Diverticulitis large intesti ne w/o perforation or [...] CDT): Chronic, persistent Labs reviewed from her carriage feeder Referral to hematology pending Update me after [...] (09/07/2018): Added automatically from request for surgery [id number] COPD with acute exacerbation 07/11/2018 04/02/2025 Overview [...] inhalers Assessment & Plan (09/16/2020 3:02 PM OVERWEAVER): Continue seeing pulm assistant superintendent for curriculum antibiotic and steroids Assessment & Plan (07/08/2020 8:35 AM CDT): Continue to follow-up with pulm Shortness of breath 10/26/2016 01/02/20 25 Overview (12/17/2016): Dyspnea on exertion Assessment & Plan (02/09/2024 11:26 AM CDT): Chronic. Patient reports shortness of breath is worse when her heart rate seems to be elevated. - she has a call in to the new licensed marriage and family therapist to see if she can follow-up sooner [...] Type Department Care Team Description 07/02/2025 Telephone [facility] Family Medicine [address] [address] Haleigh Young MD 06/19/2025 Telephone [facility] Cardiology [address] [facility] [address] [phone] González Dunlap MD 04/24/2025 10:30 AM CDT Office Visit [facility] Pulmonary [address] [place] [address] Ervin Garcia MD Dyspnea on exertion; Chronic obstructive pulmonary disease, unspecified COPD type (HCC); Wheezing 04/24/2025 Telephone [facility] Pulmonary [address] [place] [address] Ervin Garcia MD Medical Question/Miscellaneo us 04/03/2025 Telephone [facility] Medicine [facility] Oncology [address] [place] [address] [address] [place] [address] Fer Mckeon DO 04/03/2025 Telephone [facility] Family Medicine [address] [phone] Haleigh Young MD Medical Question/Miscellaneo [...] 09/07/2018 Added automatically from request for surgery [id number] Community acquired pneumonia, bilateral 08/17/20 21 Diverticulitis [...] materials from doctor or pharmacy Sometimes 09/22/2023 [facility] Utilities Answer Date Recorded In the past 12 months has th e [employer], gas, oil, or water [employer] threatened to shut off services in [...] How often do you attend [facility] or restorationism services? Never 03/28/2025 Do you belong to any clubs o r organizations such as orthodox groups, unions, fraternal or athletic groups, [...] place to sleep or slept in a longterm (including now)? No 10/17/2023 PHQ-9 Answer Date [...] any time in the past 12 m [facility], were you homeless or living in a longterm (including now)? No 03/28/2025 Personal Safety Answer Date Recorded Have you ever been in or are you currently in a harmful physical or emotional relationship or is someone making you feel afraid or unsafe? Denies 03/27/2025 Comments No Sex and Gender Information Value Date Recorded Sex Assigned at Not on file Legal Sex Female 1:41 PM OVERWEAVER Gender Identity Not on file Sexual Orientation [...] Care Management On track( 025 10:21 AM OVERWEAVER) Bev Walton, CUSTOMER QUALITY SPECIALIST Note: Problem: Need for Community Resources Interventions: - Provide patient/family with a list of appropriate resources for their specific need. - Help to coordinate resources. - Follow up to ensure patient/family has connected with the appropriate resources / personnel. Medical Devices Implanted Type Area Canadian Bacon Tier Device Identifier Shelf Expiration Date Model / Serial / Lot Left Foot Screws Foot Procedures Procedure Name Priority Date/Time Associated Diagnosis Comments DIAGNOSTIC MAMMOGRAM BILATERAL W SUKUMAR Schedule Routine, Read Routine (OP Routine) 04/09/2024 8:33 AM CDT Follow-up examination of abnormal mammogram COLONOSCOPY 10/28/2023 3:01 PM OVERWEAVER HEPATITIS C ANTIBODY Routine 08/09/2023 1:28 PM OVERWEAVER DEXA AXIAL SKELETON BONE DENSITY 1 OR [...] Gen Anderson M.D. RL: REBECCA Report ID: [id number] Reading Location: [facility] us Haleigh Young MD IMG MAMMO PROCEDURE S Final Result * COLONOSCOPY (10/28/2023 3:01 PM OVERWEAVER) Anatomical Region Laterality Modality Other Narrative Procedure Note Jammie Burdick MD - 10/28/2023 3:01 PM CST [facility] GI ENDOSCOPY Patient Name: Dipti Luna Procedure Date: 10/28/2023 3:01 PM Date of : 1960 Admit Type: Outpatient Age: 63 Gender: Female Attending MD: Jammie Burdick M.D. Room: [facility] ENDOSCOPY ROOM 06 Note Status: [...] The scope was passed under direct vision.The [id number]-[id number] colonoscope was introduced through theanus and advanced [...] On: 10/28/2023 3:01 PM Recognized by the [employer] for promoting quality in endoscopy Jammie Burdick MD ENDOSCOPY PROCEDURES Tash l Result * Hepatitis C antibody Blood (08/09/2023 1:28 PM OVERWEAVER) Hep C Ab Nonreactive Nonreactive [facility]T [...] revised on 2019. Blood 08/09/2023 1:28 PM OVERWEAVER 08/09/2023 6:31 PM OVERWEAVER Jammie Burdick MD LAB MICROBIOLOGY - GENERA L ORDERABLES Final Result [facility] [address] [facility] [facility] Department [place] [address] * DEXA Axial Skeleton Bone Density Multi Site (02/22/2023 10:45 AM CDT) Anatomical Region Laterality Modality Body N/A Mammography 02/22/2023 3:45 PM CDT Narrative 02/22/2023 3:45 PM CDT EXAM DESCRIPTION: DEXA AXIAL SKELETON BONE DENSITY 1 OR MORE SITES REASON FOR STUDY: 62 y/o year old F with given history of screening. Canadian Bacon Tier/Model: TIM Group A (S/N [id number]) CLINICAL INFORMATION: Current height: 64 inches Maximum [...] Elodia Recinos M.D. TW: BEV Report ID: [id number] Reading Location: [id number] Procedure Note Elodia Recinos MD - 02/22/2023 EXAM DESCRIPTION: DEXA AXIAL SKELETON BONE DENSITY 1 OR MORE SITES REASON FOR STUDY: 62 y/o year old F with given history of screening. Canadian Bacon Tier/Model: TIM Group A (S/N [id number]) CLINICAL INFORMATION: Current height: 64 inches Maximum [...] Elodia Recinos M.D. TW: BEV Report ID: [id number] Reading Location: [id number] Brenda Stewart HOUSE WORKER GENERAL IMG DXA PROCEDURES Final Result * Pap and High Risk HPV, reflex to Genotyping (12/22/2022 7:56 AM CDT) Thin prep (Pap test) 12/22/2022 7:56 AM CDT 12/23/2022 7:56 AM CDT Narrative PATHOLOGY [facility] - 12/28/2022 11:38 AM CDT [facility] Department of Pathology [address] [place] [address] Final Report with Addendum Note to Patients: [...] the details. Patient Name: DIPTI LUNA [address]: [address] [place] [address], [address] [place], [place] [address] Gender: F : 1960 (Age: 62) Service: Location: [facility] : [id number] [facility] #: [id number] Patient Type: [facility] SPECIMEN Taken: 12/22/2022 Received: 12/23/2022 Accessioned:: 12/24/2022 Reported: 12/28/2022 Physician(s): Nia Alfred M.D. [facility] Diagnosis: SOURCE OF SPECIMEN SCREENING THIN [...] determined by the Surgical Pathology Department at [facility] as part of an ongoing aircraft quality control inspector program and in compliance with federally mandated [...] characteristics determined by the Surgical Pathology Department [facility]. It has not been cleared or approved by the [place]. S. Food and Drug Administration. Nia Alfred MD LAB CYTOLOGY ORDERABLES F inal Result PATHOLOGY [facility] from Last 3 Months or Most Recently Relevant to Health Maintenance Insurance [facility] Advance Directives For more information, please contact: [phone] Documents on File Type Date Recorded Patient Braille Proofreader Expl anation ADVANCE DIRECTIVE 02/01/2024 1:59 PM POLST - Phys Order for PT Preferences ADVANCE DIRECTIVE 01/30/2024 1:03 PM Power of Computer Specialist-Medical ADVANCE DIRECTIVE 06/02/2022 12:57 PM Jami r of Computer Specialist-Medical ADVANCE DIRECTIVE 06/02/2022 12:56 PM Yoon ng [...] 2:29 PM 06/02/2022 10:04 PM Care Teams Grocery Clerk Stocking Relationship Specialty Start Date End Date Haleigh Young MD [address] [place] [address] PCP - General Family Medicine 11/24/21 Luis Saunders MD Referring Physician Gastroenterology 07/31/18 Jammie Burdick MD Referring Physician Gastroenterology 07/31/18 Ervin Garcia MD [address] [facility] [address] [place] [address] Consulting Physician Pulmonary Disease 07/08/20 Jean Carlos Berrios MD [address] [place] [address] Referring Physician Obstetrics and Gynecology 02/23/22 Braden Sherwood DO [address] [facility] [address] [place] [address] Referring Physician Psychiatry 06/04/22 Ladonna Martinez, COLLIN [address] [facility] [address] [place] [address] Nurse Practitioner Nurse Practitioner 10/31/23 Kamila Witt NP [address] [facility] [address] [place] [address] Nurse Practitioner Hospice and Palliative Medicine 03/01/24
--- OUTSIDE RECORDS SUMMARY | 2025-07-04 17:43 | XMS_ITS | Clinical Summary ---
Author Organization [facility] Address [facility] [place] [address] Care Team Providers Care Land Inspector Name Role Phone Haleigh Young MD Primary [...] 6:12 PM 05/09/2022 5:44 PM Care Teams Land Inspector Relationship Specialty Start Date End Date Haleigh Young MD [address] [facility] [address] [place], [place] [id number] PCP - General FAMILY PRACTICE 12/19/24
--- OUTSIDE RECORDS SUMMARY | 2025-07-04 17:43 | XMS_ITS | Clinical Summary ---
Author Organization [facility] Address [address] [place] [address] Care Team Providers Care Machine Stemmer Name Role Phone Maya Mcclain MD Primary Care Provider Source Comments [facility],non-owned Affiliates and Associated Physician Practices is amultiple site organization consisting of ambulatory clinics and hospital sitesin [place], [place], [place] and [place]. This disclosure is being madepursuant to the Care Everywhere program and may not contain all information available regarding this patient. Last updated 18.[employer] [facility] Allergies Active Allergy Reactions Criticality Noted Date [...] on file Legal Sex Female 6:32 AM BROADCAST FIELD SUPERVISOR Gender Identity Not on file Sexual [...] AETNA AETNA AETNA MEDICARE ADV Care Teams Machine Stemmer Relationship Specialty Start Date End Date Maya Mcclain MD [address] [place] [phone] PCP - General 10/31/20
[2025-07-04] MEDS: diazePAM (*CRX) 5 MG TABLET PO (17:58)
[2025-07-04] MEDS: MORPHINE SULFATE (*CRX) 15 MG TABCR PO (20:33)
[2025-07-04] MEDS: METOPROLOL TARTRATE 25 MG TABLET PO (20:33)
[2025-07-04] MEDS: SERTRALINE HCL 50 MG TABLET PO (20:33)
[2025-07-04] MEDS: IPRATROPIUM 0.5 MG/ALBUTEROL SULFATE 2.5 MG (BASE) AMPUL.NEB 3 ML INHALATION (20:50)
[2025-07-05] VITALS (16 sets, daily range): BP systolic 114–141; BP diastolic 54–97; PULSE 82–98; RESP 16–26; TEMP 36.6–36.9; O2SAT 90–98
--- NOTE | 2025-07-05 00:07 | PM.IMHP ---
H&P: HPI History of Present Illness Date/Time: 07/04/25 190 Chief Complaint: GIP admission. End-stage COPD Narrative: 65-year-old female past medical history of end-stage COPD, anxiety, fibromyalgia presents to the ED on 07/04/2025 via EMS from home alone with complaints of increased shortness of breath and hypoxia. She is active with [facility] and lives alone. Patient was initially recommended for hospice care in November 2024. Unsure when she was actually admitted to hospice. Today is the patient's 3rd ED visit this month for acute on chronic respiratory failure. Patient did not revoked hospice and will be admitted under [facility] for symptom control of dyspnea, pain, and anxiety. Will need placement due to inability to take care of herself and living home alone. Discontinued labs and care directed therapies. Comfort meds ordered by hospice provider. Review of Systems Review of Systems: ROS unobtainable: Yes unobtainable due to mental status PMFSH Past Medical History Medical History Anxiety Anemia in chronic illness Hospice care patient COPD exacerbation Acute on chronic respiratory failure with hypoxia Social History Social History Smoking status: Current some day smoker Tobacco type: cigarettes Additional smoking assessment comments: Uses vape pen. Quit smoking 2000. Alcohol intake: never Substance use: never Lack of Transportation: YES Lack of Food: Often True Current Housing: I Have Housing Concerned About Future Housing: No Difficulty Paying Gas/Electric Bills: No Difficulty Paying for Meds: No Currently Unemployed: No Education: High School Diploma/GED Difficulty w/ Childcare or Family Care: No Spiritual care concerns: No Meds Home Medications and Allergies Home Medications ?Medication ?Instructions ?Recorded ?Confirmed ?Type buspirone 5 mg tablet 5 mg PO TID 06/16/25 07/04/25 History hydromorphone 2 mg tablet 2 mg PO Q4H PRN pain 06/16/25 07/04/25 History morphine 15 mg tablet,extended 15 mg PO Q12H 06/16/25 07/04/25 History release albuterol sulfate 2.5 mg/3 mL 2.5 mg (3 mL) continuous 06/20/25 07/04/25 Rx (0.083 %) solution for nebulization nebulization QID 30 days #0 mL albuterol sulfate 90 mcg/actuation 2 puff inhalation Q6H PRN Wheezing 06/20/25 07/04/25 Rx aerosol inhaler 30 days #0 grams aspirin 81 mg tablet,delayed 81 mg PO DAILY 30 days #0 tabs 06/20/25 07/04/25 Rx release benzonatate 200 mg capsule 200 mg PO TID cough 30 days #0 caps 06/20/25 07/04/25 Rx dupilumab 300 mg/2 mL subcutaneous 300 mg (2 mL) subcut .COMPLEX 30 06/20/25 07/04/25 Rx pen injector (Dupixent) days #0 mL fluticasone fur. 200 mcg-umeclid 1 inh inhalation DAILY 30 days #0 06/20/25 07/04/25 Rx 62.5 mcg-vilant 25 mcg ea inhalat.powder (Trelegy Ellipta) guaifenesin 1,200 mg tablet, 1,200 mg PO Q12H 30 days #0 tabs 06/20/25 07/04/25 Rx extended release 12 hr (Mucinex) hydromorphone 2 mg tablet 2 mg PO Q4H PRN pain 30 days #0 06/20/25 07/04/25 Rx tabs lorazepam 1 mg tablet 1 mg PO Q4H PRN anxiety 30 days #0 06/20/25 07/04/25 Rx tabs metoprolol tartrate 25 mg tablet 25 mg PO Q12H 30 days #0 tabs 06/20/25 07/04/25 Rx mirtazapine 30 mg disintegrating 30 mg PO HS 30 days #0 tabs 06/20/25 07/04/25 Rx tablet ondansetron HCl 4 mg tablet 4 mg PO DAILY PRN nausea and 06/20/25 07/04/25 Rx vomiting 30 days #0 tabs prednisone 10 mg tablet 10 mg PO DAILY 30 days #0 tabs 06/20/25 07/04/25 Rx sennosides 8.6 mg-docusate sodium 1 tab-cap PO BID 30 days #0 tabs 06/20/25 07/04/25 Rx 50 mg tablet (Stimulant Laxative Plus) venlafaxine 150 mg 300 mg (2 x 150 mg) PO DAILY 30 06/20/25 07/04/25 Rx capsule,extended release 24 hr days #0 caps diazepam 5 mg tablet (Valium) 5 mg PO TID PRN anxiety 07/04/25 07/04/25 History sertraline 50 mg tablet 50 mg PO QHS 07/04/25 07/04/25 History Allergies Allergy/AdvReac Type Severity Reaction Status Date / Time codeine Allergy Severe Swelling Verified 07/04/25 16:18 of Lip/Tongue/Throat Vital Signs Vital Signs - 24 hr 07/04/25 16:37 07/04/25 16:45 07/04/25 20:00 Temperature 98.4 F Pulse Rate 100 100 Respiratory Rate 20 20 Blood Pressure 114/58 L Pulse Oximetry 94 94 97 Oxygen Delivery Nasal Cannula Nasal Cannula Oxygen Flow Rate 4 4 07/04/25 20:16 07/04/25 20:33 07/04/25 20:58 Temperature 97.5 F L Pulse Rate 95 92 95 Respiratory Rate 24 H 18 Blood Pressure 127/66 Pulse Oximetry 97 Oxygen Delivery Oxygen Flow Rate 07/04/25 21:02 07/04/25 21:06 Temperature Pulse Rate 97 Respiratory Rate 18 Blood Pressure Pulse Oximetry 97 Oxygen Delivery Nasal Cannula Oxygen Flow Rate 4 Exam Narrative: GENERAL: Drowsy. Slightly tachypneic. HEAD: Normocephalic, atraumatic. EYES: PERRLA. Conjunctivae clear. NOSE: Normal no drainage. THROAT: Pharynx clear, no exudate. NECK: Trachea midline. No adenopathy, no masses. RESPIRATORY: Airway patent, decreased breath sounds throughout. O2 per nasal cannula CARDIOVASCULAR: Regular rate and rhythm BREASTS: Defer GASTROINTESTINAL: Abdomen is soft and nontender. No organomegaly. Bowel sounds normal in all quadrants. GENITOURINARY: Defer MUSCULOSKELETAL: Moves all extremities. No gross deformities. No calf tenderness. SKIN: Warm, dry, normal color. NEURO: A&O X4. Drowsy PSYCHIATRIC: Normal interaction Assessment and Plan Assessment and plan (1) Hospice care patient: Code(s): Z51.5 - Encounter for palliative care Status: Acute Assessment and Plan: Patient admitted for hospice care for uncontrolled symptoms of dyspnea, pain, anxiety .Discontinued labs and care directed therapies. Comfort meds ordered by hospice provider. Will need placement due to inability to take care of herself and living home alone. -Diazepam 2.5 IV push Q 4 p.r.n. for anxiety or restlessness -diazepam 5 mg p.o. t.i.d. -docusate/senna 1 tab q.12 hours -DuoNeb Q 4 p.r.n. and 4 times daily -morphine ER 15 mg q.12 hours -Zofran Q 4 p.r.n. -continue prednisone 10 mg daily Quality If No VTE Prophylaxis Answer both mechanical and pharmacologic: Reason no mechanical VTE proph: low risk/not indicated (Hospice patient) Hospitalist MIPS Advance Care Plan The patient's Advanced Care plan is not present because:: Hospice care is currently being or has been provided this calendar yr Medication Reconciliation I have utilized all available resources to obtain, update and review the patients current medications (includes all prescriptions, OTC, herbals, cannabis, and nutritional supplements).: Yes
[2025-07-05] MEDS: MORPHINE SULFATE (*CRX) 4 MG/ML INJ IV PUSH ×4 (05:45→16:20)
[2025-07-05] MEDS: diazePAM INJ (*CRX) 10 MG/2 ML SYRINGE 2.5 MG IV PUSH ×4 (05:46→22:30)
[2025-07-05] MEDS: IPRATROPIUM 0.5 MG/ALBUTEROL SULFATE 2.5 MG (BASE) AMPUL.NEB 3 ML INHALATION ×4 (08:26→19:54)
[2025-07-05] MEDS: ASPIRIN 81 MG CHEWABLE TABLET PO (10:13)
[2025-07-05] MEDS: VENLAFAXINE HCL XR 75 MG CAP.ER.24H 300 MG PO (10:14)
[2025-07-05] MEDS: BENZONATATE 100 MG CAPSULE 200 MG PO ×3 (10:14→16:25)
[2025-07-05] MEDS: diazePAM (*CRX) 5 MG TABLET PO ×3 (10:14→16:25)
[2025-07-05] MEDS: METOPROLOL TARTRATE 25 MG TABLET PO ×2 (10:15→21:11)
[2025-07-05] MEDS: MORPHINE SULFATE (*CRX) 15 MG TABCR PO ×2 (10:15→21:11)
--- NOTE | 2025-07-05 12:14 | PM.IMPN ---
Progress Note: A&P Assessment and Plan (1) Hospice care patient: Code(s): Z51.5 - Encounter for palliative care Status: Acute Assessment and Plan: Patient admitted for hospice care for uncontrolled symptoms of dyspnea, pain, anxiety. Comfort meds ordered. Will need placement due to inability to take care of herself and living home alone. Morphine drip recommended by hospice provider but patient is not in distress with normal RR. Consider morphine drip if her condition worsens. Comfort measures Placement being arranged. Subjective Date/time seen: 07/05/25 12:14 Interval history: 65yo female with end-stage COPD, anxiety, fibromyalgia and chronic resp failure who presents to the ED on 07/04/2025 via EMS from home alone with complaints of increased shortness of breath and hypoxia. SOB is better. Had chest pain last night lasting about 30 minutes. No fevers. No cough. Exam Narrative: AF 97.9 135/80 88 20 90% 4L Gen - NARD Chest - mostly clear and distant breath sounds. CV - RRR S1/S2 Abd - Soft, NT/ND, Positive BS Ext - No pedal edema Psych - Nml mood and affect Skin - Warm and dry Objective Data Vital Signs Vital Signs: Vital Signs - 24 hr 07/04/25 16:37 07/04/25 16:45 07/04/25 20:00 Temperature 98.4 F Pulse Rate 100 100 Respiratory Rate 20 20 Blood Pressure 114/58 L Pulse Oximetry 94 94 97 Oxygen Delivery Nasal Cannula Nasal Cannula Oxygen Flow Rate 4 4 07/04/25 20:16 07/04/25 20:33 07/04/25 20:58 Temperature 97.5 F L Pulse Rate 95 92 95 Respiratory Rate 24 H 18 Blood Pressure 127/66 Pulse Oximetry 97 Oxygen Delivery Oxygen Flow Rate 07/04/25 21:02 07/04/25 21:06 07/05/25 05:51 Temperature 98.4 F Pulse Rate 97 88 Respiratory Rate 18 20 Blood Pressure 122/80 Pulse Oximetry 97 96 Oxygen Delivery Nasal Cannula Oxygen Flow Rate 4 07/05/25 08:00 07/05/25 08:26 07/05/25 08:26 Temperature Pulse Rate 88 96 Respiratory Rate 20 18 Blood Pressure Pulse Oximetry 90 95 Oxygen Delivery Nasal Cannula Nasal Cannula Oxygen Flow Rate 4 4 07/05/25 08:32 07/05/25 10:11 07/05/25 10:15 Temperature 97.9 F Pulse Rate 94 88 88 Respiratory Rate 18 20 Blood Pressure 135/80 Pulse Oximetry 90 Oxygen Delivery Oxygen Flow Rate Intake/Output Intake/Output: Intake & Output 07/02/25 07/03/25 07/04/25 07/05/25 23:59 23:59 23:59 23:59 Intake Total 240 450 Balance 240 450 Meds/Results Medications: Active Medications Generic Name Dose Route Start Last Admin Trade Name Freq PRN Reason Stop Dose Admin Acetaminophen 650 mg 07/05/25 00:12 Acetaminophen 325 Mg Tablet PO Q4H PRN fever >100.4 Albuterol/Ipratropium 3 ml 07/04/25 20:00 07/05/25 08:26 Ipratropium 0.5 Mg/Albuterol Sulfate 2.5 Mg (Base) Ampul.Neb 3 Ml INHALATION 3 ml QIDRT RADHA Administration Albuterol/Ipratropium 3 ml 07/04/25 17:40 Ipratropium 0.5 Mg/Albuterol Sulfate 2.5 Mg (Base) Ampul.Neb 3 Ml INHALATION Q4H PRN SHORTNESS OF BREATH/WHEEZING Aspirin 81 mg 07/05/25 08:00 07/05/25 10:13 Aspirin 81 Mg Chewable Tablet PO 81 mg DAILY@0800 RADHA Administration Benzonatate 200 mg 07/05/25 09:00 07/05/25 10:14 Benzonatate 100 Mg Capsule PO 200 mg TID RADHA Administration Diazepam 5 mg 07/04/25 17:50 07/05/25 10:14 Diazepam (*Crx) 5 Mg Tablet PO 5 mg TID RADHA Administration Diazepam 2.5 mg 07/04/25 17:48 07/05/25 05:46 Diazepam Inj (*Crx) 10 Mg/2 Ml Syringe IV PUSH 2.5 mg Q4H PRN Administration ANXIETY,RESTLESSNESS,AGITATION Metoprolol Tartrate 25 mg 07/04/25 21:00 07/05/25 10:15 Metoprolol Tartrate 25 Mg Tablet PO 25 mg Q12HR RADHA Administration Morphine Sulfate 15 mg 07/04/25 21:00 07/05/25 10:15 Morphine Sulfate (*Crx) 15 Mg Tabcr PO 15 mg Q12HR RADHA Administration Morphine Sulfate 2 mg 07/05/25 00:16 Morphine Sulfate (*Crx) 4 Mg/Ml Inj IV PUSH Q2H PRN Pain Rated 1-3 Morphine Sulfate 4 mg 07/05/25 00:16 07/05/25 10:26 Morphine Sulfate (*Crx) 4 Mg/Ml Inj IV PUSH 4 mg Q2H PRN Administration Pain Rated 4-6 Morphine Sulfate 6 mg 07/05/25 00:16 Morphine Sulfate Inj (*Crx) 10 Mg/Ml Amp IV PUSH Q2H PRN Pain Rated 7-10 Ondansetron HCl 4 mg 07/04/25 17:42 Ondansetron Inj 4 Mg/2 Ml Vial IV PUSH Q4H PRN Nausea Polyethylene Glycol 17 gm 07/05/25 00:20 Polyethylene Glycol 3350 17 Gm Powd.Pack PO QAM PRN Constipation Prednisone 10 mg 07/05/25 08:00 07/05/25 10:13 Prednisone 10 Mg Tablet PO 10 mg DAILY@0800 RADHA Administration Senna/Docusate Sodium 1 tab 07/05/25 09:00 07/05/25 10:17 Senna/Docusate Sodium Tablet PO Not Given Q12HR RADHA Sertraline HCl 50 mg 07/05/25 21:00 Sertraline Hcl 50 Mg Tablet PO QHS RADHA Venlafaxine HCl 300 mg 07/05/25 08:00 07/05/25 10:14 Venlafaxine Hcl Xr 75 Mg Cap.Er.24h PO 300 mg DAILY@0800 RADHA Administration
[2025-07-05] MEDS: BENZOCAINE/MENTHOL (*BKC) 18 EA LOZENGE 1 LOZENGE PO (18:13)
[2025-07-05] MEDS: MORPHINE SULFATE INJ (*CRX) 10 MG/ML AMP 6 MG IV PUSH ×2 (18:14→21:12)
[2025-07-05] MEDS: SERTRALINE HCL 50 MG TABLET PO (21:11)
[2025-07-05] MEDS: guaiFENesin 12 HR 600 MG TABCR 1200 MG PO (21:11)
[2025-07-05] MEDS: CALCIUM CARBONATE (TUMS) 500 MG (200 MG ELEMENTAL) PO (23:02)
[2025-07-06] VITALS (17 sets, daily range): BP systolic 120–127; BP diastolic 61–72; PULSE 50–97; RESP 18–22; TEMP 36.3–36.8; O2SAT 91–97
[2025-07-06] MEDS: MORPHINE SULFATE INJ (*CRX) 10 MG/ML AMP 6 MG IV PUSH ×6 (01:30→22:51)
[2025-07-06] MEDS: IPRATROPIUM 0.5 MG/ALBUTEROL SULFATE 2.5 MG (BASE) AMPUL.NEB 3 ML INHALATION ×5 (02:43→20:04)
[2025-07-06] MEDS: diazePAM INJ (*CRX) 10 MG/2 ML SYRINGE 2.5 MG IV PUSH ×3 (02:44→22:52)
[2025-07-06] MEDS: MORPHINE SULFATE (*CRX) 15 MG TABCR PO ×2 (09:00→20:59)
[2025-07-06] MEDS: guaiFENesin 12 HR 600 MG TABCR 1200 MG PO ×2 (09:00→20:58)
[2025-07-06] MEDS: BENZONATATE 100 MG CAPSULE 200 MG PO ×3 (09:00→16:43)
[2025-07-06] MEDS: ASPIRIN 81 MG CHEWABLE TABLET PO (09:00)
[2025-07-06] MEDS: diazePAM (*CRX) 5 MG TABLET PO ×3 (09:01→16:43)
[2025-07-06] MEDS: METOPROLOL TARTRATE 25 MG TABLET PO ×2 (09:01→20:59)
[2025-07-06] MEDS: VENLAFAXINE HCL XR 75 MG CAP.ER.24H 300 MG PO (09:01)
[2025-07-06] MEDS: MORPHINE SULFATE (*CRX) 4 MG/ML INJ IV PUSH (11:44)
--- NOTE | 2025-07-06 12:17 | PM.IMPN ---
Progress Note: A&P Assessment and Plan (1) Hospice care patient: Code(s): Z51.5 - Encounter for palliative care Status: Acute Assessment and Plan: Patient admitted for hospice care for uncontrolled symptoms of dyspnea, pain, anxiety. Comfort meds ordered. Will need placement due to inability to take care of herself and living home alone. Morphine drip recommended by hospice provider but patient is not in distress with normal RR. Consider morphine drip if her condition worsens. Comfort measures Placement being arranged. Discharge at any time Subjective Date/time seen: 07/06/25 12:17 Interval history: 65yo female with end-stage COPD, anxiety, fibromyalgia and chronic resp failure who presents to the ED on 07/04/2025 via EMS from home alone with complaints of increased shortness of breath and hypoxia. Feeling okay. Shortness of breath is better. She does have some chronic pain in her back legs but no change recently. Exam Narrative: AF 98.2 120/61 92 20 91% 5L Gen - NARD Chest - clear, distant breath sounds. CV - RRR S1/S2 Abd - Soft, NT/ND, Positive BS Ext - No pedal edema Psych - Nml mood and affect Skin - Warm and dry Objective Data Vital Signs Vital Signs: Vital Signs - 24 hr 07/05/25 12:34 07/05/25 12:40 07/05/25 13:29 Temperature 97.8 F Pulse Rate 82 83 91 Respiratory Rate 18 18 26 H Blood Pressure 114/54 L Pulse Oximetry 98 Oxygen Delivery Oxygen Flow Rate 07/05/25 16:24 07/05/25 16:29 07/05/25 19:55 Temperature Pulse Rate 93 94 Respiratory Rate 18 18 Blood Pressure Pulse Oximetry 92 Oxygen Delivery Nasal Cannula Oxygen Flow Rate 5 07/05/25 19:55 07/05/25 20:01 07/05/25 21:10 Temperature Pulse Rate 98 90 Respiratory Rate 16 16 Blood Pressure Pulse Oximetry 98 Oxygen Delivery Nasal Cannula Oxygen Flow Rate 5 07/05/25 21:11 07/05/25 22:00 07/06/25 02:44 Temperature 98.1 F Pulse Rate 95 95 50 L Respiratory Rate 18 20 Blood Pressure 141/97 H Pulse Oximetry 98 Oxygen Delivery Oxygen Flow Rate 07/06/25 02:50 07/06/25 06:00 07/06/25 07:51 Temperature 98.2 F Pulse Rate 59 L 97 Respiratory Rate 20 18 Blood Pressure 120/61 Pulse Oximetry 92 91 Oxygen Delivery Nasal Cannula Oxygen Flow Rate 5 07/06/25 07:51 07/06/25 08:00 07/06/25 08:00 Temperature Pulse Rate 95 92 92 Respiratory Rate 20 20 20 Blood Pressure Pulse Oximetry 91 Oxygen Delivery Nasal Cannula Oxygen Flow Rate 5 07/06/25 09:01 Temperature Pulse Rate 92 Respiratory Rate Blood Pressure Pulse Oximetry Oxygen Delivery Oxygen Flow Rate Intake/Output Intake/Output: Intake & Output 07/03/25 07/04/25 07/05/25 07/06/25 23:59 23:59 23:59 23:59 Intake Total 240 1280 0 Output Total 1000 Balance 240 1280 -1000 Meds/Results Medications: Active Medications Generic Name Dose Route Start Last Admin Trade Name Freq PRN Reason Stop Dose Admin Acetaminophen 650 mg 07/05/25 00:12 Acetaminophen 325 Mg Tablet PO Q4H PRN fever >100.4 Albuterol/Ipratropium 3 ml 07/04/25 20:00 07/06/25 07:51 Ipratropium 0.5 Mg/Albuterol Sulfate 2.5 Mg (Base) Ampul.Neb 3 Ml INHALATION 3 ml QIDRT RADHA Administration Albuterol/Ipratropium 3 ml 07/04/25 17:40 07/06/25 02:43 Ipratropium 0.5 Mg/Albuterol Sulfate 2.5 Mg (Base) Ampul.Neb 3 Ml INHALATION 3 ml Q4H PRN Administration SHORTNESS OF BREATH/WHEEZING Aspirin 81 mg 07/05/25 08:00 07/06/25 09:00 Aspirin 81 Mg Chewable Tablet PO 81 mg DAILY@0800 [facility] Administration Benzocaine 1 lozenge 07/05/25 18:03 07/05/25 18:13 Benzocaine/Menthol (*Bkc) 18 Ea Lozenge PO 1 lozenge PRN PRN Administration Sore Throat Benzonatate 200 mg 07/05/25 09:00 07/06/25 09:00 Benzonatate 100 Mg Capsule PO 200 mg TID RADHA Administration Calcium Carbonate 200 mg 07/05/25 22:54 07/05/25 23:02 Calcium Carbonate (Tums) 500 Mg (200 Mg Elemental) PO 200 mg Q6H PRN Administration Indigestion Diazepam 5 mg 07/04/25 17:50 07/06/25 09:01 Diazepam (*Crx) 5 Mg Tablet PO 5 mg TID RADHA Administration Diazepam 2.5 mg 07/04/25 17:48 07/06/25 02:44 Diazepam Inj (*Crx) 10 Mg/2 Ml Syringe IV PUSH 2.5 mg Q4H PRN Administration ANXIETY,RESTLESSNESS,AGITATION Guaifenesin 1,200 mg 07/05/25 21:00 07/06/25 09:00 Guaifenesin 12 Hr 600 Mg Tabcr PO 1,200 mg Q12HR RADHA Administration Metoprolol Tartrate 25 mg 07/04/25 21:00 07/06/25 09:01 Metoprolol Tartrate 25 Mg Tablet PO 25 mg Q12HR RADHA Administration Morphine Sulfate 15 mg 07/04/25 21:00 07/06/25 09:00 Morphine Sulfate (*Crx) 15 Mg Tabcr PO 15 mg Q12HR RADHA Administration Morphine Sulfate 2 mg 07/05/25 00:16 Morphine Sulfate (*Crx) 4 Mg/Ml Inj IV PUSH Q2H PRN Pain Rated 1-3 Morphine Sulfate 4 mg 07/05/25 00:16 07/06/25 11:44 Morphine Sulfate (*Crx) 4 Mg/Ml Inj IV PUSH 4 mg Q2H PRN Administration Pain Rated 4-6 Morphine Sulfate 6 mg 07/05/25 00:16 07/06/25 06:25 Morphine Sulfate Inj (*Crx) 10 Mg/Ml Amp IV PUSH 6 mg Q2H PRN Administration Pain Rated 7-10 Ondansetron HCl 4 mg 07/04/25 17:42 Ondansetron Inj 4 Mg/2 Ml Vial IV PUSH Q4H PRN Nausea Polyethylene Glycol 17 gm 07/05/25 00:20 Polyethylene Glycol 3350 17 Gm Powd.Pack PO QAM PRN Constipation Prednisone 10 mg 07/05/25 08:00 07/06/25 09:01 Prednisone 10 Mg Tablet PO 10 mg DAILY@0800 [facility] Administration Senna/Docusate Sodium 1 tab 07/05/25 09:00 07/06/25 09:02 Senna/Docusate Sodium Tablet PO Not Given Q12HR RADHA Sertraline HCl 50 mg 07/05/25 21:00 07/05/25 21:11 Sertraline Hcl 50 Mg Tablet PO 50 mg QHS RADHA Administration Venlafaxine HCl 300 mg 07/05/25 08:00 07/06/25 09:01 Venlafaxine Hcl Xr 75 Mg Cap.Er.24h PO 300 mg DAILY@0800 RADHA Administration
[2025-07-06] MEDS: SENNA/DOCUSATE SODIUM TABLET 1 TAB PO (20:58)
[2025-07-06] MEDS: SERTRALINE HCL 50 MG TABLET PO (20:59)
[2025-07-06] MEDS: CALCIUM CARBONATE (TUMS) 500 MG (200 MG ELEMENTAL) PO (21:06)
[2025-07-07] VITALS (17 sets, daily range): BP systolic 117–126; BP diastolic 62–68; PULSE 64–100; RESP 16–24; TEMP 36.1–36.9; O2SAT 94–99
[2025-07-07] MEDS: ONDANSETRON INJ 4 MG/2 ML VIAL IV PUSH (00:11)
[2025-07-07] MEDS: MORPHINE SULFATE INJ (*CRX) 10 MG/ML AMP 6 MG IV PUSH ×3 (01:11→08:03)
[2025-07-07] MEDS: diazePAM INJ (*CRX) 10 MG/2 ML SYRINGE 2.5 MG IV PUSH ×3 (04:20→20:49)
[2025-07-07] MEDS: IPRATROPIUM 0.5 MG/ALBUTEROL SULFATE 2.5 MG (BASE) AMPUL.NEB 3 ML INHALATION ×5 (04:51→20:07)
[2025-07-07] MEDS: VENLAFAXINE HCL XR 75 MG CAP.ER.24H 300 MG PO (07:52)
[2025-07-07] MEDS: ASPIRIN 81 MG CHEWABLE TABLET PO (07:52)
[2025-07-07] MEDS: BENZONATATE 100 MG CAPSULE 200 MG PO ×3 (08:00→16:48)
[2025-07-07] MEDS: METOPROLOL TARTRATE 25 MG TABLET PO ×2 (08:00→20:32)
[2025-07-07] MEDS: MORPHINE SULFATE (*CRX) 15 MG TABCR PO ×2 (08:00→20:34)
[2025-07-07] MEDS: guaiFENesin 12 HR 600 MG TABCR 1200 MG PO ×2 (08:00→20:32)
[2025-07-07] MEDS: diazePAM (*CRX) 5 MG TABLET PO ×3 (08:00→16:48)
[2025-07-07] MEDS: SENNA/DOCUSATE SODIUM TABLET 1 TAB PO ×2 (08:02→20:31)
--- NOTE | 2025-07-07 12:18 | PM.IMPN ---
Progress Note: A&P Assessment and Plan (1) Hospice care patient: Code(s): Z51.5 - Encounter for palliative care Status: Acute Assessment and Plan: Patient admitted for hospice care for uncontrolled symptoms of dyspnea, pain, anxiety. Comfort meds ordered. Will need placement due to inability to take care of herself and living home alone. Morphine drip recommended by hospice provider but patient is not in distress with normal RR. Consider morphine drip if her condition worsens. Patient is requesting using oxycodone and has had benefit with this medication. Advance Prednisone for wheezing. Add oxycodone prn for breakthrough pain. Consider advancing MS Contin. Add Miralax Comfort measures Placement being arranged. Discharge at any time Subjective Date/time seen: 07/07/25 12:18 Interval history: 65yo female with end-stage COPD, anxiety, fibromyalgia and chronic resp failure who presents to the ED on 07/04/2025 via EMS from home alone with complaints of increased shortness of breath and hypoxia. Having increasing back pain. Cough prductive of brownish sputum Exam Narrative: AF 97.6 117/66 79 16 99% 3.5L Gen - NARD Chest - inspiratory and expiratory wheeze. CV - RRR S1/S2 Abd - Soft, NT/ND, Positive BS Ext - No pedal edema Psych - Nml mood and affect Skin - Warm and dry Objective Data Vital Signs Vital Signs: Vital Signs - 24 hr 07/06/25 13:48 07/06/25 13:55 07/06/25 14:04 Temperature 97.3 F L Pulse Rate 86 90 92 Respiratory Rate 20 20 20 Blood Pressure 120/68 Pulse Oximetry 95 Oxygen Delivery Oxygen Flow Rate 07/06/25 16:50 07/06/25 16:56 07/06/25 20:04 Temperature Pulse Rate 83 85 94 Respiratory Rate 20 20 22 H Blood Pressure Pulse Oximetry Oxygen Delivery Oxygen Flow Rate 07/06/25 20:08 07/06/25 20:12 07/06/25 20:50 Temperature Pulse Rate 94 90 Respiratory Rate 20 Blood Pressure Pulse Oximetry 97 95 Oxygen Delivery Nasal Cannula Nasal Cannula Oxygen Flow Rate 5 3.5 07/06/25 20:59 07/06/25 22:00 07/07/25 04:51 Temperature 98.2 F Pulse Rate 90 90 85 Respiratory Rate 18 22 H Blood Pressure 127/72 Pulse Oximetry 97 Oxygen Delivery Oxygen Flow Rate 07/07/25 04:59 07/07/25 06:00 07/07/25 07:50 Temperature 97.6 F Pulse Rate 87 86 Respiratory Rate 22 H 18 Blood Pressure 117/66 Pulse Oximetry 97 99 Oxygen Delivery Nasal Cannula Oxygen Flow Rate 3.5 07/07/25 07:50 07/07/25 07:58 07/07/25 08:00 Temperature Pulse Rate 93 88 88 Respiratory Rate 16 16 Blood Pressure Pulse Oximetry Oxygen Delivery Oxygen Flow Rate 07/07/25 08:00 07/07/25 11:53 07/07/25 12:00 Temperature Pulse Rate 88 83 79 Respiratory Rate 16 16 16 Blood Pressure Pulse Oximetry 99 Oxygen Delivery Nasal Cannula Oxygen Flow Rate 3.5 Intake/Output Intake/Output: Intake & Output 07/04/25 07/05/25 07/06/25 07/07/25 23:59 23:59 23:59 23:59 Intake Total 240 5650 884 1849 Output Total 1650 1000 Balance 240 1280 -1110 360 Meds/Results Medications: Active Medications Generic Name Dose Route Start Last Admin Trade Name Freq PRN Reason Stop Dose Admin Acetaminophen 650 mg 07/05/25 00:12 Acetaminophen 325 Mg Tablet PO Q4H PRN fever >100.4 Albuterol/Ipratropium 3 ml 07/04/25 20:00 07/07/25 11:52 Ipratropium 0.5 Mg/Albuterol Sulfate 2.5 Mg (Base) Ampul.Neb 3 Ml INHALATION 3 ml QIDRT RADHA Administration Albuterol/Ipratropium 3 ml 07/04/25 17:40 07/07/25 04:51 Ipratropium 0.5 Mg/Albuterol Sulfate 2.5 Mg (Base) Ampul.Neb 3 Ml INHALATION 3 ml Q4H PRN Administration SHORTNESS OF BREATH/WHEEZING Aspirin 81 mg 07/05/25 08:00 07/07/25 07:52 Aspirin 81 Mg Chewable Tablet PO 81 mg DAILY@0800 RADHA Administration Benzocaine 1 lozenge 07/05/25 18:03 07/05/25 18:13 Benzocaine/Menthol (*Bkc) 18 Ea Lozenge PO 1 lozenge PRN PRN Administration Sore Throat Benzonatate 200 mg 07/05/25 09:00 07/07/25 08:00 Benzonatate 100 Mg Capsule PO 200 mg TID RADHA Administration Calcium Carbonate 200 mg 07/05/25 22:54 07/06/25 21:06 Calcium Carbonate (Tums) 500 Mg (200 Mg Elemental) PO 200 mg Q6H PRN Administration Indigestion Diazepam 5 mg 07/04/25 17:50 07/07/25 08:00 Diazepam (*Crx) 5 Mg Tablet PO 5 mg TID RADHA Administration Diazepam 2.5 mg 07/04/25 17:48 07/07/25 04:20 Diazepam Inj (*Crx) 10 Mg/2 Ml Syringe IV PUSH 2.5 mg Q4H PRN Administration ANXIETY,RESTLESSNESS,AGITATION Guaifenesin 1,200 mg 07/05/25 21:00 07/07/25 08:00 Guaifenesin 12 Hr 600 Mg Tabcr PO 1,200 mg Q12HR RADHA Administration Metoprolol Tartrate 25 mg 07/04/25 21:00 07/07/25 08:00 Metoprolol Tartrate 25 Mg Tablet PO 25 mg Q12HR RADHA Administration Morphine Sulfate 15 mg 07/04/25 21:00 07/07/25 08:00 Morphine Sulfate (*Crx) 15 Mg Tabcr PO 15 mg Q12HR RADHA Administration Morphine Sulfate 2 mg 07/05/25 00:16 Morphine Sulfate (*Crx) 4 Mg/Ml Inj IV PUSH Q2H PRN Pain Rated 1-3 Morphine Sulfate 4 mg 07/05/25 00:16 07/06/25 11:44 Morphine Sulfate (*Crx) 4 Mg/Ml Inj IV PUSH 4 mg Q2H PRN Administration Pain Rated 4-6 Morphine Sulfate 6 mg 07/05/25 00:16 07/07/25 08:03 Morphine Sulfate Inj (*Crx) 10 Mg/Ml Amp IV PUSH 6 mg Q2H PRN Administration Pain Rated 7-10 Ondansetron HCl 4 mg 07/04/25 17:42 07/07/25 00:11 Ondansetron Inj 4 Mg/2 Ml Vial IV PUSH 4 mg Q4H PRN Administration Nausea Polyethylene Glycol 17 gm 07/05/25 00:20 Polyethylene Glycol 3350 17 Gm Powd.Pack PO QAM PRN Constipation Prednisone 10 mg 07/05/25 08:00 07/07/25 07:52 Prednisone 10 Mg Tablet PO 10 mg DAILY@0800 RADHA Administration Senna/Docusate Sodium 1 tab 07/05/25 09:00 07/07/25 08:02 Senna/Docusate Sodium Tablet PO 1 tab Q12HR RADHA Administration Sertraline HCl 50 mg 07/05/25 21:00 07/06/25 20:59 Sertraline Hcl 50 Mg Tablet PO 50 mg QHS RADHA Administration Venlafaxine HCl 300 mg 07/05/25 08:00 07/07/25 07:52 Venlafaxine Hcl Xr 75 Mg Cap.Er.24h PO 300 mg DAILY@0800 RADHA Administration
[2025-07-07] MEDS: oxyCODONE HCL (*CRX) 5 MG TAB IR 10 MG PO ×3 (12:39→20:48)
[2025-07-07] MEDS: SERTRALINE HCL 50 MG TABLET PO (20:48)
[2025-07-08] VITALS (16 sets, daily range): BP systolic 113–138; BP diastolic 61–79; PULSE 51–92; RESP 16–22; TEMP 36.2–36.8; O2SAT 96–100
[2025-07-08] MEDS: diazePAM (*CRX) 5 MG TABLET PO ×3 (08:04→16:34)
[2025-07-08] MEDS: BENZONATATE 100 MG CAPSULE 200 MG PO ×3 (08:04→16:34)
[2025-07-08] MEDS: VENLAFAXINE HCL XR 75 MG CAP.ER.24H 300 MG PO (08:04)
[2025-07-08] MEDS: ASPIRIN 81 MG CHEWABLE TABLET PO (08:04)
[2025-07-08] MEDS: MORPHINE SULFATE (*CRX) 15 MG TABCR PO ×2 (08:05→20:49)
[2025-07-08] MEDS: METOPROLOL TARTRATE 25 MG TABLET PO ×2 (08:05→20:54)
[2025-07-08] MEDS: guaiFENesin 12 HR 600 MG TABCR 1200 MG PO ×2 (08:05→20:55)
[2025-07-08] MEDS: SENNA/DOCUSATE SODIUM TABLET 1 TAB PO ×2 (08:05→20:49)
[2025-07-08] MEDS: oxyCODONE HCL (*CRX) 5 MG TAB IR 10 MG PO ×4 (08:05→20:50)
[2025-07-08] MEDS: IPRATROPIUM 0.5 MG/ALBUTEROL SULFATE 2.5 MG (BASE) AMPUL.NEB 3 ML INHALATION ×4 (08:33→21:26)
[2025-07-08] MEDS: diazePAM INJ (*CRX) 10 MG/2 ML SYRINGE 2.5 MG IV PUSH ×2 (11:56→23:06)
[2025-07-08] MEDS: CALCIUM CARBONATE (TUMS) 500 MG (200 MG ELEMENTAL) PO (12:19)
--- NOTE | 2025-07-08 13:14 | P.PNIM_ITS ---
Progress Note: A&P Assessment and Plan (1) Hospice care patient: Code(s): Z51.5 - Encounter for palliative care Status: Acute Assessment and Plan: Patient admitted for hospice care for uncontrolled symptoms of dyspnea, pain, anxiety. Comfort meds ordered. Will need placement due to inability to take care of herself and living home alone. Morphine drip recommended by hospice provider but patient is not in distress with normal RR. Consider morphine drip if her condition worsens. Patient is requesting using oxycodone and has had benefit with this medication. Oxycodone ordered prn for breakthrough pain. Prednisone advanced for wheezing. Continue Miralax Comfort measures. Code status - DNR Placement being arranged. Discharge at any time Subjective Date/time seen: 07/08/25 13:14 Interval history: 65yo female with end-stage COPD, anxiety, fibromyalgia and chronic resp failure who presents to the ED on 07/04/2025 via EMS from home alone with complaints of increased shortness of breath and hypoxia. Anxious about being 'kicked out'. Feels better overall. contract agent in the room - placement still being worked out Exam Narrative: AF 97.2 116/79 92 20 100% 3.5L Gen - NARD Chest - inspiratory rhonchi with end-expiratory wheeze. CV - RRR S1/S2 Abd - Soft, NT/ND, Positive BS Ext - No pedal edema Psych - Nml mood and affect Skin - Warm and dry Objective Data Vital Signs Vital Signs: Vital Signs - 24 hr 07/07/25 14:00 07/07/25 15:22 07/07/25 15:29 Temperature 98.4 F Pulse Rate 64 100 92 Respiratory Rate 20 24 H 24 H Blood Pressure 118/62 Pulse Oximetry 96 Oxygen Delivery Oxygen Flow Rate 07/07/25 20:00 07/07/25 20:07 07/07/25 20:09 Temperature Pulse Rate 98 98 Respiratory Rate 22 H Blood Pressure Pulse Oximetry 94 94 Oxygen Delivery Nasal Cannula Nasal Cannula Oxygen Flow Rate 3.5 3.5 07/07/25 20:17 07/07/25 20:18 07/07/25 20:32 Temperature 97.0 F L Pulse Rate 95 100 100 Respiratory Rate 22 H 20 Blood Pressure 126/68 Pulse Oximetry 94 Oxygen Delivery Oxygen Flow Rate 07/08/25 03:27 07/08/25 08:00 07/08/25 08:03 Temperature 97.2 F L Pulse Rate 70 87 Respiratory Rate 18 Blood Pressure 113/61 116/79 Pulse Oximetry 100 100 100 Oxygen Delivery Nasal Cannula Oxygen Flow Rate 3.5 07/08/25 08:05 07/08/25 08:33 07/08/25 08:45 Temperature Pulse Rate 87 88 92 Respiratory Rate 20 20 Blood Pressure Pulse Oximetry Oxygen Delivery Oxygen Flow Rate Intake/Output Intake/Output: Intake & Output 07/05/25 07/06/25 07/07/25 07/08/25 23:59 23:59 23:59 23:59 Intake Total 9795 803 5070 530 Output Total 1650 2400 700 Balance 1280 -1110 -80 -170 Meds/Results Medications: Active Medications Generic Name Dose Route Start Last Admin Trade Name Freq PRN Reason Stop Dose Admin Acetaminophen 650 mg 07/05/25 00:12 Acetaminophen 325 Mg Tablet PO Q4H PRN fever >100.4 or pain 1-3 Albuterol/Ipratropium 3 ml 07/04/25 20:00 07/08/25 08:33 Ipratropium 0.5 Mg/Albuterol Sulfate 2.5 Mg (Base) Ampul.Neb 3 Ml INHALATION 3 ml QIDRT RADHA Administration Albuterol/Ipratropium 3 ml 07/04/25 17:40 07/07/25 04:51 Ipratropium 0.5 Mg/Albuterol Sulfate 2.5 Mg (Base) Ampul.Neb 3 Ml INHALATION 3 ml Q4H PRN Administration SHORTNESS OF BREATH/WHEEZING Aspirin 81 mg 07/05/25 08:00 07/08/25 08:04 Aspirin 81 Mg Chewable Tablet PO 81 mg DAILY@0800 [facility] Administration Benzocaine 1 lozenge 07/05/25 18:03 07/05/25 18:13 Benzocaine/Menthol (*Bkc) 18 Ea Lozenge PO 1 lozenge PRN PRN Administration Sore Throat Benzonatate 200 mg 07/05/25 09:00 07/08/25 12:18 Benzonatate 100 Mg Capsule PO 200 mg TID RADHA Administration Calcium Carbonate 200 mg 07/05/25 22:54 07/08/25 12:19 Calcium Carbonate (Tums) 500 Mg (200 Mg Elemental) PO 200 mg Q6H PRN Administration Indigestion Diazepam 5 mg 07/04/25 17:50 07/08/25 12:18 Diazepam (*Crx) 5 Mg Tablet PO 5 mg TID RADHA Administration Diazepam 2.5 mg 07/04/25 17:48 07/08/25 11:56 Diazepam Inj (*Crx) 10 Mg/2 Ml Syringe IV PUSH 2.5 mg Q4H PRN Administration ANXIETY,RESTLESSNESS,AGITATION Guaifenesin 1,200 mg 07/05/25 21:00 07/08/25 08:05 Guaifenesin 12 Hr 600 Mg Tabcr PO 1,200 mg Q12HR RADHA Administration Metoprolol Tartrate 25 mg 07/04/25 21:00 07/08/25 08:05 Metoprolol Tartrate 25 Mg Tablet PO 25 mg Q12HR RADHA Administration Morphine Sulfate 15 mg 07/04/25 21:00 07/08/25 08:05 Morphine Sulfate (*Crx) 15 Mg Tabcr PO 15 mg Q12HR RADHA Administration Morphine Sulfate 6 mg 07/05/25 00:16 07/07/25 08:03 Morphine Sulfate Inj (*Crx) 10 Mg/Ml Amp IV PUSH 6 mg Q2H PRN Administration Pain Rated 7-10 Ondansetron HCl 4 mg 07/04/25 17:42 07/07/25 00:11 Ondansetron Inj 4 Mg/2 Ml Vial IV PUSH 4 mg Q4H PRN Administration Nausea Oxycodone HCl 10 mg 07/07/25 12:21 07/08/25 12:19 Oxycodone Hcl (*Crx) 5 Mg Tab Ir PO 10 mg Q4H PRN Administration Pain Rated 4-6 Polyethylene Glycol 17 gm 07/08/25 09:00 07/08/25 08:05 Polyethylene Glycol 3350 17 Gm Powd.Pack PO Not Given QAM [facility] Prednisone 40 mg 07/08/25 08:00 07/08/25 08:04 Prednisone 20 Mg Tablet PO 40 mg DAILY@0800 RADHA Administration Senna/Docusate Sodium 1 tab 07/05/25 09:00 07/08/25 08:05 Senna/Docusate Sodium Tablet PO 1 tab Q12HR RADHA Administration Sertraline HCl 50 mg 07/05/25 21:00 07/07/25 20:48 Sertraline Hcl 50 Mg Tablet PO 50 mg QHS RADHA Administration Venlafaxine HCl 300 mg 07/05/25 08:00 07/08/25 08:04 Venlafaxine Hcl Xr 75 Mg Cap.Er.24h PO 300 mg DAILY@0800 RADHA Administration
[2025-07-08] MEDS: SERTRALINE HCL 50 MG TABLET PO (20:49)
[2025-07-08] MEDS: ONDANSETRON INJ 4 MG/2 ML VIAL IV PUSH (20:53)
[2025-07-08] MEDS: MORPHINE SULFATE INJ (*CRX) 10 MG/ML AMP 6 MG IV PUSH (23:05)
[2025-07-09] VITALS (8 sets, daily range): BP systolic 121–146; BP diastolic 72–94; PULSE 60–94; RESP 16–20; TEMP 36.4–37; O2SAT 95–98
[2025-07-09] MEDS: diazePAM INJ (*CRX) 10 MG/2 ML SYRINGE 2.5 MG IV PUSH (02:59)
[2025-07-09] MEDS: oxyCODONE HCL (*CRX) 5 MG TAB IR 10 MG PO ×3 (03:58→12:55)
[2025-07-09] MEDS: IPRATROPIUM 0.5 MG/ALBUTEROL SULFATE 2.5 MG (BASE) AMPUL.NEB 3 ML INHALATION ×2 (07:49→11:17)
[2025-07-09] MEDS: VENLAFAXINE HCL XR 75 MG CAP.ER.24H 300 MG PO (08:58)
[2025-07-09] MEDS: ASPIRIN 81 MG CHEWABLE TABLET PO (08:58)
[2025-07-09] MEDS: MORPHINE SULFATE (*CRX) 15 MG TABCR PO (08:59)
[2025-07-09] MEDS: BENZONATATE 100 MG CAPSULE 200 MG PO ×2 (08:59→12:26)
[2025-07-09] MEDS: guaiFENesin 12 HR 600 MG TABCR 1200 MG PO (08:59)
[2025-07-09] MEDS: diazePAM (*CRX) 5 MG TABLET PO ×2 (08:59→12:26)
[2025-07-09] MEDS: SENNA/DOCUSATE SODIUM TABLET 1 TAB PO (08:59)
[2025-07-09] MEDS: METOPROLOL TARTRATE 25 MG TABLET PO (08:59)
[2025-07-09] MEDS: ONDANSETRON INJ 4 MG/2 ML VIAL IV PUSH (12:25)
--- NOTE | 2025-07-09 12:43 | P.DS_ITS ---
DS: Admitting Diagnosis Discharge Date 07/09/25 Admitting Diagnosis Shortness of breath and comfort care DS: Discharge Diagnosis Discharge Diagnosis (1) Hospice care patient: Code(s): Z51.5 - Encounter for palliative care Status: Acute DS: Summary Hospital Course Reason for hospitalization: 65yo female with end-stage COPD, anxiety, fibromyalgia and chronic resp failure who presents to the ED on 07/04/2025 via EMS from home alone with complaints of increased shortness of breath and hypoxia. Please see H&P for detials. Hospital Course: Patient admitted for hospice care for uncontrolled symptoms of dyspnea, pain, anxiety. Comfort meds ordered. Placement needed to be arranged due to her inability to take care of herself living home alone. Medications adjusted with improvement. Placement arranged and she was discharged on 07/09/25 under hospice care. Status at Discharge Cognitive/behavioral status at discharge: stable Time Spent with Patient Time attestation: Total time spent providing and/or coordinating discharge services: 32 minutes Time spent: Greater than 30 minutes Exam Narrative: AF 97.6 121/72 78 20 96% 4L Gen - NARD Chest - scattered rhonchi CV - RRR S1/S2 Abd - Soft, NT/ND, Positive BS Ext - No pedal edema Psych - Nml mood and affect Skin - Warm and dry Discharge Plan Discharge Attending physician on discharge: Vladimir Starks Discharging Clinician: Vladimir Starks Anticipated Discharge Date/Time: 07/09/25 12:47 Patient Disposition: [place] Shelter/Asst Living Activity: as tolerated Diet: regular Discharge Instructions: Follow-up with Hospice at the facility. Continue O2 at 4L to keep SpO2>94% Thank you for using [facility] for your health care needs. Patient Instructions: Antibiotic Form Patient Language: Qatari Stand Alone Forms: General Discharge Information Follow-up/Referrals: UNKNOWN,DOCTOR [Primary Care Provider] Discharge Medications: Continued buspirone 5 mg tablet 5 mg PO TID hydromorphone 2 mg tablet 2 mg PO Q4H PRN (Reason: pain) morphine 15 mg tablet extended release 15 mg PO Q12H sertraline 50 mg tablet 50 mg PO QHS diazepam [Valium] 5 mg tablet 5 mg PO TID PRN (Reason: anxiety) esomeprazole magnesium 40 mg capsule,delayed release(DR/EC) 40 mg PO Q12H prednisone 10 mg tablet 10 mg PO DAILY 30 Days Qty: 0 0RF mirtazapine 30 mg tablet,disintegrating 30 mg PO HS 30 Days Qty: 0 0RF albuterol sulfate 2.5 mg /3 mL (0.083 %) solution for nebulization 2.5 mg continuous nebulization QID 30 Days Qty: 0 0RF benzonatate 200 mg capsule 200 mg PO TID 30 Days Qty: 0 0RF ondansetron HCl 4 mg tablet 4 mg PO DAILY PRN (Reason: nausea and vomiting) 30 Days Qty: 0 0RF sennosides-docusate sodium [Stimulant Laxative Plus] 8.6-50 mg tablet 1 tab-cap PO BID 30 Days Qty: 0 0RF venlafaxine 150 mg capsule,extended release 24hr 300 mg PO DAILY 30 Days Qty: 0 0RF aspirin 81 mg tablet,delayed release (DR/EC) 81 mg PO DAILY 30 Days Qty: 0 0RF albuterol sulfate 90 mcg/actuation HFA aerosol inhaler 2 puff INHALATION Q6H PRN (Reason: Wheezing) 30 Days Qty: 0 0RF metoprolol tartrate 25 mg tablet 25 mg PO Q12H 30 Days Qty: 0 0RF guaifenesin [Mucinex] 1,200 mg tablet extended release 12hr 1,200 mg PO Q12H 30 Days Qty: 0 0RF Dupixent Pen 300 mg/2 mL pen injector 300 mg SUBCUT .COMPLEX 30 Days Qty: 0 0RF Rx Instructions: 300 mg subcutaneously every two weeks.; Trelegy Ellipta 200-62.5-25 mcg blister with device 1 inh INHALATION DAILY 30 Days Qty: 0 0RF Discontinued hydromorphone 2 mg tablet 2 mg PO Q4H PRN (Reason: pain) 30 Days Qty: 0 0RF lorazepam 1 mg tablet 1 mg PO Q4H PRN (Reason: anxiety) 30 Days Qty: 0 0RF Date of admission: 07/04/25 17:24 Primary Care Provider: UNKNOWN,DOCTOR Admitting Provider: Vladimir Starks Attending physician on admission: Vladimir Starks Condition: Terminal Hospitalist MIPS Heart Failure (Exclusion) Patient has history of Heart Transplant or Left Ventricular Assistive Device?: No IF YES, STOP HERE Heart Failure (Qualifier) Patient has current or prior documentation of LVEF less than or equal to 40%, or mod/servere depressed LVSF?: No IF NO, STOP HERE
== END 2025-07-09 13:40 | disposition hospice, inpatient (51) | DRG 951 ==
PROVIDERS: Emergency Medicine; Admitting Provider Internal Medicine; Visit Provider Internal Medicine
DX: Z51.5 Encounter for palliative care (principal); J96.21 Acute and chronic respiratory failure with hypoxia; J44.1 Chronic obstructive pulmonary disease with (acute) exacerbation; F41.9 Anxiety disorder, unspecified; D63.8 Anemia in other chronic diseases classified elsewhere; F17.290 Nicotine dependence, other tobacco product, uncomplicated; M79.7 Fibromyalgia; Z66 Do not resuscitate; Z99.81 Dependence on supplemental oxygen; Z79.82 Long term (current) use of aspirin; Z79.899 Other long term (current) drug therapy
CPT/HCPCS: 36415; 71046; 80053; 85025; 93005; 94640; 96374; 96375; 99284; 99285; A9270; J2270; J2405; J3360; J7512